=== PATIENT | female | born 1965 | race Caucasian/White ===

== ENCOUNTER 2020-04-06 08:12 | Outpatient (REF) | payer OTHER, SELFPAY ==
[2020-04-06 08:41] LABS: COVID-19 Test Negative (Negative)
== END 2020-04-06 08:13 | disposition home or self-care (01) ==
LOC: HO.LAB 08:12
PROVIDERS: Visit Provider Internal Medicine
DX: Z20.828 Contact with and (suspected) exposure to other viral communicable diseases (principal)
CPT/HCPCS: 87635; C9803

== ENCOUNTER 2020-08-23 19:27 | Outpatient (REF) | payer OTHER, SELFPAY ==
--- NOTE | ~2020-08-23 | MR_ITS ---
EXAMINATION: MR CERVICAL SPINE WITHOUT CONTRAST CLINICAL INFORMATION: Cervical radiculopathy on left side. COMPARISON: None TECHNIQUE: MRI of the cervical spine was obtained using routine sequences without contrast. FINDINGS: VERTEBRAL BODIES AND PARASPINAL SOFT TISSUES: The marrow signal is homogeneous. There are no compression fractures. Mild disc space narrowing and mild retrosubluxation noted at the C5-C6 level. The paraspinal soft tissues are normal. The vertebral artery flow voids are maintained. The lung apices are clear. On the nondiagnostic localizer acquisition, there is a 2.8 x 1.6 cm cyst which appears to be in the strap musculature to the right of midline. There is an additional 1.8 cm cystic-appearing lesion in the midline floor of mouth and an another 1.7 cm cystic-appearing lesion in the midline tongue base posteriorly. There is question of a small sinus tract which may communicate between the cysts at the base of the tongue and floor of the mouth. The base of tongue cystic lesion also superiorly abuts the larger aforementioned cyst suspected to be within the strap musculature. CERVICOMEDULLARY JUNCTION AND VISUALIZED POSTERIOR FOSSA: The craniovertebral junction and imaged portions of the brain parenchyma appear normal. No cord signal abnormality or syrinx is seen. SPINAL LEVELS: C2-C3: No disc pathology, central canal stenosis, or foraminal narrowing. C3-C4: Very small central disc protrusion. No central canal stenosis or foraminal narrowing. C4-C5: No significant disc pathology. Patent central canal and foramina. C5-C6: Mild loss of disc height and broad-based posterior disc bulge with endplate spurring lateralized more so to the right side with flattening of the ventral thecal sac and impression upon the ventral cord. Significant right foraminal narrowing and mild left foraminal encroachment. C6-C7: No disc pathology. Patent central canal and foramina. C7-T1: No disc abnormality evident. No central canal stenosis or foraminal narrowing. MR/MR cervical spine wo con IMPRESSION: Disc-osteophyte complex and mild loss of disc height at the C5-C6 level lateralized more so to the right side with significant right foraminal encroachment. Mild generalized cervical spondylosis elsewhere with a small central disc protrusion at the C3-C4 level. Approximate 1.8 cm cystic lesion in the midline floor of mouth anteriorly with what appears to represent a sinus tract communicating with an another 1.7 cm cystic lesion in the midline tongue base. Additional inferiorly abutting larger 2.8 cm cyst which is suspected to be within the strap musculature to the right of midline. Although indeterminate, findings may be due to congenital foregut duplication cysts or an atypical presentation of multiple thyroglossal duct cysts. A dedicated MRI or CT scan of the neck with contrast is recommended for further evaluation.
== END 2020-08-23 19:28 | disposition home or self-care (01) ==
LOC: HO.MRI 19:27
PROVIDERS: PCP Internal Medicine; Visit Provider Internal Medicine
DX: M54.12 Radiculopathy, cervical region (principal)
CPT/HCPCS: 72141

== ENCOUNTER 2020-09-01 07:22 | Outpatient (REF) | payer OTHER, SELFPAY ==
[2020-09-01 11:07] LABS: MANUAL DIFF FLAG NO
[2020-09-01 11:12] LABS: Basophils Absolute Auto 0.1 X10*3/uL (0.0-0.2); Basophils Percent Auto 0.4 % (0-2); Eosinophils Absolute Auto 0.2 X10*3/uL (0.0-0.4); Eosinophils Percent Auto 1.3 % (0-4); Hematocrit 45.5 % (37-47); Hemoglobin 15.2 g/dl (12.0-16.0); Imm Gran Abs Auto 0.04 X10*3/uL (0.00-0.03); Imm Gran Pct Auto 0.3 % (0.0-0.4); Mean Corpuscular HGB Conc 33.4 g/dl (31.0-35.0); Mean Corpuscular Hemoglobin 30.9 pg (27.0-33.0); Mean Corpuscular Volume 92.5 fL (80-98); Mean Platelet Volume 10.9 fL (9.4-12.3); Monocytes Absolute Auto 0.7 X10*3/uL (0.1-1.2); Monocytes Percent Auto 5.7 % (2-11); Neutrophils Absolute Auto 9.6 X10*3/uL (2.0-8.3); Neutrophils Percent Auto 76.3 % (45-73); Platelet Count 260 X10*3/uL (160-400); Red Blood Count 4.92 X10*6/uL (4.20-5.50); Red Cell Distribution Width 13.2 % (11.0-16.0); White Blood Count 12.6 X10*3/uL (4.8-10.8)
[2020-09-01 18:03] LABS: Alanine Aminotransferase 17 U/L (0-31); Albumin Level 4.2 g/dL (3.5-5.0); Alkaline Phosphatase 74 U/L (39-117); Anion Gap 14 (12-20); Aspartate Amino Transferase 17 U/L (5-31); Bilirubin Total 0.3 mg/dL (0.0-1.0); Blood Urea Nitrogen 21 mg/dL (9-16); Calcium 8.9 mg/dL (8.4-10.2); Carbon Dioxide 27 mmol/L (22-29); Chloride 106 mmol/L (96-108); Cholesterol 293 mg/dL; Estimated Glomerular Filt Rate > 60; Glucose Fasting 90 mg/dL (60-99); HDL Cholesterol 56 mg/dL; LDL Cholesterol Calculated 216 mg/dl; Potassium 4.6 mmol/L (3.3-5.1); Sodium 142 mmol/L (135-145); Triglycerides 106 mg/dL
== END 2020-09-01 07:23 | disposition home or self-care (01) ==
LOC: HO.WFDLDS 07:22
PROVIDERS: Visit Provider Internal Medicine
DX: Z00.00 Encounter for general adult medical examination without abnormal findings (principal); Z13.220 Encounter for screening for lipoid disorders
CPT/HCPCS: 36415; 80053; 80061; 85025

== ENCOUNTER 2020-09-02 13:26 | Outpatient (REF) | payer OTHER, SELFPAY ==
--- NOTE | ~2020-09-02 | MR_ITS ---
EXAMINATION: MRI NECK WITHOUT AND WITH CONTRAST CLINICAL INFORMATION: Follow up evaluation of cystic structures on prior cervical MRI. COMPARISON: MRI cervical spine from 08/23/2020. TECHNIQUE: MRI of the neck was obtained using routine sequences without and with contrast. Intravenous contrast: Gadavist 6 mL. Limited study with motion artifacts. FINDINGS: As seen on the prior study, there are cystic lesions in the midline floor of the mouth distorting the geniohyoid musculature. The most anterior cyst measures approximately 1.2 x 1.6 x 1.4 symmetric in size. Minimal peripheral enhancement evident without diffusion signal abnormality. There is either a cyst or a linear tract at the posterior margin of the cyst which measures 1.2 x 0.6 cm in size. Posterior to this structure in the region of foramen cecum, there is another cystic-appearing lesion with mild peripheral enhancement at the midline tongue base measuring 1 x 1.6 x 0.9 cm. There is a larger lobulated cystic structure with peripheral enhancement inferiorly subtending the hyoid bone in the strap musculature, which measures 3 x 1.8 x 2.4 cm in size. The cystic lesion partially protrudes into the preepiglottic fat on the right side and distorts the floor of the vallecula on the right side. The fixed portion of the epiglottis is also distorted with some posterior deflection by the cystic lesion, as is the anterior aspect of the right aryepiglottic fold. There is a small heterogeneously enhancing 1 cm lesion in the left thyroid lobe. The thyroid gland is otherwise relatively normal. No cervical adenopathy is seen. The parotid and submandibular glands appear normal. The lung apices are clear. The nasopharynx is normal. The glottic portion of the larynx appears normal. The marrow signal is homogeneous. The imaged orbits are normal and the paranasal sinuses are fairly well aerated. MR/MR orbits face neck wo/w con IMPRESSION: Limited study with motion artifacts. Cystic lesions along the midline floor of the mouth with mild peripheral enhancement and no obvious diffusion signal abnormality. Most posterior cyst is at the level of the midline tongue base in the region of foramen cecum. Larger inferior lobulated cyst partially embedded within the strap musculature and protruding into the preepiglottic fat space, to underlie the hyoid bone. Although indeterminate, location and appearance of lesions favor multiple thyroglossal duct cysts. Recommend follow up ENT evaluation. The heterogeneously enhancing multilobulated 1 cm left thyroid lesion could be further assessed with follow up sonography.
== END 2020-09-02 13:27 | disposition home or self-care (01) ==
LOC: HO.MRI 13:26
PROVIDERS: Visit Provider Internal Medicine
DX: R93.89 Abnormal findings on diagnostic imaging of other specified body structures (principal)
CPT/HCPCS: 70543; A9585

== ENCOUNTER 2020-09-17 | Outpatient (REF) | payer OTHER, SELFPAY ==
[2020-09-21 15:17] LABS: H Pylori Breath Test NOT DETECTED (NOT DETECTED)
== END 2020-09-17 00:01 | disposition home or self-care (01) ==
LOC: HO.LNP
PROVIDERS: Visit Provider Nurse Practitioner
DX: R10.9 Unspecified abdominal pain (principal)
CPT/HCPCS: 83013

== ENCOUNTER → 2020-09-17 09:08 | Outpatient (BNVA) | payer OTHER, SELFPAY | PROVIDERS: PCP Internal Medicine; Visit Provider Nurse Practitioner ==

== ENCOUNTER 2020-09-21 14:15 | Outpatient (REF) | payer OTHER, SELFPAY ==
--- NOTE | ~2020-09-21 | XR_ITS ---
EXAMINATION: BILATERAL ELBOW X-RAY CLINICAL INFORMATION: Pain COMPARISON: None TECHNIQUE: 3 views of each elbow FINDINGS: Bone alignment is normal. No fracture or dislocation is seen. There are small osteophytes seen projecting off the coronoid processes bilaterally. The joint spaces are otherwise normal. There is no joint effusion. Soft tissues are normal. XR/XR elbow LT min 3V IMPRESSION: Small osteophytes projecting off the coronoid processes bases bilaterally. Otherwise unremarkable exam.
--- NOTE | ~2020-09-21 | XR_ITS ---
EXAMINATION: BILATERAL ELBOW X-RAY CLINICAL INFORMATION: Pain COMPARISON: None TECHNIQUE: 3 views of each elbow FINDINGS: Bone alignment is normal. No fracture or dislocation is seen. There are small osteophytes seen projecting off the coronoid processes bilaterally. The joint spaces are otherwise normal. There is no joint effusion. Soft tissues are normal. XR/XR elbow RT min 3V IMPRESSION: Small osteophytes projecting off the coronoid processes bases bilaterally. Otherwise unremarkable exam.
--- NOTE | ~2020-09-21 | XR_ITS ---
EXAMINATION: XR THORACIC SPINE CLINICAL INFORMATION: Pain COMPARISON: None TECHNIQUE: 3 views of the thoracic spine were obtained. FINDINGS: Bone alignment is normal. No fracture or dislocation is seen. Disc spaces are normal. Paraspinal soft tissues are normal. XR/XR thoracic spine 3V IMPRESSION: Unremarkable examination.
[2020-09-21 15:17] LABS: MANUAL DIFF FLAG NO
[2020-09-21 15:23] LABS: Basophils Percent Auto 0.4 % (0-2); Eosinophils Absolute Auto 0.2 X10*3/uL (0.0-0.4); Eosinophils Percent Auto 1.8 % (0-4); Hematocrit 39.7 % (37-47); Hemoglobin 13.7 g/dl (12.0-16.0); Imm Gran Abs Auto 0.04 X10*3/uL (0.00-0.03); Imm Gran Pct Auto 0.4 % (0.0-0.4); Lymphocytes Percent Auto 18.6 % (20-40); Mean Corpuscular HGB Conc 34.5 g/dl (31.0-35.0); Mean Corpuscular Volume 89.8 fL (80-98); Mean Platelet Volume 10.5 fL (9.4-12.3); Monocytes Absolute Auto 0.6 X10*3/uL (0.1-1.2); Monocytes Percent Auto 6.1 % (2-11); Neutrophils Absolute Auto 7.7 X10*3/uL (2.0-8.3); Neutrophils Percent Auto 72.7 % (45-73); Platelet Count 244 X10*3/uL (160-400); Red Blood Count 4.42 X10*6/uL (4.20-5.50); Red Cell Distribution Width 12.8 % (11.0-16.0); White Blood Count 10.5 X10*3/uL (4.8-10.8)
== END 2020-09-21 14:16 | disposition home or self-care (01) ==
LOC: HO.LAB 14:15
PROVIDERS: PCP Internal Medicine; Visit Provider Internal Medicine
DX: D72.829 Elevated white blood cell count, unspecified (principal); M25.522 Pain in left elbow; M25.521 Pain in right elbow; M54.6 Pain in thoracic spine
CPT/HCPCS: 36415; 72072; 73080; 85025

== ENCOUNTER 2020-10-21 17:57 | Outpatient (REF) | payer OTHER, SELFPAY ==
--- NOTE | ~2020-10-21 | MR_ITS ---
EXAMINATION: Unenhanced and IV contrast enhanced MRI of the neck, orbit and face. CLINICAL INFORMATION: Follow-up abnormality on prior MRI. Cystic structures on floor of mouth. Cystic lesion in neck. Abnormality noted on 09/02/2020 MRI of the neck and 08/23/2020 MRI of the cervical spine. COMPARISON: MRI cervical spine 08/23/2020, MRI neck, orbits and facial region 09/02/2020 TECHNIQUE: MRI of the neck, orbits and face was obtained using routine sequences without and with contrast. Intravenous contrast: Gadavist 6 mL. FINDINGS: No cervical adenopathy is identified. The parotid glands are homogeneous in signal. The previously noted cystic lesions within the sublingual space and right parasagittal anterior neck are unchanged compared with 09/02/2020. Multiple well-circumscribed uniform high T2-weighted cystic foci are present along the midline of the sublingual region with mass effect upon the geniohyoid musculature. The largest discrete cystic focus measures 1.6 cm in diameter and is present anteriorly. As previously noted, this larger sublingual cystic focus demonstrates minimal peripheral thin contiguous enhancement (series 8 image 21). Closely approximated or possibly contiguous multifocal cystic areas which are midline and just right of midline are noted more posteriorly to the larger lesion within the sublingual space without associated nodular enhancement. A lobulated cystic region measuring 3 cm X 1.8 cm X 2.4 cm subtends the hyoid bone within the strap musculature along the right parasagittal anterior aspect of the neck and is unchanged in size, configuration and associated mass effect. This focus demonstrates mild thin peripheral enhancement without evidence of associated nodular enhancement or MRI-identifiable calcifications. A component of this lesion protrudes into the right parasagittal preepiglottic fat and partially effaces the right lateral aspect of the vallecula. A heterogeneously enhancing nodule within the left lobe of the thyroid measures 1.6 cm X 1.2 cm in transverse axial dimensions (series 6 image 35, series 8 image 35). Making allowances for interval differences in slice selection, this lesion is unchanged compared with 01/02/2021 based on contemporaneous review of the 09/02/2020 examination. No cervical lymphadenopathy is visualized. Susceptibility artifact consistent with the presence of an anterior plate and screw fixation is newly visualized at C5-C6. The parotid, submandibular and visualized components of the sublingual glands are normal in appearance. MR/MR orbits face neck wo/w con IMPRESSION: 1. Unchanged floor of mouth and right anterior cervical cystic lesions. Lesions are present within the midline sublingual region and right parasagittal anterior cervical region. The lesions demonstrate minimal thin peripheral enhancement. This finding may represent a thyroglossal duct cyst with extension into the floor the mouth. These lesions demonstrate no nodular or masslike components nor definitive MRI-identifiable associated calcifications. Rarely thyroglossal duct cysts may be associated with the development of papillary thyroid carcinoma which may manifest as calcifications or masses associated with the thyroglossal duct cyst. 2. Unchanged 1.6 cm indeterminate nodule within the left lobe of the thyroid. Given that this nodule measures greater than 1.5 cm in diameter, as clinically indicated, recommend further evaluation with dedicated thyroid ultrasonography and possible fine-needle aspiration biopsy as warranted based on sonographic evaluation. 3. Status post C5-C6 anterior cervical discectomy and fusion, new compared with 09/02/2020.
== END 2020-10-21 17:58 | disposition home or self-care (01) ==
LOC: HO.MRI 17:57
PROVIDERS: Visit Provider Internal Medicine
DX: R93.89 Abnormal findings on diagnostic imaging of other specified body structures (principal)
CPT/HCPCS: 70543; A9585

== ENCOUNTER 2020-10-28 16:05 | Outpatient (REF) | payer OTHER, SELFPAY ==
--- NOTE | ~2020-10-28 | US_ITS ---
EXAMINATION: US THYROID CLINICAL INFORMATION: Lesion of thyroid. COMPARISON: None TECHNIQUE: Linear transducer grayscale and color Doppler examination with attention to the region of the thyroid. FINDINGS: SIZE: Measurements of the thyroid lobes and nodules are given in sagittal, anteroposterior and transverse dimensions respectively. Right Thyroid Lobe: 5.3 x 2.3 x 1.8 cm, volume 11.5 mL. Parenchyma: The gland echotexture is homogeneous. Thyroid vascularity is normal. Left Thyroid Lobe: 5.1 x 2.2 x 2.1 cm, volume 12.3 mL. Parenchyma: The gland echotexture is homogeneous. Thyroid vascularity is normal. Isthmus: 0.3 cm in maximum AP dimension. Estimated total number of nodules greater than or equal to 1 cm: 2. Comprehensive Advisor nodules are described as follows: 1. Location: Left mid. Size: 1.6 x 1.0 x 1.2 cm, volume 1.0 mL. Nodule characteristics: Composition: Solid/almost completely solid (2). Echogenicity: Hyperechoic (1). Shape: Not taller than wide (0). Margins: Smooth (0). Echogenic Foci: Punctate echogenic foci (3). ACR TI-RADS total points: 6 ACR TI-RADS category: 4 2. Location: Left mid. Size: 1.0 x 0.8 x 0.9 cm, volume 0.4 mL. Nodule characteristics: Composition: Solid/almost completely solid (2). Echogenicity: Isoechoic (1). Shape: Not taller than wide (0). Margins: Ill-defined (0). Echogenic Foci: None (0). ACR TI-RADS total points: 3 ACR TI-RADS category: 3 3. Location: Right inferior. Size: 0.4 x 0.3 x 0.3 cm, volume 0.02 mL. Nodule characteristics: Composition: Solid/almost completely solid (2). Echogenicity: Hypoechoic (2). Shape: Not taller than wide (0). Margins: Ill-defined (0). Echogenic Foci: None (0). ACR TI-RADS total points: 4 ACR TI-RADS category: 4 NODES: No lymphadenopathy is seen in the tissue surrounding the thyroid gland. US/US thyroid IMPRESSION: A dominant nodule in the upper mid left thyroid lobe is demonstrated. TI-RADS category 4, 1.6 cm, this would meet the ACR TI-RADS criteria recommendation for FNA. Nodule #1. (Referring physician staff is being called, to be alerted of the above findings and recommendations.) CM ACR TI-RADS RECOMMENDATION REFERENCE: Ultrasound-guided fine-needle aspiration, followup ultrasound, no further follow up. * TR1 (0 point) and TR 2 (2 points): No FNA or follow up * TR3 (3 points): FNA if more than or equal to 2.5 cm in maximum dimension, followup ultrasound in 1, 3 and 5 years if 1.5 to 2.4 cm in maximum dimension. * TR4 (4-6 points): FNA if more than or equal to 1.5 cm in maximum dimension, followup ultrasound in 1, 2, 3 and 5 years if 1 to 1.4 cm in maximum dimension. * TR5 (more than or equal to 7 points): FNA if more than or equal to 1 cm in maximum dimension, followup ultrasound every year for 5 years if 0.5 to 0.9 cm in maximum dimension. * TR3, TR4 or TR5 nodules that are below the size threshold for follow up receive no follow up.
== END 2020-10-28 16:06 | disposition home or self-care (01) ==
LOC: HO.US 16:05
PROVIDERS: PCP Internal Medicine; Visit Provider Internal Medicine
DX: E07.89 Other specified disorders of thyroid (principal)
CPT/HCPCS: 76536

== ENCOUNTER 2020-11-11 09:59 | Outpatient (REF) | payer OTHER, SELFPAY ==
[2020-11-11 13:33] LABS: Free T4 (Free Thyroxine) 1.04 ng/dL (0.71-1.85); Thyroid Stimulating Hormone 0.78 uIU/mL (0.32-4.0)
== END 2020-11-11 10:00 | disposition home or self-care (01) ==
LOC: HO.LAB 09:59
PROVIDERS: PCP Internal Medicine; Visit Provider Internal Medicine
DX: E04.2 Nontoxic multinodular goiter (principal); Z79.899 Other long term (current) drug therapy; Z87.891 Personal history of nicotine dependence
CPT/HCPCS: 36415; 84439; 84443

== ENCOUNTER 2020-11-15 10:55 | Outpatient (REF) | payer OTHER, SELFPAY ==
--- NOTE | ~2020-11-15 | XR_ITS ---
EXAMINATION: XR CERVICAL SPINE CLINICAL INFORMATION: Status post C5-C6 ACDF COMPARISON: None TECHNIQUE: 6 views of the cervical spine, inclusive of flexion and extension views, were obtained. FINDINGS: There is mild straightening of cervical lordosis. There is ventral plate and screws at C5 and C6 vertebra with intervening bone graft for anterior fusion. Rest of the disc levels, vertebral heights and alignment is normal. On flexion and extension views there is no subluxation seen visualized fused levels and rest of the cervical spine. The craniovertebral junction is normal. No acute fracture seen. The prevertebral soft tissues are normal. XR/XR cervical spine min 6V IMPRESSION: Bone graft and anterior plate and screws for C5-C6 disc fusion. Rest of the visualized cervical spine is unremarkable. There is no subluxation seen on flexion-extension views at the fused level or in the rest of the cervical spine.
== END 2020-11-15 10:56 | disposition home or self-care (01) ==
LOC: HO.XRAY 10:55
PROVIDERS: PCP Internal Medicine; Referring Provider Internal Medicine; Visit Provider Neurological Surgery
DX: M43.22 Fusion of spine, cervical region (principal)
CPT/HCPCS: 72052

== ENCOUNTER 2020-11-18 07:28 | Outpatient (REF) | payer OTHER, SELFPAY ==
--- NOTE | 2020-11-18 08:08 | PM.OP ---
Brief Operative Note Date of Service: 11/18/20 Surgeon: Karla Barbour, DO This is doctor Karla Barbour. This is an ultrasound-guided fine-needle aspiration report. Date of Examination: 11/18/2020 Indication: Multinodular Thyroid Porcedure: Procedure was explained to the patient. Alternatives, the risk and benefits were discussed. Written consent was obtained. A time-out was also obtained. After sterile preparation, fine-needle aspiration of a left mid pole 1.6 cm thyroid nodule was performed using direct ultrasound guidance to confirm accurate needle placement. Four aspirations were made using 27 gauge needles. Samples were submitted for cytology. One pass was dedicated for [employer] Gene sequencing waste and batting waste chopper testing. The patient tolerated the procedure well. Aftercare instructions were provided. Impression: Uncomplicated fine needle aspiration biopsy of a left mid pole 1.6 cm thyroid nodule under ultrasound guidance. Was an Calciner Operator used for this Procedure?: No Estimated blood loss (mL): 0
[2020-11-18] MEDS: Lidocaine HCl 1 % MPF 5 ML VIAL SUBCUT (08:48)
== END 2020-11-18 07:29 | disposition home or self-care (01) ==
LOC: HO.US 07:28
PROVIDERS: PCP Internal Medicine; Referring Provider Internal Medicine; Visit Provider Internal Medicine
DX: E04.2 Nontoxic multinodular goiter (principal)
CPT/HCPCS: 10005; 88172; 88173

== ENCOUNTER 2020-11-26 07:13 | Day surgery (SDC) | payer OTHER, SELFPAY ==
[2020-11-22 15:14] VITALS: BMI 24.4
--- NOTE | 2020-11-25 08:28 | HO.ANESPROP2 ---
Documented by User: Danyell Duran 11/25/20 08:29 HPI - Anesthesia Eval Consult details Narrative: 55yo F for Upper Endoscopy and Colonoscopy PMFSH Active Problems Active Problems: All Active Problems (Updated 11/22/20 @ 15:17 by Mary Garza) Nausea and vomiting (Acute) Abdominal bloating (Acute) Colon cancer screening (Acute) Multinodular thyroid (Acute) Past Medical History Medical History (Updated 11/26/20 @ 08:27 by Carin Lockwood) Cervical radiculopathy Elevated cholesterol Glaucoma Hx of gastritis Hx of migraine headaches Multinodular thyroid Osteoarthritis TMJ syndrome Family History Family History Mother Diabetes Uterine cancer Hypertension Father Diabetes Hypertension Stroke Surgical History Surgical History History of esophagogastroduodenoscopy (EGD) History of spinal fusion Hx of cholecystectomy Hx of dilation and curettage Hx of tonsillectomy Hx of tubal ligation Social History Social History Household Members: Spouse Alcohol intake: never Patient Tobacco Use Status: Never used Tobacco Use of substances other than those prescribed or required for medical reasons: No Advance Directives Information Provided: No Current occupational status: unemployed Meds Allergies Allergy/AdvReac Type Severity Reaction Status Date / Time blue dye Allergy Mild Unknown Verified 11/26/20 07:26 iodine Allergy Mild Unknown Verified 11/26/20 07:26 red dye Allergy Mild Unknown Verified 11/26/20 07:26 tree and shrub pollen Allergy Mild Unknown Verified 11/26/20 07:26 erythromycin base Allergy Unknown Verified 11/26/20 07:26 Home Medications Medication Instructions Recorded Confirmed Last Taken Type acyclovir 800 mg tablet 800 mg PO BID 09/17/20 11/22/20 Unknown History methocarbamol 750 mg tablet 750 mg PO TID PRN 09/17/20 11/22/20 Unknown History rosuvastatin 10 mg tablet 10 mg PO BEDTIME 09/17/20 11/22/20 Unknown History zolmitriptan 5 mg tablet 5 mg PO Q2-4H PRN 09/17/20 11/22/20 11/26/20 01:45 History npfktpxqoh-voydqnpwftmry-qxarlexn 1 cap PO DAILY PRN cap 11/11/20 11/22/20 11/26/20 07:00 History 50 mg-300 mg-40 mg capsule cyclosporine 0.05 % eye drops in a drp OPHTHALMIC (EYE) BID ea 11/11/20 11/11/20 Unknown History dropperette erenumab-aooe 70 mg/mL mg SUBCUT 11/11/20 11/11/20 Unknown History subcutaneous auto-injector ondansetron HCl 4 mg tablet 4 mg PO BEDTIME PRN 11/11/20 11/22/20 11/26/20 01:45 History valacyclovir 1 gram tablet 1,000 mg PO DAILY 11/11/20 11/11/20 Unknown History Exam Exam Date and Time: November 25, 2020 0828 Height,Weight and Vital Signs: Height 5 ft 3 in Weight 62.596 kg Pertinent Lab Results Pertinent Lab Results: Laboratory Tests 09/01/20 09/21/20 07:25 14:53 WBC 10.5 Hgb 13.7 Hct 39.7 Plt Count 244 Sodium 142 Potassium 4.6 Chloride 106 Carbon Dioxide 27 BUN 21 H Creatinine 0.81 Assessment and Plan Assessment Anesthesia Assessment: Chart Reviewed Documented by User: Carin Lockwood 11/26/20 08:27 [facility] Past Medical History Medical History (Updated 11/26/20 @ 08:27 by Carin Lockwood) Cervical radiculopathy Elevated cholesterol Glaucoma Hx of gastritis Hx of migraine headaches Multinodular thyroid Osteoarthritis TMJ syndrome Family History Family History Mother Diabetes Uterine cancer Hypertension Father Diabetes Hypertension Stroke Family history of problems with anesthesia: No Surgical History Surgical History History of esophagogastroduodenoscopy (EGD) History of spinal fusion Hx of cholecystectomy Hx of dilation and curettage Hx of tonsillectomy Hx of tubal ligation History of Problems with Anesthesia: No Social History Social History Household Members: Spouse Alcohol intake: never Patient Tobacco Use Status: Never used Tobacco Use of substances other than those prescribed or required for medical reasons: No Advance Directives Information Provided: No Current occupational status: unemployed Meds Allergies Allergy/AdvReac Type Severity Reaction Status Date / Time blue dye Allergy Mild Unknown Verified 11/26/20 07:26 iodine Allergy Mild Unknown Verified 11/26/20 07:26 red dye Allergy Mild Unknown Verified 11/26/20 07:26 tree and shrub pollen Allergy Mild Unknown Verified 11/26/20 07:26 erythromycin base Allergy Unknown Verified 11/26/20 07:26 Home Medications Medication Instructions Recorded Confirmed Last Taken Type acyclovir 800 mg tablet 800 mg PO BID 09/17/20 11/22/20 Unknown History methocarbamol 750 mg tablet 750 mg PO TID PRN 09/17/20 11/22/20 Unknown History rosuvastatin 10 mg tablet 10 mg PO BEDTIME 09/17/20 11/22/20 Unknown History zolmitriptan 5 mg tablet 5 mg PO Q2-4H PRN 09/17/20 11/22/20 11/26/20 01:45 History lvcxrvhqpp-hnpnivtsjbgnz-ozfyqcxb 1 cap PO DAILY PRN cap 11/11/20 11/22/20 11/26/20 07:00 History 50 mg-300 mg-40 mg capsule cyclosporine 0.05 % eye drops in a drp OPHTHALMIC (EYE) BID ea 11/11/20 11/11/20 Unknown History dropperette erenumab-aooe 70 mg/mL mg SUBCUT 11/11/20 11/11/20 Unknown History subcutaneous auto-injector ondansetron HCl 4 mg tablet 4 mg PO BEDTIME PRN 11/11/20 11/22/20 11/26/20 01:45 History valacyclovir 1 gram tablet 1,000 mg PO DAILY 11/11/20 11/11/20 Unknown History Exam Height,Weight and Vital Signs: Vital Signs Temp Pulse Resp BP Pulse Ox 11/26/20 07:27 97.3 F 49 L 16 119/57 L 99 Narrative Narrative: Dry retching seems to have resolved after IV antiemetics Airway Mallampati Class: III (Limited mouth opening- TMJ syndrome) TM Dist: >3cm Neck ROM: Full (S/p C4,5 cervical fusion but good extension) Heart: RRR Lungs: CTAB Assessment and Plan Assessment Anesthesia Assessment: Anesthesia Plan Discussed and Chart Reviewed Final Anesthetic Review NPO: Yes ASA Class: II Final Preanesthetic Review: No Changes in Pt Med Stat, Meds/Allgs Chart Reviewed, Consent Obtained/Reviewed and Anes Risks/Benef Reviewed Patient Risk: Intermediate Procedure Risk: Low Assessment/Block/Sedation in SS: Assess/Block/Sedation-SS Anesthetic Plan Anesthetic Plan: MAC: Disposition: Standard PACU
[2020-11-26] VITALS (14 sets, daily range): BP systolic 116–177; BP diastolic 57–90; PULSE 49–81; RESP 16–20; TEMP 36.2–36.6; O2SAT 96–100
[2020-11-26] MEDS: Lactated Ringers 1,000 ML 100 ML IVCONT ×2 (07:44→18:59)
[2020-11-26] MEDS: ondansetron HCL 4 MG/2 ML VIAL IVPUSH ×2 (08:00→13:20)
--- NOTE | 2020-11-26 08:05 | PC.NURSE ---
pt requesting to take own zomig 5mg for migraine. ok'd by anesthesia and taken at 0805am.
[2020-11-26] MEDS: Metoclopramide HCl 10 MG/2 ML VIAL IVPUSH (08:19)
--- NOTE | 2020-11-26 08:19 | W.PM.OPN ---
Operative Note Operative Note Date of Service: 11/26/20 Narrative: Pre-op diagnosis: colon cancer screening, abdominal pain, nausea and vomiting Post-op diagnosis: other ( gastritis, colon polyps, diverticulosis) Procedure: FLEXIBLE TRANSORAL UPPER GASTROINTESTINAL ENDOSCOPY WITH BIOPSIES AND COLONOSCOPY TILL CECUM WITH BIOPSIES AND SNARE POLYPECTOMY UPPER ENDOSCOPY Consent: Indications for the procedure and potential complications of bleeding, perforation, reaction to medications and missed diagnosis were discussed with the patient and informed consent was obtained. Instrument: Olympus GIF H 190 mid size upper endoscope Monitoring: Vital signs and clinical assessment, continuous EKG monitoring, Pulse oximetry, Carbon Dioxide monitoring and blood pressure monitoring were done throughout the procedure. Procedure: The patient was placed in the left lateral decubitis position and pre-procedure medications were administered and a bite block was placed. The endoscope was inserted into the mouth and advanced under direct vision to the third part of duodenum. A careful inspection was made as the upper endoscope was withdrawn including a retroflexed examination of the proximal stomach; Findings and interventions are described below. Findings: Larynx: Normal Esophagus: GE junction at 38 cms.. No esophagitis or Deleon's. Stomach: Moderate diffuse gastric erythema with scattered superficial antral erosions with small amount of heme. Biopsies were obtained from the gastric body and antrum. Grade 2 flap valve on retroflexed examination of the cardia. Duodenum: Normal bulb and descending duodenum. Biopsies were obtained from 2nd and 3rd part of the duodenum to check for celiac sprue. Intervention: Biopsies as noted above COLONOSCOPY PROCEDURE NOTE Consent: Indications for the procedure and potential complications of bleeding, perforation, reaction to medications and missed diagnosis were discussed with the patient and informed consent was obtained. Instrument: Olympus PCF H 190 L variable stiffness pediatric colonoscope Monitoring: Vital signs and clinical assessment, intermittent blood pressure monitoring, continuous EKG monitoring, Pulse oximetry and Carbon Dioxide monitoring were done throughout the procedure. Colon withdrawl time was 22 minutes. Procedure: The patient was placed in the left lateral decubitis position and pre-procedure medications were administered. After a digital rectal examination of the ano-rectum, the video colonoscope was inserted into the rectum and advanced through the colon to the cecum. The colonoscope was slowly withdrawn in a retrograde panoramic fashion and the colon mucosa was carefully examined including a retroflexed view of the rectum. Findings and interventions are described below. Procedure Difficulty: : Without difficulty Findings: Terminal Ileum: Not evaluated Cecum: Normal Ascending Colon: A 7-8 mm diminutive appearing polyp removed with a cold snare Transverse Colon: Three 5 to 10 mm diminutive appearing polyps removed with a cold bx Descending Colon: Moderate diverticulosis Sigmoid Colon: Moderate diverticulosis Rectum: Normal Ano-rectum: Normal Colon preparation: Good after some irrigation Impression and Post Procedure Diagnosis: Endoscopy Findings: STOMACH: Moderate diffuse gastric erythema with scattered superficial antral erosions with small amount of heme. Biopsies were obtained from the gastric body and antrum. DUODENUM: Normal - bxed to check for celiac sprue Colonoscopy Findings: Four diminutive appearing polyps removed Random biopsies were obtained from the right and left colon Moderate diverticulosis seen in the left colon Plan: Await pathology results Patient has an appointment on 12/17/20 in the GI Clinic with Rachana Lacey NP. Repeat Colonoscopy interval based on path results - in 3-5 years if polyps are adenomatous and 10 years if polyps are hyperplastic. Above findings were reviewed with the patient and Gastritis, colon polyps and diverticulosis handouts were given in the discharge area ADDENDUM: Pt had persistent nausea and bilious vomiting post procedure and remained in recovery area for several hours. She was managed by anesthesia and given IVF, Ondansetron x 2, Phenergan and droperidol with continued symptoms. At the end of the day, due to continuing symptoms, she was admitted to the hospital for overnight observation Surgeon: Mahnaz Urias MD Anesthesia: MAC (Litzy Ramos CRNA) Was an High School Art Teacher used for this Procedure?: Yes High School Art Teacher: Gurinder Modi Estimated blood loss (mL): 0 Pathology: other (A- SMALL BOWEL BXS R/O CELIAC / SPRU B- GASTRIC ANTRUM BXS R/O H. PYLORI C- GASTRIC BODY BXS D- RIGHT SIDED COLON BXS R/O MICROSCOPIC COLITIS E- ASCENDING COLON POLYPS F- ) Condition: stable Disposition: PACU
--- NOTE | 2020-11-26 08:19 | MHC.SHP ---
Pre-Procedural Eval Section A Date of Service: 11/26/20 The patient is an INPATIENT: No The History & Physical has been completed within 30 days and I have reviewed it.: No Section B Chief Complaint: Abdominal Pain Details of Present Illness: colon cancer screening, abdominal pain and bloating, nausea Relevant Family History (Specify if Yes): Yes Relevant Social History: None Present Medications: see Short Stay Collaborative assessment (Migraine HAs, headaches, multinodular goiter) Medical History: Significant History (TMJ syndrome, MNG, nausea and vomiting) History of Previous Operations: Relevant previous surgery/procedure and date(s) ( history of cholecystectomy, history of tubal ligation, EGD) Allergies: Allergies Allergy/AdvReac Type Severity Reaction Status Date / Time blue dye Allergy Mild Unknown Verified 11/26/20 07:26 iodine Allergy Mild Unknown Verified 11/26/20 07:26 red dye Allergy Mild Unknown Verified 11/26/20 07:26 tree and shrub pollen Allergy Mild Unknown Verified 11/26/20 07:26 erythromycin base Allergy Unknown Verified 11/26/20 07:26 Review of Systems Sugical H&P ROS: Negative: Constitution, Cardiovascular and Respiratory and Yes, Specify: Neurological (Migraine MENDOZA) and Gastrointestinal (abd pain, nausea and vomiting) Exam Surgical H&P Exam: Normal: Heart, Normal: Lungs, Normal: Extremities and Normal: Abdomen Plan Diagnosis/Plan: Unchanged I have reviewed the history and physical and performed a pertinent physical examination on my patient. No changes have occurred unless specified.
[2020-11-26] MEDS: Famotidine/PF 20 MG/2 ML VIAL IVPUSH (21:27)
[2020-11-26] MEDS: Dextrose 5 % and 0.9 % NaCl 1,000 ML 100 ML IVCONT (21:28)
--- NOTE | 2020-11-27 03:46 | PC.NURSE ---
PER REPORT FROM 3-11RN, IVF ORDER OF LR IS A PREVIOUS ORDER NOT DISCONTINUED BY MD AND THAT D5NS INFUSING IS THE CORRECT FLUID TO BE RUNNING.
[2020-11-27] MEDS: Dextrose 5 % and 0.9 % NaCl 1,000 ML 100 ML IVCONT (05:47)
[2020-11-27] MEDS: Butalb/Acetamin/Caff 50/325/40 TABLET 1 TAB PO (06:21)
[2020-11-27 07:11] VITALS: BP 113/65; PULSE 56; RESP 17; TEMP 36.2; O2SAT 98
[2020-11-27 08:14] VITALS: O2SAT 97
[2020-11-27] MEDS: Famotidine/PF 20 MG/2 ML VIAL IVPUSH (09:48)
--- NOTE | 2020-11-27 10:09 | MHC.CM.PN ---
[facility] 11/27/20 FEMALE 55 S/P UPPER+LOWER SCOPE. ADMITTED FOR OBSERVATION DUE TO INTRACTABLE n/v UNRELIEVED AFTER RX. [facility] HOME NO SERVICES. PT WILL [facility]RANGE FOR TRANSPORTATION.
--- NOTE | 2020-11-27 10:39 | PM.DS ---
DS: Providers Provider Date of Service: 11/27/20 Primary care physician: Regina Paz MD Consults: 11/26/20 16:54 Consult to Hospitalist Routine Consulting Provider: Hospitalist Reason For Exam: Nausea & V , admit for observation DS: Medications Discharge Medications Home Medications: Home Medications Medication Instructions Recorded Confirmed rosuvastatin 10 mg tablet 10 mg PO BEDTIME 09/17/20 11/26/20 bjxwoekjor-prufvbeujoqpz-qaeprmgn 1 cap PO DAILY PRN cap 11/11/20 11/26/20 50 mg-300 mg-40 mg capsule cyclosporine 0.05 % eye drops in a 1 drp OPHTHALMIC (EYE) BID ea 11/11/20 11/26/20 dropperette valacyclovir 1 gram tablet 1,000 mg PO DAILY 11/11/20 11/26/20 erenumab-aooe [Aimovig 1 syringe SUBCUT QMONTH 11/26/20 11/26/20 Autoinjector] Previous Rx's Medication Instructions Recorded omeprazole 40 mg PO DAILY 42 Days #42 cap 11/27/20 DS: Summary Hospital Course Hospital Course: The patient underwent EGD on outpatient basis for gastritis and was been discharged home the same day, however following the procedre was having intractable nausea and vomitting and therefore was observed in the hospital overnight, hydrated and given antiemetics and by the next day the nausea and vomitting had resolved and was tolerating regular diet. Symptoms likely from anesthesia. Noted to have gastritis on EGD and thought to be related to Valacyclovir which is being change to Acyclovir at this time. Time Spent with Patient Time attestation: Total time spent providing and/or coordinating discharge services: Discharge coordination time: Greater than 30 minutes Quality: Stroke Does the patient have a stroke diagnosis?: No Physical Exam Vital Signs: Vital Signs: Last Vital Signs Temp 97.2 F 11/27/20 07:11 Pulse 56 11/27/20 07:11 Resp 17 11/27/20 07:11 BP 113/65 11/27/20 07:11 Pulse Ox 97 11/27/20 08:14 Body Mass Index 24.4 Const: Other: Constitutional Awake and Alert, No apparent distress Neck Supple, No lymphadenopathy Cardiovascular RRR, No M/R/G, S1 S2, No S3 S4, No pedal edema Respiratory Lungs clear, No respiratory distress Gastrointestinal Non tender, Non-distended Skin No rash Neurological Alert & oriented x3 Psychological Appropriate affect DS: Data Data Completed and Pending Pending studies at discharge: Pending at discharge 11/26/20 08:58 Surgical [PTH] Routine Discharge Plan Discharge Patient Disposition: Home, Self-Care Referrals: Regina Paz MD [Primary Care Provider] - 1 Week Mahnaz Urias MD [Physician] - Discharge Medications: New omeprazole 40 mg capsule,delayed release(DR/EC) 40 mg PO DAILY 42 Days Qty: 42 RF: 0 Continued rosuvastatin 10 mg tablet 10 mg PO BEDTIME RF: 0 rcsvzjgmjp-kbkrdvtqruane-voyf 50-300-40 mg capsule 1 cap PO DAILY PRN (Reason: Migraine Headache) RF: 0 cyclosporine 0.05 % dropperette 1 drp ophthalmic (eye) BID RF: 0 valacyclovir 1 gram tablet 1,000 mg PO DAILY RF: 0 Discontinued bisacodyl [Dulcolax (bisacodyl)] 5 mg tablet,delayed release (DR/EC) 10 mg PO BEDTIME 2 Days Qty: 4 RF: 0 peg 3350-electrolytes [Golytely] 236-22.74-6.74 -5.86 gram recon soln 240 ml PO Q10M 1 Days Qty: 4000 RF: 0 No Action Aimovig Autoinjector 70 mg/mL auto-injector 1 syringe subcut QMONTH RF: 0 Discharge Orders: Discharge Order (Routine); Ordered 11/26/20 Ordered By: Mahnaz Urias Patient Instructions: Gastritis (DC), Diverticulosis (DC), Colorectal Polyps (DC), Diverticulosis Diet (GEN) Activity Restrictions/Additional Instructions: Thank you for coming in for a appointment today. Endoscopy showed irritation some a and item biopsies from the stomach and upper small intestine. Colonoscopy showed diverticulosis. For polyps were removed. Please keep follow-up appointment with Rachana Lacey NP on 12/17/20 to discuss biopsy results
--- NOTE | 2020-11-27 12:14 | PC.NURSE ---
Pt discharged home no services, iv access d/c'd,no c/o pain tolerating diet
== END 2020-11-27 12:15 | disposition home or self-care (01) ==
LOC: HO.SSS 18:37 → HO.S3 18:39
PROVIDERS: Internal Medicine Gastroenterology; PCP Internal Medicine; Visit Provider Internal Medicine
PROC: (CPT 45385; principal; 2020-11-26 08:30)
DX: Z12.11 Encounter for screening for malignant neoplasm of colon (principal); K63.5 Polyp of colon; K63.89 Other specified diseases of intestine; K57.30 Diverticulosis of large intestine without perforation or abscess without bleeding; R10.9 Unspecified abdominal pain; K29.50 Unspecified chronic gastritis without bleeding; Z90.49 Acquired absence of other specified parts of digestive tract; Z79.899 Other long term (current) drug therapy
CPT/HCPCS: 45385; 45380; 43239; 88305; 88342; J0131; J1200; J1790; J2405; J2550; J2765

== ENCOUNTER → 2020-12-17 12:46 | Outpatient (BNVA) | payer OTHER, SELFPAY | PROVIDERS: PCP Internal Medicine; Visit Provider Nurse Practitioner ==

== ENCOUNTER 2021-01-17 12:12 | Outpatient (REF) | payer OTHER, SELFPAY ==
[2021-01-17 13:52] LABS: Blood Urea Nitrogen 15 mg/dL (9-16); Estimated Glomerular Filt Rate > 60
== END 2021-01-17 12:13 | disposition home or self-care (01) ==
LOC: HO.WFDLDS 12:12
PROVIDERS: Visit Provider Otolaryngology
DX: Z01.812 Encounter for preprocedural laboratory examination (principal); Q89.2 Congenital malformations of other endocrine glands
CPT/HCPCS: 36415; 82565; 84520

== ENCOUNTER 2021-01-18 07:19 | Outpatient (REF) | payer OTHER, SELFPAY ==
--- NOTE | ~2021-01-18 | MR_ITS ---
EXAMINATION: MRI NECK WITHOUT AND WITH CONTRAST CLINICAL INFORMATION: Thyroglossal duct cyst status post resection. COMPARISON: Neck MRI from 10/21/2020. Thyroid ultrasound from 10/28/2020. TECHNIQUE: MRI of the neck was obtained using routine sequences without and with contrast. Intravenous contrast: Gadavist 6 mL. FINDINGS: Postsurgical changes of the midline anterior neck. The previously demonstrated dominant cystic lesion positioned to the right of midline deep to the strap muscles has largely been resected/collapsed. Well-circumscribed cystic lesions within the midline floor of mouth remain present, measuring up to 1.2 cm anteriorly (previously 1.7 cm) and 0.8 cm posteriorly (previously 0.7 cm). Similar appearance of a sinus tract connecting these cysts within the midline. Other than mild subcutaneous enhancement at the surgical site, there is no abnormal enhancement. No new solid or cystic lesions within the soft tissues of the neck. No discrete fluid collection within the deep tissues of the neck. The premaxillary, retromaxillary, pterygopalatine fossa, parapharyngeal, and prelaryngeal adipose tissue is maintained. Normal appearance of the parotid and submandibular glands. Scattered subcentimeter lymph nodes bilaterally, none of which are pathologically enlarged or abnormally enhancing. Normal mucosal contours of the pharynx and larynx without abnormal enhancement. Multinodular thyroid gland. Redemonstrated 1.5 cm T2 hyperintense lesion within the left thyroid lobe. Multiple additional subcentimeter nodules within the bilateral thyroid lobes. The atlantooccipital and atlantoaxial articulations remain well aligned. Instrumented anterior fusion of C5-C6. There is anatomic alignment of the vertebral bodies and posterior elements. No suspicious marrow edema. The vertebral body heights are maintained. No evidence of epidural collection. There is no prevertebral soft tissue swelling. The major flow voids of the neck are maintained. CT Upper Chest: The visualized lung apices and upper mediastinum are within normal limits. MR/MR orbits face neck wo/w con IMPRESSION: 1. Postsurgical changes of the midline anterior neck. The previously demonstrated dominant cystic lesion positioned within the right midline deep to the strap muscles has largely been resected/collapsed. Residual cystic lesions within the midline floor of mouth remain present and are similar to slightly decreased in size overall. 2. No demonstrated abnormal solid lesions or new fluid collections within the neck. No suspicious enhancement. 3. Redemonstrated thyroid nodules, better characterized on recent thyroid ultrasound.
== END 2021-01-18 07:20 | disposition home or self-care (01) ==
LOC: HO.MRI 07:19
PROVIDERS: Visit Provider Otolaryngology
DX: Q89.2 Congenital malformations of other endocrine glands (principal)
CPT/HCPCS: 70543; A9585

== ENCOUNTER 2021-01-27 07:48 | Outpatient (REF) | payer OTHER, SELFPAY ==
[2021-01-27 12:10] LABS: TSH reflex Free T4 1.03 uIU/mL (0.32-4.0)
== END 2021-01-27 07:49 | disposition home or self-care (01) ==
LOC: HO.WFDLDS 07:48
PROVIDERS: Visit Provider Internal Medicine
DX: E04.1 Nontoxic single thyroid nodule (principal)
CPT/HCPCS: 36415; 84443

== ENCOUNTER 2021-03-04 15:54 | Outpatient (REF) | payer OTHER, SELFPAY ==
--- NOTE | ~2021-03-04 | US_ITS ---
EXAMINATION: US SOFT TISSUE NECK CLINICAL INFORMATION: Question new versus old thyroglossal duct cyst. History of previous of 2 3 thyroglossal duct cysts removed. COMPARISON: None TECHNIQUE: Ultrasound of the neck soft tissues is performed with high- frequency knight-scale imaging and color Doppler. FINDINGS: There is a small heterogeneous lesion in the midline measuring 1.2 x 0.8 x 0.6 suggestive of a remaining thyroglossal cyst. No additional lesions seen. No abnormal lymph nodes seen. US/US soft tiss head and/or neck IMPRESSION: Solitary heterogeneous thyroglossal duct cyst seen in the midline. No additional thyroglossal duct cyst seen No abnormal lymph nodes seen in the submental region.
== END 2021-03-04 15:55 | disposition home or self-care (01) ==
LOC: HO.US 15:54
PROVIDERS: PCP Internal Medicine; Visit Provider Otolaryngology
DX: Z01.818 Encounter for other preprocedural examination (principal); Q89.2 Congenital malformations of other endocrine glands
CPT/HCPCS: 76536

== ENCOUNTER 2021-05-09 17:55 | Outpatient (REF) | payer OTHER, SELFPAY ==
--- NOTE | ~2021-05-09 | MR_ITS ---
EXAMINATION: MR NECK WITHOUT AND WITH CONTRAST CLINICAL INFORMATION: History of thyroglossal duct cyst, status post resection. COMPARISON: Multiple MRI studies, most recent dated 01/18/2021. TECHNIQUE: MRI of the neck was obtained using routine sequences without and with contrast. Intravenous contrast: Gadavist 6 mL. FINDINGS: The study is limited for interpretation due to loss of signal to noise on the axial fat saturated acquisitions. A previous 1.2 cm cystic lesion in the anterior floor of mouth embedded within the geniohyoid musculature has significantly decreased in size, now measuring 0.4 cm. A smaller tract-like linear cystic component in the genioglossus musculature to the right of midline is relatively similar in appearance. A bilobed cystic lesion in the midline base of the tongue is relatively similar in morphology and size compared to the prior examination measuring approximately 1.5 x 0.9 cm on the coronal T2-weighted acquisitions. The previous excised/drained dominant cystic lesion in the strap musculature has not recurred, and chronic postoperative changes are again evident with enhancing scar and granulation tissue. A mild degree of enhancement surrounds the aforementioned small cystic lesions in the floor of the mouth, as on prior imaging. No new cystic lesions are seen within the oral cavity. The pharyngeal mucosal space and larynx appear grossly normal. The orbits are normal. Rightward nasal septal deviation again evident. The paranasal sinuses are fairly well aerated and the mastoid air cells are clear. A nodular lesion within the left thyroid lobe is faintly seen with partial crescentic T1 hyperintensity. The remaining soft tissues of the neck appear relatively normal on the axial T1 and coronal acquisitions somewhat limited due to motion artifacts. The lung apices are clear with suspected pulsation artifacts emanating from the aorta in the right upper lobe. Leftward curvature of the cervical spine evident. Status post previous anterior cervical discectomy and fusion with hardware artifacts at the C5-C6 level. The craniovertebral junction is normal. The imaged portions of the brain demonstrate no acute abnormality. MR/MR orbits face neck wo/w con IMPRESSION: Limited study due to loss of signal to noise on the fat saturated acquisitions and due to motion artifacts on axial T1 weighted imaging. Previous 1.2 cm cystic lesion in the anterior floor of mouth has significantly decreased in size, now measuring 0.4 cm. Remaining cystic tract and bilobed cystic lesion in the floor of mouth and tongue base remain fairly similar in appearance. No recurrent cystic lesion in the strap musculature or preepiglottic fat space as well as can be discerned on this examination. Postoperative changes with enhancing scar tissue at the surgical site.
== END 2021-05-09 17:56 | disposition home or self-care (01) ==
LOC: HO.MRI 17:55
PROVIDERS: Visit Provider Otolaryngology
DX: Q89.2 Congenital malformations of other endocrine glands (principal)
CPT/HCPCS: 70543; A9585

== ENCOUNTER 2021-09-08 13:17 | Outpatient (REF) | payer OTHER, SELFPAY ==
--- NOTE | ~2021-09-08 | MM_ITS ---
EXAMINATION: MM DIAGNOSTIC DIGITAL BREAST TOMOSYNTHESIS, BILATERAL US DIAGNOSTIC ULTRASOUND BREAST, LEFT CLINICAL INFORMATION: Pain posterior inferior left breast. Prior outside mammography currently unavailable. No known family history breast cancer. The lifetime risk of breast cancer based on the Tyrer-Cuzick Model is 7%. COMPARISON: None. TECHNIQUE: Digital breast tomosynthesis is performed in both the craniocaudal and mediolateral oblique views along with computer-aided detection (CAD). Synthesized 2D images are generated from the tomosynthesis. Additional left MLO view is obtained. Ultrasound left breast is targeted to the area of clinical concern inferior breast. Grayscale imaging and color Doppler are performed without and with harmonics. FINDINGS: There are scattered areas of fibroglandular density (ACR BI-RADS breast composition Category b). There are no significant masses, abnormal calcifications, or other abnormalities. The axilla and skin contours are unremarkable. There is no skin thickening or coarsening of the Milton's ligaments. Ultrasound left breast demonstrates no cystic or solid mass or architectural abnormality. No focal duct ectasia. Results are discussed with the patient at time of visit. Patient should be managed based on the clinical impression. Radiology department will attempt to retrieve prior outside mammography to allow for comparison in an addendum report. MM/MM tomosynthesis diagnostic BI IMPRESSION: There are no significant changes from prior study. ASSESSMENT: BI-RADS 1: Negative RECOMMENDATION: 1. Patient's left breast pain should be managed based on the clinical impression. 2. Otherwise, routine annual screening mammography. 3. Radiology department staff will attempt to retrieve prior outside mammography to allow for comparison in an addendum report. This patient's information was entered into a reminder system with a target due date for their next mammogram.
== END 2021-09-08 13:18 | disposition home or self-care (01) ==
LOC: HO.MAMMO 13:17
PROVIDERS: PCP Internal Medicine; Visit Provider Internal Medicine
DX: N64.4 Mastodynia (principal)
CPT/HCPCS: 76642; 77062; 77066

== ENCOUNTER 2021-09-26 13:04 | Outpatient (REF) | payer OTHER, SELFPAY ==
--- NOTE | ~2021-09-26 | XR_ITS ---
EXAMINATION: XR CERVICAL SPINE CLINICAL INFORMATION: Follow-up cervical fusion. COMPARISON: None TECHNIQUE: 6 views of the cervical spine were obtained. FINDINGS: There is normal cervical lordosis. There is C5 and C6 disc fusion stabilized with ventral plate and screws. On flexion-extension views there is no subluxation seen at the fused level or any of the other disc levels. The craniovertebral junction and the C1-C2 alignment is normal. The prevertebral soft tissues are normal. No visible acute fracture or dislocation seen. XR/XR cervical spine 4V IMPRESSION: C5 and C6 fusion with ventral hardware, stable. No subluxation seen on flexion-extension views. No visible acute fracture or dislocation.
== END 2021-09-26 13:05 | disposition home or self-care (01) ==
LOC: HO.XRAY 13:04
PROVIDERS: PCP Internal Medicine; Visit Provider Neurological Surgery
DX: M47.812 Spondylosis without myelopathy or radiculopathy, cervical region (principal)
CPT/HCPCS: 72050

== ENCOUNTER 2021-10-20 10:33 | Outpatient (REF) | payer OTHER, SELFPAY ==
[2021-10-20 11:53] LABS: Alanine Aminotransferase 16 U/L (0-31); Albumin Level 4.3 g/dL (3.5-5.0); Alkaline Phosphatase 61 U/L (39-117); Anion Gap 12 (12-20); Aspartate Amino Transferase 18 U/L (5-31); Bilirubin Total 0.4 mg/dL (0.0-1.0); Blood Urea Nitrogen 13 mg/dL (9-16); Calcium 9.3 mg/dL (8.4-10.2); Carbon Dioxide 26 mmol/L (22-29); Chloride 108 mmol/L (96-108); Cholesterol 277 mg/dL; Estimated Glomerular Filt Rate > 60; Glucose Fasting 80 mg/dL (60-99); HDL Cholesterol 60 mg/dL; LDL Cholesterol Calculated 201 mg/dl; Potassium 4.6 mmol/L (3.3-5.1); Sodium 141 mmol/L (135-145); Total Protein 6.8 g/dL (6.5-8.0); Triglycerides 84 mg/dL
[2021-10-20 12:17] LABS: TSH reflex Free T4 0.58 uIU/mL (0.32-4.0)
== END 2021-10-20 10:34 | disposition home or self-care (01) ==
LOC: HO.WFDLDS 10:33
PROVIDERS: Visit Provider Internal Medicine
DX: E78.5 Hyperlipidemia, unspecified (principal)
CPT/HCPCS: 36415; 80053; 80061; 84443

== ENCOUNTER 2021-12-15 08:45 | Outpatient (REF) | payer OTHER, SELFPAY ==
[2021-12-15 11:54] LABS: Thyroid Stimulating Hormone 0.72 uIU/mL (0.32-4.0)
== END 2021-12-15 08:46 | disposition home or self-care (01) ==
LOC: HO.WFDLDS 08:45
PROVIDERS: Visit Provider Internal Medicine
DX: E04.2 Nontoxic multinodular goiter (principal)
CPT/HCPCS: 36415; 84439; 84443

== ENCOUNTER 2021-12-16 08:05 | Outpatient (REF) | payer OTHER, SELFPAY ==
--- NOTE | ~2021-12-16 | MR_ITS ---
EXAMINATION: MRI NECK WITHOUT AND WITH CONTRAST CLINICAL INFORMATION: Abnormal MRI. Follow-up cyst. COMPARISON: MRI neck 05/09/2021, 01/18/2021, 10/21/2020, 09/02/2020. TECHNIQUE: Multiplanar MR imaging of the neck was performed without and with contrast. A total of FINDINGS: Partial recurrence of the midline cystic lesion within the geniohyoid muscle best depicted on sagittal T2 image 8 of 15 series 2 and coronal image 23 of 32 series 8. This lesion measures 1.6 cm in maximal craniocaudal length. There is however no associated enhancing soft tissue component. The tongue base and epiglottis are normal. Preepiglottic fat is preserved. Glottic and subglottic airways are widely patent. The thyroid gland is normal and the remainder of the visualized visceral soft tissues are normal. Pharyngeal mucosal spaces are symmetric. Parapharyngeal and retromaxillary fat is preserved. Network Contract Manager spaces are symmetric. Parotid and submandibular glands are normal. There are no pathologically enlarged cervical lymph nodes. No mediastinal or axillary adenopathy is visualized within the [id number] of this examination. Lung apices are clear. Vascular flow voids are grossly maintained. There are chronic postoperative changes of an anterior cervical discectomy and fusion at C5-C6. No evidence of spinal canal compromise and no abnormal intramedullary signal changes within the cervical spinal cord. Limited visualization of intracranial anatomy reveals no abnormal finding. 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
== END 2021-12-16 08:06 | disposition home or self-care (01) ==
LOC: HO.MRI 08:05
PROVIDERS: Visit Provider Internal Medicine
DX: R93.89 Abnormal findings on diagnostic imaging of other specified body structures (principal)
CPT/HCPCS: 70543; A9585

== ENCOUNTER 2021-12-16 14:24 | Outpatient (REF) | payer OTHER, SELFPAY ==
--- NOTE | ~2021-12-16 | US_ITS ---
EXAMINATION: US THYROID CLINICAL INFORMATION: Nontoxic multinodular goiter. COMPARISON: Ultrasound soft tissue neck 03/04/2021. Ultrasound soft tissue head/neck thyroid dated 10/28/2020. TECHNIQUE: Linear transducer grayscale and color Doppler examination with attention to the region of the thyroid. FINDINGS: SIZE: Measurements of the thyroid lobes and nodules are given in sagittal, anteroposterior and transverse dimensions respectively. Right Thyroid Lobe: 5.5 x 1.9 x 2.0 cm, volume 11.2 mL. Previously 5.3 x 2.3 x 1.8 cm, volume 11.5 mL. Parenchyma: The gland echotexture is homogeneous. Thyroid vascularity is normal. Left Thyroid Lobe: 4.7 x 2.1 x 2.3 cm, volume 11.4 mL. Previously 5.1 x 2.2 x 2.1 cm, volume 12.3 mL. Parenchyma: The gland echotexture is homogeneous. Thyroid vascularity is normal. Isthmus: 0.4 cm in maximum AP dimension. Previously 0.3 cm. Estimated total number of nodules greater than or equal to 1 cm: 2. Preservationist nodules are described as follows: 1. Location: Right mid. Size: 0.45 x 0.25 x 0.42 cm, volume 0.03 mL. Previously: 0.40 x 0.30 x 0.30 cm, volume 0.02 mL. Nodule characteristics: Composition: Spongiform (0). Echogenicity: Anechoic (0). Shape: Not taller than wide (0). Margins: Smooth (0). Echogenic Foci: None (0). ACR TI-RADS total points: 0 Previous: 4 ACR TI-RADS category: 1 Previous: 4 Significant change in size (>/= 20% in 2 dimensions and minimal increase of 2 mm or 50% or greater increase in volume): Yes Change in features: Yes Change in ACR TI-RADS risk category: Yes 2. Location: Right superior. Size: 0.40 x 0.21 x 0.34 cm, volume 0.02 mL. Previously: Not seen on the previous study. Nodule characteristics: Composition: Cystic(0). ACR TI-RADS total points: 0 ACR TI-RADS category: 1 3. Location: Left mid. Size: 1.6 x 1.3 x 1.3 cm, volume 1.5 mL. Previously: 1.6 x 1.0 x 1.2 cm, volume 1.0 mL. Nodule characteristics: Composition: Mixed cystic and solid (1). Echogenicity: Hypoechoic (2). Shape: Not taller than wide (0). Margins: Smooth (0). Echogenic Foci: Punctate echogenic foci (3). ACR TI-RADS total points: 6 Previous: 6 ACR TI-RADS category: 4 Previous: 4 Significant change in size (>/= 20% in 2 dimensions and minimal increase of 2 mm or 50% or greater increase in volume): No Change in features: No Change in ACR TI-RADS risk category: No 4. Location: Left mid. Size: 1.0 x 0.56 x 0.73 cm, volume 0.21 mL. Previously: 1.0 x 0.80 x 0.90 cm, volume 0.40 mL. Nodule characteristics: Composition: Mixed cystic and solid (1). Echogenicity: Hypoechoic (2). Shape: Not taller than wide (0). Margins: Smooth (0). Echogenic Foci: None (0). ACR TI-RADS total points: 3 Previous: 3 ACR TI-RADS category: 3 Previous: 3 Significant change in size (>/= 20% in 2 dimensions and minimal increase of 2 mm or 50% or greater increase in volume): No Change in features: No Change in ACR TI-RADS risk category: No NODES: No lymphadenopathy is seen in the tissue surrounding the thyroid gland. US/US thyroid IMPRESSION: 1. Bilateral thyroid nodules are redemonstrated, as detailed. 2. There is a diffuse goiter. ACR TI-RADS RECOMMENDATION REFERENCE: Ultrasound-guided fine-needle aspiration, followup ultrasound, no further follow up. * TR1 (0 point) and TR 2 (2 points): No FNA or follow up * TR3 (3 points): FNA if more than or equal to 2.5 cm in maximum dimension, followup ultrasound in 1, 3 and 5 years if 1.5 to 2.4 cm in maximum dimension. * TR4 (4-6 points): FNA if more than or equal to 1.5 cm in maximum dimension, followup ultrasound in 1, 2, 3 and 5 years if 1 to 1.4 cm in maximum dimension. * TR5 (more than or equal to 7 points): FNA if more than or equal to 1 cm in maximum dimension, followup ultrasound every year for 5 years if 0.5 to 0.9 cm in maximum dimension. * TR3, TR4 or TR5 nodules that are below the size threshold for follow up receive no follow up.
== END 2021-12-16 14:25 | disposition home or self-care (01) ==
LOC: HO.HMGCX 14:24
PROVIDERS: Visit Provider Internal Medicine
DX: E04.2 Nontoxic multinodular goiter (principal)
CPT/HCPCS: 76536

== ENCOUNTER → 2022-01-31 07:13 | Outpatient (REF) | payer OTHER, SELFPAY ==
--- NOTE | 2022-01-31 07:18 | CA_ITS ---
Transthoracic Echocardiogram Patient (Last, First, Middle): Cookie Nielsen, Gender: Female Date of : 1965 Age: 56 Procedure Date: 01/31/2022 Procedure Type: Transthoracic Echocardiogram Location: OP Height: 160.02 cm Weight: 63.5 kg BSA: 1.66 m2 Heart Rate: 78 bpm BP: 125 / 90 mmHg Cable Television Program Director: HUGH Referring MD: Regina Paz MD Symptoms: R09.89 NARROWED PULSE PRESSURE Study Quality: Good ECG Rhythm: Sinus Conclusions: - The left ventricular systolic function is normal. The calculated ejection fraction is 62% by biplane method. - No obvious valvular pathology seen on this study. Findings Left Ventricle Normal left ventricular cavity size. There is normal left ventricular wall thickness. The left ventricular systolic function is normal. The calculated ejection fraction is 62% by biplane method. There is no evidence of regional wall motion abnormalities. Diastolic function is normal for age. Right Ventricle Normal right ventricular cavity size and systolic function. Atria Both atria are normal in size. Aortic Valve The aortic valve structure and function is likely normal. There is mild calcification of the aortic valve. There is no aortic valve stenosis. There is no aortic valve regurgitation. Mitral Valve The mitral valve appears normal. There is trace mitral valve regurgitation. There is no mitral valve stenosis. Pulmonic Valve The pulmonic valve is likely normal. Tricuspid Valve There is trace tricuspid valve regurgitation. Tricuspid regurgitation envelope is inadequate for calculation of right ventricular systolic pressure. Great Vessels The aortic annulus, sinuses of valsalva, and asc aorta are normal in size. Venous The inferior vena cava is normal in size and collapses greater than 50% with inspiration. Pericardium/Pleural There is no evidence of pericardial effusion. Prior Study Comparison No prior study available for comparison. Recommendations, Care & Conclusions No obvious valvular pathology seen on this study. Measurements 2D Linear Measurements IVSd: 0.83 0.6-0.9/0.6-1.0 cm LVIDd: 3.93 3.9-5.3/4.2-5.9 cm LVIDd Index: 2.37 2.4-3.2/2.2-3.1 cm/m2 LVIDs: 2.43 2.0-3.6 cm LVPWd: 0.77 0.7-1.1 cm LA Diam: 2.80 2.7-3.8/3.0-4.0 cm LAIDs Index: 1.69 1.5-2.3 cm/m2 LV Mass: 113.23 67-162/88-224 g LV Mass Index: 68.21 43-95/49-115 g/m2 LVOT Diam: 1.80 3.0+(-)1.3 cm 2D Systolic Function EF 4C: 65.60 >55% EF 2C: 62.50 >55% EF BiP: 61.80 >55% Mitral Valve MV Pk E: 0.64 MV PK A: 0.78 MV Decel Time: 231.00 E/A: 0.80 E'Lateral: 9.68 E'Medial: 8.70 E/E' Med: 7.40 E/E' Lat: 6.60 PHT: 68.00 MVA PHT: 3.24 Decel Dare: 2.78 Aortic Valve AoV Pk Alonso: 1.19 AoV Mn Alonso: 0.87 AoV VTI: 0.23 AoV Pk Grad: 6.00 Aov Mn Grad: 3.00 SANDRA Cont.VTI: 2.27 LVOT LVOT Pk Alonso: 1.03 LVOT Mn Alonso: 0.67 LVOT VTI: 0.21 LVOT Pk Grad: 4.00 LVOT Mn Grad: 2.00 LVOT Diam: 1.80 LVOT Area: 2.54 Diastolic Function MV Pk E: 0.64 MV Pk A: 0.78 E/A: 0.80 E'Medial: 8.70 E/E' Med: 7.40 E' Laterial: 9.68 E/E' Lat: 6.60 Right Ventricle TAPSE (mm): 22.00 TVS' Alonso: 13.70 Tricuspid Valve RA Press: 3.00 Great Vessels Aorta Sinus of Valsalva: 2.90 2.0-3.5 cm Ao Asc: 3.10 2.1-3.4 cm Pulmonary Valve PV Pk Alonso: 0.81 Peak PV Grad: 3.00 Updated in Other Vendor System with Status of Final Blayne Loya MD electronically signed on 01/31/2022 10:30:48 AM with status of Final
== END ==
LOC: HO.CARD 07:13
PROVIDERS: Visit Provider Internal Medicine
DX: R09.89 Other specified symptoms and signs involving the circulatory and respiratory systems (principal)
CPT/HCPCS: 93306

== ENCOUNTER 2022-04-24 09:17 | Outpatient (REF) | payer OTHER, SELFPAY ==
--- NOTE | ~2022-04-24 | XR_ITS ---
EXAMINATION: LEFT SHOULDER AND LEFT CLAVICLE CLINICAL INFORMATION: Pain. COMPARISON: None. TECHNIQUE: Two views left clavicle and 4 views left shoulder. FINDINGS: LEFT CLAVICLE: There is no visible fracture or bony abnormality. The AC joint and the sternoclavicular joint alignment is maintained normal. LEFT SHOULDER: The glenohumeral and AC joint space is maintained normal. No loose bodies, fracture or dislocation. In the posterior glenoid articular surface there is soft tissue calcification, question old sleeve avulsion fracture or calcification of posterior cartilage. XR/XR clavicle LT IMPRESSION: Unremarkable left clavicle. No acute fracture or dislocation. There is soft tissue calcification or osteophytosis posterior to glenoid rim, hypertrophic changes to old sleeve avulsion fracture or calcified cartilage. Recommend MRI for further evaluation if patient has persistent pain.
--- NOTE | ~2022-04-24 | XR_ITS ---
EXAMINATION: LEFT SHOULDER AND LEFT CLAVICLE CLINICAL INFORMATION: Pain. COMPARISON: None. TECHNIQUE: Two views left clavicle and 4 views left shoulder. FINDINGS: LEFT CLAVICLE: There is no visible fracture or bony abnormality. The AC joint and the sternoclavicular joint alignment is maintained normal. LEFT SHOULDER: The glenohumeral and AC joint space is maintained normal. No loose bodies, fracture or dislocation. In the posterior glenoid articular surface there is soft tissue calcification, question old sleeve avulsion fracture or calcification of posterior cartilage. XR/XR shoulder LT min 2V IMPRESSION: Unremarkable left clavicle. No acute fracture or dislocation. There is soft tissue calcification or osteophytosis posterior to glenoid rim, hypertrophic changes to old sleeve avulsion fracture or calcified cartilage. Recommend MRI for further evaluation if patient has persistent pain.
== END 2022-04-24 09:18 | disposition home or self-care (01) ==
LOC: HO.XRAY 09:17
PROVIDERS: PCP Internal Medicine; Visit Provider Internal Medicine Rheumatology
DX: M25.512 Pain in left shoulder (principal)
CPT/HCPCS: 73000; 73030

== ENCOUNTER → 2022-04-28 07:46 | Outpatient (REF) | payer OTHER, SELFPAY ==
--- NOTE | ~2022-04-28 | NM_ITS ---
Exercise Myocardial perfusion study Indication: Intermittent chest pain to evaluate for myocardial ischemia Technique: The patient was brought in for an exercise perfusion study on 04/28/2022. Patient performed exercise as per Jered protocol and was injected 25 mCi of sestamibi was given intravenously one target HR was achieved. Images were obtained using the SPECT gamma camera interlaced with the gating device. Images were obtained in supine position. Resting perfusion study was performed on 05/05/2022. Patient was administered 25 mCi of sestamibi intravenously at rest. Images were then obtained in supine position. Images obtained with and without CT attenuation. Total DLP 89 mGy-cm. Images were processed with the software and compared side to side in short axis, horizontal long axis and vertical long axis views. Findings: The stress perfusion study showed both attenuated as well as non attenuated corrected images show normal uptake of radiotracer in all segments of LV myocardium. The gated study shows normal LV systolic function with calculated LVEF of greater than 70%. LV cavity is normal in size. The gated study shows normal systolic wall thickening and contraction of all segments. There is no transient ischemic dilation. Resting study shows intense subdiaphragmatic uptake interfering with inferior wall uptake. 2 mildly reduced uptake in the apex on attenuated corrected images. Gating at rest reveals normal systolic wall motion with ejection fraction at 73%. The findings are consistent with normal myocardial perfusion. NM/NM clara perf SPECT rest & str Impression: 1. Normal myocardial perfusion 2. Gated LVEF is greater than 70% 3. Transient ischemic dilatation not present Stress EKG is negative for ischemia
--- NOTE | 2022-04-28 07:50 | CA_ITS ---
Acquisition Time: 2022-04-28 07:56:55 Total Exercise Time: 00:07:11 Test Indications: CP, HTN Medications: SEE CHART Protocol: DONNY Max HR: 153 BPM 94% of Pred: 162 BPM Max BP: 164/092 mmHG Max Work Load: 8.8 METS Exercise stress test with exercise 7 min 11 sec of Donny protocol, achieving 93% MPHR, 8.8 METs, without anginal symptoms, with isolated PVCs, with normotensive response to exercise, without EKG changes meeting crtieria for ischemia. Nuclear images pending. Test reviewed with Dr Cox. Referred By: Regina Paz Overread By: BERKLEY DAVISON
== END ==
LOC: HO.CARD 07:46
PROVIDERS: Absent Provider Internal Medicine Cardiovascular Disease; PCP Internal Medicine; Visit Provider Internal Medicine
DX: R07.9 Chest pain, unspecified (principal)
CPT/HCPCS: 78452; 93017; A9500

== ENCOUNTER 2022-05-07 09:06 | Emergency (ER) | payer OTHER, SELFPAY ==
--- NOTE | 2022-05-07 09:10 | ECG_ITS ---
Test Reason : CHEST PAIN Blood Pressure : / mmHG Vent. Rate : 093 BPM Atrial Rate : 093 BPM P-R Int : 138 ms QRS Dur : 086 ms QT Int : 344 ms P-R-T Axes : 035 037 048 degrees QTc Int : 427 ms Normal sinus rhythm Normal ECG No previous ECGs available Referred By: Generic ED Physician Electronically Signed By:AUDREY ROBERSON
[2022-05-07 09:20] VITALS: BP 138/72; PULSE 96; RESP 22; TEMP 36.8; O2SAT 95; BMI 24.7
[2022-05-07 09:49] LABS: MANUAL DIFF FLAG NO
[2022-05-07 09:57] LABS: Basophils Absolute Auto 0.1 X10*3/uL (0.0-0.2); Basophils Percent Auto 0.3 % (0-2); Eosinophils Absolute Auto 0.1 X10*3/uL (0.0-0.4); Eosinophils Percent Auto 0.7 % (0-4); Hematocrit 43.4 % (37.0-47.0); Imm Gran Abs Auto 0.04 X10*3/uL (0.00-0.03); Imm Gran Pct Auto 0.3 % (0.0-0.4); Lymphocytes Absolute Auto 1.1 X10*3/uL (1.2-4.9); Lymphocytes Percent Auto 7.6 % (20-40); Mean Corpuscular HGB Conc 34.6 g/dl (31.0-35.0); Mean Corpuscular Hemoglobin 30.6 pg (27.0-33.0); Mean Corpuscular Volume 88.6 fL (80.0-98.0); Mean Platelet Volume 9.7 fL (9.4-12.3); Monocytes Absolute Auto 0.8 X10*3/uL (0.1-1.2); Monocytes Percent Auto 5.2 % (2-11); Neutrophils Absolute Auto 12.8 x10*3/uL (2.0-8.3); Neutrophils Percent Auto 85.9 % (45-73); Platelet Count 275 X10*3/uL (160-400); Red Cell Distribution Width 13.4 % (11.0-16.0); White Blood Count 14.9 X10*3/uL (4.8-10.8)
--- NOTE | 2022-05-07 10:00 | PC.NURSE ---
patient a/ox4 . denisea . heart rate regular at 96 beats per minute . breathing even and unlabored , lungs clear throughout . skin warm pink and dry . abdomen soft and positive bowel sounds throughout . IV placed in right A.C labs obtained and sent . EKG done and read . 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 Patient c/o of chest pain for last two days that radiates down left arm also requesting and MRI from provider for a previous injury to shoulder arm she believes she fractured . provider is aware . patient aware of plan of care .
[2022-05-07 10:12] LABS: Alanine Aminotransferase 19 U/L (0-31); Albumin Level 4.5 g/dL (3.5-5.0); Alkaline Phosphatase 78 U/L (39-117); Anion Gap 13 (12-20); Aspartate Amino Transferase 19 U/L (5-31); Blood Urea Nitrogen 12 mg/dL (9-16); Calcium 9.2 mg/dL (8.4-10.2); Carbon Dioxide 25 mmol/L (22-29); Chloride 108 mmol/L (96-108); Creatinine Clr Calc Pharmacy 70.5; Estimated Glomerular Filt Rate > 60; Glucose Random 102 mg/dL (60-115); Potassium 4.1 mmol/L (3.3-5.1); Sodium 142 mmol/L (135-145); Total Protein 7.3 g/dL (6.5-8.0)
[2022-05-07 10:16] LABS: Troponin-I High Sensitivity < 3.5 ng/L (<3.5-17.0)
[2022-05-07 10:22] LABS: Bilirubin Total 0.5 mg/dL (0.0-1.0)
[2022-05-07] MEDS: Ketorolac Tromethamine 15 MG/ML VIAL IVPUSH (10:32)
[2022-05-07] MEDS: ondansetron HCL 4 MG/2 ML VIAL IVPUSH (10:33)
--- NOTE | 2022-05-07 10:46 | PC.NURSE ---
Patient medicated with 15mg of toradal IVP for 8 out of 10 pain in chest left shoulder pain and 4 mg of zofran IVP for [place] . patient aware of plan of care
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
[2022-05-07 11:44] VITALS: BP 115/63; PULSE 91; RESP 18; TEMP 36.6; O2SAT 98
--- NOTE | 2022-05-07 11:48 | PC.NURSE ---
Patient a/ox4 . VSS . went over discharge instructions as ordered by provider . patient to return to Ed if symptoms worsen. No questions at this time .
== END 2022-05-07 11:50 | disposition home or self-care (01) ==
PROVIDERS: Nurse Practitioner Family; Emergency Provider Emergency Medicine Emergency Medical Services; PCP Internal Medicine
DX: R07.89 Other chest pain (principal); M25.512 Pain in left shoulder; Z79.899 Other long term (current) drug therapy
CPT/HCPCS: 36415; 80053; 84484; 85025; 93005; 96374; 96375; 99284; 99285; J1885; J2405

== ENCOUNTER 2022-05-09 18:50 | Outpatient (REF) | payer OTHER, SELFPAY ==
--- NOTE | ~2022-05-09 | MR_ITS ---
EXAMINATION: MRI LEFT SHOULDER WITHOUT CONTRAST CLINICAL INFORMATION: M25.512 - Pain in left shoulder COMPARISON: Radiograph dated 04/16/2022 TECHNIQUE: MR images of the shoulder were obtained on a 1.5 Ade high-field strength scanner without intravenous contrast material. FINDINGS: ROTATOR CUFF: Intact. No muscle atrophy or fatty infiltration. BICEPS: Normal CORACOACROMIAL ARCH: The undersurface of the acromion is flat with small anterolateral subacromial spurs. Mild acromioclavicular osteoarthritis. Trace subacromial subdeltoid bursal fluid. Subacromial space measures 6 mm. Coracohumeral distance measures 8 mm. LABRUM/CAPSULE: A linear undersurface tear of the superior labrum propagates from the anterosuperior 2 o'clock position through the superior labrum to the posterosuperior 10 o'clock position no associated para labral cysts. Labrum is otherwise intact. Joint capsule is normal. GLENOHUMERAL JOINT/MARROW: Articular cartilage is well preserved. Bone marrow signal is normal. No joint effusion. MR/MR shoulder LT wo con IMPRESSION: 1. Type II SLAP tear. 2. Mild acromioclavicular osteoarthritis. 3. Small anterolateral subacromial spurs. 4. Trace subacromial subdeltoid bursitis.
== END 2022-05-09 18:51 | disposition home or self-care (01) ==
LOC: HO.MRI 18:50
PROVIDERS: Visit Provider Internal Medicine Rheumatology
DX: M25.512 Pain in left shoulder (principal)
CPT/HCPCS: 73221

== ENCOUNTER → 2022-05-19 09:17 | Outpatient (BNVA) | payer OTHER, SELFPAY | PROVIDERS: PCP Internal Medicine; Visit Provider Internal Medicine Cardiovascular Disease | DX: R07.89 Other chest pain (principal) ==

== ENCOUNTER → 2022-05-26 09:53 | Outpatient (BNVA) | payer OTHER, SELFPAY | PROVIDERS: Visit Provider Orthopaedic Surgery | DX: S43.432A Superior glenoid labrum lesion of left shoulder, initial encounter (principal) ==

== ENCOUNTER 2022-06-07 05:57 | Day surgery (SDC) | payer OTHER, SELFPAY ==
[2022-06-02 15:52] VITALS: BMI 26.2
--- NOTE | 2022-06-06 08:30 | P.CONAN_ITS ---
Documented by User: Danyell Duran NP 06/06/22 08:36 HPI - Anesthesia Eval Consult details Narrative: 56yo F for Left Shoulder Arthroscopy with biceps tenotomy Hx hypotension postop PMFSH Active Problems Active Problems: All Active Problems (Updated 06/02/22 @ 15:46 by Malia Novak, RN) Abdominal bloating (Acute) Colon cancer screening (Acute) Hyperlipidemia (Acute) Trochanteric bursitis (Acute) Polyarthralgia (Acute) Superior labrum uyknjjez-ir-qsyyuuaxp (SLAP) tear of left shoulder (Acute) Hx of migraine headaches (Acute) TMJ syndrome (Acute) Multinodular thyroid (Acute) Past Medical History Medical History Cervical radiculopathy Elevated cholesterol Fusion of spine, cervical region History of anesthesia complications Hx of chest pain Hx of gastritis Hx of migraine headaches Multinodular thyroid Osteoarthritis TMJ syndrome Family History Family History Mother Diabetes Uterine cancer Hypertension Father Diabetes Hypertension Stroke Family history of problems with anesthesia: No Surgical History Surgical History H/O colonoscopy History of esophagogastroduodenoscopy (EGD) History of spinal fusion Hx of cholecystectomy Hx of dilation and curettage Hx of tonsillectomy Hx of tubal ligation S/P thyroid biopsy History of Problems with Anesthesia: No Social History Social History Household Members: Spouse Are you a primary director of career resources to a significant other at home: No Do you presently have visiting nurse or other home services: No Alcohol intake: former Patient Tobacco Use Status: Former Tobacco user Quit Date: 1990 Tobacco use type: Cigarette Use of substances other than those prescribed or required for medical reasons: No Are you DNR?: No Advance Directives: No Advance Directives Information Provided: Yes Advance Directives on File: No service: No Current occupational status: employed and unemployed Meds Allergies Allergy/AdvReac Type Severity Reaction Status Date / Time atorvastatin Allergy Mild muscle pain Verified 06/02/22 15:40 blue dye Allergy Mild Unknown Verified 06/02/22 15:40 iodine Allergy Mild Itching Verified 06/02/22 15:40 red dye Allergy Mild Unknown Verified 06/02/22 15:40 tree and shrub pollen Allergy Mild Nasal Verified 06/02/22 15:40 congestion erythromycin base Allergy Nausea and Verified 06/02/22 15:40 Vomiting stevioside [From Stevia] AdvReac Abdominal Verified 06/07/22 06:07 Pain Home Medications Medication Instructions Recorded Confirmed Last Taken Type rosuvastatin 10 mg tablet 10 mg PO BEDTIME 09/17/20 06/02/22 Unknown History lfppmahtcx-uqaatlzgvlvaa-qbilwvji 1 cap PO DAILY PRN Migraine 11/11/20 06/02/22 11/26/20 07:00 History 50 mg-300 mg-40 mg capsule Headache cyclosporine 0.05 % eye drops in a 1 drp ophthalmic (eye) BID 11/11/20 06/02/22 Unknown History dropperette erenumab-aooe 70 mg/mL 1 syringe subcut QMONTH 11/26/20 06/02/22 Unknown History subcutaneous auto-injector (Aimovig Autoinjector) acyclovir 400 mg tablet 400 mg PO BID 12/17/20 06/02/22 Unknown History cyclobenzaprine 10 mg tablet 10 mg PO 05/19/22 05/19/22 Unknown History ondansetron HCl 4 mg tablet 4 mg PO DAILY 05/19/22 06/02/22 06/07/22 04:00 History zolmitriptan 5 mg tablet 5 mg PO 05/19/22 05/19/22 Unknown History Exam Exam Date and Time: June 06, 2022 0830 Height,Weight and Vital Signs: Height 5 ft 3 in Weight 67.132 kg Pertinent Lab Results Pertinent Lab Results: Laboratory Tests 05/07/22 05/07/22 09:45 09:45 WBC 14.9 H Hgb 15.0 Hct 43.4 Plt Count 275 Sodium 142 Potassium 4.1 Chloride 108 Carbon Dioxide 25 BUN 12 Creatinine 0.78 Narrative Narrative: EKG 04/2022 Vent. Rate : 093 BPM ? ? Atrial Rate : 093 BPM ?? P-R Int : 138 ms? QRS Dur : 086 ms ? ? QT Int : 344 ms ? ? ? P-R-T Axes : 035 037 048 degrees ?? QTc Int : 427 ms ? Normal sinus rhythm Normal ECG No previous ECGs available NM clara perf SPECT rest & str 04/2022 Impression: ? 1.? Normal myocardial perfusion 2.? Gated LVEF is greater than 70% 3. Transient ischemic dilatation not present ? Stress EKG is negative for ischemia ECHO 01/2022 Conclusions: - The left ventricular systolic function is normal.? The ? calculated ejection fraction is 62% by biplane method. ? - No obvious valvular pathology seen on this study.? Assessment and Plan Assessment Anesthesia Assessment: Chart Reviewed Final Anesthetic Review Family History of Problems with Anesthesia: No History of Problems with Anesthesia: No Documented by User: Kylah Balderas MD 06/07/22 08:20 PMFSH Past Medical History Medical History Cervical radiculopathy Elevated cholesterol Fusion of spine, cervical region History of anesthesia complications Hx of chest pain Hx of gastritis Hx of migraine headaches Multinodular thyroid Osteoarthritis TMJ syndrome Family History Family History Mother Diabetes Uterine cancer Hypertension Father Diabetes Hypertension Stroke Surgical History Surgical History H/O colonoscopy History of esophagogastroduodenoscopy (EGD) History of spinal fusion Hx of cholecystectomy Hx of dilation and curettage Hx of tonsillectomy Hx of tubal ligation S/P thyroid biopsy Social History Social History Household Members: Spouse Are you a primary director of career resources to a significant other at home: No Do you presently have visiting nurse or other home services: No Alcohol intake: former Patient Tobacco Use Status: Former Tobacco user Quit Date: 1990 Tobacco use type: Cigarette Use of substances other than those prescribed or required for medical reasons: No Are you DNR?: No Advance Directives: No Advance Directives Information Provided: Yes Advance Directives on File: No service: No Current occupational status: employed and unemployed Meds Allergies Allergy/AdvReac Type Severity Reaction Status Date / Time atorvastatin Allergy Mild muscle pain Verified 06/02/22 15:40 blue dye Allergy Mild Unknown Verified 06/02/22 15:40 iodine Allergy Mild Itching Verified 06/02/22 15:40 red dye Allergy Mild Unknown Verified 06/02/22 15:40 tree and shrub pollen Allergy Mild Nasal Verified 06/02/22 15:40 congestion erythromycin base Allergy Nausea and Verified 06/02/22 15:40 Vomiting stevioside [From Stevia] AdvReac Abdominal Verified 06/07/22 06:07 Pain Home Medications Medication Instructions Recorded Confirmed Last Taken Type rosuvastatin 10 mg tablet 10 mg PO BEDTIME 09/17/20 06/02/22 Unknown History lkmsizuxvh-ylskvpfkzkypm-qbihrtva 1 cap PO DAILY PRN Migraine 11/11/20 06/02/22 11/26/20 07:00 History 50 mg-300 mg-40 mg capsule Headache cyclosporine 0.05 % eye drops in a 1 drp ophthalmic (eye) BID 11/11/20 06/02/22 Unknown History dropperette erenumab-aooe 70 mg/mL 1 syringe subcut QMONTH 11/26/20 06/02/22 Unknown History subcutaneous auto-injector (Aimovig Autoinjector) acyclovir 400 mg tablet 400 mg PO BID 12/17/20 06/02/22 Unknown History cyclobenzaprine 10 mg tablet 10 mg PO 05/19/22 05/19/22 Unknown History ondansetron HCl 4 mg tablet 4 mg PO DAILY 05/19/22 06/02/22 06/07/22 04:00 History zolmitriptan 5 mg tablet 5 mg PO 05/19/22 05/19/22 Unknown History Exam Airway Mallampati Class: II TM Dist: >3cm Loose/Missing/Broken Teeth: No Heart: rrr Lungs: cta Assessment and Plan Assessment Anesthesia Assessment: Anesthesia Plan Discussed Final Anesthetic Review NPO: Yes ASA Class: II Final Preanesthetic Review: No Changes in Pt Med Stat, Meds/Allgs Chart Reviewed, Consent Obtained/Reviewed and Anes Risks/Benef Reviewed Patient Risk: Low Procedure Risk: Low Anesthetic Plan Anesthetic Plan: GA and Regional Block (Left interscalene) Disposition: Standard PACU
[2022-06-07] VITALS (13 sets, daily range): BP systolic 122–170; BP diastolic 79–113; PULSE 62–99; RESP 15–19; TEMP 36.6–36.7; O2SAT 93–98
[2022-06-07] MEDS: Lactated Ringers 1,000 ML 100 ML IVCONT (06:32)
--- NOTE | 2022-06-07 07:52 | MHC.SHP ---
Pre-Procedural Eval Section A Date of Service: 06/07/22 The patient is an INPATIENT: No Changes since office visit: No Cold of Flu in the past 2 weeks, No New Medical Problems, No Changes in Medication and No Patient answered all questions The History & Physical has been completed within 30 days and I have reviewed it.: Yes Section B Chief Complaint: Superior glenoid labrum lesion of left shoulder, i Allergies: Allergies Allergy/AdvReac Type Severity Reaction Status Date / Time atorvastatin Allergy Mild muscle pain Verified 06/02/22 15:40 blue dye Allergy Mild Unknown Verified 06/02/22 15:40 iodine Allergy Mild Itching Verified 06/02/22 15:40 red dye Allergy Mild Unknown Verified 06/02/22 15:40 tree and shrub pollen Allergy Mild Nasal Verified 06/02/22 15:40 congestion erythromycin base Allergy Nausea and Verified 06/02/22 15:40 Vomiting stevioside [From Stevia] AdvReac Abdominal Verified 06/07/22 06:07 Pain Plan I have reviewed the history and physical and performed a pertinent physical examination on my patient. No changes have occurred unless specified. Time Spent With Patient Time: Total time managing care of this patient today ____ minutes.
--- NOTE | 2022-06-07 08:46 | P.BOP_ITS ---
Brief Operative Note Date of Service: 06/07/22 Pre-op diagnosis: left shoulder SLAP tear Post-op diagnosis: same Procedure: Left shoulder biceps tenotomy and SAD Implants: none Surgeon: Kal Zepeda MD Anesthesia: GETA Was an Church History Professor used for this Procedure?: Yes [employer] History Professor: Nickie Dowling Estimated blood loss (mL): 10 IV fluids (mL): 800 Pathology: none sent Condition: stable Disposition: PACU
--- NOTE | 2022-06-07 08:50 | P.OP_ITS ---
Operative Note Operative Note Date of Service: 06/07/22 Narrative: Date of Service: 06/07/22 Pre-op diagnosis: left shoulder SLAP tear Post-op diagnosis: same Procedure: Left shoulder biceps tenotomy and SAD Implants: none Surgeon: Kal Zepeda MD Anesthesia: GETA Was an Floor Tiling Professional used for this Procedure?: Yes Floor Tiling Professional: Nickie Dowling Estimated blood loss (mL): 10 IV fluids (mL): 800 Pathology: none sent Condition: stable Disposition: PACU Procedure in detail: Patient was brought to the operating room and placed the the beach chair position. All bony prominences were well padded and the limb was prepped and draped in standard sterile fashion. A time out was called to identify proper site, proper procedure and proper surgeon. IV antibiotics per weight were administered. I began by making a posterolateral stab incision with a 15 blade. A blunt trochar was placed into the glenohumeral joint and I insufflated the joint with saline and a 30 degree arthroscope was placed. I established an outside- in anterior portal just distal to the biceps tendon. I then began my inspection of the glenohumeral joint. There was a superior labral tear at the biceps junction. The cartilage surfaces were intact. Ttere was no undersurface RTC tear. The subcapularis was intact with mild superior insertional fraying. I debrided the frayed labrum and performed a biceps tenotomy. I then removed the trochar and entered the subacromial space. A direct lateral portal was then established and I performed a bursectomy. The cuff was then examined. There was no tearing. THere was a small subacromial spur which was removed with a dominik. A 5 mm subacromial decompression of the anterolateral acromion was performed. Once I was satisfied with decompression, final images were captured and I removed all instrumentation. Portals were closed with nylon. Patient was placed in an abduction sling, extubated and brought to the recovery room in stable condition. There were no known complications.
[2022-06-07] MEDS: ondansetron HCL 4 MG/2 ML VIAL IVPUSH (09:05)
== END 2022-06-07 12:25 | disposition home or self-care (01) ==
PROVIDERS: PCP Internal Medicine; Visit Provider Orthopaedic Surgery
PROC: (CPT 29805; principal; 2022-06-07 07:30)
DX: S43.432A Superior glenoid labrum lesion of left shoulder, initial encounter (principal); X50.1XXA Overexertion from prolonged static or awkward postures, initial encounter; X50.9XXA Other and unspecified overexertion or strenuous movements or postures, initial encounter; Y93.89 Activity, other specified; Y92.89 Other specified places as the place of occurrence of the external cause; Y99.8 Other external cause status; E78.00 Pure hypercholesterolemia, unspecified; Z79.899 Other long term (current) drug therapy; Z88.8 Allergy status to other drugs, medicaments and biological substances; Z91.041 Radiographic dye allergy status
CPT/HCPCS: 29822; J0171; J0690; J1100; J1885; J2250; J2405; J2550; J2795; J3010

== ENCOUNTER → 2022-06-12 09:39 | Outpatient (BNVA) | payer OTHER, SELFPAY | PROVIDERS: PCP Internal Medicine; Visit Provider Physician Assistant | DX: S43.432A Superior glenoid labrum lesion of left shoulder, initial encounter (principal) ==

== ENCOUNTER → 2022-06-27 10:41 | Outpatient (BNVA) | payer OTHER, SELFPAY | PROVIDERS: PCP Internal Medicine; Visit Provider Internal Medicine Cardiovascular Disease | DX: Z13.89 Encounter for screening for other disorder (principal) ==

== ENCOUNTER → 2022-06-30 14:05 | Outpatient (BNVA) | payer OTHER, SELFPAY | PROVIDERS: PCP Internal Medicine; Visit Provider Nurse Practitioner | DX: Z13.89 Encounter for screening for other disorder (principal) ==

== ENCOUNTER → 2022-07-03 11:46 | Outpatient (BNVA) | payer OTHER, SELFPAY | PROVIDERS: PCP Internal Medicine; Visit Provider Internal Medicine Rheumatology | DX: Z13.89 Encounter for screening for other disorder (principal) ==

== ENCOUNTER → 2022-07-07 11:28 | Outpatient (BNVA) | payer OTHER, SELFPAY | PROVIDERS: PCP Internal Medicine; Visit Provider Physician Assistant | DX: Z13.89 Encounter for screening for other disorder (principal) ==

== ENCOUNTER 2022-08-22 07:58 | Outpatient (REF) | payer OTHER, SELFPAY ==
[2022-08-22 12:28] LABS: Cholesterol 207 mg/dL; HDL Cholesterol 42 mg/dL; LDL Cholesterol Calculated 136 mg/dl; Triglycerides 145 mg/dL
[2022-08-22 12:52] LABS: Ferritin 43 ng/mL (10-250); Vitamin D 25-OH Total 20.9 ng/mL (>30)
[2022-08-24 14:59] LABS: CRP High Sensitivity 5.7 mg/L
== END 2022-08-22 07:59 | disposition home or self-care (01) ==
LOC: HO.WFDLDS 07:58
PROVIDERS: PCP Physician Assistant Medical; Visit Provider Internal Medicine Cardiovascular Disease
DX: I25.10 Atherosclerotic heart disease of native coronary artery without angina pectoris (principal); E78.5 Hyperlipidemia, unspecified; L65.9 Nonscarring hair loss, unspecified
CPT/HCPCS: 36415; 80061; 82306; 82728; 86141

== ENCOUNTER → 2022-08-24 11:11 | Outpatient (BNVA) | payer OTHER, SELFPAY | PROVIDERS: PCP Physician Assistant Medical; Visit Provider Internal Medicine Rheumatology | DX: Z13.89 Encounter for screening for other disorder (principal) ==

== ENCOUNTER 2022-09-24 05:18 | Inpatient (IN) | payer OTHER, SELFPAY ==
[2022-09-24] VITALS (7 sets, daily range): BP systolic 98–124; BP diastolic 56–85; PULSE 77–112; RESP 14–20; TEMP 36.7–37.3; O2SAT 91–96; BMI 21.9; BMI 25.4
--- NOTE | 2022-09-24 | ECG_ITS ---
Test Reason : CHEST PAIN Blood Pressure : / mmHG Vent. Rate : 116 BPM Atrial Rate : 116 BPM P-R Int : 122 ms QRS Dur : 068 ms QT Int : 292 ms P-R-T Axes : 032 064 046 degrees QTc Int : 405 ms Sinus tachycardia Otherwise normal ECG When compared with ECG of 07-MAY-2022 09:16, Nonspecific T wave abnormality now evident in Inferior leads Nonspecific T wave abnormality now evident in Anterior leads Referred By: Generic ED Physician Electronically Signed By:Wesley Cox
--- NOTE | ~2022-09-24 | XR_ITS ---
EXAMINATION: XR CHEST CLINICAL INFORMATION: Chest pain after fall COMPARISON: None available. TECHNIQUE: 2 views of the chest were obtained. FINDINGS: Cardiac silhouette is normal in size. The lungs are well aerated. Subtle linear opacity left lung base is most suggestive of atelectasis. There is no lobar consolidation. No pleural effusion or pneumothorax. No gross osseous abnormality. XR/XR chest 2V IMPRESSION: Suspected left basilar atelectasis.
--- NOTE | ~2022-09-24 | CT_ITS ---
EXAMINATION: CT ABDOMEN AND PELVIS WITHOUT CONTRAST, WITH ORAL CONTRAST. ENTEROGRAPHY CLINICAL INFORMATION: Abnormal small bowel appearance on CT from 09/24/2022. COMPARISON: CT abdomen/pelvis 09/24/2022. TECHNIQUE: Multidetector volumetric imaging was performed from the superior aspect of the liver through the pubic symphysis. Sagittal and coronal reformatted images were obtained on the technologist's workstation. No IV contrast was administered. The patient ingested 1500 mL Breeza oral contrast. This CT examination was performed using dose optimization techniques as appropriate, variously including the following: *Automated exposure control *Adjustment of mA and/or kV according to patient size (this includes techniques or standardized protocols for targeted exams where dose is matched to indication/reason for exam; i.e. extremities or head) *Use of iterative reconstruction technique DLP: 379 mGy-cm FINDINGS: STOMACH: No significant wall thickening. SMALL BOWEL: The duodenum and jejunum are underdistended, limiting assessment of wall thickening. There is adequate luminal distention of the ileum without evidence of significant wall thickening or associated inflammatory changes. COLON: Evaluation of wall thickening is limited as there are scattered regions of luminal underdistention. No significant pericolonic inflammatory changes. Normal appendix. LUNG BASES: Stable small bilateral pleural effusions. No focal consolidation. LIVER, GALLBLADDER, AND BILIARY TREE: Multiple liver cysts redemonstrated as well as a few additional too small to characterize hypodensities, for instance in the right hepatic lobe (7:18 and 7:27). Focal fatty infiltration adjacent to the fissure of the falciform ligament (7:29). The liver is normal in size, shape and attenuation. Cholecystectomy. No biliary ductal dilatation. PANCREAS: Limited non-contrast examination, unremarkable. SPLEEN: Limited non-contrast examination, unremarkable. ADRENAL GLANDS: No adrenal mass. KIDNEYS AND URETERS: No nephrolithiasis or hydronephrosis. BLADDER: Unremarkable. ABDOMINAL WALL: No significant hernia is appreciated. LYMPH NODES: No lymphadenopathy. VASCULAR: Limited non-contrast examination. Abdominal aorta is normal in caliber. PELVIC VISCERA: Scattered calcifications in the uterine myometrium could be vascular or related with degenerative fibroids. Redemonstration of an elliptical shaped fluid filled attenuating structure in the posterior right hemipelvis (7:72) measuring 2.7 x 2 cm, extending along the expected nerve roots exiting from a sacral neural foramen. OSSEOUS STRUCTURES: No acute or aggressive appearing osseous abnormalities. CT/CT abdomen pelvis wo IV con IMPRESSION: Evaluation of active inflammatory bowel disease and related complications is limited in the absence of IV contrast and secondary to luminal underdistention of the majority of the jejunum. If clinically deemed appropriate, a repeat examination with an MR enterography utilizing IV contrast is recommended. No significant wall thickening or associated inflammatory changes within the stomach and distal small bowel. No significant pericolonic inflammatory changes. Hepatic cyst with several additional too small to characterize hypodensities, that are statistically in favor to represent simple cyst. However, definite characterization could be obtained with an MRI. 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
--- NOTE | ~2022-09-24 | CT_ITS ---
EXAMINATION: CT CHEST, ABDOMEN AND PELVIS without contrast CLINICAL INFORMATION: Reason for Exam abdominal pain COMPARISON: None TECHNIQUE: Multidetector volumetric CT imaging of the chest abdomen and pelvis obtained Axial MIP volume rendering provided. Sagittal and coronal reformatted images were obtained. This CT examination was performed using dose optimization techniques as appropriate, variously including the following: *Automated exposure control *Adjustment of mA and/or kV according to patient size (this includes techniques or standardized protocols for targeted exams where dose is matched to indication/reason for exam; i.e. extremities or head) *Use of iterative reconstruction technique CONTRAST: , Noncontrast study. Reformatted coronal and sagittal imaging was performed. 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 LUNGS: Bilateral small pleural effusion, subsegmental atelectasis left lingula base, mild compression atelectasis at both right and left lower lobe posteriorly. 4 mm nodule right lower lobe image 240 series 5. AIRWAYS: Trachea and bronchi are normal. PLEURA: No pleural effusion or pneumothorax. MEDIASTINUM AND ARELIS: The visualized thyroid gland is unremarkable. No mediastinal, hilar or axillary lymphadenopathy. There is no mediastinal mass. THORACIC AORTA: Thoracic aorta is normal in size. CHEST WALL, LOWER NECK, SURROUNDING SOFT TISSUES: Normal HEART AND PERICARDIUM: There is moderate size pericardial effusion roughly up to 1.5 cm in thickness. No significant coronary calcifications. HEPATOBILIARY: There is a cyst in the right lobe of the liver 1.4 x 0.9 cm. There is a cyst in the left lobe of the liver 1.4 x 1.7 cm segment 4, 2 other cysts in the segment 6 of the liver 1.7 cm and 1.4 cm. Evaluation of the cyst in the liver are limited due to lack of contrast. GALLBLADDER: Gallbladder has been removed. SPLEEN: Spleen is normal in size. PANCREAS: Small atrophic pancreas, no pancreatic mass. GI TRACT: Mildly dilated segments of small bowel with intermittent segment of mild wall thickening, without causing high grade obstruction, could be infection or inflammatory ileitis. No CT evidence of appendicitis. ADRENALS: No adrenal nodules. KIDNEYS/URETERS: There is a 2 mm nonobstructing stone in the right kidney. Kidneys otherwise normal in size and texture. No hydronephrosis. Perinephric fat are clear.. Evaluation is limited due to lack of oral and IV contrast and crowding of bowel loops. PELVIC ORGANS/BLADDER: There is an elliptical shape fluid-filled structure posterior right wall of the pelvis 2.8 x 1.8 cm, it extends along the expected nerve roots exiting from sacrum neural foramen raising the possibility of nerve sheath cyst. This could be evaluated further with follow-up MRI lumbar spine. PERITONEUM: No free air or fluid. LYMPH NODES: no retroperitoneal or mesenteric lymphadenopathy. VASCULAR:Abdominal aorta normal in size, no aneurysm found. BONES, ABDOMINAL WALL AND SOFT TISSUES: Age-appropriate changes of the spine and skeletal system, no destructive osteolytic or osteosclerotic bone lesion found CT/CT chest wo IV con IMPRESSION: * Circumferential moderate size pericardial effusion. * Mildly dilated segments of small bowel with intermittent segments of mild wall thickening, without high-grade obstruction, pattern might be due to infection or inflammatory ileitis and/or mild ileus. Evaluation is limited due to lack of oral and IV contrast and crowding of bowel loops. If patient remain symptomatic, consider correlation with follow-up upper GI small bowel follow-through.. * Bilateral small pleural effusions, subsegmental atelectasis at both right and left lower lobe posteriorly. * Liver cysts. * Atrophic pancreas. * 2 mm nonobstructing stone in the right kidney. * Fluid-filled structure posterior right wall of the pelvis 2.8 x 1.8 cm, it extends along the expected nerve roots from the sacrum raising the possibility of nerve sheath cyst. This could be evaluated further with follow-up MRI lumbar spine. * 4 mm nodule right lower lobe. Various management parameters for solitary pulmonary nodules are in the literature. According to the UPDATED 2017 Fleischner Society recommendations, the advised follow-up imaging for solid nodules < 6 mm is: LOW RISK PATIENT: No routine follow-up. HIGH RISK PATIENT: Optional CT at 12 months. Reference: Guidelines for Management of Incidental Pulmonary Nodules Detected on CT Images: From the Fleischner Society 2017.
[2022-09-24 06:26] LABS: Hematocrit 43.2 % (37.0-47.0); Hemoglobin 15.1 g/dl (12.0-16.0); Mean Corpuscular Hemoglobin 30.8 pg (27.0-33.0); Mean Platelet Volume 10.6 fL (9.4-12.3); Platelet Count 323 X10*3/uL (160-400); Red Blood Count 4.91 X10*6/uL (4.20-5.50); Red Cell Distribution Width 12.7 % (11.0-16.0)
--- NOTE | 2022-09-24 06:42 | ED_ITS ---
HPI - General Adult General Chief complaint: General Medical Stated complaint: dehydration Time Seen by Provider: 09/24/22 06:35 Source: patient Mode of arrival: ambulatory Limitations: no limitations History of Present Illness HPI narrative: Patient is a 57 year old assigned female at with a history of polyart hralgia presenting to the emergency department today with abdominal pain and intermittent chest pain. Patient states that over the last 3 days she has had abdominal pain and intermittent chest pain. Patient states that currently, her chest pain is gone. Patient states that she has had nausea and vomiting. Patient denies any dizziness, lightheadedness, fever, chills, blurry vision, double vision, loss of vision, difficulty breathing, shortness of breath, back pain, night sweats, pain with urination, increased urinary frequency, increased urinary urgency, blood in her urine or stool, syncope or a near syncopal episode, recent trauma or falls, bowel incontinence, bladder incontinence, bowel retention, bladder retention, or any other complaints at this time. Onset (ago): day(s) (3) Location: abdomen Pain Consistency: constant Relieving factors: none Exacerbating factors: none Associated symptoms: nausea/vomiting Treatments prior to arrival: none Related Data Home Medications Medication Instructions Recorded Confirmed cyclosporine 0.05 % eye drops in a 1 drp ophthalmic (eye) BID 11/11/20 09/24/22 dropperette erenumab-aooe 70 mg/mL 1 syringe subcut QMONTH 11/26/20 09/24/22 subcutaneous auto-injector (Aimovig Autoinjector) acyclovir 400 mg tablet 400 mg PO BID PRN Cold Sores 06/27/22 09/24/22 cyclobenzaprine 10 mg tablet 10 mg PO DAILY PRN Spasms 06/27/22 09/24/22 ondansetron HCl 4 mg tablet 4 mg PO DAILY PRN Nausea 06/27/22 09/24/22 zolmitriptan 5 mg tablet 5 mg PO DAILY PRN Migraine Headache 06/27/22 09/24/22 xkzqmonhfi-[id number]-rvocylfi 1 cap PO Q8H PRN MIGRAINES 08/24/22 09/24/22 50 mg-325 mg-40 mg capsule dicyclomine 20 mg tablet 20 mg PO TID PRN SPASMS 09/24/22 09/24/22 metoclopramide HCl 10 mg tablet 10 mg PO TIDAC PRN Spasms 09/24/22 09/24/22 (Reglan) zolmitriptan 5 mg nasal spray 1 spray intranasal DAILY PRN 09/24/22 09/24/22 (Zomig) Migraine Headache Previous Rx's Medication Instructions Recorded rosuvastatin 10 mg tablet 10 mg PO DAILY #90 tabs 08/28/22 Allergies Allergy/AdvReac Type Severity Reaction Status Date / Time atorvastatin Allergy Mild muscle pain Verified 08/24/22 11:20 blue dye Allergy Mild Unknown Verified 08/24/22 11:20 iodine Allergy Mild Itching Verified 08/24/22 11:20 red dye Allergy Mild Unknown Verified 08/24/22 11:20 tree and shrub pollen Allergy Mild Nasal Verified 08/24/22 11:20 congestion erythromycin base Allergy Nausea and Verified 08/24/22 11:20 Vomiting stevioside [From Stevia] AdvReac Abdominal Verified 08/24/22 11:20 Pain Review of Systems Constitutional: Constitutional: Reports no additional constitutional complaints, Denies chills, Denies fever(s) and Denies night sweats Eyes: Eyes: Reports no additional eye complaints, Denies blurry vision, Denies change in vision, Denies diplopia, Denies eye discharge, Denies loss of vision and Denies eye pain ENT: Denies dizziness Cardiovascular: Cardiovascular: Reports no additional cardiovascular complaints, Reports chest pain (intermittently), Denies lightheadedness, Denies Loss of Consciousness and Denies dyspnea Respiratory: Respiratory: Reports no additional respiratory complaints and Denies dyspnea Gastrointestinal: Gastrointestinal: Reports no additional gastrointestinal complaints, Reports abdominal pain, Denies melena, Denies hematochezia, Denies change in bowel habits, Denies change in stool character, Reports nausea and Reports vomiting Genitourinary: Genitourinary: Denies hematuria, Denies urinary frequency, Denies dysuria, Denies urinary incontinence, Denies urinary hesitancy and Denies urinary urgency Musculoskeletal: Musculoskeletal: Reports no additional musculoskeletal complaints, Denies numbness and Denies tingling Neurologic: Denies dizziness, Denies loss of vision, Denies numbness and Denies tingling Psychiatric: Psychiatric: Reports no additional psychiatric complaints Endocrine: Endocrine: Reports no additional endocrine complaints Hematologic/Lymphatic: Hematologic/Lymphatic: Reports no additional hemato logic/lymphatic complaints Allergic/Immunologic: Allergic/Immunologic: Reports no additional allergic/immunologic complaints PMFSH Past Medical History Attestation statement: The following information was validated with the patient. Source: old records reviewed and nursing notes reviewed Medical History Cervical radiculopathy Elevated cholesterol Fusion of spine, cervical region History of anesthesia complications Hx of chest pain Hx of gastritis Hx of migraine headaches Multinodular thyroid Osteoarthritis TMJ syndrome Surgical History H/O colonoscopy History of esophagogastroduodenoscopy (EGD) History of spinal fusion Hx of cholecystectomy Hx of dilation and curettage Hx of shoulder surgery Hx of tonsillectomy Hx of tubal ligation S/P thyroid biopsy Family History Family History Mother Diabetes Uterine cancer Hypertension Father Diabetes Hypertension Stroke Social History Social History Household Members: Spouse Are you a primary managed care manager to a significant other at home: No Do you presently have visiting nurse or other home services: No Alcohol intake: never Patient Tobacco Use Status: Former Tobacco user Quit Date: 1990 Tobacco use type: Cigarette Smoked in Last 30 Days: No Use of substances other than those prescribed or required for medical reasons: No Advance Directives: No service: No Current occupational status: employed and unemployed Current occupation: right hand dominant Physical Exam ED Vital Signs: Vital Signs - 24 hr 09/24/22 06:10 09/24/22 07:16 09/24/22 08:00 Temperature 98.1 F 98.2 F 98.2 F Pulse Rate 111 H 112 H 100 Respiratory Rate 20 18 14 Blood Pressure 118/80 124/85 110/60 Pulse Oximetry 95 94 95 Oxygen Delivery Method Room Air Room Air Room Air 09/24/22 12:38 Temperature 98.6 F Pulse Rate 96 Respiratory Rate 16 Blood Pressure 115/60 Pulse Oximetry 96 Oxygen Delivery Method Room Air BMI result Body Mass Index 21.9 Const General: cooperative, no acute distress, alert and awake Nutritional Appearance: well nourished Orientation/consciousness: patient oriented x3 Limitations: no limitations HENMT Head: Yes normal to inspection and Yes atraumatic Ears: hearing grossly normal bilaterally and external ears normal General nose exam: Normal external nose present, no nasal discharge noted and no epistaxis Face and sinus: Yes normal facial exam, No abrasion and No laceration Mouth: Normal oral and palatal mucosa present, no drooling and no muffled voice Eyes General: appearance normal, both eyes and all related structures Periorbital: periorbital findings normal Eyelids: Yes eyelids normal Conjunctivae: conjunctivae normal Pupils: Equal, round and reactive pupils present EOM: EOMs intact bilaterally Neck Neck: Yes normal visual inspection, Yes full ROM and Yes no lymphadenopathy Chest Chest palpation & inspection: normal inspection of the chest Resp Effort & Inspection: normal respiratory effort and able to speak in complete sentences Auscultation: clear to auscultation bilaterally Cardio Rate: tachycardic Rhythm: regular rhythm GI Inspection: Yes normal to inspection Palpation (GI): Soft to palpation, not firm, Tenderness to palpation present (GI) (diffuse), no guarding and not rigid Neuro General: patient oriented x3 and moves all extremities Cranial nerves: Yes Equal, round and reactive pupils present Cognition (Neuro): normal cognition Motor exam (neuro): 5/5 motor strength present throughout Sensory Exam: Normal double simultaneous stimulation for sensation Coordination: [id number]-za-[id number] test normal Extrem General: Yes normal to inspection, Yes full ROM and Yes capillary refill normal Psych Appearance: grossly normal Mental Status: mental status grossly normal Affect: normal affect Attitude: cooperative Thought process: Normal thought process present Thought content: Normal thought content present Insight: Good insight present (Psych) Medications Administered Generic Name Dose Route Start Last Admin Trade Name Freq PRN Reason Stop Dose Admin Enoxaparin Sodium 40 mg 09/24/22 14:15 09/24/22 14:51 Enoxaparin Sodium 40 Mg/0.4 Ml Syringe SUBCUT 40 mg Q24H CHAMP Administration Metronidazole 500 mg in 100 mls @ 100 mls/hr 09/24/22 14:30 09/24/22 14:50 Flagyl IV 100 mls/hr Q8H CHAMP Administration Discontinued Medications Generic Name Dose Route Start Last Admin Trade Name Freq PRN Reason Stop Dose Admin Ceftriaxone Sodium 2 gm/ 50 mls @ 100 mls/hr 09/24/22 07:10 09/24/22 09:00 Sodium Chloride IV 09/24/22 07:39 Infused ONCE ONE Infusion Sodium Chloride 1,632.93 mls @ 1,632.93 mls/hr 09/24/22 07:10 09/24/22 07:36 Ns 30 ml/kg infuse over 1 hr (1632.93 ml) 09/24/22 08:09 1,632.93 mls/hr IV Administration .Q1H STA Ketorolac Tromethamine 30 mg 09/24/22 07:10 09/24/22 07:36 Ketorolac Tromethamine 30 Mg/Ml Vial IVPUSH 09/24/22 07:11 30 mg ONCE ONE Administration Ketorolac Tromethamine 15 mg 09/24/22 11:52 09/24/22 12:14 Ketorolac Tromethamine 15 Mg/Ml Vial IVPUSH 09/24/22 11:53 15 mg ONCE ONE Administration Medical Decision Making Medical Decision Making [facility] Narrative: Patient is a 57 year old assigned female at with a history of polyarthralgia presenting to the emergency department today with abdominal pain. Patient's physical exam showed diffuse abdominal tenderness and tachycardia but was otherwise unremarkable. Patient's blood work showed en elevated WBC count of 26, elevated ESR of 67, and an elevated CRP of 27.64. Patient's urine showed blood but no evidence infection. Patient's EKG was unremarkable. Patient's abdomen/pelvis CT had to be performed without IV contrast due to the patient's allergy. It showed multiple findings as detailed within this chart, of note, mildly dilated segments of small bowel with intermittent segments of mild wall thickening. The radiologist noted this could represent infection or inflammatory ileitis or a mild ileus. Patient's chest CT showed a new 1.5cm pericardial effusion. Patient's clinical presentation is most consistent with an infla mmatory / infectious ileitis. Patient's clinical presentation is not consistent with sepsis (@1245). I spoke to cardiology who recommended medical admission with an echo to be done tomorrow morning. I spoke to GI who recommended medical admission and stated they'd follow the case. Patient was given IV rocephin. Spoke to the hospitalist team who agreed to admission. I explained my physical exam findings as well as all test results to the patient and the patient's partner. I answered all questions asked by the patient and the patient's partner. Patient and the patient's partner verbalized agreement and understanding with this treatment plan and admission. Differential Diagnosis Differential Diagnoses: The differential diagnosis associated with the presentation includes pericardial effusion, ileitus, abdominal pain, nausea Consult Healthcare Provider Management of the patient was discussed with: Hospitalist (agreed to admission) and Leaf Tier (spoke to cardiology and GI as noted in the MDM portion of this chart) Lab Data [facility] Lab Attestation statement: I reviewed the patient's lab results. 09/24/22 06:18 09/24/22 06:18 Labs: Lab Results 09/24/22 09/24/22 09/24/22 Range/Units 06:18 06:18 06:18 WBC 26.0 H (4.8-10.8) X10*3/uL RBC 4.91 (4.20-5.50) X10*6/uL Hgb 15.1 (12.0-16.0) g/dl Hct 43.2 (37.0-47.0) % MCV 88.0 (80.0-98.0) fL MCH 30.8 (27.0-33.0) pg MCHC 35.0 (31.0-35.0) g/dl RDW 12.7 (11.0-16.0) % Plt Count 323 (160-400) X10*3/uL MPV 10.6 (9.4-12.3) fL Immature Gran % (Auto) 0.7 H (0.0-0.4) % Neut % (Auto) 88.9 H (45-73) % Lymph % (Auto) 3.4 L (20-40) % [place] % (Auto) 6.7 (2-11) % Eos % (Auto) 0.0 (0-4) % Baso % (Auto) 0.3 (0-2) % Lymph # (Auto) 0.9 L (1.2-4.9) X10*3/uL [place] # (Auto) 1.7 H (0.1-1.2) X10*3/uL Eos # (Auto) 0.0 (0.0-0.4) X10*3/uL Baso # (Auto) 0.1 (0.0-0.2) X10*3/uL Abs Immat Gran (auto) 0.18 H (0.00-0.03) X10*3/uL Absolute Neuts (auto) 23.1 H (2.0-8.3) x10*3/uL Absolute Nucleated RBC 0.000 (0.0-0.012) X10*3/uL Nucleated RBC % (auto) 0.0 (0.0-0.2) /100WBC Neutrophils % (Manual) Cancelled Band Neutrophils % Cancelled Lymphocytes % (Manual) Cancelled Atypical Lymphs % (Man) Cancelled Monocytes % (Manual) Cancelled Eosinophils % (Manual) Cancelled Basophils % (Manual) Cancelled Metamyelocytes % Cancelled Myelocytes % Cancelled Promyelocytes % Cancelled Blast Cells % (Manual) Cancelled Plasma Cell % (Manual) Cancelled Abs Neuts (Manual) Cancelled Lymphocytes # (Manual) Cancelled Atyp Lymphs # (Manual) Cancelled Monocytes # (Manual) Cancelled Eosinophils # (Manual) Cancelled Basophils # (Manual) Cancelled Metamyelocytes # Cancelled Myelocytes # Cancelled Promyelocytes # Cancelled Blast Cells # Cancelled Plasma Cell # (Manual) Cancelled Nucleated RBCs Cancelled Differential Comment Cancelled Hypersegmented Neuts Cancelled Smudge Cells Cancelled Toxic Granulation Cancelled Toxic Vacuolation Cancelled Dohle Bodies Cancelled Lynette Rods Cancelled WBC Morphology Comment Cancelled Platelet Estimate Cancelled Large Platelets Cancelled Giant Platelets Cancelled Plt Morphology Comment Cancelled RBC Morphology Cancelled Polychromasia Cancelled Hypochromasia Cancelled Basophilic Stippling Cancelled Microcytosis Cancelled Macrocytosis Cancelled Spherocytes Cancelled Pappenheimer Bodies Cancelled Sickle Cells Cancelled Target Cells Cancelled Tear Drop Cells Cancelled Ovalocytes Cancelled Stomatocytes Cancelled [place] Bodies Cancelled Mariano Cells Cancelled Acanthocytes (Spur) Cancelled Rouleaux Cancelled Schistocytes Cancelled ESR (0-20) MM/HR Sodium 140 (135-145) mmol/L Potassium 3.8 (3.3-5.1) mmol/L Chloride 106 (96-108) mmol/L Carbon Dioxide 18 L (22-29) mmol/L Anion Gap 20 (12-20) BUN 14 (9-16) mg/dL Creatinine 0.78 (0.5-1.4) mg/dL Estim Creat Clear Calc 61.4 Estimated GFR > 60 POC Glucose (60-115) mg/dL Random Glucose 147 H (60-115) mg/dL Lactic Acid (0.5-2.0) mmol/L Calcium 9.3 (8.4-10.2) mg/dL Total Bilirubin 0.7 (0.0-1.0) mg/dL Direct Bilirubin 0.2 (0.0-0.5) mg/dL AST 42 H (5-31) U/L ALT 45 H (0-31) U/L Alkaline Phosphatase 96 (39-117) U/L Troponin I High Sens 5.8 (<3.5-17.0) ng/L C-Reactive Protein 27.64 H (< or = 0.50) mg/dL B-Natriuretic Peptide (<100) pg/mL Total Protein 7.6 (6.5-8.0) g/dL Albumin 4.1 (3.5-5.0) g/dL Amylase 44 (28-100) U/L Lipase 8 (8-78) U/L Urine Color Urine Appearance Urine pH (5.0-9.0) Ur Specific [place] (1.005-1.025) Urine Protein (Neg-Trace) mg/dL Urine Glucose (UA) (Negative) mg/dL Urine Ketones (Negative) mg/dL Urine Blood (Negative) Urine Nitrite (Negative) Ur Leukocyte Esterase (Negative) Urine RBC (0-2) /HPF Urine WBC (0-5) /HPF Ur Squamous Epith Cells (0-2) /HPF Urine Bacteria (None Seen) Hyaline Casts (0-2) /LPF 09/24/22 09/24/22 09/24/22 Range/Units 06:18 06:18 07:34 WBC (4.8-10.8) X10*3/uL RBC (4.20-5.50) X10*6/uL Hgb (12.0-16.0) g/dl Hct (37.0-47.0) % MCV (80.0-98.0) fL MCH (27.0-33.0) pg MCHC (31.0-35.0) g/dl RDW (11.0-16.0) % Plt Count (160-400) X10*3/uL MPV (9.4-12.3) fL Immature Gran % (Auto) (0.0-0.4) % Neut % (Auto) (45-73) % Lymph % (Auto) (20-40) % [place] % (Auto) (2-11) % Eos % (Auto) (0-4) % Baso % (Auto) (0-2) % Lymph # (Auto) (1.2-4.9) X10*3/uL [place] # (Auto) (0.1-1.2) X10*3/uL Eos # (Auto) (0.0-0.4) X10*3/uL Baso # (Auto) (0.0-0.2) X10*3/uL Abs Immat Gran (auto) (0.00-0.03) X10*3/uL Absolute Neuts (auto) (2.0-8.3) x10*3/uL Absolute Nucleated RBC (0.0-0.012) X10*3/uL Nucleated RBC % (auto) (0.0-0.2) /100WBC Neutrophils % (Manual) Band Neutrophils % Lymphocytes % (Manual) Atypical Lymphs % (Man) Monocytes % (Manual) Eosinophils % (Manual) Basophils % (Manual) Metamyelocytes % Myelocytes % Promyelocytes % Blast Cells % (Manual) Plasma Cell % (Manual) Abs Neuts (Manual) Lymphocytes # (Manual) Atyp Lymphs # (Manual) Monocytes # (Manual) Eosinophils # (Manual) Basophils # (Manual) Metamyelocytes # Myelocytes # Promyelocytes # Blast Cells # Plasma Cell # (Manual) Nucleated RBCs Differential Comment Hypersegmented Neuts Smudge Cells Toxic Granulation Toxic Vacuolation Dohle Bodies Lynette Rods WBC Morphology Comment Platelet Estimate Large Platelets Giant Platelets Plt Morphology Comment RBC Morphology Polychromasia Hypochromasia Basophilic Stippling Microcytosis Macrocytosis Spherocytes Pappenheimer Bodies Sickle Cells Target Cells Tear Drop Cells Ovalocytes Stomatocytes [place] Bodies Mariano Cells Acanthocytes (Spur) Rouleaux Schistocytes ESR 67 H (0-20) MM/HR Sodium (135-145) mmol/L Potassium (3.3-5.1) mmol/L Chloride (96-108) mmol/L Carbon Dioxide (22-29) mmol/L Anion Gap (12-20) BUN (9-16) mg/dL Creatinine (0.5-1.4) mg/dL Estim Creat Clear Calc Estimated GFR POC Glucose (60-115) mg/dL Random Glucose (60-115) mg/dL Lactic Acid 1.7 (0.5-2.0) mmol/L Calcium (8.4-10.2) mg/dL Total Bilirubin (0.0-1.0) mg/dL Direct Bilirubin (0.0-0.5) mg/dL AST (5-31) U/L ALT (0-31) U/L Alkaline Phosphatase (39-117) U/L Troponin I High Sens (<3.5-17.0) ng/L C-Reactive Protein (< or = 0.50) mg/dL B-Natriuretic Peptide 64 (<100) pg/mL Total Protein (6.5-8.0) g/dL Albumin (3.5-5.0) g/dL Amylase (28-100) U/L Lipase (8-78) U/L Urine Color Urine Appearance Urine pH (5.0-9.0) Ur Specific [place] (1.005-1.025) Urine Protein (Neg-Trace) mg/dL Urine Glucose (UA) (Negative) mg/dL Urine Ketones (Negative) mg/dL Urine Blood (Negative) Urine Nitrite (Negative) Ur Leukocyte Esterase (Negative) Urine RBC (0-2) /HPF Urine WBC (0-5) /HPF Ur Squamous Epith Cells (0-2) /HPF Urine Bacteria (None Seen) Hyaline Casts (0-2) /LPF 09/24/22 09/24/22 09/24/22 Range/Units 09:17 11:18 12:10 WBC (4.8-10.8) X10*3/uL RBC (4.20-5.50) X10*6/uL Hgb (12.0-16.0) g/dl Hct (37.0-47.0) % MCV (80.0-98.0) fL MCH (27.0-33.0) pg MCHC (31.0-35.0) g/dl RDW (11.0-16.0) % Plt Count (160-400) X10*3/uL MPV (9.4-12.3) fL Immature Gran % (Auto) (0.0-0.4) % Neut % (Auto) (45-73) % Lymph % (Auto) (20-40) % [place] % (Auto) (2-11) % Eos % (Auto) (0-4) % Baso % (Auto) (0-2) % Lymph # (Auto) (1.2-4.9) X10*3/uL [place] # (Auto) (0.1-1.2) X10*3/uL Eos # (Auto) (0.0-0.4) X10*3/uL Baso # (Auto) (0.0-0.2) X10*3/uL Abs Immat Gran (auto) (0.00-0.03) X10*3/uL Absolute Neuts (auto) (2.0-8.3) x10*3/uL Absolute Nucleated RBC (0.0-0.012) X10*3/uL Nucleated RBC % (auto) (0.0-0.2) /100WBC Neutrophils % (Manual) Band Neutrophils % Lymphocytes % (Manual) Atypical Lymphs % (Man) Monocytes % (Manual) Eosinophils % (Manual) Basophils % (Manual) Metamyelocytes % Myelocytes % Promyelocytes % Blast Cells % (Manual) Plasma Cell % (Manual) Abs Neuts (Manual) Lymphocytes # (Manual) Atyp Lymphs # (Manual) Monocytes # (Manual) Eosinophils # (Manual) Basophils # (Manual) Metamyelocytes # Myelocytes # Promyelocytes # Blast Cells # Plasma Cell # (Manual) Nucleated RBCs Differential Comment Hypersegmented Neuts Smudge Cells Toxic Granulation Toxic Vacuolation Dohle Bodies Lynette Rods WBC Morphology Comment Platelet Estimate Large Platelets Giant Platelets Plt Morphology Comment RBC Morphology Polychromasia Hypochromasia Basophilic Stippling Microcytosis Macrocytosis Spherocytes Pappenheimer Bodies Sickle Cells Target Cells Tear Drop Cells Ovalocytes Stomatocytes [place] Bodies [place] Cells Acanthocytes (Spur) Rouleaux Schistocytes ESR (0-20) MM/HR Sodium (135-145) mmol/L Potassium (3.3-5.1) mmol/L Chloride (96-108) mmol/L Carbon Dioxide (22-29) mmol/L Anion Gap (12-20) BUN (9-16) mg/dL Creatinine (0.5-1.4) mg/dL Estim Creat Clear Calc Estimated GFR POC Glucose 91 (60-115) mg/dL Random Glucose (60-115) mg/dL Lactic Acid (0.5-2.0) mmol/L Calcium (8.4-10.2) mg/dL Total Bilirubin (0.0-1.0) mg/dL Direct Bilirubin (0.0-0.5) mg/dL AST (5-31) U/L ALT (0-31) U/L Alkaline Phosphatase (39-117) U/L Troponin I High Sens 9.0 D (<3.5-17.0) ng/L C-Reactive Protein (< or = 0.50) mg/dL B-Natriuretic Peptide (<100) pg/mL Total Protein (6.5-8.0) g/dL Albumin (3.5-5.0) g/dL Amylase (28-100) U/L Lipase (8-78) U/L Urine Color Yellow Urine Appearance Clear Urine pH 5.5 (5.0-9.0) Ur Specific [place] 1.020 (1.005-1.025) Urine Protein 100 (2+) H (Neg-Trace) mg/dL Urine Glucose (UA) Negative (Negative) mg/dL Urine Ketones 40 (Negative) mg/dL Urine Blood Large (3+) H (Negative) Urine Nitrite Negative (Negative) Ur Leukocyte Esterase Negative (Negative) Urine RBC 11-20 H (0-2) /HPF Urine WBC 0-5 (0-5) /HPF Ur Squamous Epith Cells 0-2 (0-2) /HPF Urine Bacteria None Seen (None Seen) Hyaline Casts 0-2 (0-2) /LPF Independent Interpretation I performed an independent interpretation of an: EKG Interpretation: Vent. Rate: 116 BPM ? ? Atrial Rate: 116 BPM P-R Int: 122 ms? QRS Dur: 068 ms QT Int: 292 ms ? ? ? P-R-T Axes: 032 064 046 degrees QTc Int: 405 ms ? Sinus tachycardia Otherwise normal ECG When compared with ECG of 07-MAY-2022 09:16, Nonspecific T wave abnormality now evident in Inferior leads Nonspecific T wave abnormality now evident in Anterior leads DD/ 0609 Radiology Impression Radiologist Impression: My interpretation is in agreement with the radiologist's impression of these imaging studies. EXAMINATION: CT CHEST, ABDOMEN AND PELVIS without contrast CLINICAL INFORMATION: Reason for Exam abdominal pain COMPARISON: None TECHNIQUE:? Multidetector volumetric CT imaging of the chest abdomen and pelvis obtained Axial MIP volume rendering provided. Sagittal and coronal reformatted images were obtained. This CT examination was performed using dose optimization techniques as appropriate, variously including the following: *Automated exposure control *Adjustment of mA and/or kV according to patient size (this includes techniques or standardized protocols for targeted exams where dose is matched to indication/reason for exam; i.e. extremities or head) *Use of iterative reconstruction technique CONTRAST: , Noncontrast study. Reformatted coronal and sagittal imaging was performed. DLP: 458+227 mGy-cm FINDINGS: C.O.D. AUDIT CLERK, LINES TUBES: Portrait Photographer reviewed, no lines. LUNGS: Bilateral small pleural effusion, subsegmental atelectasis left lingula base, mild compression atelectasis at both right and left lower lobe posteriorly. 4 mm nodule right lower lobe image 240 series 5. AIRWAYS: Trachea and bronchi are normal. PLEURA: No pleural effusion or pneumothorax. MEDIASTINUM AND ARELIS: The visualized thyroid gland is unremarkable. No mediastinal, hilar or axillary lymphadenopathy. ? There is no mediastinal mass. THORACIC AORTA: Thoracic aorta is normal in size. CHEST WALL, LOWER NECK, SURROUNDING SOFT TISSUES: Normal HEART AND PERICARDIUM: There is moderate size pericardial effusion roughly up to 1.5 cm in thickness. No significant coronary calcifications. HEPATOBILIARY: There is a cyst in the right lobe of the liver 1.4 x 0.9 cm. There is a cyst in the left lobe of the liver 1.4 x 1.7 cm segment 4, 2 other cysts in the segment 6 of the liver 1.7 cm and 1.4 cm. Evaluation of the cyst in the liver are limited due to lack of contrast. GALLBLADDER: Gallbladder has been removed. SPLEEN: Spleen is normal in size. PANCREAS: Small atrophic pancreas, no pancreatic mass. GI TRACT: Mildly dilated segments of small bowel with intermittent segment of mild wall thickening, without causing high grade obstruction, could be infection or inflammatory ileitis. No CT evidence of appendicitis. ADRENALS: No adrenal nodules. KIDNEYS/URETERS: There is a 2 mm nonobstructing stone in the right kidney. Kidneys otherwise normal in size and texture. No hydronephrosis. Perinephric fat are clear.. Evaluation is limited due to lack of oral and IV contrast and crowding of bowel loops. PELVIC ORGANS/BLADDER: There is an elliptical shape fluid-filled structure posterior right wall of the pelvis 2.8 x 1.8 cm, it extends along the expected nerve roots exiting from sacrum neural foramen raising the possibility of nerve sheath cyst. This could be evaluated further with follow-up MRI lumbar spine. PERITONEUM: No free air or fluid. LYMPH NODES:? no retroperitoneal or mesenteric lymphadenopathy. VASCULAR:Abdominal aorta normal in size, no aneurysm found. BONES, ABDOMINAL WALL AND SOFT TISSUES: Age-appropriate changes of the spine and skeletal system, no destructive osteolytic or osteosclerotic bone lesion found CT/CT chest wo IV con IMPRESSION: ? *? Circumferential moderate size pericardial effusion. ? *? Mildly dilated segments of small bowel with intermittent segments of mild wall thickening, without high-grade obstruction, pattern might be due to infection or inflammatory ileitis and/or mild ileus. Evaluation is limited due to lack of oral and IV contrast and crowding of bowel loops. If patient remain symptomatic, consider correlation with follow-up upper GI small bowel follow-through.. ? *? Bilateral small pleural effusions, subsegmental atelectasis at both right and left lower lobe posteriorly. ? *? Liver cysts. ? *? Atrophic pancreas. ? *? 2 mm nonobstructing stone in the right kidney. ? *? Fluid-filled structure posterior right wall of the pelvis 2.8 x 1.8 cm, it extends along the expected nerve roots from the sacrum raising the possibility of nerve sheath cyst. This could be evaluated further with follow-up MRI lumbar spine. ? *? 4 mm nodule right lower lobe. Various management parameters for solitary pulmonary nodules are in the literature. According to the UPDATED 2017 Fleischner Society recommendations, the advised follow-up imaging for solid nodules < 6 mm is: ?? LOW RISK PATIENT: No routine follow-up. ?? HIGH RISK PATIENT: Optional CT at 12 months. ? Reference: Guidelines for Management of Incidental Pulmonary Nodules Detected on CT Images: From the Fleischner Society 2017. Dictated By: Walter Corona MD Signed By: Electronically signed by Walter Corona MD 09/24/22 0954 Independent Historian Clinical information obtained from an independent historian. History obtained from or confirmed by: Spouse Critical Care Time Critical Care Time Critical Care Time: Yes Total Critical Care Time: 60 Attestation: I spent 60 minutes of Critical Care Time with this patient. This does not include time spent on separately reported billable procedures. Discharge Plan Discharge Clinical Impression: Acute pericardial effusion, Ileitis, Nausea & vomiting Patient Disposition: Admitted As Inpatient
[2022-09-24 06:49] LABS: Anion Gap 20 (12-20); Blood Urea Nitrogen 14 mg/dL (9-16); Calcium 9.3 mg/dL (8.4-10.2); Carbon Dioxide 18 mmol/L (22-29); Chloride 106 mmol/L (96-108); Creatinine Clr Calc Pharmacy 61.4; Estimated Glomerular Filt Rate > 60; Glucose Random 147 mg/dL (60-115); Potassium 3.8 mmol/L (3.3-5.1); Sodium 140 mmol/L (135-145)
--- NOTE | 2022-09-24 07:17 | PC.NURSE ---
various complaints. many months of cm shoulder pain. more recently n/v/abd pain (mid abd) x 3 days. has been able to take small sips and keep them down but decreased urination. last urination was last night and a few drops this am. no active vomiting. st on monitor. also intermittent substernal CP since arrival to ED but pt wonders if it's from dryheaving.
[2022-09-24] MEDS: cefTRIAXone sodium 2 GM in 0.9 % Sodium Chloride 50 ML IV (07:35)
[2022-09-24] MEDS: Ketorolac Tromethamine 30 MG/ML VIAL IVPUSH (07:36)
[2022-09-24] MEDS: 0.9 % Sodium Chloride 1,632.93 ML 1632.93 ML IV (07:36)
--- NOTE | 2022-09-24 07:47 | PC.NURSE ---
able to ambuate to the BR then CT natural void of 100ml/
[2022-09-24 07:51] LABS: C Reactive Protein 27.64 mg/dL (< or = 0.50)
[2022-09-24 08:02] LABS: Lactic Acid 1.7 mmol/L (0.5-2.0)
[2022-09-24 09:05] LABS: Erythrocyte Sedimentation Rate 67 MM/HR (0-20)
[2022-09-24 09:29] LABS: Appearance Urine Clear; Color Urine Yellow; Glucose Urine UA Negative (Negative); Leukocyte Esterase Urine Negative (Negative); Nitrite Urine Negative (Negative); PH 5.5 (5.0-9.0); UMIC TRIGGER UACC YES; Urine Blood Large (3+) (Negative); Urine Ketones 40 mg/dL (Negative); Urine Protein 100 (2+) mg/dL (Neg-Trace)
[2022-09-24 09:34] LABS: Bacteria Urine None Seen (None Seen); Hyaline Casts Urine 0-2 /LPF (0-2); Squamous Epithelial Cell Urine 0-2 /HPF (0-2); WBC Urine 0-5 /HPF (0-5)
[2022-09-24 09:38] LABS: B Type Natriuretic Peptide 64 pg/mL (<100)
[2022-09-24 10:12] LABS: Troponin-I High Sensitivity 5.8 ng/L (<3.5-17.0)
[2022-09-24 10:35] LABS: Basophils Percent Auto 0.3 % (0-2); Imm Gran Pct Auto 0.7 % (0.0-0.4); Lymphocytes Percent Auto 3.4 % (20-40); MANUAL DIFF FLAG NO; Monocytes Percent Auto 6.7 % (2-11); Neutrophils Percent Auto 88.9 % (45-73)
--- NOTE | 2022-09-24 10:35 | PC.NURSE ---
Patient resting on stretcher receiving IV fluids. Patient speaking with pharmacy regarding home medications. Patient is calm and cooperative answering all questions appropriately. No s/s of distress at this time.
[2022-09-24 10:36] LABS: Imm Gran Abs Auto 0.18 X10*3/uL (0.00-0.03); Neutrophils Absolute Auto 23.1 x10*3/uL (2.0-8.3)
[2022-09-24 10:37] LABS: Basophils Absolute Auto 0.1 X10*3/uL (0.0-0.2); Lymphocytes Absolute Auto 0.9 X10*3/uL (1.2-4.9); Monocytes Absolute Auto 1.7 X10*3/uL (0.1-1.2)
--- NOTE | 2022-09-24 10:48 | PHA.MEDREC ---
Pharmacy Consult ? Medication Reconciliation Pharmacy has completed the medication reconciliation. Per patient, most meds are prn Antoni
[2022-09-24 11:22] LABS: Glucose, Whole Blood 91 mg/dL (60-115)
[2022-09-24 11:36] LABS: Alanine Aminotransferase 45 U/L (0-31); Albumin Level 4.1 g/dL (3.5-5.0); Alkaline Phosphatase 96 U/L (39-117); Amylase 44 U/L (28-100); Aspartate Amino Transferase 42 U/L (5-31); Bilirubin Direct 0.2 mg/dL (0.0-0.5); Bilirubin Total 0.7 mg/dL (0.0-1.0); Lipase 8 U/L (8-78); Total Protein 7.6 g/dL (6.5-8.0)
[2022-09-24] MEDS: Ketorolac Tromethamine 15 MG/ML VIAL IVPUSH ×2 (12:14→20:41)
--- NOTE | 2022-09-24 13:04 | P.HPHOSP_ITS ---
History of Present Illness Date of Service: 09/24/22 Attending physician on admission: Arben Benjamin [facility] Chief Complaint: Abdominal pain Pt is a 57-year-old female with a PMH significant for?gastroparesis, abdominal migraines, osteoarthritis, and recent left surgery for a SLAP tear (06/08/2022) who presents to the ED with?severe abdominal pain and intermittent chest pain. Pt has a history of abdominal migraines and IBS-type symptoms, and has been experiencing alternating diarrhea and constipation for the past 2-3 weeks. Pt then developed diffuse abdominal pain and nausea with occasional vomiting 3 days ago. Has felt bloated/swollen, and had decreased appetite. Denies fever, but endorses chills. No hematemesis, hematochezia. For the past 4 days patient was also been experiencing intermittent chest pain/pressure that radiates to her shoulders, it is relieved with rest. Patient also notes that lately she has been unable to take a full, deep breath. Denies lightheadedness, dizziness. 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 Sorto. She has had known autoimmune issues without a formal diagnosis. In the ED labs were significant for leukocytosis of 26.0, AST 42, ALT 45, C- reactive protein of 27.64, ESR 67, BNP negative, lipase and amylase WNL. UA negative for UTI. CXR showed suspected left basilar atelectasis. CT?mildly dilated segments of small bowel with some mild thickening without high-grade obstruction, infectious or inflammatory ileitis versus mild ileus. Other findings include bilateral small pleural effusions, liver cysts, atrophic pancreas, 2 mm nonobstructing right kidney calculus, fluid-filled structure posterior right wall of pelvis possible nerve sheath cyst, and circumferential moderate-sized pericardial effusion. EKG demonstrated sinus tachycardia with no evidence of ST elevations or depressions. Pt was treated with ceftriaxone, ketorolac, IVF. Pt will be admitted to the hospital for treatment and further evaluation of possible infectious ileitis and pericardial effusion. Review of Systems Review of Systems: Diffuse abdominal pain Alternating constipation and diarrhea Nausea, vomiting Chest pain/pressure Chills, no fever Yes all other systems are reviewed and are negative [facility] Medical History Cervical radiculopathy Elevated cholesterol Fusion of spine, cervical region History of anesthesia complications Hx of chest pain Hx of gastritis Hx of migraine headaches Multinodular thyroid Osteoarthritis TMJ syndrome Family History Mother Diabetes Uterine cancer Hypertension Father Diabetes Hypertension Stroke Surgical History H/O colonoscopy History of esophagogastroduodenoscopy (EGD) History of spinal fusion Hx of cholecystectomy Hx of dilation and curettage Hx of shoulder surgery Hx of tonsillectomy Hx of tubal ligation S/P thyroid biopsy Social History Household Members: Spouse Are you a primary childcare aide to a significant other at home: No Do you presently have visiting nurse or other home services: No Alcohol intake: never Patient Tobacco Use Status: Former Tobacco user Quit Date: 1990 Tobacco use type: Cigarette Smoked in Last 30 Days: No Use of substances other than those prescribed or required for medical reasons: No Currently Displaying Signs/Symptoms of Drug Intoxication Withdrawal: No Have you been hit, kicked, punched, or otherwise hurt by someone within the past year? If so, by whom?: No Do you feel safe in your current relationship?: Yes Is there a partner from a previous relationship who is making you feel unsafe now?: No Are you made to feel afraid or neglected: No Advance Directives: No Advance Directives Information Provided: No (declined) Do you have thoughts of harming others: None Do you have a plan to hurt others: No Plan Recently lost weight without trying: No Eating poorly because of decreased appetite: No Nutrition Risks: Acute nausea or vomiting x1 week Patient : No service: No Current occupational status: employed and unemployed Current occupation: right hand dominant Meds Allergies Allergy/AdvReac Type Severity Reaction Status Date / Time atorvastatin Allergy Mild muscle pain Verified 08/24/22 11:20 blue dye Allergy Mild Unknown Verified 08/24/22 11:20 iodine Allergy Mild Itching Verified 08/24/22 11:20 red dye Allergy Mild Unknown Verified 08/24/22 11:20 tree and shrub pollen Allergy Mild Nasal Verified 08/24/22 11:20 congestion erythromycin base Allergy Nausea and Verified 08/24/22 11:20 Vomiting stevioside [From Stevia] AdvReac Abdominal Verified 08/24/22 11:20 Pain Active Medications: Current Medications Pharmacy Consult (Consult Rx Perform Med Rec) 1 each MISCELLANE ONCE PRN PRN Reason: Consult order Home Medications Medication Instructions Recorded Confirmed Last Taken Type cyclosporine 0.05 % eye drops in a 1 drp ophthalmic (eye) BID 11/11/20 09/24/22 Unknown History dropperette erenumab-aooe 70 mg/mL 1 syringe subcut QMONTH 11/26/20 09/24/22 09/08/22 History subcutaneous auto-injector (Aimovig Autoinjector) acyclovir 400 mg tablet 400 mg PO BID PRN Cold Sores 06/27/22 09/24/22 Unknown History cyclobenzaprine 10 mg tablet 10 mg PO DAILY PRN Spasms 06/27/22 09/24/22 Unknown History ondansetron HCl 4 mg tablet 4 mg PO DAILY PRN Nausea 06/27/22 09/24/22 Unknown History zolmitriptan 5 mg tablet 5 mg PO DAILY PRN Migraine Headache 06/27/22 09/24/22 Unknown History zendctdqsj-ebgceutdquvxm-lsxfacli 1 cap PO Q8H PRN MIGRAINES 08/24/22 09/24/22 Unknown History 50 mg-325 mg-40 mg capsule dicyclomine 20 mg tablet 20 mg PO TID PRN SPASMS 09/24/22 09/24/22 Unknown History metoclopramide HCl 10 mg tablet 10 mg PO TIDAC PRN Spasms 09/24/22 09/24/22 Unknown History (Reglan) zolmitriptan 5 mg nasal spray 1 spray intranasal DAILY PRN 09/24/22 09/24/22 Unknown History (Zomig) Migraine Headache Physical Exam Vital Signs and Narrative: Vital Signs: Last Vital Signs Temp 98.6 F 09/24/22 12:38 Pulse 96 09/24/22 12:38 Resp 16 09/24/22 12:38 BP 115/60 09/24/22 12:38 Pulse Ox 96 09/24/22 12:38 O2 Del Method Room Air 09/24/22 12:38 BMI result Body Mass Index 21.9 Constitutional: Alert, in no acute distress. Mental Status: Oriented to person, place and time. Eyes: Pupils are equal, round, and reactive to light. Ear, Nose, and Throat: Oropharynx clear, mucous membranes moist. Ears and nose without deformities. Trachea midline. Respiratory: Clear to auscultation bilaterally. No wheezing, rales, or rhonchi. Cardiovascular: S1, S2, tachycardic. No murmurs, rubs, or gallops. Gastrointestinal: Abdomen soft, non-distended, diffusely tender. Normal bowel sounds. Neurologic: Cranial nerves II-XII are grossly intact bilaterally. No focal neurological deficits. Moves all extremities spontaneously. Skin: No rashes or lesions noted. Extremities: No edema. Psychiatric: Normal mood and affect. Results Labs 09/24/22 06:18 09/24/22 06:18 Labs: Laboratory Results - last 24 hr 09/24/22 09/24/22 09/24/22 06:18 06:18 06:18 MCV 88.0 MCH 30.8 MCHC 35.0 RDW 12.7 Plt Count 323 MPV 10.6 Immature Gran % (Auto) 0.7 H Neut % (Auto) 88.9 H Lymph % (Auto) 3.4 L [place] % (Auto) 6.7 Eos % (Auto) 0.0 Baso % (Auto) 0.3 Lymph # (Auto) 0.9 L [place] # (Auto) 1.7 H Eos # (Auto) 0.0 Baso # (Auto) 0.1 Abs Immat Gran (auto) 0.18 H Absolute Neuts (auto) 23.1 H Absolute Nucleated RBC 0.000 Nucleated RBC % (auto) 0.0 Neutrophils % (Manual) Cancelled Band Neutrophils % Cancelled Lymphocytes % (Manual) Cancelled Atypical Lymphs % (Man) Cancelled Monocytes % (Manual) Cancelled Eosinophils % (Manual) Cancelled Basophils % (Manual) Cancelled Metamyelocytes % Cancelled Myelocytes % Cancelled Promyelocytes % Cancelled Blast Cells % (Manual) Cancelled Plasma Cell % (Manual) Cancelled Abs Neuts (Manual) Cancelled Lymphocytes # (Manual) Cancelled Atyp Lymphs # (Manual) Cancelled Monocytes # (Manual) Cancelled Eosinophils # (Manual) Cancelled Basophils # (Manual) Cancelled Metamyelocytes # Cancelled Myelocytes # Cancelled Promyelocytes # Cancelled Blast Cells # Cancelled Plasma Cell # (Manual) Cancelled Nucleated RBCs Cancelled Differential Comment Cancelled Hypersegmented Neuts Cancelled Smudge Cells Cancelled Toxic Granulation Cancelled Toxic Vacuolation Cancelled Dohle Bodies Cancelled Lynette Rods Cancelled WBC Morphology Comment Cancelled Platelet Estimate Cancelled Large Platelets Cancelled Giant Platelets Cancelled Plt Morphology Comment Cancelled RBC Morphology Cancelled Polychromasia Cancelled Hypochromasia Cancelled Basophilic Stippling Cancelled Microcytosis Cancelled Macrocytosis Cancelled Spherocytes Cancelled Pappenheimer Bodies Cancelled Sickle Cells Cancelled Target Cells Cancelled Tear Drop Cells Cancelled Ovalocytes Cancelled Stomatocytes Cancelled [place] Bodies Cancelled [place] Cells Cancelled Acanthocytes (Spur) Cancelled Rouleaux Cancelled Schistocytes Cancelled ESR Anion Gap 20 Estim Creat Clear Calc 61.4 Estimated GFR > 60 POC Glucose Random Glucose 147 H Lactic Acid Calcium 9.3 Total Bilirubin 0.7 Direct Bilirubin 0.2 AST 42 H ALT 45 H Alkaline Phosphatase 96 Troponin I High Sens 5.8 C-Reactive Protein 27.64 H B-Natriuretic Peptide Total Protein 7.6 Albumin 4.1 Amylase 44 Lipase 8 Urine Color Urine Appearance Urine pH Ur Specific [place] Urine Protein Urine Glucose (UA) Urine Ketones Urine Blood Urine Nitrite Ur Leukocyte Esterase Urine RBC Urine WBC Ur Squamous Epith Cells Urine Bacteria Hyaline Casts 09/24/22 09/24/22 09/24/22 06:18 06:18 07:34 MCV MCH MCHC RDW Plt Count MPV Immature Gran % (Auto) Neut % (Auto) Lymph % (Auto) [place] % (Auto) Eos % (Auto) Baso % (Auto) Lymph # (Auto) [place] # (Auto) Eos # (Auto) Baso # (Auto) Abs Immat Gran (auto) Absolute Neuts (auto) Absolute Nucleated RBC Nucleated RBC % (auto) Neutrophils % (Manual) Band Neutrophils % Lymphocytes % (Manual) Atypical Lymphs % (Man) Monocytes % (Manual) Eosinophils % (Manual) Basophils % (Manual) Metamyelocytes % Myelocytes % Promyelocytes % Blast Cells % (Manual) Plasma Cell % (Manual) Abs Neuts (Manual) Lymphocytes # (Manual) Atyp Lymphs # (Manual) Monocytes # (Manual) Eosinophils # (Manual) Basophils # (Manual) Metamyelocytes # Myelocytes # Promyelocytes # Blast Cells # Plasma Cell # (Manual) Nucleated RBCs Differential Comment Hypersegmented Neuts Smudge Cells Toxic Granulation Toxic Vacuolation Dohle Bodies Lynette Rods WBC Morphology Comment Platelet Estimate Large Platelets Giant Platelets Plt Morphology Comment RBC Morphology Polychromasia Hypochromasia Basophilic Stippling Microcytosis Macrocytosis Spherocytes Pappenheimer Bodies Sickle Cells Target Cells Tear Drop Cells Ovalocytes Stomatocytes [place] Bodies Mariano Cells Acanthocytes (Spur) Rouleaux Schistocytes ESR 67 H Anion Gap Estim Creat Clear Calc Estimated GFR POC Glucose Random Glucose Lactic Acid 1.7 Calcium Total Bilirubin Direct Bilirubin AST ALT Alkaline Phosphatase Troponin I High Sens C-Reactive Protein B-Natriuretic Peptide 64 Total Protein Albumin Amylase Lipase Urine Color Urine Appearance Urine pH Ur Specific [place] Urine Protein Urine Glucose (UA) Urine Ketones Urine Blood Urine Nitrite Ur Leukocyte Esterase Urine RBC Urine WBC Ur Squamous Epith Cells Urine Bacteria Hyaline Casts 09/24/22 09/24/22 09/24/22 09:17 11:18 12:10 MCV MCH MCHC RDW Plt Count MPV Immature Gran % (Auto) Neut % (Auto) Lymph % (Auto) [place] % (Auto) Eos % (Auto) Baso % (Auto) Lymph # (Auto) [place] # (Auto) Eos # (Auto) Baso # (Auto) Abs Immat Gran (auto) Absolute Neuts (auto) Absolute Nucleated RBC Nucleated RBC % (auto) Neutrophils % (Manual) Band Neutrophils % Lymphocytes % (Manual) Atypical Lymphs % (Man) Monocytes % (Manual) Eosinophils % (Manual) Basophils % (Manual) Metamyelocytes % Myelocytes % Promyelocytes % Blast Cells % (Manual) Plasma Cell % (Manual) Abs Neuts (Manual) Lymphocytes # (Manual) Atyp Lymphs # (Manual) Monocytes # (Manual) Eosinophils # (Manual) Basophils # (Manual) Metamyelocytes # Myelocytes # Promyelocytes # Blast Cells # Plasma Cell # (Manual) Nucleated RBCs Differential Comment Hypersegmented Neuts Smudge Cells Toxic Granulation Toxic Vacuolation Dohle Bodies Lynette Rods WBC Morphology Comment Platelet Estimate Large Platelets Giant Platelets Plt Morphology Comment RBC Morphology Polychromasia Hypochromasia Basophilic Stippling Microcytosis Macrocytosis Spherocytes Pappenheimer Bodies Sickle Cells Target Cells Tear Drop Cells Ovalocytes Stomatocytes [place] Bodies [place] Cells Acanthocytes (Spur) Rouleaux Schistocytes ESR Anion Gap Estim Creat Clear Calc Estimated GFR POC Glucose 91 Random Glucose Lactic Acid Calcium Total Bilirubin Direct Bilirubin AST ALT Alkaline Phosphatase Troponin I High Sens 9.0 D C-Reactive Protein B-Natriuretic Peptide Total Protein Albumin Amylase Lipase Urine Color Yellow Urine Appearance Clear Urine pH 5.5 Ur Specific [place] 1.020 Urine Protein 100 (2+) H Urine Glucose (UA) Negative Urine Ketones 40 Urine Blood Large (3+) H Urine Nitrite Negative Ur Leukocyte Esterase Negative Urine RBC 11-20 H Urine WBC 0-5 Ur Squamous Epith Cells 0-2 Urine Bacteria None Seen Hyaline Casts 0-2 Imaging Radiologist's Impressions: Impressions Chest X-Ray 09/24/22 07:47 IMPRESSION: Suspected left basilar atelectasis. Abdomen/Pelvis CT 09/24/22 09:00 IMPRESSION: * Circumferential moderate size pericardial effusion. * Mildly dilated segments of small bowel with intermittent segments of mild wall thickening, without high-grade obstruction, pattern might be due to infection or inflammatory ileitis and/or mild ileus. Evaluation is limited due to lack of oral and IV contrast and crowding of bowel loops. If patient remain symptomatic, consider correlation with follow-up upper GI small bowel follow-through.. * Bilateral small pleural effusions, subsegmental atelectasis at both right and left lower lobe posteriorly. * Liver cysts. * Atrophic pancreas. * 2 mm nonobstructing stone in the right kidney. * Fluid-filled structure posterior right wall of the pelvis 2.8 x 1.8 cm, it extends along the expected nerve roots from the sacrum raising the possibility of nerve sheath cyst. This could be evaluated further with follow-up MRI lumbar spine. * 4 mm nodule right lower lobe. Various management parameters for solitary pulmonary nodules are in the literature. According to the UPDATED 2017 Fleischner Society recommendations, the advised follow-up imaging for solid nodules < 6 mm is: LOW RISK PATIENT: No routine follow-up. HIGH RISK PATIENT: Optional CT at 12 months. Reference: Guidelines for Management of Incidental Pulmonary Nodules Detected on CT Images: From the Fleischner Society 2017. Chest CT 09/24/22 09:00 IMPRESSION: * Circumferential moderate size pericardial effusion. * Mildly dilated segments of small bowel with intermittent segments of mild wall thickening, without high-grade obstruction, pattern might be due to infection or inflammatory ileitis and/or mild ileus. Evaluation is limited due to lack of oral and IV contrast and crowding of bowel loops. If patient remain symptomatic, consider correlation with follow-up upper GI small bowel follow-through.. * Bilateral small pleural effusions, subsegmental atelectasis at both right and left lower lobe posteriorly. * Liver cysts. * Atrophic pancreas. * 2 mm nonobstructing stone in the right kidney. * Fluid-filled structure posterior right wall of the pelvis 2.8 x 1.8 cm, it extends along the expected nerve roots from the sacrum raising the possibility of nerve sheath cyst. This could be evaluated further with follow-up MRI lumbar spine. * 4 mm nodule right lower lobe. Various management parameters for solitary pulmonary nodules are in the literature. According to the UPDATED 2017 Fleischner Society recommendations, the advised follow-up imaging for solid nodules < 6 mm is: LOW RISK PATIENT: No routine follow-up. HIGH RISK PATIENT: Optional CT at 12 months. Reference: Guidelines for Management of Incidental Pulmonary Nodules Detected on CT Images: From the Fleischner Society 2017. Assessment and Plan (1) Acute pericardial effusion: Status: Acute (2) Abdominal pain: Status: Acute Plan Pt is a 57-year-old female with a PMH significant for?gastroparesis, abdominal migraines, osteoarthritis, and recent left surgery for a SLAP tear (06/08/2022) who presents to the ED with?severe abdominal pain and intermittent chest pain. Pt will be admitted to the hospital for treatment and further evaluation of possible infectious ileitis and pericardial effusion. Question of infectious ileitis CT showing mildly dilated segments of small bowel with intermittent segments of mild wall thickening, infection or inflammatory ileitis versus mild ileus Patient with elevated WBC, ESR, C-reactive protein ED provider contacted GI who suggested treating as if infectious in nature IV antibiotics: Ceftriaxone, metronidazole, started 09/24/2022 Solu-Medrol 60mg q12 Clear liquid diet for now, advance as tolerated GI consult Ketorolac for pain management Patient has extensive autoimmune workup in the past by Rheumatology, will hold off for now on further testing while waiting GI input Pericardial effusion CT of chest showed moderate-sized pericardial effusion, EKG showing tachycardia, but no electrical alternans or low QRS voltage Pt with intermittent chest pain/pressure radiating to shoulders x4 days Echocardiogram Cardiology consult Monitor on telemetry Atelectasis CT of chest showed subsegmental atelectasis of both right and left lower lobe Incentive spirometry at bedside Mixed HLD Hold statin since rosuvastatin not on formulary and patient with myalgias from atorvastatin Abdominal migraines Continues zolmitriptan, [id number]-sezrhinx [place] Patient states she has not slept for nearly 3 days, does not routinely take any medication insomnia Ativan 0.5 mg p.r.n. Question of nerve root sheath cyst CT showing a fluid-filled structure posterior right of the pelvis Consider further evaluation with follow-up outpatient MRI of lumbar spine Full Code Attending:?Dr. Valencia DVT Prophylaxis: Lovenox Pt will require a hospitalization of at least two nights for treatment and further evaluation of possible infectious ileitis and pericardial effusion. Time Spent With Patient Time: Total time managing care of this patient today ____ minutes. Quality Stroke Does the patient have a stroke diagnosis?: No VTE Prior VTE?: No VTE Risk Level:: Medical - moderate - high VTE Device Contraindication: Treatment Not Indicated VTE Drug Contraindication: N/A - Med Ordered
[2022-09-24] MEDS: metroNIDAZOLE/NS 500 MG/100 ML PIGGYBACK 100 MG IV ×2 (14:50→21:47)
[2022-09-24] MEDS: Enoxaparin Sodium 40 MG/0.4 ML SYRINGE SUBCUT (14:51)
--- NOTE | 2022-09-24 15:21 | P.EN_ITS ---
Event Note Date of Service: 09/24/22 Event Note: GI Consult-Full note dictated. History from patient, , and EMR. Imp: I suspect she has some type of possible autoimmune systemic inflammatory process given her history, abnormal labs, and pericardial effusion. Her GI sx and CT scan aren't very definitive. She is followed by [facility] and seems to have some chronic IBS symptoms with a recent increase in constipation and then a laxative-induced diarrhea.The CT is without oral contrast, and therefore the abnormalities may not be real. She did have an unremarkable EGD, including duodenal biopsies, and Colonoscopy [place] [address] Urias. Possibilities could include Crohn's disease or a systemic vasculitis involving the GI tract. Rec: Agree with antibiotics given the elevated WBC, abdominal pain, and CT findings. NPO for now. Check stool specimens if diarrhea becomes an issue. Check autoimmune studies such as an BRAYDON, DS-DNA, and RF. I would recommend a CT- Angiogram of the abdomen to R/O any vascular disease. However, she does describe an allergy to Iodine and contrast so I will order an Abdominal MRI-Angiogram instead. She will eventually need a CT with oral contrast/enterography or Abdominal MRI with enterography to further evaluate the admitting CT findings, but she should have the MRA of the abdomen first. She may eventually need a small bowel video capsule study to further assess for small bowel disease depending on her clinical course. [facility] will assume her care in AM. D/W patient and in detail. They are comfortable with this plan. Thanks Time Spent With Patient Time: Total time managing care of this patient today ____ minutes.
[2022-09-24] MEDS: ondansetron HCL 4 MG/2 ML VIAL IVPUSH (16:48)
[2022-09-24] MEDS: methylPREDNISolone Sod Succ 125 MG/2 ML VIAL 60 MG IVPUSH (16:49)
[2022-09-24] MEDS: 0.9 % Sodium Chloride Flush 3 ML SYRINGE IVFLUSH ×2 (16:49→21:44)
[2022-09-24 18:12] LABS: COVID-19 Test Negative (Negative); IDNOW Serial# 08D9AD1C
--- NOTE | 2022-09-24 20:04 | PC.NURSE ---
Patient up from ED to [facility] at this time
--- NOTE | 2022-09-24 20:15 | PC.NURSE ---
Report given to Timoteo in [facility]. Patient resting on stretcher and looking forward to getting up to the inpatient unit.
--- NOTE | 2022-09-24 20:36 | PM.CNCAR ---
History of Present Illness History of Present Illness Date of Service: 09/24/22 Requesting physician: Irving Helton Chief complaint: Colitis, Pericardial Effusion Narrative: [age] year female with chronic irritable bowel syndrome like features to is now presenting with abdominal pain and alternation of all habits with constipation and diarrhea. She also had fevers and was generally not feeling well. With these seizures she presented emergency department. She underwent CT scan which incidentally showed a moderate pericardial effusion. She also complained of some pressure-like chest discomfort. She is saying she has been experiencing this for the last few days. This gets worse when she breathes in and also when she is laying flat versus sitting up. Features are more consistent with pericarditis. Sinus tachycardia seen on the ECG. [facility] Past Medical History Medical History Cervical radiculopathy Elevated cholesterol Fusion of spine, cervical region History of anesthesia complications Hx of chest pain Hx of gastritis Hx of migraine headaches Multinodular thyroid Osteoarthritis TMJ syndrome Family History Family History Mother Diabetes Uterine cancer Hypertension Father Diabetes Hypertension Stroke Surgical History Surgical History H/O colonoscopy History of esophagogastroduodenoscopy (EGD) History of spinal fusion Hx of cholecystectomy Hx of dilation and curettage Hx of shoulder surgery Hx of tonsillectomy Hx of tubal ligation S/P thyroid biopsy Social History Social History Household Members: Spouse Are you a primary health care coach to a significant other at home: No Do you presently have visiting nurse or other home services: No Alcohol intake: never Patient Tobacco Use Status: Former Tobacco user Quit Date: 1990 Tobacco use type: Cigarette Smoked in Last 30 Days: No Use of substances other than those prescribed or required for medical reasons: No Have you been hit, kicked, punched, or otherwise hurt by someone within the past year? If so, by whom?: No Do you feel safe in your current relationship?: Yes Is there a partner from a previous relationship who is making you feel unsafe now?: No Are you made to feel afraid or neglected: No Advance Directives: No Advance Directives Information Provided: No (declined) Do you have thoughts of harming others: None Do you have a plan to hurt others: No Plan Recently lost weight without trying: No Eating poorly because of decreased appetite: No Nutrition Risks: Acute nausea or vomiting x1 week Patient : No service: No Current occupational status: employed and unemployed Current occupation: right hand dominant Meds Allergies Allergy/AdvReac Type Severity Reaction Status Date / Time atorvastatin Allergy Mild muscle pain Verified 08/24/22 11:20 blue dye Allergy Mild Unknown Verified 08/24/22 11:20 iodine Allergy Mild Itching Verified 08/24/22 11:20 red dye Allergy Mild Unknown Verified 08/24/22 11:20 tree and shrub pollen Allergy Mild Nasal Verified 08/24/22 11:20 congestion erythromycin base Allergy Nausea and Verified 08/24/22 11:20 Vomiting stevioside [From Stevia] AdvReac Abdominal Verified 08/24/22 11:20 Pain Active Medications: Current Medications Acetaminophen/Butalbital/Caffeine (Butalb/Acetamin/Caff 50/325/40 Tablet) 1 tab PO Q8H PRN PRN Reason: MIGRAINES Cyclobenzaprine HCl (Cyclobenzaprine Hcl 10 Mg Tablet) 10 mg PO DAILY PRN PRN Reason: Spasms Dicyclomine HCl (Dicyclomine Hcl 10 Mg Capsule) 20 mg PO TID PRN PRN Reason: SPASMS Enoxaparin Sodium (Enoxaparin Sodium 40 Mg/0.4 Ml Syringe) 40 mg SUBCUT Q24H [facility] Last Admin: 09/24/22 14:51 Dose: 40 mg Metronidazole (Flagyl) 500 mg in 100 mls @ 100 mls/hr IV Q8H [facility] Last Infusion: 09/24/22 16:41 Dose: Infused Ketorolac Tromethamine (Ketorolac Tromethamine 15 Mg/Ml Vial) 15 mg IVPUSH Q6H PRN PRN Reason: Pain, Moderate (Pain Scale 4-6 Lorazepam (Lorazepam 0.5 Mg Tablet) 0.5 mg PO Q6H PRN PRN Reason: Restlessness Methylprednisolone Sodium Succinate (Methylprednisolone Sod Succ 125 Mg/2 Ml Vial) 60 mg IVPUSH Q12H [facility] Metoclopramide HCl (Metoclopramide Hcl 10 Mg Tablet) 10 mg PO TIDAC PRN PRN Reason: Spasms Non-Formulary Medication (Cyclosporine) 1 drop EYE-BOTH BID [facility] Non-Formulary Medication (Zolmitriptan) 5 mg PO DAILY PRN PRN Reason: Migraine Headache Ondansetron HCl (Ondansetron Hcl 4 Mg/2 Ml Vial) 4 mg IVPUSH Q8H PRN PRN Reason: Nausea and Vomiting Last Admin: 09/24/22 16:48 Dose: 4 mg Pharmacy Consult (Consult Rx Perform Med Rec) 1 each MISCELLANE ONCE PRN PRN Reason: Consult order Sodium Chloride (0.9 % Sodium Chloride Flush 3 Ml Syringe) 3 ml IVFLUSH QSHIFT [facility] Last Admin: 09/24/22 16:49 Dose: 3 ml Home Medications Medication Instructions Recorded Confirmed Last Taken Type cyclosporine 0.05 % eye drops in a 1 drp ophthalmic (eye) BID 11/11/20 09/24/22 Unknown History dropperette erenumab-aooe 70 mg/mL 1 syringe subcut QMONTH 11/26/20 09/24/22 09/08/22 History subcutaneous auto-injector (Aimovig Autoinjector) acyclovir 400 mg tablet 400 mg PO BID PRN Cold Sores 06/27/22 09/24/22 Unknown History cyclobenzaprine 10 mg tablet 10 mg PO DAILY PRN Spasms 06/27/22 09/24/22 Unknown History ondansetron HCl 4 mg tablet 4 mg PO DAILY PRN Nausea 06/27/22 09/24/22 Unknown History zolmitriptan 5 mg tablet 5 mg PO DAILY PRN Migraine Headache 06/27/22 09/24/22 Unknown History [id number] 1 cap PO Q8H PRN MIGRAINES 08/24/22 09/24/22 Unknown History 50 mg-325 mg-40 mg capsule dicyclomine 20 mg tablet 20 mg PO TID PRN SPASMS 09/24/22 09/24/22 Unknown History metoclopramide HCl 10 mg tablet 10 mg PO TIDAC PRN Spasms 09/24/22 09/24/22 Unknown History (Reglan) zolmitriptan 5 mg nasal spray 1 spray intranasal DAILY PRN 09/24/22 09/24/22 Unknown History (Zomig) Migraine Headache Physical Exam Vital Signs: Vital Signs: Last Vital Signs Temp 98.6 F 09/24/22 19:24 Pulse 87 09/24/22 19:24 Resp 15 09/24/22 19:24 BP 104/59 L 09/24/22 19:24 Pulse Ox 91 L 09/24/22 19:24 O2 Del Method Room Air 09/24/22 19:24 BMI result Body Mass Index 25.4 GENERAL APPEARANCE: in no acute distress, pleasant. NECK: no carotid bruit, no jugular venous distention. SKIN: no suspicious lesions, warm and dry. HEART: no murmurs, regular rate and rhythm. LUNGS: clear to auscultation bilaterally. ABDOMEN: soft, nontender. EXTREMITIES: no edema. PERIPHERAL PULSES: equal. NEUROLOGIC: No gross deficits, AAO X 3 Objective Labs and Meds 09/24/22 06:18 09/24/22 06:18 Lab results: Laboratory Results - last 24 hr 09/24/22 09/24/22 09/24/22 06:18 06:18 06:18 WBC 26.0 H RBC 4.91 Hgb 15.1 Hct 43.2 MCV 88.0 MCH 30.8 MCHC 35.0 RDW 12.7 Plt Count 323 MPV 10.6 Immature Gran % (Auto) 0.7 H Neut % (Auto) 88.9 H Lymph % (Auto) 3.4 L [place] % (Auto) 6.7 Eos % (Auto) 0.0 Baso % (Auto) 0.3 Lymph # (Auto) 0.9 L [place] # (Auto) 1.7 H Eos # (Auto) 0.0 Baso # (Auto) 0.1 Abs Immat Gran (auto) 0.18 H Absolute Neuts (auto) 23.1 H Absolute Nucleated RBC 0.000 Nucleated RBC % (auto) 0.0 Neutrophils % (Manual) Cancelled Band Neutrophils % Cancelled Lymphocytes % (Manual) Cancelled Atypical Lymphs % (Man) Cancelled Monocytes % (Manual) Cancelled Eosinophils % (Manual) Cancelled Basophils % (Manual) Cancelled Metamyelocytes % Cancelled Myelocytes % Cancelled Promyelocytes % Cancelled Blast Cells % (Manual) Cancelled Plasma Cell % (Manual) Cancelled Abs Neuts (Manual) Cancelled Lymphocytes # (Manual) Cancelled Atyp Lymphs # (Manual) Cancelled Monocytes # (Manual) Cancelled Eosinophils # (Manual) Cancelled Basophils # (Manual) Cancelled Metamyelocytes # Cancelled Myelocytes # Cancelled Promyelocytes # Cancelled Blast Cells # Cancelled Plasma Cell # (Manual) Cancelled Nucleated RBCs Cancelled Differential Comment Cancelled Hypersegmented Neuts Cancelled Smudge Cells Cancelled Toxic Granulation Cancelled Toxic Vacuolation Cancelled Dohle Bodies Cancelled Lynette Rods Cancelled WBC Morphology Comment Cancelled Platelet Estimate Cancelled Large Platelets Cancelled Giant Platelets Cancelled Plt Morphology Comment Cancelled RBC Morphology Cancelled Polychromasia Cancelled Hypochromasia Cancelled Basophilic Stippling Cancelled Microcytosis Cancelled Macrocytosis Cancelled Spherocytes Cancelled Pappenheimer Bodies Cancelled Sickle Cells Cancelled Target Cells Cancelled Tear Drop Cells Cancelled Ovalocytes Cancelled Stomatocytes Cancelled [place] Bodies Cancelled Mariano Cells Cancelled Acanthocytes (Spur) Cancelled Rouleaux Cancelled Schistocytes Cancelled ESR Sodium 140 Potassium 3.8 Chloride 106 Carbon Dioxide 18 L Anion Gap 20 BUN 14 Creatinine 0.78 Estim Creat Clear Calc 61.4 Estimated GFR > 60 POC Glucose Random Glucose 147 H Lactic Acid Calcium 9.3 Total Bilirubin 0.7 Direct Bilirubin 0.2 AST 42 H ALT 45 H Alkaline Phosphatase 96 Troponin I High Sens 5.8 C-Reactive Protein 27.64 H B-Natriuretic Peptide Total Protein 7.6 Albumin 4.1 Amylase 44 Lipase 8 Urine Color Urine Appearance Urine pH Ur Specific [place] Urine Protein Urine Glucose (UA) Urine Ketones Urine Blood Urine Nitrite Ur Leukocyte Esterase Urine RBC Urine WBC Ur Squamous Epith Cells Urine Bacteria Hyaline Casts COVID-19 (ROSS) COVID-19 Clin Com 09/24/22 09/24/22 09/24/22 06:18 06:18 07:34 WBC RBC Hgb Hct MCV MCH MCHC RDW Plt Count MPV Immature Gran % (Auto) Neut % (Auto) Lymph % (Auto) [place] % (Auto) Eos % (Auto) Baso % (Auto) Lymph # (Auto) [place] # (Auto) Eos # (Auto) Baso # (Auto) Abs Immat Gran (auto) Absolute Neuts (auto) Absolute Nucleated RBC Nucleated RBC % (auto) Neutrophils % (Manual) Band Neutrophils % Lymphocytes % (Manual) Atypical Lymphs % (Man) Monocytes % (Manual) Eosinophils % (Manual) Basophils % (Manual) Metamyelocytes % Myelocytes % Promyelocytes % Blast Cells % (Manual) Plasma Cell % (Manual) Abs Neuts (Manual) Lymphocytes # (Manual) Atyp Lymphs # (Manual) Monocytes # (Manual) Eosinophils # (Manual) Basophils # (Manual) Metamyelocytes # Myelocytes # Promyelocytes # Blast Cells # Plasma Cell # (Manual) Nucleated RBCs Differential Comment Hypersegmented Neuts Smudge Cells Toxic Granulation Toxic Vacuolation Dohle Bodies Lynette Rods WBC Morphology Comment Platelet Estimate Large Platelets Giant Platelets Plt Morphology Comment RBC Morphology Polychromasia Hypochromasia Basophilic Stippling Microcytosis Macrocytosis Spherocytes Pappenheimer Bodies Sickle Cells Target Cells Tear Drop Cells Ovalocytes Stomatocytes [place] Bodies Mariano Cells Acanthocytes (Spur) Rouleaux Schistocytes ESR 67 H Sodium Potassium Chloride Carbon Dioxide Anion Gap BUN Creatinine Estim Creat Clear Calc Estimated GFR POC Glucose Random Glucose Lactic Acid 1.7 Calcium Total Bilirubin Direct Bilirubin AST ALT Alkaline Phosphatase Troponin I High Sens C-Reactive Protein B-Natriuretic Peptide 64 Total Protein Albumin Amylase Lipase Urine Color Urine Appearance Urine pH Ur Specific [place] Urine Protein Urine Glucose (UA) Urine Ketones Urine Blood Urine Nitrite Ur Leukocyte Esterase Urine RBC Urine WBC Ur Squamous Epith Cells Urine Bacteria Hyaline Casts COVID-19 (ROSS) COVID-19 Clin Com 09/24/22 09/24/22 09/24/22 09:17 11:18 12:10 WBC RBC Hgb Hct MCV MCH MCHC RDW Plt Count MPV Immature Gran % (Auto) Neut % (Auto) Lymph % (Auto) [place] % (Auto) Eos % (Auto) Baso % (Auto) Lymph # (Auto) [place] # (Auto) Eos # (Auto) Baso # (Auto) Abs Immat Gran (auto) Absolute Neuts (auto) Absolute Nucleated RBC Nucleated RBC % (auto) Neutrophils % (Manual) Band Neutrophils % Lymphocytes % (Manual) Atypical Lymphs % (Man) Monocytes % (Manual) Eosinophils % (Manual) Basophils % (Manual) Metamyelocytes % Myelocytes % Promyelocytes % Blast Cells % (Manual) Plasma Cell % (Manual) Abs Neuts (Manual) Lymphocytes # (Manual) Atyp Lymphs # (Manual) Monocytes # (Manual) Eosinophils # (Manual) Basophils # (Manual) Metamyelocytes # Myelocytes # Promyelocytes # Blast Cells # Plasma Cell # (Manual) Nucleated RBCs Differential Comment Hypersegmented Neuts Smudge Cells Toxic Granulation Toxic Vacuolation Dohle Bodies Lynette Rods WBC Morphology Comment Platelet Estimate Large Platelets Giant Platelets Plt Morphology Comment RBC Morphology Polychromasia Hypochromasia Basophilic Stippling Microcytosis Macrocytosis Spherocytes Pappenheimer Bodies Sickle Cells Target Cells Tear Drop Cells Ovalocytes Stomatocytes [place] Bodies Mariano Cells Acanthocytes (Spur) Rouleaux Schistocytes ESR Sodium Potassium Chloride Carbon Dioxide Anion Gap BUN Creatinine Estim Creat Clear Calc Estimated GFR POC Glucose 91 Random Glucose Lactic Acid Calcium Total Bilirubin Direct Bilirubin AST ALT Alkaline Phosphatase Troponin I High Sens 9.0 D C-Reactive Protein B-Natriuretic Peptide Total Protein Albumin Amylase Lipase Urine Color Yellow Urine Appearance Clear Urine pH 5.5 Ur Specific [place] 1.020 Urine Protein 100 (2+) H Urine Glucose (UA) Negative Urine Ketones 40 Urine Blood Large (3+) H Urine Nitrite Negative Ur Leukocyte Esterase Negative Urine RBC 11-20 H Urine WBC 0-5 Ur Squamous Epith Cells 0-2 Urine Bacteria None Seen Hyaline Casts 0-2 COVID-19 (ROSS) COVID-19 Clin Com 09/24/22 17:51 WBC RBC Hgb Hct MCV MCH MCHC RDW Plt Count MPV Immature Gran % (Auto) Neut % (Auto) Lymph % (Auto) [place] % (Auto) Eos % (Auto) Baso % (Auto) Lymph # (Auto) [place] # (Auto) Eos # (Auto) Baso # (Auto) Abs Immat Gran (auto) Absolute Neuts (auto) Absolute Nucleated RBC Nucleated RBC % (auto) Neutrophils % (Manual) Band Neutrophils % Lymphocytes % (Manual) Atypical Lymphs % (Man) Monocytes % (Manual) Eosinophils % (Manual) Basophils % (Manual) Metamyelocytes % Myelocytes % Promyelocytes % Blast Cells % (Manual) Plasma Cell % (Manual) Abs Neuts (Manual) Lymphocytes # (Manual) Atyp Lymphs # (Manual) Monocytes # (Manual) Eosinophils # (Manual) Basophils # (Manual) Metamyelocytes # Myelocytes # Promyelocytes # Blast Cells # Plasma Cell # (Manual) Nucleated RBCs Differential Comment Hypersegmented Neuts Smudge Cells Toxic Granulation Toxic Vacuolation Dohle Bodies Lynette Rods WBC Morphology Comment Platelet Estimate Large Platelets Giant Platelets Plt Morphology Comment RBC Morphology Polychromasia Hypochromasia Basophilic Stippling Microcytosis Macrocytosis Spherocytes Pappenheimer Bodies Sickle Cells Target Cells Tear Drop Cells Ovalocytes Stomatocytes [place] Bodies Mariano Cells Acanthocytes (Spur) Rouleaux Schistocytes ESR Sodium Potassium Chloride Carbon Dioxide Anion Gap BUN Creatinine Estim Creat Clear Calc Estimated GFR POC Glucose Random Glucose Lactic Acid Calcium Total Bilirubin Direct Bilirubin AST ALT Alkaline Phosphatase Troponin I High Sens C-Reactive Protein B-Natriuretic Peptide Total Protein Albumin Amylase Lipase Urine Color Urine Appearance Urine pH Ur Specific [place] Urine Protein Urine Glucose (UA) Urine Ketones Urine Blood Urine Nitrite Ur Leukocyte Esterase Urine RBC Urine WBC Ur Squamous Epith Cells Urine Bacteria Hyaline Casts COVID-19 (ROSS) Negative COVID-19 Clin Com See Note Imaging Radiologist's impression: Impressions Chest X-Ray 09/24/22 07:47 IMPRESSION: Suspected left basilar atelectasis. Abdomen/Pelvis CT 09/24/22 09:00 IMPRESSION: * Circumferential moderate size pericardial effusion. * Mildly dilated segments of small bowel with intermittent segments of mild wall thickening, without high-grade obstruction, pattern might be due to infection or inflammatory ileitis and/or mild ileus. Evaluation is limited due to lack of oral and IV contrast and crowding of bowel loops. If patient remain symptomatic, consider correlation with follow-up upper GI small bowel follow-through.. * Bilateral small pleural effusions, subsegmental atelectasis at both right and left lower lobe posteriorly. * Liver cysts. * Atrophic pancreas. * 2 mm nonobstructing stone in the right kidney. * Fluid-filled structure posterior right wall of the pelvis 2.8 x 1.8 cm, it extends along the expected nerve roots from the sacrum raising the possibility of nerve sheath cyst. This could be evaluated further with follow-up MRI lumbar spine. * 4 mm nodule right lower lobe. Various management parameters for solitary pulmonary nodules are in the literature. According to the UPDATED 2017 Fleischner Society recommendations, the advised follow-up imaging for solid nodules < 6 mm is: LOW RISK PATIENT: No routine follow-up. HIGH RISK PATIENT: Optional CT at 12 months. Reference: Guidelines for Management of Incidental Pulmonary Nodules Detected on CT Images: From the Fleischner Society 2017. Chest CT 09/24/22 09:00 IMPRESSION: * Circumferential moderate size pericardial effusion. * Mildly dilated segments of small bowel with intermittent segments of mild wall thickening, without high-grade obstruction, pattern might be due to infection or inflammatory ileitis and/or mild ileus. Evaluation is limited due to lack of oral and IV contrast and crowding of bowel loops. If patient remain symptomatic, consider correlation with follow-up upper GI small bowel follow-through.. * Bilateral small pleural effusions, subsegmental atelectasis at both right and left lower lobe posteriorly. * Liver cysts. * Atrophic pancreas. * 2 mm nonobstructing stone in the right kidney. * Fluid-filled structure posterior right wall of the pelvis 2.8 x 1.8 cm, it extends along the expected nerve roots from the sacrum raising the possibility of nerve sheath cyst. This could be evaluated further with follow-up MRI lumbar spine. * 4 mm nodule right lower lobe. Various management parameters for solitary pulmonary nodules are in the literature. According to the UPDATED 2017 Fleischner Society recommendations, the advised follow-up imaging for solid nodules < 6 mm is: LOW RISK PATIENT: No routine follow-up. HIGH RISK PATIENT: Optional CT at 12 months. Reference: Guidelines for Management of Incidental Pulmonary Nodules Detected on CT Images: From the Fleischner Society 2017. Assessment and Plan (1) Acute pericardial effusion: Status: Acute Plan Pleasant 57-year-old female who is presenting with abdominal pain diarrhea and constipation. She has been experiencing some irritable bowel syndrome like symptoms for some time. She has been seen by GI and is being treated for colitis. The same time she has been noticed to have some pericardial effusion also. By CT chest moderate in size. We need echocardiography to document the size and to see if there is any tamponade like physiology. Clinically she has tachycardia but also has significant abdominal pain and inflammatory process in the abdomen. It is possible that she had viral illness which has affected GI tract as well as the pericardium. In any case currently the care is supportive. I was thinking about starting her on colchicine but due to her GI issues ongoing I have not when he started. She has significant pressure in the chest then we can consider giving her some Toradol. Thank you for allowing me to participate in the care of your patient. Please feel free to contact me if you have any questions. Time Spent With Patient Time: Total time managing care of this patient today ____ minutes. Procedures Date of Service Date of Service: 09/24/22
[2022-09-24] MEDS: LORazepam 0.5 MG TABLET PO (21:42)
--- NOTE | 2022-09-25 01:10 | CONS_ITS ---
DATE OF SERVICE: 09/24/2022 REASON FOR CONSULTATION: Abdominal pain and abnormal CT scan of small bowel. HISTORY OF PRESENT ILLNESS: This has been obtained from the patient, her , and the medical record. The patient is a 57-year-old generally healthy female who describes a long-standing history of some irritable bowel syndrome with intermittent constipation and some laxative-induced diarrhea. However, generally these problems have not been particularly significant up until the past couple of weeks. She did undergo an upper endoscopy and colonoscopy in November 2020, with Dr. Urias, which was not particularly revealing. There was no evidence of any inflammatory bowel disease, microscopic colitis, celiac disease, nor H pylori. There were no significant polyps nor any ulcerative disease. The patient describes a history of migraines for which she takes an injectable medication once a month. She describes that this will usually cause some constipation. She took the medication about 2 weeks ago and seems to have had worse constipation after that for which she eventually took some laxatives with subsequent diarrhea. However in general, her GI symptoms have remained problematic since then with increasing abdominal pain and what she felt was dehydration. This prompted her to come to the ER. In the ER, her work[place] [address], a sed rate of 67, and a C reactive protein of 27.6. Other workup has revealed a pericardial effusion, which is new compared to an echocardiogram from last year. Her CT without any oral contrast revealed some mild and nonspecific changes of some areas of small bowel, describing some mild dilatation and/or thickening without any definitive evidence of inflammation nor any bowel obstruction. There was no description of inflammation in the mesentery. Since in the ER, she has been afebrile. She reports that her abdominal discomfort has improved, though it was still was present to some degree. There has been no vomiting nor diarrhea since arrival in the ER. She denies any significant heartburn or dysphagia. She denies any signs of jaundice nor significant weight loss. She denies any hematochezia nor melena. She denies any known family history of Crohn's disease, celiac disease, nor ulcerative colitis. She denies any known family history of colorectal cancer. MEDICATIONS: Home medications; butalbital with acetaminophen and caffeine p.r.n. migraines, cyclobenzaprine p.r.n., cyclosporine eye drops, dicyclomine p.r.n., Reglan p.r.n., Zofran p.r.n., rosuvastatin, zolmitriptan p.r.n. Medications here in the hospital include IV ceftriaxone, butalbital with acetaminophen and caffeine, cyclobenzaprine p.r.n., cyclosporine eye drops, dicyclomine p.r.n., Lovenox, Ketorolac p.r.n., lorazepam p.r.n., methylprednisolone 60 mg IV q. 12 hours, Reglan p.r.n., IV Flagyl, Zofran p.r.n., and zolmitriptan p.r.n. PAST MEDICAL HISTORY: Migraines, nonrevealing upper endoscopy and colonoscopy in November 2020 as above, irritable bowel syndrome, cervical spine surgery. She describes neck surgery for thyroglossal cysts, cholecystectomy, tubal ligation. She denies history of [place], diabetes, stroke, lung disease, or known kidney disease. She has also had shoulder surgery. SOCIAL HISTORY: She is nonsmoker, nor uses any significant amounts of alcohol. 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 She is . FAMILY HISTORY: Noncontributory as above. REVIEW OF SYSTEMS: CONSTITUTIONAL: For the past couple of weeks, she has had some increasing GI symptoms as above with some aches and pains in particularly the shoulder and chest area. SKIN: Without rash or pruritus. CARDIAC: She does have some chest discomfort. PULMONARY: No coughing, no hemoptysis. GI: As above. GENITOURINARY: No dysuria, no hematuria. NEUROLOGIC: No headaches other than occasional migraines. No seizures. PSYCHIATRIC: Negative. PHYSICAL EXAMINATION: GENERAL: The patient is a pleasant, alert, comfortable appearing female. SKIN: Warm and dry. Nonjaundiced. HEENT: Anicteric sclerae. NECK: Supple without lymphadenopathy. CHEST: Clear. CARDIAC: Normal S1, S2. ABDOMEN: Soft. Normal bowel sounds. Nondistended. She does have some mild diffuse tenderness without mass, rebound, or guarding. EXTREMITIES: Without edema. NEUROLOGIC: She is alert and oriented. LABORATORY DATA: White blood cell count of 2600, hemoglobin 15.1, platelets 323,000. Sed rate is 67. Normal electrolytes. BUN 14, creatinine 0.8, lactic acid level 1.7. AST 42, ALT 45, total bilirubin 0.7, alk phos 96. C reactive protein 27.6. Albumin 4.1. Amylase 44, lactate is 8. In 2020, she had a negative double-stranded DNA antibody and normal C3 and C4 complement levels. In 2020, she had negative hepatitis A, B, and C studies and negative Lyme disease studies. Urinalysis shows 2+ protein, 3+ blood, 11-20 rbc's, with no bacteria. Her CT scans of chest and abdomen is notable for a moderate sized pericardial effusion, liver cysts, the mildly dilated segments of small bowel with some mild wall thickening, but without obstruction or definitive inflammation, and no intraabdominal fluid, no free air, bilateral small pleural effusions. IMPRESSION: Given the patient's clinical history, I suspect this represents a more systemic process rather than primary GI process. The findings on the CT scan seems to be nonspecific particularly since there was no oral contrast administered and there was no definitive significant inflammation. This would tend to go against any small bowel inflammatory process such as Crohn disease. I doubt this represents any type of infectious process given no significant diarrhea other than when she took her laxatives. She may have some autoimmune systemic inflammatory process given the clinical history, the abnormal laboratories in regard to the sed rate and C reactive protein, and pericardial effusion. Again, I doubt, this represents inflammatory bowel disease, particularly with the negative upper endoscopy and colonoscopy in 2020. Given the high inflammatory markers, some type vasculitis could be contributing to this in regard to GI tract. Although, I doubt a bacterial process, I would agree with the antibiotics for the time being, given the elevated white count and abdominal pain. I would keep her n.p.o. for the time being. If diarrhea becomes an issue, stool specimens can be sent to rule out any type of enteric infection. I will check autoimmune studies such as BRAYDON and double-stranded DNA again. I have ordered an MRI of the abdomen with angiography since she describes an iodine allergy and I do not think she would be a good candidate for a CT scan with angiography. I would recommend Cardiology evaluation in regard to the pericardial effusion. She may eventually need a small bowel video capsule study for further evaluation of the small bowel depending upon her workup and clinical course. I do not think any type of endoscopic evaluation is presently required. This is all discussed with the patient and her in detail and they are comfortable with the plan. Thank you for the consultation. MD MARIA VICTORIA Blas/JOSH / [id number] MTDD
[2022-09-25] MEDS: Acetaminophen 325 MG TABLET 650 MG PO ×2 (02:32→23:35)
[2022-09-25] MEDS: Dicyclomine HCl 10 MG CAPSULE 20 MG PO ×2 (02:32→14:59)
[2022-09-25 04:00] VITALS: BP 103/66; PULSE 103; RESP 18; TEMP 36.6; O2SAT 93
[2022-09-25 04:55] LABS: Hematocrit 33.5 % (37.0-47.0); Hemoglobin 11.5 g/dl (12.0-16.0); Mean Corpuscular HGB Conc 34.3 g/dl (31.0-35.0); Mean Corpuscular Hemoglobin 30.6 pg (27.0-33.0); Mean Corpuscular Volume 89.1 fL (80.0-98.0); Mean Platelet Volume 10.8 fL (9.4-12.3); Platelet Count 263 X10*3/uL (160-400); Red Blood Count 3.76 X10*6/uL (4.20-5.50); Red Cell Distribution Width 12.7 % (11.0-16.0); White Blood Count 14.2 X10*3/uL (4.8-10.8)
[2022-09-25 05:11] LABS: Anion Gap 12 (12-20); Blood Urea Nitrogen 14 mg/dL (9-16); Calcium 8.9 mg/dL (8.4-10.2); Carbon Dioxide 25 mmol/L (22-29); Chloride 111 mmol/L (96-108); Creatinine Clr Calc Pharmacy 75.5; Estimated Glomerular Filt Rate > 60; Glucose Fasting 123 mg/dL (60-99); Potassium 4.2 mmol/L (3.3-5.1); Rheumatoid Factor < 13.0 IU/mL (<15.0); Sodium 144 mmol/L (135-145)
[2022-09-25] MEDS: metroNIDAZOLE/NS 500 MG/100 ML PIGGYBACK 100 MG IV ×3 (05:49→23:36)
--- NOTE | 2022-09-25 07:00 | CA_ITS ---
Transthoracic Echocardiogram Patient (Last, First, Middle): Cookie Nielsen, Gender: Female Date of : 1965 Age: 57 Procedure Date: 09/25/2022 Procedure Type: Transthoracic Echocardiogram Location: [facility] [place] Height: 157.48 cm Weight: 62.6 kg BSA: 1.63 m2 Heart Rate: bpm BP: 103 / 66 mmHg Storage Engineer: CE Referring MD: Irving HAMLIN Fabrication Mig Welder: Moshe Rhodes MD Symptoms: Pericardial effusion Study Quality: Adequate ECG Rhythm: Sinus Conclusions: - Small circumferential pericardial effusion Findings Left Ventricle The left ventricular systolic function is normal. Venous The inferior vena cava is normal in size and collapses greater than 50% with inspiration. Pericardium/Pleural There is a small circumferential pericardial effusion. There are no definitive echocardiographic findings of tamponade physiology. There are no definitive echocardiographic findings of constrictive physiology. No discernable variation of the mitral valve Doppler velocities with respiration. Prior Study Comparison Changes noted compared to prior study dated: 01/31/2022. small pericardial effusion is present Measurements 2D Linear Measurements LVOT Diam: 2.10 3.0+(-)1.3 cm Mitral Valve MV Pk E: 0.92 MV PK A: 0.49 MV Decel Time: 211.00 E/A: 1.90 E'Lateral: 10.60 E'Medial: 8.81 E/E' Med: 10.40 E/E' Lat: 8.70 PHT: 62.00 MVA PHT: 3.55 Decel [place]: 4.34 LVOT LVOT Pk Alonso: 1.02 LVOT Mn Alonso: 0.74 LVOT VTI: 0.25 LVOT Pk Grad: 4.00 LVOT Mn Grad: 2.00 LVOT Diam: 2.10 LVOT Area: 3.46 Diastolic Function MV Pk E: 0.92 MV Pk A: 0.49 E/A: 1.90 E'Medial: 8.81 E/E' Med: 10.40 E' Laterial: 10.60 E/E' Lat: 8.70 Tricuspid Valve RA Press: 3.00 Updated in Other Vendor System with Status of Final Moshe Rhodes MD electronically signed on 09/25/2022 10:58:38 AM with status of Final
--- NOTE | 2022-09-25 07:33 | HO.PM.IMPN ---
Subjective Subjective Date of Service: 09/25/22 Interval History: f/u on enteritis, pericardial effusion interim history: she feels much better today, no pain in the shoulder, no more diarrhea, more enger Physical Exam Vital Signs: Vital Signs: Last Vital Signs Temp 97.9 F 09/25/22 04:00 Pulse 103 H 09/25/22 04:00 Resp 18 09/25/22 04:00 BP 103/66 09/25/22 04:00 Pulse Ox 93 09/25/22 04:00 O2 Del Method Room Air 09/25/22 04:00 BMI result Body Mass Index 25.4 Const: Other: General: AO X 3, no acute distress Resp: CTA bilateral CVS: S1,S2,RRR GI: +BS, NT, no distention Skin: No rash Neuro: motor grossly intact Psych: appropriate affect Objective Data Active Medications Acetaminophen (Acetaminophen 325 Mg Tablet) 650 mg PO Q6H PRN PRN Reason: Pain, Mild (Pain Scale 1-3) Last Admin: 09/25/22 02:32 Dose: 650 mg Documented By: VENUS Acetaminophen/Butalbital/Caffeine (Butalb/Acetamin/Caff 50/325/40 Tablet) 1 tab PO Q8H PRN PRN Reason: MIGRAINES Cyclobenzaprine HCl (Cyclobenzaprine Hcl 10 Mg Tablet) 10 mg PO DAILY PRN PRN Reason: Spasms Dicyclomine HCl (Dicyclomine Hcl 10 Mg Capsule) 20 mg PO TID PRN PRN Reason: SPASMS Last Admin: 09/25/22 02:32 Dose: 20 mg Documented By: VENUS Enoxaparin Sodium (Enoxaparin Sodium 40 Mg/0.4 Ml Syringe) 40 mg SUBCUT Q24H [facility] Last Admin: 09/24/22 14:51 Dose: 40 mg Documented By: MARIA INES Metronidazole (Flagyl) 500 mg in 100 mls @ 100 mls/hr IV Q8H [facility] Last Admin: 09/25/22 05:49 Dose: 100 mls/hr Documented By: VENUS Ketorolac Tromethamine (Ketorolac Tromethamine 15 Mg/Ml Vial) 15 mg IVPUSH Q6H PRN PRN Reason: Pain, Moderate (Pain Scale 4-6 Last Admin: 09/24/22 20:41 Dose: 15 mg Documented By: CHIRAG Lorazepam (Lorazepam 0.5 Mg Tablet) 0.5 mg PO Q6H PRN PRN Reason: Restlessness Last Admin: 09/24/22 21:42 Dose: 0.5 mg Documented By: VENUS Methylprednisolone Sodium Succinate (Methylprednisolone Sod Succ 125 Mg/2 Ml Vial) 60 mg IVPUSH Q12H [facility] Metoclopramide HCl (Metoclopramide Hcl 10 Mg Tablet) 10 mg PO TIDAC PRN PRN Reason: Spasms Non-Formulary Medication (Cyclosporine) 1 drop EYE-BOTH BID [facility] Non-Formulary Medication (Zolmitriptan) 5 mg PO DAILY PRN PRN Reason: Migraine Headache Ondansetron HCl (Ondansetron Hcl 4 Mg/2 Ml Vial) 4 mg IVPUSH Q8H PRN PRN Reason: Nausea and Vomiting Last Admin: 09/24/22 16:48 Dose: 4 mg Documented By: MARIA INES Pharmacy Consult (Consult Rx Perform Med Rec) 1 each MISCELLANE ONCE PRN PRN Reason: Consult order Sodium Chloride (0.9 % Sodium Chloride Flush 3 Ml Syringe) 3 ml IVFLUSH QSHIFT [facility] Last Admin: 09/24/22 21:44 Dose: 3 ml Documented By: VENUS Labs 09/25/22 03:51 09/25/22 03:51 Labs: Laboratory Results - last 24 hr 09/24/22 09/24/22 09/24/22 06:18 06:18 06:18 MCV 88.0 MCH 30.8 MCHC 35.0 RDW 12.7 Plt Count 323 MPV 10.6 Immature Gran % (Auto) 0.7 H Neut % (Auto) 88.9 H Lymph % (Auto) 3.4 L [place] % (Auto) 6.7 Eos % (Auto) 0.0 Baso % (Auto) 0.3 Lymph # (Auto) 0.9 L [place] # (Auto) 1.7 H Eos # (Auto) 0.0 Baso # (Auto) 0.1 Abs Immat Gran (auto) 0.18 H Absolute Neuts (auto) 23.1 H Absolute Nucleated RBC 0.000 Nucleated RBC % (auto) 0.0 Neutrophils % (Manual) Cancelled Band Neutrophils % Cancelled Lymphocytes % (Manual) Cancelled Atypical Lymphs % (Man) Cancelled Monocytes % (Manual) Cancelled Eosinophils % (Manual) Cancelled Basophils % (Manual) Cancelled Metamyelocytes % Cancelled Myelocytes % Cancelled Promyelocytes % Cancelled Blast Cells % (Manual) Cancelled Plasma Cell % (Manual) Cancelled Abs Neuts (Manual) Cancelled Lymphocytes # (Manual) Cancelled Atyp Lymphs # (Manual) Cancelled Monocytes # (Manual) Cancelled Eosinophils # (Manual) Cancelled Basophils # (Manual) Cancelled Metamyelocytes # Cancelled Myelocytes # Cancelled Promyelocytes # Cancelled Blast Cells # Cancelled Plasma Cell # (Manual) Cancelled Nucleated RBCs Cancelled Differential Comment Cancelled Hypersegmented Neuts Cancelled Smudge Cells Cancelled Toxic Granulation Cancelled Toxic Vacuolation Cancelled Dohle Bodies Cancelled Lynette Rods Cancelled WBC Morphology Comment Cancelled Platelet Estimate Cancelled Large Platelets Cancelled Giant Platelets Cancelled Plt Morphology Comment Cancelled RBC Morphology Cancelled Polychromasia Cancelled Hypochromasia Cancelled Basophilic Stippling Cancelled Microcytosis Cancelled Macrocytosis Cancelled Spherocytes Cancelled Pappenheimer Bodies Cancelled Sickle Cells Cancelled Target Cells Cancelled Tear Drop Cells Cancelled Ovalocytes Cancelled Stomatocytes Cancelled [place] Bodies Cancelled Mariano Cells Cancelled Acanthocytes (Spur) Cancelled Rouleaux Cancelled Schistocytes Cancelled ESR Anion Gap Estim Creat Clear Calc Estimated GFR POC Glucose Fasting Glucose Lactic Acid Calcium Total Bilirubin 0.7 Direct Bilirubin 0.2 AST 42 H ALT 45 H Alkaline Phosphatase 96 Troponin I High Sens 5.8 C-Reactive Protein 27.64 H B-Natriuretic Peptide Total Protein 7.6 Albumin 4.1 Amylase 44 Lipase 8 Urine Color Urine Appearance Urine pH Ur Specific Johnson Urine Protein Urine Glucose (UA) Urine Ketones Urine Blood Urine Nitrite Ur Leukocyte Esterase Urine RBC Urine WBC Ur Squamous Epith Cells Urine Bacteria Hyaline Casts Rheumatoid Factor COVID-19 (ROSS) COVID-19 Clin Com 09/24/22 09/24/22 09/24/22 06:18 06:18 07:34 MCV MCH MCHC RDW Plt Count MPV Immature Gran % (Auto) Neut % (Auto) Lymph % (Auto) [place]agoner % (Auto) Eos % (Auto) Baso % (Auto) Lymph # (Auto) [place]er # (Auto) Eos # (Auto) Baso # (Auto) Abs Immat Gran (auto) Absolute Neuts (auto) Absolute Nucleated RBC Nucleated RBC % (auto) Neutrophils % (Manual) Band Neutrophils % Lymphocytes % (Manual) Atypical Lymphs % (Man) Monocytes % (Manual) Eosinophils % (Manual) Basophils % (Manual) Metamyelocytes % Myelocytes % Promyelocytes % Blast Cells % (Manual) Plasma Cell % (Manual) Abs Neuts (Manual) Lymphocytes # (Manual) Atyp Lymphs # (Manual) Monocytes # (Manual) Eosinophils # (Manual) Basophils # (Manual) Metamyelocytes # Myelocytes # Promyelocytes # Blast Cells # Plasma Cell # (Manual) Nucleated RBCs Differential Comment Hypersegmented Neuts Smudge Cells Toxic Granulation Toxic Vacuolation Dohle Bodies Lynette Rods WBC Morphology Comment Platelet Estimate Large Platelets Giant Platelets Plt Morphology Comment RBC Morphology Polychromasia Hypochromasia Basophilic Stippling Microcytosis Macrocytosis Spherocytes Pappenheimer Bodies Sickle Cells Target Cells Tear Drop Cells Ovalocytes Stomatocytes [place] Bodies Mariano Cells Acanthocytes (Spur) Rouleaux Schistocytes ESR 67 H Anion Gap Estim Creat Clear Calc Estimated GFR POC Glucose Fasting Glucose Lactic Acid 1.7 Calcium Total Bilirubin Direct Bilirubin AST ALT Alkaline Phosphatase Troponin I High Sens C-Reactive Protein B-Natriuretic Peptide 64 Total Protein Albumin Amylase Lipase Urine Color Urine Appearance Urine pH Ur Specific Johnson Urine Protein Urine Glucose (UA) Urine Ketones Urine Blood Urine Nitrite Ur Leukocyte Esterase Urine RBC Urine WBC Ur Squamous Epith Cells Urine Bacteria Hyaline Casts Rheumatoid Factor COVID-19 (ROSS) COVID-19 Clin Com 09/24/22 09/24/22 09/24/22 09:17 11:18 12:10 MCV MCH MCHC RDW Plt Count MPV Immature Gran % (Auto) Neut % (Auto) Lymph % (Auto) [place]agoner % (Auto) Eos % (Auto) Baso % (Auto) Lymph # (Auto) [place]er # (Auto) Eos # (Auto) Baso # (Auto) Abs Immat Gran (auto) Absolute Neuts (auto) Absolute Nucleated RBC Nucleated RBC % (auto) Neutrophils % (Manual) Band Neutrophils % Lymphocytes % (Manual) Atypical Lymphs % (Man) Monocytes % (Manual) Eosinophils % (Manual) Basophils % (Manual) Metamyelocytes % Myelocytes % Promyelocytes % Blast Cells % (Manual) Plasma Cell % (Manual) Abs Neuts (Manual) Lymphocytes # (Manual) Atyp Lymphs # (Manual) Monocytes # (Manual) Eosinophils # (Manual) Basophils # (Manual) Metamyelocytes # Myelocytes # Promyelocytes # Blast Cells # Plasma Cell # (Manual) Nucleated RBCs Differential Comment Hypersegmented Neuts Smudge Cells Toxic Granulation Toxic Vacuolation Dohle Bodies Lynette Rods WBC Morphology Comment Platelet Estimate Large Platelets Giant Platelets Plt Morphology Comment RBC Morphology Polychromasia Hypochromasia Basophilic Stippling Microcytosis Macrocytosis Spherocytes Pappenheimer Bodies Sickle Cells Target Cells Tear Drop Cells Ovalocytes Stomatocytes [place] Bodies Mariano Cells Acanthocytes (Spur) Rouleaux Schistocytes ESR Anion Gap Estim Creat Clear Calc Estimated GFR POC Glucose 91 Fasting Glucose Lactic Acid Calcium Total Bilirubin Direct Bilirubin AST ALT Alkaline Phosphatase Troponin I High Sens 9.0 D C-Reactive Protein B-Natriuretic Peptide Total Protein Albumin Amylase Lipase Urine Color Yellow Urine Appearance Clear Urine pH 5.5 Ur Specific Johnson 1.020 Urine Protein 100 (2+) H Urine Glucose (UA) Negative Urine Ketones 40 Urine Blood Large (3+) H Urine Nitrite Negative Ur Leukocyte Esterase Negative Urine RBC 11-20 H Urine WBC 0-5 Ur Squamous Epith Cells 0-2 Urine Bacteria None Seen Hyaline Casts 0-2 Rheumatoid Factor COVID-19 (ROSS) COVID-19 Clin Com 09/24/22 09/25/22 09/25/22 17:51 03:51 03:51 MCV 89.1 MCH 30.6 MCHC 34.3 RDW 12.7 Plt Count 263 MPV 10.8 Immature Gran % (Auto) Neut % (Auto) Lymph % (Auto) W[place]er % (Auto) Eos % (Auto) Baso % (Auto) Lymph # (Auto) Wagoner # (Auto) Eos # (Auto) Baso # (Auto) Abs Immat Gran (auto) Absolute Neuts (auto) Absolute Nucleated RBC 0.000 Nucleated RBC % (auto) 0.0 Neutrophils % (Manual) Band Neutrophils % Lymphocytes % (Manual) Atypical Lymphs % (Man) Monocytes % (Manual) Eosinophils % (Manual) Basophils % (Manual) Metamyelocytes % Myelocytes % Promyelocytes % Blast Cells % (Manual) Plasma Cell % (Manual) Abs Neuts (Manual) Lymphocytes # (Manual) Atyp Lymphs # (Manual) Monocytes # (Manual) Eosinophils # (Manual) Basophils # (Manual) Metamyelocytes # Myelocytes # Promyelocytes # Blast Cells # Plasma Cell # (Manual) Nucleated RBCs Differential Comment Hypersegmented Neuts Smudge Cells Toxic Granulation Toxic Vacuolation Dohle Bodies Lynette Rods WBC Morphology Comment Platelet Estimate Large Platelets Giant Platelets Plt Morphology Comment RBC Morphology Polychromasia Hypochromasia Basophilic Stippling Microcytosis Macrocytosis Spherocytes Pappenheimer Bodies Sickle Cells Target Cells Tear Drop Cells Ovalocytes Stomatocytes [place] Bodies [place] Cells Acanthocytes (Spur) Rouleaux Schistocytes ESR Anion Gap 12 Estim Creat Clear Calc 75.5 Estimated GFR > 60 POC Glucose Fasting Glucose 123 H Lactic Acid Calcium 8.9 Total Bilirubin Direct Bilirubin AST ALT Alkaline Phosphatase Troponin I High Sens C-Reactive Protein B-Natriuretic Peptide Total Protein Albumin Amylase Lipase Urine Color Urine Appearance Urine pH Ur Specific Johnson Urine Protein Urine Glucose (UA) Urine Ketones Urine Blood Urine Nitrite Ur Leukocyte Esterase Urine RBC Urine WBC Ur Squamous Epith Cells Urine Bacteria Hyaline Casts Rheumatoid Factor < 13.0 COVID-19 (ROSS) Negative COVID-19 Clin Com See Note Assessment and Plan (1) Abdominal pain: Status: Acute (2) Acute pericardial effusion: Status: Acute (3) Ileitis: Status: Acute Plan 57-year-old female with a PMH significant for?gastroparesis, abdominal migraines, osteoarthritis, and recent left surgery for a SLAP tear (06/08/2022) who presents to the ED with?severe abdominal pain and intermittent chest pain. Pt will be admitted to the hospital for treatment and further evaluation of possible infectious ileitis and pericardial effusion. Question of infectious ileitis vs autoimmune process CT showing mildly dilated segments of small bowel with intermittent segments of mild wall thickening, infection or inflammatory ileitis versus mild ileus Patient with elevated WBC, ESR, C-reactive protein--WBC is significantly down today, I think because of steroid and not ncessary the antibiotics -for now continue IV steroid, Antibiotics for now. Was seen by GI and was going to do MRI but that is on hold for now. Rheumotology work up with BRAYDON, RF, Ds-DNA, advance diet to liquid today, Pericardial effusion seen on CT--again maybe related to some autoimmune process, continue steroid. Cardiology following, will have an echo to guide further management. NO sings of teamponade Atelectasis--IC Mixed HLD Hold statin since rosuvastatin not on formulary and patient with myalgias from atorvastatin Abdominal migraines Continues zolmitriptan, [id number] Insominia Patient states she has not slept for nearly 3 days, does not routinely take any medication insomnia Ativan 0.5 mg p.r.n. Question of nerve root sheath cyst CT showing a fluid-filled structure posterior right of the pelvis Consider further evaluation with follow-up outpatient MRI of lumbar spine Full Code Attending:?Dr. Valencia DVT Prophylaxis: Lovenox Need for inaptient: on going work up for above Time Spent With Patient Time: Total time managing care of this patient today ____ minutes. Quality Stroke Does the patient have a stroke diagnosis?: No VTE Prior VTE?: No VTE Risk Level:: Medical - moderate - high VTE Device Contraindication: Treatment Not Indicated VTE Drug Contraindication: N/A - Med Ordered
[2022-09-25 07:46] VITALS: BP 105/58; PULSE 85; RESP 16; TEMP 37; O2SAT 97
[2022-09-25] MEDS: Butalb/Acetamin/Caff 50/325/40 TABLET 1 TAB PO (07:50)
[2022-09-25] MEDS: methylPREDNISolone Sod Succ 125 MG/2 ML VIAL 60 MG IVPUSH ×2 (08:51→20:34)
[2022-09-25] MEDS: Lactated Ringers 1,000 ML 125 ML IVCONT (08:55)
--- NOTE | 2022-09-25 10:44 | MHC.CM.PN ---
EMR REVIEWED, CM MET W/PT WHO IS A&OX4, PT REPORTS SHE LIVES W/, IS A [facility] PRIMARY CARE PROVIDER, PT DENIES USE OF DME OR HOME SERVICES, PT DENIES NEED FOR HOME SERVICES AND WILL BE RETURNING TO WORK. PT VERIFIES PHARMACY IS [facility] IN [place], PCP IS [facility], FULLY VACCINATED AGAINST COVID19 W/ALL PFIZER VACCINES AND REPORTS NILSA MOLINA [phone] IS PT'S HCP, PT REPORTS SHE WILL HAVE HCP UPLOADED TO [facility] AFTER D/C. ANTIC D/C LATER TODAY VS TOMORROW 5/2 W/FAMILY FOR TRANSPORT.
--- NOTE | 2022-09-25 10:58 | PM.PNCARD ---
Subjective Subjective Date of Service: 09/25/22 Principal diagnosis: Pericardial effusion Interval history: Patient was noted to have pericardial effusion on CT scan. No cardiac symptoms. Mostly abdominal symptoms and findings suggestive of inflammatory colitis as per her. This knowing benign again stability arrhythmias noted. Echocardiogram with bedside shows small pericardial effusion without any hemodynamic compromise Review of Systems Review of Systems Yes all other systems are reviewed and are negative Physical Exam Vital Signs: Last Vital Signs Temp 98.6 F 09/25/22 07:46 Pulse 85 09/25/22 07:46 Resp 16 09/25/22 07:46 BP 105/58 L 09/25/22 07:46 Pulse Ox 97 09/25/22 07:46 O2 Del Method Room Air 09/25/22 07:46 BMI result Body Mass Index 25.4 GENERAL APPEARANCE: in no acute distress, pleasant. NECK: no carotid bruit, no jugular venous distention. SKIN: no suspicious lesions, warm and dry. HEART: no murmurs, regular rate and rhythm. LUNGS: clear to auscultation bilaterally. ABDOMEN: soft, nontender. EXTREMITIES: no edema. PERIPHERAL PULSES: equal. NEUROLOGIC: No gross deficits, AAO X 3 Objective Labs and Meds 09/25/22 03:51 09/25/22 03:51 Lab results: Laboratory Results - last 24 hr 09/24/22 09/24/22 09/24/22 06:18 11:18 12:10 WBC RBC Hgb Hct MCV MCH MCHC RDW Plt Count MPV Absolute Nucleated RBC Nucleated RBC % (auto) Sodium Potassium Chloride Carbon Dioxide Anion Gap BUN Creatinine Estim Creat Clear Calc Estimated GFR POC Glucose 91 Fasting Glucose Calcium Total Bilirubin 0.7 Direct Bilirubin 0.2 AST 42 H ALT 45 H Alkaline Phosphatase 96 Troponin I High Sens 9.0 D Total Protein 7.6 Albumin 4.1 Amylase 44 Lipase 8 Rheumatoid Factor COVID-19 (ROSS) COVID-19 Clin Com 09/24/22 09/25/22 09/25/22 17:51 03:51 03:51 WBC 14.2 H RBC 3.76 L D Hgb 11.5 L D Hct 33.5 L D MCV 89.1 MCH 30.6 MCHC 34.3 RDW 12.7 Plt Count 263 MPV 10.8 Absolute Nucleated RBC 0.000 Nucleated RBC % (auto) 0.0 Sodium 144 Potassium 4.2 Chloride 111 H Carbon Dioxide 25 Anion Gap 12 BUN 14 Creatinine 0.70 Estim Creat Clear Calc 75.5 Estimated GFR > 60 POC Glucose Fasting Glucose 123 H Calcium 8.9 Total Bilirubin Direct Bilirubin AST ALT Alkaline Phosphatase Troponin I High Sens Total Protein Albumin Amylase Lipase Rheumatoid Factor < 13.0 COVID-19 (ROSS) Negative COVID-19 Clin Com See Note Progress Note: A&P Assessment and plan (1) Pericardial effusion: Status: Acute Assessment and Plan: Pericardial effusion appears to be secondary to systemic inflammatory reaction syndrome. This is small without any evidence of angina compromise. No interventions required at this point time. She is currently on steroid therapy to treat her inflammatory bowel disease. Continue the same. Will follow-up with limited echocardiogram in 6 weeks time to see if there is resolution. Consider working up for connective tissue disease. Will sign of the case at this point time. Thank you for allowing me Time Spent With Patient Time: Total time managing care of this patient today ____ minutes. Progress Note: Quality Stroke Does the patient have a stroke diagnosis?: No Procedures Date of Service Date of Service: 09/25/22
[2022-09-25 11:39] VITALS: BP 114/72; PULSE 69; RESP 16; TEMP 36.3; O2SAT 97
[2022-09-25] MEDS: LORazepam 0.5 MG TABLET PO ×2 (11:45→20:59)
[2022-09-25] MEDS: Enoxaparin Sodium 40 MG/0.4 ML SYRINGE SUBCUT (15:00)
[2022-09-25 15:21] VITALS: BP 112/62; PULSE 75; RESP 20; TEMP 36.2; O2SAT 96
[2022-09-25] MEDS: cefTRIAXone sodium 1 GM in 0.9 % Sodium Chloride 50 ML IV (18:40)
[2022-09-25 19:49] VITALS: BP 117/59; PULSE 79; RESP 20; TEMP 36.4; O2SAT 98
[2022-09-25 23:52] VITALS: BP 106/60; PULSE 69; RESP 18; TEMP 36.7; O2SAT 100
[2022-09-26 03:18] VITALS: BP 98/49; PULSE 82; RESP 18; TEMP 36.6; O2SAT 93
[2022-09-26] MEDS: LORazepam 0.5 MG TABLET PO ×3 (03:42→17:31)
[2022-09-26] MEDS: Dicyclomine HCl 10 MG CAPSULE 20 MG PO (04:21)
[2022-09-26] MEDS: metroNIDAZOLE/NS 500 MG/100 ML PIGGYBACK 100 MG IV ×2 (06:11→14:32)
[2022-09-26 06:16] LABS: C Reactive Protein 16.55 mg/dL (< or = 0.50)
[2022-09-26 07:30] VITALS: BP 116/60; PULSE 61; RESP 18; TEMP 36.8; O2SAT 98
[2022-09-26 08:11] LABS: CDiff Gene PCR NEGATIVE (Negative)
[2022-09-26] MEDS: methylPREDNISolone Sod Succ 125 MG/2 ML VIAL 60 MG IVPUSH ×2 (09:05→20:35)
[2022-09-26 09:25] LABS: Campylobacter Not Detected (Not Detect.); Cryptosporidium Not Detected (Not Detect.); Cyclospora cayetanensis Not Detected (Not Detect.); E. coli EAEC Not Detected (Not Detect.); E. coli EPEC Not Detected (Not Detect.); E. coli ETEC Not Detected (Not Detect.); E. coli STEC Not Detected (Not Detect.); Entamoeba histolytica Not Detected (Not Detect.); Plesiomonas shigelloides Not Detected (Not Detect.); Salmonella Not Detected (Not Detect.); Shigella sp./EIEC Not Detected (Not Detect.); Vibrio Not Detected (Not Detect.); Vibrio Cholerae Not Detected (Not Detect.); Yersinia enterocolitica Not Detected (Not Detect.)
[2022-09-26 09:26] LABS: Adenovirus F 40/41 Not Detected (Not Detect.); Astrovirus Not Detected (Not Detect.); Giardia lamblia Not Detected (Not Detect.); Norovirus GI/GII Not Detected (Not Detect.); Rotavirus A Not Detected (Not Detect.); Sapovirus Not Detected (Not Detect.)
[2022-09-26 11:41] VITALS: BP 110/72; PULSE 64; RESP 16; TEMP 36.9; O2SAT 98
[2022-09-26 15:17] VITALS: BP 179/94; PULSE 73; RESP 17; TEMP 36.6; O2SAT 94
[2022-09-26] MEDS: Sorbitol/Mannit/Xanth Imaging 500 ML LIQUID 1500 ML PO (16:45)
[2022-09-26] MEDS: 0.9 % Sodium Chloride Flush 3 ML SYRINGE IVFLUSH ×2 (17:39→20:35)
[2022-09-26] MEDS: cefTRIAXone sodium 1 GM in 0.9 % Sodium Chloride 50 ML IV (17:41)
--- NOTE | 2022-09-26 18:36 | PC.NURSE ---
1722- Pt returned form CT scan. Requesting regular food and to be discharged home. Dr Barrera notified and stated he will speak with pt.
--- NOTE | 2022-09-26 19:57 | HO.PM.IMPN ---
Subjective Subjective Date of Service: 09/27/22 Interval History: f/u on enteritis, pericardial effusion Review of Systems she feels much better today, no pain in the shoulder, no more diarrhea, more enger Physical Exam Vital Signs: Vital Signs: Last Vital Signs Temp 97.8 F 09/26/22 15:17 Pulse 73 09/26/22 15:17 Resp 17 09/26/22 15:17 BP 179/94 H 09/26/22 15:17 Pulse Ox 94 09/26/22 15:17 O2 Del Method Room Air 09/26/22 15:17 BMI result Body Mass Index 25.4 General: AO X 3, no acute distress Resp:? CTA bilateral CVS: S1,S2,RRR GI: +BS, NT, no distention Skin: No rash Neuro:? motor grossly intact Psych: appropriate affect Objective Data Active Medications Acetaminophen (Acetaminophen 325 Mg Tablet) 650 mg PO Q6H PRN PRN Reason: Pain, Mild (Pain Scale 1-3) Last Admin: 09/25/22 23:35 Dose: 650 mg Documented By: VENUS Acetaminophen/Butalbital/Caffeine (Butalb/Acetamin/Caff 50/325/40 Tablet) 1 tab PO Q8H PRN PRN Reason: MIGRAINES Last Admin: 09/25/22 07:50 Dose: 1 tab Documented By: YINKA Acyclovir (Acyclovir 200 Mg Capsule) 400 mg PO BID PRN PRN Reason: Cold Sores Cyclobenzaprine HCl (Cyclobenzaprine Hcl 10 Mg Tablet) 10 mg PO DAILY PRN PRN Reason: Spasms Dicyclomine HCl (Dicyclomine Hcl 10 Mg Capsule) 20 mg PO TID PRN PRN Reason: SPASMS Last Admin: 09/26/22 04:21 Dose: 20 mg Documented By: VENUS Enoxaparin Sodium (Enoxaparin Sodium 40 Mg/0.4 Ml Syringe) 40 mg SUBCUT Q24H [facility] Last Admin: 09/26/22 14:32 Dose: Not Given Documented By: YINKA Non-Admin Reason: Patient Refused Metronidazole (Flagyl) 500 mg in 100 mls @ 100 mls/hr IV Q8H [facility] Last Infusion: 09/26/22 17:05 Dose: 0 mls/hr Documented By: ADELINA Lactated Ringer's (Lr) 1,000 mls @ 125 mls/hr IVCONT .Q8H [facility] Last Admin: 09/26/22 18:29 Dose: Not Given Documented By: ADELINA Non-Admin Reason: Patient Refused Ceftriaxone Sodium 1 gm/ (Sodium Chloride) 50 mls @ 100 mls/hr IV Q24H [facility] Last Infusion: 09/26/22 18:11 Dose: 0 mls/hr Documented By: ADELINA Ketorolac Tromethamine (Ketorolac Tromethamine 15 Mg/Ml Vial) 15 mg IVPUSH Q6H PRN PRN Reason: Pain, Moderate (Pain Scale 4-6 Last Admin: 09/24/22 20:41 Dose: 15 mg Documented By: CHIRAG Lorazepam (Lorazepam 0.5 Mg Tablet) 0.5 mg PO Q6H PRN PRN Reason: Restlessness Last Admin: 09/26/22 17:31 Dose: 0.5 mg Documented By: ADELINA Methylprednisolone Sodium Succinate (Methylprednisolone Sod Succ 125 Mg/2 Ml Vial) 60 mg IVPUSH Q12H [facility] Last Admin: 09/26/22 09:05 Dose: 60 mg Documented By: YINKA Metoclopramide HCl (Metoclopramide Hcl 10 Mg Tablet) 10 mg PO TIDAC PRN PRN Reason: Spasms Pt Own (Cyclosporine (0.05 % Dropperette)) 1 drop EYE-BOTH BID [facility] Last Admin: 09/26/22 10:32 Dose: 1 drop Documented By: YINKA Non-Formulary Medication (Zolmitriptan) 5 mg PO DAILY PRN PRN Reason: Migraine Headache Non-Formulary Medication (Rosuvastatin) 10 mg PO DAILY [facility] Pt Own Med ( Zolmitriptan [Zomig] 5 Mg [place],Non- Aerosol) 1 spray NOSTRIL-B DAILY PRN PRN Reason: Migraine Headache Last Admin: 09/26/22 17:31 Dose: 1 spray Documented By: ADELINA Pt Own ( Triamcinolone Acetonide [Nasacort Allergy] 55 Mcg Aerosol,[place]ork) 1 spray NOSTRIL-B DAILY [facility] Last Admin: 09/26/22 09:05 Dose: 1 spray Documented By: YINKA Ondansetron HCl (Ondansetron Hcl 4 Mg/2 Ml Vial) 4 mg IVPUSH Q8H PRN PRN Reason: Nausea and Vomiting Last Admin: 09/24/22 16:48 Dose: 4 mg Documented By: MARIA INES Ondansetron HCl (Ondansetron Odt 4 Mg Tab.Rapdis) 4 mg TRANSLINGU DAILY PRN PRN Reason: Nausea Pharmacy Consult (Consult Rx Perform Med Rec) 1 each MISCELLANE ONCE PRN PRN Reason: Consult order Sodium Chloride (0.9 % Sodium Chloride Flush 3 Ml Syringe) 3 ml IVFLUSH [facility] Last Admin: 09/26/22 17:39 Dose: 3 ml Documented By: ADELINA Labs 09/25/22 03:51 09/25/22 03:51 Labs: Laboratory Results - last 24 hr 09/26/22 09/26/22 09/26/22 04:00 04:00 04:04 C-Reactive Protein 16.55 H Stl C. cayetanensis PCR Not Detected Stool Rotavirus A PCR Not Detected Stl Adenov F 40/41 PCR Not Detected Stool Astrovirus (PCR) Not Detected Stool Campylobacter PCR Not Detected Stool Cryptosporidium PCR Not Detected Stl Sh Tox Pr E STEC PCR Not Detected Stool E coli O157 PCR Not applicable Stl Enterotoxigenic E PCR Not Detected Stool EPEC (PCR) Not Detected Stool EAEC (PCR) Not Detected Stl E. histolytica PCR Not Detected Stool Giardia Lamblia PCR Not Detected Stl P. shigelloides PCR Not Detected Stool Salmonella PCR Not Detected Stool Sapovirus (PCR) Not Detected Stl Shigella/EIEC PCR Not Detected St Y.enterocolitica PCR Not Detected Stool Vibrio (PCR) Not Detected Stl Vibrio cholerae PCR Not Detected Stl Norovirus GI/GII PCR Not Detected C. difficile Tox B Gene NEGATIVE Microbiology Microbiology Results: Microbiology 09/24/22 07:35 Blood Culture - Preliminary Blood - Venous No growth after 48 hours. 09/24/22 07:35 Blood Culture - Preliminary Blood - Venous No growth after 48 hours. Assessment and Plan (1) Abdominal pain: Status: Acute (2) Acute pericardial effusion: Status: Acute (3) Ileitis: Status: Acute Plan 57-year-old female with a PMH significant for?gastroparesis, abdominal migraines, osteoarthritis, and recent left surgery for a SLAP tear (06/08/2022) who presents to the ED with?severe abdominal pain and intermittent chest pain. Pt will be admitted to the hospital for treatment and further evaluation of possible infectious ileitis and pericardial effusion. Question of infectious ileitis vs autoimmune process CT showing mildly dilated segments of small bowel with intermittent segments of mild wall thickening, infection or inflammatory ileitis versus mild ileus Patient with elevated WBC, ESR, C-reactive protein--WBC is significantly down today, I think because of steroid and not ncessary the antibiotics -for now continue IV steroid, Antibiotics for now. Was seen by GI and was going to do MRI but that is on hold for now. Rheumotology work up with BRAYDON, RF, Ds-DNA, advance diet to liquid today, Pericardial effusion seen on CT--again maybe related to some autoimmune process, continue steroid. Cardiology following, will have an echo to guide further management. NO sings of teamponade Atelectasis--IC ct abd with po contrast done - seems noncontributory Mixed HLD Hold statin since rosuvastatin not on formulary and patient with myalgias from atorvastatin Abdominal migraines Continues zolmitriptan, lqgdzpvban-obluimuhiumqk-dkbwiwck Insominia Patient states she has not slept for nearly 3 days, does not routinely take any medication insomnia Ativan 0.5 mg p.r.n. Question of nerve root sheath cyst CT showing a fluid-filled structure posterior right of the pelvis Consider further evaluation with follow-up outpatient MRI of lumbar spine Full Code DVT Prophylaxis: Lovenox Need for inaptient: on going work up for above Time Spent With Patient Time: Total time managing care of this patient today ____ minutes. Quality Stroke Does the patient have a stroke diagnosis?: No VTE Prior VTE?: No VTE Risk Level:: Medical - moderate - high VTE Device Contraindication: Treatment Not Indicated VTE Drug Contraindication: N/A - Med Ordered
[2022-09-26] MEDS: metroNIDAZOLE 500 MG TABLET PO (20:35)
--- NOTE | 2022-09-27 15:25 | PM.DS ---
DS: Providers Provider Date of Service: 09/26/22 Date of admission: 09/24/22 14:13 Date of discharge: 09/26/22 Primary care physician: Regina Paz MD Consults: 09/24/22 10:55 Consult to Cardiology Stat Consulting Provider: [facility] [place] [facility] Reason for consultation: pericardial effusion evaluation 09/24/22 14:18 Consult to Gastroenterology Routine Consulting Provider: Florentino Saleh Reason for consultation: Infectious vs. inflammatory ileitis Has provider been notified: Yes DS: Diagnosis Discharge Diagnosis (1) Abdominal pain: Status: Acute (2) Acute pericardial effusion: Status: Acute (3) Ileitis: Status: Acute DS: Summary Hospital Course Hospital Course: 57-year-old female with a PMH significant for?gastroparesis, abdominal migraines, osteoarthritis, and recent left surgery for a SLAP tear (06/08/2022) who presents to the ED with?severe abdominal pain and intermittent chest pain. Pt has a history of abdominal migraines and IBS-type symptoms, and has been experiencing alternating diarrhea and constipation for the past 2-3 weeks. Pt then developed diffuse abdominal pain and nausea with occasional vomiting 3 days ago. Has felt bloated/swollen, and had decreased appetite. Denies fever, but endorses chills.? No hematemesis, hematochezia.? For the past 4 days patient was also been experiencing intermittent chest pain/pressure that radiates to her shoulders, it is relieved with rest.? Patient also notes that lately she has been unable to take a full, deep breath.? Denies lightheadedness, dizziness.? 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 Sorto.? She has had known autoimmune issues without a formal diagnosis. In the ED labs were significant for leukocytosis of 26.0, AST 42, ALT 45, C-reactive protein of 27.64, ESR 67, BNP negative, lipase and amylase WNL. UA negative for UTI. CXR showed suspected left basilar atelectasis. CT?mildly dilated segments of small bowel with some mild thickening without high-grade obstruction, infectious or inflammatory ileitis versus mild ileus.? Other findings include bilateral small pleural effusions, liver cysts, atrophic pancreas, 2 mm nonobstructing right kidney calculus, fluid-filled structure posterior right wall of pelvis possible nerve sheath cyst, and circumferential moderate-sized pericardial effusion. EKG demonstrated sinus tachycardia with no evidence of ST elevations or depressions. Pt was treated with ceftriaxone, ketorolac, IVF. Pt will be admitted to the hospital for treatment and further evaluation of possible infectious ileitis and pericardial effusion. Hospital course:57-year-old female with a PMH significant for?gastroparesis, abdominal migraines, osteoarthritis, and recent left surgery for a SLAP tear (06/08/2022) who presents to the ED with?severe abdominal pain and intermittent chest pain. Pt will be admitted to the hospital for treatment and further evaluation of possible infectious ileitis and pericardial effusion. Patient was admitted to the hospital because of possible infectious ileitis versus mild ileus: CT abdomen was done-showed dilated segment of small bowel intermittent segment with mild wall thickening as well as found to have elevated WBC, ESR, CRP, in addition?Rheumotology work up with BRAYDON, RF, Ds-DNA: Patient was started on IV antibiotics and steroids seems to be improving, able to tolerate liquid diet-with above management patient is p.o. tolerance is improving, WBC also improving, above rheumatological workup pending Pericardial effusion:? inflamatory etiology needs to follow up outpatient with Cardiology.Consider working up for connective tissue disease outpatient, outpatient echo outpatient.? Patient is to follow up with GI. In addition patient also needs to follow-up with liver cyst and lung nodule out patiently. she is improving, tolerating po, passing bm's , no abd pain Above was discussed with the patient in detail length-recomended repeat ct nondisgnostic , Recomend outpatient mri enterography. d/w Gi -recomended to go home with po antibiotics and steriods taper. ct abd also showed : Question of nerve root sheath cyst CT showing a fluid-filled structure posterior right of the pelvis Consider further evaluation with follow-up outpatient MRI of lumbar spine. Hepatic cyst with several additional too small to characterize hypodensities, that are statistically in favor to represent simple cyst. However, definite characterization could be obtained with an MR. 4 mm nodule right lower lobe. Various management parameters for solitary pulmonary nodules are in the literature. According to the UPDATED 2017 Fleischner Society recommendations, the advised follow-up imaging for solid nodules < 6 mm is: LOW RISK PATIENT: No routine follow-up. HIGH RISK PATIENT: Optional CT at 12 months. plan:complete po antibiotics and steriods taper.follow up with Gi for above. in addition follow up outpatient for other abovementioned ct abd findings outpatiently. Above management discussed the patient detail and she understand and in agreement with the above plan, time spent 50 minute. Time Spent with Patient Time attestation: Total time managing care of this patient today ____ minutes. Discharge coordination time: Greater than 30 minutes Quality: Safe Use of Opioids Does Pt have an Active Cancer Diagnosis on the Problem List?: No Quality: Stroke Does the patient have a stroke diagnosis?: No Physical Exam Vital Signs: Vital Signs: Last Vital Signs Temp 97.8 F 09/26/22 15:17 Pulse 73 09/26/22 15:17 Resp 17 09/26/22 15:17 BP 179/94 H 09/26/22 15:17 Pulse Ox 94 09/26/22 15:17 O2 Del Method Room Air 09/26/22 15:17 BMI result Body Mass Index 25.4 General: AO X 3, no acute distress Resp:? CTA bilateral CVS: S1,S2,RRR GI: +BS, NT, no distention Skin: No rash Neuro:? motor grossly intact Psych: appropriate affect DS: Data Data Completed and Pending Labs on day of discharge: Preliminary micro results at discharge 09/24/22 07:35 Blood Culture - Preliminary Blood - Venous No growth after 48 hours. 09/24/22 07:35 Blood Culture - Preliminary Blood - Venous No growth after 48 hours. Imaging Chest x-ray: Radiologist's impression: ITS Impressions Chest X-Ray 09/24/22 07:47 IMPRESSION: Suspected left basilar atelectasis. Abdomen/Pelvis CT 09/24/22 09:00 IMPRESSION: * Circumferential moderate size pericardial effusion. * Mildly dilated segments of small bowel with intermittent segments of mild wall thickening, without high-grade obstruction, pattern might be due to infection or inflammatory ileitis and/or mild ileus. Evaluation is limited due to lack of oral and IV contrast and crowding of bowel loops. If patient remain symptomatic, consider correlation with follow-up upper GI small bowel follow-through.. * Bilateral small pleural effusions, subsegmental atelectasis at both right and left lower lobe posteriorly. * Liver cysts. * Atrophic pancreas. * 2 mm nonobstructing stone in the right kidney. * Fluid-filled structure posterior right wall of the pelvis 2.8 x 1.8 cm, it extends along the expected nerve roots from the sacrum raising the possibility of nerve sheath cyst. This could be evaluated further with follow-up MRI lumbar spine. * 4 mm nodule right lower lobe. Various management parameters for solitary pulmonary nodules are in the literature. According to the UPDATED 2017 Fleischner Society recommendations, the advised follow-up imaging for solid nodules < 6 mm is: LOW RISK PATIENT: No routine follow-up. HIGH RISK PATIENT: Optional CT at 12 months. Reference: Guidelines for Management of Incidental Pulmonary Nodules Detected on CT Images: From the Fleischner Society 2017. Chest CT 09/24/22 09:00 IMPRESSION: * Circumferential moderate size pericardial effusion. * Mildly dilated segments of small bowel with intermittent segments of mild wall thickening, without high-grade obstruction, pattern might be due to infection or inflammatory ileitis and/or mild ileus. Evaluation is limited due to lack of oral and IV contrast and crowding of bowel loops. If patient remain symptomatic, consider correlation with follow-up upper GI small bowel follow-through.. * Bilateral small pleural effusions, subsegmental atelectasis at both right and left lower lobe posteriorly. * Liver cysts. * Atrophic pancreas. * 2 mm nonobstructing stone in the right kidney. * Fluid-filled structure posterior right wall of the pelvis 2.8 x 1.8 cm, it extends along the expected nerve roots from the sacrum raising the possibility of nerve sheath cyst. This could be evaluated further with follow-up MRI lumbar spine. * 4 mm nodule right lower lobe. Various management parameters for solitary pulmonary nodules are in the literature. According to the UPDATED 2017 Fleischner Society recommendations, the advised follow-up imaging for solid nodules < 6 mm is: LOW RISK PATIENT: No routine follow-up. HIGH RISK PATIENT: Optional CT at 12 months. Reference: Guidelines for Management of Incidental Pulmonary Nodules Detected on CT Images: From the Fleischner Society 2017. Abdomen/Pelvis CT 09/26/22 16:46 IMPRESSION: Evaluation of active inflammatory bowel disease and related complications is limited in the absence of IV contrast and secondary to luminal underdistention of the majority of the jejunum. If clinically deemed appropriate, a repeat examination with an MR enterography utilizing IV contrast is recommended. No significant wall thickening or associated inflammatory changes within the stomach and distal small bowel. No significant pericolonic inflammatory changes. Hepatic cyst with several additional too small to characterize hypodensities, that are statistically in favor to represent simple cyst. However, definite characterization could be obtained with an MRI. 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 Discharge Plan Discharge Anticipated Discharge Date/Time: 09/26/22 19:23 Patient Disposition: Home, Self-Care Discharge Diagnosis: Abdominal pain possible colitis? Unclear etiology. Pericardial effusion Referrals: Regina Paz MD [Primary Care Provider] - 1 Week Discharge Medications: New cefuroxime axetil 500 mg tablet 500 mg PO BID Qty: 12 0RF metronidazole 500 mg tablet 500 mg PO BID 6 Days Qty: 12 0RF prednisone 10 mg tablet See Taper PO DIRECTED Qty: 30 0RF Taper: Prednisone 40 mg daily for 3 Days and 0 Hour 30 mg daily for 3 Days and 0 Hour 20 mg daily for 3 Days and 0 Hour 10 mg daily for 3 Days and 0 Hour Rx Instructions: see taper instructions cefuroxime axetil 500 mg tablet 500 mg PO ONCE Qty: 1 0RF metronidazole 500 mg tablet 500 mg PO ONCE Qty: 1 0RF Continued rosuvastatin 10 mg tablet 10 mg PO DAILY Qty: 90 1RF Aimovig Autoinjector 70 mg/mL auto-injector 1 syringe subcut QMONTH Rx Instructions: DUE 10/08 zolmitriptan [Zomig] 5 mg spray,non-aerosol 1 spray intranasal DAILY PRN (Reason: Migraine Headache) dicyclomine 20 mg tablet 20 mg PO TID PRN (Reason: SPASMS) metoclopramide HCl [Reglan] 10 mg tablet 10 mg PO TIDAC PRN (Reason: Spasms) triamcinolone acetonide [Nasacort Allergy] 55 mcg Aerosol,[place] 1 spray INTRANASAL DAILY Rx Instructions: administer into each nostril cyclosporine [Restasis] 0.05 % Dropperette 1 drp OPHTHALMIC (EYE) Q12H acyclovir 400 mg tablet 400 mg PO BID PRN (Reason: Cold Sores) cyclosporine 0.05 % dropperette 1 drp ophthalmic (eye) BID zolmitriptan 5 mg tablet 5 mg PO DAILY PRN (Reason: Migraine Headache) cyclobenzaprine 10 mg tablet 10 mg PO DAILY PRN (Reason: Spasms) zcwxbniifl-xerromkcwrlzp-zozz 50-325-40 mg capsule 1 cap PO Q8H MDD 3 PRN (Reason: MIGRAINES) ondansetron HCl 4 mg tablet 4 mg PO DAILY PRN (Reason: Nausea) Discharge Orders: Discharge Order (Routine); Ordered 09/26/22 Ordered By: Dayanara Nicole Diet: Advance to usual diet Activity on Discharge: As tolerated Stand Alone Forms: Patient Portal Discharge page Care Plan Goals: Patient was admitted to the hospital because of possible infectious ileitisversus mild ileus: CT abdomen was done-showed dilated segment of small bowel intermittent segment with mild wall thickening as well as found to have elevated WBC, ESR, CRP, in addition?Rheumotology work up with BRAYDON, RF, Ds-DNA: Patient was started on IV antibiotics and steroids seems to be improving, able to tolerate liquid diet-with above management patient is p.o. tolerance is improving, WBC also improving, above rheumatological workup pending Pericardial effusion:? inflamatory etiology needs to follow up outpatient with Cardiology.Consider working up for connective tissue disease outpatient, outpatient echo outpatient.? Patient is to follow up with GI. In addition patient also needs to follow-up with liver cyst and lung nodule out patiently. she is improving, tolerating po, passing bm's , no abd pain Above was discussed with the patient in detail length-recomended repeat ct nondisgnostic , Recomend outpatient mri enterogram. d/w Gi -recomended to go home with po antibiotics and steriods taper. Health Concerns: As above. Plan of Treatment: As above. Assessment: As above. Discharge Date/Time: 09/26/22 21:05
[2022-09-28 23:18] LABS: Prot Elec - Alpha1 0.6 g/dL (0.2-0.3); Prot Elec - Alpha2 1.3 g/dL (0.5-0.9); Prot Elec - Beta 1 0.4 g/dL (0.4-0.6); Prot Elec - Beta 2 0.5 g/dL (0.2-0.5); Prot Elec - Gamma 0.8 g/dL (0.8-1.7); Prot Elec - Total Protein 6.6 g/dL (6.1-8.1)
[2022-09-30 11:43] LABS: DNAds, Crithidia Antibody Negative (Negative)
[2022-10-03 15:53] LABS: Anti Nuclear Antibody Screen POSITIVE (NEGATIVE)
== END 2022-09-26 21:05 | disposition home or self-care (01) | DRG 249 ==
LOC: HO.ED 06:43 → HO.EDOVER 14:44 → HO.IMC 19:12
PROVIDERS: Internal Medicine; Internal Medicine Gastroenterology; Physician Assistant Medical; Admitting Provider Student in an Organized Health Care Education/Training Program; Emergency Provider Emergency Medicine; PCP Internal Medicine; Visit Provider Internal Medicine
DX: A09 Infectious gastroenteritis and colitis, unspecified (principal); I30.9 Acute pericarditis, unspecified; D89.89 Other specified disorders involving the immune mechanism, not elsewhere classified; R65.10 Systemic inflammatory response syndrome (SIRS) of non-infectious origin without acute organ dysfunction; E86.0 Dehydration; J98.11 Atelectasis; G43.D0 Abdominal migraine, not intractable; G96.191 Perineural cyst; K58.2 Mixed irritable bowel syndrome; E78.2 Mixed hyperlipidemia; G47.00 Insomnia, unspecified; Z20.822 Contact with and (suspected) exposure to COVID-19; Z87.891 Personal history of nicotine dependence; Z98.1 Arthrodesis status; Z79.899 Other long term (current) drug therapy
CPT/HCPCS: 36415; 71046; 71250; 74176; 80048; 80076; 81001; 81479; 82150; 82397; 82947; 83520; 83605; 83690; 83880; 84165; 84484; 85007; 85025; 85027; 85652; 86038; 86039; 86140; 86255; 86431; 87040; 87493; 87507; 87635; 88346; 88350; 93005; 93306; 99285; J0696; J1650; J1885; J2405; J2930

== ENCOUNTER 2022-10-04 11:44 | Outpatient (REF) | payer OTHER, SELFPAY ==
[2022-10-04 14:27] LABS: Basophils Absolute Auto 0.1 X10*3/uL (0.0-0.2); Basophils Percent Auto 0.2 % (0-2); Eosinophils Percent Auto 0.1 % (0-4); Hematocrit 40.4 % (37.0-47.0); Hemoglobin 13.6 g/dl (12.0-16.0); Imm Gran Abs Auto 0.21 X10*3/uL (0.00-0.03); Imm Gran Pct Auto 0.9 % (0.0-0.4); Lymphocytes Absolute Auto 0.9 X10*3/uL (1.2-4.9); Lymphocytes Percent Auto 3.9 % (20-40); MANUAL DIFF FLAG SCAN; Mean Corpuscular HGB Conc 33.7 g/dl (31.0-35.0); Mean Corpuscular Hemoglobin 30.1 pg (27.0-33.0); Mean Corpuscular Volume 89.4 fL (80.0-98.0); Mean Platelet Volume 10.3 fL (9.4-12.3); Monocytes Absolute Auto 0.4 X10*3/uL (0.1-1.2); Monocytes Percent Auto 1.7 % (2-11); Neutrophils Absolute Auto 22.4 x10*3/uL (2.0-8.3); Neutrophils Percent Auto 93.2 % (45-73); Platelet Count 339 X10*3/uL (160-400); Red Blood Count 4.52 X10*6/uL (4.20-5.50); Red Cell Distribution Width 14.4 % (11.0-16.0); SCAN SMEAR FLAG 1
[2022-10-04 14:49] LABS: SLIDE REVIEW VERIFIED
[2022-10-04 15:12] LABS: Erythrocyte Sedimentation Rate 16 MM/HR (0-20)
[2022-10-04 15:18] LABS: Creatinine Urine 24.09 mg/dL; Total Protein Urine Random < 7 mg/dL (<12)
[2022-10-04 19:32] LABS: Alanine Aminotransferase 19 U/L (0-31); Albumin Level 3.8 g/dL (3.5-5.0); Alkaline Phosphatase 76 U/L (39-117); Anion Gap 18 (12-20); Aspartate Amino Transferase 12 U/L (5-31); Bilirubin Total 0.5 mg/dL (0.0-1.0); Blood Urea Nitrogen 13 mg/dL (9-16); C Reactive Protein 1.05 mg/dL (< or = 0.50); Calcium 8.9 mg/dL (8.4-10.2); Carbon Dioxide 24 mmol/L (22-29); Chloride 108 mmol/L (96-108); Estimated Glomerular Filt Rate > 60; Glucose Random 111 mg/dL (60-115); Potassium 4.4 mmol/L (3.3-5.1); Sodium 146 mmol/L (135-145); Total Protein 6.4 g/dL (6.5-8.0)
[2022-10-06 13:28] LABS: Complement C3 125 mg/dL (83-193)
[2022-10-18 18:29] LABS: Anti DNA DS Antibody <1 IU/mL; Myeloperoxidase Antibody <1.0 AI; Proteinase 3 PR3 Antibodies <1.0 AI; SM/Ribonucleoprotein Ab <1.0 NEG AI (<1.0 NEG); Smith Protein <1.0 NEG AI (<1.0 NEG)
== END 2022-10-04 11:45 | disposition home or self-care (01) ==
LOC: HO.WFDLDS 11:44
PROVIDERS: Visit Provider Internal Medicine Rheumatology
DX: R76.8 Other specified abnormal immunological findings in serum (principal)
CPT/HCPCS: 36415; 80053; 84156; 85025; 85652; 86021; 86140; 86160; 86225; 86235

== ENCOUNTER → 2022-10-12 14:46 | Outpatient (BNVA) | payer OTHER, SELFPAY | PROVIDERS: PCP Internal Medicine; Visit Provider Nurse Practitioner ==

== ENCOUNTER 2022-10-18 16:00 | Outpatient (REF) | payer OTHER, SELFPAY | END 2022-10-18 16:01 | disposition home or self-care (01) | LOC: HO.MRI 16:00 | PROVIDERS: PCP Internal Medicine; Visit Provider Internal Medicine | DX: Z13.89 Encounter for screening for other disorder (principal) ==

== ENCOUNTER 2022-10-20 14:50 | Outpatient (REF) | payer OTHER, SELFPAY ==
[2022-10-20 15:02] LABS: MANUAL DIFF FLAG NO
[2022-10-20 15:57] LABS: Basophils Percent Auto 0.2 % (0-2); Eosinophils Percent Auto 0.1 % (0-4); Hematocrit 39.1 % (37.0-47.0); Hemoglobin 13.1 g/dl (12.0-16.0); Imm Gran Abs Auto 0.09 X10*3/uL (0.00-0.03); Imm Gran Pct Auto 0.6 % (0.0-0.4); Lymphocytes Absolute Auto 1.4 X10*3/uL (1.2-4.9); Lymphocytes Percent Auto 10.1 % (20-40); Mean Corpuscular HGB Conc 33.5 g/dl (31.0-35.0); Mean Corpuscular Hemoglobin 30.3 pg (27.0-33.0); Mean Corpuscular Volume 90.3 fL (80.0-98.0); Mean Platelet Volume 9.9 fL (9.4-12.3); Monocytes Absolute Auto 0.4 X10*3/uL (0.1-1.2); Neutrophils Absolute Auto 12.1 x10*3/uL (2.0-8.3); Platelet Count 362 X10*3/uL (160-400); Red Blood Count 4.33 X10*6/uL (4.20-5.50); Red Cell Distribution Width 15.2 % (11.0-16.0)
[2022-10-20 16:35] LABS: Alanine Aminotransferase 19 U/L (0-31); Albumin Level 3.9 g/dL (3.5-5.0); Alkaline Phosphatase 65 U/L (39-117); Anion Gap 14 (12-20); Aspartate Amino Transferase 13 U/L (5-31); Bilirubin Total 0.2 mg/dL (0.0-1.0); Blood Urea Nitrogen 18 mg/dL (9-16); C Reactive Protein 0.57 mg/dL (< or = 0.50); Calcium 9.7 mg/dL (8.4-10.2); Carbon Dioxide 29 mmol/L (22-29); Chloride 104 mmol/L (96-108); Estimated Glomerular Filt Rate > 60; Glucose Random 85 mg/dL (60-115); Potassium 4.9 mmol/L (3.3-5.1); Sodium 142 mmol/L (135-145); Total Protein 6.5 g/dL (6.5-8.0)
== END 2022-10-20 14:51 | disposition home or self-care (01) ==
LOC: HO.LAB 14:50
PROVIDERS: PCP Pediatrics Adolescent Medicine; Visit Provider Nurse Practitioner
DX: R10.9 Unspecified abdominal pain (principal); K52.9 Noninfective gastroenteritis and colitis, unspecified; I31.39 Other pericardial effusion (noninflammatory)
CPT/HCPCS: 36415; 80053; 85025; 86140

== ENCOUNTER → 2022-10-24 10:26 | Outpatient (BNVA) | payer OTHER, SELFPAY | PROVIDERS: PCP Pediatrics Adolescent Medicine; Visit Provider Internal Medicine Rheumatology ==

== ENCOUNTER 2022-10-27 10:26 | Outpatient (REF) | payer OTHER, SELFPAY ==
--- NOTE | ~2022-10-27 | MR_ITS ---
EXAMINATION: MR LUMBAR SPINE WITHOUT AND WITH CONTRAST CLINICAL INFORMATION: Low back pain 6-8 months. COMPARISON: CT abdomen and pelvis 09/26/2022. TECHNIQUE: Multiplanar MR imaging of the lumbar spine was performed without and with contrast. A total of 6.5 mL Gadavist was utilized for this examination. FINDINGS: Alignment is normal. Vertebral heights are preserved. No acute bone marrow signal changes. There is disc desiccation at multiple levels without substantial loss of intervertebral disc height. The tip of the conus medullaris is located at L1. No mass effect on the conus. Visualized distal cord signal intensity is normal. At L1-L2 the annular contour is normal. No canal or neuroforaminal compromise. At L2-L3 there is an asymmetrically bulging disc to the right. No canal stenosis. No mass effect on the traversing or foraminal nerve roots. At L3-L4 there is a bulging disc. Bilateral facet degenerative change. No canal stenosis. No mass effect on the traversing or foraminal nerve roots. At L4-L5 there is a bulging disc. Bilateral facet degenerative change. No canal stenosis. Subtle abutment of the left traversing L5 nerve roots. No foraminal nerve root compression. At L5-S1 there is a bulging disc. Bilateral facet degenerative change. No canal stenosis. Partial effacement of perineural fat. No foraminal nerve root compression. There are multiple Tarlov cysts visualized within the sacrum, the largest of which measures up to 2 cm in diameter best visualized on axial image 32 of 35 series 6. Limited visualization the retroperitoneal anatomy reveals no abnormal finding. Psoas and paraspinal muscle groups are symmetric. MR/MR lumbar spine wo/w con IMPRESSION: There is disc degeneration at multiple levels within the lumbar spine. No canal stenosis. No substantial mass effect on the traversing or foraminal nerve roots. Of note there are multiple Tarlov cysts visualized within the sacrum, the largest of which measures up to 2 cm in diameter.
== END 2022-10-27 10:27 | disposition home or self-care (01) ==
LOC: HO.MRI 10:26
PROVIDERS: Visit Provider Internal Medicine
DX: G96.89 Other specified disorders of central nervous system (principal)
CPT/HCPCS: 72158; A9585

== ENCOUNTER 2022-10-30 16:19 | Outpatient (REF) | payer OTHER, SELFPAY ==
[2022-10-30 16:45] LABS: Hematocrit 43.6 % (37.0-47.0); Hemoglobin 14.9 g/dl (12.0-16.0); Mean Corpuscular HGB Conc 34.2 g/dl (31.0-35.0); Mean Corpuscular Hemoglobin 30.8 pg (27.0-33.0); Mean Corpuscular Volume 90.3 fL (80.0-98.0); Mean Platelet Volume 10.4 fL (9.4-12.3); Platelet Count 372 X10*3/uL (160-400); Red Blood Count 4.83 X10*6/uL (4.20-5.50); Red Cell Distribution Width 15.9 % (11.0-16.0)
[2022-10-30 16:55] LABS: WBC ABN SCTR FOR CBC 1
[2022-10-30 17:02] LABS: Band Neutrophils Percent 3 % (3-5); Lymphocytes Percent Manual 7 % (20-40); Monocytes Percent Manual 9 % (2-11); Neutrophils Percent Manual 81 % (45-73)
[2022-10-30 17:08] LABS: Platelet Estimate NORMAL (NORMAL); Platelet Morphology Comment NORMAL; RBC Morphology NORMAL
[2022-10-30 17:09] LABS: Lymphocytes Absolute Manual 1.4 X10*3/uL (1.2-4.9); Monocytes Absolute Manual 1.8 X10*3/uL (0.1-1.2); Neutrophils Absolute Manual 16.7 X10*3/uL (2.0-8.3); White Blood Count 19.9 X10*3/uL (4.8-10.8)
[2022-10-30 17:21] LABS: Erythrocyte Sedimentation Rate 42 MM/HR (0-20)
[2022-10-30 17:23] LABS: C Reactive Protein 20.79 mg/dL (< or = 0.50)
== END 2022-10-30 16:20 | disposition home or self-care (01) ==
LOC: HO.LAB 16:19
PROVIDERS: Visit Provider Internal Medicine Rheumatology
DX: K52.9 Noninfective gastroenteritis and colitis, unspecified (principal)
CPT/HCPCS: 36415; 85007; 85027; 85652; 86140

== ENCOUNTER → 2022-10-31 14:06 | Outpatient (BNVA) | payer OTHER, SELFPAY | PROVIDERS: PCP Pediatrics Adolescent Medicine; Visit Provider Nurse Practitioner ==

== ENCOUNTER 2022-11-02 15:18 | Outpatient (REF) | payer OTHER, SELFPAY ==
[2022-11-02 15:33] LABS: MANUAL DIFF FLAG NO
[2022-11-02 15:44] LABS: Basophils Percent Auto 0.1 % (0-2); Hematocrit 36.7 % (37.0-47.0); Hemoglobin 12.1 g/dl (12.0-16.0); Imm Gran Abs Auto 0.06 X10*3/uL (0.00-0.03); Imm Gran Pct Auto 0.4 % (0.0-0.4); Lymphocytes Percent Auto 6.8 % (20-40); Mean Corpuscular Hemoglobin 29.8 pg (27.0-33.0); Mean Corpuscular Volume 90.4 fL (80.0-98.0); Mean Platelet Volume 10.1 fL (9.4-12.3); Monocytes Absolute Auto 0.4 X10*3/uL (0.1-1.2); Monocytes Percent Auto 2.7 % (2-11); Platelet Count 368 X10*3/uL (160-400); Red Blood Count 4.06 X10*6/uL (4.20-5.50); Red Cell Distribution Width 15.4 % (11.0-16.0); White Blood Count 14.5 X10*3/uL (4.8-10.8)
[2022-11-10 20:38] LABS: Calprotectin, Fecal 53 mcg/g
== END 2022-11-02 15:19 | disposition home or self-care (01) ==
LOC: HO.LAB 15:18
PROVIDERS: Nurse Practitioner; Visit Provider Internal Medicine Rheumatology
DX: K52.9 Noninfective gastroenteritis and colitis, unspecified (principal)
CPT/HCPCS: 36415; 83993; 85025

== ENCOUNTER → 2022-11-10 08:08 | Outpatient (REF) | payer OTHER, SELFPAY ==
--- NOTE | 2022-11-10 08:10 | CA_ITS ---
Transthoracic Echocardiogram Patient (Last, First, Middle): Cookie Nielsen, Gender: Female Date of : 1965 Age: 57 Procedure Date: 11/10/2022 Procedure Type: Transthoracic Echocardiogram Location: OP Height: 160.02 cm Weight: 63.5 kg BSA: 1.66 m2 Heart Rate: 50 bpm BP: 110 / 80 mmHg Handle Maker: HUGH Referring MD: Moshe Rhdoes MD Systems Test Engineer: Moshe Rhodes MD Symptoms: I31.39 - Other pericardial effusion (noninflammatory) Study Quality: Adequate/Limited Echo ECG Rhythm: Bradycardia Conclusions: - Trivial pericardial effusion Findings Pericardium/Pleural There is a trivial pericardial effusion. Prior Study Comparison Changes noted compared to prior study dated: 09/25/2022. pericardial effusion is trivial Measurements Tricuspid Valve RA Press: 3.00 Updated in Other Vendor System with Status of Final Moshe Rhodes MD electronically signed on 11/11/2022 2:22:31 PM with status of Final
== END ==
LOC: HO.CARD 08:08
PROVIDERS: PCP Pediatrics Adolescent Medicine; Visit Provider Internal Medicine Cardiovascular Disease
DX: I31.39 Other pericardial effusion (noninflammatory) (principal)
CPT/HCPCS: 93308

== ENCOUNTER 2022-11-16 12:00 | Outpatient (REF) | payer OTHER, SELFPAY ==
[2022-11-16 14:28] LABS: Erythrocyte Sedimentation Rate 5 MM/HR (0-20)
[2022-11-16 15:00] LABS: Amylase 126 U/L (28-100); C Reactive Protein 0.14 mg/dL (< or = 0.50)
[2022-11-16 15:05] LABS: Total Protein Urine Random < 7 mg/dL (<12)
[2022-11-16 15:18] LABS: Ferritin 36 ng/mL (10-250)
[2022-11-20 13:44] LABS: Anti DNA DS Antibody <1 IU/mL
[2022-11-20 18:15] LABS: Complement C3 118 mg/dL (83-193)
[2022-11-21 19:08] LABS: Immunoglobulin G Subclass 1 437 mg/dL (382-929); Immunoglobulin G Subclass 2 161 mg/dL (241-700); Immunoglobulin G Subclass 3 42 mg/dL (22-178); Immunoglobulin G Subclass 4 56.3 mg/dL (4-86); Immunoglobulin G Total 723 mg/dL (600-1640)
[2022-11-24 15:43] LABS: TPMT Activity 12
== END 2022-11-16 12:01 | disposition home or self-care (01) ==
LOC: HO.WFDLDS 12:00
PROVIDERS: Visit Provider Internal Medicine Rheumatology
DX: K52.9 Noninfective gastroenteritis and colitis, unspecified (principal); R76.8 Other specified abnormal immunological findings in serum; I30.9 Acute pericarditis, unspecified; D72.829 Elevated white blood cell count, unspecified; I31.9 Disease of pericardium, unspecified
CPT/HCPCS: 36415; 82150; 82657; 82728; 82784; 84156; 85652; 86140; 86160; 86225

== ENCOUNTER 2022-11-17 09:35 | Outpatient (REF) | payer OTHER, SELFPAY | END 2022-11-17 09:36 | disposition home or self-care (01) | LOC: HO.MRI 09:35 | PROVIDERS: PCP Pediatrics Adolescent Medicine; Visit Provider Nurse Practitioner | DX: K52.9 Noninfective gastroenteritis and colitis, unspecified (principal) | CPT/HCPCS: 72197; 74183; A9585 ==

== ENCOUNTER → 2022-12-01 08:03 | Outpatient (BNVA) | payer OTHER, SELFPAY | PROVIDERS: PCP Pediatrics Adolescent Medicine; Visit Provider Nurse Practitioner ==

== ENCOUNTER 2022-12-04 10:59 | Outpatient (AMB) | payer OTHER, SELFPAY ==
[2022-12-04 11:08] VITALS: BP 116/78; PULSE 58; TEMP 36.2; O2SAT 100; BMI 23.6
--- NOTE | 2022-12-04 11:08 | A.OFFVIS_ITS ---
Intake Vital Signs 12/04/22 11:08 Height 5 ft 6 in Weight 146 lb 2.664 oz BMI 23.6 BP 116/78 Blood Pressure Location Rt brachial Position Sitting Pulse 58 Pulse Source Pulse Oximeter Temp 97.2 F Temp Source Skin Pulse Oximetry (%) 100 Intake Visit Reasons: joint pain Intake Note: Pt seen today for joint pain follow up. 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: No Accompanied by: Self / Same As Patient Allergies pollen extracts Allergy (Intermediate, Verified 12/04/22 11:11) Runny Nose atorvastatin Allergy (Mild, Verified 12/04/22 11:11) muscle pain blue dye Allergy (Mild, Verified 12/04/22 11:11) Unknown iodine Allergy (Mild, Verified 12/04/22 11:11) Itching red dye Allergy (Mild, Verified 12/04/22 11:11) Unknown tree and shrub pollen Allergy (Mild, Verified 12/04/22 11:11) Nasal congestion erythromycin base Allergy (Verified 12/04/22 11:11) Nausea and Vomiting stevioside [From Stevia] Adverse Reaction (Verified 12/04/22 11:11) Abdominal Pain green dye Allergy (Severe, Uncoded 12/04/22 11:11) Headache molds and smuts Allergy (Severe, Uncoded 12/04/22 11:11) hadache HPI HPI Comments History of Present Illness Details The patient returns for evaluation of her polyarthralgias, history of pericarditis, positive BRAYDON, and abdominal symptoms. She remains on 30 mg daily prednisone. For the most part this seems to control her joint pains but not some much her abdominal symptoms. She has not had any recent joint swelling, fevers, or skin rashes. She did have 1 episode of chest pain when she was sitting up. She took an extra 10 mg prep of prednisone and felt better in a couple of hours. She is overall quite tired. She has low exercise tolerance. She is not sleeping well. Her abdominal symptoms right now she says mostly consist of constipation. Her medications are being juggled in GI. She had finally the MRE with contrast of the abdomen. There were no signs of inflammatory bowel disease, organomegaly, masses, or adenopathy. She still feels she has some autoimmune disease that needs further treatment. [facility] Medical History (Updated 12/04/22 @ 07:57 by Manjinder Sorto MD) Cervical radiculopathy Elevated cholesterol Fusion of spine, cervical region History of anesthesia complications Hx of chest pain Hx of gastritis Hx of migraine headaches Ileitis Inflammation of small intestine Multinodular thyroid Osteoarthritis TMJ syndrome Surgical History H/O colonoscopy History of esophagogastroduodenoscopy (EGD) History of spinal fusion Hx of cholecystectomy Hx of dilation and curettage Hx of shoulder surgery Hx of tonsillectomy Hx of tubal ligation S/P thyroid biopsy Family History Mother Diabetes Uterine cancer Hypertension Father Diabetes Hypertension Stroke Social History Household Members: Spouse Are you a primary pediatric critical care nurse to a significant other at home: No Do you presently have visiting nurse or other home services: No Alcohol intake: never Patient Tobacco Use Status: Former Tobacco user Quit Date: 1990 Tobacco use type: Cigarette service: No Current occupational status: employed Current occupation: right hand dominant Review of Systems Const Details: Fatigue, low energy. Negative for appetite change, weight change, fever, chills, malaise Eyes Details: Negative for vision change, dry eyes,headaches and dizziness ENT Details: She was recently treated for thrush. Presently negative for pains in the mouth, hearing change, tinnitus, oral ulcer, nose bleeds and oral dryness. Card Details: One 2 hour episode of nonpleuritic, nonexertional chest pain. This was substernal. Negative palpitations, edema and syncope Resp Details: Negative for SOB, cough and wheezing GI Details: Constipation and bloating. Negative indigestion/heartburn, nausea, the bowel changes, diarrhea, and bloody stool. She says she scheduled for upper and lower endoscopy to further evaluate her pains. Skin/Breast Details: Negative for itching, rash, hives, Raynaud's symptoms, sun sensitivity, and skin cancer Neuro Details: Negative for epilepsy, palsy, stroke, changes in speech, tingling and weakness Psych Details: Anxious about the cause of her illness. Denies depression. Remains out of work and wants FMLA done through the end of December. Endo Details: Negative for polyuria and polydypsia Boom/Lymph Details: Negative for excessive bruising or bleeding. Physical Exam Vital Signs: Last Vital Signs Temp 97.2 F 12/04/22 11:08 Pulse 58 12/04/22 11:08 BP 116/78 12/04/22 11:08 Pulse Ox 100 12/04/22 11:08 BMI result Body Mass Index 23.6 APPEARANCE: Patient in no acute distress EYES no redness, pupils equal and reactive to light, eyelids normal EARS: External ear normal, canal clear and tympanic membrane normal. NOSE/SINUS: Airflow through both nares, no nasal discharge, no bleeding THROAT: Oral mucosa moist, no ulcerations NECK: No thyromegaly or masses, no adenopathy, trachea midline. HEART: Regulrar rhythm, S1-S2 heard, no murmurs, rubs or gallops. LUNG: Clear to percussion and auscultation ABD: Normal bowel sounds, no organomegaly, masses or tenderness. EXTREMITIES: No edema, no calf tenderness, normal peripheral pulses. NEURO: Oriented and alert x3. No focal weakness. Reflexes symmetric. Gait normal. SKIN: No inflammatory or neoplastic lesions. Normal color and turgor JOINT EXAM: ?? Cervical Spine:.? ? Slight discomfort with extremes of normal range of motion; no tenderness. Thoracic Spine:.? No scoliosis.? No tenderness on palpation. Lumbar Spine:.? Alignment normal.? Full range of motion without pain, no tenderness. Chest Wall:.? No tenderness, swelling, increased warmth or erythema. Hands:.? Normal pain-free range of motion with slight tenderness at the base of the thumbs.? No flexor tendon triggering or tenderness.? She has some slight bony thickening at the 2nd and 3rd PIP bilaterally with no the tenderness.? There is however no soft tissue swelling, increased warmth or erythema.? no sensory loss or thenar atrophy. Wrists:.? Normal pain-free range of motion with slight dorsal tenderness but no swelling, increased warmth or erythema. Elbows:. ? Right:? Mild medial epicondylar tenderness.? No tenderness or swelling over the joint space.? Left:Normal pain-free range of motion without tenderness, swelling, increased warmth or erythema. Shoulders:.??Right:? Full range of motion without pain. ? Slight anterior tenderness? without adenopathy, abductor weakness, swelling, increased warmth or erythema.? Left:?? normal pain-free range of motion.? No tenderness. Hips:.? Full range of motion without pain. Hip bursa:.? bilateral mild trochanteric tenderness. Knees:.??Right:? Mild patellofemoral crepitus.? Slight pain at the extremes of flexion extension with some minimal medial compartment tenderness without effusion, redness or warmth.? Left:? Normal pain-free range of motion without tenderness, swelling, increased warmth or erythema.? There is no effusion or crepitation Ankles:? Normal pain-free range of motion with some slight tenderness but no swelling. ?? Feet:.? Normal pain-free range of motion without tenderness, swelling, increased warmth or erythema. Tender points: mild tenderness to digital palpation at the trapezius, right second rib, lateral epicondyles, knees, greater trochanterl area bilaterally. ? Results Reviewed Results Reviewed: Laboratory Tests 11/16/22 11/16/22 11/16/22 12:05 12:05 12:05 ESR 5 Ferritin 36 C-Reactive Protein 0.14 TPMT Activity, Quant 12 L Assessment & Plan Assessment & Plan (1) Osteoarthritis of both hands: Code(s): M19.041 - Primary osteoarthritis, right hand; M19.042 - Primary osteoarthritis, left hand (2) Abdominal bloating: Code(s): R14.0 - Abdominal distension (gaseous) (3) BRAYDON positive: Code(s): R76.8 - Other specified abnormal immunological findings in serum Plan Most of her arthralgias and myalgias have improved. She has had recently only one episode of chest pain. That raises the question whether she could still have some pericarditis although her last cardiac echo showed only a trivial pericardial effusion. The recent sed rate and CRP were normal. The white count remains elevated although she is on a hefty dose of prednisone which could raise the white count. She has had 3 studies of the abdomen looking for signs of inflammatory bowel disease. Only in the initial 1 showed possible or bowel wall thickening. It is possible of course that the patient does have Crohn's disease that we not able to lease picker at this point. Maybe the prednisone has taken care of the swelling that was seen initially. The BRAYDON has been positive but confirmatory serologies and complement levels have not suggested systemic lupus. That still remains a possibility but she seems well controlled for now. The recent episode of chest pain before she got treated for thrush raises the question whether she could have had some esophagitis present. Currently I think we should be focused on trying to get her off the prednisone or at least a safer level of prednisone dosing. She is accepting of a trial with hydroxychloroquine. This of course could take months to work but in the meantime I think we should be trying to taper the prednisone. We agree to a taper of 5 mg every week until she got down to 10 mg daily. I will repeat CBC and acute phase reactants before her next visit in about fiber 6 weeks. The FMLA was completed to keep her out of work through the end of December. We discussed possible part-time return after that depending on her condition. Light aerobic activity was encouraged. Orders: Orders Erythrocyte Sedimentation Rate Today R76.8 - Other specified abnormal immunological findings in serum C Reactive Protein Today R76.8 - Other specified abnormal immunological findings in serum Complete Blood Count Auto Diff Today R76.8 - Other specified abnormal immunological findings in serum, Z79.899 - Other termite control service representative (current) drug therapy Medications: New hydroxychloroquine 300 mg (1.5 x 200 mg) PO DAILY 45 tabs 4RF R76.8 - Other specified abnormal immunological findings in serum Changed From prednisone 20 mg (4 x 5 mg) PO DAILY 120 tabs 1RF M25.50 - Pain in unspecified joint To prednisone 25 mg (5 x 5 mg) PO DAILY 150 tabs 1RF M25.50 - Pain in unspecified joint Discontinued metoclopramide HCl 10 mg PO .tidac 90 days 90 tabs 1RF K59.9 - Functional intestinal disorder, unspecified dicyclomine 20 mg PO TID 90 tabs 1RF K22.4 - Dyskinesia of esophagus Coding Level of Care Code Est Pt Level 4 (45996) Diagnoses Osteoarthritis of both hands M19.041; M19.042 Abdominal bloating R14.0 BRAYDON positive R76.8
== END 2022-12-04 12:15 | disposition home or self-care (01) ==
LOC: HO.RHE 10:59
PROVIDERS: PCP Pediatrics Adolescent Medicine; Visit Provider Internal Medicine Rheumatology
DX: M19.041 Primary osteoarthritis, right hand (principal); M19.042 Primary osteoarthritis, left hand; R14.0 Abdominal distension (gaseous); R76.8 Other specified abnormal immunological findings in serum
CPT/HCPCS: 99214

== ENCOUNTER → 2022-12-04 10:59 | Outpatient (BNVA) | payer OTHER, SELFPAY | PROVIDERS: PCP Pediatrics Adolescent Medicine; Visit Provider Internal Medicine Rheumatology ==

== ENCOUNTER 2022-12-14 08:16 | Outpatient (REF) | payer OTHER, SELFPAY ==
[2022-12-14 11:26] LABS: MANUAL DIFF FLAG NO
[2022-12-14 11:50] LABS: Basophils Absolute Auto 0.1 X10*3/uL (0.0-0.2); Basophils Percent Auto 0.4 % (0-2); Eosinophils Absolute Auto 0.1 X10*3/uL (0.0-0.4); Hematocrit 42.9 % (37.0-47.0); Hemoglobin 14.4 g/dl (12.0-16.0); Imm Gran Pct Auto 0.7 % (0.0-0.4); Mean Corpuscular HGB Conc 33.6 g/dl (31.0-35.0); Mean Corpuscular Hemoglobin 31.2 pg (27.0-33.0); Mean Corpuscular Volume 92.9 fL (80.0-98.0); Mean Platelet Volume 10.6 fL (9.4-12.3); Monocytes Absolute Auto 0.8 X10*3/uL (0.1-1.2); Monocytes Percent Auto 5.8 % (2-11); Neutrophils Absolute Auto 10.1 x10*3/uL (2.0-8.3); Neutrophils Percent Auto 71.1 % (45-73); Platelet Count 261 X10*3/uL (160-400); Red Blood Count 4.62 X10*6/uL (4.20-5.50); Red Cell Distribution Width 17.1 % (11.0-16.0); White Blood Count 14.2 X10*3/uL (4.8-10.8)
[2022-12-14 14:24] LABS: Alanine Aminotransferase 16 U/L (0-31); Albumin Level 3.8 g/dL (3.5-5.0); Alkaline Phosphatase 47 U/L (39-117); Anion Gap 15 (12-20); Aspartate Amino Transferase 15 U/L (5-31); Bilirubin Total 0.2 mg/dL (0.0-1.0); Blood Urea Nitrogen 19 mg/dL (9-16); Calcium 9.7 mg/dL (8.4-10.2); Carbon Dioxide 21 mmol/L (22-29); Chloride 108 mmol/L (96-108); Estimated Glomerular Filt Rate > 60; Glucose Random 80 mg/dL (60-115); Potassium 3.8 mmol/L (3.3-5.1); Sodium 140 mmol/L (135-145); Total Protein 6.6 g/dL (6.5-8.0); Vitamin D 25-OH Total 29.2 ng/mL (>30)
[2022-12-14 15:48] LABS: Vitamin B12 453 pg/mL (200-900)
[2022-12-21 15:32] LABS: Vitamin B6 17.4 ng/mL (2.1-21.7)
== END 2022-12-14 08:17 | disposition home or self-care (01) ==
LOC: HO.WFDLDS 08:16
PROVIDERS: Visit Provider Internal Medicine
DX: K52.9 Noninfective gastroenteritis and colitis, unspecified (principal); K92.2 Gastrointestinal hemorrhage, unspecified; R52 Pain, unspecified; R19.7 Diarrhea, unspecified; K90.9 Intestinal malabsorption, unspecified
CPT/HCPCS: 36415; 80053; 82306; 82607; 83735; 84207; 85025

== ENCOUNTER 2022-12-19 12:57 | Outpatient (REF) | payer OTHER, SELFPAY ==
[2022-12-19 14:50] LABS: MANUAL DIFF FLAG NO
[2022-12-19 15:43] LABS: Basophils Absolute Auto 0.1 X10*3/uL (0.0-0.2); Basophils Percent Auto 0.5 % (0-2); Eosinophils Absolute Auto 0.1 X10*3/uL (0.0-0.4); Eosinophils Percent Auto 0.5 % (0-4); Hematocrit 43.8 % (37.0-47.0); Hemoglobin 14.5 g/dl (12.0-16.0); Imm Gran Abs Auto 0.11 X10*3/uL (0.00-0.03); Imm Gran Pct Auto 0.8 % (0.0-0.4); Lymphocytes Absolute Auto 1.3 X10*3/uL (1.2-4.9); Lymphocytes Percent Auto 9.5 % (20-40); Mean Corpuscular HGB Conc 33.1 g/dl (31.0-35.0); Mean Corpuscular Volume 93.6 fL (80.0-98.0); Mean Platelet Volume 10.4 fL (9.4-12.3); Monocytes Absolute Auto 0.5 X10*3/uL (0.1-1.2); Monocytes Percent Auto 3.7 % (2-11); Neutrophils Absolute Auto 11.6 x10*3/uL (2.0-8.3); Platelet Count 247 X10*3/uL (160-400); Red Blood Count 4.68 X10*6/uL (4.20-5.50); Red Cell Distribution Width 16.4 % (11.0-16.0); White Blood Count 13.7 X10*3/uL (4.8-10.8)
[2022-12-19 16:58] LABS: Erythrocyte Sedimentation Rate 4 MM/HR (0-20)
== END 2022-12-19 12:58 | disposition home or self-care (01) ==
LOC: HO.LAB 12:57
PROVIDERS: Internal Medicine Rheumatology; PCP Pediatrics Adolescent Medicine; Visit Provider Neurological Surgery
DX: B37.81 Candidal esophagitis (principal); R76.8 Other specified abnormal immunological findings in serum; M53.3 Sacrococcygeal disorders, not elsewhere classified; Z79.899 Other long term (current) drug therapy
CPT/HCPCS: 36415; 85025; 85652; 86140

== ENCOUNTER 2022-12-19 12:57 | Outpatient (AMB) | payer OTHER, SELFPAY ==
--- NOTE | 2022-12-19 13:31 | A.SPINEOV_ITS ---
Intake Intake Visit Reasons: spinal cord cyst Intake Note: Mrs. Nielsen is here today c/o low back pain. MRI done @ [facility] [place]. Financial Associate Required: No Allergies pollen extracts Allergy (Intermediate, Verified 12/04/22 11:11) Runny Nose atorvastatin Allergy (Mild, Verified 12/04/22 11:11) muscle pain blue dye Allergy (Mild, Verified 12/04/22 11:11) Unknown iodine Allergy (Mild, Verified 12/04/22 11:11) Itching red dye Allergy (Mild, Verified 12/04/22 11:11) Unknown tree and shrub pollen Allergy (Mild, Verified 12/04/22 11:11) Nasal congestion erythromycin base Allergy (Verified 12/04/22 11:11) Nausea and Vomiting stevioside [From Stevia] Adverse Reaction (Verified 12/04/22 11:11) Abdominal Pain green dye Allergy (Severe, Uncoded 12/04/22 11:11) Headache molds and smuts Allergy (Severe, Uncoded 12/04/22 11:11) hadache Assessment & Plan Assessment & Plan (1) Chronic right SI joint pain: Code(s): M53.3 - Sacrococcygeal disorders, not elsewhere classified; G89.29 - Other chronic pain Plan Dear HAN Lacey, Thank you for referring Cookie to our office today. She is a pleasant 60 y/o female with a CC of R sided low back pain for the last 35 years. She reports that her pain began post natural childbirth, where she was shifted between many different birthing positions. She reports that her pain has become worse in the last 3-5 years, and she now rates it as a 5/10 constant pain. She reports no relief of symptoms with walking / standing / sitting / resting. 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 She has tried utlizing a chiropractor, acupuncture, and exercise / stretching in the past, with only minimal relief. She now feels her pain is affecting her daily life, and wanted to discuss durther management options. PMH: Lupus colitis, arthritis, trochanteric bursitis Social hx: Non-smoker, no disclosed substance use. Lives at home in safe housing. Medications: Prednisone 20mg daily Allergies: Pollen, Atorvastatin, Blue dye, iodine, tree and shrub pollen, erythromycin base, stevioside. Physical exam: Strength full and symmetric throughout. Sensation grossly intact. Reflexes intact. Increased pain with R sided facet loading (extension). No pain with L sided facet loading (extension). No pain with spine flexion or lateral rotation. (-) Straight leg raise bilaterally. (+) Zane's, weakly (+) Gaenslen's. 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 Impression: This is a 60 y/o female with a CC of R sided low back pain for the last 35 years, which started shortly after a natural childbirth. She states her pain has become increasingly problematic over the course of the last 3-5 years. She has imaging which shows multiple different spine disorders, none of which closely resemble her symptoms. Her symptomology most closely resembles a R sided SI joint problem. She states she has had injections in her bilateral trochanteric bursa in the past, but has never had spinal injections before. At present she is dealing with an autoimmune disorder, and is scheduled to see a specialist who will be helping to taper off her steroid regimen. After discussing Cookie's case with Dr. Chase, and reviewing her imaging with him, the plan is to have Cookie follow up with our clinic after her autoimmune disorder is more stable. She was advised to call and speak with this narrative writer, who can set her up with a referral for R sided SI joint injections. Ideally this will provide her with relief of symptoms. Thank you for allowing us to care for your patient. The total time spent with this visit with this patient was 45 minutes reviewing history, physical exam, MRI imaging review, and implementation of treatment plan or further diagnostic testing Julio Cesar Chase MD,PhD [facility] Medications: Discontinued metoclopramide HCl 10 mg PO .tidac 90 days 90 tabs 1RF K59.9 - Functional intestinal disorder, unspecified dicyclomine 20 mg PO TID 90 tabs 1RF K22.4 - Dyskinesia of esophagus Coding Level of Care Code New Pt Level 5 (10509) Diagnoses Chronic right SI joint pain M53.3; G89.29 Time Spent (min) 45
== END 2022-12-19 14:19 | disposition home or self-care (01) ==
PROVIDERS: PCP Pediatrics Adolescent Medicine; Visit Provider Neurological Surgery
DX: M53.3 Sacrococcygeal disorders, not elsewhere classified (principal); G89.29 Other chronic pain
CPT/HCPCS: 99205

== ENCOUNTER 2022-12-20 15:59 | Outpatient (REF) | payer OTHER, SELFPAY ==
--- NOTE | ~2022-12-20 | MR_ITS ---
EXAMINATION: MRI NECK WITHOUT AND WITH CONTRAST CLINICAL INFORMATION: Thyroglossal duct cyst. COMPARISON: MRI neck 12/16/2021. TECHNIQUE: Multiplanar MR imaging of the neck was performed without and with contrast. A total of 6.5 mL Gadavist was utilized for this examination. FINDINGS: There is a fusiform midline cystic lesion involving the base of the tongue that extends to the superior surface of the hyoid bone. This finding is best visualized on axial T2 image 11 of 26 series 5 and on coronal T2 image 13 of 26 series 7. It measures approximately 0.8 x 0.8 x 1.6 cm (AP x TV x SI). There is no associated solid nodular enhancement. The visualized thyroid tissue is unremarkable. No pathologically enlarged cervical lymph nodes. No mediastinal or axillary adenopathy is visualized within the [id number]-[id number] of this examination. Pharyngeal mucosal spaces are symmetric. Parapharyngeal and retromaxillary fat is preserved. Grants Analyst spaces are symmetric. The parotid and submandibular glands are normal. Epiglottis is normal. Preepiglottic fat is preserved. Glottic and visualized subglottic airways are unremarkable. There is a heterogeneously enhancing nodule within the left lobe of the thyroid gland that measures up to 1.4 cm in maximal transaxial dimension. Vascular flow voids within the neck are grossly maintained. There are chronic postoperative changes of an anterior cervical discectomy and fusion at C5-C6. Grossly no spinal canal compromise. No cord compression. Limited visualization of intracranial anatomy reveals no abnormal finding. MR/MR orbits face neck wo/w con IMPRESSION: There is a fusiform cystic lesion involving the base of the tongue that extends to the superior surface of the hyoid bone. No associated solid nodular enhancement. 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 There is a heterogeneously enhancing nodule within the left lobe of the thyroid gland that measures up to 1.4 cm in maximal transaxial dimension. This is a known lesion therefore follow-up should be undertaken based upon previous established recommendations. No pathologically enlarged cervical lymph nodes.
== END 2022-12-20 16:00 | disposition home or self-care (01) ==
LOC: HO.MRI 15:59
PROVIDERS: PCP Pediatrics Adolescent Medicine; Visit Provider Internal Medicine
DX: Q80.2 Lamellar ichthyosis (principal); K62.9 Disease of anus and rectum, unspecified; G96.89 Other specified disorders of central nervous system
CPT/HCPCS: 70543; A9585

== ENCOUNTER 2022-12-25 11:17 | Outpatient (REF) | payer OTHER, SELFPAY ==
--- NOTE | ~2022-12-25 | MM_ITS ---
EXAMINATION: MM SCREENING DIGITAL BREAST TOMOSYNTHESIS, BILATERAL CLINICAL INFORMATION: Screening. Asymptomatic. The lifetime risk of breast cancer based on the Tyrer-Cuzick Model is 6.4%. COMPARISON: Mammography: This study is compared with prior exams dating back to 2019. TECHNIQUE: Digital breast tomosynthesis is performed in both the craniocaudal and mediolateral oblique views along with computer-aided detection (CAD). Synthesized 2D images are generated from the tomosynthesis. FINDINGS: There are scattered areas of fibroglandular density (ACR BI-RADS breast composition Category b). There are no significant masses, abnormal calcifications, or other abnormalities. MM/MM tomosynthesis screening BI IMPRESSION: No mammographic evidence of malignancy. ASSESSMENT: BI-RADS BI-RADS 1 - Negative RECOMMENDATION: Routine annual mammography screening. 1 year F/U This examination should not preclude the clinical evaluation of a suspicious palpable abnormality. This patient's information was entered into a reminder system with a target due date for their next mammogram.
== END 2022-12-25 11:18 | disposition home or self-care (01) ==
LOC: HO.MAMMO 11:17
PROVIDERS: PCP Pediatrics Adolescent Medicine; Visit Provider Advanced Practice Midwife
DX: Z12.31 Encounter for screening mammogram for malignant neoplasm of breast (principal)
CPT/HCPCS: 77063; 77067

== ENCOUNTER → 2022-12-25 11:25 | Outpatient (BNV) | payer OTHER, SELFPAY | PROVIDERS: PCP Pediatrics Adolescent Medicine; Visit Provider Radiology Diagnostic Radiology | DX: Z12.31 Encounter for screening mammogram for malignant neoplasm of breast (principal) | CPT/HCPCS: 77063; 77067 ==

== ENCOUNTER 2022-12-26 11:05 | Outpatient (REF) | payer OTHER, SELFPAY ==
[2022-12-26 11:48] LABS: MANUAL DIFF FLAG NO
[2022-12-26 11:54] LABS: Basophils Absolute Auto 0.1 X10*3/uL (0.0-0.2); Basophils Percent Auto 0.6 % (0-2); Eosinophils Absolute Auto 0.2 X10*3/uL (0.0-0.4); Eosinophils Percent Auto 1.1 % (0-4); Hematocrit 42.9 % (37.0-47.0); Hemoglobin 14.8 g/dl (12.0-16.0); Imm Gran Abs Auto 0.13 X10*3/uL (0.00-0.03); Imm Gran Pct Auto 0.9 % (0.0-0.4); Lymphocytes Absolute Auto 2.6 X10*3/uL (1.2-4.9); Lymphocytes Percent Auto 18.3 % (20-40); Mean Corpuscular HGB Conc 34.5 g/dl (31.0-35.0); Mean Corpuscular Hemoglobin 31.5 pg (27.0-33.0); Mean Corpuscular Volume 91.3 fL (80.0-98.0); Mean Platelet Volume 9.9 fL (9.4-12.3); Monocytes Absolute Auto 0.9 X10*3/uL (0.1-1.2); Monocytes Percent Auto 6.2 % (2-11); Neutrophils Absolute Auto 10.5 x10*3/uL (2.0-8.3); Neutrophils Percent Auto 72.9 % (45-73); Platelet Count 230 X10*3/uL (160-400); Red Cell Distribution Width 15.6 % (11.0-16.0); White Blood Count 14.5 X10*3/uL (4.8-10.8)
[2022-12-26 12:36] LABS: Erythrocyte Sedimentation Rate 2 MM/HR (0-20)
[2022-12-26 13:07] LABS: Appearance Urine Clear; Color Urine Yellow; Glucose Urine UA Negative (Negative); Leukocyte Esterase Urine Negative (Negative); Nitrite Urine Negative (Negative); PH 5.5 (5.0-9.0); Specific Gravity - Urine 1.015 (1.005-1.025); UMIC TRIGGER UA YES; Urine Blood Small (1+) (Negative); Urine Ketones Negative (Negative); Urine Protein Negative (Neg-Trace)
[2022-12-26 13:17] LABS: Bacteria Urine None Seen (None Seen); Hyaline Casts Urine 0-2 /LPF (0-2); RBC Urine 0-2 /HPF (0-2); Squamous Epithelial Cell Urine 0-2 /HPF (0-2); WBC Urine 0-5 /HPF (0-5)
[2022-12-26 13:59] LABS: Alanine Aminotransferase 18 U/L (0-31); Albumin Level 4.2 g/dL (3.5-5.0); Alkaline Phosphatase 54 U/L (39-117); Anion Gap 15 (12-20); Aspartate Amino Transferase 17 U/L (5-31); Bilirubin Total 0.4 mg/dL (0.0-1.0); Blood Urea Nitrogen 17 mg/dL (9-16); C Reactive Protein 0.26 mg/dL (< or = 0.50); Calcium 9.8 mg/dL (8.4-10.2); Carbon Dioxide 24 mmol/L (22-29); Chloride 108 mmol/L (96-108); Estimated Glomerular Filt Rate > 60; Glucose Random 78 mg/dL (60-115); Potassium 3.7 mmol/L (3.3-5.1); Sodium 143 mmol/L (135-145); Total Protein 7.1 g/dL (6.5-8.0)
[2022-12-26 14:03] LABS: Total Protein Urine Random < 7 mg/dL (<12)
[2022-12-27 06:07] LABS: Triiodothyronine T3 Total 94 ng/dL (76-181)
[2022-12-27 09:54] LABS: Thyroid Peroxidase Antibodies <1 IU/mL (<9)
[2022-12-27 13:17] LABS: Anti DNA DS Antibody <1 IU/mL; Antibody to SS-A Antigen <1.0 NEG AI (<1.0 NEG); Antibody to SS-B Antigen <1.0 NEG AI (<1.0 NEG); SM/Ribonucleoprotein Ab <1.0 NEG AI (<1.0 NEG); Scleroderma 70 Antibody <1.0 NEG AI (<1.0 NEG); Smith Protein <1.0 NEG AI (<1.0 NEG)
[2022-12-27 17:28] LABS: Complement C3 120 mg/dL (83-193)
[2022-12-27 17:33] LABS: Immunoglobulin A 183 mg/dL (47-310); Immunoglobulin G 722 mg/dL (600-1640); Immunoglobulin M 68 mg/dL (50-300)
[2022-12-28 18:08] LABS: Anti-Centromere B Antibodies <1.0 NEG AI (<1.0 NEG)
[2023-01-01 14:54] LABS: DNAds, Crithidia Antibody Negative (Negative)
[2023-01-04 12:23] LABS: Anti Nuclear Antibody Screen POSITIVE (NEGATIVE)
== END 2022-12-26 11:06 | disposition home or self-care (01) ==
LOC: HO.LAB 11:05
PROVIDERS: PCP Internal Medicine; Visit Provider Internal Medicine Rheumatology
DX: R76.8 Other specified abnormal immunological findings in serum (principal); I31.9 Disease of pericardium, unspecified
CPT/HCPCS: 80053; 81001; 81003; 82784; 83520; 84156; 84443; 84480; 85025; 85652; 86038; 86039; 86140; 86160; 86225; 86235; 86255; 86335; 86376

== ENCOUNTER 2022-12-27 06:55 | Day surgery (SDC) | payer OTHER, SELFPAY ==
[2022-12-25 11:03] VITALS: BMI 22.6
[2022-12-27 07:19] VITALS: BP 125/76; PULSE 76; RESP 16; TEMP 35.6; O2SAT 99; BMI 25.7
--- NOTE | 2022-12-27 07:35 | HO.ANESPROP2 ---
[facility] Active Problems Active Problems: All Active Problems (Updated 12/19/22 @ 14:50 by BOUBACAR Mcleod) Chronic right SI joint pain (Acute) Esophageal candidiasis (Acute) BRAYDON positive (Acute) Pericardial effusion (Acute) Abdominal pain (Acute) Osteoarthritis of both hands (Acute) Osteoarthritis of right knee (Acute) Esophageal spasm (Acute) Small bowel motility disorder (Acute) Abdominal bloating (Acute) Colon cancer screening (Acute) Hyperlipidemia (Acute) Trochanteric bursitis (Acute) Polyarthralgia (Acute) Hx of migraine headaches (Acute) TMJ syndrome (Acute) Multinodular thyroid (Acute) Past Medical History Medical History Cervical radiculopathy Elevated cholesterol Fusion of spine, cervical region History of anesthesia complications Hx of chest pain Hx of gastritis Hx of migraine headaches Ileitis Inflammation of small intestine Multinodular thyroid Osteoarthritis TMJ syndrome Family History Family History Mother Diabetes Uterine cancer Hypertension Father Diabetes Hypertension Stroke Family history of problems with anesthesia: No Surgical History Surgical History H/O colonoscopy History of esophagogastroduodenoscopy (EGD) History of spinal fusion Hx of cholecystectomy Hx of dilation and curettage Hx of shoulder surgery Hx of tonsillectomy Hx of tubal ligation S/P thyroid biopsy History of Problems with Anesthesia: No Social History Social History Household Members: Spouse Are you a primary adult care provider to a significant other at home: No Do you presently have visiting nurse or other home services: No Alcohol intake: never Patient Tobacco Use Status: Former Tobacco user Quit Date: 1990 Tobacco use type: Cigarette Use of substances other than those prescribed or required for medical reasons: No Are you DNR?: No Advance Directives: No Advance Directives Information Provided: Yes Patient : No service: No Current occupational status: employed Current occupation: right hand dominant Meds Allergies Allergy/AdvReac Type Severity Reaction Status Date / Time pollen extracts Allergy Intermediate Runny Nose Verified 12/04/22 11:11 atorvastatin Allergy Mild muscle pain Verified 12/04/22 11:11 blue dye Allergy Mild Unknown Verified 12/04/22 11:11 iodine Allergy Mild Itching Verified 12/04/22 11:11 red dye Allergy Mild Unknown Verified 12/04/22 11:11 tree and shrub pollen Allergy Mild Nasal Verified 12/04/22 11:11 congestion erythromycin base Allergy Nausea and Verified 12/04/22 11:11 Vomiting stevioside [From Stevia] AdvReac Abdominal Verified 12/04/22 11:11 Pain green dye Allergy Severe Headache Uncoded 12/04/22 11:11 molds and smuts Allergy Severe hadache Uncoded 12/04/22 11:11 Active Medications: Current Medications Lactated Ringer's (Lr) 1,000 mls @ 100 mls/hr IVCONT .Q10H CHAMP Ondansetron HCl (Ondansetron Hcl 4 Mg/2 Ml Vial) 4 mg IVPUSH ONCE PRN PRN Reason: Nausea and Vomiting Home Medications Medication Instructions Recorded Confirmed Last Taken Type erenumab-aooe 70 mg/mL 1 syringe subcut QMONTH 11/26/20 12/25/22 09/08/22 History subcutaneous auto-injector (Aimovig Autoinjector) acyclovir 400 mg tablet 400 mg PO BID PRN Cold Sores 06/27/22 12/25/22 Unknown History cyclobenzaprine 10 mg tablet 10 mg PO DAILY PRN Spasms 06/27/22 12/25/22 Unknown History ondansetron HCl 4 mg tablet 4 mg PO DAILY PRN Nausea 06/27/22 12/25/22 Unknown History nxhpgeinpz-yquxthbkscehl-svgizwoc 1 cap PO Q8H PRN MIGRAINES 08/24/22 12/25/22 Unknown History 50 mg-325 mg-40 mg capsule dicyclomine 20 mg tablet 20 mg PO TID PRN SPASMS 09/24/22 12/25/22 Unknown History zolmitriptan 5 mg nasal spray 1 spray intranasal DAILY PRN 09/24/22 12/25/22 Unknown History (Zomig) Migraine Headache cyclosporine 0.05 % eye drops in a 1 drp ophthalmic (eye) Q12H 09/25/22 12/25/22 Unknown History dropperette (Restasis) triamcinolone acetonide 55 mcg 1 spray intranasal DAILY 09/25/22 12/25/22 Unknown History nasal spray aerosol (Nasacort Allergy) buspirone 5 mg tablet 5 mg PO BID 10/31/22 12/25/22 Unknown History methocarbamol 750 mg tablet 750 mg PO TID PRN 10/31/22 Unknown History naproxen sodium 220 mg capsule 220 mg PO Q8H PRN 10/31/22 Unknown History (Aleve) omeprazole 40 mg capsule,delayed 40 mg PO DAILY 10/31/22 12/25/22 Unknown History release Exam Exam Date and Time: December 27, 2022 0735 Height,Weight and Vital Signs: Height 5 ft 3 in Weight 65.771 kg Last Vital Signs Temp 96.1 F L 12/27/22 07:19 Pulse 76 12/27/22 07:19 Resp 16 12/27/22 07:19 BP 125/76 12/27/22 07:19 Pulse Ox 99 12/27/22 07:19 O2 Del Method Room Air 12/27/22 07:19 Airway Mallampati Class: II TM Dist: >3cm Loose/Missing/Broken Teeth: No Heart: rrr Lungs: clear Assessment and Plan Final Anesthetic Review Family History of Problems with Anesthesia: No History of Problems with Anesthesia: No ASA Class: II Final Preanesthetic Review: No Changes in Pt Med Stat, Meds/Allgs Chart Reviewed, Consent Obtained/Reviewed and Anes Risks/Benef Reviewed Patient Risk: Intermediate Procedure Risk: Low Anesthetic Plan Anesthetic Plan: MAC: Disposition: Standard PACU
--- NOTE | 2022-12-27 08:31 | MHC.SHP ---
Pre-Procedural Eval Section A Date of Service: 12/27/22 Section B Chief Complaint: Abnormal CT scan Details of Present Illness: 57 y.o F with an array of inflammatory illnesses being worked up for lupus as well, who was noted to have segmental small bowel wall thickness in August 2022 and subsequently placed on steroids. Had an MRE in October - on steroids - which was normal. She is here for repeat endoscopic evaluation. Relevant Family History (Specify if Yes): Yes Relevant Social History: None Present Medications: see Short Stay Collaborative assessment History of Previous Operations: No relevant previous surgery Allergies: Allergies Allergy/AdvReac Type Severity Reaction Status Date / Time pollen extracts Allergy Intermediate Runny Nose Verified 12/04/22 11:11 atorvastatin Allergy Mild muscle pain Verified 12/04/22 11:11 blue dye Allergy Mild Unknown Verified 12/04/22 11:11 iodine Allergy Mild Itching Verified 12/04/22 11:11 red dye Allergy Mild Unknown Verified 12/04/22 11:11 tree and shrub pollen Allergy Mild Nasal Verified 12/04/22 11:11 congestion erythromycin base Allergy Nausea and Verified 12/04/22 11:11 Vomiting stevioside [From Stevia] AdvReac Abdominal Verified 12/04/22 11:11 Pain green dye Allergy Severe Headache Uncoded 12/04/22 11:11 molds and smuts Allergy Severe hadache Uncoded 12/04/22 11:11 Review of Systems Review of Systems Comment: 10 point ROS negative Exam Exam Comment: Gen appear: No acute distress HEENT: no icterus Chest: No overt resp distress Abd: soft, nontender, nondistended Psych: Stable affect, answering questions appropriately Neuro: A/Ox3 noted to move all extremities spontaneously Ext: no peripheral edema Plan Diagnosis/Plan: Unchanged I have reviewed the history and physical and performed a pertinent physical examination on my patient. No changes have occurred unless specified. Time Spent With Patient Time: Total time managing care of this patient today ____ minutes.
[2022-12-27 09:26] VITALS: BP 141/86; PULSE 74; RESP 16; TEMP 36.2; O2SAT 99
--- NOTE | 2022-12-27 09:31 | P.OP_ITS ---
Operative Note Operative Note Date of Service: 12/27/22 Narrative: Procedure:?Esophagogastroduodenoscopy and colonoscopy Endoscopist:?Karin Quigley MD Indication:?Abnormal CT scan ?colitis, Anesthesia Provider:?Colin Chapman MD Anesthesia Type:?MAC Instrument:?Olympus GIF-H190, PCF-H190L EGD Procedure:?? The procedure, indications, preparation and potential complications were reviewed with the patient, who indicated understanding and gave written informed consent to proceed. A physical exam was performed. The endoscope was introduced through the mouth, and advanced to the third portion of the duodenum. The mucosa was carefully examined on slow withdrawal of the endoscope.? There were no immediate complications.? Patient tolerated the procedure well. EGD Findings:? * Esophagus:? Normal mucosa noted in the entire esophagus.? The Z-line is at 35 cm. Middle and lower esophagus biopsies were taken to rule out eosinophilic esophagitis or chronic inflammation suggestive of upper GI Crohn's. * Stomach:? Normal gastric mucosa was noted in the stomach. Retroflexion in the cardia was performed. Gastric mapping biopsies as per [facility] protocol were taken for histology. * Duodenum:? Normal jejunal mucosa was noted to the extent examined. Cold forceps biopsies were taken for histology. Colonoscopy Procedure:? The patient was then turned for the colonoscopy. A digital rectal exam was performed which was normal.? A distal attachment cap was affixed to the tip of the scope and the colonoscope was then inserted through the anus and advanced through the colon to the cecum at 75 cm and terminal ileum. Appendiceal orifice and ileocecal valve were identified. Mucosa was carefully examined under high definition white light as the instrument was slowly withdrawn in a retrograde panoramic fashion. Retroflexion was performed in rectum. The procedure was not difficult. There were no immediate obvious complications. The quality of the prep was BBPS: 3+2+3 = adequate Withdrawal time: 16 minutes Limitations: No limitation. Findings: Mucosa: Hyperpigmented mucosa consistent with melanosis coli was noted, most pronounced in the left side of the colon. Erythema, erosion whitish exudates were noticed in the ascending colon. Terminal ileum was intubated to 20 cm and appeared normal. Cold forceps biopsies were taken from terminal ileum, cecum, ic valve, ascending, transverse, descending, sigmoid colon and rectum. Protruding lesions: * Medium internal hemorrhoids without stigmata of recent bleeding. Impression: 1. Normal esophageal mucosa (biopsy) 2. Normal stomach (mapping biopsy) 3. Normal duodenum (biopsy) 4. Abnormal mucosa in ascending colon (biopsy) 5. Normal terminal ileum (biopsy) 6. Melanosis coli 7. Internal hemorrhoids Recommendations:?? * Follow path results * Avoid NSAIDs * If biopsies confirm Crohn's colitis, will likely need anti-TNF therapy. Will need TSPOT testing prior to initiation. * Repeat colonoscopy for asymptomatic screening in 10 years, or sooner as needed.
[2022-12-27 09:41] VITALS: BP 131/76; PULSE 63; RESP 18; TEMP 36.1; O2SAT 100
== END 2022-12-27 09:57 | disposition home or self-care (01) ==
PROVIDERS: PCP Internal Medicine; Visit Provider Internal Medicine
PROC: (CPT 45380; principal; 2022-12-27 08:30)
DX: K52.9 Noninfective gastroenteritis and colitis, unspecified (principal); K63.89 Other specified diseases of intestine; K64.8 Other hemorrhoids; K59.9 Functional intestinal disorder, unspecified; R14.0 Abdominal distension (gaseous); K22.4 Dyskinesia of esophagus; B37.81 Candidal esophagitis; M25.50 Pain in unspecified joint; E78.00 Pure hypercholesterolemia, unspecified; E04.2 Nontoxic multinodular goiter; M19.90 Unspecified osteoarthritis, unspecified site; I31.39 Other pericardial effusion (noninflammatory); R07.9 Chest pain, unspecified; Z79.52 Long term (current) use of systemic steroids; Z79.899 Other long term (current) drug therapy; Z88.8 Allergy status to other drugs, medicaments and biological substances; Z88.1 Allergy status to other antibiotic agents; Z91.041 Radiographic dye allergy status; Z98.890 Other specified postprocedural states; Z87.891 Personal history of nicotine dependence
CPT/HCPCS: 45380; 43239; 88305; 88342

== ENCOUNTER → 2022-12-27 06:55 | Outpatient (BNV) | payer OTHER, SELFPAY | PROVIDERS: PCP Internal Medicine; Visit Provider Internal Medicine | DX: R93.3 Abnormal findings on diagnostic imaging of other parts of digestive tract (principal); K63.89 Other specified diseases of intestine; K64.8 Other hemorrhoids; K52.9 Noninfective gastroenteritis and colitis, unspecified | CPT/HCPCS: 43239; 45380 ==

== ENCOUNTER 2023-01-05 09:55 | Outpatient (AMB) | payer OTHER, SELFPAY ==
[2023-01-05 10:04] VITALS: BP 115/65; PULSE 77; BMI 26.6
--- NOTE | 2023-01-05 10:04 | MHC.OFFVIS ---
Intake Vital Signs 01/05/23 10:04 Height 5 ft 3 in Weight 149 lb 14.629 oz BMI 26.6 BP 115/65 Blood Pressure Location Lt brachial Position Sitting Pulse 77 Intake Visit Reasons: S/p egd/colon-Dann Intake Note: Patient presents to in office visit today in follow up of EGD/Colonosocpy w/ Dr. EARL Patient cc: She reports BMs are better but she still don't have much endurance. Denies any new GI insurance. Equipment Engineering Technician Required: No Accompanied by: Self / Same As Patient Allergies pollen extracts Allergy (Intermediate, Verified 01/11/23 09:16) Runny Nose atorvastatin Allergy (Mild, Verified 01/11/23 09:16) muscle pain blue dye Allergy (Mild, Verified 01/11/23 09:16) Unknown iodine Allergy (Mild, Verified 01/11/23 09:16) Itching red dye Allergy (Mild, Verified 01/11/23 09:16) Unknown tree and shrub pollen Allergy (Mild, Verified 01/11/23 09:16) Nasal congestion erythromycin base Allergy (Verified 01/11/23 09:16) Nausea and Vomiting stevioside [From Stevia] Adverse Reaction (Verified 01/11/23 09:16) Abdominal Pain green dye Allergy (Severe, Uncoded 01/11/23 09:16) Headache molds and smuts Allergy (Severe, Uncoded 01/11/23 09:16) hadache HPI S/p egd/colon-Dann HPI Details Assessment & Plan (1) Abdominal pain: ?Code(s): R10.9 - Unspecified abdominal pain ?Plan: MRE and fecal calprotectin NOT convincing for Crohns. We will get EGD/colonoscopy for definitive biopsies and additional diagnositc information.? Each step seems to bring us further and further away from possible Crohn's disease.? DDX being explored via rheum includes other autoimmune or Lupus....Lupus runs in her family. We also discuss that she SHOULD seek help form a tertiary system in [place].? 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 It appears that her rheumatology provider did a p.o. purine metabolizer test on her and she was normal.? That would lead me to believe they are considering utilizing Imuran to treat her possibly to spare steroids. She certainly not having any sort of diarrhea in fact she is having constipation.? She has been trying to only take the Reglan twice a day and I tell her that if she took it 4 times a day to mimic normal eating pattern she would probably do better in promoting better small-bowel activity and management of her constipation.? This also likely would help her spare the laxatives. She continues to have quite a bit trouble being far away from a back and quite a bit of fatigue.? It seems that she will become very constipated and when she does take laxatives they will suddenly work and cause her to have to run to the bathroom.? It is not because she seems to have any in borne diarrheal process. She found that the Diflucan also was helpful in resolving her bloating and her soreness of the tongue.? This was likely Porsha the related to her prednisone therapy. At this point I will see her after the EGD and colonoscopy.? She tells me that she only needs bisacodyl tablets as her prep as this has served her well in the past. (2) Esophageal candidiasis: ?Code(s): B37.81 - Candidal esophagitis (3) Inflammation of small intestine: ?Comment: This was not borne out on subsequent MRE ?Code(s): K52.9 - Noninfective gastroenteritis and colitis, unspecified (4) Small bowel motility disorder: ?Code(s): K59.9 - Functional intestinal disorder, unspecified (5) Abdominal bloating: ?Code(s): R14.0 - Abdominal distension (gaseous) (6) Pericardial effusion: ?Code(s): I31.39 - Other pericardial effusion (noninflammatory) ? ? ? Medications: New bisacodyl (Dulcola x (bisacodyl)) 10 mg (2 x 5 mg) P O BEDTIME 2 days 4 tabs 0RF R93.3 - Abnormal f indings on diagnos tic imaging of oth er parts of digest abdias tract ? Discontinued metoclopramide HCl 10 mg? PO .tidac 9 0 days 90 tabs 1RF K59.9 - Functional intestinal disord er, unspecified ? dicyclomine 20 mg? PO TID 90 t abs 1RF K22.4 - Dyskinesia of esophagus ? EGD/COLONOSCOPY 12/27/22 EGD Findings:? Esophagus:? Normal mucosa noted in the entire esophagus.? The Z-line is at 35 cm. ? Middle and lower esophagus biopsies were taken to rule out eosinophilic esophagitis or chronic inflammation suggestive of upper GI Crohn's. Stomach:? ? Normal gastric mucosa was noted in the stomach.? Retroflexion in the cardia was performed.? Gastric mapping biopsies as per Ashley protocol were taken for histology. ?Duodenum:? Normal jejunal mucosa was noted to the extent examined. Cold forceps biopsies were taken for histology Findings: Mucosa: ? Hyperpigmented mucosa consistent with melanosis coli was noted, most pronounced in the left side of the colon. Erythema, erosion whitish exudates were noticed in the ascending colon.? Terminal ileum was intubated to 20 cm and appeared normal. ? Cold forceps biopsies were taken from terminal ileum, cecum, ic valve, ascending, transverse, descending, sigmoid colon and rectum. Protruding lesions: Medium internal hemorrhoids without stigmata of recent bleeding. Impression: 1. Normal esophageal mucosa (biopsy) 2. Normal stomach (mapping biopsy) 3. Normal duodenum (biopsy) 4. Abnormal mucosa in ascending colon (biopsy) 5. Normal terminal ileum (biopsy) 6. Melanosis coli 7. Internal hemorrhoids Recommendations:?? Follow path results Avoid NSAIDs If biopsies confirm Crohn's colitis, will likely need anti-TNF therapy. Will need TSPOT testing prior to initiation. Repeat colonoscopy for asymptomatic screening in 10 years, or sooner as needed. Received: 12/27/22 Diagnosis A.? Duodenum, biopsy:? Duodenal mucosa with preserved villi and no specific change. B.? Gastric antrum, greater curvature, biopsy:? Gastric antral mucosa with no specific change; negative for H pylori, intestinal metaplasia and dysplasia. C.? Gastric antrum, lesser curvatures, biopsy:? Gastric antral/body mucosa with congestion and focal minimal chronic inactive inflammation; negative for H pylori, intestinal metaplasia and dysplasia. D.? Gastric incisura, biopsy:? Gastric antral mucosa with focal minimal chronic inactive inflammation; negative for H pylori, intestinal metaplasia and dysplasia. E.? Gastric body, greater curvature, biopsy:? Gastric body mucosa with focal minimal chronic inactive inflammation; negative for H pylori, intestinal metaplasioa and dysplasia. F.? Gastric body, lesser curvature, biopsy:? Gastric body mucosa with focal minimal chronic inactive inflammation; negative for H pylori, intestinal metaplasia and dysplasia. G.? Esophagus, lower, biopsy:? Squamous mucosa with congestion, otherwise no specific change; no columnar mucosa present. H.? Esophagus, middle, biopsy:? Squamous mucosa with congestion, otherwise no specific change; no columnar mucosa present. I.? Terminal ileum, biopsy:? Ileal mucosa with no specific change. J.? Colon, ascending, biopsy:? Colonic mucosa with focal superficial mild active colitis, and pigmented lamina propria macrophages (see comment). K.? Colon, cecum, biopsy:? Minute fragments of colonic mucosa with no specific change. L.? Ileocecal valve, biopsy:? Colonic mucosa with focal superficial mild active colitis, and pigmented lamina propria macrophages (see comment). M.? Colon, transverse, biopsy:? Colonic mucosa with pigmented lamina propria macrophages, otherwise no specific change. N.? Colon, descending, biopsy:? Colonic mucosa with focal lamina propria hemorrhage and congestion, and pigmented lamina propria macrophages, otherwise no specific change. O.? Colon, sigmoid, biopsy:? Colonic mucosa with focal lamina propria hemorrhage and congestion, and pigmented lamina propria macrophages, otherwise no specific change. P.? Colon, rectum, biopsy:? Colonic mucosa with focal lamina propria hemorrhage and congestion, and pigmented lamina propria macrophages, otherwise no specific change. Comment: (J and L):? There are no chronic regenerative changes and no granulomas.? The superficial active inflammation may be related to bowel prep, NSAIDs/drugs, or infections and clinical correlation is necessary. (J, L, M, N, O and P):? Scattered pigmented lamina propria macrophages seen, compatible with the clinical impression of melanosis coli.? On 10/04/22 @ 09:28 Manjinder Sorto Wrote To Manjinder Sorto Patient was called: Admission and hospital notes reviewed.? She had some abdominal pain and diarrhea accompanied with some shoulder and hip pains the past week or so before she was admitted.? In the hospital she had elevated white count, CRP, ESR, and a positive BRAYDON.? She has known to have a positive BRAYDON for 20 years with negative anti DNA and [place] in the past.? The abdominal CT shows some possible ileitis.? Apparently a MRA is planned.? I am not sure if it has been scheduled yet.? She is presently at 10 mg prednisone and doing okay.? There are plans to tapered off over the next week and that seems reasonable.? She does have a GI appointment on the .? I will put in orders for urine protein, anti DNA, anti DNA, Anca, repeat Chem panel and repeat CBC.? Inflammatory bowel disease, viral syndrome, vasculitis, and lupus are all in the differential. Dr. Sorto On 10/04/22 @ 08:07 Luna Barros Wrote To Manjinder Sorto pt called need advice or come in the office for sooner apt she went to ER got admitted to [facility] las weekend her Inflammatory markers are elevated on prednisone 10 mg she has 5 days more to take prednisone please call wants to talk to you what to do . HOSPITAL CONSULT-MANNY cc: Dary Saleh ~ Event Note Date of Service: 09/24/22 Event Note: GI Consult-Full note dictated. History from patient, , and EMR. Imp: I suspect she has some type of possible autoimmune systemic inflammatory process given her history, abnormal labs, and pericardial effusion. Her GI sx and CT scan aren't very definitive. She is followed by [facility] and seems to have some chronic IBS symptoms with a recent increase in constipation and then a laxative-induced diarrhea.The CT is without oral contrast, and therefore the abnormalities may not be real. She did have an unremarkable EGD, including duodenal biopsies, and Colonoscopy in [address] Urias. Possibilities could include Crohn's disease or a systemic vasculitis involving the GI tract. Rec: Agree with antibiotics given the elevated WBC, abdominal pain, and CT findings. NPO for now. Check stool specimens if diarrhea becomes an issue. Check autoimmune studies such as an BRAYDON, DS-DNA, and RF. I would recommend? a CT-Angiogram of the abdomen to R/O any vascular disease. However, she does describe an allergy to Iodine and contrast so I will order an Abdominal MRI-Angiogram instead. She will eventually need a CT with oral contrast/enterography or Abdominal MRI with enterography to further evaluate the admitting CT findings, but she should have the MRA of the abdomen first. She may eventually need a small bowel video capsule study to further assess for small bowel disease depending on her clinical course. [facility] will assume her care in AM. D/W patient and in detail. They are comfortable with this plan. Thanks Time Spent With Patient Time: Total time managing care of this patient today ____ minutes. Dictated By: Dary Saleh Signed By: <Electronically signed by Dary? Manny> 09/24/22 CORRESPONDENCE On 11/22/22 @ 10:32 Rachana Lacey Wrote To AbhijitRachana (2) Rx sent, thanks for the reminder On 11/22/22 @ 07:35 Vielka Freed Wrote To AbhijitRachana patient called to report possible s/s of thrush. patient currently on Prednisone. patient reports white patches on her tongue on and off, and sometimes she feels as if its raw. please send tx as discussed yesterday if you have not done so already. thanks! TODAYS VISIT She is seeing a medicare contact specialist in [place] and they are doing extensive testing to r/o lupus. Dr. Leonardo started her on plaquenil and with this she is tapering the prednisone and feeling much better. She is having normal BM's and is taking the reglan tid w/o an adverse effects. she no longer has to take laxatives. she will be going back to work. I will continue to try to coordinate with her rheumatology provider since she will try to provide me with their opinions and test results going forward.. I advise her that if rheum did not find any other disease I was planning to start Humira, we discuss the elusiveness of Crohns and the exacerbating/remitting nature of this disease. The colonoscopy shows a great deal of inflammation, but the biopsy and physical appearance is not entirely c/w IBD. However, again this disease can be elusive. We really should repeat this study in 2-3 years, depending on her symptoms and ongoing diagnosis. ROV 6 weeks. [facility] Medical History (Updated 01/25/23 @ 13:11 by HALEY Lara) Cervical radiculopathy Elevated cholesterol Fusion of spine, cervical region History of anesthesia complications Hx of chest pain Hx of gastritis Hx of migraine headaches Ileitis Inflammation of small intestine Multinodular thyroid Osteoarthritis TMJ syndrome Surgical History H/O colonoscopy History of esophagogastroduodenoscopy (EGD) History of spinal fusion Hx of cholecystectomy Hx of dilation and curettage Hx of shoulder surgery Hx of tonsillectomy Hx of tubal ligation S/P thyroid biopsy Family History Mother Diabetes Uterine cancer Hypertension Father Diabetes Hypertension Stroke Social History Household Members: Spouse Are you a primary home health care case manager to a significant other at home: No Do you presently have visiting nurse or other home services: No Alcohol intake: never Patient Tobacco Use Status: Former Tobacco user Quit Date: 1990 Tobacco use type: Cigarette service: No Current occupational status: employed Current occupation: right hand dominant Review of Systems Const Reports fatigue, Denies fever(s), Denies night sweats, Denies poor appetite and Denies weight loss ENT Reports Normal hearing present, Denies dental pain, Denies dysphagia, Denies hearing loss, Denies mouth pain, Denies odynophagia, Denies throat swelling, Denies tongue swelling and Reports other (Dentition adequate) Card Reports no additional complaints and Reports dyspnea on exertion Resp Reports dyspnea on exertion GI Denies abdominal pain, Denies melena, Denies bloating, Denies hematochezia, Reports constipation, Denies GI cramping, Denies dysphagia, Denies excessive flatus, Reports early satiety, Denies heartburn, Reports diarrhea, Denies nausea, Denies odynophagia, Denies vomiting and Denies hematemesis Musc Reports back pain, Reports myalgias and Reports arthralgias Skin/Breast Denies pruritus, Denies lesions, Denies rash and Denies jaundice Neuro Reports Normal hearing present and Denies Abnormal speech present Endo Reports fatigue Aller/Immun Denies throat swelling and Denies tongue swelling Physical Exam Vital Signs: Last Vital Signs Pulse 77 01/05/23 10:04 BP 115/65 01/05/23 10:04 BMI result Body Mass Index 26.6 Const General: cooperative, no acute distress, well developed and well groomed Nutritional Appearance: average body habitus and well nourished Orientation/consciousness: oriented to person, oriented to place and oriented to time Limitations: No language barrier HEENT Head: Yes normocephalic and Yes atraumatic Eyes General: appearance normal, both eyes and all related structures Pupils: Equal, round and reactive pupils present Neck Neck: Yes normal visual inspection and Yes no lymphadenopathy Thyroid: Thyroid normal Resp Effort & Inspection: normal respiratory effort and able to speak in complete sentences Auscultation: clear to auscultation bilaterally Cardio Rate: regular rate Rhythm: regular rhythm Heart sounds: Normal, physiologic split S2 sound present Peripheral pulses: radial pulses present and posterior tibial pulses present GI Inspection: No distended and No Abdominal panniculus present Palpation (GI): Soft to palpation, nontender, no guarding, not rigid and No hepatosplenomegaly present Percussion: Yes normal to percussion Auscultation: normal bowel sounds Rectal Exam - Female: deferred Skin General skin exam: no rashes or lesions noted, turgor normal, skin not dry, no jaundice, No spider nevi and no striae Rashes: no rashes Nails: normal Neuro General: oriented to person, oriented to place and oriented to time Cranial nerves: Yes Equal, round and reactive pupils present and Yes Normal hearing present Speech: No Abnormal speech present Extrem General: Yes normal to inspection, No clubbing, No cyanosis and No edema Psych Appearance: grossly normal and well kempt Mental Status: mental status grossly normal Speech and movement: Normal speech and movement present Affect: normal affect Attitude: cooperative Thought process: Normal thought process present and not confabulating Thought content: Normal thought content present Insight: Good insight present (Psych) Judgement: Good judgement present (Psych) Results Reviewed Results Reviewed: EGD/COLONOSCOPY 12/27/22 EGD Findings:? Esophagus:? Normal mucosa noted in the entire esophagus.? The Z-line is at 35 cm. ? Middle and lower esophagus biopsies were taken to rule out eosinophilic esophagitis or chronic inflammation suggestive of upper GI Crohn's. Stomach:? ? Normal gastric mucosa was noted in the stomach.? Retroflexion in the cardia was performed.? Gastric mapping biopsies as per Ashley protocol were taken for histology. ?Duodenum:? Normal jejunal mucosa was noted to the extent examined. Cold forceps biopsies were taken for histology Findings: Mucosa: ? Hyperpigmented mucosa consistent with melanosis coli was noted, most pronounced in the left side of the colon. Erythema, erosion whitish exudates were noticed in the ascending colon.? Terminal ileum was intubated to 20 cm and appeared normal. ? Cold forceps biopsies were taken from terminal ileum, cecum, ic valve, ascending, transverse, descending, sigmoid colon and rectum. Protruding lesions: Medium internal hemorrhoids without stigmata of recent bleeding. Impression: 1. Normal esophageal mucosa (biopsy) 2. Normal stomach (mapping biopsy) 3. Normal duodenum (biopsy) 4. Abnormal mucosa in ascending colon (biopsy) 5. Normal terminal ileum (biopsy) 6. Melanosis coli 7. Internal hemorrhoids Recommendations:?? Follow path results Avoid NSAIDs If biopsies confirm Crohn's colitis, will likely need anti-TNF therapy. Will need TSPOT testing prior to initiation. Repeat colonoscopy for asymptomatic screening in 10 years, or sooner as needed. Received: 12/27/22 Diagnosis A.? Duodenum, biopsy:? Duodenal mucosa with preserved villi and no specific change. B.? Gastric antrum, greater curvature, biopsy:? Gastric antral mucosa with no specific change; negative for H pylori, intestinal metaplasia and dysplasia. C.? Gastric antrum, lesser curvatures, biopsy:? Gastric antral/body mucosa with congestion and focal minimal chronic inactive inflammation; negative for H pylori, intestinal metaplasia and dysplasia. D.? Gastric incisura, biopsy:? Gastric antral mucosa with focal minimal chronic inactive inflammation; negative for H pylori, intestinal metaplasia and dysplasia. E.? Gastric body, greater curvature, biopsy:? Gastric body mucosa with focal minimal chronic inactive inflammation; negative for H pylori, intestinal metaplasioa and dysplasia. F.? Gastric body, lesser curvature, biopsy:? Gastric body mucosa with focal minimal chronic inactive inflammation; negative for H pylori, intestinal metaplasia and dysplasia. G.? Esophagus, lower, biopsy:? Squamous mucosa with congestion, otherwise no specific change; no columnar mucosa present. H.? Esophagus, middle, biopsy:? Squamous mucosa with congestion, otherwise no specific change; no columnar mucosa present. I.? Terminal ileum, biopsy:? Ileal mucosa with no specific change. J.? Colon, ascending, biopsy:? Colonic mucosa with focal superficial mild active colitis, and pigmented lamina propria macrophages (see comment). K.? Colon, cecum, biopsy:? Minute fragments of colonic mucosa with no specific change. L.? Ileocecal valve, biopsy:? Colonic mucosa with focal superficial mild active colitis, and pigmented lamina propria macrophages (see comment). M.? Colon, transverse, biopsy:? Colonic mucosa with pigmented lamina propria macrophages, otherwise no specific change. N.? Colon, descending, biopsy:? Colonic mucosa with focal lamina propria hemorrhage and congestion, and pigmented lamina propria macrophages, otherwise no specific change. O.? Colon, sigmoid, biopsy:? Colonic mucosa with focal lamina propria hemorrhage and congestion, and pigmented lamina propria macrophages, otherwise no specific change. P.? Colon, rectum, biopsy:? Colonic mucosa with focal lamina propria hemorrhage and congestion, and pigmented lamina propria macrophages, otherwise no specific change. Comment: (J and L):? There are no chronic regenerative changes and no granulomas.? The superficial active inflammation may be related to bowel prep, NSAIDs/drugs, or infections and clinical correlation is necessary. (J, L, M, N, O and P):? Scattered pigmented lamina propria macrophages seen, compatible with the clinical impression of melanosis coli.? On 10/04/22 @ 09:28 Manjinder Sorto Wrote To Manjinder Sorto Patient was called: Admission and hospital notes reviewed.? She had some abdominal pain and diarrhea accompanied with some shoulder and hip pains the past week or so before she was admitted.? In the hospital she had elevated white count, CRP, ESR, and a positive BRAYDON.? She has known to have a positive BRAYDON for 20 years with negative anti DNA and [place] in the past.? The abdominal CT shows some possible ileitis.? Apparently a MRA is planned.? I am not sure if it has been scheduled yet.? She is presently at 10 mg prednisone and doing okay.? There are plans to tapered off over the next week and that seems reasonable.? She does have a GI appointment on the .? I will put in orders for urine protein, anti DNA, anti DNA, Anca, repeat Chem panel and repeat CBC.? Inflammatory bowel disease, viral syndrome, vasculitis, and lupus are all in the differential. Dr. Sorto On 10/04/22 @ 08:07 Luna Barros Wrote To Manjinder Sorto pt called need advice or come in the office for sooner apt she went to ER got admitted to [facility] las weekend her Inflammatory markers are elevated on prednisone 10 mg she has 5 days more to take prednisone please call wants to talk to you what to do . HOSPITAL CONSULT-MANNY cc: Dary Saleh ~ Event Note Date of Service: 09/24/22 Event Note: GI Consult-Full note dictated. History from patient, , and EMR. Imp: I suspect she has some type of possible autoimmune systemic inflammatory process given her history, abnormal labs, and pericardial effusion. Her GI sx and CT scan aren't very definitive. She is followed by [facility] and seems to have some chronic IBS symptoms with a recent increase in constipation and then a laxative-induced diarrhea.The CT is without oral contrast, and therefore the abnormalities may not be real. She did have an unremarkable EGD, including duodenal biopsies, and Colonoscopy in [address] Urias. Possibilities could include Crohn's disease or a systemic vasculitis involving the GI tract. Rec: Agree with antibiotics given the elevated WBC, abdominal pain, and CT findings. NPO for now. Check stool specimens if diarrhea becomes an issue. Check autoimmune studies such as an BRAYDON, DS-DNA, and RF. I would recommend? a CT-Angiogram of the abdomen to R/O any vascular disease. However, she does describe an allergy to Iodine and contrast so I will order an Abdominal MRI-Angiogram instead. She will eventually need a CT with oral contrast/enterography or Abdominal MRI with enterography to further evaluate the admitting CT findings, but she should have the MRA of the abdomen first. She may eventually need a small bowel video capsule study to further assess for small bowel disease depending on her clinical course. [facility] will assume her care in AM. D/W patient and in detail. They are comfortable with this plan. Thanks Time Spent With Patient Time: Total time managing care of this patient today ____ minutes. Dictated By: Dary Saleh Signed By: <Electronically signed by Dary? Manny> 09/24/22 CORRESPONDENCE On 11/22/22 @ 10:32 Rachana Lacey Wrote To AbhijitAugust (2) Rx sent, thanks for the reminder On 11/22/22 @ 07:35 Vielka Freed Wrote To AbhijitAugust patient called to report possible s/s of thrush. patient currently on Prednisone. patient reports white patches on her tongue on and off, and sometimes she feels as if its raw. please send tx as discussed yesterday if you have not done so already. thanks! Assessment & Plan Assessment & Plan (1) Abdominal pain: Code(s): R10.9 - Unspecified abdominal pain Plan: She is seeing a medicare contact specialist in [place] and they are doing extensive testing to r/o lupus. Dr. Leonardo started her on plaquenil and with this she is tapering the prednisone and feeling much better. She is having normal BM's and is taking the reglan tid w/o an adverse effects. she no longer has to take laxatives. she will be going back to work. I will continue to try to coordinate with her rheumatology provider since she will try to provide me with their opinions and test results going forward.. I advise her that if rheum did not find any other disease I was planning to start Domi, we discuss the elusiveness of Crohns and the exacerbating/remitting nature of this disease. The colonoscopy shows a great deal of inflammation, but the biopsy and physical appearance is not entirely c/w IBD. However, again this disease can be elusive. We really should repeat this study in 2-3 years, depending on her symptoms and ongoing diagnosis. ROV 6 weeks. (2) Ileitis: Comment: MRE and fecal calprotectin NOT convincing for Crohns. Colonoscopy biopsy inconclusive. Code(s): K52.9 - Noninfective gastroenteritis and colitis, unspecified (3) Small bowel motility disorder: Code(s): K59.9 - Functional intestinal disorder, unspecified (4) Abdominal bloating: Code(s): R14.0 - Abdominal distension (gaseous) (5) Inflammatory arthritis: Code(s): M19.90 - Unspecified osteoarthritis, unspecified site Medications: Discontinued metoclopramide HCl 10 mg PO .tidac 90 days 90 tabs 1RF K59.9 - Functional intestinal disorder, unspecified dicyclomine 20 mg PO TID 90 tabs 1RF K22.4 - Dyskinesia of esophagus Coding Level of Care Code Est Pt Level 3 (01443) Diagnoses Abdominal pain R10.9 Ileitis K52.9 Small bowel motility disorder K59.9 Abdominal bloating R14.0 Inflammatory arthritis M19.90
== END 2023-01-05 10:50 | disposition home or self-care (01) ==
PROVIDERS: PCP Pediatrics Adolescent Medicine; Visit Provider Nurse Practitioner
DX: R10.9 Unspecified abdominal pain (principal); K52.9 Noninfective gastroenteritis and colitis, unspecified; K59.9 Functional intestinal disorder, unspecified; R14.0 Abdominal distension (gaseous); M19.90 Unspecified osteoarthritis, unspecified site
CPT/HCPCS: 99213

== ENCOUNTER → 2023-01-05 09:55 | Outpatient (BNVA) | payer OTHER, SELFPAY | PROVIDERS: PCP Pediatrics Adolescent Medicine; Visit Provider Nurse Practitioner ==

== ENCOUNTER 2023-01-08 10:36 | Outpatient (REF) | payer OTHER, SELFPAY ==
[2023-01-08 11:40] LABS: MANUAL DIFF FLAG NO
[2023-01-08 12:19] LABS: Basophils Absolute Auto 0.1 X10*3/uL (0.0-0.2); Basophils Percent Auto 0.4 % (0-2); Eosinophils Absolute Auto 0.1 X10*3/uL (0.0-0.4); Eosinophils Percent Auto 0.6 % (0-4); Hematocrit 43.8 % (37.0-47.0); Imm Gran Abs Auto 0.19 X10*3/uL (0.00-0.03); Imm Gran Pct Auto 0.9 % (0.0-0.4); Lymphocytes Percent Auto 8.9 % (20-40); Mean Corpuscular HGB Conc 34.2 g/dl (31.0-35.0); Mean Corpuscular Hemoglobin 31.8 pg (27.0-33.0); Mean Platelet Volume 10.1 fL (9.4-12.3); Monocytes Absolute Auto 0.9 X10*3/uL (0.1-1.2); Monocytes Percent Auto 4.2 % (2-11); Neutrophils Absolute Auto 18.8 x10*3/uL (2.0-8.3); Platelet Count 282 X10*3/uL (160-400); Red Blood Count 4.71 X10*6/uL (4.20-5.50); Red Cell Distribution Width 14.9 % (11.0-16.0); White Blood Count 22.2 X10*3/uL (4.8-10.8)
[2023-01-08 13:01] LABS: Erythrocyte Sedimentation Rate 3 MM/HR (0-20)
[2023-01-08 13:11] LABS: C Reactive Protein 0.13 mg/dL (< or = 0.50)
== END 2023-01-08 10:37 | disposition home or self-care (01) ==
LOC: HO.WFDLDS 10:36
PROVIDERS: Nurse Practitioner Family; Visit Provider Internal Medicine Rheumatology
DX: B37.81 Candidal esophagitis (principal); R76.8 Other specified abnormal immunological findings in serum
CPT/HCPCS: 36415; 85025; 85652; 86140

== ENCOUNTER 2023-01-10 10:13 | Outpatient (REF) | payer OTHER, SELFPAY ==
[2023-01-10 11:21] LABS: MANUAL DIFF FLAG NO
[2023-01-10 11:28] LABS: Basophils Absolute Auto 0.1 X10*3/uL (0.0-0.2); Basophils Percent Auto 0.5 % (0-2); Eosinophils Absolute Auto 0.1 X10*3/uL (0.0-0.4); Eosinophils Percent Auto 1.1 % (0-4); Hematocrit 43.5 % (37.0-47.0); Hemoglobin 14.8 g/dl (12.0-16.0); Imm Gran Abs Auto 0.12 X10*3/uL (0.00-0.03); Imm Gran Pct Auto 0.9 % (0.0-0.4); Lymphocytes Absolute Auto 2.8 X10*3/uL (1.2-4.9); Lymphocytes Percent Auto 21.1 % (20-40); Mean Corpuscular Hemoglobin 31.4 pg (27.0-33.0); Mean Corpuscular Volume 92.2 fL (80.0-98.0); Mean Platelet Volume 10.5 fL (9.4-12.3); Monocytes Absolute Auto 0.8 X10*3/uL (0.1-1.2); Monocytes Percent Auto 6.3 % (2-11); Neutrophils Absolute Auto 9.2 x10*3/uL (2.0-8.3); Neutrophils Percent Auto 70.1 % (45-73); Platelet Count 289 X10*3/uL (160-400); Red Blood Count 4.72 X10*6/uL (4.20-5.50); Red Cell Distribution Width 14.7 % (11.0-16.0); White Blood Count 13.1 X10*3/uL (4.8-10.8)
== END 2023-01-10 10:14 | disposition home or self-care (01) ==
LOC: HO.WFDLDS 10:13
PROVIDERS: Visit Provider Internal Medicine Rheumatology
DX: R76.8 Other specified abnormal immunological findings in serum (principal)
CPT/HCPCS: 36415; 85025

== ENCOUNTER 2023-01-11 09:14 | Outpatient (AMB) | payer OTHER, SELFPAY ==
--- NOTE | 2023-01-11 09:15 | A.OFFVIS_ITS ---
Intake Vital Signs 01/11/23 09:17 Height 5 ft 3 in Weight 149 lb BMI 26.4 BP 108/62 Blood Pressure Location Lt brachial Position Sitting Pulse 89 Pulse Source Pulse Oximeter Temp 96.6 F L Temp Source Skin Pulse Oximetry (%) 98 Oxygen Delivery Method Room Air Intake Visit Reasons: pa Intake Note: Here for PA. Personal Carer Required: No Accompanied by: Spouse Allergies pollen extracts Allergy (Intermediate, Verified 01/11/23 09:16) Runny Nose atorvastatin Allergy (Mild, Verified 01/11/23 09:16) muscle pain blue dye Allergy (Mild, Verified 01/11/23 09:16) Unknown iodine Allergy (Mild, Verified 01/11/23 09:16) Itching red dye Allergy (Mild, Verified 01/11/23 09:16) Unknown tree and shrub pollen Allergy (Mild, Verified 01/11/23 09:16) Nasal congestion erythromycin base Allergy (Verified 01/11/23 09:16) Nausea and Vomiting stevioside [From Stevia] Adverse Reaction (Verified 01/11/23 09:16) Abdominal Pain green dye Allergy (Severe, Uncoded 01/11/23 09:16) Headache molds and smuts Allergy (Severe, Uncoded 01/11/23 09:16) hadache Medication List - Last Reconciled 01/11/23 by Manjinder Sorto MD acyclovir 400 mg PO BID PRN bisacodyl (Dulcolax (bisacodyl)) 10 mg (2 x 5 mg) PO BEDTIME 2 days lstgvzaoaz-zjpobnzwkdfrq-osnh 50-325-40 mg 1 cap PO Q8H PRN MDD 3 cyclobenzaprine 10 mg PO DAILY PRN cyclosporine 0.05% (Restasis) 1 drp ophthalmic (eye) Q12H dicyclomine 20 mg PO TID PRN hydroxychloroquine 400 mg on even days, 200 mg on odd days orally daily; lorazepam 0.5 mg PO metoclopramide HCl 10 mg PO TID naproxen sodium (Aleve) 220 mg PO Q8H PRN omeprazole 40 mg PO DAILY ondansetron HCl 4 mg PO DAILY PRN prednisone 12.5 mg PO DAILY triamcinolone acetonide (Nasacort Allergy) 1 spray intranasal DAILY zolmitriptan (Zomig) 1 spray intranasal DAILY PRN zolmitriptan 5 mg PO HPI HPI Comments History of Present Illness Details The patient returns for evaluation of her positive BRAYDON, history of pericarditis, fatigue, GI symptoms and myalgias. Her accompanies her today. She did undergo upper and lower endoscopy. The colonic biopsies showed very slight areas of colitis but nothing specific for Crohn's disease. The upper endoscopy was basically normal. I have her on some hydroxychloroquine for possible SLE. She is down to 15 mg daily prednisone. She seems to be very uncomfortable with the 5 mg tapering every couple of weeks. She seems to have days when she is exhausted and cannot get out of bed. There seems to be some achiness in the neck, shoulders and lower back. She does have degenerative process in the lumbar spine has been offered epidural steroids but does not know whether to proceed with that. She does not have any headache, jaw claudication or visual disturbance. There are a few red spots on the face and legs. None of these have any persistent rash. The lesions ae flat. She has been in communication with a child day care center worker in [place] and further blood work was done. Basically it showed the similar findings we had with a positive BRAYDON but otherwise negative serologies. She still is not able to work mostly because of the fatigue. Seemingly the GI symptoms are somewhat better with current regimen that includes metoclopramide, omeprazole, and dicyclomine. It is unclear whether she takes these all that regularly. There has been no hematochezia or melena. Weight remains stable. [facility] Medical History (Updated 01/11/23 @ 20:30 by Manjinder Sorto MD) Cervical radiculopathy Elevated cholesterol Fusion of spine, cervical region History of anesthesia complications Hx of chest pain Hx of gastritis Hx of migraine headaches Ileitis Inflammation of small intestine Multinodular thyroid Osteoarthritis TMJ syndrome Surgical History H/O colonoscopy History of esophagogastroduodenoscopy (EGD) History of spinal fusion Hx of cholecystectomy Hx of dilation and curettage Hx of shoulder surgery Hx of tonsillectomy Hx of tubal ligation S/P thyroid biopsy Family History Mother Diabetes Uterine cancer Hypertension Father Diabetes Hypertension Stroke Social History Household Members: Spouse Are you a primary healthcare economics consultant to a significant other at home: No Do you presently have visiting nurse or other home services: No Alcohol intake: never Patient Tobacco Use Status: Former Tobacco user Quit Date: 1990 Tobacco use type: Cigarette service: No Current occupational status: employed Current occupation: right hand dominant Review of Systems Const Details: She has episodic days of extreme fatigue where she can not get out of bed of without significant discomfort. Of the day she is more active in goes up and down stairs and does laundry. Negative for appetite change, weight change, fever, chills, malaise Eyes Details: Negative for vision change, dry eyes,headaches and dizziness ENT Details: Negative for hearing change, tinnitus, oral ulcer, nose bleeds and oral dryness. Card Details: Negative chest pain, edema and syncope Resp Details: Negative for SOB, cough and wheezing GI Details: Some constipation, intermittent heartburn, less loose stool. Negative nausea, abdominal pain, bowel changes, and bloody stool. Skin/Breast Details: Occasional red spots on the legs and arms. These tend to come to a head and then disappear. Negative for itching,, hives, Raynaud's symptoms, sun sensitivity, and skin cancer Psych Details: Somewhat frustrated by her fatigue problems. Boom/Lymph Details: Negative for excessive bruising or bleeding. Physical Exam Vital Signs: Last Vital Signs Temp 96.6 F L 01/11/23 09:17 Pulse 89 01/11/23 09:17 BP 108/62 01/11/23 09:17 Pulse Ox 98 01/11/23 09:17 Oxygen Delivery Method Room Air 01/11/23 09:17 BMI result Body Mass Index 26.4 APPEARANCE: Patient in no acute distress EYES no redness, pupils equal and reactive to light, eyelids normal EARS: External ear normal, canal clear and tympanic membrane normal. NOSE/SINUS: Airflow through both nares, no nasal discharge, no bleeding THROAT: Oral mucosa moist, no ulcerations NECK: No thyromegaly or masses, no adenopathy, trachea midline. HEART: Regulrar rhythm, S1-S2 heard, no murmurs, rubs or gallops. LUNG: Clear to percussion and auscultation ABD: Normal bowel sounds, no organomegaly, masses or tenderness. EXTREMITIES: No edema, no calf tenderness, normal peripheral pulses. NEURO: Oriented and alert x3. No focal weakness. Reflexes symmetric. Gait normal. SKIN: Ther are scattered slightly red, 1-2 mm macules on the face. No 0ther lesions. JOINT EXAM:.?? Cervical Spine:.? Full range of motion without pain; no tenderness. Thoracic Spine:.? No scoliosis.? No tenderness on palpation. Lumbar Spine:.? Alignment normal.? Full range of motion without pain, no tenderness. Chest Wall:.? No tenderness, swelling, increased warmth or erythema. Hands:.? Normal pain-free range of motion without tenderness, swelling, increased warmth or erythema. Able to make a full fist and has a good loom fixer helper strength. Wrists:.? Normal pain-free range of motion without tenderness, swelling, increased warmth or erythema. Elbows:. Normal pain-free range of motion without tenderness, swelling, increased warmth or erythema. Shoulders:.?? Full range of motion without pain. No tenderness, weakness, swelling, increased warmth or erythema. Hips:.? Full range of motion without pain. Hip bursa:.? No tenderness. Knees:.?? Normal pain-free range of motion without tenderness, swelling, increased warmth or erythema.? There is no effusion or crepitation Ankles:.? Normal pain-free range of motion without tenderness, swelling, increased warmth or erythema. Feet:.? Normal pain-free range of motion without tenderness, swelling, increased warmth or erythema. Tender points:.? No tenderness to digital palpation at the occiput, trapezius, second rib, lateral epicondyle, knees, greater trochanter and gluteal area bilaterally. ? Results Reviewed Results Reviewed: Laboratory Tests 01/08/23 01/08/23 01/08/23 10:37 10:37 10:37 WBC 22.2 H Hgb 15.0 ESR 3 C-Reactive Protein 0.13 01/10/23 10:14 WBC 13.1 H Hgb 14.8 ESR C-Reactive Protein Assessment & Plan Assessment & Plan (1) BRAYDON positive: Code(s): R76.8 - Other specified abnormal immunological findings in serum (2) Pain of multiple sites: Code(s): R52 - Pain, unspecified Plan Presently the major complaint is fatigue. I do not get the impression that she has a lot of pain, just the feeling that she can not do things because of fatigue. Her GI workup did not show definitive findings other than some minimal inflammatory changes in the colonic mucosa. These were not felt to be significant by GI. It is possible that the prednisone treatment has suppressed significant inflammatory bowel disease however. Again I do not see signs of an active inflammatory arthritis. It is possible that most of the GI symptoms at this point are from irritable bowel syndrome and that her musculoskeletal symptoms are more consistent with fibromyalgiamor PMR. I think we should continue to taper the prednisone. We elected to good in 2.5 mg steps every 5 days so her next dose would be 12.5 mg and then 5 days after that we was back down to 10 mg daily. At that point we will move to the 1 mg tablets and drop by 1 mg every 5 days. We will recheck a visit in about a month. Orders: Orders C Reactive Protein Today R52 - Pain, unspecified, R76.8 - Other specified abnormal immunological findings in serum Complete Blood Count Auto Diff Today R52 - Pain, unspecified, R76.8 - Other specified abnormal immunological findings in serum, Z79.899 - Other skilled nursing (current) drug therapy Erythrocyte Sedimentation Rate Today R52 - Pain, unspecified, R76.8 - Other specified abnormal immunological findings in serum Medications: Changed From hydroxychloroquine 300 mg (1.5 x 200 mg) PO DAILY 45 tabs 4RF R76.8 - Other specified abnormal immunological findings in serum To hydroxychloroquine 400 mg on even days, 200 mg on odd days orally daily; R76.8 - Other specified abnormal immunological findings in serum Discontinued metoclopramide HCl 10 mg PO .tidac 90 days 90 tabs 1RF K59.9 - Functional intestinal disorder, unspecified dicyclomine 20 mg PO TID 90 tabs 1RF K22.4 - Dyskinesia of esophagus Coding Level of Care Code Est Pt Level 3 (07130) Diagnoses BRAYDON positive R76.8 Pain of multiple sites R52
[2023-01-11 09:17] VITALS: BP 108/62; PULSE 89; TEMP 35.9; O2SAT 98; BMI 26.4
== END 2023-01-11 09:56 | disposition home or self-care (01) ==
PROVIDERS: PCP Pediatrics Adolescent Medicine; Visit Provider Internal Medicine Rheumatology
DX: R76.8 Other specified abnormal immunological findings in serum (principal); R52 Pain, unspecified
CPT/HCPCS: 99213

== ENCOUNTER → 2023-01-11 09:14 | Outpatient (BNVA) | payer OTHER, SELFPAY | PROVIDERS: PCP Pediatrics Adolescent Medicine; Visit Provider Internal Medicine Rheumatology ==

== ENCOUNTER 2023-01-23 11:40 | Outpatient (REF) | payer OTHER, SELFPAY ==
--- NOTE | ~2023-01-23 | XR_ITS ---
STUDY: Cervical spine and left shoulder INDICATION: Neck pain and cervical radiculopathy COMPARISON: None TECHNIQUE: 3 view cervical spine 5 view left shoulder FINDINGS: Cervical spine: Cervical lordotic straightening. C5-C6 anterior cervical fusion hardware appears appropriate in position without evidence of loosening or failure. Vertebral body heights are maintained. Posterior elements are aligned, odontoid is partially obscured. No prevertebral soft tissue swelling. Nuchal calcification. Clear lung apices. Left shoulder: No fracture or dislocation. Alignment and articulations are maintained. Acromioclavicular and glenohumeral joints are maintained. Visualized lung and ribs are unremarkable. XR/XR cervical spine 2V IMPRESSION: Postoperative changes cervical spine, cervical lordotic straightening. No acute bony abnormality cervical spine and left shoulder.
--- NOTE | ~2023-01-23 | XR_ITS ---
STUDY: Cervical spine and left shoulder INDICATION: Neck pain and cervical radiculopathy COMPARISON: None TECHNIQUE: 3 view cervical spine 5 view left shoulder FINDINGS: Cervical spine: Cervical lordotic straightening. C5-C6 anterior cervical fusion hardware appears appropriate in position without evidence of loosening or failure. Vertebral body heights are maintained. Posterior elements are aligned, odontoid is partially obscured. No prevertebral soft tissue swelling. Nuchal calcification. Clear lung apices. Left shoulder: No fracture or dislocation. Alignment and articulations are maintained. Acromioclavicular and glenohumeral joints are maintained. Visualized lung and ribs are unremarkable. XR/XR shoulder LT min 2V IMPRESSION: Postoperative changes cervical spine, cervical lordotic straightening. No acute bony abnormality cervical spine and left shoulder.
[2023-01-23 12:53] LABS: C Reactive Protein 8.57 mg/dL (< or = 0.50)
[2023-01-23 13:42] LABS: Basophils Absolute Auto 0.1 X10*3/uL (0.0-0.2); Basophils Percent Auto 0.3 % (0-2); Eosinophils Percent Auto 0.1 % (0-4); Hematocrit 46.1 % (37.0-47.0); Hemoglobin 15.9 g/dl (12.0-16.0); Imm Gran Abs Auto 0.15 X10*3/uL (0.00-0.03); Imm Gran Pct Auto 0.6 % (0.0-0.4); Lymphocytes Absolute Auto 0.8 X10*3/uL (1.2-4.9); Lymphocytes Percent Auto 3.4 % (20-40); MANUAL DIFF FLAG SCAN; Mean Corpuscular HGB Conc 34.5 g/dl (31.0-35.0); Mean Corpuscular Hemoglobin 31.7 pg (27.0-33.0); Mean Platelet Volume 10.7 fL (9.4-12.3); Monocytes Absolute Auto 1.1 X10*3/uL (0.1-1.2); Monocytes Percent Auto 4.7 % (2-11); Neutrophils Percent Auto 90.9 % (45-73); Platelet Count 279 X10*3/uL (160-400); Red Blood Count 5.01 X10*6/uL (4.20-5.50); Red Cell Distribution Width 14.2 % (11.0-16.0); SCAN SMEAR FLAG 1; White Blood Count 23.2 X10*3/uL (4.8-10.8)
[2023-01-23 14:02] LABS: SLIDE REVIEW VERIFIED
[2023-01-23 14:29] LABS: Erythrocyte Sedimentation Rate 34 MM/HR (0-20)
[2023-01-25 17:03] LABS: CRP High Sensitivity >10.0 mg/L
== END 2023-01-23 11:41 | disposition home or self-care (01) ==
LOC: HO.LAB 11:40
PROVIDERS: Absent Provider Family Medicine; PCP Family Medicine; Visit Provider Internal Medicine Rheumatology
DX: M54.12 Radiculopathy, cervical region (principal); M25.512 Pain in left shoulder; R76.8 Other specified abnormal immunological findings in serum; Z79.899 Other long term (current) drug therapy
CPT/HCPCS: 36415; 72040; 73030; 85025; 85652; 86140; 86141

== ENCOUNTER 2023-01-28 07:50 | Emergency (ER) | payer OTHER, SELFPAY ==
--- NOTE | ~2023-01-28 | XR_ITS ---
EXAMINATION: XR CHEST CLINICAL INFORMATION: Chest pain COMPARISON: Previous chest x-ray and chest CT August 2022 TECHNIQUE: Frontal view of the chest was obtained. FINDINGS: The cardiac and mediastinal contours are stable. The lungs are clear. There is blunting of the left lateral costophrenic angle questionable for a small left pleural effusion. There is no right pleural effusion. There is no pneumothorax. Bony structures are unremarkable. XR/XR chest 1V IMPRESSION: Question small left pleural effusion.
[2023-01-28 07:55] VITALS: BP 147/95; PULSE 100; RESP 20; TEMP 36.3; O2SAT 98; BMI 27.3
--- NOTE | 2023-01-28 08:00 | ED_ITS ---
HPI - SOB/Dyspnea General Chief Complaint: Chest Pain Stated Complaint: chest pain Time Seen by Provider: 01/28/23 07:54 Source: patient Mode of arrival: ambulatory Limitations: no limitations History of Present Illness HPI Narrative: Patient with weakness and shortness of breath for 4 days, she is on a prednisone taper but now with diffuse myalgias. Patient is on 5mg twice a day of prednisone but feels worse on the taper. Patient feels worse since she the time that she was on prednisone 15mg qd. Patient was mostly concerned about her chest pain which is worse with deep inspiration. No pulmonary embolus but sed rate and crp were going up. MD elicited complaint: chest pain Related Data Home Medications Medication Instructions Recorded Confirmed acyclovir 400 mg tablet 400 mg PO BID PRN Cold Sores 06/27/22 01/11/23 cyclobenzaprine 10 mg tablet 10 mg PO DAILY PRN Spasms 06/27/22 01/11/23 ondansetron HCl 4 mg tablet 4 mg PO DAILY PRN Nausea 06/27/22 01/11/23 wxnudgnvac-xbdylvozzemio-qfbmmhxn 1 cap PO Q8H PRN MIGRAINES 08/24/22 01/11/23 50 mg-325 mg-40 mg capsule dicyclomine 20 mg tablet 20 mg PO TID PRN SPASMS 09/24/22 01/11/23 zolmitriptan 5 mg nasal spray 1 spray intranasal DAILY PRN 09/24/22 01/11/23 (Zomig) Migraine Headache cyclosporine 0.05 % eye drops in a 1 drp ophthalmic (eye) Q12H 09/25/22 01/11/23 dropperette (Restasis) triamcinolone acetonide 55 mcg 1 spray intranasal DAILY 09/25/22 01/11/23 nasal spray aerosol (Nasacort Allergy) naproxen sodium 220 mg capsule 220 mg PO Q8H PRN 10/31/22 01/11/23 (Aleve) omeprazole 40 mg capsule,delayed 40 mg PO DAILY 10/31/22 01/11/23 release hydroxychloroquine 200 mg tablet See Rx Instructions PO DAILY 01/11/23 01/11/23 lorazepam 0.5 mg tablet 0.5 mg PO anxiety 01/11/23 01/11/23 zolmitriptan 5 mg tablet 5 mg PO migraine 01/11/23 01/11/23 Previous Rx's Medication Instructions Recorded bisacodyl 5 mg tablet,delayed 10 mg PO BEDTIME 2 days #4 tabs 12/01/22 release (Dulcolax (bisacodyl)) metoclopramide HCl 10 mg tablet 10 mg PO TID #90 tabs 12/26/22 azathioprine 50 mg tablet 50 mg PO DAILY #30 tabs 01/24/23 prednisone 5 mg tablet 5 mg PO BID #120 tabs 01/24/23 prednisone 10 mg tablet 10 mg PO BID #60 tabs 01/28/23 Allergies Allergy/AdvReac Type Severity Reaction Status Date / Time pollen extracts Allergy Intermediate Runny Nose Verified 01/11/23 09:16 atorvastatin Allergy Mild muscle pain Verified 01/11/23 09:16 blue dye Allergy Mild Unknown Verified 01/11/23 09:16 iodine Allergy Mild Itching Verified 01/11/23 09:16 red dye Allergy Mild Unknown Verified 01/11/23 09:16 tree and shrub pollen Allergy Mild Nasal Verified 01/11/23 09:16 congestion erythromycin base Allergy Nausea and Verified 01/11/23 09:16 Vomiting stevioside [From Stevia] AdvReac Abdominal Verified 01/11/23 09:16 Pain green dye Allergy Severe Headache Uncoded 01/11/23 09:16 molds and smuts Allergy Severe hadache Uncoded 01/11/23 09:16 Review of Systems Review of Systems: Yes all other systems are reviewed and are negative Neurologic: Denies Sensory deficit (Neuro) PMFSH Past Medical History Medical History Cervical radiculopathy Elevated cholesterol Fusion of spine, cervical region History of anesthesia complications Hx of chest pain Hx of gastritis Hx of migraine headaches Ileitis Inflammation of small intestine Multinodular thyroid Osteoarthritis TMJ syndrome Surgical History H/O colonoscopy History of esophagogastroduodenoscopy (EGD) History of spinal fusion Hx of cholecystectomy Hx of dilation and curettage Hx of shoulder surgery Hx of tonsillectomy Hx of tubal ligation S/P thyroid biopsy Family History Family History Mother Diabetes Uterine cancer Hypertension Father Diabetes Hypertension Stroke Social History Social History Household Members: Spouse Are you a primary transitional care manager to a significant other at home: No Do you presently have visiting nurse or other home services: No Alcohol intake: never Patient Tobacco Use Status: Former Tobacco user Quit Date: 1990 Tobacco use type: Cigarette Smoked in Last 30 Days: No Use of substances other than those prescribed or required for medical reasons: No Advance Directives: Yes Advance Directives Information Provided: Yes Advance Directives on File: No Patient : No service: No Current occupational status: employed Current occupation: right hand dominant Physical Exam Vital Signs: Vital Signs: Last Vital Signs Temp 97.3 F 01/28/23 07:55 Pulse 100 01/28/23 07:55 Resp 20 01/28/23 07:55 BP 147/95 H 01/28/23 07:55 Pulse Ox 98 01/28/23 07:55 O2 Del Method Room Air 01/28/23 07:55 BMI result Body Mass Index 27.3 Const: General: healthy appearing Nutritional Appearance: average body habitus Orientation/consciousness: oriented to person and patient oriented x3 Limitations: no limitations HEENT: Head: Yes normal to inspection Ears: external ears normal General nose exam: Normal external nose present Mouth: Normal oral and palatal mucosa present and oropharynx normal Throat: Yes posterior oropharynx normal Eyes: General: appearance normal, both eyes and all related structures Neck: Other: supple Neck: Yes normal visual inspection Chest: Chest palpation & inspection: normal inspection of the chest Resp: Auscultation: clear to auscultation bilaterally Cardio: Jugular venous distension: no JVD Rate: regular rate Rhythm: regular rhythm Heart sounds: S1 normal heart sound present and S2 normal heart sound present GI: Inspection: Yes normal to inspection Palpation (GI): Soft to palpation, nontender and No hepatosplenomegaly present Auscultation: normal bowel sounds : General: Yes no CVA tenderness Back/Spine/Pelvis: Back: no CVA tenderness Skin: General skin exam: no rashes or lesions noted Neuro: General: oriented to person and patient oriented x3 Cranial nerves: Yes CN's II-XII intact bilaterally Motor exam (neuro): 5/5 motor strength present throughout Sensory Exam: No Sensory deficit (Neuro) Extrem: General: Yes normal to inspection Psych: Appearance: grossly normal Course Reevaluation(s) Reevaluation #1: will increase prednisone to 20mg as that was the last time she felt well and have her follow up with her rhuematology Time: 10:00 Medications Administered Discontinued Medications Generic Name Dose Route Start Last Admin Trade Name Rosaline PRN Reason Stop Dose Admin Ondansetron HCl 4 mg 01/28/23 09:27 01/28/23 09:31 Ondansetron Odt 4 Mg Tab.Rapdis TRANSLINGU 01/28/23 09:28 4 mg ONCE ONE Administration Prednisone 20 mg 01/28/23 08:06 01/28/23 08:28 Prednisone 20 Mg Tablet PO 01/28/23 08:07 20 mg ONCE ONE Administration Medical Decision Making Differential Diagnosis Differential Diagnoses: The differential diagnosis associated with the presentation includes (Cardiac ischemia, myocarditis, pericarditis, pneumonia were all considered) Admission/Observation Consideration of admission/observation: Escalation of care including admission/observation considered (upon arrival patient was considered for admission) Lab Data MDM Lab Attestation statement: I reviewed the patient's lab results. (WBC down from prior, renal function normal, troponin negative) 01/28/23 08:53 01/28/23 08:53 Labs: Lab Results 01/28/23 01/28/23 01/28/23 Range/Units 08:53 08:53 08:53 WBC 13.2 H (4.8-10.8) X10*3/uL RBC 4.81 (4.20-5.50) X10*6/uL Hgb 15.1 (12.0-16.0) g/dl Hct 43.9 (37.0-47.0) % MCV 91.3 (80.0-98.0) fL MCH 31.4 (27.0-33.0) pg MCHC 34.4 (31.0-35.0) g/dl RDW 13.2 (11.0-16.0) % Plt Count 361 D (160-400) X10*3/uL MPV 9.6 (9.4-12.3) fL Immature Gran % (Auto) 0.8 H (0.0-0.4) % Neut % (Auto) 82.5 H (45-73) % Lymph % (Auto) 9.3 L (20-40) % Har[place]on % (Auto) 6.8 (2-11) % Eos % (Auto) 0.3 (0-4) % Baso % (Auto) 0.3 (0-2) % Lymph # (Auto) 1.2 (1.2-4.9) X10*3/uL [place] # (Auto) 0.9 (0.1-1.2) X10*3/uL Eos # (Auto) 0.0 (0.0-0.4) X10*3/uL Baso # (Auto) 0.0 (0.0-0.2) X10*3/uL Abs Immat Gran (auto) 0.11 H (0.00-0.03) X10*3/uL Absolute Neuts (auto) 10.9 H (2.0-8.3) x10*3/uL Absolute Nucleated RBC 0.000 (0.0-0.012) X10*3/uL Nucleated RBC % (auto) 0.0 (0.0-0.2) /100WBC Sodium 142 (135-145) mmol/L Potassium 3.8 (3.3-5.1) mmol/L Chloride 104 (96-108) mmol/L Carbon Dioxide 27 (22-29) mmol/L Anion Gap 15 (12-20) BUN 16 (9-16) mg/dL Creatinine 0.86 (0.5-1.4) mg/dL Estim Creat Clear Calc 66.0 Estimated GFR > 60 Random Glucose 119 H (60-115) mg/dL Calcium 9.8 (8.4-10.2) mg/dL Troponin I High Sens < 2.7 D (<3.5-17.0) ng/L Independent Interpretation I performed an independent interpretation of an: EKG (sinus 96, no st or twave changes) and Plain X-Ray (CXR no infiltrate) External Record Review External record reviewed: Outpatient record Tests considered The following testing was considered but not selected: Sed rate, CRP and ddimer were considered but given her recent inflammation elevation it would all be high. CTA of chest was considered but this episode did not sound like pulmonary embolus Prescription Management I considered prescription management with: Antibiotic (considered but no pneumonia on xray) Chronic Conditions Patient?s care impacted by: Other (collagen vascular disease) Discharge Plan Discharge Clinical Impression: Chest pain Patient Disposition: Home, Self-Care Instructions: Chest Pain (ED) Prescriptions: New prednisone 10 mg tablet 10 mg PO BID Qty: 60 0RF No Action metoclopramide HCl 10 mg tablet 10 mg PO TID Qty: 90 0RF azathioprine 50 mg tablet 50 mg PO DAILY Qty: 30 1RF prednisone 5 mg tablet 5 mg PO BID Qty: 120 1RF zolmitriptan [Zomig] 5 mg spray,non-aerosol 1 spray intranasal DAILY PRN (Reason: Migraine Headache) dicyclomine 20 mg tablet 20 mg PO TID PRN (Reason: SPASMS) triamcinolone acetonide [Nasacort Allergy] 55 mcg Aerosol,Whitefish 1 spray INTRANASAL DAILY Rx Instructions: administer into each nostril cyclosporine [Restasis] 0.05 % Dropperette 1 drp OPHTHALMIC (EYE) Q12H acyclovir 400 mg tablet 400 mg PO BID PRN (Reason: Cold Sores) cyclobenzaprine 10 mg tablet 10 mg PO DAILY PRN (Reason: Spasms) fyrssvigqg-ebuuyvlzegshy-mrrv 50-325-40 mg capsule 1 cap PO Q8H MDD 3 PRN (Reason: MIGRAINES) ondansetron HCl 4 mg tablet 4 mg PO DAILY PRN (Reason: Nausea) naproxen sodium [Aleve] 220 mg capsule 220 mg PO Q8H PRN omeprazole 40 mg capsule,delayed release(DR/EC) 40 mg PO DAILY bisacodyl [Dulcolax (bisacodyl)] 5 mg tablet,delayed release (DR/EC) 10 mg PO BEDTIME 2 Days Qty: 4 0RF zolmitriptan 5 mg tablet 5 mg PO lorazepam 0.5 mg tablet 0.5 mg PO hydroxychloroquine 200 mg tablet See Rx Instructions PO DAILY Rx Instructions: 400 mg on even days, 200 mg on odd days orally daily; Referrals: Regina Paz MD [Primary Care Provider] - 5 days
--- NOTE | 2023-01-28 08:06 | ECG_ITS ---
Test Reason : chest pain and pericarditis Blood Pressure : / mmHG Vent. Rate : 099 BPM Atrial Rate : 099 BPM P-R Int : 134 ms QRS Dur : 086 ms QT Int : 338 ms P-R-T Axes : 032 027 045 degrees QTc Int : 433 ms Normal sinus rhythm Normal ECG When compared with ECG of 24-SEP-2022 06:09, Non-specific change in ST segment in Anterior leads Referred By: Richy Mcdaniel Electronically Signed By:GISELA BENOIT
[2023-01-28] MEDS: predniSONE 20 MG TABLET PO (08:28)
[2023-01-28 08:58] LABS: Basophils Percent Auto 0.3 % (0-2); Eosinophils Percent Auto 0.3 % (0-4); Hematocrit 43.9 % (37.0-47.0); Hemoglobin 15.1 g/dl (12.0-16.0); Imm Gran Abs Auto 0.11 X10*3/uL (0.00-0.03); Imm Gran Pct Auto 0.8 % (0.0-0.4); Lymphocytes Absolute Auto 1.2 X10*3/uL (1.2-4.9); Lymphocytes Percent Auto 9.3 % (20-40); Mean Corpuscular HGB Conc 34.4 g/dl (31.0-35.0); Mean Corpuscular Hemoglobin 31.4 pg (27.0-33.0); Mean Corpuscular Volume 91.3 fL (80.0-98.0); Mean Platelet Volume 9.6 fL (9.4-12.3); Monocytes Absolute Auto 0.9 X10*3/uL (0.1-1.2); Monocytes Percent Auto 6.8 % (2-11); Neutrophils Absolute Auto 10.9 x10*3/uL (2.0-8.3); Neutrophils Percent Auto 82.5 % (45-73); Platelet Count 361 X10*3/uL (160-400); Red Blood Count 4.81 X10*6/uL (4.20-5.50); Red Cell Distribution Width 13.2 % (11.0-16.0); White Blood Count 13.2 X10*3/uL (4.8-10.8)
[2023-01-28 08:59] LABS: MANUAL DIFF FLAG NO
[2023-01-28 09:12] LABS: Anion Gap 15 (12-20); Blood Urea Nitrogen 16 mg/dL (9-16); Calcium 9.8 mg/dL (8.4-10.2); Carbon Dioxide 27 mmol/L (22-29); Chloride 104 mmol/L (96-108); Estimated Glomerular Filt Rate > 60; Glucose Random 119 mg/dL (60-115); Potassium 3.8 mmol/L (3.3-5.1); Sodium 142 mmol/L (135-145)
[2023-01-28 09:27] LABS: Troponin-I High Sensitivity < 2.7 ng/L (<3.5-17.0)
[2023-01-28] MEDS: Ondansetron ODT 4 MG TAB.RAPDIS TRANSLINGU (09:31)
== END 2023-01-28 10:31 | disposition home or self-care (01) ==
PROVIDERS: Emergency Provider Emergency Medicine; PCP Internal Medicine
DX: R07.89 Other chest pain (principal); R06.02 Shortness of breath; I31.9 Disease of pericardium, unspecified; Z79.899 Other long term (current) drug therapy; Z87.891 Personal history of nicotine dependence
CPT/HCPCS: 36415; 71045; 80048; 84484; 85025; 93005; 99284

== ENCOUNTER 2023-02-09 10:07 | Outpatient (REF) | payer OTHER, SELFPAY ==
[2023-02-09 10:21] LABS: MANUAL DIFF FLAG NO
[2023-02-09 11:05] LABS: Basophils Absolute Auto 0.1 X10*3/uL (0.0-0.2); Basophils Percent Auto 0.7 % (0-2); Eosinophils Absolute Auto 0.2 X10*3/uL (0.0-0.4); Eosinophils Percent Auto 1.2 % (0-4); Hemoglobin 14.1 g/dl (12.0-16.0); Imm Gran Abs Auto 0.14 X10*3/uL (0.00-0.03); Lymphocytes Absolute Auto 2.7 X10*3/uL (1.2-4.9); Lymphocytes Percent Auto 19.1 % (20-40); Mean Corpuscular HGB Conc 33.6 g/dl (31.0-35.0); Mean Corpuscular Hemoglobin 31.5 pg (27.0-33.0); Mean Platelet Volume 9.5 fL (9.4-12.3); Monocytes Absolute Auto 0.9 X10*3/uL (0.1-1.2); Monocytes Percent Auto 6.7 % (2-11); Neutrophils Percent Auto 71.3 % (45-73); Platelet Count 362 X10*3/uL (160-400); Red Blood Count 4.47 X10*6/uL (4.20-5.50); Red Cell Distribution Width 13.9 % (11.0-16.0); White Blood Count 14.1 X10*3/uL (4.8-10.8)
[2023-02-09 12:50] LABS: Vitamin B12 636 pg/mL (200-900)
[2023-02-09 14:17] LABS: Thyroid Stimulating Hormone 1.61 uIU/mL (0.32-4.0)
[2023-02-09 14:32] LABS: Alanine Aminotransferase 19 U/L (0-31); Albumin Level 3.9 g/dL (3.5-5.0); Alkaline Phosphatase 59 U/L (39-117); Anion Gap 11 (12-20); Aspartate Amino Transferase 16 U/L (5-31); Bilirubin Total 0.2 mg/dL (0.0-1.0); Blood Urea Nitrogen 19 mg/dL (9-16); Calcium 9.1 mg/dL (8.4-10.2); Carbon Dioxide 29 mmol/L (22-29); Chloride 108 mmol/L (96-108); Estimated Glomerular Filt Rate > 60; Glucose Random 54 mg/dL (60-115); Potassium 3.8 mmol/L (3.3-5.1); Sodium 144 mmol/L (135-145); Total Protein 6.5 g/dL (6.5-8.0)
== END 2023-02-09 10:08 | disposition home or self-care (01) ==
LOC: HO.LAB 10:07
PROVIDERS: PCP Internal Medicine; Visit Provider Internal Medicine Rheumatology
DX: Z00.00 Encounter for general adult medical examination without abnormal findings (principal); E04.1 Nontoxic single thyroid nodule; K59.9 Functional intestinal disorder, unspecified; K52.9 Noninfective gastroenteritis and colitis, unspecified; M19.90 Unspecified osteoarthritis, unspecified site
CPT/HCPCS: 36415; 80053; 82607; 84443; 85025

== ENCOUNTER 2023-02-09 10:22 | Outpatient (AMB) | payer OTHER, SELFPAY ==
--- NOTE | 2023-02-09 10:37 | A.OFFVIS_ITS ---
Intake Vital Signs 02/09/23 10:47 Height 5 ft 3 in Weight 154 lb BMI 27.3 BP 128/71 Blood Pressure Location Rt brachial Position Sitting Pulse 84 Intake Visit Reasons: Follow up 5 weeks Intake Note: Patient presents to in office visit today in 5 weeks follow up. CC: Patient states she is doing a little bit better but continues to feel very exhausted. Manager Wound Required: No Accompanied by: Self / Same As Patient Allergies pollen extracts Allergy (Intermediate, Verified 02/22/23 08:44) Runny Nose atorvastatin Allergy (Mild, Verified 02/22/23 08:44) muscle pain blue dye Allergy (Mild, Verified 02/22/23 08:44) Unknown iodine Allergy (Mild, Verified 02/22/23 08:44) Itching red dye Allergy (Mild, Verified 02/22/23 08:44) Unknown tree and shrub pollen Allergy (Mild, Verified 02/22/23 08:44) Nasal congestion erythromycin base Allergy (Verified 02/22/23 08:44) Nausea and Vomiting stevioside [From Stevia] Adverse Reaction (Verified 02/22/23 08:44) Abdominal Pain green dye Allergy (Severe, Uncoded 02/13/23 08:13) Headache molds and smuts Allergy (Severe, Uncoded 02/13/23 08:13) hadache HPI Follow up 5 weeks HPI Details Assessment & Plan (1) Abdominal pain: Code(s): R10.9 - Unspecified abdominal pain Plan: She is seeing a medical sales specialist in [place] and they are doing extensive testing to r/o lupus. Dr. Leonardo started her on plaquenil and with this she is tapering the prednisone and feeling much better. She is having normal BM's and is taking the reglan tid w/o an adverse effects. she no longer has to take laxatives. she will be going back to work. I will continue to try to coordinate with her rheumatology provider since she will try to provide me with their opinions and test results going forward.. I advise her that if rheum did not find any other disease I was planning to start Humira, we discuss the elusiveness of Crohns and the exacerbating/remitting nature of this disease. The colonoscopy shows a great deal of inflammation, but the biopsy and physical appearance is not entirely c/w IBD. However, again this disease can be elusive. We really should repeat this study in 2-3 years, depending on her symptoms and ongoing diagnosis. ROV 6 weeks. (2) Ileitis: Comment: MRE and fecal calprotectin NOT convincing for Crohns. Colonoscopy biopsy inconclusive. 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 TODAY'S VISIT She is now on Imuran along with prednisone and plaquenil....so she does not feel she can return to work paul with COVID increasing again. If she goes below 15mg/day of prednisone she will have upset stomach and pain in the RUQ and LLQ and nausea along with severe fatigue and sleeping, and shoulder pain. AT times she will have CP relieved with prednisone. She still struggles with CIC alt with diarrhea, but may be r/t her fluctuating prednisone doses. She continues to find the reglan very helpful. She will be seeing Dr. Sorto again soon, and they will decide if any changes are needed. Again, if we need to consider something like Humira. ROV May [facility] Medical History Inflammation of small intestine Ileitis History of anesthesia complications Hx of chest pain Fusion of spine, cervical region TMJ syndrome Hx of gastritis Cervical radiculopathy Elevated cholesterol Osteoarthritis Hx of migraine headaches Multinodular thyroid Surgical History Hx of shoulder surgery S/P thyroid biopsy H/O colonoscopy History of esophagogastroduodenoscopy (EGD) History of spinal fusion Hx of dilation and curettage Hx of cholecystectomy Hx of tonsillectomy Hx of tubal ligation Family History Mother Diabetes Uterine cancer Hypertension Father Diabetes Hypertension Stroke Social History Household Members: Spouse Are you a primary physician primary care sports medicine to a significant other at home: No Do you presently have visiting nurse or other home services: No Alcohol intake: never Patient Tobacco Use Status: Former Tobacco user Quit Date: 1990 Tobacco use type: Cigarette service: No Current occupational status: employed Current occupation: right hand dominant Review of Systems Const Reports fatigue, Denies fever(s), Denies night sweats, Denies poor appetite and Denies weight loss ENT Reports Normal hearing present, Denies dental pain, Denies dysphagia, Denies hearing loss, Denies mouth pain, Denies odynophagia, Denies throat swelling, Denies tongue swelling and Reports other (Dentition adequate) Card Reports no additional complaints Resp Reports no additional complaints GI Denies abdominal pain, Denies melena, Reports bloating, Denies hematochezia, Reports constipation, Denies GI cramping, Denies dysphagia, Denies excessive flatus, Denies early satiety, Denies heartburn, Reports diarrhea, Denies nausea, Denies odynophagia, Denies vomiting and Denies hematemesis Musc Reports myalgias Skin/Breast Denies pruritus, Denies lesions, Denies rash and Denies jaundice Neuro Reports Normal hearing present and Denies Abnormal speech present Endo Reports fatigue Aller/Immun Denies throat swelling and Denies tongue swelling Physical Exam Vital Signs: Last Vital Signs Pulse 84 02/09/23 10:47 BP 128/71 02/09/23 10:47 BMI result Body Mass Index 27.3 Const General: cooperative, no acute distress, well developed and well groomed Nutritional Appearance: average body habitus and well nourished Orientation/consciousness: oriented to person, oriented to place and oriented to time Limitations: No language barrier HEENT Head: Yes normocephalic and Yes atraumatic Eyes General: appearance normal, both eyes and all related structures Neck Neck: Yes normal visual inspection Thyroid: Thyroid normal Skin General skin exam: no rashes or lesions noted, turgor normal, skin not dry, no jaundice, No spider nevi and no striae Rashes: no rashes Nails: normal Neuro General: oriented to person, oriented to place and oriented to time Cranial nerves: Yes Normal hearing present Speech: No Abnormal speech present Extrem General: Yes normal to inspection, No clubbing, No cyanosis and No edema Psych Appearance: grossly normal and well kempt Mental Status: mental status grossly normal Speech and movement: Normal speech and movement present Affect: normal affect Attitude: cooperative Thought process: Normal thought process present and not confabulating Thought content: Normal thought content present Insight: Good insight present (Psych) Judgement: Good judgement present (Psych) Assessment & Plan Assessment & Plan (1) Small bowel motility disorder: Code(s): K59.9 - Functional intestinal disorder, unspecified Plan: She is now on Imuran along with prednisone and plaquenil....so she does not feel she can return to work paul with COVID increasing again. If she goes below 15mg/day of prednisone she will have upset stomach and pain in the RUQ and LLQ and nausea along with severe fatigue and sleeping, and shoulder pain. AT times she will have CP relieved with prednisone. She still struggles with CIC alt with diarrhea, but may be r/t her fluctuating prednisone doses. She continues to find the reglan very helpful. She will be seeing Dr. Sorto again soon, and they will decide if any changes are needed. Again, if we need to consider something like Humira. ROV May (2) Ileitis: Comment: MRE and fecal calprotectin NOT convincing for Crohns. Colonoscopy biopsy inconclusive. Code(s): K52.9 - Noninfective gastroenteritis and colitis, unspecified (3) Inflammatory arthritis: Code(s): M19.90 - Unspecified osteoarthritis, unspecified site Medications: New dicyclomine 20 mg PO TID PRN 90 tabs 3RF SPASMS Refilled metoclopramide HCl 10 mg PO TID 270 tabs 1RF K59.9 - Functional intestinal disorder, unspecified Coding Level of Care Code Est Pt Level 3 (11733) Diagnoses Small bowel motility disorder K59.9 Ileitis K52.9 Inflammatory arthritis M19.90
[2023-02-09 10:47] VITALS: BP 128/71; PULSE 84; BMI 27.3
== END 2023-02-09 11:25 | disposition home or self-care (01) ==
PROVIDERS: PCP Pediatrics Adolescent Medicine; Visit Provider Nurse Practitioner
DX: K59.9 Functional intestinal disorder, unspecified (principal); K52.9 Noninfective gastroenteritis and colitis, unspecified; M19.90 Unspecified osteoarthritis, unspecified site
CPT/HCPCS: 99213

== ENCOUNTER 2023-02-13 07:57 | Outpatient (AMB) | payer OTHER, SELFPAY ==
--- NOTE | 2023-02-13 08:02 | MHC.OFFVIS ---
Intake Vital Signs 02/13/23 08:03 Height 5 ft 3 in BMI Reason not done Patient refused/unable BP 112/60 Blood Pressure Location Lt brachial Position Sitting Pulse 90 Pulse Source Pulse Oximeter Temp 97.7 F Temp Source Skin Pulse Oximetry (%) 98 Comment 151 lb today per pt Intake Visit Reasons: pa Intake Note: Patient here for +BRAYDON follow up. Transportation Services Representative Required: No Accompanied by: Self / Same As Patient Allergies pollen extracts Allergy (Intermediate, Verified 02/13/23 08:13) Runny Nose atorvastatin Allergy (Mild, Verified 02/13/23 08:13) muscle pain blue dye Allergy (Mild, Verified 02/13/23 08:13) Unknown iodine Allergy (Mild, Verified 02/13/23 08:13) Itching red dye Allergy (Mild, Verified 02/13/23 08:13) Unknown tree and shrub pollen Allergy (Mild, Verified 02/13/23 08:13) Nasal congestion erythromycin base Allergy (Verified 02/13/23 08:13) Nausea and Vomiting stevioside [From Stevia] Adverse Reaction (Verified 02/13/23 08:13) Abdominal Pain green dye Allergy (Severe, Uncoded 02/13/23 08:13) Headache molds and smuts Allergy (Severe, Uncoded 02/13/23 08:13) hadache HPI HPI Comments History of Present Illness Details The patient returns for evaluation of her inflammatory arthritis. She was taking 5 mg b.i.d. prednisone. The afternoon dose was not really helpful for her and she eventually developed some mid day arthralgias in the neck and shoulders. This was accompanied by some nausea and increased fatigue. She increased the prednisone back to 15 mg once a day and felt much better. She remains on hydroxychloroquine 200 mg alternating with 400 mg daily. I had started her on azathioprine 50 mg daily about 2 weeks ago. She has had no adverse effects with these medications. She admits that with the current prednisone she feels fine and even at 5 mg b.i.d. she had more good days than bad days. There has been no skin rash, fevers, chest pain, or abdominal pain, she also denies any problems recently with constipation or diarrhea. [facility] Medical History (Reviewed 02/09/23 @ 10:46 by Lisandro Duffy [facility]) Inflammation of small intestine Ileitis History of anesthesia complications Hx of chest pain Fusion of spine, cervical region TMJ syndrome Hx of gastritis Cervical radiculopathy Elevated cholesterol Osteoarthritis Hx of migraine headaches Multinodular thyroid Surgical History Hx of shoulder surgery S/P thyroid biopsy H/O colonoscopy History of esophagogastroduodenoscopy (EGD) History of spinal fusion Hx of dilation and curettage Hx of cholecystectomy Hx of tonsillectomy Hx of tubal ligation Family History Mother Diabetes Uterine cancer Hypertension Father Diabetes Hypertension Stroke Social History Household Members: Spouse Are you a primary care trainer to a significant other at home: No Do you presently have visiting nurse or other home services: No Alcohol intake: never Patient Tobacco Use Status: Former Tobacco user Quit Date: 1990 Tobacco use type: Cigarette service: No Current occupational status: employed Current occupation: right hand dominant Review of Systems Const Details: Fatigue tends to come and go and is not predictable. Negative for appetite change, weight change, fever, chills, malaise Eyes Details: She has been having more frequent migraine headaches recently. Negative for vision change, dry eyes the the and dizziness ENT Details: Negative for hearing change, tinnitus, oral ulcer, nose bleeds and oral dryness. Card Details: Negative chest pain, edema and syncope Resp Details: Negative for SOB, cough and wheezing GI Details: Negative indigestion/heartburn, nausea, abdominal pain, bowel changes, diarrhea, constipation and bloody stool. Skin/Breast Details: Negative for itching, rash, hives, Raynaud's symptoms, sun sensitivity, and skin cancer Boom/Lymph Details: Negative for excessive bruising or bleeding. Physical Exam Vital Signs: Last Vital Signs Temp 97.7 F 02/13/23 08:03 Pulse 90 02/13/23 08:03 BP 112/60 02/13/23 08:03 Pulse Ox 98 02/13/23 08:03 APPEARANCE: Patient in no acute distress EYES no redness, pupils equal and reactive to light, eyelids normal. No temporal artery tenderness redness or swelling. EXTREMITIES: No edema, no calf tenderness, normal peripheral pulses. NEURO: Oriented and alert x3. No focal weakness. Reflexes symmetric. Gait normal. SKIN: No inflammatory lesions noted today.. JOINT EXAM:.?? Cervical Spine:.? Full range of motion without pain; no tenderness. Thoracic Spine:.? No scoliosis.? No tenderness on palpation. Lumbar Spine:.? Alignment normal.? Full range of motion without pain, no tenderness. Chest Wall:.? No tenderness, swelling, increased warmth or erythema. Hands:.? Normal pain-free range of motion without tenderness, swelling, increased warmth or erythema. Able to make a full fist and has a good revenue director strength. Wrists:.? Normal pain-free range of motion without tenderness, swelling, increased warmth or erythema. Elbows:. Normal pain-free range of motion without tenderness, swelling, increased warmth or erythema. Shoulders:.?? Full range of motion without pain. No tenderness, weakness, swelling, increased warmth or erythema. Hips:.? Full range of motion without pain. Hip bursa:.? No tenderness. Knees: Normal pain-free range of motion without tenderness, swelling, increased warmth or erythema.? There is no effusion or crepitation Ankles:? Normal pain-free range of motion without tenderness, swelling, increased warmth or erythema. Feet:? Normal pain-free range of motion without tenderness, swelling, increased warmth or erythema. Tender points: The? No tenderness to digital palpation at the occiput, trapezius, second rib, lateral epicondyle, knees, greater trochanter and gluteal area bilaterally. ? 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 At this point she does not seem to be having any GI symptoms. I think it is reasonable to continue treatment as if this were lupus although she does not quite meet all criteria for SLE she did have a positive BRAYDON, pericarditis, and joint complaints. We will have her stay with the 15 mg daily prednisone and since her white count is okay increase the Imuran up to 75 mg on average. She will alternate 50 mg with 100 mg daily. We will check lab work again in about 2 weeks. I encouraged her to continue with light aerobic activity. We will add a sed rate CRP at that point as well. Follow-up in 1 month. Orders: Orders C Reactive Protein Today Z79.60 - nursing home (current) use of unspecified immunomodulators and immunosuppressants Erythrocyte Sedimentation Rate Today Z79.60 - exterminator termite (current) use of unspecified immunomodulators and immunosuppressants Complete Blood Count Auto Diff Today Z79.60 - exterminator termite (current) use of unspecified immunomodulators and immunosuppressants, Z79.899 - Other buttermilk drier operator (current) drug therapy Medications: Changed From azathioprine 50 mg PO DAILY 30 tabs 1RF M19.90 - Unspecified osteoarthritis, unspecified site To azathioprine 75 mg (1.5 x 50 mg) PO DAILY 45 tabs 1RF M19.90 - Unspecified osteoarthritis, unspecified site Coding Level of Care Code Est Pt Level 3 (05283) Diagnoses Long-term use of immunosuppressant medication Z79.60 Inflammatory arthritis M19.90
[2023-02-13 08:03] VITALS: BP 112/60; PULSE 90; TEMP 36.5; O2SAT 98
== END 2023-02-13 08:39 | disposition home or self-care (01) ==
PROVIDERS: PCP Pediatrics Adolescent Medicine; Visit Provider Internal Medicine Rheumatology
DX: Z79.60 Long term (current) use of unspecified immunomodulators and immunosuppressants (principal); M19.90 Unspecified osteoarthritis, unspecified site
CPT/HCPCS: 99213

== ENCOUNTER → 2023-02-13 07:57 | Outpatient (BNVA) | payer OTHER, SELFPAY | PROVIDERS: PCP Pediatrics Adolescent Medicine; Visit Provider Internal Medicine Rheumatology ==

== ENCOUNTER 2023-02-21 10:31 | Outpatient (REF) | payer OTHER, SELFPAY ==
[2023-02-21 15:39] LABS: Free T4 (Free Thyroxine) 0.98 ng/dL (0.71-1.85); Thyroid Stimulating Hormone 0.57 uIU/mL (0.32-4.0)
== END 2023-02-21 10:32 | disposition home or self-care (01) ==
LOC: HO.WFDLDS 10:31
PROVIDERS: Visit Provider Internal Medicine Endocrinology, Diabetes & Metabolism
DX: E04.2 Nontoxic multinodular goiter (principal)
CPT/HCPCS: 36415; 84439; 84443

== ENCOUNTER 2023-02-22 08:34 | Outpatient (AMB) | payer OTHER, SELFPAY ==
--- NOTE | 2023-02-22 08:39 | A.OFFVIS_ITS ---
Intake Vital Signs 02/22/23 08:40 Height 5 ft 3 in Weight 154 lb BMI 27.3 BP 120/86 Blood Pressure Location Lt brachial Position Sitting Pulse 80 Pulse Source Pulse Oximeter Intake Visit Reasons: f/u MNG, pt confirmed Intake Note: Patient present for NTMNG follow up visit. Abstract Manager Required: No Accompanied by: Self / Same As Patient Allergies pollen extracts Allergy (Intermediate, Verified 02/22/23 08:44) Runny Nose atorvastatin Allergy (Mild, Verified 02/22/23 08:44) muscle pain blue dye Allergy (Mild, Verified 02/22/23 08:44) Unknown iodine Allergy (Mild, Verified 02/22/23 08:44) Itching red dye Allergy (Mild, Verified 02/22/23 08:44) Unknown tree and shrub pollen Allergy (Mild, Verified 02/22/23 08:44) Nasal congestion erythromycin base Allergy (Verified 02/22/23 08:44) Nausea and Vomiting stevioside [From Stevia] Adverse Reaction (Verified 02/22/23 08:44) Abdominal Pain green dye Allergy (Severe, Uncoded 02/13/23 08:13) Headache molds and smuts Allergy (Severe, Uncoded 02/13/23 08:13) hadache HPI HPI Comments History of Present Illness Details 57 YO F with PMHx multinodular thyroid who is seen in F/U for a NTMNG. Was initially diagnosed with multinodular thyroid in 2020 with thyroid US revealing bilateral thyroid nodules. She underwent FNA biopsy of a LMP 1.6 cm thyroid nodule 11/18/2020 with benign (bethesda category II) cytology. Thyroid US: 12/16/2021 SIZE: Measurements of the thyroid lobes and nodules are given in sagittal, anteroposterior and transverse dimensions respectively. Right Thyroid Lobe: 5.5 x 1.9 x 2.0 cm, volume 11.2 mL. Previously 5.3 x 2.3 x 1.8 cm, volume 11.5 mL. Parenchyma: The gland echotexture is homogeneous. Thyroid vascularity is normal. Left Thyroid Lobe: 4.7 x 2.1 x 2.3 cm, volume 11.4 mL. Previously 5.1 x 2.2 x 2.1 cm, volume 12.3 mL. Parenchyma: The gland echotexture is homogeneous. Thyroid vascularity is normal. Isthmus: 0.4 cm in maximum AP dimension. Previously 0.3 cm. Estimated total number of nodules greater than or equal to 1 cm: 2. Diabetes Nurse nodules are described as follows: 1.? Location: Right mid. ?? ? Size: 0.45 x 0.25 x 0.42 cm, volume 0.03 mL. ?? ? Previously: 0.40 x 0.30 x 0.30 cm, volume 0.02 mL. ?? ? Nodule characteristics: ?? ? Composition: Spongiform (0). ?? ? Echogenicity: Anechoic (0). ?? ? Shape: Not taller than wide (0). ?? ? Margins: Smooth (0). ?? ? Echogenic Foci: None (0).? ACR TI-RADS total points: 0 Previous: 4 ?? ? ACR TI-RADS category: 1 Previous: 4 ? Significant change in size (>/= 20% in 2 dimensions and minimal increase of 2 mm or 50% or greater increase in volume): Yes ?? ? Change in features: Yes ?? ? Change in ACR TI-RADS risk category: Yes 2.? Location: Right superior. ?? ? Size: 0.40 x 0.21 x 0.34 cm, volume 0.02 mL. ?? ? Previously: Not seen on the previous study. ?? ? Nodule characteristics: ?? ? Composition: Cystic(0). ?? ? ACR TI-RADS total points: 0 ?? ? ACR TI-RADS category: 1 3.? Location: Left mid. ?? ? Size: 1.6 x 1.3 x 1.3 cm, volume 1.5 mL. ?? ? Previously: 1.6 x 1.0 x 1.2 cm, volume 1.0 mL. ?? ? Nodule characteristics: ?? ? Composition: Mixed cystic and solid (1). ?? ? Echogenicity: Hypoechoic (2). ?? ? Shape: Not taller than wide (0). ?? ? Margins: Smooth (0). ?? ? Echogenic Foci: Punctate echogenic foci (3). ? ACR TI-RADS total points: 6 Previous: 6 ?? ? ACR TI-RADS category: 4 Previous: 4 ? Significant change in size (>/= 20% in 2 dimensions and minimal increase of 2 mm or 50% or greater increase in volume): No ?? ? Change in features: No ?? ? Change in ACR TI-RADS risk category: No 4.? Location: Left mid. ?? ? Size: 1.0 x 0.56 x 0.73 cm, volume 0.21 mL. ?? ? Previously: 1.0 x 0.80 x 0.90 cm, volume 0.40 mL. ?? ? Nodule characteristics: ?? ? Composition: Mixed cystic and solid (1). ?? ? Echogenicity: Hypoechoic (2). ?? ? Shape: Not taller than wide (0). ?? ? Margins: Smooth (0). ?? ? Echogenic Foci: None (0).? ACR TI-RADS total points: 3 Previous: 3 ?? ? ACR TI-RADS category: 3 Previous: 3 ? Significant change in size (>/= 20% in 2 dimensions and minimal increase of 2 mm or 50% or greater increase in volume): No ?? ? Change in features: No ?? ? Change in ACR TI-RADS risk category: No NODES: No lymphadenopathy is seen in the tissue surrounding the thyroid gland. Labs: Laboratory Tests 12/15/21 08:50 TSH 0.72 Free T4 1.10 PFSH Medical History Inflammation of small intestine Ileitis History of anesthesia complications Hx of chest pain Fusion of spine, cervical region TMJ syndrome Hx of gastritis Cervical radiculopathy Elevated cholesterol Osteoarthritis Hx of migraine headaches Multinodular thyroid Surgical History Hx of shoulder surgery S/P thyroid biopsy H/O colonoscopy History of esophagogastroduodenoscopy (EGD) History of spinal fusion Hx of dilation and curettage Hx of cholecystectomy Hx of tonsillectomy Hx of tubal ligation Family History Mother Diabetes Uterine cancer Hypertension Father Diabetes Hypertension Stroke Social History Household Members: Spouse Are you a primary nurse care manager to a significant other at home: No Do you presently have visiting nurse or other home services: No Alcohol intake: never Patient Tobacco Use Status: Former Tobacco user Quit Date: 1990 Tobacco use type: Cigarette service: No Current occupational status: employed Current occupation: right hand dominant Physical Exam Vital Signs: Last Vital Signs Pulse 80 02/22/23 08:40 BP 120/86 02/22/23 08:40 BMI result Body Mass Index 27.3 Const Other: Thyroid gland is of normal size weighs about 15 g . There are no thyroid nodules palpated. There is no cervical adenopathy palpated Assessment & Plan Assessment & Plan (1) Multinodular thyroid: Code(s): E04.2 - Nontoxic multinodular goiter Plan: This 56-year-old white female with a history of multinodular goiter status post FNA of left midpole nodule with benign cytology. She appears to be clinically and biochemically euthyroid Plan is for continued observation. Will repeat thyroid ultrasound next year prior to visit Orders: Orders US thyroid 11 Months E04.2 - Nontoxic multinodular goiter Coding Level of Care Code Est Pt Level 3 (74896) Diagnoses Multinodular thyroid E04.2
[2023-02-22 08:40] VITALS: BP 120/86; PULSE 80; BMI 27.3
== END 2023-02-22 09:20 | disposition home or self-care (01) ==
PROVIDERS: PCP Internal Medicine; Visit Provider Internal Medicine Endocrinology, Diabetes & Metabolism
DX: E04.2 Nontoxic multinodular goiter (principal)
CPT/HCPCS: 99213

== ENCOUNTER → 2023-02-22 08:34 | Outpatient (BNVA) | payer OTHER, SELFPAY | PROVIDERS: Visit Provider Internal Medicine Endocrinology, Diabetes & Metabolism ==

== ENCOUNTER 2023-02-27 09:48 | Outpatient (REF) | payer OTHER, SELFPAY ==
[2023-02-27 10:13] LABS: MANUAL DIFF FLAG NO
[2023-02-27 11:07] LABS: Basophils Absolute Auto 0.1 X10*3/uL (0.0-0.2); Basophils Percent Auto 0.4 % (0-2); Eosinophils Absolute Auto 0.1 X10*3/uL (0.0-0.4); Eosinophils Percent Auto 0.6 % (0-4); Hematocrit 44.1 % (37.0-47.0); Lymphocytes Percent Auto 5.2 % (20-40); Mean Corpuscular Hemoglobin 31.5 pg (27.0-33.0); Mean Corpuscular Volume 92.6 fL (80.0-98.0); Mean Platelet Volume 10.1 fL (9.4-12.3); Monocytes Absolute Auto 0.6 X10*3/uL (0.1-1.2); Monocytes Percent Auto 3.3 % (2-11); Neutrophils Absolute Auto 17.3 x10*3/uL (2.0-8.3); Neutrophils Percent Auto 89.5 % (45-73); Platelet Count 266 X10*3/uL (160-400); Red Blood Count 4.76 X10*6/uL (4.20-5.50); White Blood Count 19.3 X10*3/uL (4.8-10.8)
[2023-02-27 11:40] LABS: Alanine Aminotransferase 26 U/L (0-31); Alkaline Phosphatase 62 U/L (39-117); Anion Gap 14 (12-20); Aspartate Amino Transferase 22 U/L (5-31); Bilirubin Total 0.3 mg/dL (0.0-1.0); Blood Urea Nitrogen 19 mg/dL (9-16); C Reactive Protein 1.29 mg/dL (< or = 0.50); Calcium 8.7 mg/dL (8.4-10.2); Carbon Dioxide 21 mmol/L (22-29); Chloride 108 mmol/L (96-108); Estimated Glomerular Filt Rate > 60; Glucose Random 134 mg/dL (60-115); Potassium 3.9 mmol/L (3.3-5.1); Sodium 139 mmol/L (135-145); Total Protein 6.8 g/dL (6.5-8.0)
[2023-02-27 12:00] LABS: Erythrocyte Sedimentation Rate 9 MM/HR (0-20)
== END 2023-02-27 09:49 | disposition home or self-care (01) ==
LOC: HO.LAB 09:48
PROVIDERS: Visit Provider Internal Medicine Rheumatology
DX: Z79.899 Other long term (current) drug therapy (principal); Z79.60 Long term (current) use of unspecified immunomodulators and immunosuppressants
CPT/HCPCS: 36415; 80053; 85025; 85652; 86140

== ENCOUNTER 2023-03-06 11:03 | Outpatient (REF) | payer OTHER, SELFPAY ==
[2023-03-06 13:27] LABS: Alanine Aminotransferase 28 U/L (0-31); Albumin Level 4.1 g/dL (3.5-5.0); Alkaline Phosphatase 68 U/L (39-117); Anion Gap 17 (12-20); Aspartate Amino Transferase 29 U/L (5-31); Bilirubin Total 0.3 mg/dL (0.0-1.0); Blood Urea Nitrogen 15 mg/dL (9-16); C Reactive Protein 0.91 mg/dL (< or = 0.50); Calcium 9.6 mg/dL (8.4-10.2); Carbon Dioxide 23 mmol/L (22-29); Chloride 106 mmol/L (96-108); Estimated Glomerular Filt Rate > 60; Glucose Random 76 mg/dL (60-115); Potassium 3.9 mmol/L (3.3-5.1); Sodium 142 mmol/L (135-145); Total Protein 7.1 g/dL (6.5-8.0)
[2023-03-06 13:35] LABS: Erythrocyte Sedimentation Rate 12 MM/HR (0-20)
[2023-03-12 16:49] LABS: Porphobilinogen, Random Urine 0.185 mg/g creat (<0.22)
== END 2023-03-06 11:04 | disposition home or self-care (01) ==
LOC: HO.LAB 11:03
PROVIDERS: PCP Internal Medicine; Visit Provider Internal Medicine Rheumatology
DX: M19.90 Unspecified osteoarthritis, unspecified site (principal); K52.9 Noninfective gastroenteritis and colitis, unspecified; R10.9 Unspecified abdominal pain; Z79.60 Long term (current) use of unspecified immunomodulators and immunosuppressants; Z79.899 Other long term (current) drug therapy
CPT/HCPCS: 36415; 80053; 82570; 84106; 85025; 85652; 86140

== ENCOUNTER 2023-03-21 07:52 | Outpatient (REF) | payer OTHER, SELFPAY ==
[2023-03-21 08:11] LABS: MANUAL DIFF FLAG NO
[2023-03-21 09:32] LABS: Basophils Absolute Auto 0.1 X10*3/uL (0.0-0.2); Basophils Percent Auto 0.6 % (0-2); Eosinophils Absolute Auto 0.2 X10*3/uL (0.0-0.4); Hemoglobin 15.6 g/dl (12.0-16.0); Imm Gran Abs Auto 0.18 X10*3/uL (0.00-0.03); Imm Gran Pct Auto 1.1 % (0.0-0.4); Lymphocytes Percent Auto 18.4 % (20-40); Mean Corpuscular HGB Conc 33.2 g/dl (31.0-35.0); Mean Corpuscular Hemoglobin 31.2 pg (27.0-33.0); Mean Platelet Volume 10.3 fL (9.4-12.3); Monocytes Absolute Auto 1.2 X10*3/uL (0.1-1.2); Monocytes Percent Auto 7.3 % (2-11); Neutrophils Absolute Auto 11.6 x10*3/uL (2.0-8.3); Neutrophils Percent Auto 71.6 % (45-73); Platelet Count 367 X10*3/uL (160-400); White Blood Count 16.2 X10*3/uL (4.8-10.8)
[2023-03-21 09:59] LABS: C Reactive Protein 0.44 mg/dL (< or = 0.50)
== END 2023-03-21 07:53 | disposition home or self-care (01) ==
LOC: HO.LAB 07:52
PROVIDERS: PCP Internal Medicine; Visit Provider Internal Medicine Rheumatology
DX: K52.9 Noninfective gastroenteritis and colitis, unspecified (principal); R76.8 Other specified abnormal immunological findings in serum; R14.0 Abdominal distension (gaseous); M19.90 Unspecified osteoarthritis, unspecified site
CPT/HCPCS: 36415; 85025; 86140

== ENCOUNTER 2023-03-21 08:16 | Outpatient (AMB) | payer OTHER, SELFPAY ==
[2023-03-21 08:18] VITALS: BP 102/80; PULSE 93; TEMP 36.2; O2SAT 100
--- NOTE | 2023-03-21 08:18 | MHC.OFFVIS ---
Intake Vital Signs 03/21/23 08:18 Height 5 ft 3 in BMI Reason not done Patient refused/unable BP 102/80 Blood Pressure Location Rt brachial Position Sitting Pulse 93 Pulse Source Pulse Oximeter Temp 97.1 F Temp Source Skin Pulse Oximetry (%) 100 Oxygen Delivery Method Room Air Comment 147 per pt Intake Visit Reasons: sle Intake Note: Patient presents today to follow up on SLE. Allergies pollen extracts Allergy (Intermediate, Verified 03/21/23 08:22) Runny Nose atorvastatin Allergy (Mild, Verified 03/21/23 08:22) muscle pain blue dye Allergy (Mild, Verified 03/21/23 08:22) Unknown iodine Allergy (Mild, Verified 03/21/23 08:22) Itching red dye Allergy (Mild, Verified 03/21/23 08:22) Unknown tree and shrub pollen Allergy (Mild, Verified 03/21/23 08:22) Nasal congestion erythromycin base Allergy (Verified 03/21/23 08:22) Nausea and Vomiting azathioprine Adverse Reaction (Severe, Verified 03/21/23 08:22) vomiting and diarrhea stevioside [From Stevia] Adverse Reaction (Verified 03/21/23 08:22) Abdominal Pain green dye Allergy (Severe, Uncoded 03/21/23 08:22) Headache molds and smuts Allergy (Severe, Uncoded 03/21/23 08:22) hadache Medication List - Last Reconciled 03/21/23 by Manjinder Sorto MD acyclovir 400 mg PO BID PRN bisacodyl (Dulcolax (bisacodyl)) 10 mg (2 x 5 mg) PO BEDTIME 2 days cyclobenzaprine 10 mg PO DAILY PRN cyclosporine 0.05% (Restasis) 1 drp ophthalmic (eye) Q12H dicyclomine 20 mg PO TID PRN hydroxychloroquine 300 mg PO DAILY lorazepam 0.5 mg PO metoclopramide HCl 10 mg PO TID omeprazole 40 mg PO DAILY ondansetron HCl 4 mg PO DAILY PRN prednisone 10 mg PO QAM triamcinolone acetonide (Nasacort Allergy) 1 spray intranasal DAILY zolmitriptan (Zomig) 1 spray intranasal DAILY PRN zolmitriptan 5 mg PO HPI HPI Comments History of Present Illness Details Patient returns for evaluation of her joint pains, positive BRAYDON and nausea. In the past 3 weeks the pain in the joints has been less. She remains on 10 mg prednisone daily and 300 mg daily hydroxychloroquine. About a month ago she was started on azathioprine but then seemed to developed nausea and vomiting. This was more prominent than previously. She cut the dose way down to just a half a tablet (25mg) and now we see that there was a regular pattern of her developing the nausea shortly after taking even 25 mg of azathioprine. She does not recall any recent fevers, headaches, oral ulcers, chest pain or abdominal pain. Sometimes the nausea and vomiting accompanied by diarrhea. There is no blood in the stool. She continues to take metoclopramide, dicyclomine, and odansetron on on a p.r.n. basis for her GI symptoms. She has been staying away from naproxen and cyclobenzaprine. [facility] Medical History (Updated 03/20/23 @ 16:26 by Manjinder Sorto MD) Abdominal pain Inflammation of small intestine Ileitis History of anesthesia complications Hx of chest pain Fusion of spine, cervical region TMJ syndrome Hx of gastritis Cervical radiculopathy Elevated cholesterol Osteoarthritis Hx of migraine headaches Multinodular thyroid Surgical History Hx of shoulder surgery S/P thyroid biopsy H/O colonoscopy History of esophagogastroduodenoscopy (EGD) History of spinal fusion Hx of dilation and curettage Hx of cholecystectomy Hx of tonsillectomy Hx of tubal ligation Family History Mother Diabetes Uterine cancer Hypertension Father Diabetes Hypertension Stroke Social History Household Members: Spouse Are you a primary adult day care worker to a significant other at home: No Do you presently have visiting nurse or other home services: No Alcohol intake: never Patient Tobacco Use Status: Former Tobacco user Quit Date: 1990 Tobacco use type: Cigarette service: No Current occupational status: employed Current occupation: right hand dominant Review of Systems Const Details: She thinks she lost some weight when she is vomiting a lot. She still remains fatigue with low energy. Negative for appetite change, fever, chills, malaise Eyes Details: Negative for vision change, dry eyes,headaches and dizziness ENT Details: Negative for hearing change, tinnitus, oral ulcer, nose bleeds and oral dryness. Card Details: Negative chest pain, edema and syncope Resp Details: Negative for SOB, cough and wheezing GI Details: Nausea, vomiting, and loose stools when she takes the azathioprine. She last took it about 2 days ago. She had and I have decided to stop it. She still feels somewhat bloated and wants to take spironolactone. Negative indigestion/heartburn, bowel changes, the constipation and bloody stool. Details: Negative for dysuria, hematuria, nocturia, decreased force/flow and genital discharge Skin/Breast Details: Negative for itching, rash, hives, Raynaud's symptoms, sun sensitivity, and skin cancer Neuro Details: Negative for epilepsy, palsy, stroke, changes in speech, tingling and weakness Boom/Lymph Details: Negative for excessive bruising or bleeding. Physical Exam Vital Signs: Last Vital Signs Temp 97.1 F 03/21/23 08:18 Pulse 93 03/21/23 08:18 BP 102/80 03/21/23 08:18 Pulse Ox 100 03/21/23 08:18 Oxygen Delivery Method Room Air 03/21/23 08:18 APPEARANCE: Patient in no acute distress EYES no redness, pupils equal and reactive to light, eyelids normal. No temporal artery tenderness, redness or swelling. EARS: External ear normal, canal clear and tympanic membrane normal. NOSE/SINUS: Airflow through both nares, no nasal discharge, no bleeding THROAT: Oral mucosa moist, no ulcerations NECK: No thyromegaly or masses, no adenopathy, trachea midline. HEART: Regulrar rhythm, S1-S2 heard, no murmurs, rubs or gallops. LUNG: Clear to percussion and auscultation ABD: Normal bowel sounds, no organomegaly, masses or tenderness. EXTREMITIES: No edema, no calf tenderness, normal peripheral pulses. NEURO: Oriented and alert x3. No focal weakness. Reflexes symmetric. Gait normal. SKIN: No inflammatory or neoplastic lesions. Normal color and turgor JOINT EXAM:.?? Cervical Spine:.? Full range of motion without pain; no tenderness. Thoracic Spine:.? No scoliosis.? No tenderness on palpation. Lumbar Spine:.? Alignment normal.? Full range of motion without pain, no tenderness. Chest Wall:.? No tenderness, swelling, increased warmth or erythema. Hands:.? Normal pain-free range of motion without tenderness, swelling, increased warmth or erythema. Able to make a full fist and has a good lead technician strength. Wrists:.? Normal pain-free range of motion without tenderness, swelling, increased warmth or erythema. Elbows:. Normal pain-free range of motion without tenderness, swelling, increased warmth or erythema. Shoulders:.?? Full range of motion without pain. No tenderness, weakness, swelling, increased warmth or erythema. Hips:.? Full range of motion without pain. Hip bursa:.? No tenderness. Knees: Normal pain-free range of motion without tenderness, swelling, increased warmth or erythema.? There is no effusion or crepitation Ankles:? Normal pain-free range of motion without tenderness, swelling, increased warmth or erythema. Feet:? Normal pain-free range of motion without tenderness, swelling, increased warmth or erythema. Tender points: The? No tenderness to digital palpation at the occiput, trapezius, second rib, lateral epicondyle, knees, greater trochanter and gluteal area bilaterally. ? Results Reviewed Results Reviewed: Laboratory Tests 03/06/23 03/06/23 11:19 Unknown Hgb 15.4 ESR 12 C-Reactive Protein 0.91 H Ur Tiline Porphobilinogen 0.185 Assessment & Plan Assessment & Plan (1) BRAYDON positive: Code(s): R76.8 - Other specified abnormal immunological findings in serum (2) Abdominal bloating: Code(s): R14.0 - Abdominal distension (gaseous) (3) Inflammatory arthritis: Code(s): M19.90 - Unspecified osteoarthritis, unspecified site Plan It appears her GI symptoms were clearly worsened by the azathioprine so we will stop that medicine as we had discussed few days ago on the phone. She will stay with the current dose of prednisone as it seems to be controlling her joint pain symptoms. We await today's values of the acute phase reactants which had been back to normal earlier this month. Additionally the CBC has not shown any significant anemia that she had had initially with this illness. We will continue with the hydroxychloroquine since the general improvement in her symptoms has occurred while she was on that medication. Light aerobic activity is encouraged as tolerated. A recheck in 1 month is recommended. Medications: New prednisone 10 mg PO QAM 30 tabs 2RF M19.90 - Unspecified osteoarthritis, unspecified site Coding Level of Care Code Est Pt Level 3 (45488) Diagnoses BRAYDON positive R76.8 Abdominal bloating R14.0 Inflammatory arthritis M19.90
== END 2023-03-21 08:43 | disposition home or self-care (01) ==
PROVIDERS: PCP Internal Medicine; Visit Provider Internal Medicine Rheumatology
DX: R76.8 Other specified abnormal immunological findings in serum (principal); R14.0 Abdominal distension (gaseous); M19.90 Unspecified osteoarthritis, unspecified site
CPT/HCPCS: 99213

== ENCOUNTER 2023-04-07 06:47 | Emergency (ER) | payer OTHER, SELFPAY ==
--- NOTE | 2023-04-07 | ECG_ITS ---
Test Reason : CHEST PAIN Blood Pressure : / mmHG Vent. Rate : 088 BPM Atrial Rate : 088 BPM P-R Int : 134 ms QRS Dur : 082 ms QT Int : 354 ms P-R-T Axes : 039 -02 037 degrees QTc Int : 428 ms Normal sinus rhythm Normal ECG When compared with ECG of 28-JAN-2023 08:20, No significant change was found Referred By: Swapnil Maloney Electronically Signed By:ADELINE DESAI MD
--- NOTE | ~2023-04-07 | CT_ITS ---
EXAMINATION: CT ANGIOGRAM OF THE CHEST WITH AND WITHOUT CONTRAST (CT PULMONARY ANGIOGRAM FOR PE) CLINICAL INFORMATION: Reason for Exam Pleuritic CP, R/O PE, pericardial/pleural effusion COMPARISON: CT chest from 09/24/2022. TECHNIQUE: Prior to contrast administration, noncontrast localization images were obtained. Subsequently, multidetector volumetric imaging was performed from the thoracic inlet to below the diaphragms following the administration of 80 mL Omnipaque 350 intravenous contrast. No contrast reaction reported Sagittal, coronal, and MIP oblique sagittal reformatted images were obtained on the CT workstation, uploaded to PACS, and reviewed. This CT examination was performed using dose optimization techniques as appropriate, variously including the following: *Automated exposure control *Adjustment of mA and/or kV according to patient size (this includes techniques or standardized protocols for targeted exams where dose is matched to indication/reason for exam; i.e. extremities or head) *Use of iterative reconstruction technique Total exam dose-length product 219 mGy-cm FINDINGS: QUALITY OF STUDY/CONTRAST BOLUS: Satisfactory. PULMONARY ARTERIES: No pulmonary emboli. THORACIC AORTA: No aneurysm. No mediastinal lymphadenopathy seen. There is LUNG: No focal consolidation, nodules or masses. There is discoid atelectasis in the right lower lobe. PLEURA: There is no pleural effusion but pleural thickening on the right MEDIASTINUM: As seen previously circumferential pericardial effusion has been replaced by small posterior pericardial effusion. No evidence of septal bowing or right heart strain. There is nodularity of the left thyroid gland CORONARY ARTERY CALCIFICATION: None visualized on this study. CHEST WALL/AXILLA: No axillary or internal mammary lymphadenopathy. OSSEOUS STRUCTURES: No acute or suspicious osseous abnormality. UPPER ABDOMEN: Unremarkable. No reflux of contrast into the hepatic veins to suggest elevated right heart pressures. CT/CT angio chest PE protocol IMPRESSION: 1. No evidence of pulmonary embolism. 2. Small pericardial effusion. 3. Discoid atelectasis in the right lower lobe. VTE: negative.
[2023-04-07 06:51] VITALS: BP 153/96; PULSE 94; RESP 16; TEMP 36.2; O2SAT 98; BMI 26.4
--- NOTE | 2023-04-07 07:09 | ED.CHESTPAIN ---
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 Patient points to her mid chest when asked to localize the pain she states the pain is a sharp pain which is worse with breathing is worse with lying down flat. She states she does not feel short of breath at rest but gets very short of breath with exertion. Patient states that she has had pleural effusions in the past as well as pericarditis in September of 2022 which was treated with prednisone. The patient states that she does take 10 mg of prednisone daily increased her dose to 20 mg with no improvement of her symptoms. She states she is also having bilateral shoulder pain which the symptoms that she has had in the past with flare-up of her lupus She denied fever, chills, rhinorrhea, sore throat. She states she has a dry nonproductive cough. She denied nausea, vomiting or diarrhea. She denied frequency urgency or dysuria. She denied diffuse myalgias arthralgias. Related Data Home Medications Medication Instructions Recorded Confirmed acyclovir 400 mg tablet 400 mg PO BID PRN Cold Sores 06/27/22 03/21/23 cyclobenzaprine 10 mg tablet 10 mg PO DAILY PRN Spasms 06/27/22 03/21/23 ondansetron HCl 4 mg tablet 4 mg PO DAILY PRN Nausea 06/27/22 03/21/23 zolmitriptan 5 mg nasal spray 1 spray intranasal DAILY PRN 09/24/22 03/21/23 (Zomig) Migraine Headache cyclosporine 0.05 % eye drops in a 1 drp ophthalmic (eye) Q12H 09/25/22 03/21/23 dropperette (Restasis) triamcinolone acetonide 55 mcg 1 spray intranasal DAILY 09/25/22 03/21/23 nasal spray aerosol (Nasacort Allergy) omeprazole 40 mg capsule,delayed 40 mg PO DAILY 10/31/22 03/21/23 release lorazepam 0.5 mg tablet 0.5 mg PO anxiety 01/11/23 03/21/23 zolmitriptan 5 mg tablet 5 mg PO migraine 01/11/23 03/21/23 hydroxychloroquine 200 mg tablet 300 mg PO DAILY 03/21/23 04/07/23 Previous Rx's Medication Instructions Recorded bisacodyl 5 mg tablet,delayed 10 mg (2 x 5 mg) PO BEDTIME 2 days 12/01/22 release (Dulcolax (bisacodyl)) #4 tabs dicyclomine 20 mg tablet 20 mg PO TID PRN SPASMS #90 tabs 02/09/23 metoclopramide HCl 10 mg tablet 10 mg PO TID #270 tabs 02/09/23 prednisone 10 mg tablet 10 mg PO QAM #30 tabs 03/21/23 prednisone 20 mg tablet See Rx Instructions .Route 04/07/23 .COMPLEX 10 days #25 tabs Allergies Allergy/AdvReac Type Severity Reaction Status Date / Time pollen extracts Allergy Intermediate Runny Nose Verified 03/21/23 08:22 atorvastatin Allergy Mild muscle pain Verified 03/21/23 08:22 blue dye Allergy Mild Unknown Verified 03/21/23 08:22 iodine Allergy Mild Itching Verified 03/21/23 08:22 red dye Allergy Mild Unknown Verified 03/21/23 08:22 tree and shrub pollen Allergy Mild Nasal Verified 03/21/23 08:22 congestion erythromycin base Allergy Nausea and Verified 03/21/23 08:22 Vomiting azathioprine AdvReac Severe vomiting Verified 03/21/23 08:22 and diarrhea stevioside [From Stevia] AdvReac Abdominal Verified 03/21/23 08:22 Pain green dye Allergy Severe Headache Uncoded 03/21/23 08:22 molds and smuts Allergy Severe hadache Uncoded 03/21/23 08:22 Review of Systems Review of Systems: Yes all other systems are reviewed and are negative [facility] Past Medical History [facility] Narrative: Social history: She denies tobacco use. She denies alcohol use. She does smoke marijuana to help with her rheumatologic pain, she has not smoked marijuana in 2 days. Medical History Abdominal pain Inflammation of small intestine Ileitis History of anesthesia complications Hx of chest pain Fusion of spine, cervical region TMJ syndrome Hx of gastritis Cervical radiculopathy Elevated cholesterol Osteoarthritis Hx of migraine headaches Multinodular thyroid Surgical History Hx of shoulder surgery S/P thyroid biopsy H/O colonoscopy History of esophagogastroduodenoscopy (EGD) History of spinal fusion Hx of dilation and curettage Hx of cholecystectomy Hx of tonsillectomy Hx of tubal ligation Family History Family History Mother Diabetes Uterine cancer Hypertension Father Diabetes Hypertension Stroke Social History Social History Household Members: Spouse Are you a primary daycare teacher to a significant other at home: No Do you presently have visiting nurse or other home services: No Alcohol intake: never Patient Tobacco Use Status: Former Tobacco user Quit Date: 1990 Tobacco use type: Cigarette Smoked in Last 30 Days: No Use of substances other than those prescribed or required for medical reasons: Yes Substance Use Type: Marijuana Advance Directives: No Advance Directives Information Provided: No Patient : No service: No Current occupational status: employed Current occupation: right hand dominant Physical Exam Vital Signs: Vital Signs: Last Vital Signs Temp 97.1 F 04/07/23 06:51 Pulse 95 04/07/23 11:26 Resp 16 04/07/23 11:26 BP 144/76 H 04/07/23 11:26 Pulse Ox 99 04/07/23 11:26 O2 Del Method Room Air 04/07/23 11:26 BMI result Body Mass Index 26.4 Vital signs were normal except for an elevated blood pressure of 153/96 Exam General: Awake, alert in no distress Head: Normocephalic, atraumatic EENT: PERRL, Lids normal, sclera normal, conjunctiva normal, nose normal , ears normal, throat without erythema or exudates Neck: Supple, no adenopathy, no trachea midline or C-spine tenderness Lung: breath sounds symmetric, no wheezing, rales or rhonchi Chest: symmetric movement, nontender Heart: regular rate and rhythm, normal S1, S2 no murmurs or rubs Abdomen: soft, non-tender, nondistended, normal bowel sounds Back: no vertebral tenderness, no CVAT Extremities: no deformities, moves all extremities symmetrically Skin: no rashes, no lesion, normal color and warmth Neuro: Awake, alert, oriented, normal speech, cranial nerves intact, moves all extremities symmetrically Psych: Pleasant, cooperative Medications Administered Discontinued Medications Generic Name Dose Route Start Last Admin Trade Name Rosaline PRN Reason Stop Dose Admin Sodium Chloride 1,000 mls @ 999 mls/hr 04/07/23 07:25 04/07/23 09:37 Ns IV 04/07/23 08:25 Infused .Q1H1M STA Infusion Iohexol 60 ml 04/07/23 08:58 04/07/23 08:59 Iohexol 350 Mg/Ml 100 Ml Infus..Btl IV 04/07/23 08:59 60 ml ONCE ONE Administration Ketorolac Tromethamine 15 mg 04/07/23 08:24 04/07/23 08:52 Ketorolac Tromethamine 15 Mg/Ml Vial IVPUSH 04/07/23 08:25 15 mg ONCE STA Administration Medical Decision Making Medical Decision Making [facility] Narrative: 57-year-old female PMHx inflammatory arthritis, 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 Patient states that she has had similar symptoms in the past when she has had pleural effusions, pericarditis or flare-up of her lupus. Patient's vital signs were unremarkable except for an elevated blood pressure. Patient's exam was unremarkable pain. Following evaluation was ordered: BMP, CRP, ESR, CBC, CMP, CK, D-dimer, PT/INR, PTT, troponin, urinalysis, COVID-19, flu, RSV, EKG. I also ordered CT pulmonary angiogram PE protocol. The patient does not want pain medications at this time, I did order normal saline IV x1 L. 11:52 Patient's laboratory evaluation revealed an elevated white blood cell count, elevated CRP and ESR pain. Patient also had an elevated D-dimer CT scan pulmonary angiogram PE protocol did not reveal any pulmonary embolism or evidence for pneumonia Patient does have a small pericardial effusion and I suspect that she may have pericarditis as the cause for symptoms. Patient was given Solu-Medrol 125 mg IV. Patient was started on prednisone 60 mg once a day for 5 days, she has then go down to 40 mg once a day for 5 days and then follow-up with Dr. Sorto to determine further prednisone dosing. Differential Diagnosis Differential Diagnoses: The differential diagnosis associated with the presentation includes Differential diagnosis includes but is not limited to pneumonia, pleural effusion, pericardial effusion, pericarditis, pleurisy, flare-up of lupus like syndrome, myocardial infarction, myocardial ischemia Admission/Observation Consideration of admission/observation: Escalation of care including admission/observation considered Lab Data MDM Lab Attestation statement: I reviewed the patient's lab results. My interpretation patient's laboratory evaluation as follows: Elevated WBC 27681. Elevated CRP 8.38. Elevated ESR 28. Influenza, RSV and COVID were negative. D-dimer elevated 263. 04/07/23 07:58 04/07/23 07:59 Labs: Lab Results 04/07/23 04/07/23 04/07/23 Range/Units 07:58 07:59 08:04 WBC 16.3 H (4.8-10.8) X10*3/uL RBC 4.60 (4.20-5.50) X10*6/uL Hgb 14.5 (12.0-16.0) g/dl Hct 41.7 (37.0-47.0) % MCV 90.7 (80.0-98.0) fL MCH 31.5 (27.0-33.0) pg MCHC 34.8 (31.0-35.0) g/dl RDW 14.2 (11.0-16.0) % Plt Count 271 D (160-400) X10*3/uL MPV 9.8 (9.4-12.3) fL Immature Gran % (Auto) 0.6 H (0.0-0.4) % Neut % (Auto) 80.1 H (45-73) % Lymph % (Auto) 9.6 L (20-40) % Delta % (Auto) 9.0 (2-11) % Eos % (Auto) 0.4 (0-4) % Baso % (Auto) 0.3 (0-2) % Lymph # (Auto) 1.6 (1.2-4.9) X10*3/uL Delta # (Auto) 1.5 H (0.1-1.2) X10*3/uL Eos # (Auto) 0.1 (0.0-0.4) X10*3/uL Baso # (Auto) 0.1 (0.0-0.2) X10*3/uL Abs Immat Gran (auto) 0.10 H (0.00-0.03) X10*3/uL Absolute Neuts (auto) 13.1 H (2.0-8.3) x10*3/uL Absolute Nucleated RBC 0.000 (0.0-0.012) X10*3/uL Nucleated RBC % (auto) 0.0 (0.0-0.2) /100WBC ESR 28 H (0-20) MM/HR PT 12.5 (11.1-13.3) SEC INR 1.0 (0.9-1.1) APTT 30.5 (26.0-36.4) SEC D-Dimer High Sensitivty 263 NG/ML Sodium 141 (135-145) mmol/L Potassium 3.6 (3.3-5.1) mmol/L Chloride 107 (96-108) mmol/L Carbon Dioxide 25 (22-29) mmol/L Anion Gap 13 (12-20) BUN 12 (9-16) mg/dL Creatinine 0.83 (0.5-1.4) mg/dL Estim Creat Clear Calc 67.3 Estimated GFR > 60 Random Glucose 99 (60-115) mg/dL Calcium 9.2 (8.4-10.2) mg/dL Total Bilirubin 0.5 (0.0-1.0) mg/dL AST 17 (5-31) U/L ALT 13 (0-31) U/L Alkaline Phosphatase 66 (39-117) U/L Total Creatine Kinase 41 (26-140) U/L Troponin I High Sens < 2.7 (<3.5-17.0) ng/L C-Reactive Protein 8.38 H (< or = 0.50) mg/dL B-Natriuretic Peptide 42 (<100) pg/mL Total Protein 7.1 (6.5-8.0) g/dL Albumin 4.1 (3.5-5.0) g/dL Lipase 15 (8-78) U/L Urine Color Urine Appearance Urine pH (5.0-9.0) Ur Specific [place] (1.005-1.025) Urine Protein (Neg-Trace) mg/dL Urine Glucose (UA) (Negative) mg/dL Urine Ketones (Negative) mg/dL Urine Blood (Negative) Urine Nitrite (Negative) Ur Leukocyte Esterase (Negative) Urine RBC (0-2) /HPF Urine WBC (0-5) /HPF Ur Squamous Epith Cells (0-2) /HPF Urine Bacteria (None Seen) Hyaline Casts (0-2) /LPF Influenza Type A (PCR) NEGATIVE (Negative) Influenza Type B (PCR) NEGATIVE (Negative) RSV RNA Qual (PCR) NEGATIVE (Negative) SARS-CoV-2 RNA (RT-PCR) NEGATIVE (Negative) 04/07/23 Range/Units 10:41 WBC (4.8-10.8) X10*3/uL RBC (4.20-5.50) X10*6/uL Hgb (12.0-16.0) g/dl Hct (37.0-47.0) % MCV (80.0-98.0) fL MCH (27.0-33.0) pg MCHC (31.0-35.0) g/dl RDW (11.0-16.0) % Plt Count (160-400) X10*3/uL MPV (9.4-12.3) fL Immature Gran % (Auto) (0.0-0.4) % Neut % (Auto) (45-73) % Lymph % (Auto) (20-40) % Delta % (Auto) (2-11) % Eos % (Auto) (0-4) % Baso % (Auto) (0-2) % Lymph # (Auto) (1.2-4.9) X10*3/uL Delta # (Auto) (0.1-1.2) X10*3/uL Eos # (Auto) (0.0-0.4) X10*3/uL Baso # (Auto) (0.0-0.2) X10*3/uL Abs Immat Gran (auto) (0.00-0.03) X10*3/uL Absolute Neuts (auto) (2.0-8.3) x10*3/uL Absolute Nucleated RBC (0.0-0.012) X10*3/uL Nucleated RBC % (auto) (0.0-0.2) /100WBC ESR (0-20) MM/HR PT (11.1-13.3) SEC INR (0.9-1.1) APTT (26.0-36.4) SEC D-Dimer High Sensitivty NG/ML Sodium (135-145) mmol/L Potassium (3.3-5.1) mmol/L Chloride (96-108) mmol/L Carbon Dioxide (22-29) mmol/L Anion Gap (12-20) BUN (9-16) mg/dL Creatinine (0.5-1.4) mg/dL Estim Creat Clear Calc Estimated GFR Random Glucose (60-115) mg/dL Calcium (8.4-10.2) mg/dL Total Bilirubin (0.0-1.0) mg/dL AST (5-31) U/L ALT (0-31) U/L Alkaline Phosphatase (39-117) U/L Total Creatine Kinase (26-140) U/L Troponin I High Sens (<3.5-17.0) ng/L C-Reactive Protein (< or = 0.50) mg/dL B-Natriuretic Peptide (<100) pg/mL Total Protein (6.5-8.0) g/dL Albumin (3.5-5.0) g/dL Lipase (8-78) U/L Urine Color Yellow Urine Appearance Clear Urine pH 6.5 (5.0-9.0) Ur Specific [place] >= 1.030 H (1.005-1.025) Urine Protein Negative (Neg-Trace) mg/dL Urine Glucose (UA) Negative (Negative) mg/dL Urine Ketones Negative (Negative) mg/dL Urine Blood Moderate (2+) H (Negative) Urine Nitrite Negative (Negative) Ur Leukocyte Esterase Negative (Negative) Urine RBC 6-10 H (0-2) /HPF Urine WBC 0-5 (0-5) /HPF Ur Squamous Epith Cells 0-2 (0-2) /HPF Urine Bacteria None Seen (None Seen) Hyaline Casts 0-2 (0-2) /LPF Influenza Type A (PCR) (Negative) Influenza Type B (PCR) (Negative) RSV RNA Qual (PCR) (Negative) SARS-CoV-2 RNA (RT-PCR) (Negative) Independent Interpretation I performed an independent interpretation of an: EKG Interpretation: Independent interpretation the patient's 12 EKG is as follows: Normal sinus rhythm with a rate of 88, normal GA interval, QRS duration QTC interval, Q-wave in lead 3, no ST segment elevation, no ST segment depression, no GA interval depression, inverted T-wave in lead 3 otherwise unremarkable T-waves. There is no significant change compared to EKG dated 01/28/2023. Radiology Impression Discussion of test interpretation with radiology: I have reviewed the radiologist's reading. Radiologist Impression: CT angio chest PE protocol IMPRESSION: 1. No evidence of pulmonary embolism. 2. Small pericardial effusion. 3. Discoid atelectasis in the right lower lobe. VTE: negative. Dictated By: Jono Villavicencio MD Prescription Management I considered prescription management with: Other (Prednisone) Chronic Conditions Patient?s care impacted by: Other (Lupus-like rheumatologic condition) Discharge Plan Discharge Clinical Impression: Lupus pericarditis Patient Disposition: Home, Self-Care Instructions: Acute Pericarditis (ED) Additional Instructions: Your symptoms are consistent with pericarditis Your inflammatory markers (WBC, ESR and CRP) were elevated. The CT pulmonary angiogram PE protocol revealed no blood clot in your lungs and no evidence of pneumonia. You do have a small amount of fluid around your heart and this is consistent with pericarditis. Your EKG was unremarkable. Your troponin (marker of heart damage) was below detectable limits which is reassuring The treatment for lupus like pericarditis is to increase your steroids. You received Solu-Medrol 125 mg IV here in the emergency department Tomorrow take prednisone 60 mg once a day for 5 days and then prednisone 40 mg once a day for 5 days. You will need to follow-up with Dr. Sorto to determine further dose of your prednisone. Take Tylenol (acetaminophen) 500 mg pills, 2 pills every 6 hours as needed for pain or fever. Follow-up with your doctor in 2 days. Please return to the emergency department if your symptoms get worse or if you develop any symptoms that are concerning to you. Prescriptions: New prednisone 20 mg tablet See Rx Instructions .ROUTE .COMPLEX 10 Days Qty: 25 0RF Rx Instructions: Day 1-5, 60 mg(3pills), Day 6-10, 40 mg(2pills) No Action zolmitriptan [Zomig] 5 mg spray,non-aerosol 1 spray intranasal DAILY PRN (Reason: Migraine Headache) triamcinolone acetonide [Nasacort Allergy] 55 mcg Aerosol,[place] 1 spray INTRANASAL DAILY Rx Instructions: administer into each nostril cyclosporine [Restasis] 0.05 % Dropperette 1 drp OPHTHALMIC (EYE) Q12H acyclovir 400 mg tablet 400 mg PO BID PRN (Reason: Cold Sores) cyclobenzaprine 10 mg tablet 10 mg PO DAILY PRN (Reason: Spasms) ondansetron HCl 4 mg tablet 4 mg PO DAILY PRN (Reason: Nausea) omeprazole 40 mg capsule,delayed release(DR/EC) 40 mg PO DAILY bisacodyl [Dulcolax (bisacodyl)] 5 mg tablet,delayed release (DR/EC) 10 mg PO BEDTIME 2 Days Qty: 4 0RF zolmitriptan 5 mg tablet 5 mg PO lorazepam 0.5 mg tablet 0.5 mg PO hydroxychloroquine 200 mg tablet 300 mg PO DAILY prednisone 10 mg tablet 10 mg PO QAM Qty: 30 2RF metoclopramide HCl 10 mg tablet 10 mg PO TID Qty: 270 1RF dicyclomine 20 mg tablet 20 mg PO TID PRN (Reason: SPASMS) Qty: 90 3RF
[2023-04-07] MEDS: 0.9 % Sodium Chloride 1,000 ML 999 ML IV (08:03)
[2023-04-07 08:08] LABS: MANUAL DIFF FLAG NO
[2023-04-07 08:10] LABS: Basophils Absolute Auto 0.1 X10*3/uL (0.0-0.2); Basophils Percent Auto 0.3 % (0-2); Eosinophils Absolute Auto 0.1 X10*3/uL (0.0-0.4); Eosinophils Percent Auto 0.4 % (0-4); Hematocrit 41.7 % (37.0-47.0); Hemoglobin 14.5 g/dl (12.0-16.0); Imm Gran Pct Auto 0.6 % (0.0-0.4); Lymphocytes Absolute Auto 1.6 X10*3/uL (1.2-4.9); Lymphocytes Percent Auto 9.6 % (20-40); Mean Corpuscular HGB Conc 34.8 g/dl (31.0-35.0); Mean Corpuscular Hemoglobin 31.5 pg (27.0-33.0); Mean Corpuscular Volume 90.7 fL (80.0-98.0); Mean Platelet Volume 9.8 fL (9.4-12.3); Monocytes Absolute Auto 1.5 X10*3/uL (0.1-1.2); Neutrophils Absolute Auto 13.1 x10*3/uL (2.0-8.3); Neutrophils Percent Auto 80.1 % (45-73); Platelet Count 271 X10*3/uL (160-400); Red Cell Distribution Width 14.2 % (11.0-16.0); White Blood Count 16.3 X10*3/uL (4.8-10.8)
[2023-04-07 08:17] LABS: Prothrombin Time 12.5 SEC (11.1-13.3)
[2023-04-07 08:19] LABS: D Dimer High Sensitivity 263 NG/ML
[2023-04-07 08:19] LABS: Partial Thromboplastin Time 30.5 SEC (26.0-36.4)
[2023-04-07 08:27] LABS: Alanine Aminotransferase 13 U/L (0-31); Albumin Level 4.1 g/dL (3.5-5.0); Alkaline Phosphatase 66 U/L (39-117); Anion Gap 13 (12-20); Aspartate Amino Transferase 17 U/L (5-31); Bilirubin Total 0.5 mg/dL (0.0-1.0); Blood Urea Nitrogen 12 mg/dL (9-16); C Reactive Protein 8.38 mg/dL (< or = 0.50); Calcium 9.2 mg/dL (8.4-10.2); Carbon Dioxide 25 mmol/L (22-29); Chloride 107 mmol/L (96-108); Creatinine Clr Calc Pharmacy 67.3; Estimated Glomerular Filt Rate > 60; Glucose Random 99 mg/dL (60-115); Lipase 15 U/L (8-78); Potassium 3.6 mmol/L (3.3-5.1); Sodium 141 mmol/L (135-145); Total Protein 7.1 g/dL (6.5-8.0)
[2023-04-07 08:34] LABS: B Type Natriuretic Peptide 42 pg/mL (<100)
[2023-04-07 08:37] LABS: Troponin-I High Sensitivity < 2.7 ng/L (<3.5-17.0)
[2023-04-07] MEDS: Ketorolac Tromethamine 15 MG/ML VIAL IVPUSH (08:52)
[2023-04-07] MEDS: iohexoL 350 MG/ML 100 ML INFUS..BTL 60 ML IV (08:59)
[2023-04-07 09:01] LABS: Erythrocyte Sedimentation Rate 28 MM/HR (0-20)
[2023-04-07 09:16] LABS: Influenza A PCR NEGATIVE (Negative); Influenza B PCR NEGATIVE (Negative); Resp Syncy Virus RNA Qual PCR NEGATIVE (Negative); SARS COV2 PCR INHOUSE NEGATIVE (Negative)
[2023-04-07 11:00] LABS: Appearance Urine Clear; Color Urine Yellow; Glucose Urine UA Negative (Negative); Leukocyte Esterase Urine Negative (Negative); Nitrite Urine Negative (Negative); PH 6.5 (5.0-9.0); Specific Gravity - Urine >= 1.030 (1.005-1.025); UMIC TRIGGER UACC YES; Urine Blood Moderate (2+) (Negative); Urine Ketones Negative (Negative); Urine Protein Negative (Neg-Trace)
[2023-04-07 11:02] LABS: Bacteria Urine None Seen (None Seen); Hyaline Casts Urine 0-2 /LPF (0-2); Squamous Epithelial Cell Urine 0-2 /HPF (0-2); WBC Urine 0-5 /HPF (0-5)
[2023-04-07 11:26] VITALS: BP 144/76; PULSE 95; RESP 16; O2SAT 99
[2023-04-07] MEDS: methylPREDNISolone Sod Succ 125 MG/2 ML VIAL IVPUSH (12:11)
== END 2023-04-07 12:18 | disposition home or self-care (01) ==
PROVIDERS: Emergency Provider Emergency Medicine Emergency Medical Services; PCP Internal Medicine
DX: M32.12 Pericarditis in systemic lupus erythematosus (principal); R06.02 Shortness of breath; Z20.822 Contact with and (suspected) exposure to COVID-19; Z20.828 Contact with and (suspected) exposure to other viral communicable diseases; R05.9 Cough, unspecified; E78.5 Hyperlipidemia, unspecified; F12.90 Cannabis use, unspecified, uncomplicated; Z87.891 Personal history of nicotine dependence; Z79.60 Long term (current) use of unspecified immunomodulators and immunosuppressants; Z79.52 Long term (current) use of systemic steroids; Z79.899 Other long term (current) drug therapy
CPT/HCPCS: 0241U; 36415; 71275; 80053; 81001; 81003; 82550; 83690; 83880; 84484; 85025; 85379; 85610; 85652; 85730; 86140; 93005; 96361; 96374; 96375; 99284; 99285; J1885; J2930; Q9967

== ENCOUNTER 2023-04-10 09:02 | Outpatient (REF) | payer OTHER, SELFPAY ==
--- NOTE | ~2023-04-10 | MM_ITS ---
EXAMINATION: BONE DENSITOMETRY CLINICAL INDICATION: Long-term prednisone use. COMPARISON: This is the patient's baseline examination. TECHNIQUE: Using a [employer] DXA System (software version: 13.1) manufactured by [employer], dual-energy x-ray absorptiometry was performed of the lumbar spine and left hip. The images are of good technical quality. Summary results are attached. FINDINGS: LEFT FEMUR, NECK: BMD 0.889 g/cm2, Z-score 0.1, T-score -1.1, osteopenia. LEFT FEMUR, TOTAL: BMD 0.906 g/cm2, Z-score 0.0, T-score -0.8, normal. AP SPINE L1-L4: BMD 1.243 g/cm2, Z-score 1.6, T-score 0.5, normal. IDENTIFIED RISK FACTORS: Menopause, glucocorticoids (chronic), secondary osteoporosis (intestinal or bowel disease). HISTORY OF FRACTURE: None listed. MEDICATIONS: None listed. MM/XR DEXA axial skeleton IMPRESSION: 1. DIAGNOSIS: Osteopenia based on the lowest T-score value of -1.1 in the femoral neck applying World Health Organization criteria. 2. 10-YEAR FRACTURE RISK PREDICTION, FRAX: Major osteoporotic fracture (clinical spine, forearm, hip or shoulder) 6.3%. Hip fracture 0.4%. 3. Treatment Recommendations: NOF guidelines recommend consideration for treatment in postmenopausal women and men age 50 and older presenting with the following: -A hip or vertebral (clinical or morphometric) fracture. -T-score less than or equal to -2.5 at the femoral neck or spine after appropriate evaluation to exclude secondary causes. -Low bone mass at the hip or spine and a 10-year fracture probability by FRAX of greater than or equal to 3% for hip fracture or greater than or equal to 20% for major osteoporotic fracture based on the [place] adapted WHO algorithm. 4. Other Recommendations: All treatment decisions require clinical judgment and consideration of individual patient factors, including patient preferences, comorbidities, previous drug use, risk factors not captured in the FRAX model (e.g. frailty, falls, vitamin D deficiency, increased bone turnover, interval significant decline in bone density) and possible under or overestimation of fracture risk by FRAX. Additional medical evaluation for secondary cause of low bone mineral density may be appropriate. FUTURE SCAN RECOMMENDATION: People with diagnosed cases of osteoporosis or at high risk for fracture should have regular bone mineral density tests. For patients eligible for Medicare, routine testing is allowed once every 2 years. The testing frequency can be increased to one year for patients who have rapidly progressing disease, those who are receiving or discontinuing medical therapy to restore bone mass, or have additional risk factors.
== END 2023-04-10 09:03 | disposition home or self-care (01) ==
LOC: HO.MAMMO 09:02
PROVIDERS: PCP Internal Medicine; Visit Provider Internal Medicine
DX: Z13.820 Encounter for screening for osteoporosis (principal); Z79.899 Other long term (current) drug therapy; Z78.0 Asymptomatic menopausal state
CPT/HCPCS: 77080

== ENCOUNTER 2023-04-10 09:30 | Outpatient (AMB) | payer SELFPAY ==
--- NOTE | 2023-04-10 10:01 | A.OFFVIS_ITS ---
Intake Vital Signs 04/10/23 10:02 Height 5 ft 3 in Weight 151 lb 14.376 oz BMI 26.9 BP 102/60 Blood Pressure Location Lt brachial Position Sitting Pulse 77 Pulse Source Pulse Oximeter Temp 98 F Temp Source Skin Pulse Oximetry (%) 97 Oxygen Delivery Method Room Air Intake Visit Reasons: SLE Intake Note: Patient presents to office for ER follow up. Seen at [facility] on 04/07/23 for pericarditis. Would like to discuss prednisone dose. 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 Accompanied by: Self / Same As Patient Allergies pollen extracts Allergy (Intermediate, Verified 04/10/23 10:01) Runny Nose atorvastatin Allergy (Mild, Verified 04/10/23 10:01) muscle pain blue dye Allergy (Mild, Verified 04/10/23 10:01) Unknown iodine Allergy (Mild, Verified 04/10/23 10:01) Itching red dye Allergy (Mild, Verified 04/10/23 10:01) Unknown tree and shrub pollen Allergy (Mild, Verified 04/10/23 10:01) Nasal congestion erythromycin base Allergy (Verified 04/10/23 10:01) Nausea and Vomiting azathioprine Adverse Reaction (Severe, Verified 04/10/23 10:01) vomiting and diarrhea stevioside [From Stevia] Adverse Reaction (Verified 04/10/23 10:01) Abdominal Pain green dye Allergy (Severe, Uncoded 04/10/23 10:01) Headache molds and smuts Allergy (Severe, Uncoded 04/10/23 10:01) hadache HPI HPI Comments History of Present Illness Details The patient returns for evaluation of her positive BRAYDON, inflammatory arthritis and pericarditis. She was doing fairly well with 300 mg daily hydr oxychloroquine and 10 mg daily prednisone for the past couple of weeks. She read some good days amidstthe bad days . Mostly the bad days are characterized by much fatigue and some shoulder discomfort. However on last she started to develop some pleuritic anterior chest pain, more prominent on the right. This was worse when she would lie down. She did take an extra 10 mg of prednisone on Sunday but still felt quite uncomfortable on Sunday so presented to the emergency room. She also had bilateral shoulder pain that was more painful than it had been for weeks. The shoulder symptoms she says she has had noted before. She never had a fever. There were no small joint arthralgias or swelling the She gets occasional skin lesions that look very tiny and her itchy. She did not have any oral ulcers, thrush, or dry mouth. There were no chills. In the ER they did further workup including blood work, CT of the chest, and ECG. The ER notes were reviewed. She had a small pericardial effusion, right lower lobe atelectasis. There was no pleural effusion, pneumonia or interstitial lung disease. The lab work showed elevated ESR, white count and CRP. This was the pattern of inflammatory response that was noted before. In the ER she received a dose of Solu-Medrol and was put on 60 mg of prednisone daily. She has taken it now for 3 days. The chest pain is gone. She had some constipation crampy pain but no diarrhea or vomiting. [facility] Medical History (Updated 04/10/23 @ 13:46 by Manjinder Sorto MD) Abdominal pain Inflammation of small intestine Ileitis History of anesthesia complications Hx of chest pain Fusion of spine, cervical region TMJ syndrome Hx of gastritis Cervical radiculopathy Elevated cholesterol Osteoarthritis Hx of migraine headaches Multinodular thyroid Surgical History Hx of shoulder surgery S/P thyroid biopsy H/O colonoscopy History of esophagogastroduodenoscopy (EGD) History of spinal fusion Hx of dilation and curettage Hx of cholecystectomy Hx of tonsillectomy Hx of tubal ligation Family History Mother Diabetes Uterine cancer Hypertension Father Diabetes Hypertension Stroke Social History Household Members: Spouse Are you a primary care center manager to a significant other at home: No Do you presently have visiting nurse or other home services: No Alcohol intake: never Patient Tobacco Use Status: Former Tobacco user Quit Date: 1990 Tobacco use type: Cigarette Substance Use Type: Marijuana service: No Current occupational status: employed Current occupation: right hand dominant Review of Systems Const Details: Increased fatigue. Negative for appetite change, weight change, fever, chills, malaise Eyes Details: Negative for vision change, dry eyes,headaches and dizziness ENT Details: Negative for hearing change, tinnitus, oral ulcer, nose bleeds and oral dryness. Card Details: Chest pain as noted above is resolved. Presently negative for chest pain, edema and syncope Resp Details: Negative for SOB, cough and wheezing GI Details: Negative indigestion/heartburn, nausea, abdominal pain, bowel changes, diarrhea, constipation and bloody stool. Details: Negative for dysuria, hematuria, nocturia, decreased force/flow and genital discharge Skin/Breast Details: Again the few tiny papules that is somewhat itchy. She has 1 on her hand today. Negative for hives, Raynaud's symptoms, sun sensitivity, and skin cancer Neuro Details: Negative for epilepsy, palsy, stroke, changes in speech, tingling and weakness Psych Details: Negative for anxiety, depression and stress Endo Details: Negative for polyuria and polydypsia Boom/Lymph Details: Negative for excessive bruising or bleeding. Physical Exam Vital Signs: Last Vital Signs Temp 98 F 04/10/23 10:02 Pulse 77 04/10/23 10:02 BP 102/60 04/10/23 10:02 Pulse Ox 97 04/10/23 10:02 Oxygen Delivery Method Room Air 04/10/23 10:02 BMI result Body Mass Index 26.9 APPEARANCE: Patient in no acute distress EYES no redness, pupils equal and reactive to light, eyelids normal EARS: External ear normal, canal clear and tympanic membrane normal. NOSE/SINUS: Airflow through both nares, no nasal discharge, no bleeding THROAT: Oral mucosa moist, no ulcerations NECK: No thyromegaly or masses, no adenopathy, trachea midline. HEART: Regulrar rhythm, S1-S2 heard, no murmurs, rubs or gallops. LUNG: Clear to percussion and auscultation ABD: Normal bowel sounds, no organomegaly, masses or tenderness. EXTREMITIES: No edema, no calf tenderness, normal peripheral pulses. NEURO: Oriented and alert x3. No focal weakness. Reflexes symmetric. Gait normal. SKIN: Over the left set 3rd MCP there is a small, slightly pink papule, perhaps 2 mm in diameter. It looks like it has been excoriated a bit. No other inflammatory or neoplastic lesions. Tips of the fingers and toes have normal color and turgor JOINT EXAM:?? Cervical Spine:.? Full range of motion without pain; no tenderness. Thoracic Spine:.? No scoliosis.? No tenderness on palpation. Lumbar Spine:.? Alignment normal.? Full range of motion without pain, no tenderness. Chest Wall:.? No tenderness, swelling, increased warmth or erythema. Hands:.? Normal pain-free range of motion without tenderness, swelling, increased warmth or erythema. Able to make a full fist and has a good cook 3 pastry strength. Wrists:.? Normal pain-free range of motion without tenderness, swelling, increased warmth or erythema. Elbows:. Normal pain-free range of motion without tenderness, swelling, increased warmth or erythema. Shoulders:.?? Full range of motion without pain. No tenderness, weakness, swelling, increased warmth or erythema. Hips:.? Full range of motion without pain. Hip bursa:.? No tenderness. Knees:.?? Normal pain-free range of motion without tenderness, swelling, increased warmth or erythema.? There is no effusion or crepitation Ankles:.? Normal pain-free range of motion without tenderness, swelling, increased warmth or erythema. Feet:.? Normal pain-free range of motion without tenderness, swelling, increased warmth or erythema. Tender points:.? No tenderness to digital palpation at the occiput, trapezius, second rib, lateral epicondyle, knees, greater trochanter and gluteal area bilaterally. ? Results Reviewed Results Reviewed: Laboratory Tests 04/07/23 04/07/23 04/07/23 07:58 07:59 07:59 WBC 16.3 H Hgb 14.5 ESR 28 H Creatinine 0.83 Troponin I High Sens < 2.7 C-Reactive Protein 8.[address] [place] [address] [address] Scan Report Signed Patient: Cookie Nielsen MR#: [id number] : 1965 Acct:[id number] Age/Sex: 57 / F ADM Date: 04/07/23 Ordering Physician: Swapnil Maloney MD Date of Service: 04/07/23 Procedure(s): CT angio chest PE protocol Accession Number(s): [id number] cc: Regina Paz MD; Swapnil Maloney MD~ EXAMINATION: CT ANGIOGRAM OF THE CHEST WITH AND WITHOUT CONTRAST (CT PULMONARY ANGIOGRAM FOR PE) CLINICAL INFORMATION: Reason for Exam Pleuritic CP, R/O PE, pericardial/pleural effusion COMPARISON: CT chest from 09/24/2022. TECHNIQUE: Prior to contrast administration, noncontrast localization images were obtained. Subsequently, multidetector volumetric imaging was performed from the thoracic inlet to below the diaphragms following the administration of 80 mL Omnipaque 350 intravenous contrast. No contrast reaction reported Sagittal, coronal, and MIP oblique sagittal reformatted images were obtained on the CT workstation, uploaded to PACS, and reviewed. This CT examination was performed using dose optimization techniques as appropriate, variously including the following: *Automated exposure control *Adjustment of mA and/or kV according to patient size (this includes techniques or standardized protocols for targeted exams where dose is matched to indication/reason for exam; i.e. extremities or head) *Use of iterative reconstruction technique Total exam dose-length product 219 mGy-cm FINDINGS: QUALITY OF STUDY/CONTRAST BOLUS: Satisfactory. PULMONARY ARTERIES: No pulmonary emboli. THORACIC AORTA: No aneurysm. No mediastinal lymphadenopathy seen. There is LUNG: No focal consolidation, nodules or masses. There is discoid atelectasis in the right lower lobe. PLEURA: There is no pleural effusion but pleural thickening on the right MEDIASTINUM: As seen previously circumferential pericardial effusion has been replaced by small posterior pericardial effusion. No evidence of septal bowing or right heart strain. There is nodularity of the left thyroid gland CORONARY ARTERY CALCIFICATION: None visualized on this study. CHEST WALL/AXILLA: No axillary or internal mammary lymphadenopathy. OSSEOUS STRUCTURES: No acute or suspicious osseous abnormality. UPPER ABDOMEN: Unremarkable. No reflux of contrast into the hepatic veins to suggest elevated right heart pressures. CT/CT angio chest PE protocol IMPRESSION: 1. No evidence of pulmonary embolism. 2. Small pericardial effusion. 3. Discoid atelectasis in the right lower lobe. VTE: negative. Dictated By: Jono Villavicencio MD Signed By: <Electronically signed by Jono Villavicencio MD in [place]> 04/07/23 1002 ECG in the ER on April 07 showed normal sinus rhythm without ST changes that would suggest pericarditis. Assessment & Plan Assessment & Plan (1) Inflammatory arthritis: Code(s): M19.90 - Unspecified osteoarthritis, unspecified site (2) BRAYDON positive: Code(s): R76.8 - Other specified abnormal immunological findings in serum (3) Pericarditis associated with systemic lupus erythematosus: Comment: Chest pain and pericardial fluid, August 2022. Recurrence March 2023 Code(s): I31.9 - Disease of pericardium, unspecified; M32.12 - Pericarditis in systemic lupus erythematosus (4) Systemic lupus erythematosus: Code(s): M32.9 - Systemic lupus erythematosus, unspecified Plan She has now had 2 episodes of chest pain with associated pericardial fluid. There is also increased arthralgias with these episodes. This point I think we could call her as having SLE. She has done a bit better since being on the hydroxychloroquine in that she requires less prednisone but clearly had a flare up at the dose of 10 mg daily. I think we should consider the use of Benlysta. She had nausea and vomiting and could not tolerate the azathioprine. I gave her some written information on Benlysta to review. She said she would think about it further. She says she has an appointment in late April at a lupus Clinic in [place] so she may want to seek an opinion from them. At the present time she was instructed to reduce her prednisone: 16- 40 mg daily, 18- 30 mg daily,20 -20 mg daily, 25 - 15 mg daily. She will stay at the 15 mg daily for a while and we will recheck inflammatory markers. She will stay on the hydroxychloroquine. We will aim for follow-up in a month but if she wants to start up on the Benlysta she will let us know. She also has a disability form for private disability policy which I will complete. Orders: Orders Protein Creatinine Ratio, Ur Today M32.9 - Systemic lupus erythematosus, unspecified UA w Microscopic Today M32.9 - Systemic lupus erythematosus, unspecified Coding Level of Care Code Est Pt Level 4 (30015) Diagnoses Inflammatory arthritis M19.90 BRAYDON positive R76.8 Pericarditis associated with systemic lupus erythematosus I31.9; M32.12 Systemic lupus erythematosus M32.9
[2023-04-10 10:02] VITALS: BP 102/60; PULSE 77; TEMP 36.6; O2SAT 97; BMI 26.9
== END 2023-04-10 11:02 | disposition home or self-care (01) ==
PROVIDERS: PCP Internal Medicine; Visit Provider Internal Medicine Rheumatology
DX: M19.90 Unspecified osteoarthritis, unspecified site (principal); R76.8 Other specified abnormal immunological findings in serum; I31.9 Disease of pericardium, unspecified; M32.12 Pericarditis in systemic lupus erythematosus; M32.9 Systemic lupus erythematosus, unspecified
CPT/HCPCS: 99214

== ENCOUNTER 2023-04-23 08:31 | Outpatient (REF) | payer OTHER, SELFPAY ==
[2023-04-23 11:21] LABS: MANUAL DIFF FLAG NO
[2023-04-23 11:33] LABS: Basophils Absolute Auto 0.1 X10*3/uL (0.0-0.2); Basophils Percent Auto 0.6 % (0-2); Eosinophils Absolute Auto 0.1 X10*3/uL (0.0-0.4); Eosinophils Percent Auto 0.7 % (0-4); Hematocrit 42.4 % (37.0-47.0); Hemoglobin 14.3 g/dl (12.0-16.0); Imm Gran Abs Auto 0.13 X10*3/uL (0.00-0.03); Imm Gran Pct Auto 0.8 % (0.0-0.4); Lymphocytes Absolute Auto 2.6 X10*3/uL (1.2-4.9); Lymphocytes Percent Auto 15.3 % (20-40); Mean Corpuscular HGB Conc 33.7 g/dl (31.0-35.0); Mean Platelet Volume 10.4 fL (9.4-12.3); Monocytes Absolute Auto 1.1 X10*3/uL (0.1-1.2); Monocytes Percent Auto 6.2 % (2-11); Neutrophils Absolute Auto 13.1 x10*3/uL (2.0-8.3); Neutrophils Percent Auto 76.4 % (45-73); Platelet Count 304 X10*3/uL (160-400); Red Blood Count 4.61 X10*6/uL (4.20-5.50); Red Cell Distribution Width 14.3 % (11.0-16.0); White Blood Count 17.2 X10*3/uL (4.8-10.8)
[2023-04-23 11:48] LABS: Appearance Urine Clear; Color Urine Yellow; Glucose Urine UA Negative (Negative); Leukocyte Esterase Urine Negative (Negative); Nitrite Urine Negative (Negative); PH 5.5 (5.0-9.0); UMIC TRIGGER UA YES; Urine Blood Small (1+) (Negative); Urine Ketones Negative (Negative); Urine Protein Negative (Neg-Trace)
[2023-04-23 11:55] LABS: Cholesterol 271 mg/dL (<200); HDL Cholesterol 61 mg/dL (>40); LDL Cholesterol Calculated 180 mg/dL (<100); Triglycerides 151 mg/dL (<150)
[2023-04-23 12:20] LABS: Creatinine Urine 56.57 mg/dL; Total Protein Urine Random < 7 mg/dL (<12)
[2023-04-23 12:41] LABS: Erythrocyte Sedimentation Rate 5 MM/HR (0-20)
[2023-04-23 12:54] LABS: Bacteria Urine None Seen (None Seen); Hyaline Casts Urine 0-2 /LPF (0-2); RBC Urine 0-2 /HPF (0-2); Squamous Epithelial Cell Urine 0-2 /HPF (0-2); WBC Urine 0-5 /HPF (0-5)
== END 2023-04-23 08:32 | disposition home or self-care (01) ==
LOC: HO.WFDLDS 08:31
PROVIDERS: Internal Medicine; Visit Provider Internal Medicine Rheumatology
DX: M19.90 Unspecified osteoarthritis, unspecified site (principal); R76.8 Other specified abnormal immunological findings in serum; M32.9 Systemic lupus erythematosus, unspecified; E78.00 Pure hypercholesterolemia, unspecified; Z79.899 Other long term (current) drug therapy
CPT/HCPCS: 36415; 80061; 81001; 82570; 84156; 85025; 85652; 86140

== ENCOUNTER 2023-05-11 08:27 | Outpatient (AMB) | payer OTHER, SELFPAY ==
--- NOTE | 2023-05-11 08:30 | MHC.OFFVIS ---
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: No Accompanied by: Spouse Allergies pollen extracts Allergy (Intermediate, Verified 05/11/23 08:34) Runny Nose atorvastatin Allergy (Mild, Verified 05/11/23 08:34) muscle pain blue dye Allergy (Mild, Verified 05/11/23 08:34) Unknown iodine Allergy (Mild, Verified 05/11/23 08:34) Itching red dye Allergy (Mild, Verified 05/11/23 08:34) Unknown tree and shrub pollen Allergy (Mild, Verified 05/11/23 08:34) Nasal congestion erythromycin base Allergy (Verified 05/11/23 08:34) Nausea and Vomiting azathioprine Adverse Reaction (Severe, Verified 05/11/23 08:34) vomiting and diarrhea stevioside [From Stevia] Adverse Reaction (Verified 05/11/23 08:34) Abdominal Pain green dye Allergy (Severe, Uncoded 04/10/23 10:01) Headache molds and smuts Allergy (Severe, Uncoded 04/10/23 10:01) hadache HPI HPI Comments History of Present Illness Details Divina comes for follow-up. She had recent appointment Rheumatology and with recent multiple episodes of inflammatory conditions including recurrent chest pain with pericarditis, she has been diagnosed with SLE. She says she continues to have symptoms of fatigue and she has 6-8 days out of months she feels really poorly. She is currently on 50 mg of prednisone which controls of chest pain. When the dose of prednisone goes down to 10 mg she has recurrent bouts of chest pain similar to a pericarditis. She is currently taking hydroxychloroquine. She is scheduled to see [facility] specialist in [place] tomorrow to discuss other options for disease modifying agents that will reduce the use of prednisone. She does not like using prednisone she has gained some weight and eating some memory issues. Recently LDL was 180 and she has restarted taking 5 mg of Crestor. She has no other exertional symptoms. Her EKG done in March was normal with normal sinus rhythm. [facility] Medical History Abdominal pain Inflammation of small intestine Ileitis History of anesthesia complications Hx of chest pain Fusion of spine, cervical region TMJ syndrome Hx of gastritis Cervical radiculopathy Elevated cholesterol Osteoarthritis Hx of migraine headaches Multinodular thyroid Surgical History Hx of shoulder surgery S/P thyroid biopsy H/O colonoscopy History of esophagogastroduodenoscopy (EGD) History of spinal fusion Hx of dilation and curettage Hx of cholecystectomy Hx of tonsillectomy Hx of tubal ligation Family History Mother Diabetes Uterine cancer Hypertension Father Diabetes Hypertension Stroke Social History Household Members: Spouse Are you a primary resident care associate to a significant other at home: No Do you presently have visiting nurse or other home services: No Alcohol intake: never Patient Tobacco Use Status: Former Tobacco user Quit Date: 1990 Tobacco use type: Cigarette Substance Use Type: Marijuana service: No Current occupational status: employed Current occupation: right hand dominant Review of Systems Const Reports chills, Reports fatigue, Reports fever(s), Reports frequent falls, Reports weakness, Reports weight gain and Reports weight loss ENT Reports dizziness Card Reports chest pain, Reports leg edema, Reports lightheadedness, Reports palpitations, Reports dyspnea and Reports dyspnea on exertion Resp Reports cough, Reports dyspnea and Reports dyspnea on exertion GI Reports hematochezia Musc Reports abnormal gait, Reports muscle weakness, Reports numbness, Reports radiating pain into limb and Reports tingling Neuro Denies Abnormal speech present, Reports abnormal gait, Reports dizziness, Reports frequent falls, Reports numbness, Reports tingling and Reports weakness Endo Reports fatigue and Reports palpitations Physical Exam Vital Signs: Last Vital Signs Pulse 74 05/11/23 08:31 BP 120/70 05/11/23 08:31 BMI result Body Mass Index 27.8 Const General: cooperative, comfortable, no acute distress, alert, awake, Physically active and well groomed Nutritional Appearance: average body habitus Orientation/consciousness: patient oriented x3 Limitations: no limitations HEENT Head: Yes normocephalic and Yes atraumatic Neck Neck: Yes trachea midline, Yes supple and Yes no JVD Chest Chest palpation & inspection: normal inspection of the chest Resp Effort & Inspection: normal respiratory effort Auscultation: clear to auscultation bilaterally Cardio Jugular venous distension: no JVD Palpation: normal PMI Rate: regular rate Rhythm: regular rhythm Heart sounds: S1 normal heart sound present, S2 normal heart sound present, no click, no gallops, no murmurs and no rubs Bruits: no carotid bruits GI Auscultation: normal bowel sounds Skin General skin exam: no rashes or lesions noted Neuro General: patient oriented x3 and no focal motor deficits Speech: No Abnormal speech present Extrem General: Yes no clubbing, cyanosis or edema Psych Appearance: grossly normal Assessment & Plan Assessment & Plan (1) Hyperlipidemia: Code(s): E78.5 - Hyperlipidemia, unspecified Plan: Hyperlipidemia with family hyperlipidemia with calcium score of 0 which is good for her but I think she should be treated for hyperlipidemia. She has restarted taking Crestor 5 mg after seeing the most recent lipid panel. I have advised her to continue take Crestor 5 mg and follow-up lipid panel in 2 months to see the response. Would try to get LDL cholesterol closer to 100 mg/dL if possible. This was discussed with her. She understands. (2) Pericarditis associated with systemic lupus erythematosus: Comment: Chest pain and pericardial fluid, August 2022. Recurrence March 2023 Code(s): I31.9 - Disease of pericardium, unspecified; M32.12 - Pericarditis in systemic lupus erythematosus Plan: She has recurrent chest pain with small pericardial effusion which has improved with anti-inflammatory therapy with elevated inflammatory markers. This is consistent with pericarditis but this is secondary to systemic autoimmune disease with SLE. The primary target and focus of treatment should be treating underlying autoimmune disorder to improve and reduce risk of recurrent pericarditis. She is currently on higher dose of prednisone on top of hydroxychloroquine. She needs a 2nd agent and she is going to see [facility] specialist in [place] to further discuss this. If pericarditis becomes an issue colchicine can be also use an anti-inflammatory therapy but does not modify her disease. Will follow up in the clinic in 1 year's time, sooner p.r.n.. Thank you for allowing me to partake in her care Coding Level of Care Code Est Pt Level 3 (70833) Diagnoses Hyperlipidemia E78.5 Pericarditis associated with systemic lupus erythematosus I31.9; M32.12
[2023-05-11 08:31] VITALS: BP 120/70; PULSE 74; BMI 27.8
== END 2023-05-11 08:59 | disposition home or self-care (01) ==
PROVIDERS: Visit Provider Internal Medicine Cardiovascular Disease
DX: E78.5 Hyperlipidemia, unspecified (principal); I31.9 Disease of pericardium, unspecified; M32.12 Pericarditis in systemic lupus erythematosus
CPT/HCPCS: 99213

== ENCOUNTER → 2023-05-11 08:27 | Outpatient (BNVA) | payer OTHER, SELFPAY | PROVIDERS: Visit Provider Internal Medicine Cardiovascular Disease ==

== ENCOUNTER 2023-05-14 10:34 | Outpatient (REF) | payer OTHER, SELFPAY ==
[2023-05-14 14:43] LABS: MANUAL DIFF FLAG NO
[2023-05-14 14:46] LABS: Basophils Absolute Auto 0.1 X10*3/uL (0.0-0.2); Basophils Percent Auto 0.4 % (0-2); Eosinophils Absolute Auto 0.1 X10*3/uL (0.0-0.4); Eosinophils Percent Auto 0.4 % (0-4); Hematocrit 41.6 % (37.0-47.0); Hemoglobin 14.4 g/dl (12.0-16.0); Imm Gran Abs Auto 0.14 X10*3/uL (0.00-0.03); Imm Gran Pct Auto 0.6 % (0.0-0.4); Lymphocytes Absolute Auto 1.2 X10*3/uL (1.2-4.9); Lymphocytes Percent Auto 5.4 % (20-40); Mean Corpuscular HGB Conc 34.6 g/dl (31.0-35.0); Mean Corpuscular Hemoglobin 31.9 pg (27.0-33.0); Monocytes Percent Auto 4.5 % (2-11); Neutrophils Absolute Auto 19.8 x10*3/uL (2.0-8.3); Neutrophils Percent Auto 88.7 % (45-73); Platelet Count 279 X10*3/uL (160-400); Red Blood Count 4.52 X10*6/uL (4.20-5.50); Red Cell Distribution Width 14.1 % (11.0-16.0); White Blood Count 22.3 X10*3/uL (4.8-10.8)
[2023-05-14 15:25] LABS: Erythrocyte Sedimentation Rate 10 MM/HR (0-20)
[2023-05-16 02:34] LABS: CRP High Sensitivity >10.0 mg/L
== END 2023-05-14 10:35 | disposition home or self-care (01) ==
LOC: HO.WFDLDS 10:34
PROVIDERS: Visit Provider Nurse Practitioner Family
DX: M32.9 Systemic lupus erythematosus, unspecified (principal)
CPT/HCPCS: 36415; 85025; 85652; 86141

== ENCOUNTER 2023-05-22 11:10 | Outpatient (AMB) | payer OTHER, SELFPAY ==
--- NOTE | 2023-05-22 11:11 | MHC.OFFVIS ---
Intake Vital Signs 05/22/23 11:15 Height 5 ft 3 in Weight 159 lb 2.78 oz BMI 28.2 BP 122/82 Blood Pressure Location Lt brachial Position Sitting Pulse 72 Pulse Source Pulse Oximeter Temp 97 F Temp Source Skin Pulse Oximetry (%) 98 Oxygen Delivery Method Room Air Intake Visit Reasons: sle Intake Note: Patient last seen 04/10/23, presents today for follow up and test results. Medical Assistant Cardiology Required: No Accompanied by: Spouse Allergies pollen extracts Allergy (Intermediate, Verified 05/22/23 11:12) Runny Nose atorvastatin Allergy (Mild, Verified 05/22/23 11:12) muscle pain blue dye Allergy (Mild, Verified 05/22/23 11:12) Unknown iodine Allergy (Mild, Verified 05/22/23 11:12) Itching red dye Allergy (Mild, Verified 05/22/23 11:12) Unknown tree and shrub pollen Allergy (Mild, Verified 05/22/23 11:12) Nasal congestion erythromycin base Allergy (Verified 05/22/23 11:12) Nausea and Vomiting azathioprine Adverse Reaction (Severe, Verified 05/22/23 11:12) vomiting and diarrhea stevioside [From Stevia] Adverse Reaction (Verified 05/22/23 11:12) Abdominal Pain green dye Allergy (Severe, Uncoded 05/22/23 11:12) Headache molds and smuts Allergy (Severe, Uncoded 05/22/23 11:12) hadache HPI HPI Comments History of Present Illness Details The patient returns for evaluation of her SLE. She remains on hydroxychloroquine 300 mg daily. She is presently at 15 mg daily prednisone. She has not had had any chest pain for the past 2 weeks. She was recently seen at [facility]. They convinced her to take 0.6 mg daily colchicine. That has been tolerated so far well and she feels much better in the last 3 days with improvement in her fatigue. She has not had any recent joint or chest pain. There have not been any fevers or skin rashes and the colchicine so far has not causee any diarrhea or abdominal cramping. She tells me the plan is to keep her on the colchicine and after a few weeks try to start to taper the prednisone again. They said they would follow her up at [facility]. There are some other blood tests that are pending. She did have a number of tests repeated. Rheumatoid factor and CCP antibody remain negative. Anca is pending. [facility] Medical History Abdominal pain Inflammation of small intestine Ileitis History of anesthesia complications Hx of chest pain Fusion of spine, cervical region TMJ syndrome Hx of gastritis Cervical radiculopathy Elevated cholesterol Osteoarthritis Hx of migraine headaches Multinodular thyroid Surgical History Hx of shoulder surgery S/P thyroid biopsy H/O colonoscopy History of esophagogastroduodenoscopy (EGD) History of spinal fusion Hx of dilation and curettage Hx of cholecystectomy Hx of tonsillectomy Hx of tubal ligation Family History Mother Diabetes Uterine cancer Hypertension Father Diabetes Hypertension Stroke Social History Household Members: Spouse Are you a primary healthcare educator to a significant other at home: No Do you presently have visiting nurse or other home services: No Alcohol intake: never Patient Tobacco Use Status: Former Tobacco user Quit Date: 1990 Tobacco use type: Cigarette Substance Use Type: Marijuana service: No Current occupational status: employed Current occupation: right hand dominant Review of Systems Const Details: She has done well with less fatigue in the last few days but this pattern has occurred before. Negative for appetite change, weight change, fever, chills, malaise Eyes Details: Negative for vision change, dry eyes,headaches and dizziness ENT Details: Negative for hearing change, tinnitus, oral ulcer, nose bleeds and oral dryness. Card Details: Negative chest pain, edema and syncope Resp Details: Negative for SOB, cough and wheezing GI Details: Negative indigestion/heartburn, nausea, abdominal pain, bowel changes, diarrhea, constipation and bloody stool. Details: Negative for dysuria, hematuria, nocturia, decreased force/flow and genital discharge Skin/Breast Details: Negative for itching, rash, hives, Raynaud's symptoms, sun sensitivity, and skin cancer Neuro Details: Negative for epilepsy, palsy, stroke, changes in speech, tingling and weakness Psych Details: Negative for anxiety, depression and stress Endo Details: Negative for polyuria and polydypsia Boom/Lymph Details: Negative for excessive bruising or bleeding. Physical Exam Vital Signs: Last Vital Signs Temp 97 F 05/22/23 11:15 Pulse 72 05/22/23 11:15 BP 122/82 05/22/23 11:15 Pulse Ox 98 05/22/23 11:15 Oxygen Delivery Method Room Air 05/22/23 11:15 BMI result Body Mass Index 28.2 APPEARANCE: Patient in no acute distress EYES no redness, pupils equal and reactive to light, eyelids normal EARS: External ear normal, canal clear and tympanic membrane normal. NOSE/SINUS: Airflow through both nares, no nasal discharge, no bleeding THROAT: Oral mucosa moist, no ulcerations NECK: No thyromegaly or masses, no adenopathy, trachea midline. HEART: Regulrar rhythm, S1-S2 heard, no murmurs, rubs or gallops. LUNG: Clear to percussion and auscultation ABD: Normal bowel sounds, no organomegaly, masses or tenderness. EXTREMITIES: No edema, no calf tenderness, normal peripheral pulses. SKIN: No inflammatory or neoplastic lesions. Tips of the fingers and toes have normal color and turgor JOINT EXAM:?? Cervical Spine:.? Full range of motion without pain; no tenderness. Thoracic Spine:.? No scoliosis.? No tenderness on palpation. Lumbar Spine:.? Alignment normal.? Full range of motion without pain, no tenderness. Chest Wall:.? No tenderness, swelling, increased warmth or erythema. Hands:.? Normal pain-free range of motion without tenderness, swelling, increased warmth or erythema. Able to make a full fist and has a good oiler bander strength. Wrists:.? Normal pain-free range of motion without tenderness, swelling, increased warmth or erythema. Elbows:. Normal pain-free range of motion without tenderness, swelling, increased warmth or erythema. Shoulders:.?? Full range of motion without pain. No tenderness, weakness, swelling, increased warmth or erythema. Hips:.? Full range of motion without pain. Hip bursa:.? No tenderness. Knees:.?? Normal pain-free range of motion without tenderness, swelling, increased warmth or erythema.? There is no effusion or crepitation Ankles:.? Normal pain-free range of motion without tenderness, swelling, increased warmth or erythema. Feet:.? Normal pain-free range of motion without tenderness, swelling, increased warmth or erythema. Tender points:.? No tenderness to digital palpation at the occiput, trapezius, second rib, lateral epicondyle, knees, greater trochanter and gluteal area bilaterally. Results Reviewed Results Reviewed: Laboratory Tests 04/07/23 04/23/23 05/14/23 07:59 08:34 10:37 WBC 22.3 H Hgb 14.4 ESR 10 C-Reactive Protein 8.38 H 0.10 C-React Prot High Sens >10.0 H Assessment & Plan Assessment & Plan (1) Pericarditis associated with systemic lupus erythematosus: Comment: Chest pain and pericardial fluid, August 2022. Recurrence March 2023 Code(s): I31.9 - Disease of pericardium, unspecified; M32.12 - Pericarditis in systemic lupus erythematosus Plan Her latest flare-up of pericarditis was back on April 07. Now with prednisone she seems well controlled. Hopefully the addition of the colchicine will allow further taper of the prednisone in the future. She should remain on the hydroxychloroquine. She said the doctors and at [facility] were not quite sure she had SLE but thought that the treatment with colchicine would be helpful. This is a reasonable course of action. She says they are planning to follow her up in [place] so we will not make another appointment in our department for now. Coding Level of Care Code Est Pt Level 3 (14925) Diagnoses Pericarditis associated with systemic lupus erythematosus I31.9; M32.12
[2023-05-22 11:15] VITALS: BP 122/82; PULSE 72; TEMP 36.1; O2SAT 98; BMI 28.2
== END 2023-05-22 11:52 | disposition home or self-care (01) ==
PROVIDERS: PCP Internal Medicine; Visit Provider Internal Medicine Rheumatology
DX: I31.9 Disease of pericardium, unspecified (principal); M32.12 Pericarditis in systemic lupus erythematosus
CPT/HCPCS: 99213

== ENCOUNTER → 2023-05-22 11:10 | Outpatient (BNVA) | payer OTHER, SELFPAY | PROVIDERS: PCP Internal Medicine; Visit Provider Internal Medicine Rheumatology ==

== ENCOUNTER 2023-06-12 08:04 | Outpatient (AMB) | payer OTHER, SELFPAY ==
--- NOTE | 2023-06-12 08:06 | MHC.OFFVIS ---
Intake Vital Signs 06/12/23 08:08 Height 5 ft 3 in Weight 154 lb BMI 27.3 BP 112/68 Blood Pressure Location Lt brachial Position Sitting Pulse 93 Intake Visit Reasons: 4 month follow up Intake Note: Cookie presents in the office as a 4 month follow up. CC: She would like to talk about the updated information that you guys have gathered. Allergies pollen extracts Allergy (Intermediate, Verified 06/12/23 08:08) Runny Nose atorvastatin Allergy (Mild, Verified 06/12/23 08:08) muscle pain blue dye Allergy (Mild, Verified 06/12/23 08:08) Unknown iodine Allergy (Mild, Verified 06/12/23 08:08) Itching red dye Allergy (Mild, Verified 06/12/23 08:08) Unknown tree and shrub pollen Allergy (Mild, Verified 06/12/23 08:08) Nasal congestion erythromycin base Allergy (Verified 06/12/23 08:08) Nausea and Vomiting azathioprine Adverse Reaction (Severe, Verified 06/12/23 08:08) vomiting and diarrhea stevioside [From Stevia] Adverse Reaction (Verified 06/12/23 08:08) Abdominal Pain green dye Allergy (Severe, Uncoded 06/12/23 08:08) Headache molds and smuts Allergy (Severe, Uncoded 06/12/23 08:08) hadache HPI 4 month follow up HPI Details Assessment & Plan (1) Small bowel motility disorder: Code(s): K59.9 - Functional intestinal disorder, unspecified Plan: She is now on Imuran along with prednisone and plaquenil....so she does not feel she can return to work paul with COVID increasing again. If she goes below 15mg/day of prednisone she will have upset stomach and pain in the RUQ and LLQ and nausea along with severe fatigue and sleeping, and shoulder pain. AT times she will have CP relieved with prednisone. She still struggles with CIC alt with diarrhea, but may be r/t her fluctuating prednisone doses. She continues to find the reglan very helpful. She will be seeing Dr. Sorto again soon, and they will decide if any changes are needed. Again, if we need to consider something like Humira. ROV May (2) Ileitis: Comment: MRE and fecal calprotectin NOT convincing for Crohns. Colonoscopy biopsy inconclusive. Code(s): K52.9 - Noninfective gastroenteritis and colitis, unspecified (3) Inflammatory arthritis: Code(s): M19.90 - Unspecified osteoarthritis, unspecified site Medications: New dicyclomine 20 mg PO TID PRN 9 0 tabs 3RF SPASMS Refilled metoclopramide HCl 10 mg PO TID 270 t abs 1RF K59.9 - Functional intestinal disord er, unspecified TODAY'S VISIT She is still struggling with fatigue, she is unable to return to work, probably needs to retire. She is here today with her who is supportive. She is struggling with CIC but still will have random episodes of diarrhea. Her Rheum will be managed at [facility] now as Dr. Leonardo retired. She will be having a salivary gland biopsy soon, and they think she has an endocrine problem as she has frequent severe hot flashes. She continues on reglan, omeprazole and bentyl. She is going to go to 40mg qod to wean the omeprazole as she has not had upper GI sx. This is fine and I can provide 20mg if needed. She is on colchicine now along with prednsone and hydroxychloroqinoline. She stil wants to wean sonia prednisone but I caution her that she needs to do this VERY SLOWLY as she had had a lot of rebound inflammation when she has tried to wean in the past. ROV 6 mos. PFSH Medical History (Updated 06/12/23 @ 13:10 by HALEY Lara) Esophageal candidiasis Ileitis Abdominal pain Inflammation of small intestine History of anesthesia complications Hx of chest pain Fusion of spine, cervical region TMJ syndrome Hx of gastritis Cervical radiculopathy Elevated cholesterol Osteoarthritis Hx of migraine headaches Multinodular thyroid Surgical History Hx of shoulder surgery S/P thyroid biopsy H/O colonoscopy History of esophagogastroduodenoscopy (EGD) History of spinal fusion Hx of dilation and curettage Hx of cholecystectomy Hx of tonsillectomy Hx of tubal ligation Family History Mother Diabetes Uterine cancer Hypertension Father Diabetes Hypertension Stroke Family/Other Colon cancer Social History Household Members: Spouse Are you a primary pharmacy care coordinator to a significant other at home: No Do you presently have visiting nurse or other home services: No Alcohol intake: never Patient Tobacco Use Status: Former Tobacco user Quit Date: 1990 Tobacco use type: Cigarette Substance Use Type: Marijuana service: No Current occupational status: employed Current occupation: right hand dominant Review of Systems Const Reports body aches, Reports fatigue, Denies fever(s), Reports lethargy, Denies night sweats, Denies poor appetite and Denies weight loss ENT Reports Normal hearing present, Denies dental pain, Denies dysphagia, Denies hearing loss, Denies mouth pain, Denies odynophagia, Denies throat swelling, Denies tongue swelling and Reports other (Dentition adequate) Card Reports no additional complaints Resp Reports no additional complaints GI Denies abdominal pain, Denies melena, Denies bloating, Denies hematochezia, Reports constipation, Denies GI cramping, Denies dysphagia, Denies excessive flatus, Denies early satiety, Reports heartburn, Denies diarrhea, Reports loose stools, Denies nausea, Denies odynophagia, Denies vomiting and Denies hematemesis Musc Reports myalgias Skin/Breast Denies pruritus, Denies lesions, Denies rash and Denies jaundice Neuro Reports Normal hearing present and Denies Abnormal speech present Endo Reports fatigue Aller/Immun Denies throat swelling and Denies tongue swelling Physical Exam Vital Signs: Last Vital Signs Pulse 93 06/12/23 08:08 BP 112/68 06/12/23 08:08 BMI result Body Mass Index 27.3 Const General: cooperative, no acute distress, well developed and well groomed Nutritional Appearance: average body habitus and well nourished Orientation/consciousness: oriented to person, oriented to place and oriented to time Limitations: No language barrier HEENT Head: Yes normocephalic and Yes atraumatic Eyes General: appearance normal, both eyes and all related structures Pupils: Equal, round and reactive pupils present Neck Neck: Yes normal visual inspection and Yes no lymphadenopathy Thyroid: Thyroid normal Resp Effort & Inspection: normal respiratory effort and able to speak in complete sentences Auscultation: clear to auscultation bilaterally Cardio Rate: regular rate Rhythm: regular rhythm Heart sounds: Normal, physiologic split S2 sound present Peripheral pulses: radial pulses present and posterior tibial pulses present GI Inspection: No distended and No Abdominal panniculus present Palpation (GI): Soft to palpation, nontender, no guarding, not rigid and No hepatosplenomegaly present Percussion: Yes normal to percussion Auscultation: normal bowel sounds Rectal Exam - Female: deferred Skin General skin exam: no rashes or lesions noted, turgor normal, skin not dry, no jaundice, No spider nevi and no striae Rashes: no rashes Nails: normal Neuro General: oriented to person, oriented to place and oriented to time Cranial nerves: Yes Equal, round and reactive pupils present and Yes Normal hearing present Speech: No Abnormal speech present Extrem General: Yes normal to inspection, No clubbing, No cyanosis and No edema Psych Appearance: grossly normal and well kempt Mental Status: mental status grossly normal Speech and movement: Normal speech and movement present Affect: normal affect Attitude: cooperative Thought process: Normal thought process present and not confabulating Thought content: Normal thought content present Insight: Good insight present (Psych) Judgement: Good judgement present (Psych) Assessment & Plan Assessment & Plan (1) Irritable bowel syndrome with both constipation and diarrhea: Code(s): K58.2 - Mixed irritable bowel syndrome (2) Small bowel motility disorder: Code(s): K59.9 - Functional intestinal disorder, unspecified (3) Hx of gastritis: Code(s): Z87.19 - Personal history of other diseases of the digestive system (4) Systemic lupus erythematosus: Code(s): M32.9 - Systemic lupus erythematosus, unspecified (5) Inflammatory arthritis: Code(s): M19.90 - Unspecified osteoarthritis, unspecified site Plan She is still struggling with fatigue, she is unable to return to work, probably needs to retire. She is here today with her who is supportive. She is struggling with CIC but still will have random episodes of diarrhea. Her Rheum will be managed at [facility] now as Dr. Leonardo retired. She will be having a salivary gland biopsy soon, and they think she has an endocrine problem as she has frequent severe hot flashes. She continues on reglan, omeprazole and bentyl. She is going to go to 40mg qod to wean the omeprazole as she has not had upper GI sx. This is fine and I can provide 20mg if needed. She is on colchicine now along with prednsone and hydroxychloroqinoline. She stil wants to wean sonia prednisone but I caution her that she needs to do this VERY SLOWLY as she had had a lot of rebound inflammation when she has tried to wean in the past. ROV 6 mos. Medications: New omeprazole 40 mg PO DAILY 30 caps 6RF Z87.19 - Personal history of other diseases of the digestive system Refilled metoclopramide HCl 10 mg PO TID 270 tabs 1RF K59.9 - Functional intestinal disorder, unspecified dicyclomine 20 mg PO TID PRN 90 tabs 3RF SPASMS Coding Level of Care Code Est Pt Level 3 (31060) Diagnoses Irritable bowel syndrome with both constipation and diarrhea K58.2 Small bowel motility disorder K59.9 Hx of gastritis Z87.19 Systemic lupus erythematosus M32.9 Inflammatory arthritis M19.90
[2023-06-12 08:08] VITALS: BP 112/68; PULSE 93; BMI 27.3
== END 2023-06-12 08:33 | disposition home or self-care (01) ==
PROVIDERS: PCP Internal Medicine; Visit Provider Nurse Practitioner
DX: K58.2 Mixed irritable bowel syndrome (principal); K59.9 Functional intestinal disorder, unspecified; Z87.19 Personal history of other diseases of the digestive system; M32.9 Systemic lupus erythematosus, unspecified; M19.90 Unspecified osteoarthritis, unspecified site
CPT/HCPCS: 99213

== ENCOUNTER → 2023-06-12 08:04 | Outpatient (BNVA) | payer OTHER, SELFPAY | PROVIDERS: PCP Internal Medicine; Visit Provider Nurse Practitioner ==

== ENCOUNTER 2023-06-26 12:15 | Outpatient (REF) | payer OTHER, SELFPAY ==
[2023-06-26 14:29] LABS: Free T4 (Free Thyroxine) 0.97 ng/dL (0.71-1.85); Thyroid Stimulating Hormone 0.67 uIU/mL (0.32-4.0)
== END 2023-06-26 12:16 | disposition home or self-care (01) ==
LOC: HO.LAB 12:15
PROVIDERS: PCP Internal Medicine; Visit Provider Internal Medicine Endocrinology, Diabetes & Metabolism
DX: E04.2 Nontoxic multinodular goiter (principal)
CPT/HCPCS: 36415; 84439; 84443

== ENCOUNTER 2023-08-11 14:34 | Inpatient (IN) | payer OTHER, SELFPAY ==
--- NOTE | ~2023-08-11 | CT_ITS ---
EXAMINATION: CT CHEST, ABDOMEN AND PELVIS WITHOUT CONTRAST. CLINICAL INFORMATION: Chest pain, shortness of breath, history of pericardial effusion, abdominal pain, history of colitis. COMPARISON: CTA chest 04/07/2023. CT abdomen/pelvis 09/26/2022. TECHNIQUE: Multidetector volumetric imaging was performed from the thoracic inlet through the pubic symphysis without IV contrast. Sagittal and coronal reformatted images were obtained on the technologist's workstation. This CT examination was performed using dose optimization techniques as appropriate, variously including the following: *Automated exposure control *Adjustment of mA and/or kV according to patient size (this includes techniques or standardized protocols for targeted exams where dose is matched to indication/reason for exam; i.e. extremities or head) *Use of iterative reconstruction technique DLP: 314 and 584 mGy-cm FINDINGS: Limited noncontrast examination. CHEST: Lung: Stable platelike opacity in the superior aspect of the right lower lobe. Increased consolidative airspace opacities in the right lung base. Very mild emphysematous changes. Central airways are patent. A few micronodules are not significantly changed, for instance in the right upper lobe (5:84) and left upper lobe (5:113). Mediastinum: Normal heart size. Increased pericardial effusion measuring up to 1.5 cm in thickness. Slightly increased size of a few mediastinal lymph nodes, for instance consumer sales representative measuring 0.9 cm in short axis in the precarinal region (3:19). Unchanged heterogeneity of the left lobe of the thyroid. Coronary artery calcifications are seen. Pleura: Trace right-sided pleural fluid. No pneumothorax. Chest Wall/Axilla: No lymphadenopathy by size criteria. ABDOMEN/PELVIS: Peritoneal Space: No free air or free fluid. Liver, Gallbladder, Biliary Tree: Simple liver cysts and a few additional too small to characterize liver hypodensities are not significantly changed. Cholecystectomy. No biliary ductal dilatation. Pancreas: Unremarkable. Spleen: Unremarkable. Adrenal Glands: Unremarkable. Kidneys and Ureters: Punctate nonobstructive calculus in the mid to lower right kidney. Very subtle too small to characterize cortical hypodensity in the left kidney, statistically favoring to represent a simple cyst and for which no imaging follow up is recommended. No hydronephrosis. No perinephric fat stranding. Bladder: Unremarkable. Gastrointestinal Tract: The stomach and the small bowel are nondilated. Minimal colonic diverticulosis without significant pericolonic inflammatory changes. No evidence of bowel obstruction. Moderate colonic stool burden. The appendix is mildly dilated measuring up to 0.9 cm in diameter without significant wall thickening nor significant periappendiceal inflammatory changes. Abdominal Wall: No significant hernia is appreciated. Lymphovascular Structures: No lymphadenopathy by size criteria. Normal caliber abdominal aorta. Pelvic Viscera: Again noted myometrial calcifications. Stable elliptical shaped fluid-filled attenuating structure in the posterior right hemipelvis (9:68) measuring 2.8 x 1.7 cm, extending along the suspected nerve roots exiting from a sacral neural foraminal. Osseous Structures: No acute or aggressive osseous findings. CT/CT abdomen pelvis wo IV con IMPRESSION: 1. Increased pericardial effusion measuring up to 1.5 cm in thickness. 2. Increased consolidative airspace opacities in the right lung base with a trace right-sided pleural effusion. Findings could be related with atelectasis or aspiration. 3. A few pulmonary micronodules are not significantly changed compared to 04/07/2023. Recommend follow-up according to Fleischner's criteria (see below). 4. Slightly increased size of mediastinal lymph nodes without pathologic enlargement by CT short axis size criteria. Attention on follow-up recommended. 5. The appendix is mildly dilated measuring up to 0.9 cm however without significant wall thickening or periappendiceal inflammatory changes. Correlate clinically for acute appendicitis. 6. Minimal colonic diverticulosis but no evidence of acute diverticulitis. Moderate colonic stool burden. 7. 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 This could be further evaluated with a nonemergent MR of the pelvis if clinically deemed appropriate. 8. Stable mild asymmetric heterogeneity and enlargement of the left lobe of the thyroid. Based on the recommendations of the ACR Incidental Thyroid Findings Committee (JACR 2015 Jun; 12(2):143-50), further evaluation by thyroid ultrasound is recommended for a heterogeneously enlarged thyroid gland in patients that do not have limited life expectancy or significant co-morbidities, unless clinically warranted. According to the UPDATED 2017 Fleischner Society recommendations, the advised follow-up imaging for multiple solid nodules measuring up to 6-8 mm is follow-up CT at 3 to 6 months. In high-risk patients, subsequent CT follow-up at 18 to 24 months is recommended. In low-risk patients, subsequent CT follow-up at 18 to 24 months is optional.
[2023-08-11 14:41] VITALS: BP 145/93; BP 150/80; PULSE 107; PULSE 130; RESP 19; TEMP 36.6; O2SAT 100; O2SAT 96; BMI 30.2
--- NOTE | 2023-08-11 14:43 | ECG_ITS ---
Test Reason : CHEST PAIN Blood Pressure : / mmHG Vent. Rate : 101 BPM Atrial Rate : 101 BPM P-R Int : 118 ms QRS Dur : 076 ms QT Int : 346 ms P-R-T Axes : 027 -08 037 degrees QTc Int : 448 ms Sinus tachycardia Possible Inferior infarct , age undetermined Abnormal ECG When compared with ECG of 07-APR-2023 06:58, No significant changes seen Referred By: Generic ED Physician Electronically Signed By:JAMI NORIEGA MD
[2023-08-11 15:13] LABS: MANUAL DIFF FLAG NO
[2023-08-11 15:16] LABS: Basophils Absolute Auto 0.1 X10*3/uL (0.0-0.2); Basophils Percent Auto 0.3 % (0-2); Hematocrit 42.5 % (37.0-47.0); Imm Gran Abs Auto 0.14 X10*3/uL (0.00-0.03); Imm Gran Pct Auto 0.7 % (0.0-0.4); Lymphocytes Absolute Auto 1.2 X10*3/uL (1.2-4.9); Lymphocytes Percent Auto 6.2 % (20-40); Mean Corpuscular HGB Conc 35.3 g/dl (31.0-35.0); Mean Corpuscular Hemoglobin 31.1 pg (27.0-33.0); Mean Corpuscular Volume 88.2 fL (80.0-98.0); Mean Platelet Volume 9.7 fL (9.4-12.3); Monocytes Absolute Auto 1.4 X10*3/uL (0.1-1.2); Monocytes Percent Auto 7.3 % (2-11); Neutrophils Absolute Auto 16.7 x10*3/uL (2.0-8.3); Neutrophils Percent Auto 85.5 % (45-73); Platelet Count 305 X10*3/uL (160-400); Red Blood Count 4.82 X10*6/uL (4.20-5.50); Red Cell Distribution Width 14.2 % (11.0-16.0); White Blood Count 19.5 X10*3/uL (4.8-10.8)
[2023-08-11 15:28] LABS: Alanine Aminotransferase 43 U/L (0-31); Albumin Level 3.9 g/dL (3.5-5.0); Alkaline Phosphatase 99 U/L (39-117); Anion Gap 16 (12-20); Aspartate Amino Transferase 26 U/L (5-31); Bilirubin Total 0.5 mg/dL (0.0-1.0); Blood Urea Nitrogen 11 mg/dL (9-16); Calcium 9.3 mg/dL (8.4-10.2); Carbon Dioxide 21 mmol/L (22-29); Chloride 107 mmol/L (96-108); Creatinine Clr Calc Pharmacy 69.3; Estimated Glomerular Filt Rate > 60; Glucose Random 158 mg/dL (60-115); Potassium 4.2 mmol/L (3.3-5.1); Sodium 140 mmol/L (135-145); Total Protein 7.4 g/dL (6.5-8.0)
[2023-08-11 15:36] LABS: Troponin-I High Sensitivity < 2.7 ng/L (<3.5-17.0)
[2023-08-11 16:23] VITALS: BP 135/91; PULSE 104; RESP 20; O2SAT 98
--- NOTE | 2023-08-11 17:31 | ED.CHESTPAIN ---
HPI - Chest Pain General Chief Complaint: Chest Pain Stated Complaint: CHEST PRESSURE Time Seen by Provider: 08/11/23 16:43 Source: patient and family Mode of arrival: ambulatory Limitations: no limitations History of Present Illness HPI narrative: 57-year-old female with a history of lupus who is currently on 6 mg of prednisone daily, cervical radiculopathy, high cholesterol here with multiple complaints. Patient reports for the last 4 days she has been having chest pain described as chest pressure (constant) which is worsened with lying flat, deep breathing and movement. This is associated with shortness of breath, fatigue. Patient does have a dry cough. No fevers, chills, body aches, leg swelling or leg pain. Yesterday she developed diffuse abdominal pain with nausea. No vomiting, diarrhea, urinary symptoms. Patient reports that she has a adapted physical education specialist at [facility] (Dr Luong). She had been on hydroxychloroquine for this was discontinued in May as her adapted physical education specialist was unsure if she had lupus at that time. She has been on prednisone for quite some time and has been on 6 mg since May with plans to decrease her dose tomorrow. No recent travel. No sick contact. Related Data Home Medications Medication Instructions Recorded Confirmed acyclovir 400 mg tablet 400 mg PO BID PRN Cold Sores 06/27/22 03/21/23 cyclobenzaprine 10 mg tablet 10 mg PO DAILY PRN Spasms 06/27/22 03/21/23 ondansetron HCl 4 mg tablet 4 mg PO DAILY PRN Nausea 06/27/22 03/21/23 zolmitriptan 5 mg nasal spray 1 spray intranasal DAILY PRN 09/24/22 03/21/23 (Zomig) Migraine Headache cyclosporine 0.05 % eye drops in a 1 drp ophthalmic (eye) Q12H 09/25/22 03/21/23 dropperette (Restasis) triamcinolone acetonide 55 mcg 1 spray intranasal DAILY 09/25/22 03/21/23 nasal spray aerosol (Nasacort Allergy) lorazepam 0.5 mg tablet 0.5 mg PO anxiety 01/11/23 03/21/23 zolmitriptan 5 mg tablet 5 mg PO migraine 01/11/23 03/21/23 rosuvastatin 5 mg tablet 5 mg PO DAILY 05/11/23 colchicine 0.6 mg tablet mg PO BID 05/22/23 Previous Rx's Medication Instructions Recorded prednisone 5 mg tablet 15 mg (3 x 5 mg) PO DAILY #90 tabs 04/25/23 hydroxychloroquine 200 mg tablet 300 mg (1.5 x 200 mg) PO DAILY 05/16/23 #135 tabs dicyclomine 20 mg tablet 20 mg PO TID PRN SPASMS #90 tabs 06/12/23 metoclopramide HCl 10 mg tablet 10 mg PO TID #270 tabs 06/12/23 omeprazole 40 mg capsule,delayed 40 mg PO DAILY #30 caps 06/12/23 release Allergies Allergy/AdvReac Type Severity Reaction Status Date / Time pollen extracts Allergy Intermediate Runny Nose Verified 06/12/23 08:08 atorvastatin Allergy Mild muscle pain Verified 06/12/23 08:08 blue dye Allergy Mild Unknown Verified 06/12/23 08:08 iodine Allergy Mild Itching Verified 06/12/23 08:08 red dye Allergy Mild Unknown Verified 06/12/23 08:08 tree and shrub pollen Allergy Mild Nasal Verified 06/12/23 08:08 congestion erythromycin base Allergy Nausea and Verified 06/12/23 08:08 Vomiting azathioprine AdvReac Severe vomiting Verified 06/12/23 08:08 and diarrhea stevioside [From Stevia] AdvReac Abdominal Verified 06/12/23 08:08 Pain green dye Allergy Severe Headache Uncoded 06/12/23 08:08 molds and smuts Allergy Severe hadache Uncoded 06/12/23 08:08 Review of Systems Review of Systems: Yes all other systems are reviewed and are negative Constitutional: Constitutional: Reports no additional constitutional complaints, Denies body ache(s), Denies chills, Reports fatigue, Denies fever(s), Denies headache(s) and Denies weakness Eyes: Eyes: Reports no additional eye complaints and Denies change in vision ENT: Reports system reviewed and no additional complaints, except as documented, Denies dizziness, Denies headache(s), Denies nasal congestion, Denies nasal discharge and Denies neck pain Cardiovascular: Cardiovascular: Reports no additional cardiovascular complaints, Reports chest pain, Denies leg edema and Reports dyspnea Respiratory: Respiratory: Reports no additional respiratory complaints, Reports cough and Reports dyspnea Gastrointestinal: Gastrointestinal: Reports no additional gastrointestinal complaints, Reports abdominal pain, Denies diarrhea, Reports nausea and Reports vomiting Genitourinary: Genitourinary: Reports no additional female genitourinary complaints and Denies urinary incontinence Musculoskeletal: Musculoskeletal: Reports no additional musculoskeletal complaints, Denies back pain, Denies arthralgias, Denies joint swelling, Denies neck pain, Denies numbness and Denies tingling Integumentary/Breasts: Skin/Breast: Reports system reviewed and no additional complaints, except as docu and Denies rash Neurologic: Reports system reviewed and no additional complaints, except as documented, Denies Abnormal speech present, Denies dizziness, Denies headache(s), Denies numbness, Denies tingling and Denies weakness Endocrine: Endocrine: Reports fatigue PMFSH Past Medical History Attestation statement: The following information was validated with the patient. Source: old records reviewed and nursing notes reviewed Medical History (Updated 08/11/23 @ 21:[address]a NP) Pericardial effusion Esophageal candidiasis Ileitis Abdominal pain Inflammation of small intestine History of anesthesia complications Hx of chest pain Fusion of spine, cervical region TMJ syndrome Hx of gastritis Cervical radiculopathy Elevated cholesterol Osteoarthritis Hx of migraine headaches Multinodular thyroid Surgical History Hx of shoulder surgery S/P thyroid biopsy H/O colonoscopy History of esophagogastroduodenoscopy (EGD) History of spinal fusion Hx of dilation and curettage Hx of cholecystectomy Hx of tonsillectomy Hx of tubal ligation Family History Family History Mother Diabetes Uterine cancer Hypertension Father Diabetes Hypertension Stroke Family/Other Colon cancer Social History Social History Household Members: Spouse Are you a primary point of care specialist to a significant other at home: No Do you presently have visiting nurse or other home services: No Alcohol intake: never Patient Tobacco Use Status: Former Tobacco user Quit Date: 1990 Tobacco use type: Cigarette Smoked in Last 30 Days: No Use of substances other than those prescribed or required for medical reasons: No Substance Use Type: Marijuana Advance Directives: No Advance Directives Information Provided: No service: No Current occupational status: employed Current occupation: right hand dominant Physical Exam Vital Signs: Vital Signs: Last Vital Signs Temp 98.0 F 08/11/23 18:58 Pulse 97 08/11/23 18:58 Resp 19 08/11/23 18:58 BP 125/83 08/11/23 18:58 Pulse Ox 95 08/11/23 18:58 O2 Del Method Room Air 08/11/23 18:58 BMI result Body Mass Index 30.2 Const: General: cooperative, healthy appearing, comfortable and no acute distress Orientation/consciousness: patient oriented x3 Limitations: no limitations HEENT: Head: Yes normal to inspection Ears: hearing grossly normal bilaterally General nose exam: Normal external nose present Face and sinus: Yes normal facial exam Mouth: Normal oral and palatal mucosa present Throat: Yes posterior oropharynx normal Eyes: General: appearance normal, both eyes and all related structures Pupils: Equal, round and reactive pupils present Neck: Neck: Yes normal visual inspection and Yes full ROM Chest: Chest palpation & inspection: normal inspection of the chest Resp: Effort & Inspection: normal respiratory effort Auscultation: clear to auscultation bilaterally Cardio: Rate: regular rate Rhythm: regular rhythm Peripheral pulses: Peripheral pulses 2+ throughout GI: Inspection: Yes normal to inspection Palpation (GI): Soft to palpation and nontender Auscultation: normal bowel sounds Back/Spine/Pelvis: Thoracic/Lumbar Spine: thoracic and lumbar spine normal to inspection Skin: General skin exam: no rashes or lesions noted Neuro: General: patient oriented x3, no focal motor deficits and normal sensation to monofilament Cranial nerves: Yes Equal, round and reactive pupils present Cognition (Neuro): normal cognition Speech: No Abnormal speech present Gait exam (Neuro): Normal gait present Motor exam (neuro): 5/5 motor strength present throughout Extrem: General: Yes normal to inspection, Yes no pedal edema and Yes no calf tenderness Course Course Course Narrative: Ct chest ?increased consolidation airspace opacities with trace pleural effusion. Likely atelectasis secondary to splinting from chest pain. Doubt infectious process in the absence of fever or cough. No need for antibiotic Medications Administered Generic Name Dose Route Start Last Admin Trade Name Freq PRN Reason Stop Dose Admin Enoxaparin Sodium 40 mg 08/11/23 21:00 08/11/23 21:50 Enoxaparin Sodium 40 Mg/0.4 Ml Syringe SUBCUT Not Given Q24H CHAMP Discontinued Medications Generic Name Dose Route Start Last Admin Trade Name Freq PRN Reason Stop Dose Admin Acyclovir 400 mg 08/11/23 19:41 08/11/23 20:04 Acyclovir 200 Mg Capsule PO 08/11/23 19:42 400 mg ONCE ONE Administration Colchicine 0.6 mg 08/11/23 19:41 08/11/23 20:19 Colchicine 0.6 Mg Tablet PO 08/11/23 19:42 0.6 mg ONCE ONE Administration Cyclobenzaprine HCl 10 mg 08/11/23 19:41 08/11/23 20:04 Cyclobenzaprine Hcl 10 Mg Tablet PO 08/11/23 19:42 10 mg ONCE ONE Administration Sodium Chloride 1,000 mls @ 999 mls/hr 08/11/23 17:29 08/11/23 19:50 Ns IV 08/11/23 18:29 Infused .Q1H1M STA Infusion Ketorolac Tromethamine 15 mg 08/11/23 19:56 08/11/23 20:05 Ketorolac Tromethamine 15 Mg/Ml Vial IVPUSH 08/11/23 19:57 15 mg ONCE ONE Administration Lorazepam 1 mg 08/11/23 19:41 08/11/23 20:05 Lorazepam 1 Mg Tablet PO 08/11/23 19:42 1 mg ONCE ONE Administration Methylprednisolone Sodium Succinate 125 mg 08/11/23 20:46 08/11/23 21:54 Methylprednisolone Sod Succ 125 Mg/2 Ml Vial IVPUSH 08/11/23 20:47 125 mg ONCE ONE Administration Ondansetron HCl 8 mg 08/11/23 17:29 08/11/23 17:51 Ondansetron Hcl 4 Mg/2 Ml Vial IVPUSH 08/11/23 17:30 8 mg ONCE ONE Administration Medical Decision Making Medical Decision Making [facility] Narrative: 57-year-old female with a history of lupus who is currently on 6 mg of prednisone daily, cervical radiculopathy, high cholesterol here with multiple complaints. Patient reports for the last 4 days she has been having chest pain described as chest pressure (constant) which is worsened with lying flat, deep breathing and movement. This is associated with shortness of breath. Patient does have a dry cough. No fevers, chills, body aches, leg swelling or leg pain. Yesterday she developed diffuse abdominal pain with nausea. No vomiting, diarrhea, urinary symptoms. Patient reports that she has a adapted physical education specialist at [facility] (Dr Luong). She had been on hydroxychloroquine for this was discontinued in May as her adapted physical education specialist was unsure if she had lupus at that time. She has been on prednisone for quite some time and has been on 6 mg since May with plans to decrease her dose tomorrow. No recent travel. No sick contact. Exam is benign. Vitals are stable. Will need labs including inflammatory markers, EKG, viral testing, CT chest and abdomen Differential Diagnosis Differential Diagnoses: The differential diagnosis associated with the presentation includes Pericarditis, myocarditis, ACS, PE, pneumonia, colitis Admission/Observation Consideration of admission/observation: Escalation of care including admission/observation considered Pericardial effusion in the setting of lupus with concern for pericarditis requiring cards consultation and admission with treatment with IV steroids. Consult Healthcare Provider Management of the patient was discussed with: Hospitalist and Safety Specialist CT abdomen and pelvis shows dilated appendix up to 0.9 cm with no wall thickening or periappendiceal inflammatory changes. Patient with no focal right lower quadrant pain. Reviewed images with Dr. Machuca from general surgery who agrees that low likelihood of acute appendicitis CT of chest shows increased pericardial effusion measuring up to 1.5 cm in thickness. Stable vital signs. Low concern for tamponade. Reviewed case with Dr. Rhodes who recommended admission with echocardiogram and d/w with patient outpatient adapted physical education specialist Spoke to adapted physical education specialist ([facility]) Dr [id number] obtaining c3, c4, dna ds to r/o lupus flare, treatment with IV steroids (dosing up to cards) and outpatient f/u All of the above recommendations were communicated to the hospitalist team (dr roy and bryce lobo) and the patient was admitted Lab Data MDM Lab Attestation statement: I reviewed the patient's lab results. 08/11/23 15:06 08/11/23 15:06 Labs: Lab Results 08/11/23 08/11/23 08/11/23 Range/Units 15:06 19:01 20:11 WBC 19.5 H (4.8-10.8) X10*3/uL RBC 4.82 (4.20-5.50) X10*6/uL Hgb 15.0 (12.0-16.0) g/dl Hct 42.5 (37.0-47.0) % MCV 88.2 (80.0-98.0) fL MCH 31.1 (27.0-33.0) pg MCHC 35.3 H (31.0-35.0) g/dl RDW 14.2 (11.0-16.0) % Plt Count 305 (160-400) X10*3/uL MPV 9.7 (9.4-12.3) fL Immature Gran % (Auto) 0.7 H (0.0-0.4) % Neut % (Auto) 85.5 H (45-73) % Lymph % (Auto) 6.2 L (20-40) % [place] % (Auto) 7.3 (2-11) % Eos % (Auto) 0.0 (0-4) % Baso % (Auto) 0.3 (0-2) % Lymph # (Auto) 1.2 (1.2-4.9) X10*3/uL [place] # (Auto) 1.4 H (0.1-1.2) X10*3/uL Eos # (Auto) 0.0 (0.0-0.4) X10*3/uL Baso # (Auto) 0.1 (0.0-0.2) X10*3/uL Abs Immat Gran (auto) 0.14 H (0.00-0.03) X10*3/uL Absolute Neuts (auto) 16.7 H (2.0-8.3) x10*3/uL Absolute Nucleated RBC 0.000 (0.0-0.012) X10*3/uL Nucleated RBC % (auto) 0.0 (0.0-0.2) /100WBC ESR 67 H (0-20) MM/HR Sodium 140 (135-145) mmol/L Potassium 4.2 (3.3-5.1) mmol/L Chloride 107 (96-108) mmol/L Carbon Dioxide 21 L (22-29) mmol/L Anion Gap 16 (12-20) BUN 11 (9-16) mg/dL Creatinine 0.86 (0.5-1.4) mg/dL Estim Creat Clear Calc 69.3 Estimated GFR > 60 Random Glucose 158 H (60-115) mg/dL Calcium 9.3 (8.4-10.2) mg/dL Total Bilirubin 0.5 (0.0-1.0) mg/dL AST 26 (5-31) U/L ALT 43 H (0-31) U/L Alkaline Phosphatase 99 (39-117) U/L Troponin I High Sens < 2.7 (<3.5-17.0) ng/L C-Reactive Protein 22.09 H (< or = 0.50) mg/dL Total Protein 7.4 (6.5-8.0) g/dL Albumin 3.9 (3.5-5.0) g/dL Urine Color Yellow Urine Appearance Clear Urine pH 6.5 (5.0-9.0) Ur Specific [place] 1.010 (1.005-1.025) Urine Protein 30 (1+) H (Neg-Trace) mg/dL Urine Glucose (UA) Negative (Negative) mg/dL Urine Ketones Trace (Negative) mg/dL Urine Blood Large (3+) H (Negative) Urine Nitrite Negative (Negative) Ur Leukocyte Esterase Negative (Negative) Urine RBC >20 H (0-2) /HPF Urine WBC 0-5 (0-5) /HPF Ur Squamous Epith Cells 0-2 (0-2) /HPF Urine Bacteria None Seen (None Seen) Hyaline Casts 0-2 (0-2) /LPF Influenza Type A (PCR) NEGATIVE (Negative) Influenza Type B (PCR) NEGATIVE (Negative) RSV RNA Qual (PCR) NEGATIVE (Negative) SARS-CoV-2 RNA (RT-PCR) NEGATIVE (Negative) Independent Interpretation I performed an independent interpretation of an: EKG and CT Scan Interpretation: I independently reviewed the EKG which shows sinus tachycardia with a rate of 101, normal MA, normal QRS, normal QT I independently reviewed the CT scan agree with the radiology report Radiology Impression Discussion of test interpretation with radiology: I have reviewed the radiologist's reading. Radiologist Impression: [address] [address] [address] Scan Report Signed Patient: Cookie Nielsen MR#: [id number] : 1965 Acct:[id number] Age/Sex: 57 / F ADM Date: 08/11/23 Loc: HO.ED Attending Dr: Ordering Physician: Ave Bojorquez NP Date of Service: 08/11/23 Procedure(s): CT chest wo IV con Accession Number(s): [id number] cc: Regina Paz MD; Ave Bojorquez NP~ EXAMINATION: CT CHEST, ABDOMEN AND PELVIS WITHOUT CONTRAST. CLINICAL INFORMATION: Chest pain, shortness of breath, history of pericardial effusion, abdominal pain, history of colitis. COMPARISON: CTA chest 04/07/2023. CT abdomen/pelvis 09/26/2022. TECHNIQUE: Multidetector volumetric imaging was performed from the thoracic inlet through the pubic symphysis without IV contrast. Sagittal and coronal reformatted images were obtained on the technologist's workstation. This CT examination was performed using dose optimization techniques as appropriate, variously including the following: *Automated exposure control *Adjustment of mA and/or kV according to patient size (this includes techniques or standardized protocols for targeted exams where dose is matched to indication/reason for exam; i.e. extremities or head) *Use of iterative reconstruction technique DLP: 314 and 584 mGy-cm FINDINGS: Limited noncontrast examination. CHEST: Lung: Stable platelike opacity in the superior aspect of the right lower lobe. Increased consolidative airspace opacities in the right lung base. Very mild emphysematous changes. Central airways are patent. A few micronodules are not significantly changed, for instance in the right upper lobe (5:84) and left upper lobe (5:113). Mediastinum: Normal heart size. Increased pericardial effusion measuring up to 1.5 cm in thickness. Slightly increased size of a few mediastinal lymph nodes, for instance veterans contact representative measuring 0.9 cm in short axis in the precarinal region (3:19). Unchanged heterogeneity of the left lobe of the thyroid. Coronary artery calcifications are seen. Pleura: Trace right-sided pleural fluid. No pneumothorax. Chest Wall/Axilla: No lymphadenopathy by size criteria. ABDOMEN/PELVIS: Peritoneal Space: No free air or free fluid. Liver, Gallbladder, Biliary Tree: Simple liver cysts and a few additional too small to characterize liver hypodensities are not significantly changed. Cholecystectomy. No biliary ductal dilatation. Pancreas: Unremarkable. Spleen: Unremarkable. Adrenal Glands: Unremarkable. Kidneys and Ureters: Punctate nonobstructive calculus in the mid to lower right kidney. Very subtle too small to characterize cortical hypodensity in the left kidney, statistically favoring to represent a simple cyst and for which no imaging follow up is recommended. No hydronephrosis. No perinephric fat stranding. Bladder: Unremarkable. Gastrointestinal Tract: The stomach and the small bowel are nondilated. Minimal colonic diverticulosis without significant pericolonic inflammatory changes. No evidence of bowel obstruction. Moderate colonic stool burden. The appendix is mildly dilated measuring up to 0.9 cm in diameter without significant wall thickening nor significant periappendiceal inflammatory changes. Abdominal Wall: No significant hernia is appreciated. Lymphovascular Structures: No lymphadenopathy by size criteria. Normal caliber abdominal aorta. Pelvic Viscera: Again noted myometrial calcifications. Stable elliptical shaped fluid-filled attenuating structure in the posterior right hemipelvis (9:68) measuring 2.8 x 1.7 cm, extending along the suspected nerve roots exiting from a sacral neural foraminal. Osseous Structures: No acute or aggressive osseous findings. CT/CT chest wo IV con IMPRESSION: 1. Increased pericardial effusion measuring up to 1.5 cm in thickness. 2. Increased consolidative airspace opacities in the right lung base with a trace right-sided pleural effusion. Findings could be related with atelectasis or aspiration. 3. A few pulmonary micronodules are not significantly changed compared to 04/07/2023. Recommend follow-up according to Fleischner's criteria (see below). 4. Slightly increased size of mediastinal lymph nodes without pathologic enlargement by CT short axis size criteria. Attention on follow-up recommended. 5. The appendix is mildly dilated measuring up to 0.9 cm however without significant wall thickening or periappendiceal inflammatory changes. Correlate clinically for acute appendicitis. 6. Minimal colonic diverticulosis but no evidence of acute diverticulitis. Moderate colonic stool burden. 7. 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 This could be further evaluated with a nonemergent MR of the pelvis if clinically deemed appropriate. 8. Stable mild asymmetric heterogeneity and enlargement of the left lobe of the thyroid. Based on the recommendations of the ACR Incidental Thyroid Findings Committee (JACR 2014; 12(2):143-50), further evaluation by thyroid ultrasound is recommended for a heterogeneously enlarged thyroid gland in patients that do not have limited life expectancy or significant co-morbidities, unless clinically warranted. According to the UPDATED 2017 Fleischner Society recommendations, the advised follow-up imaging for multiple solid nodules measuring up to 6-8 mm is follow-up CT at 3 to 6 months. In high-risk patients, subsequent CT follow-up at 18 to 24 months is recommended. In low-risk patients, subsequent CT follow-up at 18 to 24 months is optional. Independent Historian Clinical information obtained from an independent historian. History obtained from or confirmed by: Spouse Critical Care Time Critical Care Time Critical Care Time: Yes Total Critical Care Time: 120 Attestation: Multiple discussions with family about goals of care- discussion with Rheumatology, Cardiology, General surgery, inpatient medicine Discharge Plan Discharge Clinical Impression: Acute pericardial effusion Patient Disposition: Admitted As Inpatient
[2023-08-11] MEDS: ondansetron HCL 4 MG/2 ML VIAL 8 MG IVPUSH (17:51)
[2023-08-11] MEDS: 0.9 % Sodium Chloride 1,000 ML 999 ML IV (17:52)
[2023-08-11 18:06] LABS: C Reactive Protein 22.09 mg/dL (< or = 0.50)
[2023-08-11 18:40] LABS: Erythrocyte Sedimentation Rate 67 MM/HR (0-20)
[2023-08-11 18:58] VITALS: BP 125/83; PULSE 97; RESP 19; TEMP 36.7; O2SAT 95
[2023-08-11 19:43] LABS: Influenza A PCR NEGATIVE (Negative); Influenza B PCR NEGATIVE (Negative); Resp Syncy Virus RNA Qual PCR NEGATIVE (Negative); SARS COV2 PCR INHOUSE NEGATIVE (Negative)
[2023-08-11] MEDS: Acyclovir 200 MG CAPSULE 400 MG PO (20:04)
[2023-08-11] MEDS: Cyclobenzaprine HCl 10 MG TABLET PO (20:04)
[2023-08-11] MEDS: Ketorolac Tromethamine 15 MG/ML VIAL IVPUSH (20:05)
[2023-08-11] MEDS: LORazepam 1 MG TABLET PO (20:05)
--- NOTE | 2023-08-11 20:15 | PC.NURSE ---
this rn assumed care of pt. pt medciated per mar at htis time, tolerated well with water. urine sample obtained and sent to lab. pt reporting 6/10 abdominal pain at this time. Hospitalist at bedside discussing pt care.
[2023-08-11] MEDS: Colchicine 0.6 MG TABLET PO (20:19)
[2023-08-11 20:21] LABS: Appearance Urine Clear; Color Urine Yellow; Glucose Urine UA Negative (Negative); Leukocyte Esterase Urine Negative (Negative); Nitrite Urine Negative (Negative); PH 6.5 (5.0-9.0); UMIC TRIGGER UACC YES; Urine Blood Large (3+) (Negative); Urine Ketones Trace mg/dL (Negative); Urine Protein 30 (1+) mg/dL (Neg-Trace)
[2023-08-11 20:27] LABS: Bacteria Urine None Seen (None Seen); Hyaline Casts Urine 0-2 /LPF (0-2); RBC Urine >20 /HPF (0-2); Squamous Epithelial Cell Urine 0-2 /HPF (0-2); WBC Urine 0-5 /HPF (0-5)
--- NOTE | 2023-08-11 20:56 | PM.IMHP ---
History of Present Illness Date of Service: 08/11/23 Attending physician on admission: Rudy Almazan Chief Complaint: chest pain 57-year-old female with history of multinodular thyroid, ileitis, hyperlipidemia, SLE, inflammatory arthritis, and possible Sjogren's syndrome presented to the ED accompanied by her , Roni, earlier today for evaluation of chest pain with associated dyspnea ongoing for 4 days. She reports a pressure in her chest that worsens when lying flat and improves when sitting up straight. She states when ambulating even short distances she will developed palpitations with heart rate between 120-130s. She was also been experiencing significant fatigue over the last 2 weeks. She describes the chest pain is constant nonradiating and associated with an air hunger. She has had a cough but this is nonproductive and remains unchanged. There is also RUQ pain just inferior to the diaphragm. No n,v,d,melena, hematochezia. Denies fevers or chills. He has been following with a new field sampling technician at [facility] and was recently taken off of her Plaquenil which she had been on for many years as her field sampling technician was uncertain if she truly had lupus but was continued on a steroid taper. On arrival, vital signs stable, mildly tachycardic to 107. She has a chronic leukocytosis, hematology studies otherwise unremarkable. Renal function and electrolyte levels normal except for CO2 21. CRP 22.09, ESR 67. Urinalysis with 3+ blood, otherwise unremarkable. Negative for COVID-19, influenza, RSV. CT chest shows increased pericardial effusion measuring up to 1.5 cm in thickness as well as increased consolidative airspace opacities in the right lung base with a trace right-sided pleural effusion, most likely atelectasis rather than aspiration. There were also few pulmonary micro nodules unchanged from prior imaging and slightly increased size of mediastinal lymph nodes without pathologic enlargement. CT abdomen/pelvis shows a mildly dilated appendix. 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 EKG shows sinus tachycardia, rate 101, slight twave inversion III, aVR, V1. No significant change from priors. No LACHO/depressions. ED provider discussed cased with cardiology recommending admission but advising patient's field sampling technician be contacted for recommendation. Pt will be admitted for further management of pericardial effusion associated with SLE. Review of Systems Review of Systems: General: No fevers, malaise, unintentional weight loss HEENT: No blurred vision, diplopia. No sore throat, nasal congestion, rhinorrhea, sinus pain, ear pain Cardiovascular: +chest pain, +palpitations. No leg edema Respiratory: +sob, +cough. No wheezing GI: +RUQ pain. No abdominal pain, nausea, vomiting, diarrhea, constipation, melena, hematochezia : No dysuria, hematuria, increased urinary frequency, decreased urinary output MSK: No myalgia, back pain Neuro: No headaches, weakness, paresthesias Skin: No rashes or lesions [facility] Medical History (Updated 08/11/23 @ 21:19 by BOUBACAR Zaidi) Pericardial effusion Esophageal candidiasis Ileitis Abdominal pain Inflammation of small intestine History of anesthesia complications Hx of chest pain Fusion of spine, cervical region TMJ syndrome Hx of gastritis Cervical radiculopathy Elevated cholesterol Osteoarthritis Hx of migraine headaches Multinodular thyroid Family History Mother Diabetes Uterine cancer Hypertension Father Diabetes Hypertension Stroke Family/Other Colon cancer Surgical History Hx of shoulder surgery S/P thyroid biopsy H/O colonoscopy History of esophagogastroduodenoscopy (EGD) History of spinal fusion Hx of dilation and curettage Hx of cholecystectomy Hx of tonsillectomy Hx of tubal ligation Social History Household Members: Spouse Are you a primary career based intervention coordinator to a significant other at home: No Do you presently have visiting nurse or other home services: No Alcohol intake: never Patient Tobacco Use Status: Former Tobacco user Quit Date: 1990 Tobacco use type: Cigarette Smoked in Last 30 Days: No Use of substances other than those prescribed or required for medical reasons: No Substance Use Type: Marijuana Advance Directives: No Advance Directives Information Provided: No service: No Current occupational status: employed Current occupation: right hand dominant Meds Allergies Allergy/AdvReac Type Severity Reaction Status Date / Time pollen extracts Allergy Intermediate Runny Nose Verified 06/12/23 08:08 atorvastatin Allergy Mild muscle pain Verified 06/12/23 08:08 blue dye Allergy Mild Unknown Verified 06/12/23 08:08 iodine Allergy Mild Itching Verified 06/12/23 08:08 red dye Allergy Mild Unknown Verified 06/12/23 08:08 tree and shrub pollen Allergy Mild Nasal Verified 06/12/23 08:08 congestion erythromycin base Allergy Nausea and Verified 06/12/23 08:08 Vomiting azathioprine AdvReac Severe vomiting Verified 06/12/23 08:08 and diarrhea stevioside [From Stevia] AdvReac Abdominal Verified 06/12/23 08:08 Pain green dye Allergy Severe Headache Uncoded 06/12/23 08:08 molds and smuts Allergy Severe hadache Uncoded 06/12/23 08:08 Active Medications: Current Medications Acetaminophen (Acetaminophen 325 Mg Tablet) 650 mg PO Q6H PRN PRN Reason: Pain, Mild (Pain Scale 1-3) Enoxaparin Sodium (Enoxaparin Sodium 40 Mg/0.4 Ml Syringe) 40 mg SUBCUT Q24H CHAMP Lorazepam (Lorazepam 1 Mg Tablet) 1 mg PO BEDTIME PRN PRN Reason: anxiety Ondansetron HCl (Ondansetron Hcl 4 Mg/2 Ml Vial) 4 mg IVPUSH Q8H PRN PRN Reason: Nausea and Vomiting Senna (Sennosides 8.6 Mg Tablet) 17.2 mg PO BEDTIME PRN PRN Reason: Constipation Sodium Chloride (0.9 % Sodium Chloride Flush 3 Ml Syringe) 3 ml IVFLUSH QSHIFT [facility] Home Medications Medication Instructions Recorded Confirmed Last Taken Type acyclovir 400 mg tablet 400 mg PO BID PRN Cold Sores 06/27/22 03/21/23 Unknown History cyclobenzaprine 10 mg tablet 10 mg PO DAILY PRN Spasms 06/27/22 03/21/23 Unknown History ondansetron HCl 4 mg tablet 4 mg PO DAILY PRN Nausea 06/27/22 03/21/23 Unknown History zolmitriptan 5 mg nasal spray 1 spray intranasal DAILY PRN 09/24/22 03/21/23 Unknown History (Zomig) Migraine Headache cyclosporine 0.05 % eye drops in a 1 drp ophthalmic (eye) Q12H 09/25/22 03/21/23 Unknown History dropperette (Restasis) triamcinolone acetonide 55 mcg 1 spray intranasal DAILY 09/25/22 03/21/23 Unknown History nasal spray aerosol (Nasacort Allergy) lorazepam 0.5 mg tablet 0.5 mg PO anxiety 01/11/23 03/21/23 Unknown History zolmitriptan 5 mg tablet 5 mg PO migraine 01/11/23 03/21/23 Unknown History rosuvastatin 5 mg tablet 5 mg PO DAILY 05/11/23 Unknown History colchicine 0.6 mg tablet mg PO BID 05/22/23 Unknown History Physical Exam Vital Signs and Narrative: Vital Signs: Last Vital Signs Temp 98.0 F 08/11/23 18:58 Pulse 97 08/11/23 18:58 Resp 19 08/11/23 18:58 BP 125/83 08/11/23 18:58 Pulse Ox 95 08/11/23 18:58 O2 Del Method Room Air 08/11/23 18:58 BMI result Body Mass Index 30.2 Constitutional - Awake and Alert, No apparent distress Eyes - PERRLA, EOMI Cardiovascular - S1S2, RRR, no murmurs, rubs, gallops. No edema Respiratory - Normal lung expansion, Normal respiratory effort, No respiratory distress, CTA bilaterally Gastrointestinal - NT / ND; +BS; No rebound or guarding Extremities - no calf tenderness bilaterally, no swelling Skin - Warm/Dry Neurological - Alert & oriented x3 Psychological - Appropriate affect Results Labs 08/11/23 15:06 08/11/23 15:06 Labs: Laboratory Results - last 24 hr 08/11/23 08/11/23 08/11/23 15:06 19:01 20:11 MCV 88.2 MCH 31.1 MCHC 35.3 H RDW 14.2 Plt Count 305 MPV 9.7 Immature Gran % (Auto) 0.7 H Neut % (Auto) 85.5 H Lymph % (Auto) 6.2 L [place] % (Auto) 7.3 Eos % (Auto) 0.0 Baso % (Auto) 0.3 Lymph # (Auto) 1.2 [place] # (Auto) 1.4 H Eos # (Auto) 0.0 Baso # (Auto) 0.1 Abs Immat Gran (auto) 0.14 H Absolute Neuts (auto) 16.7 H Absolute Nucleated RBC 0.000 Nucleated RBC % (auto) 0.0 ESR 67 H Anion Gap 16 Estim Creat Clear Calc 69.3 Estimated GFR > 60 Random Glucose 158 H Calcium 9.3 Total Bilirubin 0.5 AST 26 ALT 43 H Alkaline Phosphatase 99 Troponin I High Sens < 2.7 C-Reactive Protein 22.09 H Total Protein 7.4 Albumin 3.9 Urine Color Yellow Urine Appearance Clear Urine pH 6.5 Ur Specific [place] 1.010 Urine Protein 30 (1+) H Urine Glucose (UA) Negative Urine Ketones Trace Urine Blood Large (3+) H Urine Nitrite Negative Ur Leukocyte Esterase Negative Urine RBC >20 H Urine WBC 0-5 Ur Squamous Epith Cells 0-2 Urine Bacteria None Seen Hyaline Casts 0-2 Influenza Type A (PCR) NEGATIVE Influenza Type B (PCR) NEGATIVE RSV RNA Qual (PCR) NEGATIVE SARS-CoV-2 RNA (RT-PCR) NEGATIVE Imaging Radiologist's Impressions: Impressions Abdomen/Pelvis CT 08/11/23 18:06 IMPRESSION: 1. Increased pericardial effusion measuring up to 1.5 cm in thickness. 2. Increased consolidative airspace opacities in the right lung base with a trace right-sided pleural effusion. Findings could be related with atelectasis or aspiration. 3. A few pulmonary micronodules are not significantly changed compared to 04/07/2023. Recommend follow-up according to Fleischner's criteria (see below). 4. Slightly increased size of mediastinal lymph nodes without pathologic enlargement by CT short axis size criteria. Attention on follow-up recommended. 5. The appendix is mildly dilated measuring up to 0.9 cm however without significant wall thickening or periappendiceal inflammatory changes. Correlate clinically for acute appendicitis. 6. Minimal colonic diverticulosis but no evidence of acute diverticulitis. Moderate colonic stool burden. 7. 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 This could be further evaluated with a nonemergent MR of the pelvis if clinically deemed appropriate. 8. Stable mild asymmetric heterogeneity and enlargement of the left lobe of the thyroid. Based on the recommendations of the ACR Incidental Thyroid Findings Committee (JACR 2014; 12(2):143-50), further evaluation by thyroid ultrasound is recommended for a heterogeneously enlarged thyroid gland in patients that do not have limited life expectancy or significant co-morbidities, unless clinically warranted. According to the UPDATED 2017 Fleischner Society recommendations, the advised follow-up imaging for multiple solid nodules measuring up to 6-8 mm is follow-up CT at 3 to 6 months. In high-risk patients, subsequent CT follow-up at 18 to 24 months is recommended. In low-risk patients, subsequent CT follow-up at 18 to [address] is optional[address] CT 08/11/23 18:06 IMPRESSION: 1. Increased pericardial effusion measuring up to 1.5 cm in thickness. 2. Increased consolidative airspace opacities in the right lung base with a trace right-sided pleural effusion. Findings could be related with atelectasis or aspiration. 3. A few pulmonary micronodules are not significantly changed compared to 04/07/2023. Recommend follow-up according to Fleischner's criteria (see below). 4. Slightly increased size of mediastinal lymph nodes without pathologic enlargement by CT short axis size criteria. Attention on follow-up recommended. 5. The appendix is mildly dilated measuring up to 0.9 cm however without significant wall thickening or periappendiceal inflammatory changes. Correlate clinically for acute appendicitis. 6. Minimal colonic diverticulosis but no evidence of acute diverticulitis. Moderate colonic stool burden. 7. 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 This could be further evaluated with a nonemergent MR of the pelvis if clinically deemed appropriate. 8. Stable mild asymmetric heterogeneity and enlargement of the left lobe of the thyroid. Based on the recommendations of the ACR Incidental Thyroid Findings Committee (JACR 2014; 12(2):143-50), further evaluation by thyroid ultrasound is recommended for a heterogeneously enlarged thyroid gland in patients that do not have limited life expectancy or significant co-morbidities, unless clinically warranted. According to the UPDATED 2017 Fleischner Society recommendations, the advised follow-up imaging for multiple solid nodules measuring up to 6-8 mm is follow-up CT at 3 to 6 months. In high-risk patients, subsequent CT follow-up at 18 to 24 months is recommended. In low-risk patients, subsequent CT follow-up at 18 to 24 months is optional. Assessment and Plan (1) Pericardial effusion: Status: Acute (2) Systemic lupus erythematosus: Status: Acute Plan 57-year-old female with history of multinodular thyroid, ileitis, hyperlipidemia, SLE, inflammatory arthritis, and possible Sjogren's syndrome admitted for further management of pericardial effusion associated with SLE. #pericardial effusion associated with SLE -CT chest shows pericardial effusion about 1.5cm in size -Cardiology consult (recommended rheum consult) -ED reached out to [facility] recommending IV steroids (dose per cardiology), C3, C4, anti DNA ds (ordered) to eval for lupus flare -Will initiate 60mg solumedrol daily -echocardiogram -esr 67, CRP 22 -monitor on telemetry -outpt follow up with rheum #Atelectasis -likely 2/2 poor inspiratory effort secondary to chest pain from above -encourage breathing exercises, IS as tolerated #SLE -continue acyclovir due to immunocompromised status -continue colchicine, cyclobenzaprine, hydroxychloroquine -hold home prednisone # abdominal migraines -patient's to bring in Zomig nasal spray # hyperlipidemia -statin #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 Abel DVT prophylaxis-Lovenox Full code Patient requires inpatient stay at least 2 midnights for management of pericardial effusion associated with systemic lupus erythematous requiring IV steroids, echocardiogram, expert consultation Quality Stroke Does the patient have a stroke diagnosis?: No VTE Prior VTE?: No VTE Risk Level:: Medical - moderate - high VTE Device Contraindication: Treatment Not Indicated VTE Drug Contraindication: N/A - Med Ordered
[2023-08-11] MEDS: methylPREDNISolone Sod Succ 125 MG/2 ML VIAL IVPUSH (21:54)
[2023-08-11 22:23] VITALS: BP 147/74; PULSE 95; RESP 20; TEMP 36.7; O2SAT 97
[2023-08-12] VITALS (7 sets, daily range): BP systolic 111–147; BP diastolic 57–82; PULSE 63–102; RESP 18–20; TEMP 36.1–37.1; O2SAT 93–99; BMI 29.2
[2023-08-12] MEDS: NaPROXEN 500 MG TABLET PO (03:02)
[2023-08-12] MEDS: 0.9 % Sodium Chloride Flush 3 ML SYRINGE IVFLUSH ×3 (03:05→20:20)
[2023-08-12 07:05] LABS: Basophils Percent Auto 0.1 % (0-2); Hematocrit 41.9 % (37.0-47.0); Hemoglobin 14.3 g/dl (12.0-16.0); Imm Gran Abs Auto 0.09 X10*3/uL (0.00-0.03); Imm Gran Pct Auto 0.6 % (0.0-0.4); Lymphocytes Absolute Auto 0.7 X10*3/uL (1.2-4.9); Lymphocytes Percent Auto 4.9 % (20-40); MANUAL DIFF FLAG SCAN; Mean Corpuscular HGB Conc 34.1 g/dl (31.0-35.0); Mean Corpuscular Hemoglobin 30.6 pg (27.0-33.0); Mean Corpuscular Volume 89.7 fL (80.0-98.0); Monocytes Absolute Auto 0.1 X10*3/uL (0.1-1.2); Monocytes Percent Auto 0.9 % (2-11); Neutrophils Absolute Auto 13.1 x10*3/uL (2.0-8.3); Neutrophils Percent Auto 93.5 % (45-73); Platelet Count 310 X10*3/uL (160-400); Red Blood Count 4.67 X10*6/uL (4.20-5.50); Red Cell Distribution Width 14.2 % (11.0-16.0); SCAN SMEAR FLAG 1
[2023-08-12 07:09] LABS: Anion Gap 15 (12-20); Blood Urea Nitrogen 15 mg/dL (9-16); Calcium 9.5 mg/dL (8.4-10.2); Carbon Dioxide 24 mmol/L (22-29); Chloride 108 mmol/L (96-108); Creatinine Clr Calc Pharmacy 63.8; Estimated Glomerular Filt Rate > 60; Glucose Random 144 mg/dL (60-115); Potassium 4.5 mmol/L (3.3-5.1); Sodium 142 mmol/L (135-145)
[2023-08-12 07:33] LABS: SLIDE REVIEW VERIFIED
[2023-08-12] MEDS: methylPREDNISolone Sod Succ 125 MG/2 ML VIAL 60 MG IVPUSH (08:12)
[2023-08-12] MEDS: Acetaminophen 325 MG TABLET 650 MG PO (08:15)
--- NOTE | 2023-08-12 08:36 | PHA.MEDREC ---
Addendum entered by Raman Benton [facility] 08/12/23 17:37: Patient first said she's taking rosuvastatin 5 mg (said atorvastatin gives her muscle aches) but then brought in latest filled bottle which is 10 mg and she said she takes it at night. She also first said that she takes omeprazole every 3 days but later changed the narrative and said that she is trying to wean off but still actually takes 1 a day. All information was communicated to Dr. Pollard and he okay'ed the changes. Original Note: Pharmacy Consult ? Medication Reconciliation Pharmacy has completed the medication reconciliation. Spoke to patient and confirmed medication list. Patient said the latest home dose of prednisone is 6 mg and she's trying to ween off of omeprazole (only taking it every 3 days), the next time she needs a dose is saturday 08/12.
[2023-08-12] MEDS: Ondansetron ODT 4 MG TAB.RAPDIS TRANSLINGU (09:00)
[2023-08-12] MEDS: Cyclobenzaprine HCl 10 MG TABLET PO ×2 (10:03→20:14)
[2023-08-12] MEDS: Colchicine 0.6 MG TABLET PO ×2 (10:04→20:20)
[2023-08-12] MEDS: Hydroxychloroquine Sulfate 200 MG TABLET 300 MG PO (10:04)
--- NOTE | 2023-08-12 10:15 | HO.PM.IMPN ---
Subjective Subjective Date of Service: 08/12/23 Interval History: a bit better today Physical Exam Vital Signs: Vital Signs: Last Vital Signs Temp 97.0 F 08/12/23 07:50 Pulse 93 08/12/23 07:50 Resp 20 08/12/23 07:50 BP 127/77 08/12/23 07:50 Pulse Ox 99 08/12/23 07:50 O2 Del Method Room Air 08/12/23 07:50 BMI result Body Mass Index 29.2 General: AO X 3, no acute distress Resp: CTA bilateral, no accessory muscles used CVS: S1,S2,RRR GI: soft, non tender, non distended Neuro: motor grossly intact, alert Psych: appropriate affect, appropriate insight Objective Data Active Medications Acetaminophen (Acetaminophen 325 Mg Tablet) 650 mg PO Q6H PRN PRN Reason: Pain, Mild (Pain Scale 1-3) Last Admin: 08/12/23 08:15 Dose: 650 mg Documented By: JERILYN Acetaminophen/Butalbital/Caffeine (Butalb/Acetamin/Caff 50/325/40 Tablet) 1 tab PO Q4H PRN PRN Reason: Headache Acyclovir (Acyclovir 200 Mg Capsule) 400 mg PO BID [facility] Colchicine (Colchicine 0.6 Mg Tablet) 0.6 mg PO BID [facility] Last Admin: 08/12/23 10:04 Dose: 0.6 mg Documented By: JERILYN Cyclobenzaprine HCl (Cyclobenzaprine Hcl 10 Mg Tablet) 10 mg PO BID [facility] Last Admin: 08/12/23 10:03 Dose: 10 mg Documented By: JERILYN Dicyclomine HCl (Dicyclomine Hcl 10 Mg Capsule) 20 mg PO BID PRN PRN Reason: SPASMS Enoxaparin Sodium (Enoxaparin Sodium 40 Mg/0.4 Ml Syringe) 40 mg SUBCUT Q24H [facility] Last Admin: 08/11/23 21:50 Dose: Not Given Documented By: GYPSY Non-Admin Reason: Patient Refused Hydroxychloroquine Sulfate (Hydroxychloroquine Sulfate 200 Mg Tablet) 300 mg PO DAILY [facility] Last Admin: 08/12/23 10:04 Dose: 300 mg Documented By: JERILYN Lorazepam (Lorazepam 1 Mg Tablet) 1 mg PO BEDTIME PRN PRN Reason: anxiety Lorazepam (Lorazepam 1 Mg Tablet) 1 mg PO DAILY PRN PRN Reason: anxiety Methylprednisolone Sodium Succinate (Methylprednisolone Sod Succ 125 Mg/2 Ml Vial) 60 mg IVPUSH DAILY [facility] Last Admin: 08/12/23 08:12 Dose: 60 mg Documented By: JERILYN Metoclopramide HCl (Metoclopramide Hcl 10 Mg Tablet) 10 mg PO TID [facility] Non-Formulary Medication (Cyclosporine [Restasis]) 1 drop EYE-BOTH Q12H [facility] Non-Formulary Medication (Rosuvastatin) 5 mg PO DAILY [facility] Non-Formulary Medication (Triamcinolone Acetonide [Nasacort Allergy]) 1 spray NOSTRIL-B DAILY [facility] Non-Formulary Medication (Zolmitriptan [Zomig]) 1 spray NOSTRIL-B DAILY PRN PRN Reason: Migraine Headache Omeprazole (Omeprazole 40 Mg Capsule.Dr) 40 mg PO Q72H [facility] Ondansetron HCl (Ondansetron Odt 4 Mg Tab.Rapdis) 4 mg TRANSLINGU Q8H PRN PRN Reason: Nausea Last Admin: 08/12/23 09:00 Dose: 4 mg Documented By: JERILYN Senna (Sennosides 8.6 Mg Tablet) 17.2 mg PO BEDTIME PRN PRN Reason: Constipation Sodium Chloride (0.9 % Sodium Chloride Flush 3 Ml Syringe) 3 ml IVFLUSH QSHIFT [facility] Last Admin: 08/12/23 08:13 Dose: 3 ml Documented By: JERILYN Labs 08/12/23 06:30 08/12/23 06:30 Labs: Laboratory Results - last 24 hr 08/11/23 08/11/23 08/11/23 15:06 19:01 20:11 MCV 88.2 MCH 31.1 MCHC 35.3 H RDW 14.2 Plt Count 305 MPV 9.7 Immature Gran % (Auto) 0.7 H Neut % (Auto) 85.5 H Lymph % (Auto) 6.2 L [place] % (Auto) 7.3 Eos % (Auto) 0.0 Baso % (Auto) 0.3 Lymph # (Auto) 1.2 [place] # (Auto) 1.4 H Eos # (Auto) 0.0 Baso # (Auto) 0.1 Abs Immat Gran (auto) 0.14 H Absolute Neuts (auto) 16.7 H Absolute Nucleated RBC 0.000 Nucleated RBC % (auto) 0.0 Smear Tech's Comments ESR 67 H Anion Gap 16 Estim Creat Clear Calc 69.3 Estimated GFR > 60 Random Glucose 158 H Calcium 9.3 Total Bilirubin 0.5 AST 26 ALT 43 H Alkaline Phosphatase 99 Troponin I High Sens < 2.7 C-Reactive Protein 22.09 H Total Protein 7.4 Albumin 3.9 Urine Color Yellow Urine Appearance Clear Urine pH 6.5 Ur Specific [place] 1.010 Urine Protein 30 (1+) H Urine Glucose (UA) Negative Urine Ketones Trace Urine Blood Large (3+) H Urine Nitrite Negative Ur Leukocyte Esterase Negative Urine RBC >20 H Urine WBC 0-5 Ur Squamous Epith Cells 0-2 Urine Bacteria None Seen Hyaline Casts 0-2 Influenza Type A (PCR) NEGATIVE Influenza Type B (PCR) NEGATIVE RSV RNA Qual (PCR) NEGATIVE SARS-CoV-2 RNA (RT-PCR) NEGATIVE 08/12/23 06:30 MCV 89.7 MCH 30.6 MCHC 34.1 RDW 14.2 Plt Count 310 MPV 10.0 Immature Gran % (Auto) 0.6 H Neut % (Auto) 93.5 H Lymph % (Auto) 4.9 L [place] % (Auto) 0.9 L Eos % (Auto) 0.0 Baso % (Auto) 0.1 Lymph # (Auto) 0.7 L [place] # (Auto) 0.1 Eos # (Auto) 0.0 Baso # (Auto) 0.0 Abs Immat Gran (auto) 0.09 H Absolute Neuts (auto) 13.1 H Absolute Nucleated RBC 0.000 Nucleated RBC % (auto) 0.0 Smear Tech's Comments VERIFIED ESR Anion Gap 15 Estim Creat Clear Calc 63.8 Estimated GFR > 60 Random Glucose 144 H Calcium 9.5 Total Bilirubin AST ALT Alkaline Phosphatase Troponin I High Sens C-Reactive Protein Total Protein Albumin Urine Color Urine Appearance Urine pH Ur Specific [place] Urine Protein Urine Glucose (UA) Urine Ketones Urine Blood Urine Nitrite Ur Leukocyte Esterase Urine RBC Urine WBC Ur Squamous Epith Cells Urine Bacteria Hyaline Casts Influenza Type A (PCR) Influenza Type B (PCR) RSV RNA Qual (PCR) SARS-CoV-2 RNA (RT-PCR) Assessment and Plan (1) Acute pericardial effusion: Status: Acute Plan 57F PMH unspecified connective tissue disorder, hld, ileitis, mulitnodular thryoid presented with chest pain, found to have recurrent pericarditis now with pericardial effusion. acute pericarditis and pericardial effusion due to flare of unspecified connective tissue disorder steroids, echo, follow up c3,c4, dsdna (sheryl positive, previously other serologies negative) cardio eval colchicine, plaquenil hld statin neural sheath tumor see by dr rdz dvt prophylaxis - lovenox full code reason for continued hospitalization:working up pericardial effusion Quality Stroke Does the patient have a stroke diagnosis?: No VTE Prior VTE?: No VTE Risk Level:: Medical - moderate - high VTE Device Contraindication: Treatment Not Indicated VTE Drug Contraindication: N/A - Med Ordered
[2023-08-12] MEDS: Metoclopramide HCl 10 MG TABLET PO ×3 (10:44→20:22)
[2023-08-12] MEDS: Acyclovir 200 MG CAPSULE 400 MG PO ×2 (10:44→20:19)
[2023-08-12] MEDS: Butalb/Acetamin/Caff 50/325/40 TABLET 1 TAB PO (10:44)
--- NOTE | 2023-08-12 12:18 | PM.CNCAR ---
History of Present Illness History of Present Illness Date of Service: 08/12/23 Requesting physician: Elieser Pollard Chief complaint: pericardial effusion Narrative: I was consulted to see Cookie in cardiology consultation today for recurrent pericarditis and pericardial effusion. 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 She was coming down on steroid dosing and about 4 5 days ago started developing chest pain which is positional and worse with deep breathing. She initially sought this is because of coming off her steroid dose and remain at home. Then she continued to have symptoms and came to the emergency room. She was noted to have significantly elevated inflammatory markers with recurrent chest pain and CT scan suggestive of slightly increased pericardial effusion. She was therefore admitted. She is got 1 dose of Solu-Medrol as per her. She continues to have some discomfort but says better than yesterday. Denies any shortness of breath. No lightheadedness, syncope. Blood pressures remained stable. Review of Systems Constitutional: Constitutional: Denies no additional constitutional complaints, Denies chills and Denies fever(s) Eyes: Eyes: Reports no additional eye complaints Cardiovascular: Cardiovascular: Denies chest pain with activity, Denies lightheadedness, Denies Loss of Consciousness, Denies palpitations, Denies dyspnea and Denies dyspnea on exertion Respiratory: Respiratory: Reports pain on inspiration, Reports pain with cough, Denies dyspnea and Denies dyspnea on exertion Gastrointestinal: Gastrointestinal: Reports no additional gastrointestinal complaints Genitourinary: Genitourinary: Reports no additional female genitourinary complaints Musculoskeletal: Musculoskeletal: Reports no additional musculoskeletal complaints Integumentary/Breasts: Skin/Breast: Reports system reviewed and no additional complaints, except as docu Psychiatric: Psychiatric: Reports no additional psychiatric complaints Endocrine: Endocrine: Denies palpitations PMFSH Past Medical History Medical History Pericardial effusion Esophageal candidiasis Ileitis Abdominal pain Inflammation of small intestine History of anesthesia complications Hx of chest pain Fusion of spine, cervical region TMJ syndrome Hx of gastritis Cervical radiculopathy Elevated cholesterol Osteoarthritis Hx of migraine headaches Multinodular thyroid Family History Family History Mother Diabetes Uterine cancer Hypertension Father Diabetes Hypertension Stroke Family/Other Colon cancer Surgical History Surgical History Hx of shoulder surgery S/P thyroid biopsy H/O colonoscopy History of esophagogastroduodenoscopy (EGD) History of spinal fusion Hx of dilation and curettage Hx of cholecystectomy Hx of tonsillectomy Hx of tubal ligation Social History Social History Household Members: Spouse Housing: House Are you a primary acute care assistant to a significant other at home: No Do you presently have visiting nurse or other home services: No Alcohol intake: never Patient Tobacco Use Status: Former Tobacco user Quit Date: 1990 Tobacco use type: Cigarette Cigarettes Per Day: 10 Years Smoked: 5 Substance Use Type: Marijuana service: No Current occupational status: employed Current occupation: right hand dominant Meds Allergies Allergy/AdvReac Type Severity Reaction Status Date / Time pollen extracts Allergy Intermediate Runny Nose Verified 06/12/23 08:08 atorvastatin Allergy Mild muscle pain Verified 06/12/23 08:08 blue dye Allergy Mild Unknown Verified 06/12/23 08:08 iodine Allergy Mild Itching Verified 06/12/23 08:08 red dye Allergy Mild Unknown Verified 06/12/23 08:08 tree and shrub pollen Allergy Mild Nasal Verified 06/12/23 08:08 congestion erythromycin base Allergy Nausea and Verified 06/12/23 08:08 Vomiting azathioprine AdvReac Severe vomiting Verified 06/12/23 08:08 and diarrhea stevioside [From Stevia] AdvReac Abdominal Verified 06/12/23 08:08 Pain green dye Allergy Severe Headache Uncoded 06/12/23 08:08 molds and smuts Allergy Severe hadache Uncoded 06/12/23 08:08 Active Medications: Current Medications Acetaminophen (Acetaminophen 325 Mg Tablet) 650 mg PO Q6H PRN PRN Reason: Pain, Mild (Pain Scale 1-3) Last Admin: 08/12/23 08:15 Dose: 650 mg Acetaminophen/Butalbital/Caffeine (Butalb/Acetamin/Caff 50/325/40 Tablet) 1 tab PO Q4H PRN PRN Reason: Headache Last Admin: 08/12/23 10:44 Dose: 1 tab Acyclovir (Acyclovir 200 Mg Capsule) 400 mg PO BID [facility] Last Admin: 08/12/23 10:44 Dose: 400 mg Colchicine (Colchicine 0.6 Mg Tablet) 0.6 mg PO BID [facility] Last Admin: 08/12/23 10:04 Dose: 0.6 mg Cyclobenzaprine HCl (Cyclobenzaprine Hcl 10 Mg Tablet) 10 mg PO BID [facility] Last Admin: 08/12/23 10:03 Dose: 10 mg Dicyclomine HCl (Dicyclomine Hcl 10 Mg Capsule) 20 mg PO BID PRN PRN Reason: SPASMS Enoxaparin Sodium (Enoxaparin Sodium 40 Mg/0.4 Ml Syringe) 40 mg SUBCUT Q24H [facility] Last Admin: 08/11/23 21:50 Dose: Not Given Hydroxychloroquine Sulfate (Hydroxychloroquine Sulfate 200 Mg Tablet) 300 mg PO DAILY [facility] Last Admin: 08/12/23 10:04 Dose: 300 mg Lorazepam (Lorazepam 1 Mg Tablet) 1 mg PO BEDTIME PRN PRN Reason: anxiety Lorazepam (Lorazepam 1 Mg Tablet) 1 mg PO DAILY PRN PRN Reason: anxiety Methylprednisolone Sodium Succinate (Methylprednisolone Sod Succ 125 Mg/2 Ml Vial) 60 mg IVPUSH DAILY [facility] Last Admin: 08/12/23 08:12 Dose: 60 mg Metoclopramide HCl (Metoclopramide Hcl 10 Mg Tablet) 10 mg PO TID [facility] Last Admin: 08/12/23 10:44 Dose: 10 mg Non-Formulary Medication (Cyclosporine [Restasis]) 1 drop EYE-BOTH Q12H [facility] Non-Formulary Medication (Rosuvastatin) 5 mg PO DAILY [facility] Non-Formulary Medication (Triamcinolone Acetonide [Nasacort Allergy]) 1 spray NOSTRIL-B DAILY [facility] Non-Formulary Medication (Zolmitriptan [Zomig]) 1 spray NOSTRIL-B DAILY PRN PRN Reason: Migraine Headache Omeprazole (Omeprazole 40 Mg Capsule.Dr) 40 mg PO Q72H [facility] Ondansetron HCl (Ondansetron Odt 4 Mg Tab.Rapdis) 4 mg TRANSLINGU Q8H PRN PRN Reason: Nausea Last Admin: 08/12/23 09:00 Dose: 4 mg Senna (Sennosides 8.6 Mg Tablet) 17.2 mg PO BEDTIME PRN PRN Reason: Constipation Sodium Chloride (0.9 % Sodium Chloride Flush 3 Ml Syringe) 3 ml IVFLUSH QSHIFT [facility] Last Admin: 08/12/23 08:13 Dose: 3 ml Home Medications Medication Instructions Recorded Confirmed Last Taken Type acyclovir 400 mg tablet 400 mg PO BID 06/27/22 08/12/23 08/11/23 History cyclobenzaprine 10 mg tablet 10 mg PO BID 06/27/22 08/12/23 08/11/23 History ondansetron HCl 4 mg tablet 4 mg PO DAILY PRN Nausea 06/27/22 08/12/23 Unknown History zolmitriptan 5 mg nasal spray 1 spray intranasal DAILY PRN 09/24/22 08/12/23 Unknown History (Zomig) Migraine Headache cyclosporine 0.05 % eye drops in a 1 drp ophthalmic (eye) Q12H 09/25/22 08/12/23 Unknown History dropperette (Restasis) triamcinolone acetonide 55 mcg 1 spray intranasal DAILY 09/25/22 08/12/23 Unknown History nasal spray aerosol (Nasacort Allergy) lorazepam 0.5 mg tablet 0.5 mg PO DAILY PRN anxiety 01/11/23 08/12/23 Unknown History rosuvastatin 5 mg tablet 5 mg PO DAILY 05/11/23 08/12/23 08/11/23 History colchicine 0.6 mg tablet 0.6 mg PO BID 05/22/23 08/12/23 08/11/23 History dicyclomine 20 mg tablet 20 mg PO BID PRN SPASMS 08/12/23 08/12/23 Unknown History omeprazole 40 mg capsule,delayed 40 mg PO Q72H 08/12/23 08/12/23 08/10/23 History release prednisone 1 mg tablet 6 mg PO DAILY 08/12/23 08/12/23 08/11/23 History Physical Exam Vital Signs: Vital Signs: Last Vital Signs Temp 97.0 F 08/12/23 11:15 Pulse 95 08/12/23 11:15 Resp 18 08/12/23 11:15 BP 140/82 H 08/12/23 11:15 Pulse Ox 96 08/12/23 11:15 O2 Del Method Room Air 08/12/23 11:15 BMI result Body Mass Index 29.2 Const: General: cooperative, comfortable, no acute distress, alert and awake Nutritional Appearance: overweight Orientation/consciousness: patient oriented x3 HEENT: Head: Yes normocephalic and Yes atraumatic Neck: Neck: Yes trachea midline, Yes supple and Yes no JVD Resp: Effort & Inspection: normal respiratory effort Auscultation: clear to auscultation bilaterally Cardio: Jugular venous distension: no JVD Palpation: normal PMI Rate: regular rate Rhythm: regular rhythm Heart sounds: S1 normal heart sound present, S2 normal heart sound present, no click, no gallops, no murmurs and no rubs GI: Auscultation: normal bowel sounds Skin: General skin exam: no rashes or lesions noted Neuro: General: patient oriented x3 and no focal motor deficits Extrem: General: Yes no clubbing, cyanosis or edema Objective Labs and Meds 08/12/23 06:30 08/12/23 06:30 Lab results: Laboratory Results - last 24 hr 08/11/23 08/11/23 08/11/23 15:06 19:01 20:11 WBC 19.5 H RBC 4.82 Hgb 15.0 Hct 42.5 MCV 88.2 MCH 31.1 MCHC 35.3 H RDW 14.2 Plt Count 305 MPV 9.7 Immature Gran % (Auto) 0.7 H Neut % (Auto) 85.5 H Lymph % (Auto) 6.2 L [place] % (Auto) 7.3 Eos % (Auto) 0.0 Baso % (Auto) 0.3 Lymph # (Auto) 1.2 [place] # (Auto) 1.4 H Eos # (Auto) 0.0 Baso # (Auto) 0.1 Abs Immat Gran (auto) 0.14 H Absolute Neuts (auto) 16.7 H Absolute Nucleated RBC 0.000 Nucleated RBC % (auto) 0.0 Smear Tech's Comments ESR 67 H Sodium 140 Potassium 4.2 Chloride 107 Carbon Dioxide 21 L Anion Gap 16 BUN 11 Creatinine 0.86 Estim Creat Clear Calc 69.3 Estimated GFR > 60 Random Glucose 158 H Calcium 9.3 Total Bilirubin 0.5 AST 26 ALT 43 H Alkaline Phosphatase 99 Troponin I High Sens < 2.7 C-Reactive Protein 22.09 H Total Protein 7.4 Albumin 3.9 Urine Color Yellow Urine Appearance Clear Urine pH 6.5 Ur Specific [place] 1.010 Urine Protein 30 (1+) H Urine Glucose (UA) Negative Urine Ketones Trace Urine Blood Large (3+) H Urine Nitrite Negative Ur Leukocyte Esterase Negative Urine RBC >20 H Urine WBC 0-5 Ur Squamous Epith Cells 0-2 Urine Bacteria None Seen Hyaline Casts 0-2 Influenza Type A (PCR) NEGATIVE Influenza Type B (PCR) NEGATIVE RSV RNA Qual (PCR) NEGATIVE SARS-CoV-2 RNA (RT-PCR) NEGATIVE 08/12/23 06:30 WBC 14.0 H RBC 4.67 Hgb 14.3 Hct 41.9 MCV 89.7 MCH 30.6 MCHC 34.1 RDW 14.2 Plt Count 310 MPV 10.0 Immature Gran % (Auto) 0.6 H Neut % (Auto) 93.5 H Lymph % (Auto) 4.9 L [place] % (Auto) 0.9 L Eos % (Auto) 0.0 Baso % (Auto) 0.1 Lymph # (Auto) 0.7 L [place] # (Auto) 0.1 Eos # (Auto) 0.0 Baso # (Auto) 0.0 Abs Immat Gran (auto) 0.09 H Absolute Neuts (auto) 13.1 H Absolute Nucleated RBC 0.000 Nucleated RBC % (auto) 0.0 Smear Tech's Comments VERIFIED ESR Sodium 142 Potassium 4.5 Chloride 108 Carbon Dioxide 24 Anion Gap 15 BUN 15 Creatinine 0.92 Estim Creat Clear Calc 63.8 Estimated GFR > 60 Random Glucose 144 H Calcium 9.5 Total Bilirubin AST ALT Alkaline Phosphatase Troponin I High Sens C-Reactive Protein Total Protein Albumin Urine Color Urine Appearance Urine pH Ur Specific [place] Urine Protein Urine Glucose (UA) Urine Ketones Urine Blood Urine Nitrite Ur Leukocyte Esterase Urine RBC Urine WBC Ur Squamous Epith Cells Urine Bacteria Hyaline Casts Influenza Type A (PCR) Influenza Type B (PCR) RSV RNA Qual (PCR) SARS-CoV-2 RNA (RT-PCR) Imaging Radiologist's impression: Impressions Abdomen/Pelvis CT 08/11/23 18:06 IMPRESSION: 1. Increased pericardial effusion measuring up to 1.5 cm in thickness. 2. Increased consolidative airspace opacities in the right lung base with a trace right-sided pleural effusion. Findings could be related with atelectasis or aspiration. 3. A few pulmonary micronodules are not significantly changed compared to 04/07/2023. Recommend follow-up according to Fleischner's criteria (see below). 4. Slightly increased size of mediastinal lymph nodes without pathologic enlargement by CT short axis size criteria. Attention on follow-up recommended. 5. The appendix is mildly dilated measuring up to 0.9 cm however without significant wall thickening or periappendiceal inflammatory changes. Correlate clinically for acute appendicitis. 6. Minimal colonic diverticulosis but no evidence of acute diverticulitis. Moderate colonic stool burden. 7. 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 This could be further evaluated with a nonemergent MR of the pelvis if clinically deemed appropriate. 8. Stable mild asymmetric heterogeneity and enlargement of the left lobe of the thyroid. Based on the recommendations of the ACR Incidental Thyroid Findings Committee (JACR 2014; 12(2):143-50), further evaluation by thyroid ultrasound is recommended for a heterogeneously enlarged thyroid gland in patients that do not have limited life expectancy or significant co-morbidities, unless clinically warranted. According to the UPDATED 2017 Fleischner Society recommendations, the advised follow-up imaging for multiple solid nodules measuring up to 6-8 mm is follow-up CT at 3 to 6 months. In high-risk patients, subsequent CT follow-up at 18 to 24 months is recommended. In low-risk patients, subsequent CT follow-up at 18 to [address] is [address] CT 08/11/23 18:06 IMPRESSION: 1. Increased pericardial effusion measuring up to 1.5 cm in thickness. 2. Increased consolidative airspace opacities in the right lung base with a trace right-sided pleural effusion. Findings could be related with atelectasis or aspiration. 3. A few pulmonary micronodules are not significantly changed compared to 04/07/2023. Recommend follow-up according to Fleischner's criteria (see below). 4. Slightly increased size of mediastinal lymph nodes without pathologic enlargement by CT short axis size criteria. Attention on follow-up recommended. 5. The appendix is mildly dilated measuring up to 0.9 cm however without significant wall thickening or periappendiceal inflammatory changes. Correlate clinically for acute appendicitis. 6. Minimal colonic diverticulosis but no evidence of acute diverticulitis. Moderate colonic stool burden. 7. 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 This could be further evaluated with a nonemergent MR of the pelvis if clinically deemed appropriate. 8. Stable mild asymmetric heterogeneity and enlargement of the left lobe of the thyroid. Based on the recommendations of the ACR Incidental Thyroid Findings Committee (JACR 2014; 12(2):143-50), further evaluation by thyroid ultrasound is recommended for a heterogeneously enlarged thyroid gland in patients that do not have limited life expectancy or significant co-morbidities, unless clinically warranted. According to the UPDATED 2017 Fleischner Society recommendations, the advised follow-up imaging for multiple solid nodules measuring up to 6-8 mm is follow-up CT at 3 to 6 months. In high-risk patients, subsequent CT follow-up at 18 to 24 months is recommended. In low-risk patients, subsequent CT follow-up at 18 to 24 months is optional. Assessment and Plan (1) Pericardial effusion: Status: Acute Pericardial effusion which seems by CT scan which is not ideal test for evaluation pericardial effusion. Obtain echocardiogram tomorrow to evaluate for severity as well as hemodynamic compromise. Meanwhile she require anti-inflammatory therapy to reduce accumulation of pericardial fluid and control of her pericarditis. Agree with increase Solu-Medrol dose. Continue with colchicine and Plaquenil. Consider nonsteroidals in addition with GI protection. Rheumatology consultation. Do not think she has clinically any signs of cardiac tamponade at this point time. Will review the echocardiogram tomorrow. Procedures Date of Service Date of Service: 08/12/23
--- NOTE | 2023-08-12 12:23 | MHC.CM.PN ---
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 PT PCP ON FILE IS CORRECT NII WALTON MD, FULLY COVID VAXED W/[employer] AND PT REPORTS SHE WILL GET A COPY OF HER HCP AND HAVE IT PLACED IN EXPANSE.
[2023-08-12] MEDS: LORazepam 1 MG TABLET PO ×2 (12:46→22:25)
[2023-08-12] MEDS: ROSUVASTATIN 10 MG 10 EACH PO (20:17)
[2023-08-12] MEDS: ZOLMITRIPTAN 5 MG 5 EACH PO (22:25)
[2023-08-13 03:19] VITALS: BP 115/56; PULSE 80; RESP 17; TEMP 36.3; O2SAT 97
[2023-08-13] MEDS: Omeprazole 40 MG CAPSULE.DR PO (06:35)
--- NOTE | 2023-08-13 07:00 | CA_ITS ---
Transthoracic Echocardiogram Patient (Last, First, Middle): Cookie Nielsen, Gender: Female Date of : 1965 Age: 57 Procedure Date: 08/13/2023 Procedure Type: Transthoracic Echocardiogram [place] [facility] [place]: 160.02 cm Weight: 74.84 kg BSA: 1.78 m2 Heart Rate: 81 bpm BP: 120 / 67 mmHg Goal Umpire: Referring MD: Nazia HAMLIN Symptoms: pericardial effusion Study Quality: Fair ECG Rhythm: Sinus Conclusions: - The left ventricular systolic function is normal. The calculated ejection fraction is 68% by biplane method. - No obvious valvular pathology seen on this study. - Over the right ventricle, cannot differentiate pericardial fat vs small effusion. Otherwise trace to small pericardial effusion. Findings Left Ventricle Normal left ventricular cavity size. There is mildly increased left ventricular wall thickness. The left ventricular systolic function is normal. The calculated ejection fraction is 68% by biplane method. There is no evidence of regional wall motion abnormalities. Diastolic function is normal for age. Right Ventricle Normal right ventricular cavity size and systolic function. Atria Both atria are normal in size. Aortic Valve There is a normal trileaflet aortic valve. There is no aortic valve stenosis. There is no aortic valve regurgitation. Mitral Valve The mitral valve appears normal. There is no mitral valve regurgitation. There is no mitral valve stenosis. Pulmonic Valve The pulmonic valve is likely normal. Tricuspid Valve There is trace tricuspid valve regurgitation. There is no evidence of pulmonary hypertension. Great Vessels The asc aorta is normal in size. Venous The inferior vena cava is normal in size and collapses greater than 50% with inspiration. Pericardium/Pleural Over the right ventricle, cannot differentiate pericardial fat vs small effusion. Otherwise trace to small pericardial effusion. Prior Study Comparison No significant change compared to prior study dated: 11/10/2022. Recommendations, Care & Conclusions No obvious valvular pathology seen on this study. Measurements 2D Linear Measurements IVSd: 1.15 0.6-0.9/0.6-1.0 cm LVIDd: 3.73 3.9-5.3/4.2-5.9 cm LVIDd Index: 2.10 2.4-3.2/2.2-3.1 cm/m2 LVIDs: 2.08 2.0-3.6 cm LVPWd: 1.07 0.7-1.1 cm LA Diam: 3.40 2.7-3.8/3.0-4.0 cm LAIDs Index: 1.91 1.5-2.3 cm/m2 LV Mass: 165.10 67-162/88-224 g LV Mass Index: 92.75 43-95/49-115 g/m2 LVOT Diam: 2.00 3.0+(-)1.3 cm 2D Systolic Function EF 4C: 67.00 >55% EF 2C: 70.00 >55% EF BiP: 68.10 >55% Mitral Valve MV Pk E: 0.69 MV PK A: 0.68 MV Decel Time: 215.00 E/A: 1.00 E'Lateral: 7.62 E'Medial: 7.40 E/E' Med: 9.40 E/E' Lat: 9.10 PHT: 63.00 MVA PHT: 3.49 Decel Clinch: 3.22 Aortic Valve AoV Pk Alonso: 1.14 AoV Mn Alonso: 0.65 AoV VTI: 0.23 AoV Pk Grad: 5.00 Aov Mn Grad: 2.00 SANDRA Cont.VTI: 3.03 LVOT LVOT Pk Alonso: 1.02 LVOT Mn Alonso: 0.69 LVOT VTI: 0.22 LVOT Pk Grad: 4.00 LVOT Mn Grad: 2.00 LVOT Diam: 2.00 LVOT Area: 3.14 Diastolic Function MV Pk E: 0.69 MV Pk A: 0.68 E/A: 1.00 E'Medial: 7.40 E/E' Med: 9.40 E' Laterial: 7.62 E/E' Lat: 9.10 Right Ventricle TAPSE (mm): 18.40 TVS' Alonso: 8.59 Tricuspid Valve TR Pk Alonso: 2.25 TR Pk Grad: 20.00 Great Vessels Aorta Sinus of Valsalva: 3.10 2.0-3.5 cm Ao Asc: 2.90 2.1-3.4 cm Pulmonary Valve PV Pk Alonso: 0.88 Peak PV Grad: 3.00 Updated in Other Vendor System with Status of Final Blayne Loya MD electronically signed on 08/13/2023 11:20:10 AM with status of Final
[2023-08-13 07:12] VITALS: BP 120/67; PULSE 74; RESP 20; TEMP 36.3; O2SAT 99
[2023-08-13] MEDS: Colchicine 0.6 MG TABLET PO ×2 (07:54→23:10)
[2023-08-13] MEDS: Acyclovir 200 MG CAPSULE 400 MG PO ×2 (07:54→23:11)
[2023-08-13] MEDS: Metoclopramide HCl 10 MG TABLET PO ×3 (07:54→23:10)
[2023-08-13] MEDS: Cyclobenzaprine HCl 10 MG TABLET PO ×2 (07:54→23:12)
[2023-08-13] MEDS: Hydroxychloroquine Sulfate 200 MG TABLET 300 MG PO (07:55)
[2023-08-13] MEDS: methylPREDNISolone Sod Succ 125 MG/2 ML VIAL 60 MG IVPUSH (07:58)
[2023-08-13] MEDS: 0.9 % Sodium Chloride Flush 3 ML SYRINGE IVFLUSH ×2 (07:58→16:19)
--- NOTE | 2023-08-13 08:26 | P.PNIM_ITS ---
Subjective Subjective Date of Service: 08/13/23 Interval History: improving Physical Exam 2 Vital Signs: Vital Signs: Last Vital Signs Temp 97.3 F 08/13/23 07:12 Pulse 74 08/13/23 07:12 Resp 20 08/13/23 07:12 BP 120/67 08/13/23 07:12 Pulse Ox 99 08/13/23 07:12 O2 Del Method Room Air 08/13/23 07:12 BMI result Body Mass Index 29.2 Const: General: cooperative, comfortable, no acute distress, alert and awake Nutritional Appearance: overweight Orientation/consciousness: patient oriented x3 HEENT: Head: Yes normocephalic and Yes atraumatic Neck: Neck: Yes trachea midline, Yes supple and Yes no JVD Resp: Effort & Inspection: normal respiratory effort Auscultation: clear to auscultation bilaterally Cardio: Jugular venous distension: no JVD Palpation: normal PMI Rate: r egular rate Rhythm: regular rhythm Heart sounds: S1 normal heart sound present, S2 normal heart sound present, no click, no gallops, no murmurs and no rubs GI: Auscultation: normal bowel sounds Skin: General skin exam: no rashes or lesions noted Neuro: General: patient oriented x3 and no focal motor deficits Extrem: General: Yes no clubbing, cyanosis or edema Objective Data Active Medications Acetaminophen (Acetaminophen 325 Mg Tablet) 650 mg PO Q6H PRN PRN Reason: Pain, Mild (Pain Scale 1-3) Last Admin: 08/12/23 08:15 Dose: 650 mg Documented By: JERILYN Acetaminophen/Butalbital/Caffeine (Butalb/Acetamin/Caff 50/325/40 Tablet) 1 tab PO Q4H PRN PRN Reason: Headache Last Admin: 08/12/23 10:44 Dose: 1 tab Documented By: JERILYN Acyclovir (Acyclovir 200 Mg Capsule) 400 mg PO BID [facility] Last Admin: 08/13/23 07:54 Dose: 400 mg Documented By: JERILYN Colchicine (Colchicine 0.6 Mg Tablet) 0.6 mg PO BID [facility] Last Admin: 08/13/23 07:54 Dose: 0.6 mg Documented By: JERILYN Cyclobenzaprine HCl (Cyclobenzaprine Hcl 10 Mg Tablet) 10 mg PO BID [facility] Last Admin: 08/13/23 07:54 Dose: 10 mg Documented By: JERILYN Dicyclomine HCl (Dicyclomine Hcl 10 Mg Capsule) 20 mg PO BID PRN PRN Reason: SPASMS Enoxaparin Sodium (Enoxaparin Sodium 40 Mg/0.4 Ml Syringe) 40 mg SUBCUT Q24H [facility] Last Admin: 08/12/23 22:03 Dose: Not Given Documented By: VENUS Non-Admin Reason: Patient Refused Hydroxychloroquine Sulfate (Hydroxychloroquine Sulfate 200 Mg Tablet) 300 mg PO DAILY [facility] Last Admin: 08/13/23 07:55 Dose: 300 mg Documented By: JERILYN Lorazepam (Lorazepam 1 Mg Tablet) 1 mg PO BEDTIME PRN PRN Reason: anxiety Last Admin: 08/12/23 22:25 Dose: 1 mg Documented By: VENUS Lorazepam (Lorazepam 1 Mg Tablet) 1 mg PO DAILY PRN PRN Reason: anxiety Last Admin: 08/12/23 12:46 Dose: 1 mg Documented By: JERILYN Methylprednisolone Sodium Succinate (Methylprednisolone Sod Succ 125 Mg/2 Ml Vial) 60 mg IVPUSH DAILY [facility] Last Admin: 08/13/23 07:58 Dose: 60 mg Documented By: JERILYN Metoclopramide HCl (Metoclopramide Hcl 10 Mg Tablet) 10 mg PO TID [facility] Last Admin: 08/13/23 07:54 Dose: 10 mg Documented By: JERILYN Pt Own (Restasis 0. (05 % Dropperette)) 1 drop EYE-BOTH Q12H [facility] Last Admin: 08/13/23 07:58 Dose: 1 drop Documented By: JERILYN Pt Own ( Triamcinolone Acetonide [Nasacort Allergy] 55 Mcg Aerosol,[place]) 1 spray NOSTRIL-B DAILY [facility] Last Admin: 08/13/23 07:58 Dose: 1 spray Documented By: JERILYN Pt Own (Zolmitriptan [Zomig] 5 Mg [place], Non-Aerosol) 1 spray NOSTRIL-L DAILY PRN PRN Reason: Migraine Headache Last Admin: 08/12/23 20:18 Dose: 1 spray Documented By: VENUS Pt Own (Zolmitriptan (5 Mg Tablet)) 5 mg PO DAILY PRN PRN Reason: migraine Last Admin: 08/12/23 22:25 Dose: 5 mg Documented By: VENUS Pt Own (Rosuvastatin (10 Mg Tablet)) 10 mg PO BEDTIME [facility] Last Admin: 08/12/23 20:17 Dose: 10 mg Documented By: VENUS Omeprazole (Omeprazole 40 Mg Capsule.) 40 mg PO DAILY@0630 [facility] Last Admin: 08/13/23 06:35 Dose: 40 mg Documented By: VENUS Ondansetron HCl (Ondansetron Odt 4 Mg Tab.Rapdis) 4 mg TRANSLINGU Q8H PRN PRN Reason: Nausea Last Admin: 08/12/23 09:00 Dose: 4 mg Documented By: JERILYN Senna (Sennosides 8.6 Mg Tablet) 17.2 mg PO BEDTIME PRN PRN Reason: Constipation Sodium Chloride (0.9 % Sodium Chloride Flush 3 Ml Syringe) 3 ml IVFLUSH QSHIFT [facility] Last Admin: 08/13/23 07:58 Dose: 3 ml Documented By: JERILYN Labs 08/12/23 06:30 08/12/23 06:30 Assessment and Plan (1) Acute pericardial effusion: Status: Acute Plan 57F PMH unspecified connective tissue disorder, hld, ileitis, mulitnodular thryoid presented with chest pain, found to have recurrent pericarditis now with pericardial effusion. acute pericarditis and pericardial effusion due to flare of unspecified connective tissue disorder continue solumedrol 60mg daily follow up echo follow up c3,c4, dsdna (sheryl positive, previously other serologies negative) cardio following continue colchicine, plaquenil follows with Dr. 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
[2023-08-13 11:14] VITALS: BP 142/86; PULSE 94; RESP 20; TEMP 36.3; O2SAT 97
[2023-08-13 15:51] VITALS: BP 163/66; PULSE 66; RESP 20; TEMP 36.9; O2SAT 98
[2023-08-13 19:06] VITALS: BP 141/73; PULSE 79; RESP 18; TEMP 36.5; O2SAT 98
[2023-08-13] MEDS: LORazepam 1 MG TABLET PO (23:12)
[2023-08-13] MEDS: ROSUVASTATIN 10 MG 10 EACH PO (23:16)
[2023-08-13] MEDS: Acetaminophen 325 MG TABLET 650 MG PO (23:18)
[2023-08-13 23:49] VITALS: BP 135/79; PULSE 76; RESP 18; TEMP 36.7; O2SAT 98
[2023-08-14 04:00] VITALS: BP 116/75; PULSE 87; RESP 18; TEMP 36.3; O2SAT 96
[2023-08-14] MEDS: Omeprazole 40 MG CAPSULE.DR PO (06:50)
[2023-08-14 07:55] VITALS: BP 116/75; PULSE 89; RESP 18; TEMP 36; O2SAT 99
[2023-08-14] MEDS: methylPREDNISolone Sod Succ 125 MG/2 ML VIAL 60 MG IVPUSH (08:06)
[2023-08-14] MEDS: Acyclovir 200 MG CAPSULE 400 MG PO (08:07)
[2023-08-14] MEDS: Cyclobenzaprine HCl 10 MG TABLET PO (08:07)
[2023-08-14] MEDS: Hydroxychloroquine Sulfate 200 MG TABLET 300 MG PO (08:09)
[2023-08-14] MEDS: Colchicine 0.6 MG TABLET PO (08:09)
[2023-08-14] MEDS: Metoclopramide HCl 10 MG TABLET PO (08:09)
[2023-08-14] MEDS: 0.9 % Sodium Chloride Flush 3 ML SYRINGE IVFLUSH (08:11)
--- NOTE | 2023-08-14 08:30 | PC.NURSE ---
pt IV causing pt pain, requested to have it removed. Prior shift unable to obtain second access. pt is no longer receiving IV medications and is medically stable. MD contacted and stated it was okay if pt does not have IV access
--- NOTE | 2023-08-14 09:29 | P.DS_ITS ---
DS: Providers Provider Date of Service: 08/14/23 Date of admission: 08/11/23 20:41 Primary care physician: Regina Paz MD Consults: 08/11/23 20:49 Consult to Cardiology Routine Consulting Provider: [facility] [place] Cardiovascular Services Reason for consultation: pericardial effusion DS: Diagnosis Discharge Diagnosis (1) Acute pericardial effusion: Status: Acute DS: Summary Hospital Course Hospital Course: from initial hpi: 57-year-old female with history of multinodular thyroid, ileitis, hyperlipidemia, SLE, inflammatory arthritis, and possible Sjogren's syndrome presented to the ED accompanied by her , Roni, earlier today for evaluation of chest pain with associated dyspnea ongoing for 4 days. She reports a pressure in her chest that worsens when lying flat and improves when sitting up straight. She states when ambulating even short distances she will developed palpitations with heart rate between 120-130s. She was also been experiencing significant fatigue over the last 2 weeks. She describes the chest pain is constant nonradiating and associated with an air hunger. She has had a cough but this is nonproductive and remains unchanged. There is also RUQ pain just inferior to the diaphragm. No n,v,d,melena, hematochezia. Denies fevers or chills. He has been following with a new epic cupid specialists at [facility] and was recently taken off of her Plaquenil which she had been on for many years as her epic cup[facility] specialists was uncertain if she truly had lupus but was continued on a steroid taper. On arrival, vital signs stable, mildly tachycardic to 107. She has a chronic leukocytosis, hematology studies otherwise unremarkable. Renal function and electrolyte levels normal except for CO2 21. CRP 22.09, ESR 67. Urinalysis with 3+ blood, otherwise unremarkable. Negative for COVID-19, influenza, RSV. CT chest shows increased pericardial effusion measuring up to 1.5 cm in thickness as well as increased consolidative airspace opacities in the right lung base with a trace right-sided pleural effusion, most likely atelectasis rather than aspiration. There were also few pulmonary micro nodules unchanged from prior imaging and slightly increased size of mediastinal lymph nodes without pathologic enlargement. CT abdomen/pelvis shows a mildly dilated appendix. 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 EKG shows sinus tachycardia, rate 101, slight twave inversion III, aVR, V1. No significant change from priors. No LACHO/depressions. ED provider discussed cased with cardi ology recommending admission but advising patient's epic cupid specialists be contacted for recommendation. Pt will be admitted for further management of pericardial effusion associated with SLE. hospital course: patient was admitted for acute recurrent pericarditis and pericardial effusion due to flare of unspecified connective tissue disorder. she was treated with iv solumedrol 60mg daily. symptoms improved. echo showed normal EF, could not differentiate pericardial fat vs small effusion, otherwise trace to small effusion (smaller than estimated on CT). C3, C4, double-stranded DNA were drawn and are pending. Was continued on colchicine and Plaquenil. Patient will be discharged on prednisone 40 mg daily and will follow up with Rheumatology at [facility]. For hyperlipidemia she was continued on statin. Patient is feeling better will be discharged home. Time Attestation Discharge Coordination Time (in mins): 35 Quality: Safe Use of Opioids Does Pt have an Active Cancer Diagnosis on the Problem List?: No Quality: Stroke Does the patient have a stroke diagnosis?: No Physical Exam Vital Signs: Vital Signs: Last Vital Signs Temp 96.8 F 08/14/23 07:55 Pulse 89 08/14/23 07:55 Resp 18 08/14/23 07:55 BP 116/75 08/14/23 07:55 Pulse Ox 99 08/14/23 07:55 O2 Del Method Room Air 08/14/23 07:55 BMI result Body Mass Index 29.2 Const: General: cooperative, comfortable, no acute distress, alert and awake Nutritional Appearance: overweight Orientation/consciousness: patient oriented x3 HEENT: Head: Yes normocephalic and Yes atraumatic Neck: Neck: Yes trachea midline, Yes supple and Yes no JVD Resp: Effort & Inspection: normal respiratory effort Auscultation: clear to auscultation bilaterally Cardio: Jugular venous distension: no JVD Palpation: normal PMI Rate: regular rate Rhythm: regular rhythm Heart sounds: S1 normal heart sound present, S2 normal heart sound present, no click, no gallops, no murmurs and no rubs GI: Auscultation: normal bowel sounds Skin: General skin exam: no rashes or lesions noted Neuro: General: patient oriented x3 and no focal motor deficits Extrem: General: Yes no clubbing, cyanosis or edema Discharge Plan Discharge Anticipated Discharge Date/Time: 08/14/23 09:24 Patient Disposition: Home, Self-Care Discharge Diagnosis: acute recurrent autoimmune pericarditis Referrals: Regina Paz MD [Primary Care Provider] - 1 Week Discharge Medications: New prednisone 20 mg tablet 40 mg PO DAILY Qty: 20 0RF Continued hydroxychloroquine 200 mg tablet 300 mg PO DAILY Qty: 135 3RF omeprazole 40 mg capsule,delayed release(DR/EC) 40 mg PO Q72H dicyclomine 20 mg tablet 20 mg PO BID PRN (Reason: SPASMS) zolmitriptan 5 mg tablet 5 mg PO DAILY PRN (Reason: migraine) rosuvastatin 10 mg tablet 10 mg PO BEDTIME zolmitriptan [Zomig] 5 mg spray,non-aerosol 1 spray intranasal DAILY PRN (Reason: Migraine Headache) triamcinolone acetonide [Nasacort Allergy] 55 mcg Aerosol,[place] 1 spray INTRANASAL DAILY Rx Instructions: administer into each nostril cyclosporine [Restasis] 0.05 % Dropperette 1 drp OPHTHALMIC (EYE) Q12H acyclovir 400 mg tablet 400 mg PO BID cyclobenzaprine 10 mg tablet 10 mg PO BID ondansetron HCl 4 mg tablet 4 mg PO DAILY PRN (Reason: Nausea) rosuvastatin 5 mg tablet 5 mg PO DAILY lorazepam 0.5 mg tablet 0.5 mg PO DAILY PRN (Reason: anxiety) colchicine 0.6 mg tablet 0.6 mg PO BID metoclopramide HCl 10 mg tablet 10 mg PO TID Qty: 270 1RF Discontinued prednisone 1 mg Tablet 6 mg PO DAILY Discharge Orders: Discharge Order (Routine); Ordered 08/14/23 Ordered By: Elieser Pollard Diet: Advance to usual diet Activity on Discharge: As tolerated Stand Alone Forms: Patient Portal Discharge page Care Plan Goals: manage pericarditis Health Concerns: pericarditis, unspecified connective tissue disorder Plan of Treatment: prednisone 40mg daily for now, follow up with rheumatology - Dr. Brito at [facility] on 08/21/23 Assessment: see above
[2023-08-14] MEDS: Acetaminophen 325 MG TABLET 650 MG PO (09:50)
[2023-08-14] MEDS: Butalb/Acetamin/Caff 50/325/40 TABLET 1 TAB PO (09:50)
--- NOTE | 2023-08-14 10:15 | MHC.CM.PN ---
Pt is medically cleared for D/C home self-care, and has arranged her own transportation.
[2023-08-14 10:49] LABS: Complement C3 181 mg/dL (83-193)
[2023-08-14 20:54] LABS: Anti DNA DS Antibody <1 IU/mL
== END 2023-08-14 10:50 | disposition home or self-care (01) | DRG 346 ==
LOC: HO.ED 17:31 → HO.EDOVER 21:22 → HO.IMC 23:34
PROVIDERS: Nurse Practitioner Family; Admitting Provider Physician Assistant; Emergency Provider Internal Medicine; PCP Internal Medicine; Visit Provider Internal Medicine
DX: M32.12 Pericarditis in systemic lupus erythematosus (principal); D36.10 Benign neoplasm of peripheral nerves and autonomic nervous system, unspecified; J98.11 Atelectasis; G43.D0 Abdominal migraine, not intractable; E78.5 Hyperlipidemia, unspecified; E78.00 Pure hypercholesterolemia, unspecified; Z20.822 Contact with and (suspected) exposure to COVID-19; Z79.899 Other long term (current) drug therapy
CPT/HCPCS: 0241U; 36415; 71250; 74176; 80048; 80053; 81001; 84484; 85025; 85652; 86140; 86160; 86225; 93005; 93306; 99285; J1885; J2405; J2930

== ENCOUNTER 2023-08-11 20:41 | Outpatient (BNV) | payer OTHER, SELFPAY | END 2023-08-13 07:00 | PROVIDERS: Admitting Provider Physician Assistant; Emergency Provider Internal Medicine; PCP Internal Medicine; Visit Provider Internal Medicine | DX: I36.1 Nonrheumatic tricuspid (valve) insufficiency (principal); I31.39 Other pericardial effusion (noninflammatory) | CPT/HCPCS: 93306 ==

== ENCOUNTER → 2023-08-11 20:41 | Outpatient (BNV) | payer OTHER, SELFPAY | PROVIDERS: Admitting Provider Physician Assistant; Emergency Provider Internal Medicine; PCP Internal Medicine; Visit Provider Physician Assistant | DX: M32.12 Pericarditis in systemic lupus erythematosus (principal) | CPT/HCPCS: 99223; 99232; 99233; 99239 ==

== ENCOUNTER → 2023-08-11 20:41 | Outpatient (BNV) | payer OTHER, SELFPAY | PROVIDERS: Admitting Provider Physician Assistant; Emergency Provider Internal Medicine; PCP Internal Medicine; Visit Provider Internal Medicine Cardiovascular Disease | DX: I31.39 Other pericardial effusion (noninflammatory) (principal); R94.31 Abnormal electrocardiogram [ECG] [EKG] | CPT/HCPCS: 93010; 99222 ==

== ENCOUNTER 2023-10-12 06:24 | Emergency (ER) | payer OTHER, SELFPAY ==
--- NOTE | 2023-10-12 | ECG_ITS ---
Test Reason : CHEST PAIN Blood Pressure : / mmHG Vent. Rate : 112 BPM Atrial Rate : 112 BPM P-R Int : 122 ms QRS Dur : 088 ms QT Int : 326 ms P-R-T Axes : 021 -17 045 degrees QTc Int : 444 ms Sinus tachycardia Inferior infarct (cited on or before 11-AUG-2023) Abnormal ECG When compared with ECG of 11-AUG-2023 14:55, No significant change was found Referred By: Generic ED Physician Electronically Signed By:JAMI NORIEGA MD
--- NOTE | ~2023-10-12 | CT_ITS ---
EXAMINATION: CT ANGIOGRAM OF THE CHEST WITH CONTRAST (CT PULMONARY ANGIOGRAM FOR PE) CT ABDOMEN AND PELVIS WITHOUT IV CONTRAST CLINICAL INFORMATION: Chest pain, SOB, tachycardia, hx pericard effusion. Diarrhea and abdominal pain. COMPARISON: 08/11/2023. TECHNIQUE: Chest - Prior to contrast administration, noncontrast localization images were obtained. Subsequently, multidetector volumetric imaging was performed from the thoracic inlet to below the diaphragms following the administration of 65 mL Omnipaque 350 intravenous contrast. No contrast reaction reported. Abdomen and Pelvis - Multidetector CT imaging examination of the abdomen pelvis performed without use of oral or intravenous contrast. The axial images and multiplanar reformatted images are reviewed. Sagittal, coronal, and MIP oblique sagittal reformatted images were obtained on the CT workstation, uploaded to PACS, and reviewed. This CT examination was performed using dose optimization techniques as appropriate, variously including the following: *Automated exposure control *Adjustment of mA and/or kV according to patient size (this includes techniques or standardized protocols for targeted exams where dose is matched to indication/reason for exam; i.e. extremities or head) *Use of iterative reconstruction technique DLP: Total exam dose-length product 910 mGy-cm FINDINGS: CHEST - LUNGS AND PLEURA: Mild centrilobular and paraseptal emphysema. 0.3 cm calcified granuloma of posterior left lower lobe. No interval development of any suspicious lung nodule, mass or consolidation. No pleural effusion or pneumothorax. Mild atelectasis in dependent aspect of each lower lobe. QUALITY OF STUDY/CONTRAST BOLUS: Satisfactory. PULMONARY ARTERIES: The pulmonary arteries are normal in size. No embolic filling defects within the main, lobar or segmental vessels. OTHER CARDIOVASCULAR: Cardiac chambers are normal in size. Thoracic aorta has normal caliber and contour; no aneurysm or dissection. Persistent small pericardial effusion is slightly decreased compared to 08/11/2023. MEDIASTINUM/LOWER NECK: The esophagus is unremarkable. There appears to be a hypodense nodule of at least 1.5 cm size in the left thyroid lobe. The left thyroid enlargement was noted on the exam of 08/11/2023. Thyroid ultrasound follow-up is recommended. LYMPHATICS: No pathologic sized axillary, hilar or mediastinal lymph nodes. OSSEOUS STRUCTURES: No acute or suspicious osseous abnormality. ABDOMEN/PELVIS - HEPATOBILIARY: Again noted are several simple cysts within the liver. No acute hepatic abnormality. Status post cholecystectomy. No intrahepatic or extrahepatic ductal dilatation. PANCREAS: Normal. No edema, pancreatic ductal dilatation or mass. SPLEEN: Normal. ADRENAL GLANDS: Normal. KIDNEYS AND URETERS: Kidneys are normal in size. 0.3 cm calyceal stone of the posterior interpolar region of the right kidney. No ureteral stones, hydroureter or hydronephrosis. BLADDER: Normal. No calculi or wall thickening. BOWEL AND PERITONEUM: Stomach is unremarkable. No dilated loops of bowel. The appendix is normal. The colon is underdistended and the thickness of the colonic wall appears to be commensurate with the degree of lack of distention. No focal bowel wall thickening or mesenteric fat stranding. No free fluid or pneumoperitoneum. ABDOMINAL WALL: Unremarkable. VASCULATURE: Unremarkable. LYMPH NODES: No pathologic sized lymph nodes in the abdomen or pelvis. No inguinal lymphadenopathy. PELVIC VISCERA: Several small calcifications of the uterus are likely due to presence of leiomyomas. 1.5 cm cyst of the right ovary has a simple appearance and is unchanged compared to MRI from 11/17/2022. No pelvic imaging follow-up recommended. No pelvic free fluid. MUSCULOSKELETAL: No acute or suspicious osseous abnormality in the pelvis or lumbar spine. Tarlov cysts of the sacrum. CT/CT abdomen pelvis wo IV con IMPRESSION: * No evidence of pulmonary embolism, pneumonia or pleural effusion. * Persistent small pericardial effusion. * No acute imaging abnormalities in the abdomen or pelvis. * Small, 0.3 cm stone of the right kidney. No ureteral calculi or hydroureteronephrosis. * There appears to be a hypodense nodule of at least 1.5 cm size in the left thyroid lobe. Thyroid ultrasound follow-up is recommended.
[2023-10-12 06:33] VITALS: BP 158/92; PULSE 98; RESP 20; TEMP 36.2; O2SAT 95; BMI 32.1
[2023-10-12 06:52] LABS: Basophils Absolute Auto 0.1 X10*3/uL (0.0-0.2); Basophils Percent Auto 0.3 % (0-2); Eosinophils Absolute Auto 0.1 X10*3/uL (0.0-0.4); Eosinophils Percent Auto 0.5 % (0-4); Hematocrit 46.8 % (37.0-47.0); Hemoglobin 16.4 g/dl (12.0-16.0); Imm Gran Abs Auto 0.09 X10*3/uL (0.00-0.03); Imm Gran Pct Auto 0.5 % (0.0-0.4); Lymphocytes Absolute Auto 1.3 X10*3/uL (1.2-4.9); Lymphocytes Percent Auto 7.5 % (20-40); MANUAL DIFF FLAG SCAN; Mean Corpuscular Hemoglobin 31.4 pg (27.0-33.0); Mean Corpuscular Volume 89.7 fL (80.0-98.0); Mean Platelet Volume 10.2 fL (9.4-12.3); Monocytes Absolute Auto 1.7 X10*3/uL (0.1-1.2); Monocytes Percent Auto 9.4 % (2-11); Neutrophils Absolute Auto 14.3 x10*3/uL (2.0-8.3); Neutrophils Percent Auto 81.8 % (45-73); Platelet Count 255 X10*3/uL (160-400); Red Blood Count 5.22 X10*6/uL (4.20-5.50); Red Cell Distribution Width 14.3 % (11.0-16.0); SCAN SMEAR FLAG 1; White Blood Count 17.5 X10*3/uL (4.8-10.8)
[2023-10-12 07:07] LABS: Alanine Aminotransferase 64 U/L (0-31); Albumin Level 4.2 g/dL (3.5-5.0); Alkaline Phosphatase 73 U/L (39-117); Anion Gap 15 (12-20); Aspartate Amino Transferase 36 U/L (5-31); Bilirubin Total 0.4 mg/dL (0.0-1.0); Blood Urea Nitrogen 11 mg/dL (9-16); Calcium 9.4 mg/dL (8.4-10.2); Carbon Dioxide 23 mmol/L (22-29); Chloride 107 mmol/L (96-108); Creatinine Clr Calc Pharmacy 63.8; Estimated Glomerular Filt Rate > 60; Glucose Random 124 mg/dL (60-115); Potassium 4.1 mmol/L (3.3-5.1); Sodium 141 mmol/L (135-145); Total Protein 7.2 g/dL (6.5-8.0)
[2023-10-12 07:14] LABS: Troponin-I High Sensitivity < 2.7 ng/L (<3.5-17.0)
[2023-10-12 07:16] VITALS: BP 139/85; PULSE 115; RESP 25; TEMP 36.9; O2SAT 96
[2023-10-12 07:23] LABS: SLIDE REVIEW VERIFIED
--- NOTE | 2023-10-12 07:36 | ED.CHESTPAIN ---
HPI - Chest Pain General Chief Complaint: Chest Pain Stated Complaint: Chest pain/SOB Time Seen by Provider: 10/12/23 06:37 Source: patient Mode of arrival: ambulatory Limitations: no limitations History of Present Illness HPI narrative: Patient is a 58-year-old female with past medical history of multinodular thyroid, ileitis, hyperlipidemia, SLE, inflammatory arthritis, cervical radiculopathy, migraines, pericardial effusion who presents emergency department for evaluation of multiple complaints including chest pain described as a heaviness/pressure ?like someone has their foot on my chest? that began yesterday night, feeling as though she can not catch a deep breath particularly on exertion, headaches, nausea, diffuse abdominal pain, arthralgias to the bilateral hips and shoulders. She and her reports similar symptoms in the past when she has tried to taper off of steroids and has developed pericardial effusion. She reports in July of 2023 this happened. States she has been on prednisone for approximately 1 year for treatment of her lupus, develop giancarlo syndrome and has tried to taper off. She reports that 5 days ago 10/08/2023 she took her last dose of prednisone 5 mg, she had been on this tapered dose for approximately 1 week. She was recently started on naltrexone 25 mg daily on 10/02/2023 to combat her Giancarlo syndrome symptoms. She follows with rheumatology at [facility] Dr. Melgoza Related Data Home Medications ?Medication ?Instructions ?Recorded ?Confirmed acyclovir 400 mg tablet 400 mg PO BID 06/27/22 08/12/23 cyclobenzaprine 10 mg tablet 10 mg PO BID 06/27/22 08/12/23 ondansetron HCl 4 mg tablet 4 mg PO DAILY PRN Nausea 06/27/22 08/12/23 zolmitriptan 5 mg nasal spray 1 spray intranasal DAILY PRN 09/24/22 08/12/23 (Zomig) Migraine Headache cyclosporine 0.05 % eye drops in a 1 drp ophthalmic (eye) Q12H 09/25/22 08/12/23 dropperette (Restasis) triamcinolone acetonide 55 mcg 1 spray intranasal DAILY 09/25/22 08/12/23 nasal spray aerosol (Nasacort Allergy) lorazepam 0.5 mg tablet 0.5 mg PO DAILY PRN anxiety 01/11/23 08/12/23 rosuvastatin 5 mg tablet 5 mg PO DAILY 05/11/23 08/12/23 colchicine 0.6 mg tablet 0.6 mg PO BID 05/22/23 08/12/23 dicyclomine 20 mg tablet 20 mg PO BID PRN SPASMS 08/12/23 08/12/23 omeprazole 40 mg capsule,delayed 40 mg PO Q72H 08/12/23 08/12/23 release rosuvastatin 10 mg tablet 10 mg PO BEDTIME 08/12/23 08/12/23 zolmitriptan 5 mg tablet 5 mg PO DAILY PRN migraine 08/12/23 08/12/23 Previous Rx's ?Medication ?Instructions ?Recorded hydroxychloroquine 200 mg tablet 300 mg (1.5 x 200 mg) PO DAILY 05/16/23 #135 tabs metoclopramide HCl 10 mg tablet 10 mg PO TID #270 tabs 06/12/23 prednisone 20 mg tablet 40 mg (2 x 20 mg) PO DAILY #20 tabs 08/14/23 Allergies Allergy/AdvReac Type Severity Reaction Status Date / Time pollen extracts Allergy Intermediate Runny Nose Verified 10/12/23 06:36 atorvastatin Allergy Mild muscle pain Verified 10/12/23 06:36 blue dye Allergy Mild Unknown Verified 10/12/23 06:36 iodine Allergy Mild Itching Verified 10/12/23 06:36 red dye Allergy Mild Unknown Verified 10/12/23 06:36 tree and shrub pollen Allergy Mild Nasal Verified 10/12/23 06:36 congestion erythromycin base Allergy Nausea and Verified 10/12/23 06:36 Vomiting azathioprine AdvReac Severe vomiting Verified 10/12/23 06:36 and diarrhea stevioside [From Stevia] AdvReac Abdominal Verified 10/12/23 06:36 Pain green dye Allergy Severe Headache Uncoded 10/12/23 06:36 molds and smuts Allergy Severe hadache Uncoded 06/12/23 08:08 Review of Systems Review of Systems: Yes all other systems are reviewed and are negative PMFSH Past Medical History Attestation statement: The following information was validated with the patient. Source: old records reviewed Medical History Pericardial effusion Esophageal candidiasis Ileitis Abdominal pain Inflammation of small intestine History of anesthesia complications Hx of chest pain Fusion of spine, cervical region TMJ syndrome Hx of gastritis Cervical radiculopathy Elevated cholesterol Osteoarthritis Hx of migraine headaches Multinodular thyroid Surgical History Hx of shoulder surgery S/P thyroid biopsy H/O colonoscopy History of esophagogastroduodenoscopy (EGD) History of spinal fusion Hx of dilation and curettage Hx of cholecystectomy Hx of tonsillectomy Hx of tubal ligation Family History Family History Mother Diabetes Uterine cancer Hypertension Father Diabetes Hypertension Stroke Family/Other Colon cancer Social History Social History Household Members: Spouse Housing: House Are you a primary senior care manager to a significant other at home: No Do you presently have visiting nurse or other home services: No Alcohol intake: never Patient Tobacco Use Status: Former Tobacco user Quit Date: 1990 Tobacco use type: Cigarette Cigarettes Per Day: 10 Years Smoked: 5 Smoked in Last 30 Days: No Use of substances other than those prescribed or required for medical reasons: Yes Substance Use Type: Marijuana Substance Use Frequency: Weekly Advance Directives: No Advance Directives Information Provided: Yes Do you have a plan to hurt others: No Plan service: No Current occupational status: employed Current occupation: right hand dominant Physical Exam Vital Signs: Vital Signs: Last Vital Signs Temp 98.2 F 10/12/23 12:09 Pulse 99 10/12/23 12:09 Resp 18 10/12/23 12:09 BP 149/91 H 10/12/23 12:09 Pulse Ox 95 10/12/23 12:09 O2 Del Method Room Air 10/12/23 12:09 BMI result Body Mass Index 32.1 Appearance: Alert.?Oriented to person, place and time. No acute distress.?Normal affect. Eyes: Pupils equal, round and reactive to light.? ENT: Pharynx normal.?? Neck: Normal inspection.? Neck supple.?? CVS: Heart sounds normal. Normal heart rate and rhythm.? Pulses normal.?? Respiratory: No respiratory distress.? Lung sounds clear to auscultation bilaterally?? Abdomen: Soft and non-tender. Normoactive bowel sounds. ?? Skin: Skin warm and dry.? Normal skin color.? ? Extremities: No lower extremity edema.? No calf ttp? Neuro: Moves all extremities spontaneously. Sensation intact bilaterally. Ambulates with normal steady gait. Course Reevaluation(s) Reevaluation #1: CT of the chest is without evidence of pulmonary embolism, no pleural effusions or pneumonia. There is a persistent small pericardial effusion, which is actually slightly decreased when compared to prior CT in July of 2023, in addition there is a left thyroid nodule 1.5 cm, nodule seen on prior CT imaging as well, no acute intra-abdominal pathology. These findings were discussed with patient. She does not have any signs of cardiac tamponade. 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 She also is requesting a new rheumatology consult in the ED, I did advise her that we do not have rheumatology coverage from the emergency department here. I have asked the physician office secretary to place a call to her green marketing specialist. Time: 10:31 Reevaluation #2: I spoke with Dr. Melgoza, reviewed HPI lab findings from today's visit. She reports that she does not feel as though this is autoimmune in nature, and states that they have not yet diagnosed in autoimmune disease. She recommended restarting Plaquenil if she has not currently taking it, and having follow-up with Cardiology/gastroenterology for her symptoms. She is requesting a dosage increase of colchicine. Patient advised that recommended max dose is 0.6 twice daily which she is currently taking. She is currently taking Plaquenil 200 mg as well. She is requesting cardiology consultation, consulted with Cardiology, Dr. Rhodes to inquire whether there would be any recommendations for repeat echocardiogram at this time or any further intervention, he does not advise for repeat ECHO or further intervention at this time. Time: 11:07 Medications Administered Discontinued Medications Generic Name Dose Route Start Last Admin Trade Name Freq PRN Reason Stop Dose Admin Acetaminophen 975 mg 10/12/23 09:18 10/12/23 09:25 Acetaminophen 325 Mg Tablet PO 10/12/23 09:19 975 mg ONCE ONE Administration Dicyclomine HCl 10 mg 10/12/23 10:50 10/12/23 11:07 Dicyclomine Hcl 10 Mg Capsule PO 10/12/23 10:51 10 mg ONCE ONE Administration Sodium Chloride 1,000 mls @ 999 mls/hr 10/12/23 08:00 10/12/23 10:25 Ns IV 10/12/23 09:00 Infused .Q1H1M CHAMP Infusion Iohexol 100 ml 10/12/23 08:30 10/12/23 08:31 Iohexol 350 Mg/Ml 100 Ml Infus..Btl IV 10/12/23 08:31 65 ml ONCE ONE Administration Ondansetron HCl 4 mg 10/12/23 07:51 10/12/23 08:13 Ondansetron Hcl 4 Mg/2 Ml Vial IVPUSH 10/12/23 07:52 4 mg ONCE ONE Administration Medical Decision Making Medical Decision Making [facility] Narrative: Patient is a 58-year-old female with past medical history of multinodular thyroid, ileitis, hyperlipidemia, SLE, inflammatory arthritis, cervical radiculopathy, migraines, pericardial effusion presenting to the emergency department for evaluation of chest pain/heaviness, shortness of breath, diffuse abdominal pain as per HPI. She reports history of similar symptoms with prednisone tapering in the past and resultant pericardial effusions and pericarditis. She arrived hypertensive, no tachypnea hypoxia or fever. Declines interest in pain medication at this time. CT angio PE protocol, CT abdomen pelvis ordered, 1 L normal saline. Differential Diagnosis Differential Diagnoses: The differential diagnosis associated with the presentation includes (Pleural effusion, pericardial effusion, pericarditis, pleurisy, lupus flare, myocardial infarction/ ischemia, pulmonary embolism, colitis) Admission/Observation Consideration of admission/observation: Escalation of care including admission/observation considered (See narrative above in course narrative for further detail) Lab Data [facility] Lab Attestation statement: I reviewed the patient's lab results. CBC reveals a leukocytosis 50737, no anemia or thrombocytopenia. ESR/CRP 14/7.82. No electrolyte derangement. No BRIANA. Mildly elevated AST/ALT. High sensitive troponin below detectable limits. COVID-19/influenza/RSV negative 10/12/23 06:38 10/12/23 06:38 Labs: Lab Results 10/12/23 10/12/23 Range/Units 06:38 07:27 WBC 17.5 H (4.8-10.8) X10*3/uL RBC 5.22 (4.20-5.50) X10*6/uL Hgb 16.4 H (12.0-16.0) g/dl Hct 46.8 (37.0-47.0) % MCV 89.7 (80.0-98.0) fL MCH 31.4 (27.0-33.0) pg MCHC 35.0 (31.0-35.0) g/dl RDW 14.3 (11.0-16.0) % Plt Count 255 (160-400) X10*3/uL MPV 10.2 (9.4-12.3) fL Immature Gran % (Auto) 0.5 H (0.0-0.4) % Neut % (Auto) 81.8 H (45-73) % Lymph % (Auto) 7.5 L (20-40) % [place] % (Auto) 9.4 (2-11) % Eos % (Auto) 0.5 (0-4) % Baso % (Auto) 0.3 (0-2) % Lymph # (Auto) 1.3 (1.2-4.9) X10*3/uL [place] # (Auto) 1.7 H (0.1-1.2) X10*3/uL Eos # (Auto) 0.1 (0.0-0.4) X10*3/uL Baso # (Auto) 0.1 (0.0-0.2) X10*3/uL Abs Immat Gran (auto) 0.09 H (0.00-0.03) X10*3/uL Absolute Neuts (auto) 14.3 H (2.0-8.3) x10*3/uL Absolute Nucleated RBC 0.000 (0.0-0.012) X10*3/uL Nucleated RBC % (auto) 0.0 (0.0-0.2) /100WBC Smear Tech's Comments VERIFIED ESR 14 (0-20) MM/HR Hold Blue Top SEE NOTE Sodium 141 (135-145) mmol/L Potassium 4.1 (3.3-5.1) mmol/L Chloride 107 (96-108) mmol/L Carbon Dioxide 23 (22-29) mmol/L Anion Gap 15 (12-20) BUN 11 (9-16) mg/dL Creatinine 0.88 (0.5-1.4) mg/dL Estim Creat Clear Calc 63.8 Estimated GFR > 60 Random Glucose 124 H (60-115) mg/dL Calcium 9.4 (8.4-10.2) mg/dL Total Bilirubin 0.4 (0.0-1.0) mg/dL AST 36 H (5-31) U/L ALT 64 H (0-31) U/L Alkaline Phosphatase 73 (39-117) U/L Troponin I High Sens < 2.7 (<3.5-17.0) ng/L C-Reactive Protein 7.82 H (< or = 0.50) mg/dL Total Protein 7.2 (6.5-8.0) g/dL Albumin 4.2 (3.5-5.0) g/dL Influenza Type A (PCR) NEGATIVE (Negative) Influenza Type B (PCR) NEGATIVE (Negative) RSV RNA Qual (PCR) NEGATIVE (Negative) SARS-CoV-2 RNA (RT-PCR) NEGATIVE (Negative) Independent Interpretation I performed an independent interpretation of an: EKG and CT Scan (No evidence of PE or pneumonia) Interpretation: Rate:112 Rhythm:? Sinus tachycardia Normal P waves.? Normal LEIDA.? No [place] depression? Normal QRS complex.?? ST T wave :??No ST elevation, no ST depression qTC:444 prior studies:? July 2023/March 2023 The study has been interpreted contemporaneously by me. Radiology Impression Discussion of test interpretation with radiology: I have reviewed the radiologist's reading. Radiologist Impression: CT/CT angio chest PE protocol IMPRESSION: * No evidence of pulmonary embolism, pneumonia or pleural effusion. * Persistent small pericardial effusion. * No acute imaging abnormalities in the abdomen or pelvis. * Small, 0.3 cm stone of the right kidney. No ureteral calculi or hydroureteronephrosis. * There appears to be a hypodense nodule of at least 1.5 cm size in the left thyroid lobe. Thyroid ultrasound follow-up is recommended. Critical Care Time Critical Care Time Critical Care Time: Yes Total Critical Care Time: 60 Attestation: I personally attest to this critical care time spent taking care of the patient exclusive of all other billable procedures was approximately 60 minutes including initial evaluation of patient, ordering tests,CT interpretation, EKG interpretation, multiple medical consultation, documentation, re-evaluation. Discharge Plan Discharge Clinical Impression: Chest pain, Pericardial effusion Patient Disposition: Home, Self-Care Additional Instructions: Please continue taking your medications as prescribed. Maximum recommended dosage of colchicine 0.6 mg twice daily which you are currently prescribed. Your green marketing specialist Dr. Melgoza consulted at your request, at this time she does not recommend any treatment changes, if you are already taking your Plaquenil 200 mg, she does not feel as though prednisone would be warranted, and as discussed you are not interested in taking prednisone at this time as you have recently been tapering off. Cardiology was consulted, Dr. Rhodes, at this time there is not indication for emergent intervention, the pericardial effusion seen on CT scan today is decreased when compared to your prior visit in July of 2023. At this time there is not indication to have a repeat echocardiogram. I recommend that you contact your primary care doctor as well as your specialists and have close follow-up. Prescriptions: No Action hydroxychloroquine 200 mg tablet 300 mg PO DAILY Qty: 135 3RF omeprazole 40 mg capsule,delayed release(DR/EC) 40 mg PO Q72H dicyclomine 20 mg tablet 20 mg PO BID PRN (Reason: SPASMS) zolmitriptan 5 mg tablet 5 mg PO DAILY PRN (Reason: migraine) rosuvastatin 10 mg tablet 10 mg PO BEDTIME prednisone 20 mg tablet 40 mg PO DAILY Qty: 20 0RF zolmitriptan [Zomig] 5 mg spray,non-aerosol 1 spray intranasal DAILY PRN (Reason: Migraine Headache) triamcinolone acetonide [Nasacort Allergy] 55 mcg Aerosol,[place] 1 spray INTRANASAL DAILY Rx Instructions: administer into each nostril cyclosporine [Restasis] 0.05 % Dropperette 1 drp OPHTHALMIC (EYE) Q12H acyclovir 400 mg tablet 400 mg PO BID cyclobenzaprine 10 mg tablet 10 mg PO BID ondansetron HCl 4 mg tablet 4 mg PO DAILY PRN (Reason: Nausea) rosuvastatin 5 mg tablet 5 mg PO DAILY lorazepam 0.5 mg tablet 0.5 mg PO DAILY PRN (Reason: anxiety) colchicine 0.6 mg tablet 0.6 mg PO BID metoclopramide HCl 10 mg tablet 10 mg PO TID Qty: 270 1RF Referrals: Regina Paz MD [Primary Care Provider] - Interventions: ED Discharge Assessment Last Done: 10/12/23 12:09 Discharge Date/Time: 10/12/23 12:09 Print Language: [place]
[2023-10-12 07:56] LABS: C Reactive Protein 7.82 mg/dL (< or = 0.50)
[2023-10-12] MEDS: 0.9 % Sodium Chloride 1,000 ML 999 ML IV (08:13)
[2023-10-12] MEDS: ondansetron HCL 4 MG/2 ML VIAL IVPUSH (08:13)
[2023-10-12 08:17] LABS: Erythrocyte Sedimentation Rate 14 MM/HR (0-20)
[2023-10-12 08:20] LABS: Influenza A PCR NEGATIVE (Negative); Influenza B PCR NEGATIVE (Negative); Resp Syncy Virus RNA Qual PCR NEGATIVE (Negative); SARS COV2 PCR INHOUSE NEGATIVE (Negative)
[2023-10-12] MEDS: iohexoL 350 MG/ML 100 ML INFUS..BTL IV (08:31)
[2023-10-12] MEDS: Acetaminophen 325 MG TABLET 975 MG PO (09:25)
[2023-10-12 10:23] VITALS: BP 143/86; PULSE 104; RESP 17; TEMP 37.3; O2SAT 96
[2023-10-12] MEDS: Dicyclomine HCl 10 MG CAPSULE PO (11:07)
[2023-10-12 12:09] VITALS: BP 149/91; PULSE 99; RESP 18; TEMP 36.8; O2SAT 95
== END 2023-10-12 12:09 | disposition home or self-care (01) ==
PROVIDERS: Nurse Practitioner Family; Emergency Provider Emergency Medicine; PCP Internal Medicine
DX: R07.9 Chest pain, unspecified (principal); I31.39 Other pericardial effusion (noninflammatory); M32.9 Systemic lupus erythematosus, unspecified; R00.0 Tachycardia, unspecified; R06.00 Dyspnea, unspecified; R51.9 Headache, unspecified; R11.0 Nausea; R10.9 Unspecified abdominal pain; M25.512 Pain in left shoulder; M25.511 Pain in right shoulder; M25.552 Pain in left hip; M25.551 Pain in right hip; E04.1 Nontoxic single thyroid nodule; Z79.899 Other long term (current) drug therapy; Z03.818 Encounter for observation for suspected exposure to other biological agents ruled out
CPT/HCPCS: 0241U; 36415; 71275; 74176; 80053; 84484; 85025; 85652; 86140; 93005; 96361; 96374; 99285; J2405; Q9967

== ENCOUNTER → 2023-10-12 06:26 | Outpatient (BNV) | payer OTHER, SELFPAY | PROVIDERS: Emergency Provider Emergency Medicine; PCP Internal Medicine; Visit Provider Internal Medicine Cardiovascular Disease | DX: R00.0 Tachycardia, unspecified (principal) | CPT/HCPCS: 93010 ==

== ENCOUNTER 2023-11-13 14:40 | Outpatient (REF) | payer OTHER, SELFPAY ==
[2023-11-13 17:23] LABS: Hemoglobin 14.2 g/dl (12.0-16.0); Mean Corpuscular HGB Conc 33.8 g/dl (31.0-35.0); Mean Corpuscular Hemoglobin 29.9 pg (27.0-33.0); Mean Corpuscular Volume 88.4 fL (80.0-98.0); Mean Platelet Volume 11.1 fL (9.4-12.3); Platelet Count 433 X10*3/uL (160-400); Red Blood Count 4.75 X10*6/uL (4.20-5.50)
[2023-11-13 18:29] LABS: Alanine Aminotransferase 36 U/L (0-31); Albumin Level 3.9 g/dL (3.5-5.0); Alkaline Phosphatase 146 U/L (39-117); Anion Gap 18 (12-20); Aspartate Amino Transferase 19 U/L (5-31); Bilirubin Total 0.4 mg/dL (0.0-1.0); Blood Urea Nitrogen 12 mg/dL (9-16); C Reactive Protein 32.37 mg/dL (< or = 0.50); Carbon Dioxide 23 mmol/L (22-29); Chloride 106 mmol/L (96-108); Estimated Glomerular Filt Rate 54; Glucose Random 104 mg/dL (60-115); Potassium 3.5 mmol/L (3.3-5.1); Sodium 143 mmol/L (135-145); Total Protein 8.2 g/dL (6.5-8.0)
[2023-11-13 18:42] LABS: White Blood Count 30.3 X10*3/uL (4.8-10.8)
[2023-11-13 18:43] LABS: Erythrocyte Sedimentation Rate 74 MM/HR (0-20)
[2023-11-13 18:44] LABS: Ferritin 369 ng/mL (10-250)
[2023-11-13 18:46] LABS: Band Neutrophils Percent 5 % (3-5); Eosinophils Absolute Manual 0.3 X10*3/uL (0.0-0.4); Eosinophils Percent Manual 1 % (0-4); Lymphocytes Absolute Manual 1.5 X10*3/uL (1.2-4.9); Lymphocytes Percent Manual 5 % (20-40); Monocytes Absolute Manual 3.3 X10*3/uL (0.1-1.2); Monocytes Percent Manual 11 % (2-11); Neutrophils Absolute Manual 25.1 X10*3/uL (2.0-8.3); Neutrophils Percent Manual 78 % (45-73); Platelet Estimate NORMAL (NORMAL); Platelet Morphology Comment NORMAL; RBC Morphology NORMAL
[2023-11-14 04:15] LABS: HBS Num1 > 1000.00 mIU/mL (0-7.99); HBc Num1 0.38 S/CO (0.00-0.79); HBsAGNum1 0.26 S/CO (0.00-0.99); Hepatitis A Antibody IgM 0.19 Index (0-0.79); Hepatitis B Core Antibody Nonreactive (Nonreactive); Hepatitis B Surface Antigen Negative (Negative); ~HepC Num1 0.13 S/CO (0.00-0.79); ~Hepatitis A Antibody IgM Nonreactive (Nonreactive); ~Hepatitis B Surface Antibody REACTIVE (Nonreactive); ~Hepatitis C Antibody Nonreactive (Nonreactive)
[2023-11-15 07:44] LABS: Cardiolipin IgG Ab <2.0 GPL-U/mL; Cardiolipin IgM Ab <2.0 MPL-U/mL
[2023-11-15 15:27] LABS: Cyclic Citrullinated Peptide <16 UNITS
[2023-11-16 07:43] LABS: TS Negative Control Passed; TS Panel A 1; TS Panel B 1; TS Positive Control Passed; TSpotTB Negative (Negative)
[2023-11-16 13:09] LABS: IgA 323 mg/dL (47-310); IgG 787 mg/dL (600-1640); IgM 88 mg/dL (50-300)
[2023-11-19 17:19] LABS: DRVVT Confirmation Negative (Negative)
[2023-11-19 21:38] LABS: Angiotensin Converting Enzyme 52 U/L (9-67)
[2023-11-19 22:12] LABS: Beta-2 Glycoprotein IgA <2.0 U/mL (<20.0); Beta-2 Glycoprotein IgG <2.0 U/mL (<20.0); Beta-2 Glycoprotein IgM 2.2 U/mL (<20.0)
[2023-11-19 22:23] LABS: Hexagonal Phase Neutralization Positive (Negative)
[2023-11-20 15:23] LABS: Prot Elec - Albumin 3.2 g/dL (3.8-4.8); Prot Elec - Alpha2 1.6 g/dL (0.5-0.9); Prot Elec - Beta 1 0.6 g/dL (0.4-0.6); Prot Elec - Beta 2 0.6 g/dL (0.2-0.5); Prot Elec - Gamma 0.7 g/dL (0.8-1.7); Prot Elec - Total Protein 7.6 g/dL (6.1-8.1)
[2023-11-21 14:27] LABS: PTT (LAC) Screen 59 sec (<=40)
[2023-11-27 16:48] LABS: Centromere Protein A Ab <11 SI (<11); Centromere Protein B Ab <11 SI (<11); Fibrillarin Ab <11 SI (<11); PM SCL 100 Ab <11 SI (<11); PM SCL 75 Ab <11 SI (<11); RNA Polymerase III RP11 Ab <11 SI (<11); RNA Polymerase III RP155 Ab <11 SI (<11); SCL-70 Extractable Nuclear Ab <11 SI (<11); Th-To Ab <11 SI (<11); U1 SNRNP RNP 70KD <11 SI (<11); U1 SNRNP RNP A <11 SI (<11); U1 SNRNP RNP C <11 SI (<11)
[2023-12-02 02:04] LABS: Cytosolic 5'nuc 1A Ab IgG <5 Units; Ej Ab <11 SI (<11); HMGCR Ab IgG <2 CU (<20); Jo-1 Ab <11 SI (<11); MDA5 Ab <11 SI (<11); Mi-2 alpha Ab <11 SI (<11); Mi-2 beta Ab <11 SI (<11); NXP-2 (MJ) Ab <11 SI (<11); Oj Ab <11 SI (<11); Pl-12 Ab <11 SI (<11); Pl-7 Ab <11 SI (<11); SRP Ab <11 SI (<11); TIF1 gamma Ab <11 SI (<11)
== END 2023-11-13 14:41 | disposition home or self-care (01) ==
LOC: HO.LAB 14:40
PROVIDERS: PCP Internal Medicine; Visit Provider Student in an Organized Health Care Education/Training Program
DX: Z11.59 Encounter for screening for other viral diseases (principal); Z11.7 Encounter for testing for latent tuberculosis infection; M32.9 Systemic lupus erythematosus, unspecified; I31.39 Other pericardial effusion (noninflammatory); D68.61 Antiphospholipid syndrome; M34.9 Systemic sclerosis, unspecified; I30.0 Acute nonspecific idiopathic pericarditis; Z72.89 Other problems related to lifestyle
CPT/HCPCS: 36415; 80053; 82164; 82550; 82728; 82784; 83516; 83520; 84165; 84182; 85007; 85025; 85027; 85597; 85598; 85613; 85652; 85670; 85730; 86140; 86146; 86147; 86200; 86235; 86334; 86481; 86704; 86706; 86709; 86803; 87340

== ENCOUNTER 2023-11-13 14:40 | Outpatient (AMB) | payer OTHER, SELFPAY ==
--- NOTE | 2023-11-13 14:50 | MHC.OFFVIS ---
Vital Signs 11/13/23 14:51 Height 5 ft 1 in Weight 164 lb 3.91 oz BMI 31.0 BP 137/82 Blood Pressure Location Lt brachial Position Sitting Pulse 105 H Pulse Source Pulse Oximeter Pulse Oximetry (%) 99 Oxygen Delivery Method Room Air Intake Visit Reasons: SLE Intake Note: Patient present today for SLE follow up visit. 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 Required: No Accompanied by: Spouse Allergies pollen extracts Allergy (Intermediate, Verified 11/13/23 14:59) Runny Nose atorvastatin Allergy (Mild, Verified 11/13/23 14:59) muscle pain blue dye Allergy (Mild, Verified 11/13/23 14:59) Unknown iodine Allergy (Mild, Verified 11/13/23 14:59) Itching red dye Allergy (Mild, Verified 11/13/23 14:59) Unknown tree and shrub pollen Allergy (Mild, Verified 11/13/23 14:59) Nasal congestion erythromycin base Allergy (Verified 11/13/23 14:59) Nausea and Vomiting azathioprine Adverse Reaction (Severe, Verified 11/13/23 14:59) vomiting and diarrhea stevioside [From Stevia] Adverse Reaction (Verified 11/13/23 14:59) Abdominal Pain green dye Allergy (Severe, Uncoded 11/13/23 14:59) Headache molds and smuts Allergy (Severe, Uncoded 11/13/23 14:59) hadache Medication List - Last Reconciled 11/13/23 by Jeison Matta MD acyclovir 400 mg PO BID colchicine 0.6 mg PO BID cyclobenzaprine 10 mg PO BID cyclosporine 0.05% (Restasis) 1 drp ophthalmic (eye) Q12H dicyclomine 20 mg PO BID PRN hydroxychloroquine 300 mg (1.5 x 200 mg) PO DAILY lorazepam 0.5 mg PO DAILY PRN metoclopramide HCl 10 mg PO TID omeprazole 40 mg PO Q72H ondansetron HCl 4 mg PO DAILY PRN rosuvastatin 10 mg PO BEDTIME rosuvastatin 5 mg PO DAILY triamcinolone acetonide (Nasacort Allergy) 1 spray intranasal DAILY zolmitriptan (Zomig) 1 spray intranasal DAILY PRN zolmitriptan 5 mg PO DAILY PRN HPI Comments Details: This is a 58 year old female previously diagnosed with lupus by Dr. Sorto who presents for follow-up. Over the last year patient presented to the hospital multiple times for pericarditis. She has been on multiple doses of prednisone. Last dose of prednisone was October 06. Patient does not want to go back to taking prednisone due to significant weight gain. She has lost some weight since she stopped the prednisone. 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 She stated that hydroxychloroquine has generally helped her. When she was off of it she felt much worse with worsening fatigue and body aches. Her main complaint today is her chest discomfort, shortness of breath, chest pain especially when taking a deep breath and lying on her back. She sleeps sitting down. She has noted mildly erythematous rash on her extremities and torso. She has mildly cool fingers and toes but never developed any digital ulcers. She denies any fevers. She was evaluated by human resource adviser due to recurrent diarrhea and GI symptoms. She was told that she has bowel inflammation and there is some suspicion of IBD. Her pericarditis symptoms and bowel symptoms improve when she is on prednisone. She had a lip biopsy twice and it was negative for Sjogren's. [facility] Medical History Pericardial effusion Esophageal candidiasis Ileitis Abdominal pain Inflammation of small intestine History of anesthesia complications Hx of chest pain Fusion of spine, cervical region TMJ syndrome Hx of gastritis Cervical radiculopathy Elevated cholesterol Osteoarthritis Hx of migraine headaches Multinodular thyroid Surgical History Hx of shoulder surgery S/P thyroid biopsy H/O colonoscopy History of esophagogastroduodenoscopy (EGD) History of spinal fusion Hx of dilation and curettage Hx of cholecystectomy Hx of tonsillectomy Hx of tubal ligation Family History Mother Diabetes Uterine cancer Hypertension Father Diabetes Hypertension Stroke Family/Other Colon cancer Social History Household Members: Spouse Housing: House Are you a primary post acute care nurse practitioner to a significant other at home: No Do you presently have visiting nurse or other home services: No Alcohol intake: never Patient Tobacco Use Status: Former Tobacco user Tobacco use type: Cigarette Cigarettes Per Day: 10 Years Smoked: 5 Substance Use Type: Marijuana service: No Current occupational status: employed Current occupation: right hand dominant Review of Systems Const Reports body aches, Denies fever(s) and Reports lethargy Card Reports chest pain and Reports palpitations Resp Reports pain on inspiration Musc Denies joint swelling and Denies stiffness Skin/Breast Reports rash Endo Reports palpitations Physical Exam Vital Signs: Last Vital Signs Pulse 105 H 11/13/23 14:51 BP 137/82 11/13/23 14:51 Pulse Ox 99 11/13/23 14:51 Oxygen Delivery Method Room Air 11/13/23 14:51 BMI result Body Mass Index 31.0 Const General: cooperative, healthy appearing and comfortable Nutritional Appearance: obese Orientation/consciousness: patient oriented x3 Limitations: no limitations HEENT Other: Dry mucous membranes Head: Yes normocephalic and Yes atraumatic Resp Effort & Inspection: normal respiratory effort and able to speak in complete sentences Auscultation: diminished lung sounds bilateral in the lower lung will Cardio Rate: regular rate and tachycardic Rhythm: regular rhythm Skin Other: Significant livedo reticularis on her back, arms, thighs Neuro General: patient oriented x3 Extrem Other: Mildly cool fingertips Normal nailfold capillaroscopy No active synovitis Assessment & Plan Assessment & Plan (1) Recurrent idiopathic pericarditis: Code(s): I30.0 - Acute nonspecific idiopathic pericarditis Category: Medical Plan: This is a 58-year-old female previously diagnosed with SLE who presents for follow-up. This is her 1st visit with me. She used to follow up with Dr. Sorto. Upon evaluation it seems like patient's main complaint is her recurrent pericarditis. She has had numerous attacks of pericarditis over the last 6 months. Usually treated with prednisone with improvement. She is on hydroxychloroquine 300 mg daily. She is on colchicine 0.6 mg Twice daily she could not tolerate azathioprine due to significant vomiting and diarrhea. Upon evaluation I do not see any compelling evidence of SLE. Patient has a positive BRAY[place] but she has negative [place], normal C3-C4, no cytopenias, no proteinuria. No lupus specific rashes. I believe her diagnosis is current idiopathic pericarditis and she needs to be treated accordingly. At this time patient has failed colchicine, could not tolerate azathioprine she gets some response with corticosteroids but she has gained significant weight. Interleukin 1 inhibitors have been shown to be useful in treating recurrent idiopathic pericarditis. References: PMID:?[id number]:?[id number]?? PMID:?[id number] Discussed risks and benefits of anakinra. Patient agreed to proceed. Will start prior authorization for anakinra Continue with colchicine 0.6 mg Twice daily. Continue with hydroxychloroquine Check labs today and before next visit in 6 weeks Plan I spent 60 minutes reviewing patient's chart, reviewing records from [facility], evaluating patient, ordering diagnostic workup, researching literature, counseling patient and documenting in the chart Orders: Orders Comprehensive Met. Panel Today M32.9 - Systemic lupus erythematosus, unspecified C Reactive Protein Today M32.9 - Systemic lupus erythematosus, unspecified Erythrocyte Sedimentation Rate Today M32.9 - Systemic lupus erythematosus, unspecified Immunofixation Pnl, Serum Today M32.9 - Systemic lupus erythematosus, unspecified T Spot TB Today Z11.7 - Encounter for testing for latent tuberculosis infection Creatine Kinase Total Today M32.9 - Systemic lupus erythematosus, unspecified Angiotensin Converting Enzyme Today I31.39 - Other pericardial effusion (noninflammatory) Cyclic Citrullinated Peptide Today M32.9 - Systemic lupus erythematosus, unspecified Ferritin Today M32.9 - Systemic lupus erythematosus, unspecified Beta-2 Glycoprotein Antibody Today D68.61 - Antiphospholipid syndrome Cardiolipin Antibodies Today D68.61 - Antiphospholipid syndrome Scleroderma 12 Panel Today M34.9 - Systemic sclerosis, unspecified Complete Blood Count Auto Diff Today M32.9 - Systemic lupus erythematosus, unspecified Hepatitis A,B,C Profile Today Z11.59 - Encounter for screening for other viral diseases Protein Electrophoresis, Serum Today M32.9 - Systemic lupus erythematosus, unspecified Lupus Anticoagulant Panel Today D68.61 - Antiphospholipid syndrome MSA Panel Extended Today M60.9 - Myositis, unspecified Medications: Refilled hydroxychloroquine 300 mg (1.5 x 200 mg) PO DAILY 135 tabs 3RF M32.9 - Systemic lupus erythematosus, unspecified Coding Level of Care Code Est Pt Level 5 (99772) Diagnoses Recurrent idiopathic pericarditis I30.0
[2023-11-13 14:51] VITALS: BP 137/82; PULSE 105; O2SAT 99; BMI 31.0
== END 2023-11-13 15:38 | disposition home or self-care (01) ==
PROVIDERS: PCP Internal Medicine; Visit Provider Student in an Organized Health Care Education/Training Program
DX: I30.0 Acute nonspecific idiopathic pericarditis (principal)
CPT/HCPCS: 99215

== ENCOUNTER 2023-11-14 10:06 | Outpatient (AMB) | payer OTHER, SELFPAY ==
[2023-11-14 10:31] VITALS: PULSE 90; O2SAT 98; BMI 29.8
--- NOTE | 2023-11-14 10:31 | A.OFFVIS_ITS ---
Vital Signs 11/14/23 10:31 Height 5 ft 2 in Weight 163 lb 2.273 oz BMI 29.8 Pulse 90 Pulse Source Pulse Oximeter Pulse Oximetry (%) 98 Oxygen Delivery Method Room Air Intake Visit Reasons: Shortness of Breath/Pericardial Effusion Veneer Marker Required: No Allergies pollen extracts Allergy (Intermediate, Verified 11/14/23 10:33) Runny Nose atorvastatin Allergy (Mild, Verified 11/14/23 10:33) muscle pain blue dye Allergy (Mild, Verified 11/14/23 10:33) Unknown iodine Allergy (Mild, Verified 11/14/23 10:33) Itching red dye Allergy (Mild, Verified 11/14/23 10:33) Unknown tree and shrub pollen Allergy (Mild, Verified 11/14/23 10:33) Nasal congestion erythromycin base Allergy (Verified 11/14/23 10:33) Nausea and Vomiting azathioprine Adverse Reaction (Severe, Verified 11/14/23 10:33) vomiting and diarrhea stevioside [From Stevia] Adverse Reaction (Verified 11/14/23 10:33) Abdominal Pain green dye Allergy (Severe, Uncoded 11/14/23 10:33) Headache molds and smuts Allergy (Severe, Uncoded 11/14/23 10:33) hadache HPI Comments Details: The patient is here for pulmonary evaluation. The patient is a 58 year woman now with a diagnosis of systemic lupus erythematous. She was having issues with a recurrent effusion and she was treated effectively for that. She recently saw a new technology integration specialist. She is currently getting associated with them getting additional blood work and also looking to starting additional medications to try to control the inflammatory process. The last blood work [place] [id number] and also had a significant elevation in sedimentation rate above 70 and a significant CRP. There significant amount of inflammation going on the body. She has had plenty of dosages of prednisone. In addition to that she had been on chronic prednisone for some time and she did not like the feeling. Constitute have significant cushingoid appearance and cushingoid symptoms. Therefore she is trying to avoid prednisone at all cost. The patient did have a CTA done sometime in september which I personally reviewed. She has been having significant tachycardia she did follow-up with cardiology for that. The patient CTA was personally by me. She does have evidence of ground-glass opacities suggesting some degree of pneumonitis likely from the connective tissue disease. In addition to that she did have an echocardiogram which we reviewed demonstrating sinus tachycardia with normal function. Pulmonary pressures were stated to be within normal limits. We did go for brief walking oximetry during the office visit. The patient became tachycardic up to 130 beats per minute with minimal activity. Pulse ox stable at 98%. Therefore, explained to her that his shortness of breath she is feeling right now is primarily due to her significant inflammation and tachyarrhythmia. At this point I do not believe inhalers will help her respiratory symptoms. Although, I do believe that based on the fact that is not clear why she has SVT but the current heart rate is affecting her respiratory symptoms and would not be unreasonable to try small dose of metoprolol to try to settle down the heart rate in order to feel less symptomatic. 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 [facility] Medical History (Updated 11/14/23 @ 22:42 by Jurgen Freed MD) SVT (supraventricular tachycardia) Dyspnea Pneumonitis Pericardial effusion Esophageal candidiasis Ileitis Abdominal pain Inflammation of small intestine History of anesthesia complications Hx of chest pain Fusion of spine, cervical region TMJ syndrome Hx of gastritis Cervical radiculopathy Elevated cholesterol Osteoarthritis Hx of migraine headaches Multinodular thyroid Surgical History Hx of shoulder surgery S/P thyroid biopsy H/O colonoscopy History of esophagogastroduodenoscopy (EGD) History of spinal fusion Hx of dilation and curettage Hx of cholecystectomy Hx of tonsillectomy Hx of tubal ligation Family History Mother Diabetes Uterine cancer Hypertension Father Diabetes Hypertension Stroke Family/Other Colon cancer Social History Household Members: Spouse Housing: House Are you a primary home health care worker to a significant other at home: No Do you presently have visiting nurse or other home services: No Alcohol intake: never Patient Tobacco Use Status: Former Tobacco user Tobacco use type: Cigarette Cigarettes Per Day: 10 Years Smoked: 5 Substance Use Type: Marijuana service: No Current occupational status: employed Current occupation: right hand dominant Review of Systems Const Reports body aches, Reports fatigue, Denies fever(s) and Reports lethargy Eyes Reports no additional complaints ENT Denies nasal congestion Card Reports chest pain, Reports palpitations and Reports dyspnea on exertion Resp Reports pain on inspiration, Reports dyspnea on exertion and Denies wheezing GI Reports change in stool character Musc Denies joint swelling and Denies stiffness Skin/Breast Reports rash Neuro Reports no additional complaints Endo Reports fatigue and Reports palpitations Boom/Lymph Denies easy bleeding Aller/Immun Denies wheezing Physical Exam Vital Signs: Last Vital Signs Pulse 90 11/14/23 10:31 Pulse Ox 98 11/14/23 10:31 Oxygen Delivery Method Room Air 11/14/23 10:31 BMI result Body Mass Index 29.8 Const General: cooperative and comfortable Orientation/consciousness: patient oriented x3 Limitations: no limitations HEENT Other: Dry mucous membranes Head: Yes normocephalic and Yes atraumatic Neck Neck: Yes supple Chest Chest palpation & inspection: normal inspection of the chest Resp Effort & Inspection: normal respiratory effort Auscultation: no rales, no rhonchi, no wheezes and diminished lung sounds bilateral in the lower lung will Cardio Rate: regular rate and tachycardic Rhythm: regular rhythm GI Palpation (GI): Soft to palpation Skin Other: Significant livedo reticularis on her back, arms, thighs General skin exam: no rashes or lesions noted Neuro General: patient oriented x3 Extrem Other: Mildly cool fingertips Normal nailfold capillaroscopy No active synovitis General: Yes no clubbing, cyanosis or edema Results Reviewed Results Reviewed: personally reviewed CTA with some areas of GGO Assessment & Plan Assessment & Plan (1) Systemic lupus erythematosus: Code(s): M32.9 - Systemic lupus erythematosus, unspecified Category: Medical Qualifiers: Systemic lupus erythematosus type: unspecified Systemic lupus erythematosus organ involvement: lung involvement Qualified Code(s): M32.13 - Lung involvement in systemic lupus erythematosus (2) Pneumonitis: Code(s): J98.4 - Other disorders of lung Category: Medical (3) Dyspnea: Code(s): R06.00 - Dyspnea, unspecified Category: Medical Qualifiers: Dyspnea type: dyspnea on exertion Qualified Code(s): R06.09 - Other forms of dyspnea (4) SVT (supraventricular tachycardia): Code(s): I47.10 - Supraventricular tachycardia, unspecified Category: Medical Plan The dyspnea appears to be multifactorial. Although, her CTA demonstrates some patchy areas of GGO, he exam is reassuring and her 6MWT also demonstrated a normal pox. In part er SVT maybe driving some of the dyspnea due to her work of breathing. Also she may have a component of fatigue and she will be further evaluated for polymyositis and anti synthase syndrome. REC: Awaiting approval IL-1 inhibitor PFTs consider a trial of a small dose of a beta michelle repeat CT chest in 3 months F/U in 3 months Orders: Orders CT chest wo IV con Today J98.4 - Other disorders of lung PFT pulmonary function test Today J98.4 - Other disorders of lung Coding Level of Care Code New Pt Level 5 (04671) Diagnoses Systemic lupus erythematosus with lung involvement, unspecified SLE type M32.13 Systemic lupus erythematosus type: unspecified Systemic lupus erythematosus organ involvement: lung involvement Pneumonitis J98.4 Dyspnea on exertion R06.09 Dyspnea type: dyspnea on exertion SVT (supraventricular tachycardia) I47.10 Time Spent (min) 60
== END 2023-11-14 11:33 | disposition home or self-care (01) ==
PROVIDERS: PCP Internal Medicine; Referring Provider Internal Medicine; Visit Provider Hospitalist
DX: M32.13 Lung involvement in systemic lupus erythematosus (principal); J98.4 Other disorders of lung; R06.09 Other forms of dyspnea; I47.10 Supraventricular tachycardia, unspecified
CPT/HCPCS: 99205

== ENCOUNTER → 2023-11-14 10:06 | Outpatient (BNVA) | payer OTHER, SELFPAY | PROVIDERS: PCP Internal Medicine; Referring Provider Internal Medicine; Visit Provider Hospitalist ==

== ENCOUNTER 2023-11-17 09:50 | Outpatient (REF) | payer OTHER, SELFPAY ==
--- NOTE | 2023-11-17 10:00 | PFT_ITS ---
Flows: FEV1: 91 % of predicted at 2.19 L FVC: 97 % of predicted at 2.95 L FEV1/FVC: 74 % Bronchodilator response: Absent Volumes: Total lung capacity: 79 % of predicted at 3.92 L Residual volume: 58 % of predicted at 0.97 L Slow vital capacity: 90 % of predicted at 2.95 L Expiratory reserve volume: 104 % of predicted at 0.83 L Diffusion capacity: Severely decreased, improves to moderately decreased after correction for alveolar ventilation. Impression: Patient was not able to perform all the maneuvers up to ATS standard, thus validity of final values is questionable. Overall normal spirometry with lung volumes suggesting mild restrictive ventilatory defect and diffusing capacity moderately decreased. MTDD
[2023-11-17 10:03] VITALS: PULSE 109; RESP 16; O2SAT 98
== END 2023-11-17 09:51 | disposition home or self-care (01) ==
LOC: HO.RESP 09:50
PROVIDERS: PCP Internal Medicine; Visit Provider Hospitalist
DX: J98.4 Other disorders of lung (principal)
CPT/HCPCS: 94010; 94640; 94727; 94729

== ENCOUNTER 2023-12-11 11:06 | Outpatient (REF) | payer OTHER, SELFPAY ==
[2023-12-11 12:12] LABS: MANUAL DIFF FLAG NO
[2023-12-11 12:25] LABS: Basophils Absolute Auto 0.1 X10*3/uL (0.0-0.2); Basophils Percent Auto 0.6 % (0-2); Eosinophils Absolute Auto 0.3 X10*3/uL (0.0-0.4); Eosinophils Percent Auto 3.2 % (0-4); Hematocrit 42.9 % (37.0-47.0); Hemoglobin 14.4 g/dl (12.0-16.0); Imm Gran Abs Auto 0.04 X10*3/uL (0.00-0.03); Imm Gran Pct Auto 0.4 % (0.0-0.4); Lymphocytes Absolute Auto 1.8 X10*3/uL (1.2-4.9); Mean Corpuscular HGB Conc 33.6 g/dl (31.0-35.0); Mean Corpuscular Hemoglobin 29.8 pg (27.0-33.0); Mean Corpuscular Volume 88.6 fL (80.0-98.0); Mean Platelet Volume 10.6 fL (9.4-12.3); Monocytes Absolute Auto 0.6 X10*3/uL (0.1-1.2); Monocytes Percent Auto 6.5 % (2-11); Neutrophils Absolute Auto 7.1 x10*3/uL (2.0-8.3); Neutrophils Percent Auto 71.3 % (45-73); Platelet Count 292 X10*3/uL (160-400); Red Blood Count 4.84 X10*6/uL (4.20-5.50); White Blood Count 9.9 X10*3/uL (4.8-10.8)
[2023-12-11 12:52] LABS: Alanine Aminotransferase 33 U/L (0-31); Albumin Level 4.3 g/dL (3.5-5.0); Alkaline Phosphatase 117 U/L (39-117); Anion Gap 14 (12-20); Aspartate Amino Transferase 24 U/L (5-31); Bilirubin Total 0.3 mg/dL (0.0-1.0); Blood Urea Nitrogen 12 mg/dL (9-16); C Reactive Protein 0.14 mg/dL (< or = 0.50); Calcium 9.8 mg/dL (8.4-10.2); Carbon Dioxide 24 mmol/L (22-29); Chloride 108 mmol/L (96-108); Estimated Glomerular Filt Rate > 60; Glucose Random 101 mg/dL (60-115); Potassium 3.4 mmol/L (3.3-5.1); Sodium 143 mmol/L (135-145); Total Protein 7.3 g/dL (6.5-8.0)
[2023-12-11 13:11] LABS: Erythrocyte Sedimentation Rate 19 MM/HR (0-20)
== END 2023-12-11 11:07 | disposition home or self-care (01) ==
LOC: HO.LAB 11:06
PROVIDERS: PCP Internal Medicine; Visit Provider Nurse Practitioner
DX: M19.90 Unspecified osteoarthritis, unspecified site (principal); M32.13 Lung involvement in systemic lupus erythematosus; K59.9 Functional intestinal disorder, unspecified; R14.0 Abdominal distension (gaseous)
CPT/HCPCS: 36415; 80053; 85025; 85652; 86140

== ENCOUNTER 2023-12-11 11:06 | Outpatient (AMB) | payer OTHER, SELFPAY ==
--- NOTE | 2023-12-11 11:12 | A.OFFVIS_ITS ---
Vital Signs 12/11/23 11:19 Height 5 ft 2 in Weight 156 lb BMI 28.5 BP 152/76 H Blood Pressure Location Lt brachial Position Sitting Pulse 92 Intake Visit Reasons: 6 months follow up IBS Intake Note: Patient 6 month follow up for IBS. Patient cc: Nauseas, diarrhea, headaches, GERD and fatigue. Religious Ritual Slaughterer Required: No Accompanied by: Spouse Allergies pollen extracts Allergy (Intermediate, Verified 12/11/23 11:12) Runny Nose atorvastatin Allergy (Mild, Verified 12/11/23 11:12) muscle pain blue dye Allergy (Mild, Verified 12/11/23 11:12) Unknown iodine Allergy (Mild, Verified 12/11/23 11:12) Itching red dye Allergy (Mild, Verified 12/11/23 11:12) Unknown tree and shrub pollen Allergy (Mild, Verified 12/11/23 11:12) Nasal congestion erythromycin base Allergy (Verified 12/11/23 11:12) Nausea and Vomiting azathioprine Adverse Reaction (Severe, Verified 12/11/23 11:12) vomiting and diarrhea stevioside [From Stevia] Adverse Reaction (Verified 12/11/23 11:12) Abdominal Pain green dye Allergy (Severe, Uncoded 11/14/23 10:33) Headache molds and smuts Allergy (Severe, Uncoded 11/14/23 10:33) hadache HPI HPI 6 months follow up IBS : Details: Assessment & Plan (1) Irritable bowel syndrome with both constipation and diarrhea: Code(s): K58.2 - Mixed irritable bowel syndrome (2) Small bowel motility disorder: Code(s): K59.9 - Functional intestinal disorder, unspecified (3) Hx of gastritis: Code(s): Z87.19 - Personal history of other diseases of the digestive system (4) Systemic lupus erythematosus: Code(s): M32.9 - Systemic lupus erythematosus, unspecified (5) Inflammatory arthritis: Code(s): M19.90 - Unspecified osteoarthritis, unspecified site Plan She is still struggling with fatigue, she is unable to return to work, probably needs to retire. She is here today with her who is supportive. She is struggling with CIC but still will have random episodes of diarrhea. Her Rheum will be managed at [facility] now as Dr. Leonardo retired. She will be having a salivary gland biopsy soon, and they think she has an endocrine problem as she has frequent severe hot flashes. She continues on reglan, omeprazole and bentyl. She is going to go to 40mg qod to wean the omeprazole as she has not had upper GI sx. This is fine and I can provide 20mg if needed. She is on colchicine now along with prednsone and hydroxychloroqinoline. She stil wants to wean sonia prednisone but I caution her that she needs to do this VERY SLOWLY as she had had a lot of rebound inflammation when she has tried to wean in the past. ROV 6 mos. Medications: New omeprazole 40 mg PO DAILY 30 caps 6RF Z87.19 - Personal history of other diseases of the digestive system Refilled metoclopramide HCl 10 mg PO TID 270 tabs 1RF K59.9 - Functional intestinal disorder, unspecified dicyclomine 20 mg PO TID PRN 90 tabs 3RF SPASMS TODAY'S VISIT She is here today with her who is supportive She will be starting a new medicine called Kineret. She is being treated by Dr. 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 However, since getting off of the prednisone her sx have recurred, paul fatigue, jiont aches and elevated pulse. She continues on her omeprazole and she has Reglan and dicyclomine available for the irritable bowel as she goes through all of these changes in medications and management of her underlying rheumatologic situation. Return office visit in 6 months [facility] Medical History (Updated 11/14/23 @ 22:42 by Jurgen Freed MD) SVT (supraventricular tachycardia) Dyspnea Pneumonitis Pericardial effusion Esophageal candidiasis Ileitis Abdominal pain Inflammation of small intestine History of anesthesia complications Hx of chest pain Fusion of spine, cervical region TMJ syndrome Hx of gastritis Cervical radiculopathy Elevated cholesterol Osteoarthritis Hx of migraine headaches Multinodular thyroid Surgical History Hx of shoulder surgery S/P thyroid biopsy H/O colonoscopy History of esophagogastroduodenoscopy (EGD) History of spinal fusion Hx of dilation and curettage Hx of cholecystectomy Hx of tonsillectomy Hx of tubal ligation Family History Mother Diabetes Uterine cancer Hypertension Father Diabetes Hypertension Stroke Family/Other Colon cancer Social History Household Members: Spouse Housing: House Are you a primary daycare teacher to a significant other at home: No Do you presently have visiting nurse or other home services: No Alcohol intake: never Patient Tobacco Use Status: Former Tobacco user Tobacco use type: Cigarette Cigarettes Per Day: 10 Years Smoked: 5 Substance Use Type: Marijuana service: No Current occupational status: employed Current occupation: right hand dominant Review of Systems Const Reports fatigue, Denies fever(s), Reports malaise, Denies night sweats, Denies poor appetite and Denies weight loss ENT Reports Normal hearing present, Denies dental pain, Denies dysphagia, Denies hearing loss, Denies mouth pain, Denies odynophagia, Denies throat swelling, Denies tongue swelling and Reports other (Dentition adequate) Card Reports chest pain and Reports dyspnea on exertion Resp Reports dyspnea on exertion GI Details: Denies abdominal pain, Denies melena, Reports bloating, Denies hematochezia, Reports constipation, Denies GI cramping, Denies dysphagia, Denies excessive flatus, Denies early satiety, Reports heartburn, Reports diarrhea, Denies nausea, Denies odynophagia, Denies vomiting and Denies hematemesis Musc Reports myalgias, Reports arthralgias and Reports muscle weakness Skin/Breast Denies pruritus, Denies lesions, Denies rash and Denies jaundice Neuro Reports Normal hearing present and Denies Abnormal speech present Endo Reports fatigue Aller/Immun Denies throat swelling and Denies tongue swelling Physical Exam Vital Signs: Last Vital Signs Pulse 92 12/11/23 11:19 BP 152/76 H 12/11/23 11:19 BMI result Body Mass Index 28.5 Const General: cooperative, no acute distress, well developed and well groomed Nutritional Appearance: average body habitus and well nourished Orientation/consciousness: oriented to person, oriented to place and oriented to time Limitations: No language barrier HEENT Head: Yes normocephalic and Yes atraumatic Eyes General: appearance normal, both eyes and all related structures Pupils: Equal, round and reactive pupils present Neck Neck: Yes normal visual inspection and Yes no lymphadenopathy Thyroid: Thyroid normal Resp Effort & Inspection: normal respiratory effort and able to speak in complete sentences Auscultation: clear to auscultation bilaterally Cardio Rate: regular rate Rhythm: regular rhythm Heart sounds: Normal, physiologic split S2 sound present Peripheral pulses: radial pulses present and posterior tibial pulses present GI Inspection: No distended and No Abdominal panniculus present Palpation (GI): Soft to palpation, nontender, no guarding, not rigid and No hepatosplenomegaly present Percussion: Yes normal to percussion Auscultation: normal bowel sounds Rectal Exam - Female: deferred Skin General skin exam: no rashes or lesions noted, turgor normal, skin not dry, no jaundice, No spider nevi and no striae Rashes: no rashes Nails: normal Neuro General: oriented to person, oriented to place and oriented to time Cranial nerves: Yes Equal, round and reactive pupils present and Yes Normal hearing present Speech: No Abnormal speech present Extrem General: Yes normal to inspection, No clubbing, No cyanosis and No edema Psych Appearance: grossly normal and well kempt Mental Status: mental status grossly normal Speech and movement: Normal speech and movement present Affect: normal affect Attitude: cooperative Thought process: Normal thought process present and not confabulating Thought content: Normal thought content present Insight: Good insight present (Psych) Judgement: Good judgement present (Psych) Assessment & Plan Assessment & Plan (1) Inflammatory arthritis: Code(s): M19.90 - Unspecified osteoarthritis, unspecified site Category: Medical (2) Systemic lupus erythematosus: Code(s): M32.9 - Systemic lupus erythematosus, unspecified Category: Medical Qualifiers: Systemic lupus erythematosus organ involvement: lung involvement [facility] lupus erythematosus type: unspecified Qualified Code(s): M32.13 - Lung involvement in systemic lupus erythematosus (3) Small bowel motility disorder: Code(s): K59.9 - Functional intestinal disorder, unspecified Category: Medical (4) Abdominal bloating: Code(s): R14.0 - Abdominal distension (gaseous) Category: Medical Plan She is here today with her who is supportive She will be starting a new medicine called Kineret. She is being treated by Dr. 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 However, since getting off of the prednisone her sx have recurred, paul fatigue, jiont aches and elevated pulse. She continues on her omeprazole and she has Reglan and dicyclomine available for the irritable bowel as she goes through all of these changes in medications and management of her underlying rheumatologic situation. Return office visit in 6 months Orders: Orders C Reactive Protein 12/11/23 M19.90 - Unspecified osteoarthritis, unspecified site, M32.13 - Lung involvement in systemic lupus erythematosus Comprehensive Met. Panel 12/11/23 M19.90 - Unspecified osteoarthritis, unspecified site, M32.13 - Lung involvement in systemic lupus erythematosus Complete Blood Count Auto Diff 12/11/23 M19.90 - Unspecified osteoarthritis, unspecified site, M32.13 - Lung involvement in systemic lupus erythematosus Erythrocyte Sedimentation Rate 12/11/23 M1.90 - Unspecified osteoarthritis, unspecified site, M32.13 - Lung involvement in systemic lupus erythematosus Medications: New ondansetron HCl 8 mg PO DAILY 15 tabs 0RF 15 days Changed From omeprazole 40 mg PO Q72H To omeprazole 40 mg PO DAILY 30 caps 6RF Coding Level of Care Code Est Pt Level 3 (19656) Diagnoses Inflammatory arthritis M19.90 Systemic lupus erythematosus with lung involvement, unspecified SLE type M32.13 Systemic lupus erythematosus organ involvement: lung involvement Systemic lupus erythematosus type: unspecified Small bowel motility disorder K59.9 Abdominal bloating R14.0
[2023-12-11 11:19] VITALS: BP 152/76; PULSE 92; BMI 28.5
== END 2023-12-11 12:01 | disposition home or self-care (01) ==
PROVIDERS: PCP Internal Medicine; Visit Provider Nurse Practitioner
DX: M19.90 Unspecified osteoarthritis, unspecified site (principal); M32.13 Lung involvement in systemic lupus erythematosus; K59.9 Functional intestinal disorder, unspecified; R14.0 Abdominal distension (gaseous)
CPT/HCPCS: 99213

== ENCOUNTER 2023-12-26 12:10 | Outpatient (AMB) | payer OTHER, SELFPAY ==
[2023-12-26 12:29] VITALS: BP 100/60; PULSE 79; O2SAT 99; BMI 28.7
--- NOTE | 2023-12-26 12:29 | A.OFFVIS_ITS ---
Vital Signs 12/26/23 12:29 Height 5 ft 2 in Weight 157 lb BMI 28.7 BP 100/60 Blood Pressure Location Rt brachial Position Sitting Pulse 79 Pulse Source Pulse Oximeter Pulse Oximetry (%) 99 Oxygen Delivery Method Room Air Intake Visit Reasons: Pericarditis/CM Intake Note: Patient last seen on 11/13/23 present today for follow up and test results. Allergies pollen extracts Allergy (Intermediate, Verified 12/11/23 11:12) Runny Nose atorvastatin Allergy (Mild, Verified 12/11/23 11:12) muscle pain blue dye Allergy (Mild, Verified 12/11/23 11:12) Unknown iodine Allergy (Mild, Verified 12/11/23 11:12) Itching red dye Allergy (Mild, Verified 12/11/23 11:12) Unknown tree and shrub pollen Allergy (Mild, Verified 12/11/23 11:12) Nasal congestion erythromycin base Allergy (Verified 12/11/23 11:12) Nausea and Vomiting azathioprine Adverse Reaction (Severe, Verified 12/11/23 11:12) vomiting and diarrhea stevioside [From Stevia] Adverse Reaction (Verified 12/11/23 11:12) Abdominal Pain green dye Allergy (Severe, Uncoded 11/14/23 10:33) Headache molds and smuts Allergy (Severe, Uncoded 11/14/23 10:33) hadache Medication List - Last Reconciled 12/26/23 by Jeison Matta MD acyclovir 400 mg PO BID colchicine 0.6 mg PO BID cyclobenzaprine 10 mg PO BID cyclosporine 0.05% (Restasis) 1 drp ophthalmic (eye) Q12H dicyclomine 20 mg PO BID PRN hydroxychloroquine 300 mg (1.5 x 200 mg) PO DAILY Kineret (anakinra) 100 mg (0.67 mL) subcut DAILY NS lorazepam 0.5 mg PO DAILY PRN metoclopramide HCl 10 mg PO TID metoprolol succinate ER 100 mg PO DAILY omeprazole 40 mg PO DAILY ondansetron HCl 8 mg PO DAILY 15 days rosuvastatin 10 mg PO BEDTIME rosuvastatin 5 mg PO DAILY triamcinolone acetonide (Nasacort Allergy) 1 spray intranasal DAILY verapamil ER 120 mg PO DAILY zolmitriptan (Zomig) 1 spray intranasal DAILY PRN zolmitriptan 5 mg PO DAILY PRN HPI Comments Details: This is a 58-year-old female with idiopathic pericarditis who presents for follow-up. She started [place] a little over 2 weeks ago. She states that she feels much better overall. Overall less achy, more energy, resolution of chest pain and diarrhea. She has not been on prednisone in a very long time. Denies any significant injection site reactions except for 1 episode when she developed some itching, she iced it with resolution Initial history: This is a 58 year old female previously diagnosed with lupus by Dr. Sorto who presents for follow-up. Over the last year patient presented to the hospital multiple times for pericarditis. She has been on multiple doses of prednisone. Last dose of prednisone was October 06. Patient does not want to go back to taking prednisone due to significant weight gain. She has lost some weight since she stopped the prednisone. She stated that colchicine was started by her diet clerk at [facility] with some improvement. She stated that hydroxychloroquine has generally helped her. When she was off of it she felt much worse with worsening fatigue and body aches. Her main complaint today is her chest discomfort, shortness of breath, chest pain especially when taking a deep breath and lying on her back. She sleeps sitting down. She has noted mildly erythematous rash on her extremities and torso. She has mildly cool fingers and toes but never developed any digital ulcers. She denies any fevers. She was evaluated by lubrication technician due to recurrent diarrhea and GI symptoms. She was told that she has bowel inflammation and there is some suspicion of IBD. Her pericarditis symptoms and bowel symptoms improve when she is on prednisone. She had a lip biopsy twice and it was negative for Sjogren's. [facility] Medical History SVT (supraventricular tachycardia) Dyspnea Pneumonitis Pericardial effusion Esophageal candidiasis Ileitis Abdominal pain Inflammation of small intestine History of anesthesia complications Hx of chest pain Fusion of spine, cervical region TMJ syndrome Hx of gastritis Cervical radiculopathy Elevated cholesterol Osteoarthritis Hx of migraine headaches Multinodular thyroid Surgical History Hx of shoulder surgery S/P thyroid biopsy H/O colonoscopy History of esophagogastroduodenoscopy (EGD) History of spinal fusion Hx of dilation and curettage Hx of cholecystectomy Hx of tonsillectomy Hx of tubal ligation Family History Mother Diabetes Uterine cancer Hypertension Father Diabetes Hypertension Stroke Family/Other Colon cancer Social History Household Members: Spouse Housing: House Are you a primary care director to a significant other at home: No Do you presently have visiting nurse or other home services: No Alcohol intake: never Patient Tobacco Use Status: Former Tobacco user Tobacco use type: Cigarette Cigarettes Per Day: 10 Years Smoked: 5 Substance Use Type: Marijuana service: No Current occupational status: employed Current occupation: right hand dominant Review of Systems Card Denies chest pain Musc Denies arthralgias, Denies joint swelling and Denies stiffness Physical Exam Vital Signs: Last Vital Signs Pulse 79 12/26/23 12:29 BP 100/60 12/26/23 12:29 Pulse Ox 99 12/26/23 12:29 Oxygen Delivery Method Room Air 12/26/23 12:29 BMI result Body Mass Index 28.7 Const General: cooperative, healthy appearing and comfortable Nutritional Appearance: obese Orientation/consciousness: patient oriented x3 Limitations: no limitations HEENT Head: Yes normocephalic and Yes atraumatic Resp Effort & Inspection: normal respiratory effort and able to speak in complete sentences Cardio Rate: regular rate Rhythm: regular rhythm Skin Other: Significant livedo reticularis on her back, arms, thighs Neuro General: patient oriented x3 Extrem Other: Normal nailfold capillaroscopy No active synovitis Assessment & Plan Assessment & Plan (1) Recurrent idiopathic pericarditis: Comment: Hydroxychloroquine minimal effective Colchicine minimally effective Azathioprine not tolerated [facility] 11/2023 effective Code(s): I30.0 - Acute nonspecific idiopathic pericarditis Category: Medical Plan: This is a 58-year-old female with recurrent idiopathic pericarditis who presents for follow-up. Anakinra was finally approved about 2 weeks ago and patient started it. She feels much better overall. Improved generalized fatigue, body aches, tachycardia, chest pain improved. Has not noted any side effects related to anakinra. Her white count, CRP and ESR normalized Continue anakinra, Continue with colchicine 0.6 mg Twice daily. Continue with hydroxychloroquine Discussed genetic testing for autoinflammatory syndromes. Patient will contact [facility] before next visit in 10 weeks Plan I spent 22 minutes reviewing patient's chart, reviewing records from [facility], evaluating patient, ordering diagnostic workup, counseling patient and documenting in the chart Orders: Orders Complete Blood Count Auto Diff 10 Weeks I30.0 - Acute nonspecific idiopathic pericarditis Comprehensive Met. Panel 10 Weeks I30.0 - Acute nonspecific idiopathic pericarditis C Reactive Protein 10 Weeks I30.0 - Acute nonspecific idiopathic pericarditis Erythrocyte Sedimentation Rate 10 Weeks I30.0 - Acute nonspecific idiopathic pericarditis Coding Level of Care Code Est Pt Level 4 (33402) Diagnoses Recurrent idiopathic pericarditis I30.0
== END 2023-12-26 12:56 | disposition home or self-care (01) ==
PROVIDERS: PCP Internal Medicine; Visit Provider Student in an Organized Health Care Education/Training Program
DX: I30.0 Acute nonspecific idiopathic pericarditis (principal)
CPT/HCPCS: 99214

== ENCOUNTER → 2023-12-26 12:10 | Outpatient (BNVA) | payer OTHER, SELFPAY | PROVIDERS: PCP Internal Medicine; Visit Provider Student in an Organized Health Care Education/Training Program ==

== ENCOUNTER 2023-12-28 13:26 | Outpatient (REF) | payer OTHER, SELFPAY ==
--- NOTE | ~2023-12-28 | MR_ITS ---
EXAMINATION: MRI NECK WITHOUT AND WITH CONTRAST CLINICAL INFORMATION: Follow-up thyroglossal duct cyst. COMPARISON: MRI dated 12/20/2022. TECHNIQUE: MRI of the neck was obtained using routine sequences without and with contrast. Intravenous contrast: Gadavist 7 mL. FINDINGS: A lobulated cystic lesion without associated enhancement or restricted diffusion in the midline tongue base measuring approximately 1.7 x 1 x 0.9 cm in size is overall stable compared to the prior study. No pathologically enlarged cervical lymph nodes are seen. A previously seen heterogeneous nodule in the left thyroid lobe is incompletely imaged though is grossly similar appearance to the previous study. The parotid and submandibular glands are normal. The pharyngeal mucosal space and larynx appear normal. The imaged orbits are normal. The patient is status post a previous anterior cervical discectomy and fusion with hardware instrumentation at the C5-C6 level. The marrow signal is homogeneous. The craniovertebral junction is normal. The imaged paranasal sinuses are clear. The visualized portions of the brain demonstrate no acute abnormality. 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 Grossly similar appearing heterogeneous nodule in the left thyroid lobe, otherwise incompletely imaged on the current exam. Electronically signed by: Seth Beckwith MD 01/23/2024 02:36 PM EDT
[2023-12-28] MEDS: gadobutroL 7.5 ML VIAL IVPUSH (14:56)
== END 2023-12-28 13:27 | disposition home or self-care (01) ==
LOC: HO.MRI 13:26
PROVIDERS: PCP Internal Medicine; Visit Provider Internal Medicine
DX: Q89.2 Congenital malformations of other endocrine glands (principal)
CPT/HCPCS: 70543; A9585

== ENCOUNTER 2024-01-02 07:08 | Outpatient (REF) | payer OTHER, SELFPAY ==
--- NOTE | ~2024-01-02 | CT_ITS ---
EXAMINATION: CT CHEST WITHOUT CONTRAST CLINICAL INFORMATION: Pneumonitis. COMPARISON: 09/24/2022 TECHNIQUE: Multidetector volumetric CT imaging of the chest was done. Axial MIP volume rendering provided. Sagittal and coronal reformatted images were obtained. This CT examination was performed using dose optimization techniques as appropriate, variously including the following: *Automated exposure control *Adjustment of mA and/or kV according to patient size (this includes techniques or standardized protocols for targeted exams where dose is matched to indication/reason for exam; i.e. extremities or head) *Use of iterative reconstruction technique DLP: 109 mGy-cm FINDINGS: LUNGS: 4 mm nodule right lower lobe on image 292. 4 mm nodule right lower lobe on image 284. No focal consolidation. Linear atelectasis versus scarring in the right lower lobe. Central airways are patent. MEDIASTINUM: Imaged thyroid gland is unremarkable. No bulky axillary, mediastinal or hilar lymphadenopathy. Great vessels are of normal caliber. Heart size is normal. No pericardial effusion. CORONARY ARTERY CALCIFICATION: None visualized on this study. PLEURA: No pleural effusion. UPPER ABDOMEN: Scattered hepatic cysts. Status post cholecystectomy OSSEOUS STRUCTURES: No destructive bone lesions. CT/CT chest wo IV con IMPRESSION: 4 mm pulmonary nodules. These nodules have been stable since 09/24/2022. No further routine follow-up is needed.
== END 2024-01-02 07:09 | disposition home or self-care (01) ==
LOC: HO.CT 07:08
PROVIDERS: Visit Provider Hospitalist
DX: J98.4 Other disorders of lung (principal)
CPT/HCPCS: 71250

== ENCOUNTER 2024-01-14 10:31 | Outpatient (REF) | payer OTHER, SELFPAY ==
--- NOTE | ~2024-01-14 | US_ITS ---
EXAMINATION: US THYROID CLINICAL INFORMATION: Goiter, left thyroid benign biopsy October 2020. COMPARISON: Thyroid ultrasound 12/16/2021, 10/28/2020. TECHNIQUE: Linear transducer grayscale and color Doppler examination with attention to the region of the thyroid. FINDINGS: SIZE: Measurements of the thyroid lobes and nodules are given in sagittal, anteroposterior and transverse dimensions respectively. Right Thyroid Lobe: 5.2 x 1.4 x 2.0 cm, volume 7.2 mL. Parenchyma: The gland echotexture is heterogeneous. Thyroid vascularity is normal. Left Thyroid Lobe: 4.5 x 2.0 x 2.3 cm, volume 10.7 mL. Parenchyma: The gland echotexture is heterogeneous. Thyroid vascularity is normal. Isthmus: 0.5 cm in maximum AP dimension. Estimated total number of nodules greater than or equal to 1 cm: 2. Tie Bucker nodules are described as follows: 1. Location: Right mid to lower. Size: 1.0 x 0.7 x 0.7 cm, volume 0.2 mL. Previously 0.5 x 0.3 x 0.4 cm, volume 0.03 mL. Nodule characteristics: Composition: Mixed cystic and solid (1). Echogenicity: Hypoechoic (2). Shape: Not taller than wide (0). Margins: Ill-defined (0). Echogenic Foci: None (0). ACR TI-RADS total points: 3, previously 0 ACR TI-RADS category: 3, previously 1 2. Location: Left mid. Size: 2.0 x 1.7 x 1.5 cm, volume 2.5 mL. Previously 1.6 x 1.3 x 1.3 cm, volume 1.5 mL. Nodule characteristics: Composition: Solid (2). Echogenicity: Hypoechoic (2). Shape: Taller than wide (3). Margins: Ill-defined (0). Echogenic Foci: None (0). ACR TI-RADS total points: 7, previously 6 ACR TI-RADS category: 5, previously 4 3. Location: Left lower. Size: 0.8 x 0.6 x 0.7 cm, volume 0.2 mL. Previously 1.0 x 0.6 x 0.7 cm, volume 0.2 mL. Nodule characteristics: Composition: Solid (2). Echogenicity: Hypoechoic (2). Shape: Not taller than wide (0). Margins: Ill-defined (0). Echogenic Foci: None (0). ACR TI-RADS total points: 4, previously 3 ACR TI-RADS category: 4, previously 3 NODES: No lymphadenopathy is seen in the tissue surrounding the thyroid gland. US/US thyroid IMPRESSION: A 2.0 cm left mid TR 5 thyroid nodule has increased in size and meets criteria for biopsy. Fine-needle aspiration recommended. This study was presented to me on January 30, 2024 for interpretation. PSA staff will provide results to referring provider at this time. ACR TI-RADS RECOMMENDATION REFERENCE: Ultrasound-guided fine-needle aspiration, followup ultrasound, no further follow up. * TR1 (0 point) and TR2 (2 points): No FNA or follow up. * TR3 (3 points): FNA if more than or equal to 2.5 cm in maximum dimension, followup ultrasound in 1, 3 and 5 years if 1.5 to 2.4 cm in maximum dimension. * TR4 (4-6 points): FNA if more than or equal to 1.5 cm in maximum dimension, followup ultrasound in 1, 2, 3 and 5 years if 1 to 1.4 cm in maximum dimension. * TR5 (more than or equal to 7 points): FNA if more than or equal to 1 cm in maximum dimension, followup ultrasound every year for 5 years if 0.5 to 0.9 cm in maximum dimension. * TR3, TR4 or TR5 nodules that are below the size threshold for followup receive no follow up. Electronically signed by: Abida Guillen MD 01/30/2024 07:39 AM EDT
== END 2024-01-14 10:32 | disposition home or self-care (01) ==
LOC: HO.US 10:31
PROVIDERS: PCP Internal Medicine; Visit Provider Internal Medicine Endocrinology, Diabetes & Metabolism
DX: E04.2 Nontoxic multinodular goiter (principal)
CPT/HCPCS: 76536

== ENCOUNTER 2024-01-25 09:51 | Outpatient (AMB) | payer OTHER, SELFPAY ==
[2024-01-25 10:01] VITALS: BP 118/70; PULSE 66; O2SAT 97; BMI 29.3
--- NOTE | 2024-01-25 10:01 | MHC.OFFVIS ---
Vital Signs 01/25/24 10:01 Height 5 ft 2 in Weight 160 lb BMI 29.3 BP 118/70 Blood Pressure Location Lt brachial Position Sitting Pulse 66 Pulse Source Pulse Oximeter Pulse Oximetry (%) 97 Oxygen Delivery Method Room Air Intake Visit Reasons: Shortness of Breath/Pericardial Effusion Salt Miner Required: No Allergies pollen extracts Allergy (Intermediate, Verified 01/25/24 10:03) Runny Nose atorvastatin Allergy (Mild, Verified 01/25/24 10:03) muscle pain blue dye Allergy (Mild, Verified 01/25/24 10:03) Unknown iodine Allergy (Mild, Verified 01/25/24 10:03) Itching red dye Allergy (Mild, Verified 01/25/24 10:03) Unknown tree and shrub pollen Allergy (Mild, Verified 01/25/24 10:03) Nasal congestion erythromycin base Allergy (Verified 01/25/24 10:03) Nausea and Vomiting azathioprine Adverse Reaction (Severe, Verified 01/25/24 10:03) vomiting and diarrhea stevioside [From Stevia] Adverse Reaction (Verified 01/25/24 10:03) Abdominal Pain green dye Allergy (Severe, Uncoded 01/25/24 10:03) Headache molds and smuts Allergy (Severe, Uncoded 01/25/24 10:03) hadache HPI Comments Details: The patient is a 58 year woman now with a diagnosis of systemic lupus erythematous. She was having issues with a recurrent effusion and she was treated effectively for that. She recently saw a new mandarin teacher. She is currently getting associated with them getting additional blood work and also looking to starting additional medications to try to control the inflammatory process. The last blood [place] [address] and also had a significant elevation in sedimentation rate above 70 and a significant CRP. There significant amount of inflammation going on the body. She has had plenty of dosages of prednisone. In addition to that she had been on chronic prednisone for some time and she did not like the feeling. Constitute have significant cushingoid appearance and cushingoid symptoms. Therefore she is trying to avoid prednisone at all cost. The patient did have a CTA done sometime in september which I personally reviewed. She has been having significant tachycardia she did follow-up with cardiology for that. The patient CTA was personally by me. She does have evidence of ground-glass opacities suggesting some degree of pneumonitis likely from the connective tissue disease. In addition to that she did have an echocardiogram which we reviewed demonstrating sinus tachycardia with normal function. Pulmonary pressures were stated to be within normal limits. We did go for brief walking oximetry during the office visit. The patient became tachycardic up to 130 beats per minute with minimal activity. Pulse ox stable at 98%. Therefore, explained to her that his shortness of breath she is feeling right now is primarily due to her significant inflammation and tachyarrhythmia. At this point I do not believe inhalers will help her respiratory symptoms. Although, I do believe that based on the fact that is not clear why she has SVT but the current heart rate is affecting her respiratory symptoms and would not be unreasonable to try small dose of metoprolol to try to settle down the heart rate in order to feel less symptomatic. I will talk to her clinical data management manager about that. 01/25/2024 the patient is here for a pulmonary follow-up visit. The patient is doing significantly better did undergo a repeat CT scan of the chest which I personally reviewed. There appears to be small 4 mm pulmonary nodule. The ground-glass opacities have significantly improved. Otherwise her CT scan is back to her baseline. Heart rate is also better. She is following up with Cardiology. Her medications are being adjusted. Clinically the patient is doing well. She did not have PFTs but at this point clinically she is doing well we can hold off at this time. The patient will return in a year after follow-up CT scan. If she develops any worsening symptoms prior to that she will call for an earlier assessment. [facility] Medical History (Updated 01/28/24 @ 20:36 by Jurgen Freed MD) Pulmonary nodule SVT (supraventricular tachycardia) Dyspnea Pneumonitis Pericardial effusion Esophageal candidiasis Ileitis Abdominal pain Inflammation of small intestine History of anesthesia complications Hx of chest pain Fusion of spine, cervical region TMJ syndrome Hx of gastritis Cervical radiculopathy Elevated cholesterol Osteoarthritis Hx of migraine headaches Multinodular thyroid Surgical History Hx of shoulder surgery S/P thyroid biopsy H/O colonoscopy History of esophagogastroduodenoscopy (EGD) History of spinal fusion Hx of dilation and curettage Hx of cholecystectomy Hx of tonsillectomy Hx of tubal ligation Family History Mother Diabetes Uterine cancer Hypertension Father Diabetes Hypertension Stroke Family/Other Colon cancer Social History Household Members: Spouse Housing: House Are you a primary director long term care to a significant other at home: No Do you presently have visiting nurse or other home services: No Alcohol intake: never Patient Tobacco Use Status: Former Tobacco user Tobacco use type: Cigarette Cigarettes Per Day: 10 Years Smoked: 5 Substance Use Type: Marijuana service: No Current occupational status: employed Current occupation: right hand dominant Review of Systems Const Denies body aches and Denies fever(s) Eyes Reports no additional complaints ENT Denies nasal congestion Card Denies chest pain, Denies palpitations and Reports dyspnea on exertion Resp Denies pain on inspiration, Reports dyspnea on exertion and Denies wheezing GI Reports change in stool character Musc Denies joint swelling and Denies stiffness Skin/Breast Reports rash Neuro Reports no additional complaints Endo Denies palpitations Boom/Lymph Denies easy bleeding Aller/Immun Denies wheezing Physical Exam Vital Signs: Last Vital Signs Pulse 66 01/25/24 10:01 BP 118/70 01/25/24 10:01 Pulse Ox 97 01/25/24 10:01 Oxygen Delivery Method Room Air 01/25/24 10:01 BMI result Body Mass Index 29.3 Const General: cooperative and comfortable Orientation/consciousness: patient oriented x3 Limitations: no limitations HEENT Other: Dry mucous membranes Head: Yes normocephalic and Yes atraumatic Neck Neck: Yes supple Chest Chest palpation & inspection: normal inspection of the chest Resp Effort & Inspection: normal respiratory effort Auscultation: clear to auscultation bilaterally, no rales, no rhonchi and no wheezes Cardio Rate: regular rate Rhythm: regular rhythm Heart sounds: S1 normal heart sound present and S2 normal heart sound present GI Palpation (GI): Soft to palpation Skin Other: Significant livedo reticularis on her back, arms, thighs General skin exam: no rashes or lesions noted Neuro General: patient oriented x3 Extrem Other: Mildly cool fingertips Normal nailfold capillaroscopy No active synovitis General: Yes no clubbing, cyanosis or edema Results Reviewed Results Reviewed: ye, iodine, red dye, tree and shrub pollen, erythromycin base, azathioprine, stevioside, [green dye], [molds and smuts] (More??) Close Thyroid Ultrasound 01/14/[address] (Signed) Declan Abbasi - 01/02/24 Orbits/Face/Neck MRI (Signed) Seth Beckwith - 12/28/23 Chest CTA (Signed) Gurinder Luo - 10/12/23 Abdomen/Pelvis CT (Signed) Gurinder Luo - 10/12/[address] (Signed) Ana Jacobo - 08/11/23 Abdomen/Pelvis CT (Signed) Ana Jacobo - 08/11/23 Bone Densitometry (Signed) Fam Metcalf - 04/10/23 Chest CTA (Signed) Jono Villavicencio - 04/07/23 Chest X-Ray (Signed) Zaira Montiel - 01/28/23 Shoulder X-Ray (Signed) Jesusita Ragland - 01/23/23 Cervical Spine X-Ray (Signed) Jesusita Ragland - 01/23/23 Mammogram Screening (Signed) Meghann Fallon - 12/25/22 Orbits/Face/Neck MRI (Signed) Florentino Marie - 12/20/22 Pelvis MRI (Signed) Zaira Montiel - 11/17/22 Abdomen MRI (Signed) Zaira Montiel - 11/17/22 Lumbar Spine MRI (Signed) Florentino Marie - 10/27/22 Abdomen/Pelvis CT (Signed) Ana Jacobo - 09/26/[address] (Signed) Walter Corona - 09/24/22 Abdomen/Pelvis CT (Signed) Walter Corona - 09/24/22 Chest X-Ray (Signed) Dexter Hua - 09/24/22 Diagnostic Report, External 06/20/22 Shoulder MRI (Signed) Rj Howell - 05/09/22 Myocardial Perfusion Scan Nuc Med (Signed) Moshe Rhodes - 05/05/22 Shoulder X-Ray (Signed) Cassandra,Freddie - 04/24/22 Clavicle X-Ray (Signed) Cassandra,Freddie - 04/24/22 Thyroid Ultrasound (Signed) Brian Alcantara - 12/16/21 Orbits/Face/Neck MRI (Signed) Florentino Marie - 12/16/21 Cervical Spine X-Ray (Signed) Kevin Trujillonal - 09/26/21 Breast Ultrasound (Signed) MarRichy - 09/08/21 Mammogram Diagnostic (Signed) Richy Manuel - 09/08/21 Orbits/Face/Neck MRI (Signed) Seth Beckwith - 05/09/21 Head/Neck Ultrasound (Signed) CassandraFreddie - 03/04/21 Orbits/Face/Neck MRI (Signed) Fareed Moser - 01/18/21 Thyroid Biopsy Ultrasound (Cancelled) 11/18/20 Needle Aspiration Ultrasound 11/18/20 Cervical Spine X-Ray (Signed) CassandraFreddie petersen - 11/15/20 Thyroid Ultrasound (Signed) Walter Corona - 10/28/20 Orbits/Face/Neck MRI (Signed) Jimmy Orosco - 10/21/20 Thoracic Spine X-Ray (Signed) Zaira Montiel - 09/21/20 Elbow X-Ray (Signed) Zaira Montiel - 09/21/20 Elbow X-Ray (Signed) Zaira Montiel - 09/21/20 Orbits/Face/Neck MRI (Signed) Seth Beckwith - 09/02/20 Cervical Spine MRI (Signed) Seth Beckwith - 08/23/20 Launch?Image [place] [id number] CT Scan Report Signed Patient: Cookie Nielsen MR#: [id number] : 1965 Acct:[id number] Age/Sex: 58 / F ADM Date: 01/02/24 Loc: HO.CT Attending Dr: Jurgen Freed MD Ordering Physician: Jurgen Freed MD Date of Service: 01/02/24 Procedure(s): CT chest wo IV con Accession Number(s): [id number] cc: Jurgen Freed MD~ EXAMINATION: CT CHEST WITHOUT CONTRAST CLINICAL INFORMATION: Pneumonitis. COMPARISON: 09/24/2022 TECHNIQUE: Multidetector volumetric CT imaging of the chest was done. Axial MIP volume rendering provided. Sagittal and coronal reformatted images were obtained. This CT examination was performed using dose optimization techniques as appropriate, variously including the following: *Automated exposure control *Adjustment of mA and/or kV according to patient size (this includes techniques or standardized protocols for targeted exams where dose is matched to indication/reason for exam; i.e. extremities or head) *Use of iterative reconstruction technique DLP: 109 mGy-cm FINDINGS: LUNGS: 4 mm nodule right lower lobe on image 292. 4 mm nodule right lower lobe on image 284. No focal consolidation. Linear atelectasis versus scarring in the right lower lobe. Central airways are patent. MEDIASTINUM: Imaged thyroid gland is unremarkable. No bulky axillary, mediastinal or hilar lymphadenopathy. Great vessels are of normal caliber. Heart size is normal. No pericardial effusion. CORONARY ARTERY CALCIFICATION: None visualized on this study. PLEURA: No pleural effusion. UPPER ABDOMEN: Scattered hepatic cysts. Status post cholecystectomy OSSEOUS STRUCTURES: No destructive bone lesions. CT/CT chest wo IV con IMPRESSION: 4 mm pulmonary nodules. These nodules have been stable since 09/24/2022. No further routine follow-up is needed. Assessment & Plan Assessment & Plan (1) Systemic lupus erythematosus: Code(s): M32.9 - Systemic lupus erythematosus, unspecified Category: Medical Qualifiers: Systemic lupus erythematosus organ involvement: lung involvement Systemic lupus erythematosus type: unspecified Qualified Code(s): M32.13 - Lung involvement in systemic lupus erythematosus (2) Pneumonitis: Comment: resolved Code(s): J98.4 - Other disorders of lung Category: Medical (3) Pulmonary nodule: Code(s): R91.1 - Solitary pulmonary nodule Category: Medical Plan repeat CT chest in 1 yr F/U in 12 months Orders: Orders CT chest wo IV con Today R91.1 - Solitary pulmonary nodule Coding Level of Care Code Est Pt Level 4 (65588) Diagnoses Systemic lupus erythematosus with lung involvement, unspecified SLE type M32.13 Systemic lupus erythematosus organ involvement: lung involvement Systemic lupus erythematosus type: unspecified Pneumonitis J98.4 Pulmonary nodule R91.1 Time Spent (min) 16
== END 2024-01-25 10:32 | disposition home or self-care (01) ==
PROVIDERS: PCP Internal Medicine; Visit Provider Hospitalist
DX: M32.13 Lung involvement in systemic lupus erythematosus (principal); J98.4 Other disorders of lung; R91.1 Solitary pulmonary nodule
CPT/HCPCS: 99214

== ENCOUNTER → 2024-01-25 09:51 | Outpatient (BNVA) | payer OTHER, SELFPAY | PROVIDERS: PCP Internal Medicine; Visit Provider Hospitalist ==

== ENCOUNTER 2024-02-11 08:30 | Outpatient (REF) | payer OTHER, SELFPAY ==
[2024-02-11 08:51] LABS: MANUAL DIFF FLAG NO
[2024-02-11 08:59] LABS: Basophils Absolute Auto 0.1 X10*3/uL (0.0-0.2); Eosinophils Absolute Auto 0.3 X10*3/uL (0.0-0.4); Eosinophils Percent Auto 5.3 % (0-4); Hemoglobin 13.5 g/dl (12.0-16.0); Imm Gran Abs Auto 0.03 X10*3/uL (0.00-0.03); Imm Gran Pct Auto 0.5 % (0.0-0.4); Lymphocytes Absolute Auto 1.5 X10*3/uL (1.2-4.9); Lymphocytes Percent Auto 23.5 % (20-40); Mean Corpuscular HGB Conc 34.6 g/dl (31.0-35.0); Mean Corpuscular Volume 89.7 fL (80.0-98.0); Mean Platelet Volume 9.6 fL (9.4-12.3); Monocytes Absolute Auto 0.6 X10*3/uL (0.1-1.2); Neutrophils Absolute Auto 3.8 x10*3/uL (2.0-8.3); Neutrophils Percent Auto 60.7 % (45-73); Platelet Count 190 X10*3/uL (160-400); Red Blood Count 4.35 X10*6/uL (4.20-5.50); Red Cell Distribution Width 16.3 % (11.0-16.0); White Blood Count 6.3 X10*3/uL (4.8-10.8)
[2024-02-11 09:29] LABS: Alanine Aminotransferase 64 U/L (0-31); Albumin Level 3.9 g/dL (3.5-5.0); Alkaline Phosphatase 74 U/L (39-117); Anion Gap 12 (12-20); Aspartate Amino Transferase 31 U/L (5-31); Bilirubin Total 0.4 mg/dL (0.0-1.0); Blood Urea Nitrogen 14 mg/dL (9-16); C Reactive Protein < 0.10 mg/dL (< or = 0.50); Carbon Dioxide 26 mmol/L (22-29); Chloride 110 mmol/L (96-108); Estimated Glomerular Filt Rate 53; Glucose Random 94 mg/dL (60-115); Potassium 4.4 mmol/L (3.3-5.1); Sodium 144 mmol/L (135-145); Total Protein 6.3 g/dL (6.5-8.0)
[2024-02-11 09:38] LABS: Erythrocyte Sedimentation Rate 2 MM/HR (0-20)
== END 2024-02-11 08:31 | disposition home or self-care (01) ==
LOC: HO.LAB 08:30
PROVIDERS: PCP Internal Medicine; Visit Provider Student in an Organized Health Care Education/Training Program
DX: I30.0 Acute nonspecific idiopathic pericarditis (principal)
CPT/HCPCS: 36415; 80053; 85025; 85652; 86140

== ENCOUNTER 2024-02-28 08:19 | Outpatient (AMB) | payer OTHER, SELFPAY ==
--- NOTE | 2024-02-28 08:21 | A.OFFVIS_ITS ---
Vital Signs 02/28/24 08:23 Height 5 ft 2 in Weight 172 lb 6.424 oz BMI 31.5 BP 110/76 Blood Pressure Location Lt brachial Position Sitting Pulse 72 Pulse Source Pulse Oximeter Intake Visit Reasons: f/u MNG-conf Intake Note: Patient present today for MNG follow up visit. Health Careers Instructor Required: No Accompanied by: Spouse Allergies pollen extracts Allergy (Intermediate, Verified 02/28/24 08:26) Runny Nose atorvastatin Allergy (Mild, Verified 02/28/24 08:26) muscle pain blue dye Allergy (Mild, Verified 02/28/24 08:26) Unknown iodine Allergy (Mild, Verified 02/28/24 08:26) Itching red dye Allergy (Mild, Verified 02/28/24 08:26) Unknown tree and shrub pollen Allergy (Mild, Verified 02/28/24 08:26) Nasal congestion erythromycin base Allergy (Verified 02/28/24 08:26) Nausea and Vomiting azathioprine Adverse Reaction (Severe, Verified 02/28/24 08:26) vomiting and diarrhea stevioside [From Stevia] Adverse Reaction (Verified 02/28/24 08:26) Abdominal Pain green dye Allergy (Severe, Uncoded 02/28/24 08:26) Headache molds and smuts Allergy (Severe, Uncoded 02/28/24 08:26) hadache HPI Comments Details: 58 YO F with PMHx multinodular thyroid who is seen in F/U for a NTMNG. Was initially diagnosed with multinodular thyroid in 2020 with thyroid US revea ling bilateral thyroid nodules. She underwent FNA biopsy of a LMP 1.6 cm thyroid nodule 11/18/2020 with benign (bethesda category II) cytology. Thyroid US: 12/16/2021 SIZE: Measurements of the thyroid lobes and nodules are given in sagittal, anteroposterior and transverse dimensions respectively. Right Thyroid Lobe: 5.5 x 1.9 x 2.0 cm, volume 11.2 mL. Previously 5.3 x 2.3 x 1.8 cm, volume 11.5 mL. Parenchyma: The gland echotexture is homogeneous. Thyroid vascularity is normal. Left Thyroid Lobe: 4.7 x 2.1 x 2.3 cm, volume 11.4 mL. Previously 5.1 x 2.2 x 2.1 cm, volume 12.3 mL. Parenchyma: The gland echotexture is homogeneous. Thyroid vascularity is normal. Isthmus: 0.4 cm in maximum AP dimension. Previously 0.3 cm. Estimated total number of nodules greater than or equal to 1 cm: 2. Software Security Consultant nodules are described as follows: 1.? Location: Right mid. ?? ? Size: 0.45 x 0.25 x 0.42 cm, volume 0.03 mL. ?? ? Previously: 0.40 x 0.30 x 0.30 cm, volume 0.02 mL. ?? ? Nodule characteristics: ?? ? Composition: Spongiform (0). ?? ? Echogenicity: Anechoic (0). ?? ? Shape: Not taller than wide (0). ?? ? Margins: Smooth (0). ?? ? Echogenic Foci: None (0).? ACR TI-RADS total points: 0 Previous: 4 ?? ? ACR TI-RADS category: 1 Previous: 4 ? Significant change in size (>/= 20% in 2 dimensions and minimal increase of 2 mm or 50% or greater increase in volume): Yes ?? ? Change in features: Yes ?? ? Change in ACR TI-RADS risk category: Yes 2.? Location: Right superior. ?? ? Size: 0.40 x 0.21 x 0.34 cm, volume 0.02 mL. ?? ? Previously: Not seen on the previous study. ?? ? Nodule characteristics: ?? ? Composition: Cystic(0). ?? ? ACR TI-RADS total points: 0 ?? ? ACR TI-RADS category: 1 3.? Location: Left mid. ?? ? Size: 1.6 x 1.3 x 1.3 cm, volume 1.5 mL. ?? ? Previously: 1.6 x 1.0 x 1.2 cm, volume 1.0 mL. ?? ? Nodule characteristics: ?? ? Composition: Mixed cystic and solid (1). ?? ? Echogenicity: Hypoechoic (2). ?? ? Shape: Not taller than wide (0). ?? ? Margins: Smooth (0). ?? ? Echogenic Foci: Punctate echogenic foci (3). ? ACR TI-RADS total points: 6 Previous: 6 ?? ? ACR TI-RADS category: 4 Previous: 4 ? Significant change in size (>/= 20% in 2 dimensions and minimal increase of 2 mm or 50% or greater increase in volume): No ?? ? Change in features: No ?? ? Change in ACR TI-RADS risk category: No 4.? Location: Left mid. ?? ? Size: 1.0 x 0.56 x 0.73 cm, volume 0.21 mL. ?? ? Previously: 1.0 x 0.80 x 0.90 cm, volume 0.40 mL. ?? ? Nodule characteristics: ?? ? Composition: Mixed cystic and solid (1). ?? ? Echogenicity: Hypoechoic (2). ?? ? Shape: Not taller than wide (0). ?? ? Margins: Smooth (0). ?? ? Echogenic Foci: None (0).? ACR TI-RADS total points: 3 Previous: 3 ?? ? ACR TI-RADS category: 3 Previous: 3 ? Significant change in size (>/= 20% in 2 dimensions and minimal increase of 2 mm or 50% or greater increase in volume): No ?? ? Change in features: No ?? ? Change in ACR TI-RADS risk category: No NODES: No lymphadenopathy is seen in the tissue surrounding the thyroid gland. Labs: Laboratory Tests 12/15/21 08:50 TSH 0.72 Free T4 1.10 A recent thyroid ultrasound showed the left midpole nodule increasing in size PFSH Medical History (Updated 01/28/24 @ 20:36 by Jurgen Freed MD) Pulmonary nodule SVT (supraventricular tachycardia) Dyspnea Pneumonitis Pericardial effusion Esophageal candidiasis Ileitis Abdominal pain Inflammation of small intestine History of anesthesia complications Hx of chest pain Fusion of spine, cervical region TMJ syndrome Hx of gastritis Cervical radiculopathy Elevated cholesterol Osteoarthritis Hx of migraine headaches Multinodular thyroid Surgical History Hx of shoulder surgery S/P thyroid biopsy H/O colonoscopy History of esophagogastroduodenoscopy (EGD) History of spinal fusion Hx of dilation and curettage Hx of cholecystectomy Hx of tonsillectomy Hx of tubal ligation Family History Mother Diabetes Uterine cancer Hypertension Father Diabetes Hypertension Stroke Family/Other Colon cancer Social History Household Members: Spouse Housing: House Are you a primary specialist wound care to a significant other at home: No Do you presently have visiting nurse or other home services: No Alcohol intake: never Patient Tobacco Use Status: Former Tobacco user Tobacco use type: Cigarette Cigarettes Per Day: 10 Years Smoked: 5 Substance Use Type: Marijuana service: No Current occupational status: employed Current occupation: right hand dominant Physical Exam Vital Signs: Last Vital Signs Pulse 72 02/28/24 08:23 BP 110/76 02/28/24 08:23 BMI result Body Mass Index 31.5 Const Other: Thyroid gland is of normal size weighs about 15 g . There are no thyroid nodules palpated. There is no cervical adenopathy palpated Assessment & Plan Assessment & Plan (1) Multinodular thyroid: Code(s): E04.2 - Nontoxic multinodular goiter Category: Medical Plan: This 58-year-old white female with a history of multinodular goiter status post FNA of left midpole nodule with benign cytology. She appears to be clinically and biochemically euthyroid. Recent thyroid ultrasound showed questionable inc rease left midpole nodule size Plan is have patient follow up with Dr. Edwards an rock cutter in practice was expertise and thyroid ultrasound and biopsy to determine whether the left midpole nodule needs to be biopsied Orders: Orders Free T4 (Free Thyroxine) Today E04.2 - Nontoxic multinodular goiter Thyroid Stimulating Hormone Today E04.2 - Nontoxic multinodular goiter Coding Level of Care Code Est Pt Level 3 (07603) Diagnoses Multinodular thyroid E04.2
[2024-02-28 08:23] VITALS: BP 110/76; PULSE 72; BMI 31.5
== END 2024-02-28 08:44 | disposition home or self-care (01) ==
PROVIDERS: PCP Internal Medicine; Visit Provider Internal Medicine Endocrinology, Diabetes & Metabolism
DX: E04.2 Nontoxic multinodular goiter (principal)
CPT/HCPCS: 99213

== ENCOUNTER 2024-02-28 08:19 | Outpatient (REF) | payer OTHER, SELFPAY ==
[2024-02-28 10:36] LABS: Free T4 (Free Thyroxine) 0.79 ng/dL (0.71-1.85); Thyroid Stimulating Hormone 0.57 uIU/mL (0.32-4.0)
== END 2024-02-28 08:20 | disposition home or self-care (01) ==
LOC: HO.LAB 08:19
PROVIDERS: PCP Internal Medicine; Visit Provider Internal Medicine Endocrinology, Diabetes & Metabolism
DX: E04.2 Nontoxic multinodular goiter (principal)
CPT/HCPCS: 36415; 84439; 84443

== ENCOUNTER → 2024-02-29 10:00 | Outpatient (BNV) | payer OTHER, SELFPAY | PROVIDERS: PCP Internal Medicine; Visit Provider Internal Medicine | DX: Z12.31 Encounter for screening mammogram for malignant neoplasm of breast (principal) | CPT/HCPCS: 77063; 77067 ==

== ENCOUNTER 2024-02-29 10:02 | Outpatient (REF) | payer OTHER, SELFPAY ==
--- NOTE | ~2024-02-29 | MM_ITS ---
EXAMINATION: MM SCREENING DIGITAL BREAST TOMOSYNTHESIS, BILATERAL CLINICAL INFORMATION: Screening. Asymptomatic. COMPARISON: Mammography: Comparison is made with available priors TECHNIQUE: Digital breast mammography with tomosynthesis is performed in both the craniocaudal and mediolateral oblique views along with computer-aided detection (CAD). FINDINGS: There are scattered areas of fibroglandular density (ACR BI-RADS breast composition Category b). There are no significant masses, abnormal calcifications, or other abnormalities. MM/MM tomosynthesis screening BI IMPRESSION: No mammographic evidence of malignancy. ASSESSMENT: BI-RADS BI-RADS 1 - Negative RECOMMENDATION: Routine annual mammography screening. 1 year F/U This examination should not preclude the clinical evaluation of a suspicious palpable abnormality. This patient's information was entered into a reminder system with a target due date for their next mammogram. Electronically signed by: Colleen Oliavres DO 03/12/2024 01:22 PM EDT
== END 2024-02-29 10:03 | disposition home or self-care (01) ==
LOC: HO.MAMMO 10:02
PROVIDERS: PCP Internal Medicine; Visit Provider Internal Medicine
DX: Z12.31 Encounter for screening mammogram for malignant neoplasm of breast (principal)
CPT/HCPCS: 77063; 77067

== ENCOUNTER 2024-03-04 14:53 | Outpatient (REF) | payer OTHER, SELFPAY ==
[2024-03-04 15:23] LABS: MANUAL DIFF FLAG NO
[2024-03-04 17:01] LABS: Basophils Absolute Auto 0.1 X10*3/uL (0.0-0.2); Basophils Percent Auto 0.8 % (0-2); Eosinophils Absolute Auto 0.3 X10*3/uL (0.0-0.4); Eosinophils Percent Auto 4.8 % (0-4); Hematocrit 41.4 % (37.0-47.0); Hemoglobin 14.1 g/dl (12.0-16.0); Imm Gran Abs Auto 0.03 X10*3/uL (0.00-0.03); Imm Gran Pct Auto 0.5 % (0.0-0.4); Lymphocytes Absolute Auto 1.8 X10*3/uL (1.2-4.9); Lymphocytes Percent Auto 26.5 % (20-40); Mean Corpuscular HGB Conc 34.1 g/dl (31.0-35.0); Mean Corpuscular Hemoglobin 31.1 pg (27.0-33.0); Mean Corpuscular Volume 91.4 fL (80.0-98.0); Mean Platelet Volume 10.7 fL (9.4-12.3); Monocytes Absolute Auto 0.6 X10*3/uL (0.1-1.2); Monocytes Percent Auto 8.3 % (2-11); Neutrophils Absolute Auto 3.9 x10*3/uL (2.0-8.3); Neutrophils Percent Auto 59.1 % (45-73); Platelet Count 201 X10*3/uL (160-400); Red Blood Count 4.53 X10*6/uL (4.20-5.50); Red Cell Distribution Width 15.5 % (11.0-16.0); White Blood Count 6.6 X10*3/uL (4.8-10.8)
[2024-03-04 17:40] LABS: Alanine Aminotransferase 47 U/L (0-31); Albumin Level 4.1 g/dL (3.5-5.0); Alkaline Phosphatase 77 U/L (39-117); Anion Gap 12 (12-20); Aspartate Amino Transferase 33 U/L (5-31); Bilirubin Total 0.4 mg/dL (0.0-1.0); Blood Urea Nitrogen 19 mg/dL (9-16); C Reactive Protein < 0.04 mg/dL (< or = 0.50); Calcium 9.4 mg/dL (8.4-10.2); Carbon Dioxide 25 mmol/L (22-29); Chloride 111 mmol/L (96-108); Estimated Glomerular Filt Rate 57; Glucose Random 61 mg/dL (60-115); Potassium 4.5 mmol/L (3.3-5.1); Sodium 143 mmol/L (135-145); Total Protein 6.7 g/dL (6.5-8.0)
[2024-03-04 17:49] LABS: Erythrocyte Sedimentation Rate 2 MM/HR (0-20)
== END 2024-03-04 14:54 | disposition home or self-care (01) ==
LOC: HO.LAB 14:53
PROVIDERS: PCP Pediatrics Adolescent Medicine; Visit Provider Student in an Organized Health Care Education/Training Program
DX: I30.0 Acute nonspecific idiopathic pericarditis (principal)
CPT/HCPCS: 36415; 80053; 85025; 85652; 86140

== ENCOUNTER 2024-03-05 12:23 | Outpatient (AMB) | payer OTHER, SELFPAY ==
--- NOTE | 2024-03-05 12:41 | A.OFFVIS_ITS ---
Vital Signs 03/05/24 12:45 Height 5 ft 2 in Weight 173 lb 8.061 oz BMI 31.7 BP 112/62 Blood Pressure Location Lt brachial Position Sitting Pulse 72 Pulse Source Pulse Oximeter Pulse Oximetry (%) 94 Oxygen Delivery Method Room Air Intake Visit Reasons: Idiopathic pericarditis/CM Intake Note: Patient presents for Idiopathic Pericarditis. Allergies pollen extracts Allergy (Intermediate, Verified 03/05/24 12:44) Runny Nose atorvastatin Allergy (Mild, Verified 03/05/24 12:44) muscle pain blue dye Allergy (Mild, Verified 03/05/24 12:44) Unknown iodine Allergy (Mild, Verified 03/05/24 12:44) Itching red dye Allergy (Mild, Verified 03/05/24 12:44) Unknown tree and shrub pollen Allergy (Mild, Verified 03/05/24 12:44) Nasal congestion erythromycin base Allergy (Verified 03/05/24 12:44) Nausea and Vomiting azathioprine Adverse Reaction (Severe, Verified 03/05/24 12:44) vomiting and diarrhea stevioside [From Stevia] Adverse Reaction (Verified 03/05/24 12:44) Abdominal Pain green dye Allergy (Severe, Uncoded 02/28/24 08:26) Headache molds and smuts Allergy (Severe, Uncoded 02/28/24 08:26) hadache Medication List - Last Reconciled 03/05/24 by Jeison Matta MD acyclovir 400 mg PO BID colchicine 0.6 mg PO BID cyclobenzaprine 10 mg PO BID cyclosporine 0.05% (Restasis) 1 drp ophthalmic (eye) Q12H dicyclomine 20 mg PO BID PRN hydroxychloroquine 300 mg (1.5 x 200 mg) PO DAILY Kineret (anakinra) 100 mg (0.67 mL) subcut DAILY NS lorazepam 0.5 mg PO DAILY PRN metoclopramide HCl 10 mg PO TID metoprolol succinate ER 100 mg PO DAILY omeprazole 40 mg PO DAILY ondansetron HCl 8 mg PO DAILY 15 days rosuvastatin 10 mg PO BEDTIME rosuvastatin 5 mg PO DAILY triamcinolone acetonide (Nasacort Allergy) 1 spray intranasal DAILY verapamil ER 120 mg PO DAILY zolmitriptan (Zomig) 1 spray intranasal DAILY PRN zolmitriptan 5 mg PO DAILY PRN HPI Comments Details: This is a 58-year-old female with idiopathic pericarditis who presents for follow-up. She is on Kineret daily injection. She states that doing well overall. Improving day-by-day. Getting her strength back. She goes up and down the stairs at home, she does plenty of housework. She walks 2 miles a day. She states that she still not able to go back to work due to spacing out sometimes. She states that she has a rash today on her chest and back. Initial history: This is a 58 year old female previously diagnosed with lupus by Dr. Sorto who presents for follow-up. Over the last year patient presented to the hospital multiple times for pericarditis. She has been on multiple doses of prednisone. Last dose of prednisone was October 06. Patient does not want to go back to taking prednisone due to significant weight gain. She has lost some weight since she stopped the prednisone. She stated that colchicine was started by her stroke belt sander operator at [facility] with some improvement. She stated that hydroxychloroquine has generally helped her. When she was off of it she felt much worse with worsening fatigue and body aches. Her main complaint today is her chest discomfort, shortness of breath, chest pain especially when taking a deep breath and lying on her back. She sleeps sitting down. She has noted mildly erythematous rash on her extremities and torso. She has mildly cool fingers and toes but never developed any digital ulcers. She denies any fevers. She was evaluated by stabilizing machine operator due to recurrent diarrhea and GI symptoms. She was told that she has bowel inflammation and there is some suspicion of IBD. Her pericarditis symptoms and bowel symptoms improve when she is on prednisone. She had a lip biopsy twice and it was negative for Sjogren's. [facility] Medical History Pulmonary nodule SVT (supraventricular tachycardia) Dyspnea Pneumonitis Pericardial effusion Esophageal candidiasis Ileitis Abdominal pain Inflammation of small intestine History of anesthesia complications Hx of chest pain Fusion of spine, cervical region TMJ syndrome Hx of gastritis Cervical radiculopathy Elevated cholesterol Osteoarthritis Hx of migraine headaches Multinodular thyroid Surgical History Hx of shoulder surgery S/P thyroid biopsy H/O colonoscopy History of esophagogastroduodenoscopy (EGD) History of spinal fusion Hx of dilation and curettage Hx of cholecystectomy Hx of tonsillectomy Hx of tubal ligation Family History Mother Diabetes Uterine cancer Hypertension Father Diabetes Hypertension Stroke Family/Other Colon cancer Social History Household Members: Spouse Housing: House Are you a primary healthcare applications analyst to a significant other at home: No Do you presently have visiting nurse or other home services: No Alcohol intake: never Patient Tobacco Use Status: Former Tobacco user Tobacco use type: Cigarette Cigarettes Per Day: 10 Years Smoked: 5 Substance Use Type: Marijuana service: No Current occupational status: employed Current occupation: right hand dominant Review of Systems Card Denies chest pain Musc Denies arthralgias, Denies joint swelling and Denies stiffness Skin/Breast Reports rash Neuro Details: Spacing out Physical Exam Vital Signs: Last Vital Signs Pulse 72 03/05/24 12:45 BP 112/62 03/05/24 12:45 Pulse Ox 94 03/05/24 12:45 Oxygen Delivery Method Room Air 03/05/24 12:45 BMI result Body Mass Index 31.7 Const General: cooperative, healthy appearing and comfortable Nutritional Appearance: obese Orientation/consciousness: patient oriented x3 Limitations: no limitations HEENT Head: Yes normocephalic and Yes atraumatic Resp Effort & Inspection: normal respiratory effort and able to speak in complete sentences Cardio Rate: regular rate Rhythm: regular rhythm Skin Other: Significant livedo reticularis on her back, arms, thighs Neuro General: patient oriented x3 Extrem Other: Normal nailfold capillaroscopy No active synovitis Assessment & Plan Assessment & Plan (1) Recurrent idiopathic pericarditis: Comment: Hydroxychloroquine minimal effective Colchicine minimally effective Azathioprine not tolerated kineret 11/2023 effective Code(s): I30.0 - Acute nonspecific idiopathic pericarditis Category: Medical Plan: This is a 58-year-old female with recurrent idiopathic pericarditis who presents for follow-up. On anakinra 100 mg subcutaneously daily. She feels much better overall. Improved generalized fatigue, body aches, tachycardia, chest pain improved. Has not noted any side effects related to anakinra. Her white count, CRP and ESR normalized Continue anakinra, Continue with hydroxychloroquine. Colchicine has been discontinued. We will discuss reducing hydroxychloroquine and tapering it off subsequent visits Patient wonders about going back to work. From a rheumatology point of view I do not see a good reason not to. Patient however states that she is still relatively fatigued and she still spaces out I suggested neurology evaluation. Patient would like to wait Labs before next visit in 4 months Plan I spent 22 minutes reviewing patient's chart, evaluating patient, ordering diagnostic workup, counseling patient and documenting in the chart Orders: Orders Erythrocyte Sedimentation Rate 4 Months I30.0 - Acute nonspecific idiopathic pericarditis Complete Blood Count Auto Diff 4 Months I30.0 - Acute nonspecific idiopathic pericarditis Comprehensive Met. Panel 4 Months I30.0 - Acute nonspecific idiopathic pericarditis C Reactive Protein 4 Months I30.0 - Acute nonspecific idiopathic pericarditis Coding Level of Care Code Est Pt Level 4 (55046) Diagnoses Recurrent idiopathic pericarditis I30.0
[2024-03-05 12:45] VITALS: BP 112/62; PULSE 72; O2SAT 94; BMI 31.7
== END 2024-03-05 13:07 | disposition home or self-care (01) ==
PROVIDERS: PCP Internal Medicine; Visit Provider Student in an Organized Health Care Education/Training Program
DX: I30.0 Acute nonspecific idiopathic pericarditis (principal)
CPT/HCPCS: 99214

== ENCOUNTER → 2024-03-05 12:23 | Outpatient (BNVA) | payer OTHER, SELFPAY | PROVIDERS: PCP Internal Medicine; Visit Provider Student in an Organized Health Care Education/Training Program ==

== ENCOUNTER 2024-04-17 08:36 | Outpatient (REF) | payer OTHER, SELFPAY ==
[2024-04-17 11:09] LABS: Troponin-I High Sensitivity < 2.7 ng/L (<3.5-17.0)
[2024-04-17 11:10] LABS: Cortisol Random 3.8 ug/dL
== END 2024-04-17 08:37 | disposition home or self-care (01) ==
LOC: HO.XRAY 08:36
PROVIDERS: PCP Internal Medicine; Visit Provider Hospitalist
DX: R06.09 Other forms of dyspnea (principal); R53.83 Other fatigue
CPT/HCPCS: 36415; 71046; 82533; 84484

== ENCOUNTER 2024-04-17 08:36 | Outpatient (AMB) | payer OTHER, SELFPAY ==
[2024-04-17 08:47] VITALS: BP 142/90; PULSE 86; O2SAT 98
--- NOTE | 2024-04-17 08:47 | A.OFFVIS_ITS ---
Vital Signs 04/17/24 08:47 Height 5 ft 2 in BMI Reason not done Patient refused/unable BP 142/90 H Blood Pressure Location Rt brachial Position Sitting Pulse 86 Pulse Source Pulse Oximeter Pulse Oximetry (%) 98 Oxygen Delivery Method Room Air Intake Visit Reasons: shortness of breath post covid Allergies pollen extracts Allergy (Intermediate, Verified 04/17/24 08:49) Runny Nose atorvastatin Allergy (Mild, Verified 04/17/24 08:49) muscle pain blue dye Allergy (Mild, Verified 04/17/24 08:49) Unknown iodine Allergy (Mild, Verified 04/17/24 08:49) Itching red dye Allergy (Mild, Verified 04/17/24 08:49) Unknown tree and shrub pollen Allergy (Mild, Verified 04/17/24 08:49) Nasal congestion erythromycin base Allergy (Verified 04/17/24 08:49) Nausea and Vomiting azathioprine Adverse Reaction (Severe, Verified 04/17/24 08:49) vomiting and diarrhea stevioside [From Stevia] Adverse Reaction (Verified 04/17/24 08:49) Abdominal Pain green dye Allergy (Severe, Uncoded 04/17/24 08:49) Headache molds and smuts Allergy (Severe, Uncoded 04/17/24 08:49) hadache HPI Comments Details: The patient is a 58 year woman now with a diagnosis of systemic lupus erythematous. She was having issues with a recurrent effusion and she was treated effectively for that. She recently saw a new security control center operator. She is currently getting associated with them getting additional blood work and also looking to starting additional medications to try to control the inflammatory process. The last blood [place] [address] and also had a significant elevation in sedimentation rate above 70 and a significant CRP. There significant amount of inflammation going on the body. She has had plenty of dosages of prednisone. In addition to that she had been on chronic prednisone for some time and she did not like the feeling. Constitute have significant cushingoid appearance and cushingoid symptoms. Therefore she is trying to avoid prednisone at all cost. The patient did have a CTA done sometime in september which I personally reviewed. She has been having significant tachycardia she did follow-up with cardiology for that. The patient CTA was personally by me. She does have evidence of ground-glass opacities suggesting some degree of pneumonitis likely from the connective tissue disease. In addition to that she did have an echocardiogram which we reviewed demonstrating sinus tachycardia with normal function. Pulmonary pressures were stated to be within normal limits. We did go for brief walking oximetry during the office visit. The patient became tachycardic up to 130 beats per minute with minimal activity. Pulse ox stable at 98%. Therefore, explained to her that his shortness of breath she is feeling right now is primarily due to her significant inflammation and tachyarrhythmia. At this point I do not believe inhalers will help her respiratory symptoms. Although, I do believe that based on the fact that is not clear why she has SVT but the current heart rate is affecting her respiratory symptoms and would not be unreasonable to try small dose of metoprolol to try to settle down the heart rate in order to feel less symptomatic. I will talk to her plaster form maker about that. 01/25/2024 the patient is here for a pulmonary follow-up visit. The patient is doing significantly better did undergo a repeat CT scan of the chest which I personally reviewed. There appears to be small 4 mm pulmonary nodule. The ground-glass opacities have significantly improved. Otherwise her CT scan is back to her baseline. Heart rate is also better. She is following up with Cardiology. Her medications are being adjusted. Clinically the patient is doing well. She did not have PFTs but at this point clinically she is doing well we can hold off at this time. The patient will return in a year after follow-up CT scan. If she develops any worsening symptoms prior to that she will call for an earlier assessment. 04/17/2024 the patient is here for pulmonary sick visit. Apparently back in December she developed COVID. Afterwards she started developing worsening shortness breath worsening tachycardia. She is on multiple rate controlling agents already. She was open that after a few months her symptoms subside but she still having hard time. She also complains of daytime drowsiness and fatigue. She does sleep all night and she does wake up tired. I did offer her sleep study but she will think about it and she lost her to documented she is having any apneic episodes. I did go be reasonable at some point to do a home sleep study. Specially with her tachycardia issues. She will let me know. In the meantime she also will be a good candidate for pulmonary rehabilitation post post COVID syndrome. Appears to have some degree of drowsiness will have blood work done including cortisol level and also check her cardiac enzymes. The patient also may consider a stimulant as long as she can not tolerated to help her with chronic fatigue after viral syndrome sometimes a small dose of Provigil or Nuvigil help improve her symptoms. She is going to follow-up with endocrinology as well as she does have thoughts thyroid disease and she can follow-up with her cortisol levels. Rhino I do believe that she is able to exercise without hurting herself. She is able to did do it online through the pulmonary wellness online program or she can do it in person year at [place]. [facility] Medical History (Updated 04/17/24 @ 19:28 by Jurgen Freed MD) Fatigue Pulmonary nodule SVT (supraventricular tachycardia) Dyspnea Pneumonitis Pericardial effusion Esophageal candidiasis Ileitis Abdominal pain Inflammation of small intestine History of anesthesia complications Hx of chest pain Fusion of spine, cervical region TMJ syndrome Hx of gastritis Cervical radiculopathy Elevated cholesterol Osteoarthritis Hx of migraine headaches Multinodular thyroid Surgical History Hx of shoulder surgery S/P thyroid biopsy H/O colonoscopy History of esophagogastroduodenoscopy (EGD) History of spinal fusion Hx of dilation and curettage Hx of cholecystectomy Hx of tonsillectomy Hx of tubal ligation Family History Mother Diabetes Uterine cancer Hypertension Father Diabetes Hypertension Stroke Family/Other Colon cancer Social History Household Members: Spouse Housing: House Are you a primary healthcare applications analyst to a significant other at home: No Do you presently have visiting nurse or other home services: No Alcohol intake: never Patient Tobacco Use Status: Former Tobacco user Tobacco use type: Cigarette Cigarettes Per Day: 10 Years Smoked: 5 Substance Use Type: Marijuana service: No Current occupational status: employed Current occupation: right hand dominant Review of Systems Const Reports daytime sleepiness, Reports fatigue and Denies fever(s) Eyes Reports no additional complaints ENT Denies nasal congestion Card Denies chest pain, Reports palpitations and Reports dyspnea on exertion Resp Denies pain on inspiration, Reports dyspnea on exertion and Denies wheezing GI Reports change in stool character Musc Denies joint swelling and Denies stiffness Skin/Breast Reports rash Neuro Reports no additional complaints Endo Reports fatigue and Reports palpitations Boom/Lymph Denies easy bleeding Aller/Immun Denies wheezing Physical Exam Vital Signs: Last Vital Signs Pulse 86 04/17/24 08:47 BP 142/90 H 04/17/24 08:47 Pulse Ox 98 04/17/24 08:47 Oxygen Delivery Method Room Air 04/17/24 08:47 Const General: cooperative and comfortable Orientation/consciousness: patient oriented x3 Limitations: no limitations HEENT Other: Dry mucous membranes Head: Yes normocephalic and Yes atraumatic Neck Neck: Yes supple Chest Chest palpation & inspection: normal inspection of the chest Resp Effort & Inspection: normal respiratory effort Auscultation: clear to auscultation bilaterally, no rales, no rhonchi and no wheezes Cardio Rate: regular rate Rhythm: regular rhythm Heart sounds: S1 normal heart sound present and S2 normal heart sound present GI Palpation (GI): Soft to palpation Skin Other: Significant livedo reticularis on her back, arms, thighs General skin exam: no rashes or lesions noted Neuro General: patient oriented x3 Extrem Other: Mildly cool fingertips Normal nailfold capillaroscopy No active synovitis General: Yes no clubbing, cyanosis or edema Assessment & Plan Assessment & Plan (1) Systemic lupus erythematosus: Code(s): M32.9 - Systemic lupus erythematosus, unspecified Category: Medical Qualifiers: Systemic lupus erythematosus organ involvement: lung involvement Systemic lupus erythematosus type: unspecified Qualified Code(s): M32.13 - Lung involvement in systemic lupus erythematosus (2) Pneumonitis: Comment: resolved Code(s): J98.4 - Other disorders of lung Category: Medical (3) Pulmonary nodule: Code(s): R91.1 - Solitary pulmonary nodule Category: Medical (4) Dyspnea: Code(s): R06.00 - Dyspnea, unspecified Category: Medical Qualifiers: Dyspnea type: dyspnea on exertion Qualified Code(s): R06.09 - Other forms of dyspnea (5) Fatigue: Code(s): R53.83 - Other fatigue Category: Medical Qualifiers: Fatigue type: unspecified Qualified Code(s): R53.83 - Other fatigue Category: Medical Plan bloodwork CXR if no better Pulmonary rosalee (on line). No limitations consider sleep study consider modafinil/nuvigil if no better F/U in 6 months Orders: Orders Troponin-I High Sensitivity Today R06.09 - Other forms of dyspnea Cortisol Random Today R53.83 - Other fatigue XR chest 2V Today R53.83 - Other fatigue Coding Level of Care Code Est Pt Level 4 (56224) Diagnoses Systemic lupus erythematosus with lung involvement, unspecified SLE type M32.13 Systemic lupus erythematosus organ involvement: lung involvement Systemic lupus erythematosus type: unspecified Pneumonitis J98.4 Pulmonary nodule R91.1 Dyspnea on exertion R06.09 Dyspnea type: dyspnea on exertion Fatigue, unspecified type R53.83 Fatigue type: unspecified Post-acute COVID-19 syndrome U09.9 Time Spent (min) 17
== END 2024-04-17 09:13 | disposition home or self-care (01) ==
PROVIDERS: PCP Internal Medicine; Visit Provider Hospitalist
DX: M32.13 Lung involvement in systemic lupus erythematosus (principal); J98.4 Other disorders of lung; R91.1 Solitary pulmonary nodule; R06.09 Other forms of dyspnea; R53.83 Other fatigue; U09.9 Post COVID-19 condition, unspecified
CPT/HCPCS: 99214

== ENCOUNTER 2024-05-05 08:52 | Outpatient (AMB) | payer OTHER, SELFPAY ==
[2024-05-05 08:54] VITALS: BP 142/92; PULSE 46; BMI 30.7
--- NOTE | 2024-05-05 08:54 | MHC.OFFVIS ---
Vital Signs 05/05/24 08:54 Height 5 ft 2 in Weight 168 lb BMI 30.7 BP 142/92 H Blood Pressure Location Lt brachial Position Sitting Pulse 46 L Pulse Source Pulse Oximeter Intake Visit Reasons: f/u MNG Intake Note: Patient present today for MNG follow up visit. 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 Accompanied by: Spouse Allergies pollen extracts Allergy (Intermediate, Verified 05/05/24 08:58) Runny Nose atorvastatin Allergy (Mild, Verified 05/05/24 08:58) muscle pain blue dye Allergy (Mild, Verified 05/05/24 08:58) Unknown iodine Allergy (Mild, Verified 05/05/24 08:58) Itching red dye Allergy (Mild, Verified 05/05/24 08:58) Unknown tree and shrub pollen Allergy (Mild, Verified 05/05/24 08:58) Nasal congestion erythromycin base Allergy (Verified 05/05/24 08:58) Nausea and Vomiting azathioprine Adverse Reaction (Severe, Verified 05/05/24 08:58) vomiting and diarrhea stevioside [From Stevia] Adverse Reaction (Verified 05/05/24 08:58) Abdominal Pain green dye Allergy (Severe, Uncoded 05/05/24 08:58) Headache molds and smuts Allergy (Severe, Uncoded 05/05/24 08:58) hadache Medication List - Last Reconciled 05/05/24 by Sydney Edwards MD acyclovir 400 mg PO BID cyclobenzaprine 10 mg PO BID cyclosporine 0.05% (Restasis) 1 drp ophthalmic (eye) Q12H dicyclomine 20 mg PO BID PRN hydroxychloroquine 300 mg (1.5 x 200 mg) PO DAILY Kineret (anakinra) 100 mg (0.67 mL) subcut DAILY NS lorazepam 0.5 mg PO DAILY PRN metoclopramide HCl 10 mg PO TID metoprolol succinate ER 100 mg PO DAILY omeprazole 40 mg PO DAILY ondansetron HCl 8 mg PO DAILY 15 days rosuvastatin 10 mg PO BEDTIME sumatriptan 20 mg/actuation mg intranasal triamcinolone acetonide (Nasacort Allergy) 1 spray intranasal DAILY verapamil ER 120 mg PO DAILY HPI Comments Details: 58 YO F with PMHx multinodular thyroid who is seen in F/U for a NTMNG. She also brought to my attention her low cortisol level. HPI from prior visit Was initially diagnosed with multinodular thyroid in 2020 with thyroid US revealing bilateral thyroid nodules. She underwent FNA biopsy of a LMP 1.6 cm thyroid nodule 11/18/2020 with benign (bethesda category II) cytology. Ultrasound 11/2021 showed stable size of the left midpole 1.6 cm nodule. Most recent thyroid ultrasound 12/2023 showed significant increase in the size of the left midpole nodule now measuring 2 cm in the maximum dimension. This meets criteria for repeat FNA. Reports difficulty swallowing with some dry foods. No pressure sensation when she lays down flat. Low cortisol low cortisol levels of 3.8 at 9 AM on 04/17/2024 Has had 2 consucossions , once in high school, once in 2020 when she fell down the stairs, pretty severe head to her head. Gained 20 lbs since 2022 but in 2023 weight stable Complains of nausea daily Reports light headednes and dizziness Got prednsione tapers 4 times for pericarditis in early 2023 off any kind of steroids since September . Physical exam General: sitting comfortably in no acute distress HEENT: normocephalic/atraumatic, EOM intact, moist oral mucosa Neck: supple, palpable 2 cm left-sided nodule Cardiac: normal heart sounds Pulm: normal breath sounds B/L, no added breath sounds Abd: not distended, no tenderness Extremities: no edema, no signs of myxedema Neuro: AAO x3, Speech: normal, no facial droop, moving all 4 extremities Imaging US THYROID 01/14/24 CLINICAL INFORMATION: Goiter, left thyroid benign biopsy October 2020. COMPARISON: Thyroid ultrasound 12/16/2021, 10/28/2020. TECHNIQUE: Linear transducer grayscale and color Doppler examination with attention to the region of the thyroid. FINDINGS: SIZE: Measurements of the thyroid lobes and nodules are given in sagittal, anteroposterior and transverse dimensions respectively. Right Thyroid Lobe: 5.2 x 1.4 x 2.0 cm, volume 7.2 mL. Parenchyma: The gland echotexture is heterogeneous. Thyroid vascularity is normal. Left Thyroid Lobe: 4.5 x 2.0 x 2.3 cm, volume 10.7 mL. Parenchyma: The gland echotexture is heterogeneous. Thyroid vascularity is normal. Isthmus: 0.5 cm in maximum AP dimension. Estimated total number of nodules greater than or equal to 1 cm: 2. Cap Inspector nodules are described as follows: 1. Location: Right mid to lower. Size: 1.0 x 0.7 x 0.7 cm, volume 0.2 mL. Previously 0.5 x 0.3 x 0.4 cm, volume 0.03 mL. Nodule characteristics: Composition: Mixed cystic and solid (1). Echogenicity: Hypoechoic (2). Shape: Not taller than wide (0). Margins: Ill-defined (0). Echogenic Foci: None (0). ACR TI-RADS total points: 3, previously 0 ACR TI-RADS category: 3, previously 1 2. Location: Left mid. Size: 2.0 x 1.7 x 1.5 cm, volume 2.5 mL. Previously 1.6 x 1.3 x 1.3 cm, volume 1.5 mL. Nodule characteristics: Composition: Solid (2). Echogenicity: Hypoechoic (2). Shape: Taller than wide (3). Margins: Ill-defined (0). Echogenic Foci: None (0). ACR TI-RADS total points: 7, previously 6 ACR TI-RADS category: 5, previously 4 3. Location: Left lower. Size: 0.8 x 0.6 x 0.7 cm, volume 0.2 mL. Previously 1.0 x 0.6 x 0.7 cm, volume 0.2 mL. Nodule characteristics: Composition: Solid (2). Echogenicity: Hypoechoic (2). Shape: Not taller than wide (0). Margins: Ill-defined (0). Echogenic Foci: None (0). ACR TI-RADS total points: 4, previously 3 ACR TI-RADS category: 4, previously 3 NODES: No lymphadenopathy is seen in the tissue surrounding the thyroid gland. US/US thyroid IMPRESSION: A 2.0 cm left mid TR 5 thyroid nodule has increased in size and meets criteria for biopsy. Fine-needle aspiration recommended. Thyroid US: 12/16/2021 SIZE: Measurements of the thyroid lobes and nodules are given in sagittal, anteroposterior and transverse dimensions respectively. Right Thyroid Lobe: 5.5 x 1.9 x 2.0 cm, volume 11.2 mL. Previously 5.3 x 2.3 x 1.8 cm, volume 11.5 mL. Parenchyma: The gland echotexture is homogeneous. Thyroid vascularity is normal. Left Thyroid Lobe: 4.7 x 2.1 x 2.3 cm, volume 11.4 mL. Previously 5.1 x 2.2 x 2.1 cm, volume 12.3 mL. Parenchyma: The gland echotexture is homogeneous. Thyroid vascularity is normal. Isthmus: 0.4 cm in maximum AP dimension. Previously 0.3 cm. Estimated total number of nodules greater than or equal to 1 cm: 2. Cap Inspector nodules are described as follows: 1.? Location: Right mid. ?? ? Size: 0.45 x 0.25 x 0.42 cm, volume 0.03 mL. ?? ? Previously: 0.40 x 0.30 x 0.30 cm, volume 0.02 mL. ?? ? Nodule characteristics: ?? ? Composition: Spongiform (0). ?? ? Echogenicity: Anechoic (0). ?? ? Shape: Not taller than wide (0). ?? ? Margins: Smooth (0). ?? ? Echogenic Foci: None (0).? ACR TI-RADS total points: 0 Previous: 4 ?? ? ACR TI-RADS category: 1 Previous: 4 ? Significant change in size (>/= 20% in 2 dimensions and minimal increase of 2 mm or 50% or greater increase in volume): Yes ?? ? Change in features: Yes ?? ? Change in ACR TI-RADS risk category: Yes 2.? Location: Right superior. ?? ? Size: 0.40 x 0.21 x 0.34 cm, volume 0.02 mL. ?? ? Previously: Not seen on the previous study. ?? ? Nodule characteristics: ?? ? Composition: Cystic(0). ?? ? ACR TI-RADS total points: 0 ?? ? ACR TI-RADS category: 1 3.? Location: Left mid. ?? ? Size: 1.6 x 1.3 x 1.3 cm, volume 1.5 mL. ?? ? Previously: 1.6 x 1.0 x 1.2 cm, volume 1.0 mL. ?? ? Nodule characteristics: ?? ? Composition: Mixed cystic and solid (1). ?? ? Echogenicity: Hypoechoic (2). ?? ? Shape: Not taller than wide (0). ?? ? Margins: Smooth (0). ?? ? Echogenic Foci: Punctate echogenic foci (3). ? ACR TI-RADS total points: 6 Previous: 6 ?? ? ACR TI-RADS category: 4 Previous: 4 ? Significant change in size (>/= 20% in 2 dimensions and minimal increase of 2 mm or 50% or greater increase in volume): No ?? ? Change in features: No ?? ? Change in ACR TI-RADS risk category: No 4.? Location: Left mid. ?? ? Size: 1.0 x 0.56 x 0.73 cm, volume 0.21 mL. ?? ? Previously: 1.0 x 0.80 x 0.90 cm, volume 0.40 mL. ?? ? Nodule characteristics: ?? ? Composition: Mixed cystic and solid (1). ?? ? Echogenicity: Hypoechoic (2). ?? ? Shape: Not taller than wide (0). ?? ? Margins: Smooth (0). ?? ? Echogenic Foci: None (0).? ACR TI-RADS total points: 3 Previous: 3 ?? ? ACR TI-RADS category: 3 Previous: 3 ? Significant change in size (>/= 20% in 2 dimensions and minimal increase of 2 mm or 50% or greater increase in volume): No ?? ? Change in features: No ?? ? Change in ACR TI-RADS risk category: No NODES: No lymphadenopathy is seen in the tissue surrounding the thyroid gland. Labs: Laboratory Tests 12/15/21 08:50 TSH 0.72 Free T4 1.10 Laboratory Tests 02/28/24 09:12 TSH 0.57 Free T4 0.79 Laboratory Tests 03/04/24 04/17/24 15:21 09:30 Sodium 143 Potassium 4.5 Albumin 4.1 Random Cortisol 3.8 [facility] Medical History (Updated 05/05/24 @ 09:27 by Sydney Edwards MD) Low serum cortisol level Fatigue Pulmonary nodule SVT (supraventricular tachycardia) Dyspnea Pneumonitis Pericardial effusion Esophageal candidiasis Ileitis Abdominal pain Inflammation of small intestine History of anesthesia complications Hx of chest pain Fusion of spine, cervical region TMJ syndrome Hx of gastritis Cervical radiculopathy Elevated cholesterol Osteoarthritis Hx of migraine headaches Multinodular thyroid Surgical History Hx of shoulder surgery S/P thyroid biopsy H/O colonoscopy History of esophagogastroduodenoscopy (EGD) History of spinal fusion Hx of dilation and curettage Hx of cholecystectomy Hx of tonsillectomy Hx of tubal ligation Family History Mother Diabetes Uterine cancer Hypertension Father Diabetes Hypertension Stroke Family/Other Colon cancer Social History Household Members: Spouse Housing: House Are you a primary care provider to a significant other at home: No Do you presently have visiting nurse or other home services: No Alcohol intake: never Patient Tobacco Use Status: Former Tobacco user Tobacco use type: Cigarette Cigarettes Per Day: 10 Years Smoked: 5 Substance Use Type: Marijuana service: No Current occupational status: employed Current occupation: right hand dominant Physical Exam Vital Signs: Last Vital Signs Pulse 46 L 05/05/24 08:54 BP 142/92 H 05/05/24 08:54 BMI result Body Mass Index 30.7 Assessment & Plan Assessment & Plan (1) Multinodular thyroid: Code(s): E04.2 - Nontoxic multinodular goiter Category: Medical Plan: 58-year-old female with no family history of thyroid cancer, with no personal history of head or neck radiation Was initially diagnosed with multinodular thyroid in 2020 with thyroid US revealing bilateral thyroid nodules. She underwent FNA biopsy of a LMP 1.6 cm thyroid nodule 11/18/2020 with benign (bethesda category II) cytology. Ultrasound 11/2021 showed stable size of the left midpole 1.6 cm nodule. Most recent thyroid ultrasound 12/2023 showed significant increase in the size of the left midpole nodule now measuring 2 cm in the maximum dimension. This meets criteria for repeat FNA. I explained that it is common to have thyroid nodules. About 95% of the time these nodules are benign. However if the nodule is > 1 cm in size or suspicious on ultrasound then a fine need aspiration biopsy is recommended. We discussed that a FNAB involves 4-5 passes with a small gauge needle and material obtained is sent off for cytology.If the cytopathology is benign then the nodule will be followed annually with repeat ultrasounds. However if it is suspicious or malignant, we will need to discuss further management. Indeterminate cytology can be further investigated with repeat FNA, genetic testing or empiric lobectomy. Malignant cytology is managed with either lobectomy or total thyroidectomy. We discussed briefly that thyroid cancer is, in most patients, an indolent disease that does not affect mortality. We will arrange for FNA of the left midpole 2 cm nodule at next available opening and patient will follow up with me in clinic thereafter for results and further decision making. Plan: -scheduled for FNA of the left midpole 2 cm nodule -follow up in 2 weeks after biopsy to discuss results (2) Low serum cortisol level: Code(s): R79.89 - Other specified abnormal findings of blood chemistry Category: Medical Plan: Patient is also complaining of excessive fatigue, nausea, over the past few months. Her weight has been stable. She describes difficulty losing weight. She was noted to have a low cortisol of 3.8 from March 2024. No prior history of adrenal insufficiency. She has had multiple courses of prednisone tapers in 2022, early 2023. Has not been on any kind of steroids per patient since September 2023. Could possibly have some degree of suppression of her cortisol excess due to exogenous steroid use over long period of time. I will check her cortisol, acth, DHEA-S levels. We will consider doing a cosyntropin stim test if these levels are low at 08:00. She is also describing history of concussions in the past which were pretty severe, and with her history of weight gain, overall fatigue and poor quality of life, I will also check her for growth hormone deficiency. We will also check the rest of her pituitary panel. Plan: -ordered ACTH, cortisol, DHEA-S, pituitary panel (3) Fatigue: Code(s): R53.83 - Other fatigue Category: Medical Qualifiers: Fatigue type: unspecified Qualified Code(s): R53.83 - Other fatigue Plan: See above Plan I spent 30 minutes in reviewing the record, seeing the patient and documenting in the medical record. Orders: Orders Adrenocorticotropic Hormone Today E04.2 - Nontoxic multinodular goiter, R79.89 - Other specified abnormal findings of blood chemistry DHEA Sulfate Today E04.2 - Nontoxic multinodular goiter, R79.89 - Other specified abnormal findings of blood chemistry Cortisol Random Today E04.2 - Nontoxic multinodular goiter, R79.89 - Other specified abnormal findings of blood chemistry Renin Today E04.2 - Nontoxic multinodular goiter, R79.89 - Other specified abnormal findings of blood chemistry Basic Metabolic Panel Today E04.2 - Nontoxic multinodular goiter, R79.89 - Other specified abnormal findings of blood chemistry Human Growth Hormone Today R53.83 - Other fatigue, R79.89 - Other specified abnormal findings of blood chemistry Free T4 (Free Thyroxine) Today R53.83 - Other fatigue, R79.89 - Other specified abnormal findings of blood chemistry Aldosterone Today E04.2 - Nontoxic multinodular goiter, R79.89 - Other specified abnormal findings of blood chemistry IGF-1 (Somatomedin C) Today R53.83 - Other fatigue, R79.89 - Other specified abnormal findings of blood chemistry Prolactin Today R53.83 - Other fatigue, R79.89 - Other specified abnormal findings of blood chemistry Thyroid Stimulating Hormone Today R53.83 - Other fatigue, R79.89 - Other specified abnormal findings of blood chemistry Follicle Stimulating Hormone Today R53.83 - Other fatigue, R79.89 - Other specified abnormal findings of blood chemistry Lutenizing Hormone Today R53.83 - Other fatigue, R79.89 - Other specified abnormal findings of blood chemistry Estradiol Ultra Sensitive Today R53.83 - Other fatigue, R79.89 - Other specified abnormal findings of blood chemistry Alpha Subunit Today R53.83 - Other fatigue, R79.89 - Other specified abnormal findings of blood chemistry Patient Instructions: We will book you for a thyroid biopsy on the left side and a follow upin 2 weeks to discuss results Do early AM 8 AM blood work Coding Level of Care Code Est Pt Level 4 (83509) Diagnoses Multinodular thyroid E04.2 Low serum cortisol level R79.89 Fatigue, unspecified type R53.83 Fatigue type: unspecified Time Spent (min) 30
== END 2024-05-05 09:48 | disposition home or self-care (01) ==
PROVIDERS: PCP Internal Medicine; Visit Provider Student in an Organized Health Care Education/Training Program
DX: E04.2 Nontoxic multinodular goiter (principal); R79.89 Other specified abnormal findings of blood chemistry; R53.83 Other fatigue
CPT/HCPCS: 99214

== ENCOUNTER → 2024-05-05 08:52 | Outpatient (BNVA) | payer OTHER, SELFPAY | PROVIDERS: PCP Internal Medicine; Visit Provider Student in an Organized Health Care Education/Training Program ==

== ENCOUNTER 2024-05-06 07:41 | Outpatient (REF) | payer OTHER, SELFPAY ==
[2024-05-06 09:23] LABS: Anion Gap 10 (12-20); Blood Urea Nitrogen 13 mg/dL (9-16); Calcium 9.1 mg/dL (8.4-10.2); Carbon Dioxide 26 mmol/L (22-29); Chloride 110 mmol/L (96-108); Estimated Glomerular Filt Rate 53; Glucose Random 89 mg/dL (60-115); Potassium 4.2 mmol/L (3.3-5.1); Sodium 142 mmol/L (135-145)
[2024-05-06 09:40] LABS: Free T4 (Free Thyroxine) 1.01 ng/dL (0.71-1.85); Thyroid Stimulating Hormone 0.77 uIU/mL (0.32-4.0)
[2024-05-06 10:19] LABS: Cortisol Random 5.9 ug/dL
[2024-05-07 20:09] LABS: DHEA Sulfate 5 mcg/dL (5-167); Follicle Stimulating Hormone 126.7 mIU/mL; Lutenizing Hormone 43.3 mIU/mL
[2024-05-07 22:09] LABS: Human Growth Hormone 0.1 ng/mL (< OR = 7.1)
[2024-05-10 16:27] LABS: IGF-1 (Somatomedin C) 108 ng/mL (41-279); IGF-1 Z Score (Female) -0.4 SD (-2.0 - +2.0)
[2024-05-11 13:52] LABS: Adrenocorticotropic Hormone 23 pg/mL (6-50)
[2024-05-12 12:48] LABS: Renin 1.78 ng/mL/h (0.25-5.82)
[2024-05-16 00:13] LABS: Estradiol Ultra Sensitive <2 pg/mL
== END 2024-05-06 07:42 | disposition home or self-care (01) ==
LOC: HO.LAB 07:41
PROVIDERS: Absent Provider Student in an Organized Health Care Education/Training Program; PCP Internal Medicine; Visit Provider Student in an Organized Health Care Education/Training Program
DX: R79.89 Other specified abnormal findings of blood chemistry (principal); E04.2 Nontoxic multinodular goiter; R53.83 Other fatigue
CPT/HCPCS: 36415; 80048; 82024; 82088; 82533; 82627; 82670; 83001; 83002; 83003; 83519; 84146; 84244; 84305; 84439; 84443

== ENCOUNTER 2024-05-07 07:52 | Outpatient (AMB) | payer OTHER, SELFPAY ==
--- NOTE | 2024-05-07 08:06 | A.OFFVIS_ITS ---
Vital Signs 05/07/24 08:15 Height 5 ft 2 in Weight 167 lb BMI 30.5 BP 112/62 Blood Pressure Location Lt brachial Position Sitting Pulse 82 Pulse Source Pulse Oximeter Pulse Oximetry (%) 94 Oxygen Delivery Method Room Air Intake Visit Reasons: idiopathic pericarditis-pt req/cm Intake Note: Patient presents for Idiopathic Pericarditis. Skin rash under both breast and having lots of migraines daily possibly side effects from taking the Kineret? Allergies pollen extracts Allergy (Intermediate, Verified 05/07/24 08:14) Runny Nose atorvastatin Allergy (Mild, Verified 05/07/24 08:14) muscle pain blue dye Allergy (Mild, Verified 05/07/24 08:14) Unknown iodine Allergy (Mild, Verified 05/07/24 08:14) Itching red dye Allergy (Mild, Verified 05/07/24 08:14) Unknown tree and shrub pollen Allergy (Mild, Verified 05/07/24 08:14) Nasal congestion erythromycin base Allergy (Verified 05/07/24 08:14) Nausea and Vomiting azathioprine Adverse Reaction (Severe, Verified 05/07/24 08:14) vomiting and diarrhea stevioside [From Stevia] Adverse Reaction (Verified 05/07/24 08:14) Abdominal Pain green dye Allergy (Severe, Uncoded 05/05/24 08:58) Headache molds and smuts Allergy (Severe, Uncoded 05/05/24 08:58) hadache Medication List - Last Reconciled 05/07/24 by Jeison Matta MD acyclovir 400 mg PO BID cyclobenzaprine 10 mg PO BID cyclosporine 0.05% (Restasis) 1 drp ophthalmic (eye) Q12H dicyclomine 20 mg PO BID PRN hydroxychloroquine 300 mg (1.5 x 200 mg) PO DAILY Kineret (anakinra) 100 mg (0.67 mL) subcut DAILY NS lorazepam 0.5 mg PO DAILY PRN metoclopramide HCl 10 mg PO TID metoprolol succinate ER 100 mg PO DAILY omeprazole 40 mg PO DAILY ondansetron HCl 8 mg PO DAILY 15 days rosuvastatin 10 mg PO BEDTIME sumatriptan 20 mg/actuation mg intranasal triamcinolone acetonide (Nasacort Allergy) 1 spray intranasal DAILY verapamil ER 120 mg PO DAILY HPI Comments Details: This is a 58-year-old female with idiopathic pericarditis who presents for follow-up. She is on Kineret daily injection. She is worried about side effects. She states that recently she has been having daily migraines. She was recently started on sumatriptan nasal spray. She states that she has history of migraines in the past and used to be on zomitriptan regularly. She also states that she had a rash under her breast that she started treating with nystatin powder. It is already improving. She also states that she has had history of recurrent genital herpes, she had required prophylactic antiviral treatment in the past. She is also stressed because a recent thyroid ultrasound showed a nodule that requires a biopsy Initial history: This is a 58 year old female previously diagnosed with lupus by Dr. Sorto who presents for follow-up. Over the last year patient presented to the hospital multiple times for pericarditis. She has been on multiple doses of prednisone. Last dose of prednisone was October 06. Patient does not want to go back to taking prednisone due to significant weight gain. She has lost some weight since she stopped the prednisone. She stated that colchicine was started by her senior technical specialist at [facility] with some improvement. She stated that hydroxychloroquine has generally helped her. When she was off of it she felt mu ch worse with worsening fatigue and body aches. Her main complaint today is her chest discomfort, shortness of breath, chest pain especially when taking a deep breath and lying on her back. She sleeps sitting down. She has noted mildly erythematous rash on her extremities and torso. She has mildly cool fingers and toes but never developed any digital ulcers. She denies any fevers. She was evaluated by chief client officer due to recurrent diarrhea and GI symptoms. She was told that she has bowel inflammation and there is some suspicion of IBD. Her pericarditis symptoms and bowel symptoms improve when she is on prednisone. She had a lip biopsy twice and it was negative for Sjogren's. [facility] Medical History Low serum cortisol level Fatigue Pulmonary nodule SVT (supraventricular tachycardia) Dyspnea Pneumonitis Pericardial effusion Esophageal candidiasis Ileitis Abdominal pain Inflammation of small intestine History of anesthesia complications Hx of chest pain Fusion of spine, cervical region TMJ syndrome Hx of gastritis Cervical radiculopathy Elevated cholesterol Osteoarthritis Hx of migraine headaches Multinodular thyroid Surgical History Hx of shoulder surgery S/P thyroid biopsy H/O colonoscopy History of esophagogastroduodenoscopy (EGD) History of spinal fusion Hx of dilation and curettage Hx of cholecystectomy Hx of tonsillectomy Hx of tubal ligation Family History Mother Diabetes Uterine cancer Hypertension Father Diabetes Hypertension Stroke Family/Other Colon cancer Social History Household Members: Spouse Housing: House Are you a primary manager home healthcare to a significant other at home: No Do you presently have visiting nurse or other home services: No Alcohol intake: never Patient Tobacco Use Status: Former Tobacco user Tobacco use type: Cigarette Cigarettes Per Day: 10 Years Smoked: 5 Substance Use Type: Marijuana service: No Current occupational status: employed Current occupation: right hand dominant Review of Systems Const Reports headache(s) ENT Reports headache(s) Card Denies chest pain Musc Denies arthralgias, Denies joint swelling and Denies stiffness Skin/Breast Reports rash Neuro Reports headache(s) Physical Exam Vital Signs: Last Vital Signs Pulse 82 05/07/24 08:15 BP 112/62 05/07/24 08:15 Pulse Ox 94 05/07/24 08:15 Oxygen Delivery Method Room Air 05/07/24 08:15 BMI result Body Mass Index 30.5 Const General: cooperative, healthy appearing and comfortable Nutritional Appearance: obese Orientation/consciousness: patient oriented x3 Limitations: no limitations HEENT Head: Yes normocephalic and Yes atraumatic Resp Effort & Inspection: normal respiratory effort and able to speak in complete sentences Cardio Rate: regular rate Rhythm: regular rhythm Neuro General: patient oriented x3 Extrem Other: Normal nailfold capillaroscopy No active synovitis Assessment & Plan Assessment & Plan (1) Recurrent idiopathic pericarditis: Comment: Hydroxychloroquine minimal effective Colchicine minimally effective Azathioprine not tolerated kineret 11/2023 effective Code(s): I30.0 - Acute nonspecific idiopathic pericarditis Category: Medical Plan: This is a 58-year-old female with recurrent idiopathic pericarditis who presents for follow-up. On anakinra 100 mg subcutaneously daily. Today she is concerned about potential side effects. With regards to her migraines, patient has known history of migraines and used to require zomitriptan. She has eruption of what seems to be a candidal intertrigo rash that is already resolving with nystatin powder. She has history of migraines, whether the migraines coming back are related to anakinra is a possibility but not likely, the candidal intertrigo rash can be a result of some immune suppression, it is already clearing up with nystatin powder. I think I think anakinra has been quite effective to treat her autoinflammatory condition and so far she has not developed any significant side effects that would stop us from continuing it. The benefits at this time significantly outweigh risks/side effects. Continue anakinra, Continue with hydroxychloroquine. Colchicine has been discontinued. We will discuss reducing hydroxychloroquine and tapering it off subsequent visits Labs before next visit in 2 months Plan I spent 22 minutes reviewing patient's chart, evaluating patient, ordering diagnostic workup, counseling patient and documenting in the chart Orders: Orders Lipid Panel 5 Weeks E78.5 - Hyperlipidemia, unspecified Coding Level of Care Code Est Pt Level 4 (54723) Diagnoses Recurrent idiopathic pericarditis I30.0
[2024-05-07 08:15] VITALS: BP 112/62; PULSE 82; O2SAT 94; BMI 30.5
== END 2024-05-07 09:37 | disposition home or self-care (01) ==
PROVIDERS: PCP Internal Medicine; Visit Provider Student in an Organized Health Care Education/Training Program
DX: I30.0 Acute nonspecific idiopathic pericarditis (principal)
CPT/HCPCS: 99214

== ENCOUNTER 2024-05-07 10:34 | Outpatient (REF) | payer OTHER, SELFPAY ==
--- NOTE | 2024-05-07 11:33 | PM.PROC ---
Brief Operative Note Date of procedure: 05/07/24 Pre-op diagnosis: right mid lobe 2 cm thyroid nodule FNA biopsy Post-op diagnosis: same Procedure: THYROID FINE NEEDLE ASPIRATION PROCEDURE NOTE ? PROCEDURE PERFORMED: Ultrasound-guided FNA of thyroid nodule ? OPERATORS: Dr. Sydney Edwards ? INDICATION: right mid lobe 2 cm thyroid nodule ; FNA performed to assess for malignancy ? DESCRIPTION OF PROCEDURE: The indications for FNA (to assess for malignancy) were reviewed with the patient in detail. Potential complications (e.g., bleeding, infection, damage to local structures, absence of clear diagnosis after FNA) were reviewed. Alternatives to FNA including conservative observation or surgery were described. The patient understood and agreed to proceed. This was documented by the signing of the written informed consent form. A time-out was performed to confirm the patient's identity and the site of planned FNA. The nodule of interest was identified using ultrasound (14 MHz linear array probe). The site of FNA was then draped in the usual fashion and carefully cleaned and prepared using alcohol swabs. The skin at the previously-identified site of needle insertion was iced and sprayed with numbing spray. Under ultrasound guidance, _4 passes were performed using a 1.5-inch, 25-gauge needle, and sample was obtained via capillary action. The needle tip was clearly visualized to be within the nodule at the time of sampling for _4_ of 4__ passes The patient tolerated the procedure well. There were no immediate complications. A small adhesive bandage was applied, and the patient was advised to take acetaminophen (rather than NSAIDs) for any discomfort and to report any signs of inflammation/infection or marked swelling. IMPRESSION: Technically successful ultrasound-guided fine needle aspiration of right mid lobe 2 cm thyroid nodule. PLAN: The patient was advised that I will provide follow-up regarding the cytology result and any subsequent plans. Sydney Edwards MD Endocrinology Attending Condition: stable Disposition: same day
== END 2024-05-07 10:35 | disposition home or self-care (01) ==
LOC: HO.US 10:34
PROVIDERS: PCP Internal Medicine; Visit Provider Student in an Organized Health Care Education/Training Program
DX: E04.2 Nontoxic multinodular goiter (principal)
CPT/HCPCS: 10005; 88173

== ENCOUNTER → 2024-05-07 10:34 | Outpatient (BNV) | payer OTHER, SELFPAY | PROVIDERS: PCP Internal Medicine; Visit Provider Student in an Organized Health Care Education/Training Program | DX: E04.2 Nontoxic multinodular goiter (principal) | CPT/HCPCS: 10005 ==

== ENCOUNTER 2024-05-14 13:43 | Outpatient (REF) | payer OTHER, SELFPAY ==
--- NOTE | ~2024-05-14 | XR_ITS ---
EXAMINATION: XR HIP, LEFT CLINICAL INFORMATION: left hip pain COMPARISON: None available. TECHNIQUE: AP and frog-leg lateral views of the left hip. FINDINGS: No fracture. Alignment is anatomic. Hip joint space is maintained. Enthesopathic spurs at the greater trochanter. Phleboliths in the central pelvis. XR/XR hip LT min 2V IMPRESSION: Left hip joint appears relatively well-preserved. No acute fracture or malalignment. Enthesopathic spurs at the greater trochanter. Electronically signed by: Rj Howell MD 05/17/2024 11:07 PM ANNI MARTÍNEZ
== END 2024-05-14 13:44 | disposition home or self-care (01) ==
LOC: HO.XRAY 13:43
PROVIDERS: PCP Internal Medicine; Visit Provider Internal Medicine
DX: M25.552 Pain in left hip (principal)
CPT/HCPCS: 73502

== ENCOUNTER 2024-05-20 13:17 | Outpatient (AMB) | payer OTHER, SELFPAY ==
[2024-05-20 13:19] VITALS: BP 150/88; PULSE 51; BMI 30.7
--- NOTE | 2024-05-20 13:19 | MHC.OFFVIS ---
Vital Signs 05/20/24 13:19 Height 5 ft 2 in Weight 168 lb BMI 30.7 BP 150/88 H Blood Pressure Location Lt brachial Position Sitting Pulse 51 Pulse Source Pulse Oximeter Intake Visit Reasons: Biopsy f/u Intake Note: Patient present today for biopsy results. 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 Accompanied by: Spouse Allergies pollen extracts Allergy (Intermediate, Verified 05/20/24 13:25) Runny Nose atorvastatin Allergy (Mild, Verified 05/20/24 13:25) muscle pain blue dye Allergy (Mild, Verified 05/20/24 13:25) Unknown iodine Allergy (Mild, Verified 05/20/24 13:25) Itching red dye Allergy (Mild, Verified 05/20/24 13:25) Unknown tree and shrub pollen Allergy (Mild, Verified 05/20/24 13:25) Nasal congestion erythromycin base Allergy (Verified 05/20/24 13:25) Nausea and Vomiting azathioprine Adverse Reaction (Severe, Verified 05/20/24 13:25) vomiting and diarrhea stevioside [From Stevia] Adverse Reaction (Verified 05/20/24 13:25) Abdominal Pain green dye Allergy (Severe, Uncoded 05/20/24 13:25) Headache molds and smuts Allergy (Severe, Uncoded 05/20/24 13:25) hadache HPI Comments Details: 58 YO F with PMHx multinodular thyroid who is seen in F/U for a NTMNG. Also getting evaluated for low cortisol level. HPI from prior visit Was initially diagnosed with multinodular thyroid in 2020 with thyroid US revealing bilateral thyroid nodules. She underwent FNA biopsy of a LMP 1.6 cm thyroid nodule 11/18/2020 with benign (bethesda category II) cytology. Ultrasound 11/2021 showed stable size of the left midpole 1.6 cm nodule. Most recent thyroid ultrasound 12/2023 showed significant increase in the size of the left midpole nodule now measuring 2 cm in the maximum dimension. This meets criteria for repeat FNA. Reports difficulty swallowing with some dry foods. No pressure sensation when she lays down flat. Interval history Underwent FNA biopsy 05/07/2024 of the left midpole 2 cm nodule which came back as AUS with microfollicular arrangement (Tensed category 3). Pending Afirma. Low cortisol low cortisol levels of 3.8 at 9 AM on 04/17/2024 Has had 2 consucossions , once in high school, once in 2020 when she fell down the stairs, pretty severe head to her head. Gained 20 lbs since 2022 but in 2023 weight stable Complains of nausea daily Reports light headednes and dizziness Got prednsione tapers 4 times for pericarditis in early 2023 off any kind of steroids since September . Interval history Labs from 05/06/2024: Showed Cortisol level again in the lower side at 5.9 from 08:00, acth of 23, DHEA-S level of 5. Otherwise showed normal thyroid function, undetectable estradiol with elevated FSH of 126 consistent with being postmenopausal, LH of 43.3. Prolactin of 6. Alpha subunit pending. Normal electrolytes renin and aldosterone level. Physical exam General: sitting comfortably in no acute distress HEENT: normocephalic/atraumatic, EOM intact, moist oral mucosa Neck: supple, palpable 2 cm left-sided nodule Cardiac: normal heart sounds Pulm: normal breath sounds B/L, no added breath sounds Abd: not distended, no tenderness Extremities: no edema, no signs of myxedema Neuro: AAO x3, Speech: normal, no facial droop, moving all 4 extremities Imaging US THYROID 01/14/24 CLINICAL INFORMATION: Goiter, left thyroid benign biopsy October 2020. COMPARISON: Thyroid ultrasound 12/16/2021, 10/28/2020. TECHNIQUE: Linear transducer grayscale and color Doppler examination with attention to the region of the thyroid. FINDINGS: SIZE: Measurements of the thyroid lobes and nodules are given in sagittal, anteroposterior and transverse dimensions respectively. Right Thyroid Lobe: 5.2 x 1.4 x 2.0 cm, volume 7.2 mL. Parenchyma: The gland echotexture is heterogeneous. Thyroid vascularity is normal. Left Thyroid Lobe: 4.5 x 2.0 x 2.3 cm, volume 10.7 mL. Parenchyma: The gland echotexture is heterogeneous. Thyroid vascularity is normal. Isthmus: 0.5 cm in maximum AP dimension. Estimated total number of nodules greater than or equal to 1 cm: 2. Corporate Recycling Manager nodules are described as follows: 1. Location: Right mid to lower. Size: 1.0 x 0.7 x 0.7 cm, volume 0.2 mL. Previously 0.5 x 0.3 x 0.4 cm, volume 0.03 mL. Nodule characteristics: Composition: Mixed cystic and solid (1). Echogenicity: Hypoechoic (2). Shape: Not taller than wide (0). Margins: Ill-defined (0). Echogenic Foci: None (0). ACR TI-RADS total points: 3, previously 0 ACR TI-RADS category: 3, previously 1 2. Location: Left mid. Size: 2.0 x 1.7 x 1.5 cm, volume 2.5 mL. Previously 1.6 x 1.3 x 1.3 cm, volume 1.5 mL. Nodule characteristics: Composition: Solid (2). Echogenicity: Hypoechoic (2). Shape: Taller than wide (3). Margins: Ill-defined (0). Echogenic Foci: None (0). ACR TI-RADS total points: 7, previously 6 ACR TI-RADS category: 5, previously 4 3. Location: Left lower. Size: 0.8 x 0.6 x 0.7 cm, volume 0.2 mL. Previously 1.0 x 0.6 x 0.7 cm, volume 0.2 mL. Nodule characteristics: Composition: Solid (2). Echogenicity: Hypoechoic (2). Shape: Not taller than wide (0). Margins: Ill-defined (0). Echogenic Foci: None (0). ACR TI-RADS total points: 4, previously 3 ACR TI-RADS category: 4, previously 3 NODES: No lymphadenopathy is seen in the tissue surrounding the thyroid gland. US/US thyroid IMPRESSION: A 2.0 cm left mid TR 5 thyroid nodule has increased in size and meets criteria for biopsy. Fine-needle aspiration recommended. Thyroid US: 12/16/2021 SIZE: Measurements of the thyroid lobes and nodules are given in sagittal, anteroposterior and transverse dimensions respectively. Right Thyroid Lobe: 5.5 x 1.9 x 2.0 cm, volume 11.2 mL. Previously 5.3 x 2.3 x 1.8 cm, volume 11.5 mL. Parenchyma: The gland echotexture is homogeneous. Thyroid vascularity is normal. Left Thyroid Lobe: 4.7 x 2.1 x 2.3 cm, volume 11.4 mL. Previously 5.1 x 2.2 x 2.1 cm, volume 12.3 mL. Parenchyma: The gland echotexture is homogeneous. Thyroid vascularity is normal. Isthmus: 0.4 cm in maximum AP dimension. Previously 0.3 cm. Estimated total number of nodules greater than or equal to 1 cm: 2. Corporate Recycling Manager nodules are described as follows: 1.? Location: Right mid. ?? ? Size: 0.45 x 0.25 x 0.42 cm, volume 0.03 mL. ?? ? Previously: 0.40 x 0.30 x 0.30 cm, volume 0.02 mL. ?? ? Nodule characteristics: ?? ? Composition: Spongiform (0). ?? ? Echogenicity: Anechoic (0). ?? ? Shape: Not taller than wide (0). ?? ? Margins: Smooth (0). ?? ? Echogenic Foci: None (0).? ACR TI-RADS total points: 0 Previous: 4 ?? ? ACR TI-RADS category: 1 Previous: 4 ? Significant change in size (>/= 20% in 2 dimensions and minimal increase of 2 mm or 50% or greater increase in volume): Yes ?? ? Change in features: Yes ?? ? Change in ACR TI-RADS risk category: Yes 2.? Location: Right superior. ?? ? Size: 0.40 x 0.21 x 0.34 cm, volume 0.02 mL. ?? ? Previously: Not seen on the previous study. ?? ? Nodule characteristics: ?? ? Composition: Cystic(0). ?? ? ACR TI-RADS total points: 0 ?? ? ACR TI-RADS category: 1 3.? Location: Left mid. ?? ? Size: 1.6 x 1.3 x 1.3 cm, volume 1.5 mL. ?? ? Previously: 1.6 x 1.0 x 1.2 cm, volume 1.0 mL. ?? ? Nodule characteristics: ?? ? Composition: Mixed cystic and solid (1). ?? ? Echogenicity: Hypoechoic (2). ?? ? Shape: Not taller than wide (0). ?? ? Margins: Smooth (0). ?? ? Echogenic Foci: Punctate echogenic foci (3). ? ACR TI-RADS total points: 6 Previous: 6 ?? ? ACR TI-RADS category: 4 Previous: 4 ? Significant change in size (>/= 20% in 2 dimensions and minimal increase of 2 mm or 50% or greater increase in volume): No ?? ? Change in features: No ?? ? Change in ACR TI-RADS risk category: No 4.? Location: Left mid. ?? ? Size: 1.0 x 0.56 x 0.73 cm, volume 0.21 mL. ?? ? Previously: 1.0 x 0.80 x 0.90 cm, volume 0.40 mL. ?? ? Nodule characteristics: ?? ? Composition: Mixed cystic and solid (1). ?? ? Echogenicity: Hypoechoic (2). ?? ? Shape: Not taller than wide (0). ?? ? Margins: Smooth (0). ?? ? Echogenic Foci: None (0).? ACR TI-RADS total points: 3 Previous: 3 ?? ? ACR TI-RADS category: 3 Previous: 3 ? Significant change in size (>/= 20% in 2 dimensions and minimal increase of 2 mm or 50% or greater increase in volume): No ?? ? Change in features: No ?? ? Change in ACR TI-RADS risk category: No NODES: No lymphadenopathy is seen in the tissue surrounding the thyroid gland. Labs: Laboratory Tests 12/15/21 08:50 TSH 0.72 Free T4 1.10 Laboratory Tests 02/28/24 09:12 TSH 0.57 Free T4 0.79 Laboratory Tests 03/04/24 04/17/24 15:21 09:30 Sodium 143 Potassium 4.5 Albumin 4.1 Random Cortisol 3.8 Laboratory Tests 04/17/24 05/06/24 09:30 07:58 Sodium 142 Potassium 4.2 Renin 1.78 Aldosterone 26 TSH 0.77 Free T4 1.01 Estradiol Ultra LCMSMS <2 FSH 126.7 H Luteinizing Hormone 43.3 Prolactin 6.0 DHEA Sulfate 5 Somatomedin-C 108 Somato-C Z-Score Female -0.4 Random Cortisol 3.8 5.9 ACTH 23 PFSH Medical History Low serum cortisol level Fatigue Pulmonary nodule SVT (supraventricular tachycardia) Dyspnea Pneumonitis Pericardial effusion Esophageal candidiasis Ileitis Abdominal pain Inflammation of small intestine History of anesthesia complications Hx of chest pain Fusion of spine, cervical region TMJ syndrome Hx of gastritis Cervical radiculopathy Elevated cholesterol Osteoarthritis Hx of migraine headaches Multinodular thyroid Surgical History Hx of shoulder surgery S/P thyroid biopsy H/O colonoscopy History of esophagogastroduodenoscopy (EGD) History of spinal fusion Hx of dilation and curettage Hx of cholecystectomy Hx of tonsillectomy Hx of tubal ligation Family History Mother Diabetes Uterine cancer Hypertension Father Diabetes Hypertension Stroke Family/Other Colon cancer Social History Household Members: Spouse Housing: House Are you a primary group care worker to a significant other at home: No Do you presently have visiting nurse or other home services: No Alcohol intake: never Patient Tobacco Use Status: Former Tobacco user Tobacco use type: Cigarette Cigarettes Per Day: 10 Years Smoked: 5 Substance Use Type: Marijuana service: No Current occupational status: employed Current occupation: right hand dominant Physical Exam Vital Signs: Last Vital Signs Pulse 51 05/20/24 13:19 BP 150/88 H 05/20/24 13:19 BMI result Body Mass Index 30.7 Assessment & Plan Assessment & Plan (1) Multinodular thyroid: Code(s): E04.2 - Nontoxic multinodular goiter Category: Medical Plan: 58-year-old female with no family history of thyroid cancer, with no personal history of head or neck radiation Was initially diagnosed with multinodular thyroid in 2020 with thyroid US revealing bilateral thyroid nodules. She underwent FNA biopsy of a LMP 1.6 cm thyroid nodule 11/18/2020 with benign (bethesda category II) cytology. Ultrasound 11/2021 showed stable size of the left midpole 1.6 cm nodule. Most recent thyroid ultrasound 12/2023 showed significant increase in the size of the left midpole nodule now measuring 2 cm in the maximum dimension. This meets criteria for repeat FNA. Underwent FNA biopsy 05/07/2024 of the left midpole 2 cm nodule which came back as AUS with microfollicular arrangement (Tensed category 3). Pending Afirma. I discussed with the patient that AUS results carry a 6-18% chance of malignancy. Plan: -follow up in 4 weeks to discuss Afirma results (2) Low serum cortisol level: Code(s): R79.89 - Other specified abnormal findings of blood chemistry Category: Medical Plan: Patient is also complaining of excessive fatigue, nausea, over the past few months. Her weight has been stable. She describes difficulty losing weight. She was noted to have a low cortisol of 3.8 from March 2024. No prior history of adrenal insufficiency. She has had multiple courses of prednisone tapers in 2022, early 2023. Has not been on any kind of steroids per patient since September 2023. Could possibly have some degree of suppression of her cortisol excess due to exogenous steroid use over long period of time. Labs from 05/06/2024: Showed Cortisol level again in the lower side at 5.9 from 08:00, acth of 23, DHEA-S level of 5. Otherwise showed normal thyroid function, undetectable estradiol with elevated FSH of 126 consistent with being postmenopausal, LH of 43.3. Prolactin of 6. Alpha subunit pending. Normal electrolytes renin and aldosterone level. We will proceed with doing a cosyntropin stimulation test given results are possibly concerning for adrenal insufficiency. She is also describing history of concussions in the past which were pretty severe, and with her history of weight gain, overall fatigue and poor quality of life, however results from 05/16/2024 showed normal IGF-1 Plan: -scheduled for cosyntropin stimulation test -follow up in 4 weeks to discuss results -repeat cortisol, acth and DHEA-S levels prior to follow up in 4 weeks (3) Fatigue: Code(s): R53.83 - Other fatigue Category: Medical Qualifiers: Fatigue type: unspecified Qualified Code(s): R53.83 - Other fatigue Plan: See above Plan I spent 30 minutes in reviewing the record, seeing the patient and documenting in the medical record. Orders: Orders Basic Metabolic Panel 3 Weeks R53.83 - Other fatigue, R79.89 - Other specified abnormal findings of blood chemistry Adrenocorticotropic Hormone 3 Weeks R53.83 - Other fatigue, R79.89 - Other specified abnormal findings of blood chemistry Cortisol Random 3 Weeks R53.83 - Other fatigue, R79.89 - Other specified abnormal findings of blood chemistry DHEA Sulfate 3 Weeks R53.83 - Other fatigue, R79.89 - Other specified abnormal findings of blood chemistry Referrals Infusion Center Notification R79.89 - Other specified abnormal findings of blood chemistry Patient Instructions: We will arrange for cosyntropin stimulation test, please expect a call to schedule that We will reach out with results of the genetic testing Do blood work 8 AM a few days prior to your next appointment Coding Level of Care Code Est Pt Level 4 (42923) Diagnoses Multinodular thyroid E04.2 Low serum cortisol level R79.89 Fatigue, unspecified type R53.83 Fatigue type: unspecified Time Spent (min) 30
== END 2024-05-20 13:46 | disposition home or self-care (01) ==
PROVIDERS: PCP Internal Medicine; Visit Provider Student in an Organized Health Care Education/Training Program
DX: E04.2 Nontoxic multinodular goiter (principal); R79.89 Other specified abnormal findings of blood chemistry; R53.83 Other fatigue
CPT/HCPCS: 99214

== ENCOUNTER → 2024-05-20 13:17 | Outpatient (BNVA) | payer OTHER, SELFPAY | PROVIDERS: PCP Internal Medicine; Visit Provider Student in an Organized Health Care Education/Training Program ==

== ENCOUNTER 2024-06-04 07:19 | Outpatient (RCR) | payer OTHER, SELFPAY ==
[2024-06-04 07:24] VITALS: BP 145/76; PULSE 72; RESP 14; TEMP 36.4; O2SAT 97
[2024-06-04] MEDS: Cosyntropin 0.25 MG VIAL IVPUSH (07:45)
--- NOTE | 2024-06-04 08:15 | HO.INF ---
phlebotomy at bedside for 30 min draw
--- NOTE | 2024-06-04 08:44 | HO.INF ---
phlebotomy at bedside for 60 min draw
[2024-06-05 23:38] LABS: Cortisol 30 Minute 22.4 mcg/dL; Cortisol 60 Minute 25.4 mcg/dL; Cortisol Baseline 4.8 mcg/dL
== END 2024-06-04 08:49 | disposition home or self-care (01) ==
LOC: HO.INF 07:19
PROVIDERS: Visit Provider Student in an Organized Health Care Education/Training Program
DX: R79.89 Other specified abnormal findings of blood chemistry (principal)
CPT/HCPCS: 36415; 82533; 96374; J0834

== ENCOUNTER 2024-06-10 08:46 | Outpatient (AMB) | payer OTHER, SELFPAY ==
--- NOTE | 2024-06-10 08:55 | MHC.OFFVIS ---
Vital Signs 06/10/24 08:56 Height 5 ft 2 in Weight 169 lb BMI 30.9 BP 130/62 Blood Pressure Location Lt brachial Position Sitting Pulse 66 Intake Visit Reasons: 6 month follow up Intake Note: Patient 6 month fllow up for IBS and labs. CC: Patient c/o nausea but states she is not vomiting as much. She states needing to use the laxative at least twice a week. She continues using the Reglan. Pt also reports brain fog a lot of bloating and belching. Sulphate Tester Required: No Accompanied by: Spouse Allergies pollen extracts Allergy (Intermediate, Verified 06/10/24 09:01) Runny Nose atorvastatin Allergy (Mild, Verified 06/10/24 09:01) muscle pain blue dye Allergy (Mild, Verified 06/10/24 09:01) Unknown iodine Allergy (Mild, Verified 06/10/24 09:01) Itching red dye Allergy (Mild, Verified 06/10/24 09:01) Unknown tree and shrub pollen Allergy (Mild, Verified 06/10/24 09:01) Nasal congestion erythromycin base Allergy (Verified 06/10/24 09:01) Nausea and Vomiting azathioprine Adverse Reaction (Severe, Verified 06/10/24 09:01) vomiting and diarrhea stevioside [From Stevia] Adverse Reaction (Verified 06/10/24 09:01) Abdominal Pain green dye Allergy (Severe, Uncoded 05/20/24 13:25) Headache molds and smuts Allergy (Severe, Uncoded 05/20/24 13:25) hadache HPI HPI 6 month follow up: Details: Assessment & Plan (1) Inflammatory arthritis: Code(s): M19.90 - Unspecified osteoarthritis, unspecified site Category: Medical (2) Systemic lupus erythematosus: Code(s): M32.9 - Systemic lupus erythematosus, unspecified Category: Medical Qualifiers: Systemic lupus erythematosus organ involvement: lung involvement Systemic lupus erythematosus type: unspecified Qualified Code(s): M32.13 - Lung involvement in systemic lupus erythematosus (3) Small bowel motility disorder: Code(s): K59.9 - Functional intestinal disorder, unspecified Category: Medical (4) Abdominal bloating: Code(s): R14.0 - Abdominal distension (gaseous) Category: Medical Plan She is here today with her who is supportive She will be starting a new medicine called Kineret. She is being treated by Dr. 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 However, since getting off of the prednisone her sx have recurred, paul fatigue, jiont aches and elevated pulse. She continues on her omeprazole and she has Reglan and dicyclomine available for the irritable bowel as she goes through all of these changes in medications and management of her underlying rheumatologic situation. Return office visit in 6 months Orders: Orders C Reactive Protein 12/11/23 M19.90 - Unspecified osteoarthritis, unspecified site, M32.13 - Lung involvement in systemic lupus erythematosus Comprehensive Met. Panel 12/11/23 M19.90 - Unspecified osteoarthritis, unspecified site, M32.13 - Lung involvement in systemic lupus erythematosus Complete Blood Count Auto Diff 12/11/23 M19.90 - Unspecified osteoarthritis, unspecified site, M32.13 - Lung involvement in systemic lupus erythematosus Erythrocyte Sedimentation Rate 12/11/23 M19.90 - Unspecified osteoarthritis, unspecified site, M32.13 - Lung involvement in systemic lupus erythematosus Medications: New ondansetron HCl 8 mg PO DAILY 15 tabs 0RF 15 days Changed From omeprazole 40 mg PO Q72H To omeprazole 40 mg PO DAILY 30 caps 6RF LABS: Laboratory Tests 12/11/23 03/04/24 05/06/24 12:11 15:21 07:58 WBC 6.6 Hgb 14.1 Hct 41.4 Plt Count 201 ESR 19 2 Estimated GFR 53 She will be going for Chem panel in the next couple of days. TODAY'S VISIT In general they are beginning to find acceptable treatments for her autoimmune/inflammatory disorder. She is feeling better than she has felt in a long time but she still has some remaining challenges with her energy, her GI system and shortness of breath. She continued to have nausea, but was not taking reglan scheduled. She uses the bentyl mostly when she goes out as she has cramping but with her uneven peristalsis she at times struggles with BM's. She has a lot of cramping prior to a BM. She is trying to be active, but also struggle with dyspnea. She is seeing cardiology tomorrow. He sees Dr. Freed for respiratory and is clear from this standpoint but will be awaiting cardiac clearance. There are no prior problems with anesthesia or sedation. There are no infectious disease problems. Given her connective tissue and general inflammation I think a repeat EGD is prudent to make sure she does not have PUD with her hx of gastritis. ROV 6 mos and after EGD. [facility] Medical History (Updated 06/10/24 @ 09:28 by HALEY Lara) Hx of gastritis Pain of multiple sites Pneumonitis Pericardial effusion Acute pericardial effusion Low serum cortisol level Fatigue Pulmonary nodule SVT (supraventricular tachycardia) Dyspnea Esophageal candidiasis Ileitis Abdominal pain Inflammation of small intestine History of anesthesia complications Hx of chest pain Fusion of spine, cervical region TMJ syndrome Cervical radiculopathy Elevated cholesterol Osteoarthritis Hx of migraine headaches Multinodular thyroid Surgical History Hx of shoulder surgery S/P thyroid biopsy H/O colonoscopy History of esophagogastroduodenoscopy (EGD) History of spinal fusion Hx of dilation and curettage Hx of cholecystectomy Hx of tonsillectomy Hx of tubal ligation Family History Mother Diabetes Uterine cancer Hypertension Father Diabetes Hypertension Stroke Family/Other Colon cancer Social History Household Members: Spouse Housing: House Are you a primary memory care program resident to a significant other at home: No Do you presently have visiting nurse or other home services: No Alcohol intake: never Patient Tobacco Use Status: Former Tobacco user Tobacco use type: Cigarette Cigarettes Per Day: 10 Years Smoked: 5 Substance Use Type: Marijuana service: No Current occupational status: employed Current occupation: right hand dominant Review of Systems Const Denies fatigue, Denies fever(s), Denies night sweats, Denies poor appetite and Denies weight loss ENT Reports Normal hearing present, Denies dental pain, Denies dysphagia, Denies hearing loss, Denies mouth pain, Reports neck pain, Denies odynophagia, Denies throat swelling, Denies tongue swelling and Reports other (Dentition adequate) Card Reports no additional complaints and Reports dyspnea Resp Reports dyspnea GI Details: Denies abdominal pain, Denies melena, Reports bloating, Denies hematochezia, Reports constipation, Reports GI cramping, Denies dysphagia, Denies excessive flatus, Denies early satiety, Reports heartburn, Denies diarrhea, Reports nausea, Denies odynophagia, Denies vomiting and Denies hematemesis Musc Reports back pain, Reports myalgias, Reports arthralgias and Reports neck pain Skin/Breast Denies pruritus, Denies lesions, Denies rash and Denies jaundice Neuro Reports Normal hearing present and Denies Abnormal speech present Endo Denies fatigue Aller/Immun Reports GI upset with certain foods (Heavier greasy or foods), Denies throat swelling and Denies tongue swelling Physical Exam Vital Signs: Last Vital Signs Pulse 66 06/10/24 08:56 BP 130/62 06/10/24 08:56 BMI result Body Mass Index 30.9 Const General: cooperative, no acute distress, well developed and well groomed Nutritional Appearance: well nourished and overweight Orientation/consciousness: oriented to person, oriented to place and oriented to time Limitations: No language barrier HEENT Head: Yes normocephalic and Yes atraumatic Eyes General: appearance normal, both eyes and all related structures Pupils: Equal, round and reactive pupils present Neck Neck: Yes normal visual inspection Resp Effort & Inspection: normal respiratory effort and able to speak in complete sentences GI Inspection: No distended, No Abdominal panniculus present and Yes obesity Palpation (GI): Soft to palpation, nontender, no guarding, not rigid and No hepatosplenomegaly present Percussion: Yes normal to percussion Auscultation: normal bowel sounds Rectal Exam - Female: deferred Skin General skin exam: no rashes or lesions noted, turgor normal, skin not dry, no jaundice, No spider nevi and no striae Rashes: no rashes Nails: normal Neuro General: oriented to person, oriented to place and oriented to time Cranial nerves: Yes Equal, round and reactive pupils present and Yes Normal hearing present Speech: No Abnormal speech present Psych Appearance: grossly normal and well kempt Mental Status: mental status grossly normal Speech and movement: Normal speech and movement present Affect: normal affect Attitude: cooperative Thought process: Normal thought process present and not confabulating Thought content: Normal thought content present Insight: Good insight present (Psych) Judgement: Good judgement present (Psych) Assessment & Plan Assessment & Plan (1) Nausea: Code(s): R11.0 - Nausea Category: Medical (2) Small bowel motility disorder: Code(s): K59.9 - Functional intestinal disorder, unspecified Category: Medical (3) Hx of gastritis: Code(s): Z87.19 - Personal history of other diseases of the digestive system Category: Medical (4) Irritable bowel syndrome with both constipation and diarrhea: Code(s): K58.2 - Mixed irritable bowel syndrome Category: Medical (5) Systemic lupus erythematosus: Code(s): M32.9 - Systemic lupus erythematosus, unspecified Category: Medical Qualifiers: Systemic lupus erythematosus organ involvement: lung involvement Systemic lupus erythematosus type: unspecified Qualified Code(s): M32.13 - Lung involvement in systemic lupus erythematosus (6) Esophageal spasm: Code(s): K22.4 - Dyskinesia of esophagus Category: Medical (7) Abdominal bloating: Code(s): R14.0 - Abdominal distension (gaseous) Category: Medical (8) Pericarditis associated with systemic lupus erythematosus: Comment: Chest pain and pericardial fluid, August 2022. Recurrence March 2023 Code(s): I31.9 - Disease of pericardium, unspecified; M32.12 - Pericarditis in systemic lupus erythematosus Category: Medical Plan In general they are beginning to find acceptable treatments for her autoimmune/inflammatory disorder. She is feeling better than she has felt in a long time but she still has some remaining challenges with her energy, her GI system and shortness of breath. She continued to have nausea, but was not taking reglan scheduled. She uses the bentyl mostly when she goes out as she has cramping but with her uneven peristalsis she at times struggles with BM's. She has a lot of cramping prior to a BM. She is trying to be active, but also struggle with dyspnea. She is seeing cardiology tomorrow. He sees Dr. Freed for respiratory and is clear from this standpoint but will be awaiting cardiac clearance. There are no prior problems with anesthesia or sedation. There are no infectious disease problems. Given her connective tissue and general inflammation I think a repeat EGD is prudent to make sure she does not have PUD with her hx of gastritis. ROV 6 mos and after EGD. Orders: Orders C Reactive Protein Today I31.9 - Disease of pericardium, unspecified, M32.12 - Pericarditis in systemic lupus erythematosus, M32.13 - Lung involvement in systemic lupus erythematosus EGD - GI Use Only Today R11.0 - Nausea, Z87.19 - Personal history of other diseases of the digestive system Medications: New dicyclomine 20 mg PO BID PRN 60 tabs 6RF SPASMS K58.2 - Mixed irritable bowel syndrome Refilled dicyclomine 20 mg PO BID PRN 180 tabs 1RF SPASMS K58.2 - Mixed irritable bowel syndrome metoclopramide HCl 10 mg PO TID 270 tabs 1RF K59.9 - Functional intestinal disorder, unspecified omeprazole 40 mg PO DAILY 30 caps 6RF omeprazole 40 mg PO DAILY 90 caps 1RF Coding Level of Care Code Est Pt Level 3 (72812) Diagnoses Nausea R11.0 Small bowel motility disorder K59.9 Hx of gastritis Z87.19 Irritable bowel syndrome with both constipation and diarrhea K58.2 Systemic lupus erythematosus with lung involvement, unspecified SLE type M32.13 Systemic lupus erythematosus organ involvement: lung involvement Systemic lupus erythematosus type: unspecified Esophageal spasm K22.4 Abdominal bloating R14.0 Pericarditis associated with systemic lupus erythematosus I31.9; M32.12
[2024-06-10 08:56] VITALS: BP 130/62; PULSE 66; BMI 30.9
== END 2024-06-10 11:00 | disposition home or self-care (01) ==
PROVIDERS: PCP Internal Medicine; Visit Provider Nurse Practitioner
DX: R11.0 Nausea (principal); K59.9 Functional intestinal disorder, unspecified; Z87.19 Personal history of other diseases of the digestive system; K58.2 Mixed irritable bowel syndrome; M32.13 Lung involvement in systemic lupus erythematosus; K22.4 Dyskinesia of esophagus; R14.0 Abdominal distension (gaseous); I31.9 Disease of pericardium, unspecified; M32.12 Pericarditis in systemic lupus erythematosus
CPT/HCPCS: 99213

== ENCOUNTER 2024-06-10 08:46 | Outpatient (REF) | payer OTHER, SELFPAY ==
[2024-06-10 10:36] LABS: MANUAL DIFF FLAG NO
[2024-06-10 10:59] LABS: Basophils Absolute Auto 0.1 X10*3/uL (0.0-0.2); Eosinophils Absolute Auto 0.4 X10*3/uL (0.0-0.4); Eosinophils Percent Auto 5.5 % (0-4); Hematocrit 42.5 % (37.0-47.0); Imm Gran Abs Auto 0.03 X10*3/uL (0.00-0.03); Imm Gran Pct Auto 0.4 % (0.0-0.4); Lymphocytes Absolute Auto 2.1 X10*3/uL (1.2-4.9); Lymphocytes Percent Auto 30.3 % (20-40); Mean Corpuscular HGB Conc 35.3 g/dl (31.0-35.0); Mean Corpuscular Hemoglobin 32.2 pg (27.0-33.0); Mean Corpuscular Volume 91.2 fL (80.0-98.0); Mean Platelet Volume 10.3 fL (9.4-12.3); Monocytes Absolute Auto 0.6 X10*3/uL (0.1-1.2); Monocytes Percent Auto 9.2 % (2-11); Neutrophils Absolute Auto 3.7 x10*3/uL (2.0-8.3); Neutrophils Percent Auto 53.6 % (45-73); Platelet Count 234 X10*3/uL (160-400); Red Blood Count 4.66 X10*6/uL (4.20-5.50); Red Cell Distribution Width 13.2 % (11.0-16.0); White Blood Count 6.9 X10*3/uL (4.8-10.8)
[2024-06-10 11:27] LABS: Alanine Aminotransferase 24 U/L (0-31); Albumin Level 4.3 g/dL (3.5-5.0); Alkaline Phosphatase 82 U/L (39-117); Anion Gap 11 (12-20); Aspartate Amino Transferase 28 U/L (5-31); Bilirubin Total 0.3 mg/dL (0.0-1.0); Blood Urea Nitrogen 16 mg/dL (9-16); C Reactive Protein 0.21 mg/dL (< or = 0.50); Calcium 8.9 mg/dL (8.4-10.2); Carbon Dioxide 25 mmol/L (22-29); Chloride 111 mmol/L (96-108); Cholesterol 198 mg/dL (<200); Estimated Glomerular Filt Rate > 60; Glucose Random 85 mg/dL (60-115); HDL Cholesterol 51 mg/dL (>40); LDL Cholesterol Calculated 118 mg/dL (<100); Potassium 4.8 mmol/L (3.3-5.1); Sodium 142 mmol/L (135-145); Total Protein 7.1 g/dL (6.5-8.0); Triglycerides 148 mg/dL (<150)
[2024-06-10 11:39] LABS: Erythrocyte Sedimentation Rate 2 MM/HR (0-20)
[2024-06-11 12:52] LABS: DHEA Sulfate 7 mcg/dL (5-167)
== END 2024-06-10 08:47 | disposition home or self-care (01) ==
LOC: HO.LAB 08:46
PROVIDERS: Absent Provider Student in an Organized Health Care Education/Training Program; PCP Internal Medicine; Referring Provider Student in an Organized Health Care Education/Training Program; Visit Provider Nurse Practitioner
DX: M32.13 Lung involvement in systemic lupus erythematosus (principal); I31.9 Disease of pericardium, unspecified; M32.12 Pericarditis in systemic lupus erythematosus; R79.89 Other specified abnormal findings of blood chemistry; R53.83 Other fatigue; I30.0 Acute nonspecific idiopathic pericarditis; E78.5 Hyperlipidemia, unspecified
CPT/HCPCS: 36415; 80053; 80061; 82533; 82627; 85025; 85652; 86140

== ENCOUNTER 2024-06-11 08:24 | Outpatient (REF) | payer OTHER, SELFPAY ==
[2024-06-11 09:38] LABS: Anion Gap 9 (12-20); Blood Urea Nitrogen 13 mg/dL (9-16); Calcium 8.8 mg/dL (8.4-10.2); Carbon Dioxide 25 mmol/L (22-29); Chloride 113 mmol/L (96-108); Estimated Glomerular Filt Rate > 60; Glucose Random 86 mg/dL (60-115); Potassium 4.6 mmol/L (3.3-5.1); Sodium 142 mmol/L (135-145)
[2024-06-11 09:46] LABS: B Type Natriuretic Peptide 83 pg/mL (<100)
[2024-06-17 15:09] LABS: Adrenocorticotropic Hormone 24 pg/mL (6-50)
== END 2024-06-11 08:25 | disposition home or self-care (01) ==
LOC: HO.LAB 08:24
PROVIDERS: Absent Provider Student in an Organized Health Care Education/Training Program; PCP Internal Medicine; Visit Provider Internal Medicine Cardiovascular Disease
DX: Z01.810 Encounter for preprocedural cardiovascular examination (principal); R79.89 Other specified abnormal findings of blood chemistry; R53.83 Other fatigue; R06.09 Other forms of dyspnea; I47.10 Supraventricular tachycardia, unspecified; M32.12 Pericarditis in systemic lupus erythematosus; I31.9 Disease of pericardium, unspecified
CPT/HCPCS: 36415; 80048; 82024; 83880; 93005

== ENCOUNTER 2024-06-11 08:24 | Outpatient (AMB) | payer OTHER, SELFPAY ==
[2024-06-11 08:29] VITALS: BP 120/78; PULSE 69; BMI 31.1
--- NOTE | 2024-06-11 08:29 | MHC.OFFVIS ---
Vital Signs 06/11/24 08:29 Height 5 ft 2 in Weight 170 lb BMI 31.1 BP 120/78 Blood Pressure Location Lt brachial Position Sitting Pulse 69 Intake Visit Reasons: 1 year fu Intake Note: 1 year follow-up with ekg c/o leg swelling in the morning she is up 1 lbs from yesterday and sob Manager Of Program Required: No Grade Checker: Grade Checker Present Accompanied by: Spouse Allergies pollen extracts Allergy (Intermediate, Verified 06/10/24 09:01) Runny Nose atorvastatin Allergy (Mild, Verified 06/10/24 09:01) muscle pain blue dye Allergy (Mild, Verified 06/10/24 09:01) Unknown iodine Allergy (Mild, Verified 06/10/24 09:01) Itching red dye Allergy (Mild, Verified 06/10/24 09:01) Unknown tree and shrub pollen Allergy (Mild, Verified 06/10/24 09:01) Nasal congestion erythromycin base Allergy (Verified 06/10/24 09:01) Nausea and Vomiting azathioprine Adverse Reaction (Severe, Verified 06/10/24 09:01) vomiting and diarrhea stevioside [From Stevia] Adverse Reaction (Verified 06/10/24 09:01) Abdominal Pain green dye Allergy (Severe, Uncoded 05/20/24 13:25) Headache molds and smuts Allergy (Severe, Uncoded 05/20/24 13:25) hadache Medication List - Last Reconciled 06/11/24 by Moshe Rhodes MD acyclovir 400 mg PO BID cyclobenzaprine 10 mg PO BID cyclosporine 0.05% (Restasis) 1 drp ophthalmic (eye) Q12H dicyclomine 20 mg PO BID PRN hydroxychloroquine 200 mg PO DAILY Kineret (anakinra) 100 mg (0.67 mL) subcut DAILY NS lorazepam 0.5 mg PO DAILY PRN metoclopramide HCl 10 mg PO TID metoprolol succinate ER 100 mg PO DAILY omeprazole 40 mg PO DAILY ondansetron HCl 8 mg PO DAILY 15 days rosuvastatin 10 mg PO BEDTIME sumatriptan 20 mg/actuation 20 mg intranasal Q2H PRN triamcinolone acetonide (Nasacort Allergy) 1 spray intranasal DAILY verapamil ER 120 mg PO DAILY HPI Comments Details: Divina comes for follow-up of recurrent idiopathic pericarditis. Since being on anakinra she says overall inflammatory syndrome has improved. She has not had any recurrent pericarditis. She feels better. Although she notices that she has 2 days of activity and then she feels very fatigued and tired following day. She also has intermittent episodes of shortness of breath including at rest. She also has intermittent leg edema. She has no clear orthopnea, PND. No exertional chest pain. No reproducible exertional shortness of breath. She has not had any recurrent episodes of SVT although she says occasionally when she gets short of breath she notices heart is racing. She is not obtain an EKGs during these time. Denies lightheadedness, syncope. Blood pressure is well controlled. She has been followed closely by rheumatology as well as endocrinology. [facility] Medical History (Updated 06/11/24 @ 09:10 by Moshe Rhodes MD) Hx of gastritis Pain of multiple sites Pneumonitis Pericardial effusion Acute pericardial effusion Low serum cortisol level Fatigue Pulmonary nodule SVT (supraventricular tachycardia) Dyspnea Esophageal candidiasis Ileitis Abdominal pain Inflammation of small intestine History of anesthesia complications Hx of chest pain Fusion of spine, cervical region TMJ syndrome Cervical radiculopathy Elevated cholesterol Osteoarthritis Hx of migraine headaches Multinodular thyroid Surgical History Hx of shoulder surgery S/P thyroid biopsy H/O colonoscopy History of esophagogastroduodenoscopy (EGD) History of spinal fusion Hx of dilation and curettage Hx of cholecystectomy Hx of tonsillectomy Hx of tubal ligation Family History Mother Diabetes Uterine cancer Hypertension Father Diabetes Hypertension Stroke Family/Other Colon cancer Social History Household Members: Spouse Housing: House Are you a primary healthcare administrative assistant to a significant other at home: No Do you presently have visiting nurse or other home services: No Alcohol intake: never Patient Tobacco Use Status: Former Tobacco user Tobacco use type: Cigarette Cigarettes Per Day: 10 Years Smoked: 5 Substance Use Type: Marijuana service: No Current occupational status: employed Current occupation: right hand dominant Review of Systems Const Denies chills, Denies fatigue, Denies fever(s), Denies frequent falls, Denies weakness, Denies weight gain and Denies weight loss ENT Denies dizziness Card Denies chest pain, Denies leg edema, Denies lightheadedness, Denies palpitations, Denies dyspnea, Denies dyspnea on exertion, Denies orthopnea and Denies other (loss of consciousness) Resp Denies cough, Denies dyspnea and Denies dyspnea on exertion GI Denies hematochezia and Denies change in stool character Musc Denies abnormal gait, Denies muscle weakness, Denies numbness, Denies radiating pain into limb and Denies tingling Neuro Denies Abnormal speech present, Denies abnormal gait, Denies dizziness, Denies frequent falls, Denies numbness, Denies tingling and Denies weakness Endo Denies fatigue and Denies palpitations Physical Exam Vital Signs: Last Vital Signs Pulse 69 06/11/24 08:29 BP 120/78 06/11/24 08:29 BMI result Body Mass Index 31.1 Const General: cooperative, comfortable, no acute distress, alert, awake, Physically active and well groomed Nutritional Appearance: average body habitus Orientation/consciousness: patient oriented x3 Limitations: no limitations HEENT Head: Yes normocephalic and Yes atraumatic Neck Neck: Yes trachea midline, Yes supple and Yes no JVD Chest Chest palpation & inspection: normal inspection of the chest Resp Effort & Inspection: normal respiratory effort Auscultation: clear to auscultation bilaterally Cardio Jugular venous distension: no JVD Palpation: normal PMI Rate: regular rate Rhythm: regular rhythm Heart sounds: S1 normal heart sound present, S2 normal heart sound present, no click, no gallops, no murmurs and no rubs Bruits: no carotid bruits GI Auscultation: normal bowel sounds Skin General skin exam: no rashes or lesions noted Neuro General: patient oriented x3 and no focal motor deficits Speech: No Abnormal speech present Extrem General: Yes no clubbing, cyanosis or edema Psych Appearance: grossly normal Office Procedures EKG Details: EKG shows normal sinus rhythm normal EKG [id number], Complete Assessment & Plan Assessment & Plan (1) Preoperative cardiovascular examination: Code(s): Z01.810 - Encounter for preprocedural cardiovascular examination Plan: Preoperative cardiovascular risk stratification for this middle-aged woman with no significant cardiac underlying structural issues or any signs of heart failure. Clinically going for low risk procedure. She is optimized with low risk for perioperative cardiovascular morbidity mortality. (2) SVT (supraventricular tachycardia): Code(s): I47.10 - Supraventricular tachycardia, unspecified Category: Medical Plan: Supraventricular tachycardia currently suppressed on dual therapy with metoprolol and verapamil which also helping control blood pressure. Continue the same. Avoidance of stimulants was discussed. Advised to obtain a EKG during these episodes of rapid heart rate to see if there is short bursts of SVT. At this point time management will be medical. Stress mitigation strategies was discussed. (3) Dyspnea: Code(s): R06.00 - Dyspnea, unspecified Category: Medical Qualifiers: Dyspnea type: dyspnea on exertion Qualified Code(s): R06.09 - Other forms of dyspnea Plan: Intermittent shortness of breath which is unexplained. Clinically she has no signs of fluid overload. In the past she has had no structural heart issues. Will check echocardiogram again to assess for LV dysfunction which can be associated with lupus. Also suggest a BNP although likelihood of elevated BNP is low. (4) Pericarditis associated with systemic lupus erythematosus: Comment: Chest pain and pericardial fluid, August 2022. Recurrence March 2023. Hydroxychloroquine minimal effective Colchicine minimally effective Azathioprine not tolerated kineret 11/2023 effective Code(s): I31.9 - Disease of pericardium, unspecified; M32.12 - Pericarditis in systemic lupus erythematosus Category: Medical Plan: Prior recurrent pericarditis now suspected to be related to systemic autoimmune disease. Currently on anakinra a a which she is tolerating well. Continue the same. Follow-up with Rheumatology. Will follow up in the clinic in 1 year's time, sooner p.r.n.. Thank you for allowing me to partake in his care Orders: Orders CA echo transthoracic complete Today R06.09 - Other forms of dyspnea B Type Natriuretic Peptide Today R06.09 - Other forms of dyspnea Coding Level of Care Code Est Pt Level 4 (15067) Complex EM visit Add On G2211 Diagnoses Preoperative cardiovascular examination Z01.810 SVT (supraventricular tachycardia) I47.10 Dyspnea on exertion R06.09 Dyspnea type: dyspnea on exertion Pericarditis associated with systemic lupus erythematosus I31.9; M32.12 CPT Codes EKG - CPT: 10297-[id number], Complete ([id number])
== END 2024-06-11 08:54 | disposition home or self-care (01) ==
PROVIDERS: PCP Internal Medicine; Visit Provider Internal Medicine Cardiovascular Disease
DX: Z01.810 Encounter for preprocedural cardiovascular examination (principal); I47.10 Supraventricular tachycardia, unspecified; R06.09 Other forms of dyspnea; I31.9 Disease of pericardium, unspecified; M32.12 Pericarditis in systemic lupus erythematosus
CPT/HCPCS: 93010; 99214; G2211

== ENCOUNTER 2024-06-19 08:47 | Outpatient (AMB) | payer OTHER, SELFPAY ==
--- NOTE | 2024-06-19 08:49 | A.OFFVIS_ITS ---
Vital Signs 3 06/19/24 08:50 Height 5 ft 2 in Weight 168 lb BMI 30.7 BP 130/84 Blood Pressure Location Lt brachial Position Sitting Pulse 65 Pulse Source Pulse Oximeter Intake Visit Reasons: Nontoxic multinodular goiter Intake Note: Patient present today for Nontoxic multinodular goiter. Director Of Compensation Required: No Accompanied by: Sponsored Dependent Allergies pollen extracts Allergy (Intermediate, Verified 06/19/24 08:54) Runny Nose atorvastatin Allergy (Mild, Verified 06/19/24 08:54) muscle pain blue dye Allergy (Mild, Verified 06/19/24 08:54) Unknown iodine Allergy (Mild, Verified 06/19/24 08:54) Itching red dye Allergy (Mild, Verified 06/19/24 08:54) Unknown tree and shrub pollen Allergy (Mild, Verified 06/19/24 08:54) Nasal congestion erythromycin base Allergy (Verified 06/19/24 08:54) Nausea and Vomiting azathioprine Adverse Reaction (Severe, Verified 06/19/24 08:54) vomiting and diarrhea stevioside [From Stevia] Adverse Reaction (Verified 06/19/24 08:54) Abdominal Pain green dye Allergy (Severe, Uncoded 06/19/24 08:54) Headache molds and smuts Allergy (Severe, Uncoded 06/19/24 08:54) hadache HPI Comments Details: 58 YO F with PMHx multinodular thyroid who is seen in F/U for a NTMNG. Also getting evaluated for low cortisol level. HPI from prior visit Was initially diagnosed with multinodular thyroid in 2020 with thyroid US revealing bilateral thyroid nodules. She underwent FNA biopsy of a LMP 1.6 cm thyroid nodule 11/18/2020 with benign (bethesda category II) cytology. Ultrasound 11/2021 showed stable size of the left midpole 1.6 cm nodule. Most recent thyroid ultrasound 12/2023 showed significant increase in the size of the left midpole nodule now measuring 2 cm in the maximum dimension. This meets criteria for repeat FNA. Interval history Underwent FNA biopsy 05/07/2024 of the left midpole 2 cm nodule which came back as AUS with microfollicular arrangement (Thornton category 3). Afirma benign. Reports difficulty swallowing with some dry foods. No pressure sensation when she lays down flat Low cortisol low cortisol levels of 3.8 at 9 AM on 04/17/2024 Has had 2 consucossions , once in high school, once in 2020 when she fell down the stairs, pretty severe head to her head. Gained 20 lbs since 2022 but in 2023 weight stable Complains of nausea daily Reports light headednes and dizziness Got prednsione tapers 4 times for pericarditis in early 2023 off any kind of steroids since September . Labs from 05/06/2024: Showed Cortisol level again in the lower side at 5.9 from 08:00, acth of 23, DHEA-S level of 5. Otherwise showed normal thyroid function, undetectable estradiol with elevated FSH of 126 consistent with being postmenopausal, LH of 43.3. Prolactin of 6. Normal electrolytes renin and aldosterone level. Interval history 06/04/2024, cosyntropin stimulation testing showed robust response with a baseline cortisol of 4.8, 30 minute cortisol of 22.4 in 60 minute cortisol level of 25.4. 06/10/2024, 10:00 cortisol of 3, with DHEA-S of 7, 06/11/2024 ACTH at 09:00 of 24. NAusea same Lighthadedness and dizziness better. Weigth stable Physical exam General: sitting comfortably in no acute distress HEENT: normocephalic/atraumatic, Neck: supple, palpable 2 cm left-sided nodule Cardiac: normal heart sounds Pulm: normal breath sounds B/L, no added breath sounds Abd: not distended Extremities: no edema, no signs of myxedema Neuro: AAO x3, Speech: normal, no facial droop, moving all 4 extremities Labs: Laboratory Tests 12/15/21 08:50 TSH 0.72 Free T4 1.10 Laboratory Tests 02/28/24 09:12 TSH 0.57 Free T4 0.79 Laboratory Tests 03/04/24 04/17/24 15:21 09:30 Sodium 143 Potassium 4.5 Albumin 4.1 Random Cortisol 3.8 Laboratory Tests 04/17/24 05/06/24 09:30 07:58 Sodium 142 Potassium 4.2 Renin 1.78 Aldosterone 26 TSH 0.77 Free T4 1.01 Estradiol Ultra LCMSMS <2 FSH 126.7 H Luteinizing Hormone 43.3 Prolactin 6.0 DHEA Sulfate 5 Somatomedin-C 108 Somato-C Z-Score Female -0.4 Random Cortisol 3.8 5.9 ACTH 23 Laboratory Tests 05/06/24 06/04/24 06/10/24 07:58 07:45 10:34 Sodium 142 Potassium 4.8 Alpha Subunit Marker 0.6 Renin 1.78 Aldosterone 26 DHEA Sulfate 5 7 Random Cortisol 3.0 Cortisol Baseline 4.8 Cortisol 30 Minute 22.4 Cortisol 60 Minute 25.4 ACTH 06/11/24 09:13 Sodium 142 Potassium 4.6 Alpha Subunit Marker Renin Aldosterone DHEA Sulfate Random Cortisol Cortisol Baseline Cortisol 30 Minute Cortisol 60 Minute ACTH 24 Imaging US THYROID 01/14/24 CLINICAL INFORMATION: Goiter, left thyroid benign biopsy October 2020. COMPARISON: Thyroid ultrasound 12/16/2021, 10/28/2020. TECHNIQUE: Linear transducer grayscale and color Doppler examination with attention to the region of the thyroid. FINDINGS: SIZE: Measurements of the thyroid lobes and nodules are given in sagittal, anteroposterior and transverse dimensions respectively. Right Thyroid Lobe: 5.2 x 1.4 x 2.0 cm, volume 7.2 mL. Parenchyma: The gland echotexture is heterogeneous. Thyroid vascularity is normal. Left Thyroid Lobe: 4.5 x 2.0 x 2.3 cm, volume 10.7 mL. Parenchyma: The gland echotexture is heterogeneous. Thyroid vascularity is normal. Isthmus: 0.5 cm in maximum AP dimension. Estimated total number of nodules greater than or equal to 1 cm: 2. Legal Support Analyst nodules are described as follows: 1. Location: Right mid to lower. Size: 1.0 x 0.7 x 0.7 cm, volume 0.2 mL. Previously 0.5 x 0.3 x 0.4 cm, volume 0.03 mL. Nodule characteristics: Composition: Mixed cystic and solid (1). Echogenicity: Hypoechoic (2). Shape: Not taller than wide (0). Margins: Ill-defined (0). Echogenic Foci: None (0). ACR TI-RADS total points: 3, previously 0 ACR TI-RADS category: 3, previously 1 2. Location: Left mid. Size: 2.0 x 1.7 x 1.5 cm, volume 2.5 mL. Previously 1.6 x 1.3 x 1.3 cm, volume 1.5 mL. Nodule characteristics: Composition: Solid (2). Echogenicity: Hypoechoic (2). Shape: Taller than wide (3). Margins: Ill-defined (0). Echogenic Foci: None (0). ACR TI-RADS total points: 7, previously 6 ACR TI-RADS category: 5, previously 4 3. Location: Left lower. Size: 0.8 x 0.6 x 0.7 cm, volume 0.2 mL. Previously 1.0 x 0.6 x 0.7 cm, volume 0.2 mL. Nodule characteristics: Composition: Solid (2). Echogenicity: Hypoechoic (2). Shape: Not taller than wide (0). Margins: Ill-defined (0). Echogenic Foci: None (0). ACR TI-RADS total points: 4, previously 3 ACR TI-RADS category: 4, previously 3 NODES: No lymphadenopathy is seen in the tissue surrounding the thyroid gland. US/US thyroid IMPRESSION: A 2.0 cm left mid TR 5 thyroid nodule has increased in size and meets criteria for biopsy. Fine-needle aspiration recommended. Thyroid US: 12/16/2021 SIZE: Measurements of the thyroid lobes and nodules are given in sagittal, anteroposterior and transverse dimensions respectively. Right Thyroid Lobe: 5.5 x 1.9 x 2.0 cm, volume 11.2 mL. Previously 5.3 x 2.3 x 1.8 cm, volume 11.5 mL. Parenchyma: The gland echotexture is homogeneous. Thyroid vascularity is normal. Left Thyroid Lobe: 4.7 x 2.1 x 2.3 cm, volume 11.4 mL. Previously 5.1 x 2.2 x 2.1 cm, volume 12.3 mL. Parenchyma: The gland echotexture is homogeneous. Thyroid vascularity is normal. Isthmus: 0.4 cm in maximum AP dimension. Previously 0.3 cm. Estimated total number of nodules greater than or equal to 1 cm: 2. Legal Support Analyst nodules are described as follows: 1.? Location: Right mid. ?? ? Size: 0.45 x 0.25 x 0.42 cm, volume 0.03 mL. ?? ? Previously: 0.40 x 0.30 x 0.30 cm, volume 0.02 mL. ?? ? Nodule characteristics: ?? ? Composition: Spongiform (0). ?? ? Echogenicity: Anechoic (0). ?? ? Shape: Not taller than wide (0). ?? ? Margins: Smooth (0). ?? ? Echogenic Foci: None (0).? ACR TI-RADS total points: 0 Previous: 4 ?? ? ACR TI-RADS category: 1 Previous: 4 ? Significant change in size (>/= 20% in 2 dimensions and minimal increase of 2 mm or 50% or greater increase in volume): Yes ?? ? Change in features: Yes ?? ? Change in ACR TI-RADS risk category: Yes 2.? Location: Right superior. ?? ? Size: 0.40 x 0.21 x 0.34 cm, volume 0.02 mL. ?? ? Previously: Not seen on the previous study. ?? ? Nodule characteristics: ?? ? Composition: Cystic(0). ?? ? ACR TI-RADS total points: 0 ?? ? ACR TI-RADS category: 1 3.? Location: Left mid. ?? ? Size: 1.6 x 1.3 x 1.3 cm, volume 1.5 mL. ?? ? Previously: 1.6 x 1.0 x 1.2 cm, volume 1.0 mL. ?? ? Nodule characteristics: ?? ? Composition: Mixed cystic and solid (1). ?? ? Echogenicity: Hypoechoic (2). ?? ? Shape: Not taller than wide (0). ?? ? Margins: Smooth (0). ?? ? Echogenic Foci: Punctate echogenic foci (3). ? ACR TI-RADS total points: 6 Previous: 6 ?? ? ACR TI-RADS category: 4 Previous: 4 ? Significant change in size (>/= 20% in 2 dimensions and minimal increase of 2 mm or 50% or greater increase in volume): No ?? ? Change in features: No ?? ? Change in ACR TI-RADS risk category: No 4.? Location: Left mid. ?? ? Size: 1.0 x 0.56 x 0.73 cm, volume 0.21 mL. ?? ? Previously: 1.0 x 0.80 x 0.90 cm, volume 0.40 mL. ?? ? Nodule characteristics: ?? ? Composition: Mixed cystic and solid (1). ?? ? Echogenicity: Hypoechoic (2). ?? ? Shape: Not taller than wide (0). ?? ? Margins: Smooth (0). ?? ? Echogenic Foci: None (0).? ACR TI-RADS total points: 3 Previous: 3 ?? ? ACR TI-RADS category: 3 Previous: 3 ? Significant change in size (>/= 20% in 2 dimensions and minimal increase of 2 mm or 50% or greater increase in volume): No ?? ? Change in features: No ?? ? Change in ACR TI-RADS risk category: No NODES: No lymphadenopathy is seen in the tissue surrounding the thyroid gland. [facility] Medical History (Updated 06/11/24 @ 09:10 by Moshe Rhodes MD) Hx of gastritis Pain of multiple sites Pneumonitis Pericardial effusion Acute pericardial effusion Low serum cortisol level Fatigue Pulmonary nodule SVT (supraventricular tachycardia) Dyspnea Esophageal candidiasis Ileitis Abdominal pain Inflammation of small intestine History of anesthesia complications Hx of chest pain Fusion of spine, cervical region TMJ syndrome Cervical radiculopathy Elevated cholesterol Osteoarthritis Hx of migraine headaches Multinodular thyroid Surgical History Hx of shoulder surgery S/P thyroid biopsy H/O colonoscopy History of esophagogastroduodenoscopy (EGD) History of spinal fusion Hx of dilation and curettage Hx of cholecystectomy Hx of tonsillectomy Hx of tubal ligation Family History Mother Diabetes Uterine cancer Hypertension Father Diabetes Hypertension Stroke Family/Other Colon cancer Social History Household Members: Spouse Housing: House Are you a primary managed care provider to a significant other at home: No Do you presently have visiting nurse or other home services: No Alcohol intake: never Patient Tobacco Use Status: Former Tobacco user Tobacco use type: Cigarette Cigarettes Per Day: 10 Years Smoked: 5 Substance Use Type: Marijuana service: No Current occupational status: employed Current occupation: right hand dominant Assessment & Plan Assessment & Plan (1) Multinodular thyroid: Code(s): E04.2 - Nontoxic multinodular goiter Category: Medical Plan: 58-year-old female with no family history of thyroid cancer, with no personal history of head or neck radiation Was initially diagnosed with multinodular thyroid in 2020 with thyroid US revealing bilateral thyroid nodules. She underwent FNA biopsy of a LMP 1.6 cm thyroid nodule 11/18/2020 with benign (bethesda category II) cytology. Ultrasound 11/2021 showed stable size of the left midpole 1.6 cm nodule. Most recent thyroid ultrasound 12/2023 showed significant increase in the size of the left midpole nodule now measuring 2 cm in the maximum dimension. This meets criteria for repeat FNA. Underwent FNA biopsy 05/07/2024 of the left midpole 2 cm nodule which came back as AUS with microfollicular arrangement (Thornton category 3). Afirma benign. We will plan to repeat an ultrasound in 1 year. Plan: -ordered thyroid ultrasound to be done in 1 year prior to follow up in May 2025 (2) Low serum cortisol level: Code(s): R79.89 - Other specified abnormal findings of blood chemistry Category: Medical Plan: Patient is also complaining of excessive fatigue, nausea, over the past few months. Her weight has been stable. She describes difficulty losing weight. She was noted to have a low cortisol of 3.8 from March 2024. No prior history of adrenal insufficiency. She has had multiple courses of prednisone tapers in 2022, early 2023. Has not been on any kind of steroids per patient since September 2023. Could possibly have some degree of suppression of her cortisol excess due to exogenous steroid use over long period of time. Labs from 05/06/2024: Showed Cortisol level again in the lower side at 5.9 from 08:00, acth of 23, DHEA-S level of 5. Otherwise showed normal thyroid function, undetectable estradiol with elevated FSH of 126 consistent with being postmenopausal, LH of 43.3. Prolactin of 6. Alpha subunit normal. Normal electrolytes renin and aldosterone level. She is also describing history of concussions in the past which were pretty severe, and with her history of weight gain, overall fatigue and poor quality of life, however results from 05/16/2024 showed normal IGF-1 Given concerns for possible adrenal insufficiency we proceeded with cosyntropin stimulation testing. 06/04/2024, cosyntropin stimulation testing showed robust response with a baseline cortisol of 4.8, 30 minute cortisol of 22.4 in 60 minute cortisol level of 25.4. 06/10/2024, 10:00 cortisol of 3, with DHEA-S of 7, 06/11/2024 ACTH at 09:00 of 24. Given robust response to cosyntropin stimulation testing she does not have adrenal insufficiency. It could be that her baseline cortisol levels are somewhat on the lower side due to exogenous steroid use in the past causing some degree of mild suppression however she has a good enough robust response to stimulate steroid production and stress response. I would say she has good adrenal reserve at this point. No need for further follow up for low cortisol level, primary care physician should workup other causes of fatigue and nausea. (3) Fatigue: Code(s): R53.83 - Other fatigue Category: Medical Qualifiers: Fatigue type: unspecified Qualified Code(s): R53.83 - Other fatigue Plan: See above Plan See above Orders: Orders 2 US thyroid 05/13/25 E04.2 - Nontoxic multinodular goiter Patient Instructions: Do thyroid ultrasound in April 2025 and follow up in 1 year to discuss results Coding Level of Care Code Est Pt Level 3 (14766) Diagnoses Multinodular thyroid E04.2 Low serum cortisol level R79.89 Fatigue, unspecified type R53.83 Fatigue type: unspecified
[2024-06-19 08:50] VITALS: BP 130/84; PULSE 65; BMI 30.7
== END 2024-06-19 09:09 | disposition home or self-care (01) ==
PROVIDERS: PCP Internal Medicine; Visit Provider Student in an Organized Health Care Education/Training Program
DX: E04.2 Nontoxic multinodular goiter (principal); R79.89 Other specified abnormal findings of blood chemistry; R53.83 Other fatigue
CPT/HCPCS: 99213

== ENCOUNTER → 2024-06-19 08:47 | Outpatient (BNVA) | payer OTHER, SELFPAY | PROVIDERS: PCP Internal Medicine; Visit Provider Student in an Organized Health Care Education/Training Program ==

== ENCOUNTER → 2024-06-20 08:46 | Outpatient (REF) | payer OTHER, SELFPAY ==
--- NOTE | 2024-06-20 08:48 | CA_ITS ---
Transthoracic Echocardiogram Patient (Last, First, Middle): Cookie Nielsen, Gender: Female Date of : 1965 Age: 58 Procedure Date: 06/20/2024 Procedure Type: Transthoracic Echocardiogram Location: OP Height: 157.48 cm Weight: 76.2 kg BSA: 1.77 m2 Heart Rate: 63 bpm BP: 130 / 84 mmHg Oxyacetylene Welder: SALOMON Referring MD: Moshe Rhodes MD Construction Checker: Moshe Rhodes MD Symptoms: R06.09 - Other forms of dyspnea Study Quality: Adequate ECG Rhythm: Sinus Conclusions: - Essentially normal study Findings Left Ventricle Normal left ventricular size, thickness, and systolic function. The visually estimated ejection fraction is between 55-60%. Spectral Doppler is indicative of a normal filling pattern. Right Ventricle Normal right ventricular cavity size and systolic function. Atria Both atria are normal in size. There is no evidence of interatrial shunt. Aortic Valve Normal aortic valve structure and function. There is no aortic valve stenosis. There is no aortic valve regurgitation. Mitral Valve Likely normal mitral valve structure and function. There is trace mitral valve regurgitation. There is no mitral valve stenosis. Pulmonic Valve The pulmonic valve was not well visualized. Tricuspid Valve Likely normal tricuspid valve structure and function. There is trace tricuspid valve regurgitation. The right ventricular systolic pressure is normal. The right ventricular systolic pressure is 18 mmHg. Normal right atrial pressure. There is no evidence of pulmonary hypertension. Venous The inferior vena cava is normal in size and collapses greater than 50% with inspiration. Pericardium/Pleural There is no evidence of pericardial effusion. Prior Study Comparison Changes noted compared to prior study dated: 08/13/2023. no pericardial effusion noted Measurements 2D Linear Measurements IVSd: 0.71 0.6-0.9/0.6-1.0 cm LVIDd: 4.75 3.9-5.3/4.2-5.9 cm LVIDd Index: 2.68 2.4-3.2/2.2-3.1 cm/m2 LVIDs: 2.32 2.0-3.6 cm LVPWd: 0.66 0.7-1.1 cm LA Diam: 3.40 2.7-3.8/3.0-4.0 cm LAIDs Index: 1.92 1.5-2.3 cm/m2 LV Mass: 127.28 67-162/88-224 g LV Mass Index: 71.91 43-95/49-115 g/m2 LVOT Diam: 2.10 3.0+(-)1.3 cm 2D Systolic Function EF 4C: 53.30 >55% EF 2C: 58.10 >55% EF BiP: 56.70 >55% Mitral Valve MV Pk E: 0.65 MV PK A: 0.47 MV Decel Time: 252.00 E/A: 1.40 E'Lateral: 8.59 E'Medial: 7.18 E/E' Med: 9.00 E/E' Lat: 7.60 PHT: 74.00 MVA PHT: 2.97 Decel [place]: 2.57 Aortic Valve AoV Pk Alonso: 0.92 AoV Pk Grad: 3.00 SANDRA: 3.25 LVOT LVOT Pk Alonso: 0.87 LVOT Mn Alonso: 0.60 LVOT VTI: 0.18 LVOT Pk Grad: 3.00 LVOT Mn Grad: 2.00 LVOT Diam: 2.10 LVOT Area: 3.46 Diastolic Function MV Pk E: 0.65 MV Pk A: 0.47 E/A: 1.40 E'Medial: 7.18 E/E' Med: 9.00 E' Laterial: 8.59 E/E' Lat: 7.60 Right Ventricle TAPSE (mm): 16.60 TVS' Alonso: 9.14 Tricuspid Valve TR Pk Alonso: 1.95 TR Pk Grad: 15.00 RA Press: 3.00 RVSP: 18.00 Great Vessels Aorta Sinus of Valsalva: 2.80 2.0-3.5 cm Ao Asc: 3.00 2.1-3.4 cm Ao Arch: 2.80 Pulmonary Veins Pulm Vein S/D 1.20 Pulmonary Valve PV Pk Alonso: 0.78 Peak PV Grad: 2.00 Updated in Other Vendor System with Status of Final Moshe Rhodes MD electronically signed on 06/20/2024 2:41:33 PM with status of Final
== END ==
LOC: HO.CARD 08:46
PROVIDERS: PCP Internal Medicine; Visit Provider Internal Medicine Cardiovascular Disease
DX: R06.09 Other forms of dyspnea (principal)
CPT/HCPCS: 93306

== ENCOUNTER → 2024-06-20 08:48 | Outpatient (BNV) | payer OTHER, SELFPAY | PROVIDERS: PCP Internal Medicine; Visit Provider Internal Medicine Cardiovascular Disease | DX: R06.00 Dyspnea, unspecified (principal) | CPT/HCPCS: 93306 ==

== ENCOUNTER 2024-07-03 07:51 | Outpatient (AMB) | payer OTHER, SELFPAY ==
--- NOTE | 2024-07-03 07:53 | MHC.OFFVIS ---
Vital Signs 07/03/24 07:57 Height 5 ft 2 in Weight 169 lb BMI 30.9 BP 120/72 Blood Pressure Location Rt brachial Position Sitting Pulse 70 Pulse Source Pulse Oximeter Pulse Oximetry (%) 98 Oxygen Delivery Method Room Air Intake Visit Reasons: idiopathic pericarditis Intake Note: Patient presents for idiopathic pericarditis. Allergies pollen extracts Allergy (Intermediate, Verified 07/03/24 07:56) Runny Nose atorvastatin Allergy (Mild, Verified 07/03/24 07:56) muscle pain blue dye Allergy (Mild, Verified 07/03/24 07:56) Unknown iodine Allergy (Mild, Verified 07/03/24 07:56) Itching red dye Allergy (Mild, Verified 07/03/24 07:56) Unknown tree and shrub pollen Allergy (Mild, Verified 07/03/24 07:56) Nasal congestion erythromycin base Allergy (Verified 07/03/24 07:56) Nausea and Vomiting azathioprine Adverse Reaction (Severe, Verified 07/03/24 07:56) vomiting and diarrhea stevioside [From Stevia] Adverse Reaction (Verified 07/03/24 07:56) Abdominal Pain green dye Allergy (Severe, Uncoded 06/19/24 08:54) Headache molds and smuts Allergy (Severe, Uncoded 06/19/24 08:54) hadache Medication List - Last Reconciled 07/03/24 by Zulema Ramirez MD acyclovir 400 mg PO BID cyclobenzaprine 10 mg PO BID cyclosporine 0.05% (Restasis) 1 drp ophthalmic (eye) Q12H dicyclomine 20 mg PO BID PRN hydroxychloroquine 200 mg PO DAILY Kineret (anakinra) 100 mg (0.67 mL) subcut DAILY NS lorazepam 0.5 mg PO DAILY PRN metoclopramide HCl 10 mg PO TID metoprolol succinate ER 100 mg PO DAILY omeprazole 40 mg PO DAILY ondansetron HCl 8 mg PO DAILY 15 days rosuvastatin 10 mg PO BEDTIME sumatriptan 20 mg/actuation 20 mg intranasal Q2H PRN triamcinolone acetonide (Nasacort Allergy) 1 spray intranasal DAILY verapamil ER 120 mg PO DAILY HPI Comments Details: Patient is a 58-year-old female with history of migraines, hyperlipidemia, multinodular thyroid and recurrent idiopathic pericarditis here today for follow up Interval History: Patient last seen 05/07/[address] Matta. At that time she was stable in terms of her pericarditis history however she was concerned about the side effects of anakinra. Since then, Patient continues to inject herself daily with anakinra and is overall doing well Today, She again reports no recurrence of symptoms Had recent echo which showed no evidence of pericarditis Planning to do sonabello liposuction Rheumatologic History: Initial history: This is a 58 year old female previously diagnosed with lupus by Dr. Sorto who presents for follow-up. Over the last year patient presented to the hospital multiple times for pericarditis. She has been on multiple doses of prednisone. Last dose of prednisone was October 06. Patient does not want to go back to taking prednisone due to significant weight gain. She has lost some weight since she stopped the prednisone. She stated that colchicine was started by her surgical product sales consultant at [facility] with some improvement. She stated that hydroxychloroquine has generally helped her. When she was off of it she felt much worse with worsening fatigue and body aches. Her main complaint today is her chest discomfort, shortness of breath, chest pain especially when taking a deep breath and lying on her back. She sleeps sitting down. She has noted mildly erythematous rash on her extremities and torso. She has mildly cool fingers and toes but never developed any digital ulcers. She denies any fevers. She was evaluated by surgical assistant due to recurrent diarrhea and GI symptoms. She was told that she has bowel inflammation and there is some suspicion of IBD. Her pericarditis symptoms and bowel symptoms improve when she is on prednisone. She had a lip biopsy twice and it was negative for Sjogren's. Current Rheumatology Medication(s): Plaquenil 200mg daily Anakinra 100mg SC daily [facility] Medical History (Updated 07/03/24 @ 08:43 by Zulema Ramirez MD) Hx of gastritis Pain of multiple sites Pneumonitis Pericardial effusion Acute pericardial effusion Low serum cortisol level Fatigue Pulmonary nodule SVT (supraventricular tachycardia) Dyspnea Esophageal candidiasis Ileitis Abdominal pain Inflammation of small intestine History of anesthesia complications Hx of chest pain Fusion of spine, cervical region TMJ syndrome Cervical radiculopathy Elevated cholesterol Osteoarthritis Hx of migraine headaches Multinodular thyroid Surgical History Hx of shoulder surgery S/P thyroid biopsy H/O colonoscopy History of esophagogastroduodenoscopy (EGD) History of spinal fusion Hx of dilation and curettage Hx of cholecystectomy Hx of tonsillectomy Hx of tubal ligation Family History Mother Diabetes Uterine cancer Hypertension Father Diabetes Hypertension Stroke Family/Other Colon cancer Social History Household Members: Spouse Housing: House Are you a primary eye care professional to a significant other at home: No Do you presently have visiting nurse or other home services: No Alcohol intake: never Patient Tobacco Use Status: Former Tobacco user Tobacco use type: Cigarette Cigarettes Per Day: 10 Years Smoked: 5 Substance Use Type: Marijuana service: No Current occupational status: employed Current occupation: right hand dominant Review of Systems Const Details: Review of Systems Constitutional: Denies fever, chills, weight loss ENT: Denies vision changes, eye pain or eye redness, dental caries, dry mouth GI: Denies nausea, vomiting, diarrhea, abdominal pain, change in BM Pulm: Denies SOB, BUSTILLOS, hemoptysis, wheezing Cards: Denies chest pain, palpitations Skin: Denies Raynaud's, rash, nail changes, photosensitivity, SAFETY SPEC: Denies headaches, weakness, paresthesias, recurrent falls MSK: as per HPI All other systems reviewed and are unremarkable except noted above Physical Exam Vital Signs: Last Vital Signs Pulse 70 07/03/24 07:57 BP 120/72 07/03/24 07:57 Pulse Ox 98 07/03/24 07:57 Oxygen Delivery Method Room Air 07/03/24 07:57 BMI result Body Mass Index 30.9 Vital signs reviewed Physical Examination CONSTITUITIONAL Patient alert and cooperative. Well appearing and in no apparent painful distress HEENT Conjunctiva and sclera clear. ?Pupils equal round and reactive to light. ?No lymphadenopathy. ? CHEST/RESPIRATORY SYSTEM Normal respiratory effort and able to speak in complete sentences. ?Clear to auscultation bilaterally. ?No crackles, rales, rhonchi, wheezes heard. CARDIAC SYSTEM Regular rate and rhythm. ?S1 and S2 heard no murmurs. ?Radial pulses intact bilaterally MSK Hands: ?Good lap machine tender strength bilaterally. No deformities noted. ?No synovitis noted to the MCPs, PIPs or DIPs. ?No tenderness to palpation of these joints. Wrists: ?Full range of motion at the wrists without pain. ?No tenderness to palpation or synovitis noted to the wrists. Elbows: Full range of motion without pain. No tenderness, weakness, swelling, increased warmth or erythema. Shoulders: Full range of motion without pain. No tenderness, weakness, swelling, increased warmth or erythema. Hips: Full range of motion without pain. Hip bursa: No tenderness to palpation Knees: ?Full range of motion. ?No tenderness, swelling, increased warmth or erythema.? Bilateral crepitations felt Ankles: Full range of motion. ?No tenderness, swelling, increased warmth or erythema.? Feet: ?Negative squeeze test. ?No tenderness to palpation or swelling of the MTPs. Tender points:?No tenderness to palpation of the bilateral trapezius, supraspinatus, greater trochanters, anterior costochondral junctions, bilateral gluteal areas, bilateral suboccipital muscle insertions SKIN Skin intact without rashes. Results Reviewed Results Reviewed: Laboratory Tests 12/26/22 11/13/23 06/10/24 11:46 16:05 10:34 WBC 6.9 RBC 4.66 Hgb 15.0 Hct 42.5 Plt Count 234 ESR 2 Sodium 142 Potassium 4.8 Chloride 111 H Carbon Dioxide 25 BUN 16 Creatinine 0.95 Calcium 8.9 Total Bilirubin 0.3 AST 28 ALT 24 Alkaline Phosphatase 82 C-Reactive Protein 0.20 BRAYDON Screen POSITIVE A BRAYDON Titer 1:640 H BRAYDON Titer 2 1:320 H Hepatitis A IgM Ab Nonreactive Hep Bs Antigen Negative Hep Bs Antibody REACTIVE Hep B Core Total Ab Nonreactive Hepatitis C Ab (EIA) Nonreactive TB Test (T-Spot) Com Negative 06/11/24 09:13 WBC RBC Hgb Hct Plt Count ESR Sodium 142 Potassium 4.6 Chloride 113 H Carbon Dioxide 25 BUN 13 Creatinine 0.88 Calcium 8.8 Total Bilirubin AST ALT Alkaline Phosphatase C-Reactive Protein BRAYDON Screen BRAYDON Titer BRAYDON Titer 2 Hepatitis A IgM Ab Hep Bs Antigen Hep Bs Antibody Hep B Core Total Ab Hepatitis C Ab (EIA) TB Test (T-Spot) Com ECHO 05/2024 Findings Left Ventricle Normal left ventricular size, thickness, and systolic function. The visually estimated ejection fraction is between 55-60%. Spectral Doppler is indicative of a normal filling pattern. Right Ventricle Normal right ventricular cavity size and systolic function. Atria Both atria are normal in size. There is no evidence of interatrial shunt. Aortic Valve Normal aortic valve structure and function. There is no aortic valve stenosis. There is no aortic valve regurgitation. Mitral Valve Likely normal mitral valve structure and function. There is trace mitral valve regurgitation. There is no mitral valve stenosis. Pulmonic Valve The pulmonic valve was not well visualized. Tricuspid Valve Likely normal tricuspid valve structure and function. There is trace tricuspid valve regurgitation. The right ventricular systolic pressure is normal. The right ventricular systolic pressure is 18 mmHg. Normal right atrial pressure. There is no evidence of pulmonary hypertension. Venous The inferior vena cava is normal in size and collapses greater than 50% with inspiration. Pericardium/Pleural There is no evidence of pericardial effusion. Assessment & Plan Assessment & Plan (1) Pericarditis associated with systemic lupus erythematosus: Comment: Chest pain and pericardial fluid, August 2022. Recurrence March 2023, July 2023 Hydroxychloroquine minimal effective Colchicine minimally effective - stopped 04/2024 Azathioprine not tolerated kineret 11/2023 effective Code(s): I31.9 - Disease of pericardium, unspecified; M32.12 - Pericarditis in systemic lupus erythematosus Category: Medical Qualifiers: Chronicity: chronic Chronic pericarditis complication: unspecified complication status Qualified Code(s): M32.12 - Pericarditis in systemic lupus erythematosus Plan: #Idiopathic Pericarditis Patient is a 58-year-old female with recurrent pericarditis in the setting of a positive BRAYDON without any other signs or symptoms concerning for lupus. Her last admission to the hospital was in September 2023. Started on anakinra 11/2023 and since then has been stable. Doing well on the anakinra no intolerable side effects Plan - Anakinra 100mg SC daily - Plaquenil 200mg daily - RTC 3 months - Labs before visit: CBC, CMP, ESR, CRP, hepatitis panel and T spot (2) Long-term use of immunosuppressant medication: Code(s): Z79.60 - terminal worker (current) use of unspecified immunomodulators and immunosuppressants Category: Medical Plan: #[facility] current use of Anakinra (Kineret) Risks and benefits of anakinra in the management of patient's rheumatic disease is discussed Benefits include reduced flares and improved disease control Wrists include upset stomach, dry mouth, drowsiness, Wheeler Elan syndrome, hallucinations and increased risk of infections and malignancy Monitoring every 3 months with CBC, CMP, ESR, CRP. Every 6 months-1 year hepatitis panel and T spot Plan I spent 30 minutes reviewing the record and labs, taking a history, examining the patient, discussing the treatment plan and documenting in the medical record Orders: Orders Complete Blood Count Auto Diff 3 Months M32.12 - Pericarditis in systemic lupus erythematosus, Z79.60 - [facility] (current) use of unspecified immunomodulators and immunosuppressants Comprehensive Met. Panel 3 Months M32.12 - Pericarditis in systemic lupus erythematosus, Z79.60 - [facility] (current) use of unspecified immunomodulators and immunosuppressants Hepatitis A,B,C Profile 3 Months M32.12 - Pericarditis in systemic lupus erythematosus, Z79.60 - terminal worker (current) use of unspecified immunomodulators and immunosuppressants T Spot TB 3 Months M32.12 - Pericarditis in systemic lupus erythematosus, Z79.60 - [facility] (current) use of unspecified immunomodulators and immunosuppressants C Reactive Protein 3 Months M32.12 - Pericarditis in systemic lupus erythematosus, Z79.60 - [facility] (current) use of unspecified immunomodulators and immunosuppressants Erythrocyte Sedimentation Rate 3 Months M32.12 - Pericarditis in systemic lupus erythematosus, Z79.60 - terminal worker (current) use of unspecified immunomodulators and immunosuppressants Coding Level of Care Code Est Pt Level 4 (30510) Complex EM visit Add On G2211 Diagnoses Chronic pericarditis associated with systemic lupus erythematosus (SLE), unspecified complication status M32.12 Chronicity: chronic Chronic pericarditis complication: unspecified complication status Long-term use of immunosuppressant medication Z79.60
--- OUTSIDE RECORDS SUMMARY | 2024-07-03 07:53 | XMS_ITS | Encounter Summary ---
Author Organization [employer] Address [address] [place] [address] Care Team Providers Care Surgical Orderly Name Role Phone Regina Paz MD Primary Care Provider [phone] Encounter Details Date Type Department Care Team (Late st Contact Info) Description 05/29/2024 Orders Only [facility] MEDICAL [address] [place] [address] ProviderReina MD Social History Tobacco Use Types Packs/Day Years Used Date Smoking Tobacco: Former Cigarettes Smokeless Tobacco: Never Alcohol Use Standard Drinks/Week Comments Never 0 (1 standard drink = 0.6 oz pur e alcohol) Depression Answer Date Recorded Patient Health Questionnaire-9 Score 12 06/15/2023 Patient Health Questionnaire-9 Score 12 06/15/2023 Last PHQ-9: Questionnaire Data Not on file 0 06/15/2023 Housing Stability Answer Date Recorded What is your housing situation today? I have rinku plascencia 05/17/[address] you li ve. Do you have problems with any of the following? None of the above 05/17/2023 Food Insecurity Answer Date Recorded Within the past 12 months, y ou worried that your food would run out before you got money to buy more: Never True 05/17/2023 Within the past 12 months,th e food you bought just didn't last and you didn't have enough money to get more: Never True Transportation Answer Date Recorded In the past 12 months, has l ack of transportation kept you from medical appts, meetings, work or from getting things needed for daily living? No 05/17/2023 Utilities Answer Date Recorded In the past 12 months, has t he electric, gas, oil or water company threatened to shut off services in your home? No 05/17/2023 Depression Answer Date Recorded Patient Health Questionnaire-2 Score 3 06/15/2023 Comments Unknown Sex and Gender Information Value Date Recorded Sex Assigned at Female 05/16/2023 3:07 PM EST Legal Sex Female 5:37 PM EDT Gender Identity Female 05/16/2023 3:07 PM EST Sexual Orientation Straight 07/02/2023 11 :50 AM EST Occupation Industry Job Start Date Job End Date [employer] Not on file Not on file Not on file documented as of this encounter Plan of Treatment Upcoming Encounters Date Type Department Care Team (Late st Contact Info) Description 07/17/2024 10:30 AM EST Office Visit [facility] MEDICAL [address] [place] [address] Regina Paz MD [address] [place] [address] 12/11/2024 8:30 AM EDT Office Visit [facility] DENTAL [address] [place] [address] Darron Cedeño 01/12/2025 8:30 AM EDT Office Visit [facility] OPTOMETRY [address] [place] [address] Tessa Randall OD [address] [place] [address] documented as of this encounter Procedures Procedure Name Priority Date/Time Associated Diagnosis Comments ALPHA SUBUNIT, FREE Routine 05/06/2024 5:38 PM EST documented in this encounter Results * ALPHA SUBUNIT, FREE (05/06/2024 5:38 PM EST) us Historical Provider LAB BLOOD ORDERABLES Laly l Result documented in this encounter Visit Diagnoses Not on filedocumented in this encounter Additional Health Concerns Assessment Noted Time PHQ-9 Depression Total Score: 12 024 9:05 AM EST documented as of this encounter Care Teams Surgical Orderly Relationship Specialty Start Date End Date Regina Paz MD [address] [place] [address] PCP - General Internal Medicine 06/09/22 documented as of this encounter
--- OUTSIDE RECORDS SUMMARY | 2024-07-03 07:53 | XMS_ITS | Encounter Summary ---
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[employer] Not on file Not on file Not on file documented as of this encounter Plan of Treatment Upcoming Encounters Date Type Department Care Team (Late st Contact Info) Description 07/17/2024 10:30 AM EST Office Visit [facility] MEDICAL [address] [place] [address] Regina Paz MD [address] [place] [address] 12/11/2024 8:30 AM EDT Office Visit [facility] DENTAL [address] [place] [address] Darron Cedeño 01/12/2025 8:30 AM EDT Office Visit [facility] OPTOMETRY [address] [place] [address] Tessa Randall OD [address] [place] [address] documented as of this encounter Procedures Procedure Name Priority Date/Time Associated Diagnosis Comments CORTISOL RANDOM Routine 04/17/2024 1:45 PM EST HIGH SENSITIVITY TROPONIN I Routine 04/17/2024 1:45 PM EST documented in this encounter Results * High Sensitivity Troponin I (04/17/2024 1:45 PM EST) Blood Venous blood specimen / Unknown us Historical Provider LAB BLOOD ORDERABLES Laly l Result * Cortisol Random (04/17/2024 1:45 PM EST) us Historical Provider LAB BLOOD ORDERABLES Laly l Result documented in this encounter Visit Diagnoses Not on filedocumented in this encounter Additional Health Concerns Assessment Noted Time PHQ-9 Depression Total Score: 12 024 9:05 AM EST documented as of this encounter Care Teams Clinical Molecular Geneticist Relationship Specialty Start Date End Date Regina Paz MD [address] [place] [id number] PCP - General Internal Medicine 06/09/22 documented as of this encounter
--- OUTSIDE RECORDS SUMMARY | 2024-07-03 07:53 | XMS_ITS | Encounter Summary ---
Author Organization [employer] Address [address] [place] [address] [address] [address] Care Team Providers Care High Speed Operator Name Role Phone Regina Paz MD Primary Care Provider [phone] Encounter Details Date Type Department Care Team (Latest Contact Info) Description 08/26/2021 Abstract [facility]VERSION[facility] Dental, Provider, DDS Social History Tobacco Use Types Packs/Day Years Used Date Smoking Tobacco: Never Assessed Comments Unknown Sex and Gender Information Value Date Recorded Sex Assigned at Female 05/16/2023 3:07 PM EST Legal Sex Female 5:37 PM EDT Gender Identity Female 05/16/2023 3:07 PM EST Sexual Orientation Straight 07/02/2023 11 :50 AM EST documented as of this encounter Plan of Treatment Upcoming Encounters Date Type Department Care Team (Late st Contact Info) Description 07/17/2024 10:30 AM EST Office Visit [facility] MEDICAL [address] [place] [address] Regina Paz MD [address] [place] [address] 12/11/2024 8:30 AM EDT Office Visit [facility] DENTAL [address] [place] [address] Darron Cedeño 01/12/2025 8:30 AM EDT Office Visit [facility] OPTOMETRY [address] [place] [address] Tessa Radnall OD [address] [place] [address] documented as of this encounter Visit Diagnoses Not on filedocumented in this encounter Care Teams High Speed Operator Relationship Specialty Start Date End Date Regina Paz MD [address] [place] [address] PCP - General Internal Medicine 06/09/22 documented as of this encounter
--- OUTSIDE RECORDS SUMMARY | 2024-07-03 07:53 | XMS_ITS | Encounter Summary ---
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 MEDICAL [address] [place] [address] Regina Paz MD [address] [place] [address] 12/11/2024 8:30 AM EDT Office Visit [facility] DENTAL [address] [place] [address] Darron Cedeño 01/12/2025 8:30 AM EDT Office Visit [facility] OPTOMETRY [address] [place] [address] Tessa Randall OD [address] [place] [address] documented as of this encounter Procedures Procedure Name Priority Date/Time Associated Diagnosis Comments B TYPE NATRIURETIC PEPTIDE (BNP) Routine 06/11/2024 7:56 AM EST BASIC METABOLIC PANEL Routine 06/11/2024 7:56 AM EST DHEA SULFATE Routine 06/10/2024 7:58 AM EST CORTISOL RANDOM Routine 06/10/2024 7:55 AM EST CBC WITH AUTO DIFFERENTIAL Routine 06/10/2024 7:55 AM EST SED RATE BY MODIFIED WESTERGREN Routine 06/10/2024 7:55 AM EST C-REACTIVE PROTEIN Routine 06/10/2024 7: 55 AM EST LIPID PANEL, STANDARD Routine 06/10/2024 7:55 AM EST COMPREHENSIVE METABOLIC PANEL Routine 06/10/2024 7:55 AM EST documented in this encounter Results * Basic Metabolic Panel (06/11/2024 7:56 AM EST) Blood Venous blood specimen / Unknown Result [facility] MD LAB BLOOD ORDERABLES Laly l Result * B Type Natriuretic Peptide (BNP) (06/11/2024 7:56 AM EST) Blood Venous blood specimen / Unknown Result [facility] MD LAB BLOOD ORDERABLES Laly l Result * DHEA Sulfate (06/10/2024 7:58 AM EST) Blood Venous blood specimen / Unknown Result [facility] MD LAB BLOOD ORDERABLES Laly l Result * Comprehensive Metabolic Panel (06/10/2024 7:55 AM EST) Blood Venous blood specimen / Unknown Result [facility] MD LAB BLOOD ORDERABLES Laly l Result * C-reactive Protein (06/10/2024 7:55 AM EST) Blood Venous blood specimen / Unknown Result [facility] MD LAB BLOOD ORDERABLES Laly l Result * Lipid Panel, Standard (06/10/2024 7:55 AM EST) Blood Venous blood specimen / Unknown Result [facility] MD LAB BLOOD ORDERABLES Laly l Result * Cortisol Random (06/10/2024 7:55 AM EST) Result [facility] MD LAB BLOOD ORDERABLES Laly l Result * CBC auto differential (06/10/2024 7:55 AM EST) Blood Venous blood specimen / Unknown us Historical Provider LAB BLOOD ORDERABLES Laly l Result * Sed Rate by Modified Philip (06/10/2024 7:55 AM EST) Blood Venous blood specimen / Unknown Historical Provider LAB BLOOD ORDERABLES Laly l Result documented in this encounter Visit Diagnoses Not on filedocumented in this encounter Additional Health Concerns Assessment Noted Time PHQ-9 Depression Total Score: 12 024 9:05 AM EST documented as of this encounter Care Teams Front Maker Relationship Specialty Start Date End Date Regina Paz MD [address] [place] [id number] PCP - General Internal Medicine 06/09/22 documented as of this encounter
--- OUTSIDE RECORDS SUMMARY | 2024-07-03 07:53 | XMS_ITS | Clinical Summary ---
Author Organization [employer] Address [address] [place] [address] 7[address] [place] [address] Care Team Providers Care Small Equipment Operator Name Role Phone Regina Paz MD Primary Care Provider [phone] Allergies Active Allergy Reactions Criticality Noted Date Comments Atorvastatin Unknown High 06/01/2022 Erythromycin Unknown High 06/01/2022 Green Dyes Headache High 06/01/2022 Other reaction(s): headache Azathioprine Other High 05/17/2023 Iodinated Contrast Media Rash Medium 03/22/2021 Molds & Smuts Headache Medium 06/01/2022 Pollen Extract Runny nose Medium 06/01/2022 Red Dye #40 (Allura Red) High 06/01/2022 Flavoring Agent (Non-Screening) Headache High 06/09/2022 Abdominal migraine Medications melatonin 5 MG tablet PRN Active butalbital-zunilda taminophen-caf feine (Esgic) 50-325-40 MG capsuleIndicat ions:Abdominal migraine, not intractable TAKE 1 CAPSULE BY MOUTH EVERY 4 HOURS NEEDED 180 capsule 07/06/19 23 Active docusate sodium (Colace) 100 MG capsule Take 100 mg by mouth 2 times daily. Active sennosides 25 MG tablet Take 1 tablet by mouth in the morning. OTC Active triamcinolone (Nasacort) 55 MCG/ACT nasal inhaler Nasal Allergy 16.5 g 1 02/13/20 23 Active dicyclomine (Bentyl) 20 MG tablet 06/30/19 23 Active rosuvastatin (Crestor) 10 MG tablet Take 1 tablet (10 mg) by mouth in the morning. 90 tablet 3 07/24/19 24 Active hydroxychloroq uine (Plaquenil) 200 MG tablet TAKE 1 & 1/2 (ONE & ONE-HALF) TABLETS BY MOUTH ONCE DAILY 11/13/19 24 Active ondansetron (Zofran) 8 MG tabletIndicati ons:Migraine without aura and without status migrainosus, not intractable Take 1 tablet (8 mg) by mouth every 8 (eight) hours if needed for nausea or vomiting. 90 tablet 2 11/20/19 24 Active metoclopramide (Reglan) 10 MG tablet Take 1 tablet (10 mg) by mouth 3 times daily. Per GI 180 tablet 3 11/20/19 24 025 Active anakinra (Kineret) 100 MG/0.67ML injectionIndic ations:Autoimm une disorder (CMS/HCC) Inject 0.67 mL (100 mg) under the skin Once per day. 20.1 mL 11 12/27/19 24 025 Active colchicine 0.6 MG tablet Take 1 tablet (0.6 mg) by mouth 3 times daily. PRN 90 tablet 01/02/20 24 Active metoprolol succinate XL (Toprol-XL) 100 MG 24 hr tablet Take 100 mg by mouth Once per day. Do not crush or chew. Active verapamil SR (Calan SR) 120 MG ER tablet Take 120 mg by mouth at bedtime. Do not crush or chew. Active Restasis 0.05 % ophthalmic emulsionIndica tions:Keratiti s sicca, bilateral Administer 1 drop into both eyes every 12 (twelve) hours. 180 each 3 01/24/20 24 025 Active acyclovir (Zovirax) 400 MG tablet 1 tab p.o. BID PRN herpes lesions, X 7 days per episode 60 tablet 02/07/20 24 Active omeprazole (PriLOSEC) [address] capsule Take 40 mg by mouth Once per day. 01/19/20 24 Active cyclobenzaprin e (Flexeril) 10 MG tabletIndicati ons:Migraine without aura and without status migrainosus, not intractable Take 1 tablet (10 mg) by mouth 2 times daily. 180 tablet 1 02/08/20 24 Active SUMAtriptan (Imitrex) 20 MG/ACT nasal sprayIndicatio ns:Migraine without aura and without status migrainosus, not intractable USE 1 SPRAY(S) ONCE DAILY INTO NOSTRIL(S) NEEDED FOR HEADACHE 6 each 06/18/19 25 Active SUMAtriptan (Imitrex) 20 MG/ACT nasal sprayIndicatio ns:Migraine without aura and without status migrainosus, not intractable USE 1 SPRAY IN NOSTRIL(S) ONCE DAILY NEEDED FOR HEADACHE 6 each 06/17/19 25 Active LORazepam (Ativan) 1 MG tabletIndicati ons:Primary insomnia Take 1 tablet (1 mg) by mouth if needed each day for anxiety for up to 21 days. PRN 21 tablet 06/19/19 25 025 Active ibuprofen 800 MG tablet 3 times a day. 025 Discontinued naproxen (Naprosyn) 250 MG tablet Take 375 mg by mouth with breakfast and with evening meal. 025 Discontinued(Me d list cleanup (will not trigger notification to Pharmacy)) naltrexone (Depade) 50 MG tabletIndicati ons:BMI 29.0-29.9,adul t Take 1 tablet (50 mg) by mouth Once per day. 90 tablet 3 02/08/20 24 025 Discontinued LORazepam (Ativan) 0.5 MG tabletIndicati ons:Primary insomnia Take 1 tablet (0.5 mg) by mouth if needed in the morning and at bedtime for anxiety for up to 21 days. PRN 14 tablet 2 04/08/20 24 025 Discontinued(Re order (will not trigger notification to Pharmacy)) SUMAtriptan (Imitrex) 20 MG/ACT nasal sprayIndicatio ns:Migraine without aura and without status migrainosus, not intractable USE 1 SPRAY IN NOSTRIL(S) ONCE DAILY NEEDED FOR HEADACHE 6 each 05/22/20 24 025 Discontinued(Re order (will not trigger notification to Pharmacy)) Active Problems Problem Noted Date Diagnosed Date Abdominal migraine, not intractable 06/01/2022 Abnormal magnetic resonance imaging of soft tiss ue of neck 06/01/2022 Anxiety 06/01/2022 Cervical radiculopathy 06/01/2022 History of cholecystectomy 06/01/2022 Hoarseness 06/01/2022 Hyperlipidemia 06/01/2022 Insomnia 06/01/2022 Leukocytosis 06/01/2022 Migraine without aura and wi thout status migrainosus, not intractable 06/01/2022 Thyroglossal duct cyst 06/01/2022 Thyroid nodule 06/01/2022 Vasculitis 06/01/2022 Encounters Date Type Department Care Team Description 06/30/[address] [id number] Regina Paz MD appointment needed 06/27/2024 2:00 PM EST Office Visit [address] [address] Regina Paz MD Long-term use of high-risk medication (Primary Dx) 06/27/2024 Travel 06/22/2024 Orders Only [address] [address] Reina Martinez MD 06/17/[address] [address] Regina Paz MD Migraine without aura and without status migrainosus, not intractable 06/16/[address] [address] Vielka Blevins DO Migraine without aura and without status migrainosus, not intractable 06/15/2024 Orders Only [address] [address] Reina Martinez MD 06/12/2024 Orders Only [facility] [address] [place] [phone] Regina Paz MD 06/06/2024 9:20 AM EST Office [place] [facility] [facility] [address] [place] [id number] Julissa Macedo LLD Stage 2 grade B generalized periodontitis per AAP/EFP 2017 classification (Primary Dx); Encounter for dental examination 05/29/2024 Orders Only [address] [address] Reina Martinez MD 05/22/[address] [address] Regina Paz MD Migraine without aura and without status migrainosus, not intractable 05/19/2024 Orders Only [facility] [address] [place] [address] ProviderReina MD 05/16/2024 Orders Only [facility] [address] [place] [address] ProviderReina MD 05/12/2024 10:00 AM EST Telemedicine [facility] [address] [place] [address] Regina Paz MD Left hip pain (Primary Dx) 05/07/2024 Orders Only [facility] [address] [place] [address] Regina Paz MD 04/23/2024 Orders Only [facility] [address] [place] [address] ProviderReina MD 04/22/2024 Refill [facility] [address] [place] [address] Regina Paz MD Migraine without aura and without status migrainosus, not intractable 04/08/2024 11:30 AM EST Office Visit [facility] [address] [place] [address] Regina Paz MD Other secondary hypertension (Primary Dx); Primary insomnia; Autoimmune disorder (CMS/HCC); Immunization due 04/08/2024 Travel from Last 3 Months Immunizations Name Administration Dates Next Due Hep B, Adolescent or Pediatric 01/15/1993,1991,07/20/1991 INFLUENZA VACCINE QUADRIVALE NT RECOMBINANT PRESERVATIVE FREE RIV4 03/03/2022,02/25/2021,03/21/2020 Influenza Injectable Quadriv alant Preservative Free IIV4 MDCK 03/16/2023 Influenza injectable quadriv alent preservative free 03/05/2019,03/08/2018 Influenza, IIV3, injectable 02/08/2024,0 02/23/2016,03/04/2015,2013,02/11/2013,02/06/2012,02/14/2011,0 02/17/2009 MMR 12/12/1991,10/14/1991 Moderna Covid-19 Vaccine 12+ 05/17/2023 PPD Test 07/06/2011, 1,2007,1992 Pneumococcal Conjugate PCV 20 04/08/2024 TD (adult), 2 Lf tetanus tox oid, preservative free, adsorbed 09/08/2021,11/15/2010 Tdap 04/16/2018,10/27/2005 Family History Medical History Relation Name Comments Heart failure Father Glaucoma Maternal Grandmother Cataracts Mother Uterine cancer Mother Cataracts Paternal Grandfather Cataracts Paternal Grandmother Macular degeneration Paternal Grandmother Relation Name Status Comments Father Maternal Grandmother Mother Alive Paternal Grandfather Paternal Grandmother Social History Tobacco Use Types Packs/Day Years Used Date Smoking Tobacco: Former Cigarettes Smokeless Tobacco: Never Tobacco Cessation:Counseling Given: Not Answered Alcohol Use Standard Drinks/Week Comments Never 0 (1 standard drink = 0.6 oz pur e alcohol) Alcohol Answer Date Recorded How often do you have a drink containing alcohol ? 1 06/27/2024 How many drinks containing a lcohol do you have on a typical day when you are drinking? 0 06/27/2024 How often do you have six or more drinks on one occasion? 0 06/27/2024 Depression Answer Date Recorded Patient Health Questionnaire-9 Score 12 06/15/2023 Patient Health Questionnaire-9 Score 12 06/15/2023 Last PHQ-9: Questionnaire Data Not on file 0 06/15/2023 Housing Stability Answer Date Recorded What is your housing situation today? I have rinku plascencia 06/27/[address] you li ve. Do you have problems with any of the following? None of the above 06/27/2024 Food Insecurity Answer Date Recorded Within the past 12 months, y ou worried that your food would run out before you got money to buy more: Never True 06/27/2024 Within the past 12 months,th e food you bought just didn't last and you didn't have enough money to get more: Never True Transportation Answer Date Recorded In the past 12 months, has l ack of transportation kept you from medical appts, meetings, work or from getting things needed for daily living? No 06/27/2024 Utilities Answer Date Recorded In the past 12 months, has t he electric, gas, oil or water company threatened to shut off services in your home? No 06/27/2024 Depression Answer Date Recorded Patient Health Questionnaire-2 Score 0 06/27/2024 Internet Access Answer Date Recorded Internet Access Q1 Yes 06/27/2024 Internet Access Q2 Not on file 06/27/2024 Comments Unknown Sex and Gender Information Value Date Recorded Sex Assigned at Female 05/16/2023 3:07 PM EST Legal Sex Female 5:37 PM EDT Gender Identity Female 05/16/2023 3:07 PM EST Sexual Orientation Straight 07/02/2023 11 :50 AM EST Occupation Industry Job Start Date Job End Date [employer] Not on file Not on file Not on file Last Filed Vital Signs Vital Sign Reading Time Taken Comments Blood Pressure 125/86 06/27/2024 2:07 PM EST Pulse 77 06/27/2024 2:07 PM EST Temperature 36.6 ??C (97.8 ??F) 06/27/2024 2 :07 PM EST Respiratory Rate 16 04/08/2024 11:4 2 AM EST Oxygen Saturation 98% 04/08/2024 11: 42 AM EST Inhaled Oxygen Concentration - - Weight 76.7 kg (169 lb) 06/27/2024 2:07 PM EST Pt weigh at home this morning and declined to be weighed here. Height 160 cm (5' 3 ) 06/27/2024 2:07 PM EST Body Mass Index 29.94 06/27/2024 2:07 PM EST Plan of Treatment Upcoming Encounters Date Type Department Care Team (Late st Contact Info) Description 07/17/2024 10:30 AM EST Office Visit [facility] [place] [facility] [address] [place] [address] Regina Paz MD [address] [place] [address] 12/11/2024 8:30 AM EDT Office Visit [facility] [facility] [address] [place] [address] Darron Cedeño 01/12/2025 8:30 AM EDT Office Visit [facility] [facility] [address] [place] [address] Tessa Randall, OD [address] [place] [address] Health Maintenance Due Date Last Done Comments CT Colonography 1963 Colonoscopy 1963 Colorectal Cancer Screening 1963 FIT DNA/Cologuard 1963 FIT 1963 FOBT 1963 HIV Screening 1963 Sigmoidoscopy 1963 Hepatitis C Screening 09/14/1981 HPV/Cotest 09/14/1993 Zoster Vaccines (1 of 2) 09/14/2013 Cervical Cancer Screening 07/16/2023 Pap Smear 07/16/2023 07/16/2020 COVID-19 Vaccine ( season) 2024 05/17/2023, 03/03/2022, 02/25/2021, Additional history exists Dental Oral Exam 12/05/2024 06/06/2024, , 09/08/2022, Additional history exists Dental Prophylaxis 12/05/2024 06/06/2024, 0 12/04/2023, 05/22/2023, Additional history exists Depression Monitoring (PHQ-9) 12/25/2024 06/27/2024, 06/15/2023 Dental X-Ray: Full Mouth 06/02/2025 06/01/2022, 0312/2015 Tobacco Screening 06/06/2025 06/06/2024 Dental X-Ray: Bitewings 06/07/2025 06/06/19, 05/22/2023, 06/01/2022, Additional history exists Alcohol/Substance Use Screening 06/27/2025 06/27/2024 Depression Screening 06/27/2025 06/27/2024, 06/15/19 24 SDOH Screening 06/27/2025 06/27/2024 Mammogram 02/28/2026 02/29/2024, 08/26, 09/08/2021, Additional history exists Lipid Panel 06/10/2029 06/10/2024, 07/26, 04/23/2023, Additional history exists DTaP/Tdap/Td Vaccines (5 - Td or Tdap) 09/09/2031 09/08/2021, 04/16/2018, 11/15/2010, Additional history exists RSV Patients and Patients Aged 60 years or older (1 - 1-dose 75+ series) 09/14/2038 Hepatitis B Vaccines Aged Out 01/15/1993, 12/20/1991, 07/20/1991 No longer eligible based on patient's age to complete this topic Influenza Vaccine Completed 02/08/2024, , 03/03/2022, Additional history exists Pneumococcal Vaccine: 50+ Years Completed 04/08/2024 HIB Vaccines Aged Out No longer eligi ble based on patient's age to complete this topic HPV Vaccines Aged Out No longer eligi ble based on patient's age to complete this topic Hepatitis A Vaccines Aged Out No long er eligible based on patient's age to complete this topic IPV Vaccines Aged Out No longer eligi ble based on patient's age to complete this topic Meningococcal Vaccine Aged Out No ashley amelia eligible based on patient's age to complete this topic RSV under 20 months Aged Out No longe r eligible based on patient's age to complete this topic Rotavirus Vaccines Aged Out No longer eligible based on patient's age to complete this topic Procedures Procedure Name Priority Date/Time Associated Diagnosis Comments CANNABINOIDS, MS, UR RFX (NON ORDERABLE) Routine 06/27/2024 2:22 PM EST TOXASSURE?? FLEX 15, URINE Routine 06/27/2024 2:22 PM EST Long-term use of high-risk medication ALLERGEN DRUG: ACTH (ADRENOCORTICOTROPHIC HORMONE) IGE Routine 06/11/2024 1:27 PM EST BASIC METABOLIC PANEL Routine 06/11/2024 7:56 AM EST B TYPE NATRIURETIC PEPTIDE (BNP) Routine 06/11/2024 7:56 AM EST AMB REFERRAL TO CARDIOLOGY Urgent 06/11/2024 Pericardial effusion Autoimmune disorder (CMS/HCC) DHEA SULFATE Routine 06/10/2024 7:58 AM EST COMPREHENSIVE METABOLIC PANEL Routine 06/10/2024 7:55 AM EST C-REACTIVE PROTEIN Routine 06/10/2024 7: 55 AM EST LIPID PANEL, STANDARD Routine 06/10/2024 7:55 AM EST CORTISOL RANDOM Routine 06/10/2024 7:55 AM EST CBC WITH AUTO DIFFERENTIAL Routine 06/10/2024 7:55 AM EST SED RATE BY MODIFIED WESTERGREN Routine 06/10/2024 7:55 AM EST ORAL HYGIENE INSTRUCTIONS Routine 06/06/2024 9:20 AM EST BITEWINGS - 4 RADIOGRAPHIC IMAGES Routine 06/06/2024 9:20 AM EST Full PROPHYLAXIS - ADULT Routine 06/06/2024 9:20 AM EST PERIODIC ORAL EVALUATION - ESTABLISHED PATIENT Routine 06/06/2024 9:20 AM EST XR HIP 2 OR 3 VIEWS LEFT Routine 05/14/2024 Left hip pain OTHER REF TEST - MISC Routine 05/12/2024 7:26 AM EST ALPHA SUBUNIT, FREE Routine 05/06/2024 5 :38 PM EST ALDOSTERONE Routine 05/06/2024 1:47 PM EST BASIC METABOLIC PANEL Routine 05/06/2024 12:06 PM EST OTHER REF TEST - MISC Routine 05/06/2024 7:32 AM EST FSH AND LH Routine 05/06/2024 7:27 AM EST PROLACTIN Routine 05/06/2024 7:27 AM EST OTHER REF TEST - MISC Routine 05/06/2024 7:27 AM EST DHEA SULFATE Routine 05/06/2024 7:27 AM EST HIGH SENSITIVITY TROPONIN I Routine 04/17/2024 1:45 PM EST CORTISOL RANDOM Routine 04/17/2024 1:45 PM EST XR CHEST 2 VIEWS Routine 04/17/2024 12:1 2 PM EST BI MAMMOGRAM SCREENING BILATERAL Routine 02/29/2024 3:34 PM EDT DIAGNOSTIC - DIAGNOSTIC IMAGING - INTRAORAL - COMPREHENSIVE SERIES OF RADIOGRAPHIC IMAGES Routine 06/01/2022 10:00 AM EST Encounter for dental examination HM PAP/HPV Routine 07/16/2020 from Last 3 Months or Most Recently Relevant to Health Maintenance Results * Cannabinoids, MS, Ur RFX (06/27/2024 2:22 PM EST) CANNABINOIDS, Urine +POSITIVE + [facility] Carboxy-THC, Urine 1,584 ng/mg creat [facility] Comment: This test is not intended to distinguish between the metabolites of hmdhm-2-szropvuewwopcfpbpbqk, the predominant form of THC in most herbal or marijuana-based products, and jvihl-6-upfyxibtfeteepzawxus, a psychoactive compound generally synthesized from other cannabinoids. 06/27/2024 2:22 PM EST 06/27/2024 Comment:URINE Narrative [facility] 1 - 07/01/2024 12:05 AM EST Performed at: ??01 - [facility] [address] [place] [address] ??[phone] Casting Director: [facility], Phone: ??[phone] us Regina Paz MD HISTORICAL/NON ORDERABLE LABS Fi nal Result [facility] * [facility]?? Flex 15, Urine (06/27/2024 2:22 PM EST) Summary Report FINAL [facility] 1 Comment: Cannabinoids, MS, Ur RFX [facility] Flex 15, Ur Test ? Result ? Flag ? Units Drug Present ??Lorazepam ?369 ? ng/mg creat ?? Source of lorazepam is a scheduled prescription medication. ??Carboxy-THC ?1584 ?ng/mg creat ?? Carboxy-THC is a metabolite of tetrahydrocannabinol (THC). Source ?? of THC is most commonly herbal marijuana or marijuana-based ?? products, but THC is also present in a scheduled prescription ?? medication. Trace amounts of THC can be present in hemp and ?? cannabidiol (CBD) products. This test is not intended to ?? distinguish between fdzzj-5-vzjmgifattimphpprlze, the predominant ?? form of THC in most herbal or marijuana-based products, and ?? yrehk-1-hwavfsyknzbxbvgewkta. Test ?Result ?Flag ?? Units ?Ref Range ??Creatinine ?45 ? mg/dL ?>=20 Declared Medications: Medication list was not provided. For clinical consultation, please call . Creatinine, Urine 45 mg/dL [facility] Comment:REFERENCE RANGE: Ref Range>=20 Amphetamines IA, Urine Negative CUTOFF:3 00 ng/mL [facility] 1 Benzodiazepines, Urine +POSITIVE+ [facility] Diazepam, Urine Not Detected ng/mg creat [facility] 1 Desmethyldiazepam, Urine Not Detected ng/mg creat [facility] 1 Oxazepam, Urine Not Detected ng/mg creat [facility] 1 Temazepam, Urine Not Detected ng/mg creat [facility] 1 Comment: Expected metabolism of benzodiazepine class drugs: Parent Drug ? Detected Metabolites ? Diazepam: ? Desmethyldiazepam, Temazepam, Oxazepam Chlordiazepoxide: Desmethyldiazepam, Oxazepam Clorazepate: ?Desmethyldiazepam, Oxazepam Halazepam: ?Desmethyldiazepam, Oxazepam Temazepam: ?Oxazepam Oxazepam: ? None Alprazolam, Urine Not Detected ng/mg creat [facility] 1 Alpha-hydroxyalprazolam , Urine Not Detected ng/mg creat [facility] 1 Desalkylflurazepam, Urine Not Detected ng/mg creat [facility] 1 Lorazepam, Urine 369 ng/mg creat [facility] 1 Alpha-hydroxytriazolam, Urine Not Detected ng/mg creat [facility] 1 Clonazepam, Urine Not Detected ng/mg creat [facility] 1 7-aminoclonazepam, Urine Not Detected ng/mg creat [facility] 1 Midazolam, Urine Not Detected ng/mg creat [facility] 1 Alpha-hydroxymidazolam, Urine Not Detected ng/mg creat [facility] 1 Flunitrazepam, Urine Not Detected ng/mg creat [facility] 1 Desmethylflunitrazepam, Urine Not Detected ng/mg creat [facility] 1 Cocaine Metabolite IA, Urine Negative CUTOFF:1 50 ng/mL [facility] 1 ETHYL ALCOHOL Enzymatic, Urine Negative CUTOFF:0 .020 g/dL [facility] 1 CANNABINOIDS IA, Urine CUTOFF:2 0 ng/mL [facility] 1 Comment:Further testing sarah cated 6-Acetylmorphine IA, Urine Negative CUTOFF:1 0 ng/mL [facility] 1 OPIATE CLASS IA, Urine Negative CUTOFF:1 00 ng/mL [facility] 1 OXYCODONE CLASS IA, Urine Negative CUTOFF:1 00 ng/mL [facility] 1 Methadone IA, Urine Negative CUTOFF:1 00 ng/mL [facility] 1 METHADONE MTB IA, Urine Negative CUTOFF:1 00 ng/mL [facility] 1 BUPRENORPHINE, Urine Negative [facility] 1 Buprenorphine, Urine Not Detected ng/mg creat [facility] 1 Norbuprenorphine, Urine Not Detected ng/mg creat [facility] 1 FENTANYL & ANALOGUES, Urine Negative [facility] 1 Fentanyl, Urine Not Detected ng/mg creat [facility] 1 Norfentanyl, Urine Not Detected ng/mg creat [facility] 1 TAPENTADOL IA, Urine Negative CUTOFF:2 00 ng/mL [facility] 1 Tramadol IA, Urine Negative CUTOFF:2 00 ng/mL [facility] 1 Barbiturates IA, Urine Negative CUTOFF:2 00 ng/mL [facility] 1 Phencyclidine (PCP) IA, urine Negative CUTOFF:2 5 ng/mL [facility] 1 Urine (Urine, Random) 06/27/2024 2:22 PM EST 06/27/2024 Comment:URINE Narrative [facility] 1 - 07/01/2024 12:05 AM EST Performed at: ??01 - [facility] [employer] [address] [place] [address] ??[phone] Casting Director: [facility], Phone: ??[phone] us Regina Paz MD LAB URINE ORDERABLES Final Resul t [facility] * Acth IgE (06/11/2024 1:27 PM EST) Blood Venous blood specimen / Unknown us Historical Provider LAB BLOOD ORDERABLES Laly l Result * B Type Natriuretic Peptide (BNP) (06/11/2024 7:56 AM EST) Blood Venous blood specimen / Unknown Result [facility] Provider MD LAB BLOOD ORDERABLES Laly l Result * Basic Metabolic Panel (06/11/2024 7:56 AM EST) Only the most recent of2 resultswithin the time period is included. Blood Venous blood specimen / Unknown Result [facility] Provider MD LAB BLOOD ORDERABLES Laly l Result * Referral to Cardiology (06/11/2024) Result [facility] Regina Paz MD OUTPATIENT REFERRAL ORDERABLES F inal Result * DHEA Sulfate (06/10/2024 7:58 AM EST) Only the most recent of2 resultswithin the time period is included. Blood Venous blood specimen / Unknown Result [facility] MD LAB BLOOD ORDERABLES Laly l Result * Cortisol Random (06/10/2024 7:55 AM EST) Only the most recent of2 resultswithin the time period is included. Result [facility] Provider MD LAB BLOOD ORDERABLES Laly l Result * CBC auto differential (06/10/2024 7:55 AM EST) Blood Venous blood specimen / Unknown Result [facility] Provider MD LAB BLOOD ORDERABLES Laly l Result * Sed Rate by Modified [place]gren (06/10/2024 7:55 AM EST) Blood Venous blood specimen / Unknown Result [facility] Provider MD LAB BLOOD ORDERABLES Laly l Result * C-reactive Protein (06/10/2024 7:55 AM EST) Blood Venous blood specimen / Unknown Result [facility] Provider MD LAB BLOOD ORDERABLES Laly l Result * Lipid Panel, Standard (06/10/2024 7:55 AM EST) Blood Venous blood specimen / Unknown Result [facility] MD LAB BLOOD ORDERABLES Laly l Result * Comprehensive Metabolic Panel (06/10/2024 7:55 AM EST) Blood Venous blood specimen / Unknown Result [facility] MD LAB BLOOD ORDERABLES Laly l Result * XR Hip 2 or 3 Views Left (05/14/2024) Anatomical Region Laterality Modality Lower Extremities, Hip Left Radiograp hic Imaging Result [facility] Regina Paz MD IMG XR PROCEDURES Final Result * Other Reference Test - Misc (05/12/2024 7:26 AM EST) Only the most recent of3 resultswithin the time period is included. Result [facility] MD LAB BLOOD ORDERABLES Laly l Result * ALPHA SUBUNIT, FREE (05/06/2024 5:38 PM EST) Result [facility] Provider MD LAB BLOOD ORDERABLES Laly l Result * Aldosterone (05/06/2024 1:47 PM EST) Result [facility] Provider MD LAB BLOOD ORDERABLES Laly l Result * FSH And LH (05/06/2024 7:27 AM EST) Result [facility] MD LAB BLOOD ORDERABLES Laly l Result * Prolactin (05/06/2024 7:27 AM EST) Blood Venous blood specimen / Unknown Result [facility] MD LAB BLOOD ORDERABLES Laly l Result * High Sensitivity Troponin I (04/17/2024 1:45 PM EST) Blood Venous blood specimen / Unknown Result [facility] Historical Provider LAB BLOOD ORDERABLES Laly l Result * XR Chest 2 Views (04/17/2024 12:12 PM EST) Anatomical Region Laterality Modality Chest Radiographic Yaneli ging Result [facility] Regina Paz MD IMG XR PROCEDURES Final Result * BI Mammogram Screening Bilateral (02/29/2024 3:34 PM EDT) Anatomical Region Laterality Modality Breast Bilateral Mammography Result [facility] Regina Paz MD IMG BI PROCEDURES Final Result * Pap Smear (07/16/2020) Pap smear NEGATIVE Result [facility] Provider HEALTH MAINTENANCE Final Result from Last 3 Months or Most Recently Relevant to Health Maintenance Insurance , [address] [place] [address] [place] [address] Care Teams 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
--- OUTSIDE RECORDS SUMMARY | 2024-07-03 07:53 | XMS_ITS | Encounter Summary ---
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 on file Not on file documented as of this encounter Plan of Treatment Upcoming Encounters Date Type Department Care Team (Late st Contact Info) Description 07/17/2024 10:30 AM EST Office Visit [facility] MEDICAL [address] [place] [address] Regina Paz MD [address] [place] [address] 12/11/2024 8:30 AM EDT Office Visit [facility] DENTAL [address] [place] [address] Darron Cedeño 01/12/2025 8:30 AM EDT Office Visit [facility] OPTOMETRY [address] [place] [address] Tessa Randall, OD [address] [place] [address] documented as of this encounter Procedures Procedure Name Priority Date/Time Associated Diagnosis Comments CT ABDOMEN PELVIS WO CONTRAST Routine 08/11/2023 9:[address] CHEST WO CONTRAST Routine 08/11/2023 8:51 AM EDT documented in this encounter Results * CT Abdomen Pelvis w/o Contrast (08/11/2023 9:26 AM EDT) Anatomical Region Laterality Modality Body, Pelvis, Abdomen Computed T omography Regina Paz MD IM CT PROCEDURES Final Result * CT Chest w/o Contrast (08/11/2023 8:51 AM EDT) Anatomical Region Laterality Modality Body, Chest Computed Tomogra phy us Regina Paz MD IMG CT PROCEDURES Final Result documented in this encounter Visit Diagnoses Not on filedocumented in this encounter Additional Health Concerns Assessment Noted Time PHQ-9 Depression Total Score: 12 024 9:05 AM EST documented as of this encounter Care Teams Production Broacher Relationship Specialty Start Date End Date Regina Paz MD [address] [place] [address] PCP - General Internal Medicine 06/09/22 documented as of this encounter
--- OUTSIDE RECORDS SUMMARY | 2024-07-03 07:53 | XMS_ITS | Encounter Summary ---
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 file Not on file documented as of this encounter Plan of Treatment Upcoming Encounters Date Type Department Care Team (Late st Contact Info) Description 07/17/2024 10:30 AM EST Office Visit [facility] MEDICAL [address] [place] [address] Regina Paz MD [address] [place] [address] 12/11/2024 8:30 AM EDT Office Visit [facility] DENTAL [address] [place] [address] Darron Cedeño 01/12/2025 8:30 AM EDT Office Visit [facility] OPTOMETRY [address] [place] [address] Tessa Randall, JORGITO [address] [place] [address] documented as of this encounter Visit Diagnoses Not on filedocumented in this encounter Additional Health Concerns Assessment Noted Time PHQ-9 Depression Total Score: 12 024 9:05 AM EST documented as of this encounter Care Teams Epic Cadence Specialists Relationship Specialty Start Date End Date Regina Paz MD [address] [place] [address] PCP - General Internal Medicine 06/09/22 documented as of this encounter
--- OUTSIDE RECORDS SUMMARY | 2024-07-03 07:53 | XMS_ITS | Encounter Summary ---
Author Organization [employer] Address [address] [place] [address] 7 [place] [address] Care Team Providers Care B And B Gang Worker Name Role Phone Regina Paz MD Primary Care Provider [phone] Reason for Visit * Reason Comments Weight discussion Encounter Details Date Type Department Care Team (Late st Contact Info) Description 06/27/2024 2:00 PM EST Office Visit [facility] MEDICAL [address] [place] [address] Regina Paz MD [address] [place] [address] Long-term use of high-risk medication (Primary Dx) Social History Tobacco Use Types Packs/Day Years [...] 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 Height 160 cm (5' 3 ) 06/27/2024 2:07 PM EST Body Mass Index 29.94 06/27/2024 2:07 PM EST documented in this encounter Plan of Treatment Upcoming Encounters Date Type Department Care Team (Late st Contact Info) Description 07/17/2024 10:30 AM EST Office Visit [place] [facility] MEDICAL [address] [place] [address] Regina Paz MD [address] [place] [address] 12/11/2024 8:30 AM EDT Office Visit [facility] DENTAL [address] [place] [address] Darron Cedeño 01/12/2025 8:30 AM EDT Office Visit [facility] OPTOMETRY [address] [place] [address] Tessa Randall, OD [address] [place] [address] documented as of this encounter Procedures Procedure Name Priority Date/Time Associated Diagnosis Comments CANNABINOIDS, MS, UR RFX (NON ORDERABLE) Routine 06/27/2024 2:22 PM EST TOXASSURE?? FLEX 15, URINE Routine 06/27/2024 2:22 PM EST Long-term use of high-risk medication documented in this encounter Results * Cannabinoids, MS, Ur RFX (06/27/2024 2:22 PM EST) CANNABINOIDS, Urine +POSITIVE + [facility] 1 Carboxy-THC, Urine 1,584 ng/mg creat [facility] Comment: This test is not intended to distinguish between the metabolites of tjqls-0-lhsrhmlwogyddwqwwuxz, the predominant form of THC in most herbal or marijuana-based products, and xmoqx-7-kbxfyyeciwodtlpimzoi, a psychoactive compound generally synthesized from other cannabinoids. 06/27/2024 2:22 PM EST 06/27/2024 Comment:URINE Narrative [facility] 1 - 07/01/2024 12:05 AM EST Performed at: ??01 - [facility] [address] [place] [address] ??[id number] Rewinder: Belia [facility], Phone: ??[phone] us Regina Paz MD HISTORICAL/NON ORDERABLE LABS [...] is not intended to ?? distinguish between uulrs-9-imlosrujrkojrnzpjhuh, the predominant ?? form of THC in most herbal or marijuana-based products, and ?? wqbcc-8-kxmhjcyblywilmpbpeyk. Test ?Result ?Flag ?? Units ?Ref Range [...] CUTOFF:2 0 ng/mL [facility] 1 Comment:Further testing sraah cated 6-Acetylmorphine IA, Urine Negative CUTOFF:1 0 [...] 12:05 AM EST Performed at: ??01 - [facility] [facility] [address] [place] [address] ??[id number] Rewinder: Belia Grey [facility], Phone: ??[phone] us Regina Paz MD LAB URINE ORDERABLES Final Resul t [facility] 1 documented in this encounter Visit Diagnoses Diagnosis Long-term use of high-risk medication- Primary documented in this encounter Additional Health Concerns Assessment Noted Time PHQ-9 Depression Total Score: 12 024 9:05 AM EST documented as of this encounter Care Teams B And B Gang Worker Relationship Specialty Start Date End Date Regina Paz MD [address] [place] [address] PCP - General Internal Medicine 06/09/22 documented as of this encounter
--- OUTSIDE RECORDS SUMMARY | 2024-07-03 07:53 | XMS_ITS | Encounter Summary ---
Author Organization [employer] Address [address] [place] [address] [address], [place] [address] Care Team Providers Care Glass Furnace Operator Name Role Phone Regina Paz MD Primary Care Provider [phone] Encounter Details Date Type Department Care Team (Latest Contact Info) Description 09/11/2018 Abstract [facility] CONVERSIONS Dental, Provider, DDS Social [...] Description 07/17/2024 10:30 AM EST Office Visit [facility] MEDICAL [address] [place] [address] Regina Paz MD [address] [place] [address] 12/11/2024 8:30 AM EDT Office Visit [facility] DENTAL [address] [place] [address] Darron Cedeño 01/12/2025 8:30 AM EDT Office Visit [facility] OPTOMETRY [address] [place] [address] Tessa Randall OD [address] [place] [address] documented as of this encounter Visit Diagnoses Not on filedocumented in this encounter Care Teams Glass Furnace Operator Relationship Specialty Start Date End Date Regina Paz MD [address] [place] [address] PCP - General Internal Medicine 06/09/22 documented as of this encounter
--- OUTSIDE RECORDS SUMMARY | 2024-07-03 07:53 | XMS_ITS | Encounter Summary ---
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 file Not on file documented as of this encounter Plan of Treatment Upcoming Encounters Date Type Department Care Team (Late st Contact Info) Description 07/17/2024 10:30 AM EST Office Visit [facility] MEDICAL [address] [place] [address] Regina Paz MD [address] [place] [address] 12/11/2024 8:30 AM EDT Office Visit [facility] DENTAL [address] [place] [address] Darron Cedeño 01/12/2025 8:30 AM EDT Office Visit [facility] OPTOMETRY [address] [place] [address] Tessa Randall, OD [address] [place] [address] documented as of this encounter Procedures Procedure Name Priority Date/Time Associated Diagnosis Comments BASIC METABOLIC PANEL Routine 05/06/2024 12:06 PM EST documented in this encounter Results * Basic Metabolic Panel (05/06/2024 12:06 PM EST) Blood Venous blood specimen / Unknown us Regina Paz MD LAB BLOOD ORDERABLES Final Resul t documented in this encounter Visit Diagnoses Not on filedocumented in this encounter Additional Health Concerns Assessment Noted Time PHQ-9 Depression Total Score: 12 024 9:05 AM EST documented as of this encounter Care Teams Loft Worker Head Relationship Specialty Start Date End Date Regina Paz MD [address] [place] [address] PCP - General Internal Medicine 06/09/22 documented as of this encounter
--- OUTSIDE RECORDS SUMMARY | 2024-07-03 07:53 | XMS_ITS | Clinical Summary ---
Author Organization [facility] Address [address] [place] [address] Care Team Providers Care Senior Outside Sales Representative Name Role Phone Regina Paz Primary Care Provider [phone] Allergies Active Allergy Reactions Criticality Noted Date Comments Atorvastatin Unknown High 06/01/2022 Azathioprine Other (see comments) High 05/17/2023 Bee Pollen Rhinorrhea Medium 06/01/2022 Erythromycin Unknown High 06/01/2022 Flavoring Agent Headache High 06/09/2022 Abdominal migraine Iodinated Contrast Media Flushing Medium 03/22/2021 Pt denies Iodine Headache,Itching Medium 03/22/2021 Other reaction(s): Unknown Mold Headache Medium 06/01/2022 Medications acyclovir (ZOVIRAX) 400 mg tablet Take 400 mg by mouth 2 times daily. Active butalbital-aceta minophen-caff (ESGIC) 50-325-40 mg per capsule Take 1 capsule by mouth every 4 hours as needed. 3 Active cyclobenzaprine (FLEXERIL) 10 mg tablet Take 10 mg by mouth 3 times a day as needed for muscle spasms. 3 Active Restasis 0.05 % ophthalmic emulsion Instill 1 drop into both eyes every 12 hours. 2 Active dicyclomine (BENTYL) 20 mg tablet Take 20 mg by mouth 3 times a day. 3 Active docusate sodium (COLACE) 100 mg capsule Take 100 mg by mouth 2 times daily. Active LORazepam (ATIVAN) 0.5 mg tablet Take 0.5 mg by mouth 2 times daily as needed. 3 Active metoclopramide (REGLAN) 10 mg tablet Take 1 tablet by mouth 3 times daily. Active omeprazole (PriLOSEC) 40 mg capsule Take 40 mg by mouth as needed. Active ondansetron (ZOFRAN) 4 mg tablet Take 1 tablet by mouth daily as needed. 3 Active rosuvastatin (CRESTOR) 10 mg tablet Take 10 mg by mouth once a day. 3 Active triamcinolone (NASACORT) 55 mcg nasal inhaler Administer 1 spray into each nostril once a day. Active ZOLMitriptan (ZOMIG) 5 mg tablet Take 5 mg by mouth once as needed. 3 Active minoxidiL 5 % solution 2 % by Topical (top) route. Active senna (SENOKOT) 8.6 mg tablet Take 1 tablet by mouth once a day. Active colchicine (COLCRYS) 0.6 mg tabletIndication s:Pericarditis, unspecified chronicity, unspecified type Take 1 tablet (0.6 mg total) by mouth 2 times a day. 180 tablet 4 Active hydroxychloroqui ne (PLAQUENIL) 200 mg tabletIndication s:Positive BRAYDON (antinuclear antibody),Sicca, unspecified type (HCC),Pericardit is, unspecified chronicity, unspecified type Take 1 tablet (200 mg total) by mouth once a day. 90 tablet 4 Active Active Problems Problem Noted Date Diagnosed Date Pericardial effusion 08/14/2023 Abdominal migraine, not intractable 06/01/2022 Abnormal magnetic resonance imaging of soft tiss ue of neck 06/01/2022 Anxiety 06/01/2022 Cervical radiculopathy 06/01/2022 History of cholecystectomy 06/01/2022 Hyperlipidemia 06/01/2022 Insomnia 06/01/2022 Leukocytosis 06/01/2022 Migraine without aura and wi thout status migrainosus, not intractable 06/01/2022 Thyroglossal duct cyst 06/01/2022 Thyroid nodule 06/01/2022 Vasculitis (CMS/HCC) 06/01/2022 Resolved Problems Problem Noted Date Diagnosed Date Resolved Date Hoarseness 06/01/2022 08/21/2023 Immunizations Name Administration Dates Next Due Hepatitis B Vaccine, Pediatr ic or Pediatric/Adolescent Dosage 01/15/1993,12/20/1991,07/20/1991 Influenza, Injectable, Madin Chanda Canine Kidney, Preservative Free, Quadrivalent 03/16/2023 Influenza, Injectable, Quadr ivalent, Preservative Free 03/05/2019,03/08/2018 Influenza, Quadrivalent, Rec ombinant, Injectable, PF 03/03/2022,02/25/2021,03/21/2020 Influenza, Trivalent, MDV, Injectable ,03/04/2015,05/08/2014,2012,02/06/2012,02/14/2011,02/17/2009 Measles, Mumps, and Rubella Vaccine 12/12/1991,0 10/14/1991 Tetanus Toxoid, Reduced Diph theria Toxoid, and Acellular Pertussis Vaccine, Adsorbed 04/16/2018,10/27/2005 Tetanus and Diphtheria Toxoi ds, Adsorbed, Preservative Free (2 Lf of Tetanus Toxoid and 2 Lf of Diphtheria Toxoid) 09/08/2021,11/15/2010 Tuberculin Skin Test; Alliifi ed Protein Derivative Solution, Intradermal 07/06/2011,07/13/2010,2007,1992 Social History Tobacco Use Types Packs/Day Years Used Date Smoking Tobacco: Former Cigarettes Passive Smoke Exposure: Past Smokeless Tobacco: Never Tobacco Cessation:Counseling Given: No Alcohol Use Standard Drinks/Week Comments Never 0 (1 standard drink = 0.6 oz pur e alcohol) Comments Unknown Sex and Gender Information Value Date Recorded Sex Assigned at Female 12/21/2022 10:28 AM EDT Legal Sex Female 10:18 AM EDT Gender Identity Female 05/08/2023 9:17 AM EST Sexual Orientation Straight 05/08/2023 9: 17 AM EST Last Filed Vital Signs Vital Sign Reading Time Taken Comments Blood Pressure 133/90 08/21/2023 9:07 AM EDT Pulse 94 08/21/2023 9:07 AM EDT Temperature 36.6 ??C (97.8 ??F) 08/21/2023 9:07 AM ED T Respiratory Rate - - Oxygen Saturation - - Inhaled Oxygen Concentration - - Weight 70.8 kg (156 lb) 08/21/2023 9:07 AM EDT Height 160 cm (5' 3 ) 08/21/2023 9:07 AM EDT Body Mass Index 27.63 08/21/2023 9:07 AM EDT Plan of Treatment Health Maintenance Due Date Last Done Comments Cervical Cancer Screening 1963 Cologuard 1963 Colon Cancer Screening 1963 Colonoscopy 1963 FOBT / Fit Test 1963 HIV Screening 1963 HPV and Pap Smear 1963 Pap Smear 1963 Sigmoidoscopy 1963 Zoster Vaccines (1 of 2) 09/14/2013 Mammogram 09/13/2019 09/12/2017 COVID-19 Vaccine ( season) 2024 05/17/2023, 03/03/2022, 02/25/2021, Additional history exists Influenza Vaccine (#1) 2024 , 03/03/2022, 02/25/2021, Additional history exists Alcohol/Substance Use Screening 05/28/2024 Depression Screening and Follow-Up 05/28/2024 Social Drivers of Health Annual Screening 05/28/2024 CT Lung Cancer Screening (Baseline) 08/10/2024 08/11/2023 DTaP,Tdap,and Td Vaccines (5 - Td or Tdap) 09/09/2031 09/08/2021, 04/16/2018, 11/15/2010, Additional history exists RSV Vaccine (60+ years old and patients) (1 - 1-dose 75+ series) 09/14/2038 Hepatitis B Vaccines Aged Out 01/15/1993, 12/20/1991, 07/20/1991 No longer eligible based on patient's age to complete this topic Hepatitis C Screening Completed 05/15/2023 Pneumococcal Vaccine: Pediatric (0-5 Years) and At-Risk Patients (6-64 Years) Aged Out No longer eligible based on patient's age to complete this topic Procedures * Due to [place] state law, this organization might not be sharing negative HIV tests. Procedure Name Priority Date/Time Associated Diagnosis Comments HEPATITIS C ANTIBODY W/REFLEX TO HCV RNA, QUANTITATIVE PCR Routine 05/15/2023 10:55 AM EST Pericarditis, unspecified chronicity, unspecified type from Last 3 Months or Most Recently Relevant to Health Maintenance Results * Due to [place] state law, this organization might not be sharing negative HIV tests. * Hepatitis C Antibody w/Reflex to HCV RNA, Quantitative PCR (05/15/2023 10:55 AM EST) Hepatitis C Antibody NON-REACT LIOR NON-REACT LIOR 05/15/2023 10:28 PM EST [employer] Comment: HCV antibody was non-reactive. There is no laboratory evidence of HCV infection. In most cases, no further action is required. However, if recent HCV exposure is suspected, a test for HCV RNA (test code 37025) is suggested. For additional information please refer to http://education.Meaningo/faq/OVF42r1 (This link is being provided for informational/ educational purposes only.) Blood Structure of peripheral vein / Unknown Venipuncture / Unknown 05/15/2023 10:55 AM EST 05/15/2023 11:27 AM EST [facility] 05/15/2023 10:28 PM EST [facility] Received Date:[id number] us Violeta Quintana MD LAB BLOOD ORDERABLES Final Re sult [facility] [address] [facility] [address]rd [address], [place] [address], [place] [phone] [employer] / [employer] [facility] [address] [facility] [address]rd [address], [place] [address], [place] [phone] from Last 3 Months or Most Recently Relevant to Health Maintenance [place] [address] [place] [address] Care Teams Senior Outside Sales Representative Relationship Specialty Start Date End Date Regina Paz [address] [place] [address] PCP - General Pediatrics 12/21/22
--- OUTSIDE RECORDS SUMMARY | 2024-07-03 07:53 | XMS_ITS | Encounter Summary ---
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 MEDICAL [address] [place] [address] Regina Paz MD [address] [place] [address] 12/11/2024 8:30 AM EDT Office Visit [facility] DENTAL [address] [place] [address] Darron Cedeño 01/12/2025 8:30 AM EDT Office Visit [facility] OPTOMETRY [address] [place] [address] Tessa Randall, OD [address] [place] [address] documented as of this encounter Procedures Procedure Name Priority Date/Time Associated Diagnosis Comments BI MAMMOGRAM SCREENING BILATERAL Routine 02/29/2024 3:34 PM EDT documented in this encounter Results * BI Mammogram Screening Bilateral (02/29/2024 3:34 PM EDT) Anatomical Region Laterality Modality Breast Bilateral Mammography Regina Paz MD IMG BI PROCEDURES Final Result documented in this encounter Visit Diagnoses Not on filedocumented in this encounter Additional Health Concerns Assessment Noted Time PHQ-9 Depression Total Score: 12 024 9:05 AM EST documented as of this encounter Care Teams Human Resources Operations Specialist Relationship Specialty Start Date End Date Regina Paz MD [address] [place] [address] PCP - General Internal Medicine 06/09/22 documented as of this encounter
--- OUTSIDE RECORDS SUMMARY | 2024-07-03 07:53 | XMS_ITS | Encounter Summary ---
Author Organization [employer] Address [address] [place] [address] [place] [address] Care Team Providers Care On Call Name Role Phone Regina Paz MD Primary Care Provider [phone] Encounter Details Date Type Department Care Team (Latest Contact Info) Description 02/16/2021 Abstract [facility] CONVERSIONS Dental, Provider, DDS Social [...] 10:30 AM EST Office Visit [facility] MEDICAL [address] [place] [address] Regina Paz MD [address] [place] [address] 12/11/2024 8:30 AM EDT Office Visit [facility] DENTAL [address] [place] [address] Darron Cedeño 01/12/2025 8:30 AM EDT Office Visit [facility] OPTOMETRY [address] [place] [address] Tessa Randall OD [address] [place] [address] documented as of this encounter Visit Diagnoses Not on filedocumented in this encounter Care Teams On Call Relationship Specialty Start Date End Date Regina Paz MD [address] [place] [address] PCP - General Internal Medicine 06/09/22 documented as of this encounter
--- OUTSIDE RECORDS SUMMARY | 2024-07-03 07:53 | XMS_ITS | Encounter Summary ---
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 Not on file documented as of this encounter Plan of Treatment Upcoming Encounters Date Type Department Care Team (Late st Contact Info) Description 07/17/2024 10:30 AM EST Office Visit [facility] MEDICAL [address] [place] [address] Regina Paz MD [address] [place] [address] 12/11/2024 8:30 AM EDT Office Visit [facility] DENTAL [address] [place] [address] Darron Cedeño 01/12/2025 8:30 AM EDT Office Visit [facility] OPTOMETRY [address] [place] [address] Tessa Randall, OD [address] [place] [address] documented as of this encounter Procedures Procedure Name Priority Date/Time Associated Diagnosis Comments US THYROID Routine 01/14/2024 10:05 AM EDT documented in this encounter Results * US Thyroid (01/14/2024 10:05 AM EDT) Anatomical Region Laterality Modality Head, Neck Ultrasound us Regina Paz MD IMG US PROCEDURES Final Result documented in this encounter Visit Diagnoses Not on filedocumented in this encounter Additional Health Concerns Assessment Noted Time PHQ-9 Depression Total Score: 12 024 9:05 AM EST documented as of this encounter Care Teams Chef Saucier Relationship Specialty Start Date End Date Regina Paz MD [address] [place] [address] PCP - General Internal Medicine 06/09/22 documented as of this encounter
--- OUTSIDE RECORDS SUMMARY | 2024-07-03 07:53 | XMS_ITS | Encounter Summary ---
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 Not on file Not on file documented as of this encounter Plan of Treatment Upcoming Encounters Date Type Department Care Team (Late st Contact Info) Description 07/17/2024 10:30 AM EST Office Visit [facility] MEDICAL [address] [place] [address] Regina Paz MD [address] [place] [address] 12/11/2024 8:30 AM EDT Office Visit [facility] DENTAL [address] [place] [address] Darron Cedeño 01/12/2025 8:30 AM EDT Office Visit [facility] OPTOMETRY [address] [place] [address] Tessa Randall OD [address] [place] [address] documented as of this encounter Procedures Procedure Name Priority Date/Time Associated Diagnosis Comments ALLERGEN DRUG: ACTH (ADRENOCORTICOTROPHIC HORMONE) IGE Routine 06/11/2024 1:27 PM EST documented in this encounter Results * Acth IgE (06/11/2024 1:27 PM EST) Blood Venous blood specimen / Unknown us Historical Provider LAB BLOOD ORDERABLES Laly l Result documented in this encounter Visit Diagnoses Not on filedocumented in this encounter Additional Health Concerns Assessment Noted Time PHQ-9 Depression Total Score: 12 024 9:05 AM EST documented as of this encounter Care Teams Look Out Tower Fire Watcher Relationship Specialty Start Date End Date Regina Paz MD [address] [place] [address] PCP - General Internal Medicine 06/09/22 documented as of this encounter
--- OUTSIDE RECORDS SUMMARY | 2024-07-03 07:53 | XMS_ITS | Encounter Summary ---
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 Not on file Not on file documented as of this encounter Plan of Treatment Upcoming Encounters Date Type Department Care Team (Late st Contact Info) Description 07/17/2024 10:30 AM EST Office Visit [facility] MEDICAL [address] [place] [address] Regina Paz MD [address] [place] [address] 12/11/2024 8:30 AM EDT Office Visit [facility] DENTAL [address] [place] [address] Darron Cedeño 01/12/2025 8:30 AM EDT Office Visit [facility] OPTOMETRY [address] [place] [address] Tessa Randall, OD [address] [place] [address] documented as of this encounter Procedures Procedure Name Priority Date/Time Associated Diagnosis Comments PATHOLOGY REPORT (HISTOPATHOLOGY) Routine 07/11/2023 12:48 PM EST documented in this encounter Results * Pathology Report (07/11/2023 12:48 PM EST) Tissue us Regina Paz MD LAB PATHOLOGY ORDERABLES Final R esult documented in this encounter Visit Diagnoses Not on filedocumented in this encounter Additional Health Concerns Assessment Noted Time PHQ-9 Depression Total Score: 12 024 9:05 AM EST documented as of this encounter Care Teams Clock Maker Relationship Specialty Start Date End Date Regina Paz MD [address] [place] [address] PCP - General Internal Medicine 06/09/22 documented as of this encounter
--- OUTSIDE RECORDS SUMMARY | 2024-07-03 07:53 | XMS_ITS | Encounter Summary ---
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 Brushing 2x daily Regular brushing is a good basis to keep your teeth healthy for a long time: you should reach for the brush at least twice a day, preferably in the morning before breakfast (so that plaque which has formed over night is removed before eating) and in the evening before bedtime. 2. The right tools make the difference A good toothbrush has a short head, soft plastic bristles with rounded bristle ends and a planar bristle field. Good cleaning results can also be achieved with modern electric toothbrushes - you are best advised by your dentist. When you purchase your toothpaste make sure it contains fluoride. 3. Important: do not forget interdental spaces In addition to regular brushing, clean your interdental spaces with dental floss or interdental brushes, as this area is particularly prone to caries. Seek advice from your dentist as to what tools are best suited for your teeth. 4. Tongue cleaning The importance of cleaning your teeth regularly for good oral care is known. The tongue is, however, often forgotten - a coated tongue is a common cause of bad breath. Cleaning one???s tongue regularly, reduces the amount of harmful germs in the mouth and simultaneously provides fresh breath. Pharmacies and well- stocked [facility] carry special brushes and scrapers for the removal of tongue coating. 5. Biannual dental check-ups documented in this encounter Progress Notes * DUONG Garcia - 06/06/2024 9:20 AM EST + recall / Perio exam MH: no changes since last visit CC: none expressed. Adult OCS: WNL. IOE:nsf Today's TX: pre- rinse with [employer] Peroxyl, (Due to Covid-19 Questionnaire Perio Case Type: Type II Generalized. Grade B Oral Hygiene: Fair. generalized moderate plaque, localized calculus, lingual lower anterior X-Rays; \4 BWX exposed for diagnosed and treatment planning. No decay noted. Light scaling with hand instruments and Cavitron. ultrasonic with Releaf high speed suction OHI:tooth brushing with Epps technique and flossing instruction. Educational material dispensed: None dispensed. Exam by Dr JOSE SMITH plan presented with risks, recommendations and alternatives. Referral (s): None given . . [place]:6 [facility] NOTES:patient did great!! Julissa Macedo documented in this encounter Plan of Treatment Upcoming Encounters Date Type Department Care Team (Late st Contact Info) Description 07/17/2024 10:30 AM EST Office Visit [facility] MEDICAL [address] [place] [address] Regina Paz MD [address] [place] [address] 12/11/2024 8:30 AM EDT Office Visit [facility] DENTAL [address] [place] [address] Darron Cedeño 01/12/2025 8:30 AM EDT Office Visit [facility] OPTOMETRY [address] [place] [address] Tessa Randall OD [address] [place] [address] documented as of this encounter Procedures Procedure Name Priority Date/Time Associated Diagnosis Comments Full PROPHYLAXIS - ADULT Routine 025 9:20 AM EST PERIODIC ORAL EVALUATION - ESTABLISHED PATIENT Routine 06/06/2024 9:20 AM EST ORAL HYGIENE INSTRUCTIONS Routine 2024 9:20 AM EST BITEWINGS - 4 RADIOGRAPHIC IMAGES Routine 06/06/2024 9:20 AM EST documented in this encounter Visit Diagnoses Diagnosis Stage 2 grade B generalized periodontitis per AAP/EFP 2017 classification- Primary Encounter for dental examination documented in this encounter Additional Health Concerns Assessment Noted Time PHQ-9 Depression Total Score: 12 024 9:05 AM EST documented as of this encounter Care Teams Information Security Risk Analyst Relationship Specialty Start Date End Date Regina Paz MD [address] [place] [address] PCP - General Internal Medicine 06/09/22 documented as of this encounter
--- OUTSIDE RECORDS SUMMARY | 2024-07-03 07:53 | XMS_ITS | Encounter Summary ---
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 file Not on file documented as of this encounter Plan of Treatment Upcoming Encounters Date Type Department Care Team (Late st Contact Info) Description 07/17/2024 10:30 AM EST Office Visit [facility] MEDICAL [address] [place] [address] Regina Paz MD [address] [place] [address] 12/11/2024 8:30 AM EDT Office Visit [facility] DENTAL [address] [place] [address] Darron Cedeño 01/12/2025 8:30 AM EDT Office Visit [facility] OPTOMETRY [address] [place] [address] Tessa Randall OD [address] [place] [address] documented as of this encounter Procedures Procedure Name Priority Date/Time Associated Diagnosis Comments ALDOSTERONE Routine 05/06/2024 1:47 PM EST documented in this encounter Results * Aldosterone (05/06/2024 1:47 PM EST) us Historical Provider LAB BLOOD ORDERABLES Laly l Result documented in this encounter Visit Diagnoses Not on filedocumented in this encounter Additional Health Concerns Assessment Noted Time PHQ-9 Depression Total Score: 12 024 9:05 AM EST documented as of this encounter Care Teams Lead Programmer Analyst Relationship Specialty Start Date End Date Regina Paz MD [address] [place] [address] PCP - General Internal Medicine 06/09/22 documented as of this encounter
--- OUTSIDE RECORDS SUMMARY | 2024-07-03 07:53 | XMS_ITS | Encounter Summary ---
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 file Not on file documented as of this encounter Plan of Treatment Upcoming Encounters Date Type Department Care Team (Late st Contact Info) Description 07/17/2024 10:30 AM EST Office Visit [facility] MEDICAL [address] [place] [address] Regina Paz MD [address] [place] [address] 12/11/2024 8:30 AM EDT Office Visit [facility] DENTAL [address] [place] [address] Darron Cedeño 01/12/2025 8:30 AM EDT Office Visit [facility] OPTOMETRY [address] [place] [address] Tessa Randall, OD [address] [place] [address] documented as of this encounter Procedures Procedure Name Priority Date/Time Associated Diagnosis Comments XR CHEST 2 VIEWS Routine 04/17/2024 12:12 PM EST documented in this encounter Results * XR Chest 2 Views (04/17/2024 12:12 PM EST) Anatomical Region Laterality Modality Chest Radiographic Yaneli ging Regina Paz MD IMG XR PROCEDURES Final Result documented in this encounter Visit Diagnoses Not on filedocumented in this encounter Additional Health Concerns Assessment Noted Time PHQ-9 Depression Total Score: 12 024 9:05 AM EST documented as of this encounter Care Teams Stave Grader Relationship Specialty Start Date End Date Regina Paz MD [address] [place] [address] PCP - General Internal Medicine 06/09/22 documented as of this encounter
--- OUTSIDE RECORDS SUMMARY | 2024-07-03 07:53 | XMS_ITS | Encounter Summary ---
Author Organization [employer] Address [address] [place] [address] [address], [place] [address] Care Team Providers Care Mobility Developer Name Role Phone Regina Paz MD Primary Care Provider [phone] Encounter Details Date Type Department Care Team (Latest Contact Info) Description 08/02/2020 Abstract [facility] CONVERSIONS Dental, Provider, DDS Social [...] Description 07/17/2024 10:30 AM EST Office Visit [facility] MEDICAL [address] [place] [address] Regina Paz MD [address] [place] [address] 12/11/2024 8:30 AM EDT Office Visit [facility] DENTAL [address] [place] [address] Darron Cedeño 01/12/2025 8:30 AM EDT Office Visit [facility] OPTOMETRY [address] [place] [address] Tessa Randall OD [address] [place] [address] documented as of this encounter Visit Diagnoses Not on filedocumented in this encounter Care Teams Mobility Developer Relationship Specialty Start Date End Date Regina Paz MD [address] [place] [address] PCP - General Internal Medicine 06/09/22 documented as of this encounter
--- OUTSIDE RECORDS SUMMARY | 2024-07-03 07:53 | XMS_ITS | Encounter Summary ---
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 on file Not on file documented as of this encounter Plan of Treatment Upcoming Encounters Date Type Department Care Team (Late st Contact Info) Description 07/17/2024 10:30 AM EST Office Visit [facility] MEDICAL [address] [place] [address] Regina Paz MD [address] [place] [address] 12/11/2024 8:30 AM EDT Office Visit [facility] DENTAL [address] [place] [address] Darron Cedeño 01/12/2025 8:30 AM EDT Office Visit [facility] OPTOMETRY [address] [place] [address] Tessa Randall, OD [address] [place] [address] documented as of this encounter Procedures Procedure Name Priority Date/Time Associated Diagnosis Comments MR NECK SOFT TISSUE ONLY W A ND WO CONTRAST Routine 12/28/2023 Thyroglossal duct cyst documented in this encounter Results * Mr Neck Soft Tissue only w/ and w/o Contrast (12/28/2023) Anatomical Region Laterality Modality Head, Neck Magnetic Resonan ce us Regina Paz MD IMG MRI PROCEDURES Final Result documented in this encounter Visit Diagnoses Diagnosis 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
--- OUTSIDE RECORDS SUMMARY | 2024-07-03 07:53 | XMS_ITS | Encounter Summary ---
Author Organization [employer] Address 75 [facility] 7t [place] [address] Care Team Providers Care Tyre Builder Name Role Phone Regina Paz MD Primary Care Provider [phone] Reason for Visit * Reason Onset Date Comments Med Refill 06/17/2024 Encounter Details Date Type Department Care Team (Late st Contact Info) Description 06/17/2024 Refill [facility] MEDICAL [address] [place] [address] Regina Paz MD [address] [place] [address] Migraine without aura and without status migrainosus, not intractable Social History Tobacco Use Types Packs/Day Years [...] 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 file Not on file documented as of this encounter Plan of Treatment Upcoming Encounters Date Type Department Care Team (Late st Contact Info) Description 07/17/2024 10:30 AM EST Office Visit [facility] MEDICAL [address] [place] [address] Regina Paz MD [address] [place] [address] 12/11/2024 8:30 AM EDT Office Visit [facility] DENTAL [address] [place] [address] Darron Cedeño 01/12/2025 8:30 AM EDT Office Visit [facility] OPTOMETRY [address] [place] [address] Tessa Randall, JORGITO [address] [place] [address] documented as of this encounter Visit Diagnoses Diagnosis Migraine without aura and without status migrainosus, not intractable documented in this encounter Additional Health Concerns Assessment Noted Time PHQ-9 Depression Total Score: 12 024 9:05 AM EST documented as of this encounter Care Teams Tyre Builder Relationship Specialty Start Date End Date Regina Paz MD [address] [place] [address] PCP - General Internal Medicine 06/09/22 documented as of this encounter
--- OUTSIDE RECORDS SUMMARY | 2024-07-03 07:53 | XMS_ITS | Encounter Summary ---
Author Organization [employer] Address 75 [facility] 7t [place] [address] Care Team Providers Care Counseling Services Director Name Role Phone Regina Paz MD Primary Care Provider [phone] Reason for Visit * Reason Comments Med Refill Encounter Details Date Type Department Care Team (Late st Contact Info) Description 06/16/2024 Refill [facility] MEDICAL [address] [place] [address] Vielka Blevins DO [address] [place] [address] Migraine without aura and without status migrainosus, [...] is your housing situation today? 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 MEDICAL [address] [place] [address] Regina Paz MD [address] [place] [address] 12/11/2024 8:30 AM EDT Office Visit [facility] DENTAL [address] [place] [address] Darron Cedeño 01/12/2025 8:30 AM EDT Office Visit [facility] OPTOMETRY [address] [place] [address] Tessa Randall, OD [address] [place] [address] documented as of this encounter Visit Diagnoses Diagnosis Migraine without aura and without status migrainosus, not intractable documented in this encounter Additional Health Concerns Assessment Noted Time PHQ-9 Depression Total Score: 12 024 9:05 AM EST documented as of this encounter Care Teams Counseling Services Director Relationship Specialty Start Date End Date Regina Paz MD [address] [place] [address] PCP - General Internal Medicine 06/09/22 documented as of this encounter
--- OUTSIDE RECORDS SUMMARY | 2024-07-03 07:53 | XMS_ITS | Encounter Summary ---
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 MEDICAL [address] [place] [address] Regina Paz MD [address] [place] [address] 12/11/2024 8:30 AM EDT Office Visit [facility] DENTAL [address] [place] [address] Darron Cedeño 01/12/2025 8:30 AM EDT Office Visit [facility] OPTOMETRY [address] [place] [address] Tessa Randall, OD [address] [place] [address] documented as of this encounter Procedures Procedure Name Priority Date/Time Associated Diagnosis Comments CT CHEST ANGIO W AND WO IV CONTRAST Routine 10/12/2023 10:[address] ABDOMEN PELVIS W CONTRAST Routine 10/12/2023 10:31 AM EDT documented in this encounter Results * CT CHEST ANGIO W AND WO IV CONTRAST (10/12/2023 10:32 AM EDT) Anatomical Region Laterality Modality Computed Tomogra phy Regina Paz MD [facility] CT PROCEDURES Final Result * CT Abdomen Pelvis w/ Contrast (10/12/2023 10:31 AM EDT) Anatomical Region Laterality Modality Body, Pelvis, Abdomen Computed T omography us Regina Paz MD IMG CT PROCEDURES Final Result documented in this encounter Visit Diagnoses Not on filedocumented in this encounter Additional Health Concerns Assessment Noted Time PHQ-9 Depression Total Score: 12 024 9:05 AM EST documented as of this encounter Care Teams Pulpwood Buyer Relationship Specialty Start Date End Date Regina Paz MD [address] [place] [address] PCP - General Internal Medicine 06/09/22 documented as of this encounter
--- OUTSIDE RECORDS SUMMARY | 2024-07-03 07:53 | XMS_ITS | Encounter Summary ---
Author Organization [employer] Address [address] [facility] 7t [place] [address] Care Team Providers Care Electrical Assistant Name Role Phone Regina Paz MD Primary Care Provider [phone] Encounter Details Date Type Department Care Team (Late st Contact Info) Description 02/28/2024 Orders Only [facility] [address] [place] [address] Regina Paz MD [address] [place] [address] Social History Tobacco Use Types Packs/Day Years [...] your housing situation today? 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 Not on file Not on file documented as of this encounter Plan of Treatment Upcoming Encounters Date Type Department Care Team (Late st Contact Info) Description 07/17/2024 10:30 AM EST Office Visit [facility] MEDICAL [address] [place] [address] Regina Paz MD [address] [place] [address] 12/11/2024 8:30 AM EDT Office Visit [facility] DENTAL [address] [place] [address] Darron Cedeño 01/12/2025 8:30 AM EDT Office Visit [facility] OPTOMETRY [address] [place] [address] Tessa Randall, OD [address] [place] [address] documented as of this encounter Procedures Procedure Name Priority Date/Time Associated Diagnosis Comments TSH AND FREE T4 Routine 02/28/2024 1:20 PM EDT documented in this encounter Results * TSH and Free T4 (02/28/2024 1:20 PM EDT) Blood Venous blood specimen / Unknown us Regina Paz MD LAB BLOOD ORDERABLES Final Resul t documented in this encounter Visit Diagnoses Not on filedocumented in this encounter Additional Health Concerns Assessment Noted Time PHQ-9 Depression Total Score: 12 024 9:05 AM EST documented as of this encounter Care Teams Electrical Assistant Relationship Specialty Start Date End Date Regina Paz MD [address] [place] [address] PCP - General Internal Medicine 06/09/22 documented as of this encounter
--- OUTSIDE RECORDS SUMMARY | 2024-07-03 07:53 | XMS_ITS | Encounter Summary ---
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 Not on file Not on file documented as of this encounter Plan of Treatment Upcoming Encounters Date Type Department Care Team (Late st Contact Info) Description 07/17/2024 10:30 AM EST Office Visit [facility] MEDICAL [address] [place] [address] Regina Paz MD [address] [place] [address] 12/11/2024 8:30 AM EDT Office Visit [facility] DENTAL [address] [place] [address] Darron Cedeño 01/12/2025 8:30 AM EDT Office Visit [facility] OPTOMETRY [address] [place] [address] Tessa Randall OD [address] [place] [address] documented as of this encounter Procedures Procedure Name Priority Date/Time Associated Diagnosis Comments OTHER REF TEST - MISC Routine 05/12/2024 7:26 AM EST OTHER REF TEST - MISC Routine 05/06/2024 7:32 AM EST OTHER REF TEST - MISC Routine 05/06/2024 7:27 AM EST FSH AND LH Routine 05/06/2024 7:27 AM EST PROLACTIN Routine 05/06/2024 7:27 AM EST DHEA SULFATE Routine 05/06/2024 7:27 AM EST documented in this encounter Results * Other Reference Test - Misc (05/12/2024 7:26 AM EST) us Historical Provider LAB BLOOD ORDERABLES Laly l Result * Other Reference Test - Misc (05/06/2024 7:32 AM EST) [facility] Provider MD LAB BLOOD ORDERABLES Laly l Result * FSH And LH (05/06/2024 7:27 AM EST) [facility] Provider MD LAB BLOOD ORDERABLES Laly l Result * Prolactin (05/06/2024 7:27 AM EST) Blood Venous blood specimen / Unknown [facility] Provider MD LAB BLOOD ORDERABLES Laly l Result * Other Reference Test - Misc (05/06/2024 7:27 AM EST) Result [facility] Provider MD LAB BLOOD ORDERABLES Laly l Result * DHEA Sulfate (05/06/2024 7:27 AM EST) Blood Venous blood specimen / Unknown [facility] Provider MD LAB BLOOD ORDERABLES Laly l Result documented in this encounter Visit Diagnoses Not on filedocumented in this encounter Additional Health Concerns Assessment Noted Time PHQ-9 Depression Total Score: 12 024 9:05 AM EST documented as of this encounter Care Teams Metal Expediter Relationship Specialty Start Date End Date Regina Paz MD [address] [place] [address] PCP - General Internal Medicine 06/09/22 documented as of this encounter
--- OUTSIDE RECORDS SUMMARY | 2024-07-03 07:53 | XMS_ITS | Referral Summary ---
Author Organization [facility] Address [address] [place] [address] Care Team Providers Care Stamp Clerk Name Role Phone Regina Paz Primary Care Provider [phone] Allergies Active Allergy Reactions Criticality Noted Date [...] 08/21/2023 9:07 AM EDT Plan of Treatment Not on file Procedures * Due to [place] [employer] law, this organization might not be sharing negative HIV tests. Procedure Name Priority Date/Time Associated Diagnosis Comments HEPATITIS C ANTIBODY W/REFLEX TO HCV RNA, QUANTITATIVE PCR Routine 05/15/2023 10:55 AM EST Pericarditis, unspecified chronicity, unspecified type from Last 3 Months or Most Recently Relevant to Health Maintenance Results * Due to [place] [employer] law, this organization might not be sharing negative HIV tests. * Hepatitis C Antibody w/Reflex to HCV RNA, Quantitative PCR (05/15/2023 10:55 AM EST) Hepatitis C Antibody NON-REACT LIOR NON-REACT LIOR 05/15/2023 10:28 PM EST [employer] [facility] Comment: HCV antibody was non-reactive. There is no laboratory evidence of HCV infection. In most cases, no further action is required. However, if recent HCV exposure is suspected, a test for HCV RNA (test code 04712) is suggested. For additional information please refer to http://education.[employer]/faq/GPQ32d0 (This link is being provided for informational/ educational purposes only.) Blood Structure of peripheral vein / Unknown Venipuncture / Unknown 05/15/2023 10:55 AM EST 05/15/2023 11:27 AM EST Narrative [facility] - 05/15/2023 10:28 PM EST [facility] Received Date: us Violeta Quintana MD LAB BLOOD ORDERABLES Final Re sult MARLY GUAYANILLA [address] [facility] 3rd [address], [place] [address], [place] [phone] [facility] [address], [place] [address], [place] [phone] from Last 3 Months or Most Recently Relevant to Health Maintenance Insurance [place] [id number] [facility] Care Teams Stamp Clerk Relationship Specialty Start Date End Date Regina Paz [address] [place] [address] PCP - General Pediatrics 12/21/22
--- OUTSIDE RECORDS SUMMARY | 2024-07-03 07:53 | XMS_ITS | Encounter Summary ---
Author Organization [facility] Address [address] [place] [address] [address], [place] [address] Care Team Providers Care Remelt Worker Name Role Phone Regina Paz MD Primary Care Provider [phone] Encounter Details Date Type Department Care Team (Latest Contact Info) Description 01/26/2020 Abstract [facility] CONVERSIONS Dental, Provider, DDS Social [...] 07/17/2024 10:30 AM EST Office Visit [facility] MEDICAL [address] [place] [address] Regina Paz MD [address] [place] [address] 12/11/2024 8:30 AM EDT Office Visit [facility] DENTAL [address] [place] [address] Darron Cedeño 01/12/2025 8:30 AM EDT Office Visit [facility] OPTOMETRY [address] [place] [address] Tessa Randall OD [address] [place] [address] documented as of this encounter Visit Diagnoses Not on filedocumented in this encounter Care Teams Remelt Worker Relationship Specialty Start Date End Date Regina Paz MD [address] [place] [address] PCP - General Internal Medicine 06/09/22 documented as of this encounter
--- OUTSIDE RECORDS SUMMARY | 2024-07-03 07:53 | XMS_ITS | Encounter Summary ---
Author Organization [facility] Address [address] [place] [address] Care Team Providers Care Assistant Department Manager Name Role Phone Regina Paz Primary Care Provider [phone] Reason for Visit * Reason Onset Date Comments PAC RX Refill 10/08/2023 Dr. Abad Borrego calling from [facility] as she needs clarification re: quantity of how many capsule should patient be taking daily. Encounter Details Date Type Department Care Team (Late st Contact Info) Description 10/08/2023 Telephone [facility] [address] [place] [address] Telephone Intake, Staff PAC RX Refill (Dr. Abad Borrego calling from [facility] as she needs clarification re: quantity of how many capsule should patient be taking daily.) Social History Tobacco Use Types Packs/Day Years Used Date Smoking Tobacco: Former Cigarettes Passive Smoke Exposure: Past Smokeless Tobacco: Never Alcohol Use Standard Drinks/Week Comments Never 0 (1 standard drink = 0.6 oz pur e alcohol) Comments Unknown Sex and Gender Information Value Date Recorded Sex Assigned at Female 12/21/2022 10:28 AM EDT Legal Sex Female 10:18 AM EDT Gender Identity Female 05/08/2023 9:17 AM EST Sexual Orientation Straight 05/08/2023 9: 17 AM EST documented as of this encounter Miscellaneous Notes * Telephone Encounter - Nery Guardado LPN - 10/09/2023 12:29 PM EDT Pharmacist is aware provider confirmed pt should be taking one capsule a day. * Telephone Encounter - Debra Mix 10/08/2023 3:[address] Melgoza patient. Salima calling from [facility] as she needs clarification re: quantity of how many capsule should patient be taking daily. Medication name: NALTREXONE 1.5 MG Salima tel #: [phone]. Thank you-PAC documented in this encounter Plan of Treatment Not on file documented as of this encounter Visit Diagnoses Not on filedocumented in this encounter Care Teams Assistant Department Manager Relationship Specialty Start Date End Date Regina Paz [address] [place] [address] PCP - General Pediatrics 12/21/22 documented as of this encounter
--- OUTSIDE RECORDS SUMMARY | 2024-07-03 07:53 | XMS_ITS | Encounter Summary ---
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 Patient states [facility] is waiting from the paper from the surgeon's office. Patient has appt with surgeon this (07/03/24) and she will make sure the paperwork is faxed to [phone] for [facility] to complete. * Telephone Encounter - Venice Wright - 06/30/2024 12:08 PM EST Patient needs to schedule a pre op clearance appointment. Patient has surgery with sonobello on 07/17. Patient was left a message to call to schedule with us documented in this encounter Plan of Treatment Upcoming Encounters Date Type Department Care Team (Late st Contact Info) Description 07/17/2024 10:30 AM EST Office Visit [facility] MEDICAL [address] [place] [address] Regina Paz MD [address] [place] [address] 12/11/2024 8:30 AM EDT Office Visit [facility] DENTAL [address] [place] [address] Darron Cedeño 01/12/2025 8:30 AM EDT Office Visit [facility] OPTOMETRY [address] [place] [address] Tessa Randall OD [address] [place] [address] documented as of this encounter Visit Diagnoses Not on filedocumented in this encounter Additional Health Concerns Assessment Noted Time PHQ-9 Depression Total Score: 12 024 9:05 AM EST documented as of this encounter Care Teams Paper Bag Press Operator Relationship Specialty Start Date End Date Regina Paz MD [address] [place] [address] PCP - General Internal Medicine 06/09/22 documented as of this encounter
--- OUTSIDE RECORDS SUMMARY | 2024-07-03 07:54 | XMS_ITS | Encounter Summary ---
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 MEDICAL [address] [place] [address] Regina Paz MD [address] [place] [address] 12/11/2024 8:30 AM EDT Office Visit [facility] DENTAL [address] [place] [address] Darron Cedeño 01/12/2025 8:30 AM EDT Office Visit [facility] OPTOMETRY [address] [place] [address] Tessa Randall, OD [address] [place] [address] documented as of this encounter Procedures Procedure Name Priority Date/Time Associated Diagnosis Comments BASIC METABOLIC PANEL Routine 11/05/2023 10:[address] ABDOMEN PELVIS W CONTRAST Routine 11/05/2023 10:29 AM EDT ECG 12-LEAD Routine 11/05/2023 10:28 AM EDT documented in this encounter Results * Basic Metabolic Panel (11/05/2023 10:30 AM EDT) Blood Venous blood specimen / Unknown us Regina Paz MD LAB BLOOD ORDERABLES Final Resul t * CT Abdomen Pelvis w/ Contrast (11/05/2023 10:29 AM EDT) Anatomical Region Laterality Modality Body, Pelvis, Abdomen Computed T omography us Regina Paz MD IMG CT PROCEDURES Final Result * ECG 12 lead (11/05/2023 10:28 AM EDT) us Regina Paz MD ECG ORDERABLES Final Result documented in this encounter Visit Diagnoses Not on filedocumented in this encounter Additional Health Concerns Assessment Noted Time PHQ-9 Depression Total Score: 12 024 9:05 AM EST documented as of this encounter Care Teams Dragsaw Operator Relationship Specialty Start Date End Date Regina Paz MD [address] [place] [id number] PCP - General Internal Medicine 06/09/22 documented as of this encounter
--- OUTSIDE RECORDS SUMMARY | 2024-07-03 07:54 | XMS_ITS | Clinical Summary ---
Author Organization [facility] Address [address] [place] [address] Care Team Providers Care Regional Ehs Manager Name Role Phone Regina Paz MD Primary Care Provider [phone] Social History Tobacco Use Types Packs/Day Years Used Date Smoking Tobacco: Never Assessed Sex and Gender Information Value Date Recorded Sex Assigned at Not on file Gender Identity Not on file Sexual Orientation Not on file Plan of Treatment Health Maintenance Due Date Last Done Comments Hepatitis C Screening 1965 COVID-19 Vaccine (#1) 03/16/1964 Depression Screening 1975 Preventative Health Evaluation 09/14/1981 Cervical Cancer Screening (Pap Smear) 09/14/1984 Colon Cancer Screening (Colonoscopy) 09/14/2008 Breast Cancer Screening (Mammogram) 09/14/2013 Shingrix-Zoster Vaccine (1 of 2) 09/14/2013 DTap / Tdap / Td (2 - Td or Tdap) 10/28/2015 10/27/2005 Influenza Vaccine (#1) 2024 6, 03/04/2015, 05/08/2014, Additional history exists RSV Adult > 60+ Yrs or (1 - 1-dose 75+ series) 09/14/2038 Hepatitis B Vaccines Aged Out No long er eligible based on patient's age to complete this topic Pneumococcal Vaccine Aged Out No long er eligible based on patient's age to complete this topic RSV Ped < 20 months Aged Out No longe r eligible based on patient's age to complete this topic Care Teams Regional Ehs Manager Relationship Specialty Start Date End Date Regina Paz MD [address] [place] [address] PCP - General Internal Medicine 09/02/20
[2024-07-03 07:57] VITALS: BP 120/72; PULSE 70; O2SAT 98; BMI 30.9
== END 2024-07-03 08:26 | disposition home or self-care (01) ==
PROVIDERS: PCP Internal Medicine; Visit Provider Student in an Organized Health Care Education/Training Program
DX: M32.12 Pericarditis in systemic lupus erythematosus (principal); Z79.60 Long term (current) use of unspecified immunomodulators and immunosuppressants
CPT/HCPCS: 99214

== ENCOUNTER 2024-09-04 10:12 | Outpatient (REF) | payer OTHER, SELFPAY ==
[2024-09-04 11:48] LABS: MANUAL DIFF FLAG NO
--- OUTSIDE RECORDS SUMMARY | 2024-09-04 11:55 | XMS_ITS | Encounter Summary ---
Author Organization [employer] [facility] Address [address] [place] [address] [address] [address] Care Team Providers Care Maintenance Team Leader Name Role Phone Regina Paz MD Primary Care Provider [phone] Encounter Details Date Type Department Care Team [...] Care Team (Late st Contact Info) Description 12/11/2024 8:30 AM EDT Office Visit [facility] DENTAL [address] [place] [address] Darron Cedeño 01/12/2025 8:30 AM EDT Office Visit [facility] OPTOMETRY [address] [place] [address] Tessa Randall OD [address] [place] [address] 02/12/2025 8:00 AM EDT Office Visit [facility] MEDICAL [address] [place] [address] Regina Paz MD [address] [place] [address] documented as of this encounter Visit Diagnoses Not on filedocumented in this encounter Care Teams Maintenance Team Leader Relationship Specialty Start Date End Date Regina Paz MD [address] [place] [address] PCP - General Internal Medicine 06/09/22 documented as of this encounter
--- OUTSIDE RECORDS SUMMARY | 2024-09-04 11:55 | XMS_ITS | Encounter Summary ---
Author Organization [employer] [facility] Address [address] [place] [address] [address] Care Team Providers Care Supervisor Mails Name Role Phone Regina Paz MD Primary Care Provider [phone] Encounter Details Date Type Department Care Team [...] Description 12/11/2024 8:30 AM EDT Office Visit [facility] DENTAL [address] [place] [address] Darron Cedeño 01/12/2025 8:30 AM EDT Office Visit [facility] OPTOMETRY [address] [place] [address] Tessa Randall OD [address] [place] [address] 02/12/2025 8:00 AM EDT Office Visit [facility] MEDICAL [address] [place] [address] Regina Paz MD [address] [place] [address] documented as of this encounter Visit Diagnoses Not on filedocumented in this encounter Care Teams Supervisor Mails Relationship Specialty Start Date End Date Regina Paz MD [address] [place] [address] PCP - General Internal Medicine 06/09/22 documented as of this encounter
--- OUTSIDE RECORDS SUMMARY | 2024-09-04 11:55 | XMS_ITS | Encounter Summary ---
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 DENTAL [address] [place] [address] Darron Cedeño 01/12/2025 8:30 AM EDT Office Visit [facility] OPTOMETRY [address] [place] [address] Tessa Randall OD [address] [place] [address] 02/12/2025 8:00 AM EDT Office Visit [facility] MEDICAL [address] [place] [address] Regina Paz MD [address] [place] [address] documented as of this encounter Procedures Procedure [...] documented as of this encounter Care Teams Balance Wheel Screw Hole Tapper Relationship Specialty Start Date End Date Regina Paz MD [address] [place] [address] PCP - General Internal Medicine 06/09/22 documented as of this encounter
--- OUTSIDE RECORDS SUMMARY | 2024-09-04 11:55 | XMS_ITS | Encounter Summary ---
Author Organization [employer] Address [address] [place] [address], [place] [address] Care Team Providers Care Head Waiter/Waitress Name Role Phone Regina Paz MD Primary Care Provider [phone] Encounter Details Date Type Department Care Team [...] Description 12/11/2024 8:30 AM EDT Office Visit [facility] DENTAL [address] [place] [address] Darron Cedeño 01/12/2025 8:30 AM EDT Office Visit [facility] OPTOMETRY [address] [place] [address] Tessa Randall OD [address] [place] [address] 02/12/2025 8:00 AM EDT Office Visit [facility] MEDICAL [address] [place] [address] Regina Paz MD [address] [place] [address] documented as of this encounter Visit Diagnoses Not on filedocumented in this encounter Care Teams Head Waiter/Waitress Relationship Specialty Start Date End Date Regina Paz MD [address] [place] [address] PCP - General Internal Medicine 06/09/22 documented as of this encounter
--- OUTSIDE RECORDS SUMMARY | 2024-09-04 11:55 | XMS_ITS | Encounter Summary ---
Author Organization [employer] Address [address] [facility] [address] [place] [address] Care Team Providers Care Fill Plant Operator Name Role Phone Regina Paz MD Primary Care Provider [phone] Encounter Details Date Type Department Care Team (Late st Contact Info) Description 04/23/[address] 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 Not on file documented as of this encounter Plan of Treatment Upcoming Encounters Date Type Department Care Team (Late st Contact Info) Description 12/11/2024 8:30 AM EDT Office Visit [facility] DENTAL [address] [place] [address] Darron Cedeño 01/12/2025 8:30 AM EDT Office Visit [facility] OPTOMETRY [address] [place] [address] Tessa Randall OD [address] [place] [address] 02/12/2025 8:00 AM EDT Office Visit [facility] MEDICAL [address] [place] [address] Regina Paz MD [address] [place] [address] documented as of this encounter Procedures Procedure [...] documented as of this encounter Care Teams Fill Plant Operator Relationship Specialty Start Date End Date Regina Paz MD [address] [place] [id number] PCP - General Internal Medicine 06/09/22 documented as of this encounter
--- OUTSIDE RECORDS SUMMARY | 2024-09-04 11:55 | XMS_ITS | Encounter Summary ---
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 Not on file documented as of this encounter Plan of Treatment Upcoming Encounters Date Type Department Care Team (Late st Contact Info) Description 12/11/2024 8:30 AM EDT Office Visit [facility] DENTAL [address] [place] [address] Darron Cedeño 01/12/2025 8:30 AM EDT Office Visit [facility] OPTOMETRY [address] [place] [address] Tessa Randall, OD [address] [place] [address] 02/12/2025 8:00 AM EDT Office Visit [facility] MEDICAL [address] [place] [address] Regina Paz MD [address] [place] [address] documented as of this encounter Procedures Procedure [...] documented as of this encounter Care Teams Senior Product Engineer Relationship Specialty Start Date End Date Regina Paz MD [address] [place] [address] PCP - General Internal Medicine 06/09/22 documented as of this encounter
--- OUTSIDE RECORDS SUMMARY | 2024-09-04 11:56 | XMS_ITS | Encounter Summary ---
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 Not on file documented as of this encounter Plan of Treatment Upcoming Encounters Date Type Department Care Team (Late st Contact Info) Description 12/11/2024 8:30 AM EDT Office Visit [facility] DENTAL [address] [place] [address] Darron Cedeño 01/12/2025 8:30 AM EDT Office Visit [facility] OPTOMETRY [address] [place] [address] Tessa Randall OD [address] [place] [address] 02/12/2025 8:00 AM EDT Office Visit [facility] MEDICAL [address] [place] [address] Regina Paz MD [address] [place] [address] documented as of this encounter Procedures Procedure [...] Blood Venous blood specimen / Unknown Result [facility] Provider MD LAB BLOOD ORDERABLES Laly l Result * B Type Natriuretic Peptide (BNP) (06/11/2024 7:56 AM EST) Blood Venous blood specimen / Unknown Result [facility] MD LAB BLOOD ORDERABLES Laly l Result * DHEA Sulfate (06/10/2024 7:58 AM EST) Blood Venous blood specimen / Unknown Result [facility] MD LAB BLOOD ORDERABLES Laly l Result * Comprehensive Metabolic Panel (06/10/2024 7:55 AM EST) Blood Venous blood specimen / Unknown Result [facility] MD LAB BLOOD ORDERABLES Laly l Result * C-reactive Protein (06/10/2024 7:55 AM EST) Blood Venous blood specimen / Unknown Result [facility] MD LAB BLOOD ORDERABLES Laly l Result * Lipid Panel, Standard (06/10/2024 7:55 AM EST) Blood Venous blood specimen / Unknown Result [facility] MD LAB BLOOD ORDERABLES Laly l Result * Cortisol Random (06/10/2024 7:55 AM EST) Result [facility] MD LAB BLOOD ORDERABLES Laly l Result [...] documented as of this encounter Care Teams Rate And Cost Analyst Relationship Specialty Start Date End Date Regina Paz MD [address] [place] [address] PCP - General Internal Medicine 06/09/22 documented as of this encounter
--- OUTSIDE RECORDS SUMMARY | 2024-09-04 11:56 | XMS_ITS | Clinical Summary ---
Author Organization [facility] Address [address] [place] [address] Care Team Providers Care Fish Housekeeper Name Role Phone Regina Paz MD Primary Care Provider [phone] Social History Tobacco Use Types Packs/Day Years [...] age to complete this topic Care Teams Fish Housekeeper Relationship Specialty Start Date End Date Regina Paz MD [address] [place] [address] PCP - General Internal Medicine 09/02/20
--- OUTSIDE RECORDS SUMMARY | 2024-09-04 11:56 | XMS_ITS | Encounter Summary ---
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 Not on file documented as of this encounter Plan of Treatment Upcoming Encounters Date Type Department Care Team (Late st Contact Info) Description 12/11/2024 8:30 AM EDT Office Visit [facility] DENTAL [address] [place] [address] Darron Cedeño 01/12/2025 8:30 AM EDT Office Visit [facility] OPTOMETRY [address] [place] [address] Tessa Randall OD [address] [place] [address] 02/12/2025 8:00 AM EDT Office Visit [facility] MEDICAL [address] [place] [address] Regina Paz MD [address] [place] [address] documented as of this encounter Procedures Procedure [...] Noted Time PHQ-9 Depression Total Score: 12 2 024 9:05 AM EST documented as of this encounter Care Teams Warehouse Technician Relationship Specialty Start Date End Date Regina Paz MD [address] [place] [address] PCP - General Internal Medicine 06/09/22 documented as of this encounter
--- OUTSIDE RECORDS SUMMARY | 2024-09-04 11:56 | XMS_ITS | Referral Summary ---
Author Organization [facility] Address [address] [place] [address] Care Team Providers Care Public Address Announcer Name Role Phone Regina Paz Primary Care Provider [phone] Allergies Active Allergy Reactions Criticality Noted Date [...] mg tabletIndication s:Pericarditis, unspecified chronicity, unspecified type (HCC) Take 1 tablet (0.6 mg total) by mouth 2 times a day. 180 tablet 4 Active hydroxychloroqui ne (PLAQUENIL) 200 mg tabletIndication s:Positive BRAYDON (antinuclear antibody),Sicca, unspecified type (HCC),Pericardit is, unspecified chronicity, unspecified type (HCC) Take 1 tablet (200 mg total) by [...] cyst 06/01/2022 Thyroid nodule 06/01/2022 Vasculitis 06/01/2022 Resolved Problems Problem Noted Date Diagnosed Date Resolved Date Hoarseness 06/01/2022 08/21/2023 Immunizations Immunization Administration Dates Next Due Hepatitis B Vaccine, Pediatr ic or Pediatric/Adolescent Dosage 01/15/1993,12/20/1991,07/20/1991 Influenza, Injectable, [place] Canine Kidney, Preservative Free, Quadrivalent 03/16/2023 Influenza, [...] of Diphtheria Toxoid) 09/08/2021,11/15/2010 Tuberculin Skin Test; Purifi ed Protein Derivative Solution, Intradermal 07/06/2011,07/13/2010,2007,1992 Social [...] Not on file Procedures * Due to [place] [employer] law, this organization might not be sharing negative HIV tests. Procedure Name Priority Date/Time Associated Diagnosis Comments HEPATITIS C ANTIBODY W/REFLEX TO HCV RNA, QUANTITATIVE PCR Routine 05/15/2023 10:55 AM EST Pericarditis, unspecified chronicity, unspecified type from Last 3 Months or Most Recently Relevant to Health Maintenance Results * Due to [place] state law, this organization might not be sharing negative HIV tests. * Hepatitis C Antibody w/Reflex to HCV RNA, Quantitative PCR (05/15/2023 10:55 AM EST) Hepatitis C Antibody NON-REACT LIOR NON-REACT LIOR 05/15/2023 10:28 PM EST [employer] Comment: HCV antibody was non-reactive. There is no laboratory evidence of HCV infection. In most cases, no further action is required. However, if recent HCV exposure is suspected, a test for HCV RNA (test code 32391) is suggested. For additional information please refer to http://education.THE MELT/faq/SLR01n2 (This link is being provided for informational/ educational purposes only.) Blood Structure of peripheral vein / Unknown Venipuncture / Unknown 05/15/2023 10:55 AM EST 05/15/2023 11:27 AM EST Narrative [facility] - 05/15/2023 10:28 PM EST [facility] Received Date: us Violeta Quintana MD LAB BLOOD ORDERABLES Final Re sult MARLY HOLLAND [address], [place] [address], [place] [phone] [facility] [address], [place] [address], [place] [phone] from Last 3 Months or Most Recently Relevant to Health Maintenance Insurance [place] [id number] [facility] Care Teams Public Address Announcer Relationship Specialty Start Date End Date Regina Paz [address] [place] [address] PCP - General Pediatrics 12/21/22
--- OUTSIDE RECORDS SUMMARY | 2024-09-04 11:56 | XMS_ITS | Encounter Summary ---
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 Not on file documented as of this encounter Plan of Treatment Upcoming Encounters Date Type Department Care Team (Late st Contact Info) Description 12/11/2024 8:30 AM EDT Office Visit [facility] DENTAL [address] [place] [address] Darron Cedeño 01/12/2025 8:30 AM EDT Office Visit [facility] OPTOMETRY [address] [place] [address] Tessa Randall OD [address] [place] [address] 02/12/2025 8:00 AM EDT Office Visit [facility] MEDICAL [address] [place] [address] Regina Paz MD [address] [place] [address] documented as of this encounter Procedures Procedure Name Priority Date/Time Associated Diagnosis Comments CT ABDOMEN PELVIS WO CONTRAST Routine 08/11/2023 9:[address] CHEST WO CONTRAST Routine 08/11/2023 8:51 AM EDT documented in this encounter Results * CT Abdomen Pelvis w/o Contrast (08/11/2023 9:26 AM EDT) Anatomical Region Laterality Modality Body, Pelvis, Abdomen Computed T omography Regina Paz MD [facility] CT PROCEDURES Final Result * CT Chest [...] documented as of this encounter Care Teams Bottling Supervisor Relationship Specialty Start Date End Date Regina Paz MD [address] [place] [address] PCP - General Internal Medicine 06/09/22 documented as of this encounter
--- OUTSIDE RECORDS SUMMARY | 2024-09-04 11:56 | XMS_ITS | Encounter Summary ---
Author Organization [employer] Address [address] [place] [address] [place], [place] [address] Care Team Providers Care Mud Boss Name Role Phone Regina Paz MD Primary Care Provider [phone] Encounter Details Date Type Department Care Team [...] 12/11/2024 8:30 AM EDT Office Visit [facility] DENTAL [address] [place] [address] Darron Cedeño 01/12/2025 8:30 AM EDT Office Visit [facility] OPTOMETRY [address] [place] [address] Tessa Randall OD [address] [place] [address] 02/12/2025 8:00 AM EDT Office Visit [facility] MEDICAL [address] [place] [address] Regina Paz MD [address] [place] [address] documented as of this encounter Visit Diagnoses Not on filedocumented in this encounter Care Teams Mud Boss Relationship Specialty Start Date End Date Regina Paz MD [address] [place] [address] PCP - General Internal Medicine 06/09/22 documented as of this encounter
--- OUTSIDE RECORDS SUMMARY | 2024-09-04 11:56 | XMS_ITS | Encounter Summary ---
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 Not on file documented as of this encounter Plan of Treatment Upcoming Encounters Date Type Department Care Team (Late st Contact Info) Description 12/11/2024 8:30 AM EDT Office Visit [facility] DENTAL [address] [place] [address] Darron Cedeño 01/12/2025 8:30 AM EDT Office Visit [facility] OPTOMETRY [address] [place] [address] Tessa Randall OD [address] [place] [address] 02/12/2025 8:00 AM EDT Office Visit [facility] MEDICAL [address] [place] [address] Regina Paz MD [address] [place] [address] documented as of this encounter Procedures Procedure [...] Test - Misc (05/06/2024 7:32 AM EST) [facility] Provider MD LAB BLOOD ORDERABLES Laly l Result * FSH And LH (05/06/2024 7:27 AM EST) [facility] Provider MD LAB BLOOD ORDERABLES Laly l Result * Prolactin (05/06/2024 7:27 AM EST) Blood Venous blood specimen / Unknown [facility] Provider MD LAB BLOOD ORDERABLES Laly l Result * Other Reference Test - Misc (05/06/2024 7:27 AM EST) Result [facility] Provider MD LAB BLOOD ORDERABLES Laly l Result * DHEA Sulfate (05/06/2024 7:27 AM EST) Blood Venous blood specimen / Unknown [facility] Provider MD LAB BLOOD ORDERABLES Laly l Result documented in this encounter Visit Diagnoses Not on filedocumented in this encounter Additional Health Concerns Assessment Noted Time PHQ-9 Depression Total Score: 12 024 9:05 AM EST documented as of this encounter Care Teams Glue Reel Operator Relationship Specialty Start Date End Date Regina Paz MD [address] [place] [address] PCP - General Internal Medicine 06/09/22 documented as of this encounter
--- OUTSIDE RECORDS SUMMARY | 2024-09-04 11:56 | XMS_ITS | Encounter Summary ---
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 Not on file Not on file documented as of this encounter Plan of Treatment Upcoming Encounters Date Type Department Care Team (Late st Contact Info) Description 12/11/2024 8:30 AM EDT Office Visit [facility] DENTAL [address] [place] [address] Darron Cedeño 01/12/2025 8:30 AM EDT Office Visit [facility] OPTOMETRY [address] [place] [address] Tessa Randall OD [address] [place] [address] 02/12/2025 8:00 AM EDT Office Visit [facility] MEDICAL [address] [place] [address] Regina Paz MD [address] [place] [address] documented as of this encounter Procedures Procedure [...] documented as of this encounter Care Teams Breaker Layer Relationship Specialty Start Date End Date Regina Paz MD [address] [place] [address] PCP - General Internal Medicine 06/09/22 documented as of this encounter
--- OUTSIDE RECORDS SUMMARY | 2024-09-04 11:56 | XMS_ITS | Encounter Summary ---
Author Organization 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 DENTAL [address] [place] [address] Darron Cedeño 01/12/2025 8:30 AM EDT Office Visit [facility] OPTOMETRY [address] [place] [address] Tessa Randall OD [address] [place] [address] 02/12/2025 8:00 AM EDT Office Visit [facility] MEDICAL [address] [place] [address] Regina Paz MD [address] [place] [address] documented as of this encounter Procedures Procedure [...] documented as of this encounter Care Teams Bistro Attendant Relationship Specialty Start Date End Date Regina Paz MD [address] [place] [address] PCP - General Internal Medicine 06/09/22 documented as of this encounter
--- OUTSIDE RECORDS SUMMARY | 2024-09-04 11:56 | XMS_ITS | Encounter Summary ---
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 file Not on file documented as of this encounter Plan of Treatment Upcoming Encounters Date Type Department Care Team (Late st Contact Info) Description 12/11/2024 8:30 AM EDT Office Visit [facility] DENTAL [address] [place] [address] Darron Cedeño 01/12/2025 8:30 AM EDT Office Visit [facility] OPTOMETRY [address] [place] [address] Tessa Randall OD [address] [place] [address] 02/12/2025 8:00 AM EDT Office Visit [facility] MEDICAL [address] [place] [address] Regina Paz MD [address] [place] [address] documented as of this encounter Procedures Procedure Name Priority Date/Time Associated Diagnosis Comments BASIC METABOLIC PANEL Routine 11/05/2023 10:[address] ABDOMEN PELVIS W CONTRAST Routine 11/05/2023 10:29 AM EDT ECG 12-LEAD Routine 11/05/2023 10:28 AM EDT documented in this encounter Results * Basic Metabolic Panel (11/05/2023 10:30 AM EDT) Blood Venous blood specimen / Unknown Regina Paz MD LAB BLOOD ORDERABLES Final [...] documented as of this encounter Care Teams Mop Maker Relationship Specialty Start Date End Date Regina Paz MD [address] [place] [address] PCP - General Internal Medicine 06/09/22 documented as of this encounter
--- OUTSIDE RECORDS SUMMARY | 2024-09-04 11:56 | XMS_ITS | Clinical Summary ---
Author Organization [facility] Address [address] [place] [address] Care Team Providers Care Kiln Car Repairer Name Role Phone Regina aPz Primary Care Provider [phone] Allergies Active Allergy Reactions Criticality Noted Date [...] Smear 1965 Pap Smear 1965 Sigmoidoscopy 1965 Pneumococcal Vaccine: 50+ Years (1 of 1 - PCV) 09/14/2013 Zoster Vaccines (1 of 2) 09/14/2013 Mammogram 09/13/2019 09/12/2017 COVID-19 Vaccine ( season) 2024 05/17/2023, 03/03/2022, 02/25/2021, Additional history exists Alcohol/Substance Use Screening 05/28/2024 Depression Screening and Follow-Up 05/28/2024 Social Drivers of Health Annual Screening 05/28/2024 CT Lung Cancer Screening (Baseline) 08/10/2024 08/11/2023 Influenza Vaccine (Season Ended) 2025 03/16/2023, 03/03/2022, 02/25/2021, Additional history exists DTaP,Tdap,and Td Vaccines (5 - Td or Tdap) 09/09/2031 09/08/2021, 04/16/2018, 11/15/2010, Additional history exists RSV Vaccine (60+ years old and patients) (1 - 1-dose 75+ series) 09/14/2038 Hepatitis B Vaccines Aged Out 01/15/1993, 12/20/1991, 07/20/1991 No longer eligible based on patient's age to complete this topic Hepatitis C Screening Completed 05/15/2023 Procedures * Due to [place] law, this organization might not be sharing negative HIV tests. Procedure Name Priority Date/Time Associated Diagnosis Comments HEPATITIS C ANTIBODY W/REFLEX TO HCV RNA, QUANTITATIVE PCR Routine 05/15/2023 10:55 AM EST Pericarditis, unspecified chronicity, unspecified type from Last 3 Months or Most Recently Relevant to Health Maintenance Results * Due to [place] law, this organization might not be sharing negative HIV tests. * Hepatitis C Antibody w/Reflex to HCV RNA, Quantitative PCR (05/15/2023 10:55 AM EST) Hepatitis C Antibody NON-REACT LIOR NON-REACT LIOR 05/15/2023 10:28 PM EST [employer] Comment: HCV antibody was non-reactive. There is no laboratory evidence of HCV infection. In most cases, no further action is required. However, if recent HCV exposure is suspected, a test for HCV RNA (test code 28949) is suggested. For additional information please refer to http://education.[employer]Giga/faq/CKQ20c1 (This link is being provided for informational/ educational purposes only.) Blood Structure of peripheral vein / Unknown Venipuncture / Unknown 05/15/2023 10:55 AM EST 05/15/2023 11:27 AM EST [facility] 05/15/2023 10:28 PM EST [facility] Received Date: us Violeta Quintana MD LAB BLOOD ORDERABLES Final Re sult [facility] [address] [facility] 3rd Floor, [place] [address], [place] [phone] [employer] [facility] [address] [facility] 3rd Floor, [place] [address], [place] [phone] from Last 3 Months or Most Recently Relevant to Health Maintenance [facility] Care Teams Kiln Car Repairer Relationship Specialty Start Date End Date Regina Paz [address] [place] [address] PCP - General Pediatrics 12/21/22
--- OUTSIDE RECORDS SUMMARY | 2024-09-04 11:56 | XMS_ITS | Encounter Summary ---
Author Organization [employer] Address [address] [place] [address] [address] [address] Care Team Providers Care Geomorphologist Name Role Phone Regina Paz MD Primary Care Provider [phone] Encounter Details Date Type Department Care Team [...] Description 12/11/2024 8:30 AM EDT Office Visit [facility] DENTAL [address] [place] [address] Darron Cedeño 01/12/2025 8:30 AM EDT Office Visit [facility] OPTOMETRY [address] [place] [address] Tessa Randall OD [address] [place] [address] 02/12/2025 8:00 AM EDT Office Visit [facility] MEDICAL [address] [place] [address] Regina Paz MD [address] [place] [address] documented as of this encounter Visit Diagnoses Not on filedocumented in this encounter Care Teams Geomorphologist Relationship Specialty Start Date End Date Regina Paz MD [address] [place] [address] PCP - General Internal Medicine 06/09/22 documented as of this encounter
--- OUTSIDE RECORDS SUMMARY | 2024-09-04 11:56 | XMS_ITS | Encounter Summary ---
Author Organization [employer] Address [address] [facility] 7t [place] [address] Care Team Providers Care Casket Coverer Name Role Phone Regina Paz MD Primary Care Provider [phone] Encounter Details Date Type Department Care Team (Late st Contact Info) Description 06/22/[address] 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 Not on file documented as of this encounter Plan of Treatment Upcoming Encounters Date Type Department Care Team (Late st Contact Info) Description 12/11/2024 8:30 AM EDT Office Visit [facility] DENTAL [address] [place] [address] Darron Cedeño 01/12/2025 8:30 AM EDT Office Visit [facility] OPTOMETRY [address] [place] [address] Tessa Randall OD [address] [place] [address] 02/12/2025 8:00 AM EDT Office Visit [facility] MEDICAL [address] [place] [address] Regina Paz MD [address] [place] [address] documented as of this encounter Procedures Procedure [...] documented as of this encounter Care Teams Casket Coverer Relationship Specialty Start Date End Date Regina Paz MD [address] [place] [address] PCP - General Internal Medicine 06/09/22 documented as of this encounter
--- OUTSIDE RECORDS SUMMARY | 2024-09-04 11:56 | XMS_ITS | Encounter Summary ---
Author Organization [facility] Address [address] [place] [address] Care Team Providers Care Circulator Name Role Phone Regina Paz Primary Care Provider [phone] Reason for Visit * Reason Onset Date Comments PAC RX Refill 10/08/2023 Dr. Abad Borrego calling from [facility] as she needs clarification re: quantity of how many capsule should patient be taking daily. Encounter Details Date Type Department Care Team (Late st Contact Info) Description 10/08/2023 Telephone [facility] [address] [place] [address] Telephone Intake, Staff PAC RX Refill (Dr. Abad Borrego calling from [facility] as she needs clarification re: quantity [...] EDT Dr. Melgoza patient. Salima calling from [facility] as she needs clarification re: quantity of how many capsule should patient be taking daily. Medication name: NALTREXONE 1.5 MG Salima tel #: [phone]. Thank you-PAC documented in this encounter Plan of Treatment Not on file documented as of this encounter Visit Diagnoses Not on filedocumented in this encounter Care Teams Circulator Relationship Specialty Start Date End Date Regina Paz [address] [place] [address] PCP - General Pediatrics 12/21/22 documented as of this encounter
--- OUTSIDE RECORDS SUMMARY | 2024-09-04 11:56 | XMS_ITS | Encounter Summary ---
Author Organization [employer] Address [address] [facility] 7t [place] [address] Care Team Providers Care Whipper Beater Name Role Phone Regina Paz MD Primary Care Provider [phone] Encounter Details Date Type Department Care Team (Late st Contact Info) Description 05/19/[address] 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 Not on file documented as of this encounter Plan of Treatment Upcoming Encounters Date Type Department Care Team (Late st Contact Info) Description 12/11/2024 8:30 AM EDT Office Visit [facility] DENTAL [address] [place] [address] Darron Cedeño 01/12/2025 8:30 AM EDT Office Visit [facility] OPTOMETRY [address] [place] [address] Tessa Randall OD [address] [place] [address] 02/12/2025 8:00 AM EDT Office Visit [facility] MEDICAL [address] [place] [address] Regina Paz MD [address] [place] [address] documented as of this encounter Procedures Procedure [...] documented as of this encounter Care Teams Whipper Beater Relationship Specialty Start Date End Date Regina Paz MD [address] [place] [address] PCP - General Internal Medicine 06/09/22 documented as of this encounter
--- OUTSIDE RECORDS SUMMARY | 2024-09-04 11:56 | XMS_ITS | Encounter Summary ---
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 DENTAL [address] [place] [address] Darron Cedeño 01/12/2025 8:30 AM EDT Office Visit [facility] OPTOMETRY [address] [place] [address] Tessa Randall OD [address] [place] [address] 02/12/2025 8:00 AM EDT Office Visit [facility] MEDICAL [address] [place] [address] Regina Paz MD [address] [place] [address] documented as of this encounter Procedures Procedure [...] documented as of this encounter Care Teams Physician Assistant Relationship Specialty Start Date End Date Regina Paz MD [address] [place] [address] PCP - General Internal Medicine 06/09/22 documented as of this encounter
--- OUTSIDE RECORDS SUMMARY | 2024-09-04 11:56 | XMS_ITS | Encounter Summary ---
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 Not on file documented as of this encounter Plan of Treatment Upcoming Encounters Date Type Department Care Team (Late st Contact Info) Description 12/11/2024 8:30 AM EDT Office Visit [facility] DENTAL [address] [place] [address] Darron Cedeño 01/12/2025 8:30 AM EDT Office Visit [facility] OPTOMETRY [address] [place] [address] Tessa Randall OD [address] [place] [address] 02/12/2025 8:00 AM EDT Office Visit [facility] MEDICAL [address] [place] [address] Regina Paz MD [address] [place] [address] documented as of this encounter Procedures Procedure [...] Modality Computed Tomogra phy Regina Paz MD IM CT PROCEDURES Final Result * CT Abdomen [...] documented as of this encounter Care Teams Core Sucker Relationship Specialty Start Date End Date Regina Paz MD [address] [place] [address] PCP - General Internal Medicine 06/09/22 documented as of this encounter
--- OUTSIDE RECORDS SUMMARY | 2024-09-04 11:56 | XMS_ITS | Clinical Summary ---
Author Organization [employer] Address [address] [place] [address] 7t [place] [address] Care Team Providers Care Routing Clerk Name Role Phone Regina Paz MD Primary Care Provider [phone] Allergies Active Allergy Reactions Criticality Noted Date [...] Medications melatonin 5 MG tablet PRN Active docusate sodium (Colace) 100 MG capsule Take 100 mg by mouth 2 times daily. Active sennosides 25 MG tablet Take 1 tablet by mouth in the morning. OTC Active triamcinolone (Nasacort) 55 MCG/ACT nasal inhaler Nasal Allergy 16.5 g 1 023 Active dicyclomine (Bentyl) 20 MG tablet 023 Active rosuvastatin (Crestor) 10 MG tablet Take 1 tablet (10 mg) by mouth in the morning. 90 tablet 3 024 Active hydroxychloroq uine (Plaquenil) 200 MG tablet TAKE 1 & 1/2 (ONE & ONE-HALF) TABLETS BY MOUTH ONCE DAILY 024 Active ondansetron (Zofran) 8 MG tabletIndicati ons:Migraine without aura and without status migrainosus, not intractable Take 1 tablet (8 mg) by mouth every 8 (eight) hours if needed for nausea or vomiting. 90 tablet 2 024 Active metoclopramide (Reglan) 10 MG tablet Take 1 tablet (10 mg) by mouth 3 times daily. Per GI 180 tablet 3 024 2024 Active anakinra (Kineret) 100 MG/0.67ML injectionIndic ations:Autoimm une disorder (CMS/HCC) Inject 0.67 mL (100 mg) under the skin Once per day. 20.1 mL 11 024 2024 Active colchicine 0.6 MG tablet Take 1 tablet (0.6 mg) by mouth 3 times daily. PRN 90 tablet 024 Active Restasis 0.05 % ophthalmic emulsionIndica tions:Keratiti s sicca, bilateral Administer 1 drop into both eyes every 12 (twelve) hours. 180 each 3 024 2024 Active acyclovir (Zovirax) 400 MG tablet 1 tab p.o. BID PRN herpes lesions, X 7 days per episode 60 tablet 024 Active omeprazole (PriLOSEC) [address] capsule Take 40 mg by mouth Once per day. 024 Active cyclobenzaprin e (Flexeril) 10 MG tabletIndicati ons:Migraine without aura and without status migrainosus, not intractable Take 1 tablet (10 mg) by mouth 2 times daily. 180 tablet 1 024 Active SUMAtriptan (Imitrex) 20 MG/ACT nasal sprayIndicatio ns:Migraine without aura and without status migrainosus, not intractable USE 1 SPRAY(S) ONCE DAILY INTO NOSTRIL(S) NEEDED FOR HEADACHE 6 each 025 Active LORazepam (Ativan) 1 MG tabletIndicati ons:Primary insomnia Take 1 tablet (1 mg) by mouth if needed each day for anxiety for up to 21 days. PRN 21 tablet 025 Active butalbital-zunilda taminophen-caf feine (Esgic) 50-325-40 MG capsuleIndicat ions:Abdominal migraine, not intractable Take 1 capsule by mouth every 4 (four) hours if needed for headaches. 180 capsule 025 2025 Active Compro 25 MG suppositoryInd ications:Abdom inal migraine, not intractable Insert 1 suppository (25 mg) into the rectum every 8 (eight) hours if needed for nausea or vomiting. 12 suppository 2 025 Active butalbital-zunilda taminophen-caf feine (Esgic) 50-325-40 MG capsuleIndicat ions:Abdominal migraine, not intractable TAKE 1 CAPSULE BY MOUTH EVERY 4 HOURS NEEDED 180 capsule 023 2024 Discontinued(R eorder (will not trigger notification to Pharmacy)) metoprolol succinate XL (Toprol-XL) 100 MG 24 hr tablet Take 100 mg by mouth Once per day. Do not crush or chew. 2024 Discontinued(T herapy completed) verapamil SR (Calan SR) 120 MG ER tablet Take 120 mg by mouth at bedtime. Do not crush or chew. 2024 Discontinued(T herapy completed) SUMAtriptan (Imitrex) 20 MG/ACT nasal sprayIndicatio ns:Migraine without aura and without status migrainosus, not intractable USE 1 SPRAY IN NOSTRIL(S) ONCE DAILY NEEDED FOR HEADACHE 6 each 025 2024 Discontinued(D uplicate order (will not trigger notification to Pharmacy)) Compro 25 MG suppository INSERT ONE SUPPOSITORY RECTALLY EVERY 12 HOURS IF NEEDED FOR NAUSEA OR VOMITING FOR UP TO 7 DAYS 025 2024 Discontinued(R eorder (will not trigger notification to Pharmacy)) Active [...] Encounters Date Type Department Care Team Description 08/25/[address] [address] Regina Paz MD Prior Authorization (compro) 08/12/2024 12:00 PM EDT Office Visit [address] [address] Regina Paz MD Autoimmune disorder (CMS/HCC) (Primary Dx); Abdominal migraine, not intractable; BMI 29.0-29.9,adult; Migraine without aura and without status migrainosus, not intractable; Other secondary hypertension 07/24/[address] [address] Regina Paz MD nausea, vomiting, request medication 06/30/[address] [address] Regina Paz MD appointment needed 06/27/2024 2:00 PM EST Office Visit [address] [address] Regina Paz MD Long-term use of high-risk medication (Primary Dx); Primary insomnia; BMI 29.0-29.9,adult; Autoimmune disorder (CMS/HCC); Pre-op evaluation 06/27/2024 Travel 06/22/2024 Orders Only [facility] MEDICAL [address] [place] [address] Reina Martinez MD 06/17/[address] [address] Regina Paz MD Migraine without aura and without status migrainosus, not intractable 06/16/[address] [address] Vielka Blevins DO Migraine without aura and without status migrainosus, not intractable 06/15/2024 Orders Only [facility] [address] [place] [address] Reina Martinez MD 06/12/2024 Orders Only [place] [facility] [address] [place] [address] Regina Paz MD 06/06/2024 9:20 AM EST Office Visit [place] [facility] DENTAL [address] [place], [place] [id number] Julissa Macedo LLD Stage 2 grade B generalized periodontitis per AAP/EFP 2017 classification (Primary Dx); Encounter for dental examination from Last 3 Months Immunizations Name Administration [...] 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 Not on file Last Filed Vital Signs Vital Sign Reading Time Taken Comments Blood Pressure 135/85 08/12/2024 12:07 PM EDT Pulse 91 08/12/2024 12:07 PM EDT Temperature 36.7 ??C (98 ??F) 08/12/2024 12:07 PM EDT Respiratory Rate 16 08/12/2024 12:07 PM EDT Oxygen Saturation 98% 08/12/2024 12:07 PM EDT Inhaled Oxygen Concentration - - Weight 71.7 kg (158 lb) 08/12/2024 12:07 PM EDT Height 160 cm (5' 3 ) 08/12/2024 12:07 PM EDT Body Mass Index 27.99 08/12/2024 12:07 PM EDT Plan of Treatment Upcoming Encounters Date Type Department Care Team (Late st Contact Info) Description 12/11/2024 8:30 AM EDT Office Visit [facility] DENTAL [address] [place] [address] Darron Cedeño 01/12/2025 8:30 AM EDT Office Visit [facility] OPTOMETRY [address] [place] [address] Tessa Randall, JORGITO [address] [place] [address] 02/12/2025 8:00 AM EDT Office Visit [facility] MEDICAL [address] [place] [address] Regina Paz MD [address] [place] [address] Health Maintenance Due Date Last Done Comments [...] 12/04/2023, 05/22/2023, Additional history exists Depression Monitoring 12/25/2024 06/27/2024, 024 Dental X-Ray: Full Mouth 06/02/2025 06/01/2022, 03/12/2015 Dental X-Ray: Bitewings 06/07/2025 06/06/19 25, 05/22/2023, 06/01/2022, Additional history exists Alcohol/Substance Use Screening 06/27/2025 06/27/2024 Depression Screening 06/27/2025 06/27/2024, 06/15/19 24 SDOH Screening 06/27/2025 06/27/2024 Tobacco Screening 08/12/2025 08/12/2024 Mammogram 02/28/2026 02/29/2024, 08/26, 09/08/2021, Additional history [...] ESTABLISHED PATIENT Routine 06/06/2024 9:20 AM EST BI MAMMOGRAM SCREENING BILATERAL Routine 02/29/2024 3:34 PM EDT INTRAORAL - COMPLETE SERIES OF RADIOGRAPHIC IMAGES Routine 06/01/2022 10:00 AM EST Encounter for dental examination HM PAP/HPV Routine 07/16/2020 from Last 3 Months or Most Recently Relevant to Health Maintenance Results * Cannabinoids, MS, Ur RFX (06/27/2024 2:22 PM EST) CANNABINOIDS, Urine +POSITIVE + [facility] Carboxy-THC, Urine 1,584 ng/mg creat [facility] Comment: This test is not intended to distinguish between the metabolites of mjegy-2-ihwuhzoctswzdadbndcu, the predominant form of THC in most herbal or marijuana-based products, and pvbgg-6-geqlaffvypyzpivmufky, a psychoactive compound generally synthesized from other cannabinoids. 06/27/2024 2:22 PM EST 06/27/2024 Comment:URINE Narrative [facility] - 07/01/2024 12:05 AM EST Performed at: ??01 - [facility] [address] [place] [address] ??[id number] Faucets Assembler: Belia George, Phone: ??[phone] us Regina Paz MD HISTORICAL/NON ORDERABLE LABS [...] is not intended to ?? distinguish between epcyd-0-jtatiacpdpnwszibobgz, the predominant ?? form of THC in most herbal or marijuana-based products, and ?? qxefs-3-hisiukcskrzcmctwjmql. Test ?Result ?Flag ?? Units ?Ref Range [...] 12:05 AM EST Performed at: ??01 - [facility] [address] [place] [address] ??[id number] Faucets Assembler: Belia Grey [facility], Phone: ??[phone] us Regina Paz MD LAB URINE ORDERABLES Final Resul t [facility] * Acth IgE (06/11/2024 1:27 PM EST) Blood Venous blood specimen / Unknown Result [facility] Provider MD LAB BLOOD ORDERABLES Laly l Result * B Type Natriuretic Peptide (BNP) (06/11/2024 7:56 AM EST) Blood Venous blood specimen / Unknown Result [facility] LAB BLOOD ORDERABLES Laly l Result * Basic Metabolic Panel (06/11/2024 7:56 AM EST) Blood Venous blood specimen / Unknown Result [facility] LAB BLOOD ORDERABLES Laly l Result * Referral to Cardiology (06/11/2024) Result [facility] Regina Paz MD OUTPATIENT REFERRAL ORDERABLES F inal Result * DHEA Sulfate (06/10/2024 7:58 AM EST) Blood Venous blood specimen / Unknown Result [facility] LAB BLOOD ORDERABLES Laly l Result * Cortisol Random (06/10/2024 7:55 AM EST) Result [facility] LAB BLOOD ORDERABLES Laly l Result * CBC auto differential (06/10/2024 7:55 AM EST) Blood Venous blood specimen / Unknown Result [facility] Provider LAB BLOOD ORDERABLES Laly l Result * Sed Rate by Modified [place] (06/10/2024 7:55 AM EST) Blood Venous blood specimen / Unknown Result [facility] LAB BLOOD ORDERABLES Laly l Result * [...] Blood Venous blood specimen / Unknown Result [facility] Provider LAB BLOOD ORDERABLES Laly l Result * BI Mammogram Screening Bilateral (02/29/2024 3:34 PM EDT) Anatomical Region Laterality Modality Breast Bilateral Mammography Result [facility] Regina Paz MD IMG BI PROCEDURES Final Result * Hm Pap Smear (07/16/2020) Pap smear NEGATIVE Result [facility] Historical Provider HEALTH MAINTENANCE Final Result from Last 3 Months or Most Recently Relevant to Health Maintenance Insurance [facility] , [address] [place] [address] [facility] [place] [address] Care Teams Routing Clerk Relationship Specialty Start Date End Date Regina Paz MD [address] [place] [address] [place] [address] PCP - General Internal Medicine 06/09/22
--- OUTSIDE RECORDS SUMMARY | 2024-09-04 11:56 | XMS_ITS | Encounter Summary ---
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 on file Not on file documented as of this encounter Plan of Treatment Upcoming Encounters Date Type Department Care Team (Late st Contact Info) Description 12/11/2024 8:30 AM EDT Office Visit [facility] DENTAL [address] [place] [address] Darron Cedeño 01/12/2025 8:30 AM EDT Office Visit [facility] OPTOMETRY [address] [place] [address] Tessa Randall OD [address] [place] [address] 02/12/2025 8:00 AM EDT Office Visit [facility] MEDICAL [address] [place] [address] Regina Paz MD [address] [place] [address] documented as of this encounter Procedures Procedure [...] documented as of this encounter Care Teams Mixer And Scaler Relationship Specialty Start Date End Date Regina Paz MD [address] [place] [address] PCP - General Internal Medicine 06/09/22 documented as of this encounter
--- OUTSIDE RECORDS SUMMARY | 2024-09-04 11:56 | XMS_ITS | Encounter Summary ---
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 Not on file documented as of this encounter Plan of Treatment Upcoming Encounters Date Type Department Care Team (Late st Contact Info) Description 12/11/2024 8:30 AM EDT Office Visit [facility] DENTAL [address] [place] [address] Darron Cedeño 01/12/2025 8:30 AM EDT Office Visit [facility] OPTOMETRY [address] [place] [address] Tessa Randall OD [address] [place] [address] 02/12/2025 8:00 AM EDT Office Visit [facility] MEDICAL [address] [place] [address] Regina Paz MD [address] [place] [address] documented as of this encounter Procedures Procedure [...] documented as of this encounter Care Teams Gambreler Relationship Specialty Start Date End Date Regina Paz MD [address] [place] [address] PCP - General Internal Medicine 06/09/22 documented as of this encounter
[2024-09-04 12:04] LABS: Basophils Absolute Auto 0.1 X10*3/uL (0.0-0.2); Eosinophils Absolute Auto 0.3 X10*3/uL (0.0-0.4); Eosinophils Percent Auto 4.2 % (0-4); Hematocrit 40.6 % (37.0-47.0); Hemoglobin 14.1 g/dl (12.0-16.0); Imm Gran Abs Auto 0.02 X10*3/uL (0.00-0.03); Imm Gran Pct Auto 0.3 % (0.0-0.4); Lymphocytes Absolute Auto 1.5 X10*3/uL (1.2-4.9); Mean Corpuscular HGB Conc 34.7 g/dl (31.0-35.0); Mean Corpuscular Hemoglobin 31.1 pg (27.0-33.0); Mean Corpuscular Volume 89.4 fL (80.0-98.0); Mean Platelet Volume 10.9 fL (9.4-12.3); Monocytes Absolute Auto 0.6 X10*3/uL (0.1-1.2); Neutrophils Absolute Auto 3.7 x10*3/uL (2.0-8.3); Neutrophils Percent Auto 59.5 % (45-73); Platelet Count 233 X10*3/uL (160-400); Red Blood Count 4.54 X10*6/uL (4.20-5.50); White Blood Count 6.2 X10*3/uL (4.8-10.8)
[2024-09-04 12:28] LABS: Alanine Aminotransferase 22 U/L (0-31); Albumin Level 4.4 g/dL (3.5-5.0); Alkaline Phosphatase 75 U/L (39-117); Anion Gap 13 (12-20); Aspartate Amino Transferase 31 U/L (5-31); Bilirubin Total 0.4 mg/dL (0.0-1.0); Blood Urea Nitrogen 15 mg/dL (9-16); C Reactive Protein < 0.10 mg/dL (< or = 0.50); Calcium 9.1 mg/dL (8.4-10.2); Carbon Dioxide 25 mmol/L (22-29); Chloride 109 mmol/L (96-108); Estimated Glomerular Filt Rate > 60; Glucose Random 75 mg/dL (60-115); Potassium 3.9 mmol/L (3.3-5.1); Sodium 143 mmol/L (135-145); Total Protein 6.9 g/dL (6.5-8.0)
[2024-09-04 12:57] LABS: HBS Num1 73.15 mIU/mL (0-7.99); HBc Num1 0.17 S/CO (0.00-0.79); HBsAGNum1 0.35 S/CO (0.00-0.99); Hepatitis B Core Antibody Nonreactive (Nonreactive); Hepatitis B Surface Antigen Negative (Negative); ~HepC Num1 0.16 S/CO (0.00-0.79); ~Hepatitis B Surface Antibody REACTIVE (Nonreactive); ~Hepatitis C Antibody Nonreactive (Nonreactive)
[2024-09-04 14:19] LABS: Erythrocyte Sedimentation Rate 2 MM/HR (0-20)
[2024-09-07 14:12] LABS: TS Negative Control Passed; TS Panel A 1; TS Panel B 0; TS Positive Control Passed; TSpotTB Negative (Negative)
[2024-09-09 08:05] LABS: Hepatitis A Antibody IgM 0.14 Index (0-0.79); ~Hepatitis A Antibody IgM Nonreactive (Nonreactive)
== END 2024-09-04 10:13 | disposition home or self-care (01) ==
LOC: HO.WFDLDS 10:12
PROVIDERS: Visit Provider Student in an Organized Health Care Education/Training Program
DX: D89.89 Other specified disorders involving the immune mechanism, not elsewhere classified (principal); M32.12 Pericarditis in systemic lupus erythematosus; Z79.60 Long term (current) use of unspecified immunomodulators and immunosuppressants
CPT/HCPCS: 36415; 80053; 85025; 85652; 86140; 86481; 86704; 86706; 86709; 86803; 87340

== ENCOUNTER 2024-10-08 08:02 | Outpatient (AMB) | payer OTHER, SELFPAY ==
--- OUTSIDE RECORDS SUMMARY | 2024-10-08 08:06 | XMS_ITS | Referral Summary ---
Author Organization [facility] Address [address] [place] [address] Care Team Providers Care Metal Furniture Panel Coverer Name Role Phone Regina Paz Primary Care Provider [phone] Allergies Active Allergy Reactions Criticality Noted Date [...] or Pediatric/Adolescent Dosage 01/15/1993,12/20/1991,07/20/1991 Influenza, Injectable, Madin [place] Canine Kidney, Preservative Free, Quadrivalent 03/16/2023 Influenza, [...] Not on file Procedures * Due to [place] [employer] law, this organization might not be sharing negative HIV tests. Procedure Name Priority Date/Time Associated Diagnosis Comments HEPATITIS C ANTIBODY W/REFLEX TO HCV RNA, QUANTITATIVE PCR Routine 05/15/2023 10:55 AM EST Pericarditis, unspecified chronicity, unspecified type from Last 3 Months or Most Recently Relevant to Health Maintenance Results * Due to [place] state law, this organization might not be sharing negative HIV tests. * Hepatitis C Antibody w/Reflex to HCV RNA, Quantitative PCR (05/15/2023 10:55 AM EST) Hepatitis C Antibody NON-REACT LIOR NON-REACT LIOR 05/15/2023 10:28 PM EST [facility] Comment: HCV antibody was non-reactive. There is no laboratory evidence of HCV infection. In most cases, no further action is required. However, if recent HCV exposure is suspected, a test for HCV RNA (test code 54424) is suggested. For additional information please refer to http://education.VerbalizeIt/faq/CUA35l9 (This link is being provided for informational/ educational purposes only.) Blood Structure of peripheral vein / Unknown Venipuncture / Unknown 05/15/2023 10:55 AM EST 05/15/2023 11:27 AM EST Narrative [facility] - 05/15/2023 10:28 PM EST [facility] Received Date: us Violeta Quintana MD LAB BLOOD ORDERABLES Final Re sult [facility] [address] [place] [address], [place] [phone] [employer] [facility] [address], [place] [address], [place] [phone] from Last 3 Months or Most Recently Relevant to Health Maintenance Insurance [place] [id number] [facility] Care Teams Metal Furniture Panel Coverer Relationship Specialty Start Date End Date Regina Paz [address] [place] [address] PCP - General Pediatrics 12/21/22
--- OUTSIDE RECORDS SUMMARY | 2024-10-08 08:06 | XMS_ITS | Encounter Summary ---
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 on file Not on file documented as of this encounter Plan of Treatment Upcoming Encounters Date Type Department Care Team (Late st Contact Info) Description 12/11/2024 8:30 AM EDT Office Visit [facility] DENTAL [address] [place] [address] Darron Cedeño 01/12/2025 8:30 AM EDT Office Visit [facility] OPTOMETRY 73 [place] [address] Tessa Randall OD [address] [place] [address] 02/12/2025 8:00 AM EDT Office Visit [facility] MEDICAL [address] [place] [address] Regina Paz MD [address] [place] [address] documented as of this encounter Procedures Procedure [...] documented as of this encounter Care Teams Seo Marketing Specialist Relationship Specialty Start Date End Date Regina Paz MD [address] [place] [address] PCP - General Internal Medicine 06/09/22 documented as of this encounter
--- OUTSIDE RECORDS SUMMARY | 2024-10-08 08:06 | XMS_ITS | Encounter Summary ---
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 DENTAL [address] [place] [address] Darron Cedeño 01/12/2025 8:30 AM EDT Office Visit [facility] OPTOMETRY [address] [place] [address] Tessa Randall OD [address] [place] [address] 02/12/2025 8:00 AM EDT Office Visit [facility] MEDICAL [address] [place] [address] Regina Paz MD [address] [place] [address] documented as of this encounter Procedures Procedure [...] as of this encounter Care Teams Information Technology Assistant Relationship Specialty Start Date End Date Regina Paz MD [address] [place] [address] PCP - General Internal Medicine 06/09/22 documented as of this encounter
--- OUTSIDE RECORDS SUMMARY | 2024-10-08 08:06 | XMS_ITS | Encounter Summary ---
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 Not on file documented as of this encounter Plan of Treatment Upcoming Encounters Date Type Department Care Team (Late st Contact Info) Description 12/11/2024 8:30 AM EDT Office Visit [facility] DENTAL [address] [place] [address] Darron Cedeño 01/12/2025 8:30 AM EDT Office Visit [facility] OPTOMETRY [address] [place] [address] Tessa Randall OD [address] [place] [address] 02/12/2025 8:00 AM EDT Office Visit [facility] MEDICAL [address] [place] [address] Regina Paz MD [address] [place] [address] documented as of this encounter Procedures Procedure [...] documented as of this encounter Care Teams Side Gluer Relationship Specialty Start Date End Date Regina Paz MD [address] [place] [address] PCP - General Internal Medicine 06/09/22 documented as of this encounter
--- OUTSIDE RECORDS SUMMARY | 2024-10-08 08:06 | XMS_ITS | Encounter Summary ---
Author Organization [employer] Address [address] [place] [address] 7 [place] [address] Care Team Providers Care Plant Operator Name Role Phone Regina Paz MD Primary Care Provider [phone] Encounter Details Date Type Department Care Team [...] Description 12/11/2024 8:30 AM EDT Office Visit [facility] DENTAL 73 [place] [address] Darron Cedeño 01/12/2025 8:30 AM EDT Office Visit [facility] OPTOMETRY 73 [place] [address] Tessa Randall OD [address] [place] [address] 02/12/2025 8:00 AM EDT Office Visit [facility] MEDICAL [address] [place] [address] Regina Paz MD [address] [place] [address] documented as of this encounter Visit Diagnoses Not on filedocumented in this encounter Care Teams Plant Operator Relationship Specialty Start Date End Date Regina Paz MD [address] [place] [address] PCP - General Internal Medicine 06/09/22 documented as of this encounter
--- OUTSIDE RECORDS SUMMARY | 2024-10-08 08:06 | XMS_ITS | Encounter Summary ---
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 She notes that this is her thrid call to PCP. Sent high priority to PCP. Please call Dr. Abbasi back at [phone] * Telephone Encounter - Ananya Menard - 09/30/2024 3:[address] Abbasi (benefits clerk [employer]) called stating I have a message for SD[facility], tell her my name is Dr. Abbasi and I'm board certified benefits clerk, I'm calling to discuss the patient and their disability, I'm an educational consultant for [employer], please have her call me back, thank you. documented in this encounter Plan of Treatment Upcoming Encounters Date Type Department Care Team (Late st Contact Info) Description 12/11/2024 8:30 AM EDT Office Visit [facility][1] DENTAL [address] [place] [address] Darron Cedeño 01/12/2025 8:30 AM EDT Office Visit [facility][1] OPTOMETRY [address] [place] [address] Tessa Randall, JORGITO [address] [place] [address] 02/12/2025 8:00 AM EDT Office Visit [facility][1] MEDICAL [address] [place] [address] Regina Paz MD [address] [place] [address] documented as of this encounter Visit Diagnoses Not on filedocumented in this encounter Additional Health Concerns Assessment Noted Time PHQ-9 Depression Total Score: 12 024 9:05 AM EST documented as of this encounter Care Teams Lens Finisher Relationship Specialty Start Date End Date Regina Paz MD [address] [place] [address] PCP - General Internal Medicine 06/09/22 documented as of this encounter
--- OUTSIDE RECORDS SUMMARY | 2024-10-08 08:06 | XMS_ITS | Encounter Summary ---
Author Organization [employer] Address [address] [place] [address] 7 [place] [address] Care Team Providers Care Environmental Services Lead Name Role Phone Regina Paz MD Primary Care Provider [phone] Encounter Details Date Type Department Care Team [...] Description 12/11/2024 8:30 AM EDT Office Visit [facility] DENTAL [address] [place] [address] Darron Cedeño 01/12/2025 8:30 AM EDT Office Visit [facility] OPTOMETRY [address] [place] [address] Tessa Randall OD [address] [place] [address] 02/12/2025 8:00 AM EDT Office Visit [facility] MEDICAL [address] [place] [address] Regina Paz MD [address] [place] [address] documented as of this encounter Visit Diagnoses Not on filedocumented in this encounter Care Teams Environmental Services Lead Relationship Specialty Start Date End Date Regina Paz MD [address] [place] [address] PCP - General Internal Medicine 06/09/22 documented as of this encounter
--- OUTSIDE RECORDS SUMMARY | 2024-10-08 08:06 | XMS_ITS | Encounter Summary ---
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 on file Not on file documented as of this encounter Plan of Treatment Upcoming Encounters Date Type Department Care Team (Late st Contact Info) Description 12/11/2024 8:30 AM EDT Office Visit [facility] DENTAL [address] [place] [address] Darron Cedeño 01/12/2025 8:30 AM EDT Office Visit [facility] OPTOMETRY [address] [place] [address] Tessa Randall OD [address] [place] [address] 02/12/2025 8:00 AM EDT Office Visit [facility] MEDICAL [address] [place] [address] Regina Paz MD [address] [place] [address] documented as of this encounter Procedures Procedure [...] documented as of this encounter Care Teams Type Caster Relationship Specialty Start Date End Date Regina Paz MD [address] [place] [address] PCP - General Internal Medicine 06/09/22 documented as of this encounter
--- OUTSIDE RECORDS SUMMARY | 2024-10-08 08:06 | XMS_ITS | Encounter Summary ---
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 DENTAL [address] [place] [address] Darron Cedeño 01/12/2025 8:30 AM EDT Office Visit [facility] OPTOMETRY [address] [place] [address] Tessa Randall OD [address] [place] [address] 02/12/2025 8:00 AM EDT Office Visit [facility] MEDICAL [address] [place] [address] Regina Paz MD [address] [place] [address] documented as of this encounter Procedures Procedure [...] documented as of this encounter Care Teams Dough Catcher Relationship Specialty Start Date End Date Regina Paz MD [address] [place] [address] PCP - General Internal Medicine 06/09/22 documented as of this encounter
--- OUTSIDE RECORDS SUMMARY | 2024-10-08 08:06 | XMS_ITS | Encounter Summary ---
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 documented in this encounter Plan of Treatment Upcoming Encounters Date Type Department Care Team (Late st Contact Info) Description 12/11/2024 8:30 AM EDT Office Visit [facility] DENTAL [address] [place] [address] Darron Cedeño 01/12/2025 8:30 AM EDT Office Visit [facility] OPTOMETRY [address] [place] [address] Tessa Randall OD [address] [place] [address] 02/12/2025 8:00 AM EDT Office Visit [facility] MEDICAL [address] [place] [address] Regina Paz MD [address] [place] [address] documented as of this encounter Visit Diagnoses Not on filedocumented in this encounter Additional Health Concerns Assessment Noted Time PHQ-9 Depression Total Score: 12 024 9:05 AM EST documented as of this encounter Care Teams Railroad Brake Operator Relationship Specialty Start Date End Date Regina Paz MD [address] [place] [address] PCP - General Internal Medicine 06/09/22 documented as of this encounter
--- OUTSIDE RECORDS SUMMARY | 2024-10-08 08:06 | XMS_ITS | Encounter Summary ---
Author Organization [employer] Address [address] [place] [address] 7 [place] [address] Care Team Providers Care Vascular Sonographer Name Role Phone Regina Paz MD Primary Care Provider [phone] Encounter Details Date Type Department Care Team [...] [facility] DENTAL [address] [place] [address] Darron Cedeño 01/12/2025 8:30 AM EDT Office Visit [facility] OPTOMETRY [address] [place] [address] Tessa Randall OD [address] [place] [address] 02/12/2025 8:00 AM EDT Office Visit [facility] MEDICAL [address] [place] [address] Regina Paz MD [address] [place] [address] documented as of this encounter Visit Diagnoses Not on filedocumented in this encounter Care Teams Vascular Sonographer Relationship Specialty Start Date End Date Regina Paz MD [address] [place] [address] PCP - General Internal Medicine 06/09/22 documented as of this encounter
--- OUTSIDE RECORDS SUMMARY | 2024-10-08 08:06 | XMS_ITS | Encounter Summary ---
Author Organization [employer] Address [address] [facility] [address] 7t [place] [address] Care Team Providers Care Nailing Machine Feeder Name Role Phone Regina Paz MD Primary Care Provider [phone] Encounter Details Date Type Department Care Team (Late st Contact Info) Description 06/15/[address] 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 file Not on file documented as of this encounter Plan of Treatment Upcoming Encounters Date Type Department Care Team (Late st Contact Info) Description 12/11/2024 8:30 AM EDT Office Visit [facility] DENTAL [address] [place] [address] Darron Cedeño 01/12/2025 8:30 AM EDT Office Visit [facility] OPTOMETRY [address] [place] [address] Tessa Randall OD [address] [place] [address] 02/12/2025 8:00 AM EDT Office Visit [facility] MEDICAL [address] [place] [address] Regina Paz MD [address] [place] [address] documented as of this encounter Procedures Procedure [...] Blood Venous blood specimen / Unknown Result [facility] MD LAB BLOOD ORDERABLES Laly l Result * B Type Natriuretic Peptide (BNP) (06/11/2024 7:56 AM EST) Blood Venous blood specimen / Unknown Result [facility] MD LAB BLOOD ORDERABLES Laly [facility] Result * DHEA Sulfate (06/10/2024 7:58 AM EST) Blood Venous blood specimen / Unknown Result [facility] MD LAB BLOOD ORDERABLES Laly [facility] Result * Comprehensive Metabolic Panel (06/10/2024 7:55 AM EST) Blood Venous blood specimen / Unknown Result [facility] MD LAB BLOOD ORDERABLES Laly [facility] Result * C-reactive Protein (06/10/2024 7:55 AM EST) Blood Venous blood specimen / Unknown Result [facility] MD LAB BLOOD ORDERABLES Laly l Result * Lipid Panel, Standard (06/10/2024 7:55 AM EST) Blood Venous blood specimen / Unknown Result [facility] MD LAB BLOOD ORDERABLES Laly l Result * Cortisol Random (06/10/2024 7:55 AM EST) Result [facility] MD LAB BLOOD ORDERABLES Laly l Result [...] documented as of this encounter Care Teams Nailing Machine Feeder Relationship Specialty Start Date End Date Regina Paz MD [address] [place] [address] PCP - General Internal Medicine 06/09/22 documented as of this encounter
--- OUTSIDE RECORDS SUMMARY | 2024-10-08 08:06 | XMS_ITS | Clinical Summary ---
Author Organization [employer] Address 75 [facility] 7t [place] [address] Care Team Providers Care Pumping Station Supervisor Name Role Phone Regina Paz MD Primary Care Provider [phone] Allergies Active Allergy Reactions Criticality Noted Date [...] dicyclomine (Bentyl) 20 MG tablet 023 Active hydroxychloroq uine (Plaquenil) 200 MG tablet [...] by mouth Once per day. 024 Active SUMAtriptan (Imitrex) 20 MG/ACT nasal [...] or vomiting. 12 suppository 2 025 Active rosuvastatin (Crestor) 10 MG tablet TAKE 1 TABLET BY MOUTH IN THE MORNING 90 tablet 025 Active cyclobenzaprin e (Flexeril) 10 MG tabletIndicati ons:Migraine without aura and without status migrainosus, not intractable Take 1 tablet by mouth twice daily 180 tablet 025 Active rosuvastatin (Crestor) 10 MG tablet Take 1 tablet (10 mg) by mouth in the morning. 90 tablet 3 024 2024 Discontinued cyclobenzaprin e (Flexeril) 10 MG tabletIndicati ons:Migraine without aura and without status migrainosus, not intractable Take 1 tablet (10 mg) by mouth 2 times daily. 180 tablet 1 024 2024 Discontinued Active Problems Problem Noted Date Diagnosed Date [...] Encounters Date Type Department Care Team Description 10/06/[address] [address] Regina Paz MD Paperwork/Forms 10/01/[address] [address] Regina Paz MD Call Back Request 09/30/[address] [address] Regina Paz MD disability information 09/30/[address] [address] Regina Paz MD Migraine without aura and without status migrainosus, not intractable 09/24/[address] [address] Regina Paz MD request copy of brain test 09/12/[address] [address] Regina Paz MD Fax from [facility] re: disability 09/10/[address] [address] Regina Paz MD 09/09/[address] [address] Regina Paz MD FYI 08/25/[address] [address] Regina Paz MD Prior Authorization (compro) 08/12/2024 12:00 PM EDT Office Visit [address] [address] Regina Paz MD Autoimmune disorder (CMS/HCC) (Primary Dx); Abdominal migraine, not intractable; BMI 29.0-29.9,adult; Migraine without aura and without status migrainosus, not intractable; Other secondary hypertension 07/24/[address] [address] Regina Paz MD nausea, vomiting, request medication from Last 3 Months Immunizations Immunization Administration Dates Next Due Hep B, Adolescent [...] 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 on file Not [...] Description 12/11/2024 8:30 AM EDT Office Visit [facility] DENTAL [address] [place] [address] Darron Cedeño 01/12/2025 8:30 AM EDT Office Visit [facility] OPTOMETRY [address] [place] [address] Tessa Randall OD [address] [place] [address] 02/12/2025 8:00 AM EDT Office Visit [facility] MEDICAL [address] [place] [address] Regina Paz MD [address] [place] [address] Health Maintenance Due Date Last Done Comments [...] 06/06/2024, 0 12/04/2023, 05/22/2023, Additional history exists Dental X-Ray: Full Mouth 06/02/2025 06/01/2022, 03/0 12/2015 Dental X-Ray: Bitewings 06/07/2025 06/06/19, 05/22/2023, 06/01/2022, [...] patient's age to complete this topic Meningococcal B Vaccine Aged Out No l onger eligible based on patient's age to complete [...] Procedure Name Priority Date/Time Associated Diagnosis Comments LIPID PANEL, STANDARD Routine 06/10/2024 7:55 AM EST Full PROPHYLAXIS - ADULT Routine 06/06/2024 9:20 AM EST BITEWINGS - 4 RADIOGRAPHIC IMAGES Routine 06/06/2024 9:20 AM EST PERIODIC ORAL EVALUATION - ESTABLISHED PATIENT Routine 06/06/2024 9:20 AM EST BI MAMMOGRAM SCREENING BILATERAL Routine 02/29/2024 3:34 PM EDT INTRAORAL - COMPLETE SERIES OF RADIOGRAPHIC IMAGES Routine 06/01/2022 10:00 AM EST Encounter for dental examination HM PAP/HPV Routine 07/16/2020 from Last 3 Months or Most Recently Relevant to Health Maintenance Results * Lipid Panel, Standard (06/10/2024 7:55 AM EST) Blood Venous blood specimen / Unknown Historical Provider LAB BLOOD ORDERABLES Laly l Result * BI Mammogram Screening Bilateral (02/29/2024 3:34 PM EDT) Anatomical Region Laterality Modality Breast Bilateral Mammography Regina Paz MD IMG BI PROCEDURES Final Result * Pap Smear (07/16/2020) Pap smear NEGATIVE Historical Provider HEALTH MAINTENANCE Final Result from Last 3 Months or Most Recently Relevant to Health Maintenance Insurance [facility] , [address] [place] [id number] [facility] Care Teams Pumping Station Supervisor Relationship Specialty Start Date End Date Regina Paz MD 73 [facility] [place] [address] PCP - General Internal Medicine 06/09/22
--- OUTSIDE RECORDS SUMMARY | 2024-10-08 08:06 | XMS_ITS | Encounter Summary ---
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 file Not on file documented as of this encounter Plan of Treatment Upcoming Encounters Date Type Department Care Team (Late st Contact Info) Description 12/11/2024 8:30 AM EDT Office Visit [facility] DENTAL [address] [place] [address] Darron Cedeño 01/12/2025 8:30 AM EDT Office Visit [facility] OPTOMETRY [address] [place] [address] Tessa Randall OD [address] [place] [address] 02/12/2025 8:00 AM EDT Office Visit [facility] MEDICAL [address] [place] [address] Regina Paz MD [address] [place] [address] documented as of this encounter Procedures Procedure [...] documented as of this encounter Care Teams Endoscopy Tech Relationship Specialty Start Date End Date Regina Paz MD [address] [place] [address] PCP - General Internal Medicine 06/09/22 documented as of this encounter
--- OUTSIDE RECORDS SUMMARY | 2024-10-08 08:06 | XMS_ITS | Encounter Summary ---
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 DENTAL [address] [place] [address] Darron Cedeño 01/12/2025 8:30 AM EDT Office Visit [facility] OPTOMETRY [address] [place] [address] Tessa Randall OD [address] [place] [address] 02/12/2025 8:00 AM EDT Office Visit [facility] MEDICAL [address] [place] [address] Regina Paz MD [address] [place] [address] documented as of this encounter Procedures Procedure [...] documented as of this encounter Care Teams Receiving Tank Operator Relationship Specialty Start Date End Date Regina Paz MD [address] [place] [address] PCP - General Internal Medicine 06/09/22 documented as of this encounter
--- OUTSIDE RECORDS SUMMARY | 2024-10-08 08:06 | XMS_ITS | Encounter Summary ---
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 Not on file documented as of this encounter Plan of Treatment Upcoming Encounters Date Type Department Care Team (Late st Contact Info) Description 12/11/2024 8:30 AM EDT Office Visit [facility] DENTAL [address] [place] [address] Darron Cedeño 01/12/2025 8:30 AM EDT Office Visit [facility] OPTOMETRY [address] [place] [address] Tessa Randall OD [address] [place] [address] 02/12/2025 8:00 AM EDT Office Visit [facility] MEDICAL [address] [place] [address] Regina Paz MD [address] [place] [address] documented as of this encounter Procedures Procedure [...] documented as of this encounter Care Teams Plate Stacker Relationship Specialty Start Date End Date Regina Paz MD [address] [place] [address] PCP - General Internal Medicine 06/09/22 documented as of this encounter
--- OUTSIDE RECORDS SUMMARY | 2024-10-08 08:06 | XMS_ITS | Clinical Summary ---
Author Organization [facility] Address [address] [place] [address] Care Team Providers Care Armature Balancer Name Role Phone Regina Paz Primary Care Provider [phone] Allergies Active Allergy Reactions Criticality Noted Date [...] or Pediatric/Adolescent Dosage 01/15/1993,12/20/1991,07/20/1991 Influenza, Injectable, Madin Rhine Canine Kidney, Preservative Free, Quadrivalent 03/16/2023 Influenza, [...] Screening Completed 05/15/2023 Procedures * Due to [place] [employer] law, this organization might not be sharing negative HIV tests. Procedure Name Priority Date/Time Associated Diagnosis Comments HEPATITIS C ANTIBODY W/REFLEX TO HCV RNA, QUANTITATIVE PCR Routine 05/15/2023 10:55 AM EST Pericarditis, unspecified chronicity, unspecified type from Last 3 Months or Most Recently Relevant to Health Maintenance Results * Due to [place] [employer] law, this organization might not be sharing negative HIV tests. * Hepatitis C Antibody w/Reflex to HCV RNA, Quantitative PCR (05/15/2023 10:55 AM EST) Hepatitis C Antibody NON-REACT LIOR NON-REACT LIOR 05/15/2023 10:28 PM EST [facility] Comment: HCV antibody was non-reactive. There is no laboratory evidence of HCV infection. In most cases, no further action is required. However, if recent HCV exposure is suspected, a test for HCV RNA (test code 41151) is suggested. For additional information please refer to http://education.MedCenterDisplay/faq/LYS46u9 (This link is being provided for informational/ educational purposes only.) Blood Structure of peripheral vein / Unknown Venipuncture / Unknown 05/15/2023 10:55 AM EST 05/15/2023 11:27 AM EST [facility] 05/15/2023 10:28 PM EST [facility] Received Date: us Violeta Quintana MD LAB BLOOD ORDERABLES Final Re sult [facility] [address] 3rd Floor, [place] [address], [place] [phone] [facility] [address] [facility] [address] Floor, [place] [address], [place] [phone] from Last 3 Months or Most Recently Relevant to Health Maintenance Insurance [facility] Care Teams Armature Balancer Relationship Specialty Start Date End Date Regina Paz [address] [place] [address] PCP - General Pediatrics 12/21/22
--- OUTSIDE RECORDS SUMMARY | 2024-10-08 08:06 | XMS_ITS | Encounter Summary ---
Author Organization [employer] Address [address] [place] [address] 7 [address] [place] [address] Care Team Providers Care Pediatric Hospitalist Name Role Phone Regina Paz MD Primary Care Provider [phone] Encounter Details Date Type Department Care Team [...] [facility] DENTAL [address] [place] [address] Darron Cedeño 01/12/2025 8:30 AM EDT Office Visit [facility] OPTOMETRY [address] [place] [address] Tessa Randall OD [address] [place] [address] 02/12/2025 8:00 AM EDT Office Visit [facility] MEDICAL [address] [place] [address] Regina Paz MD [address] [place] [address] documented as of this encounter Visit Diagnoses Not on filedocumented in this encounter Care Teams Pediatric Hospitalist Relationship Specialty Start Date End Date Regina Paz MD [address] [place] [address] PCP - General Internal Medicine 06/09/22 documented as of this encounter
--- OUTSIDE RECORDS SUMMARY | 2024-10-08 08:06 | XMS_ITS | Encounter Summary ---
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 Pt says she was referred for a brief organic assessment and review of records to Ty Stinson, a PhD psychologist at [address] [place] [address]. She saw this provider on August 26 and from what she describes it sounds like they did a mini mental status exam and possibly other cognitive assessments. We do not have the results of these assessments in her chart. Pt left a message with the provider's office last week and will try them again. She will also see if she can contact her tower control operator who is helping her with her disability claim. Sending TE on to PCP for any input to insurance company regarding disability claim, then can close if nothing to add. * Telephone Encounter - Ananya Menard - 09/09/2024 12:42 PM EDT Patient called stating I'd like a copy of the social security letter printed so I can pick it up at the [facility] location, can someone call me so I know when to pick it up? Unable to locate letter in patient's chart. TE sent to nursing, please advise thank you! * Telephone Encounter - Venice Kyle - 09/09/2024 9:28 AM EDT [employer] called Patients disability review will be in 10 days. If there is any additional information that [facility] would want to add please call the following number [phone]. If you have no information to add please disregard this message. documented in this encounter Plan of Treatment Upcoming Encounters Date Type Department Care Team (Late st Contact Info) Description 12/11/2024 8:30 AM EDT Office Visit [facility] DENTAL [address] [place] [address] Darron Cedeño 01/12/2025 8:30 AM EDT Office Visit [facility] OPTOMETRY [address] [place] [address] Tessa Randall OD [address] [place] [address] 02/12/2025 8:00 AM EDT Office Visit [facility] MEDICAL [address] [place] [address] Regina Paz MD [address] [place] [address] documented as of this encounter Visit Diagnoses Not on filedocumented in this encounter Additional Health Concerns Assessment Noted Time PHQ-9 Depression Total Score: 12 024 9:05 AM EST documented as of this encounter Care Teams Marketing Database Analyst Relationship Specialty Start Date End Date Regina Paz MD [address] [place] [address] PCP - General Internal Medicine 1/13/23 documented as of this encounter
--- OUTSIDE RECORDS SUMMARY | 2024-10-08 08:06 | XMS_ITS | Encounter Summary ---
Author Organization [facility] Address [address] [place] [address] Care Team Providers Care Head Gauge Unit Operator Name Role Phone Regina Paz Primary Care Provider [phone] Reason for Visit * Reason Onset Date Comments PAC RX Refill 10/08/2023 Dr. Abad Borrego calling from [facility] as she needs clarification re: quantity of how many capsule should patient be taking daily. Encounter Details Date Type Department Care Team (Late st Contact Info) Description 10/08/2023 Telephone [facility] [address] [place] [address] Telephone Intake, Staff PAC RX Refill (Dr. Abad Borrego calling from [facility] as she needs clarification re: quantity of [...] EDT Dr. Melgoza patient. Salima calling from [facility] as she needs clarification re: quantity of how many capsule should patient be taking daily. Medication name: NALTREXONE 1.5 MG Salima tel #: [phone]. Thank you-PAC documented in this encounter Plan of Treatment Not on file documented as of this encounter Visit Diagnoses Not on filedocumented in this encounter Care Teams Head Gauge Unit Operator Relationship Specialty Start Date End Date Regina Paz [address] [place] [address] PCP - General Pediatrics 12/21/22 documented as of this encounter
--- OUTSIDE RECORDS SUMMARY | 2024-10-08 08:06 | XMS_ITS | Encounter Summary ---
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 on file Not on file documented as of this encounter Plan of Treatment Upcoming Encounters Date Type Department Care Team (Late st Contact Info) Description 12/11/2024 8:30 AM EDT Office Visit [facility] DENTAL [address] [place] [address] Darron Cedeño 01/12/2025 8:30 AM EDT Office Visit [facility] OPTOMETRY [address] [place] [address] Tessa Randall OD [address] [place] [address] 02/12/2025 8:00 AM EDT Office Visit [facility] MEDICAL [address] [place] [address] Regina Paz MD [address] [place] [address] documented as of this encounter Procedures Procedure [...] documented as of this encounter Care Teams University Teacher Relationship Specialty Start Date End Date Regina Paz MD [address] [place] [address] PCP - General Internal Medicine 06/09/22 documented as of this encounter
--- OUTSIDE RECORDS SUMMARY | 2024-10-08 08:06 | XMS_ITS | Encounter Summary ---
Author Organization 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 Not on file documented as of this encounter Plan of Treatment Upcoming Encounters Date Type Department Care Team (Late st Contact Info) Description 12/11/2024 8:30 AM EDT Office Visit [facility] DENTAL [address] [place] [address] Darron Cedeño 01/12/2025 8:30 AM EDT Office Visit [facility] OPTOMETRY [address] [place] [address] Tessa Randall OD [address] [place] [address] 02/12/2025 8:00 AM EDT Office Visit [facility] MEDICAL [address] [place] [address] Regina Paz MD [address] [place] [address] documented as of this encounter Procedures Procedure [...] Test - Misc (05/06/2024 7:32 AM EST) Result [facility] Provider MD LAB BLOOD ORDERABLES Laly l Result * FSH And LH (05/06/2024 7:27 AM EST) Result [facility] Provider MD LAB BLOOD ORDERABLES Laly l Result * Prolactin (05/06/2024 7:27 AM EST) Blood Venous blood specimen / Unknown Result [facility] Provider MD LAB BLOOD ORDERABLES Laly l Result * Other Reference Test - Misc (05/06/2024 7:27 AM EST) Result [facility] Provider MD LAB BLOOD ORDERABLES Laly l Result * DHEA Sulfate (05/06/2024 7:27 AM EST) Blood Venous blood specimen / Unknown Result [facility] Provider MD LAB BLOOD ORDERABLES Laly l Result documented in this encounter Visit Diagnoses Not on filedocumented in this encounter Additional Health Concerns Assessment Noted Time PHQ-9 Depression Total Score: 12 024 9:05 AM EST documented as of this encounter Care Teams Selling Manager Relationship Specialty Start Date End Date Regina Paz MD [address] [place] [address] PCP - General Internal Medicine 06/09/22 documented as of this encounter
--- OUTSIDE RECORDS SUMMARY | 2024-10-08 08:06 | XMS_ITS | Encounter Summary ---
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 on file Not on file documented as of this encounter Plan of Treatment Upcoming Encounters Date Type Department Care Team (Late st Contact Info) Description 12/11/2024 8:30 AM EDT Office Visit [facility] DENTAL [address] [place] [address] Darron Cedeño 01/12/2025 8:30 AM EDT Office Visit [facility] OPTOMETRY [address] [place] [address] Tessa Randall OD [address] [place] [address] 02/12/2025 8:00 AM EDT Office Visit [facility] MEDICAL [address] [place] [address] Regina aPz MD [address] [place] [address] documented as of this encounter Procedures Procedure [...] documented as of this encounter Care Teams Field Traffic Investigator Relationship Specialty Start Date End Date Regina Paz MD [address] [place] [address] PCP - General Internal Medicine 06/09/22 documented as of this encounter
--- OUTSIDE RECORDS SUMMARY | 2024-10-08 08:06 | XMS_ITS | Encounter Summary ---
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 Not on file documented as of this encounter Plan of Treatment Upcoming Encounters Date Type Department Care Team (Late st Contact Info) Description 12/11/2024 8:30 AM EDT Office Visit [facility] DENTAL [address] [place] [address] Darron Cedeño 01/12/2025 8:30 AM EDT Office Visit [facility] OPTOMETRY [address] [place] [address] Tessa Randall OD [address] [place] [address] 02/12/2025 8:00 AM EDT Office Visit [facility] MEDICAL [address] [place] [address] Regina Paz MD [address] [place] [address] documented as of this encounter Procedures Procedure [...] documented as of this encounter Care Teams External Relations Director Relationship Specialty Start Date End Date Regina Paz MD [address] [place] [address] PCP - General Internal Medicine 06/09/22 documented as of this encounter
--- OUTSIDE RECORDS SUMMARY | 2024-10-08 08:06 | XMS_ITS | Encounter Summary ---
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 Not on file documented as of this encounter Plan of Treatment Upcoming Encounters Date Type Department Care Team (Late st Contact Info) Description 12/11/2024 8:30 AM EDT Office Visit [facility] DENTAL [address] [place] [address] Darron Cedeño 01/12/2025 8:30 AM EDT Office Visit [facility] OPTOMETRY [address] [place] [address] Tessa Randall OD [address] [place] [address] 02/12/2025 8:00 AM EDT Office Visit [facility] MEDICAL [address] [place] [address] Regina Paz MD [address] [place] [address] documented as of this encounter Procedures Procedure [...] documented as of this encounter Care Teams Sack Sorter Relationship Specialty Start Date End Date Regina Paz MD [address] [place] [address] PCP - General Internal Medicine 06/09/22 documented as of this encounter
--- OUTSIDE RECORDS SUMMARY | 2024-10-08 08:06 | XMS_ITS | Encounter Summary ---
Author Organization [employer] Address [address] [place] [address] 7 [place] [address] Care Team Providers Care Piece Work Checker Name Role Phone Regina Paz MD Primary Care Provider [phone] Encounter Details Date Type Department Care Team [...] Description 12/11/2024 8:30 AM EDT Office Visit [facility] DENTAL [address] [place] [address] Darron Cedeño 01/12/2025 8:30 AM EDT Office Visit [facility] OPTOMETRY [address] [place] [address] Tessa Randall OD [address] [place] [address] 02/12/2025 8:00 AM EDT Office Visit [facility] MEDICAL [address] [place] [address] Regina Paz MD [address] [place] [address] documented as of this encounter Visit Diagnoses Not on filedocumented in this encounter Care Teams Piece Work Checker Relationship Specialty Start Date End Date Regina Paz MD [address] [place] [address] PCP - General Internal Medicine 06/09/22 documented as of this encounter
--- OUTSIDE RECORDS SUMMARY | 2024-10-08 08:07 | XMS_ITS | Clinical Summary ---
Author Organization [facility] Address [address] [place] [address] Care Team Providers Care Printed Forms Proofreader Name Role Phone Regina Paz MD Primary Care Provider [phone] Social History Tobacco Use Types Packs/Day Years [...] age to complete this topic Care Teams Printed Forms Proofreader Relationship Specialty Start Date End Date Regina Paz MD [address] [place] [address] PCP - General Internal Medicine 09/02/20
--- OUTSIDE RECORDS SUMMARY | 2024-10-08 08:07 | XMS_ITS | Encounter Summary ---
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 Not on file documented as of this encounter Plan of Treatment Upcoming Encounters Date Type Department Care Team (Late st Contact Info) Description 12/11/2024 8:30 AM EDT Office Visit [facility] DENTAL [address] [place] [address] Darron Cedeño 01/12/2025 8:30 AM EDT Office Visit [facility] OPTOMETRY [address] [place] [address] Tessa Randall OD [address] [place] [address] 02/12/2025 8:00 AM EDT Office Visit [facility] MEDICAL [address] [place] [address] Regina Paz MD [address] [place] [address] documented as of this encounter Procedures Procedure [...] Modality Computed Tomogra phy Regina Paz MD [facility] CT PROCEDURES Final Result * CT Abdomen [...] documented as of this encounter Care Teams Ore Digger Relationship Specialty Start Date End Date Regina Paz MD [address] [place] [address] PCP - General Internal Medicine 06/09/22 documented as of this encounter
--- OUTSIDE RECORDS SUMMARY | 2024-10-08 08:07 | XMS_ITS | Encounter Summary ---
Author Organization [employer] Address [address] 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 Not on file documented as of this encounter Plan of Treatment Upcoming Encounters Date Type Department Care Team (Late st Contact Info) Description 12/11/2024 8:30 AM EDT Office Visit [facility] DENTAL [address] [place] [address] Darron Cedeño 01/12/2025 8:30 AM EDT Office Visit [facility] OPTOMETRY [address] [place] [address] Tessa Randall OD [address] [place] [address] 02/12/2025 8:00 AM EDT Office Visit [facility] MEDICAL [address] [place] [address] Regina Paz MD [address] [place] [address] documented as of this encounter Procedures Procedure [...] documented as of this encounter Care Teams Sociology Instructor Relationship Specialty Start Date End Date Regina Paz MD [address] [place] [address] PCP - General Internal Medicine 06/09/22 documented as of this encounter
--- NOTE | 2024-10-08 08:12 | MHC.OFFVIS ---
Vital Signs 10/08/24 08:16 Height 5 ft 2 in Weight 156 lb BMI 28.5 BP 134/92 H Blood Pressure Location Rt brachial Position Sitting Respiration 16 Pulse 87 Pulse Source Pulse Oximeter Pulse Oximetry (%) 98 Oxygen Delivery Method Room Air Intake Visit Reasons: idiopathic pericarditis Intake Note: Patient presents for Idiopathic Pericarditis. Allergies pollen extracts Allergy (Intermediate, Verified 10/08/24 08:15) Runny Nose atorvastatin Allergy (Mild, Verified 10/08/24 08:15) muscle pain blue dye Allergy (Mild, Verified 10/08/24 08:15) Unknown iodine Allergy (Mild, Verified 10/08/24 08:15) Itching red dye Allergy (Mild, Verified 10/08/24 08:15) Unknown tree and shrub pollen Allergy (Mild, Verified 10/08/24 08:15) Nasal congestion erythromycin base Allergy (Verified 10/08/24 08:15) Nausea and Vomiting azathioprine Adverse Reaction (Severe, Verified 10/08/24 08:15) vomiting and diarrhea stevioside [From Stevia] Adverse Reaction (Verified 10/08/24 08:15) Abdominal Pain green dye Allergy (Severe, Uncoded 06/19/24 08:54) Headache molds and smuts Allergy (Severe, Uncoded 06/19/24 08:54) hadache Medication List - Last Reconciled 10/08/24 by Zulema Ramirez MD acyclovir 400 mg PO BID cyclobenzaprine 10 mg PO BID cyclosporine 0.05% (Restasis) 1 drp ophthalmic (eye) Q12H dicyclomine 20 mg PO BID PRN hydroxychloroquine 200 mg PO DAILY Kineret (anakinra) 100 mg (0.67 mL) subcut DAILY 30 days NS lorazepam 0.5 mg PO DAILY PRN metoclopramide HCl 10 mg PO TID metoprolol succinate ER 100 mg PO DAILY omeprazole 40 mg PO DAILY 90 days ondansetron HCl 8 mg PO DAILY 15 days rosuvastatin 10 mg PO BEDTIME sucralfate 10 mL PO QIDACHS sumatriptan 20 mg/actuation 20 mg intranasal Q2H PRN triamcinolone acetonide (Nasacort Allergy) 1 spray intranasal DAILY verapamil ER 120 mg PO DAILY HPI Comments Details: Patient is a 58-year-old female with history of migraines, hyperlipidemia, multinodular thyroid and recurrent idiopathic pericarditis here today for follow up Interval History: Patient last seen 07/03/24 with me. At that time she was on Anakinra 100mg SC daily and plaquenil. No recurrence of symptoms and doing well. Since then, Patient continues to inject herself daily with anakinra and is overall doing well Had her sonobello procedure and it went well overall Currently healing Continues to be asymptomatic Current complaint is her brain fog. Had a cognitive test, which she is waiting on the results Rheumatologic History: Initial history: This is a 58 year old female previously diagnosed with lupus by Dr. Sorto who presents for follow-up. Over the last year patient presented to the hospital multiple times for pericarditis. She has been on multiple doses of prednisone. Last dose of prednisone was October 06. Patient does not want to go back to taking prednisone due to significant weight gain. She has lost some weight since she stopped the prednisone. She stated that colchicine was started by her change management facilitator at [facility] with some improvement. She stated that hydroxychloroquine has generally helped her. When she was off of it she felt much worse with worsening fatigue and body aches. Her main complaint today is her chest discomfort, shortness of breath, chest pain especially when taking a deep breath and lying on her back. She sleeps sitting down. She has noted mildly erythematous rash on her extremities and torso. She has mildly cool fingers and toes but never developed any digital ulcers. She denies any fevers. She was evaluated by service or work dispatcher due to recurrent diarrhea and GI symptoms. She was told that she has bowel inflammation and there is some suspicion of IBD. Her pericarditis symptoms and bowel symptoms improve when she is on prednisone. She had a lip biopsy twice and it was negative for Sjogren's. Current Rheumatology Medication(s): Plaquenil 200mg daily Anakinra 100mg SC daily [facility] Medical History (Updated 07/03/24 @ 08:43 by Zulema Ramirez MD) Hx of gastritis Pain of multiple sites Pneumonitis Pericardial effusion Acute pericardial effusion Low serum cortisol level Fatigue Pulmonary nodule SVT (supraventricular tachycardia) Dyspnea Esophageal candidiasis Ileitis Abdominal pain Inflammation of small intestine History of anesthesia complications Hx of chest pain Fusion of spine, cervical region TMJ syndrome Cervical radiculopathy Elevated cholesterol Osteoarthritis Hx of migraine headaches Multinodular thyroid Surgical History Hx of shoulder surgery S/P thyroid biopsy H/O colonoscopy History of esophagogastroduodenoscopy (EGD) History of spinal fusion Hx of dilation and curettage Hx of cholecystectomy Hx of tonsillectomy Hx of tubal ligation Family History Mother Diabetes Uterine cancer Hypertension Father Diabetes Hypertension Stroke Family/Other Colon cancer Social History Household Members: Spouse Housing: House Are you a primary hourly caregiver to a significant other at home: No Do you presently have visiting nurse or other home services: No Alcohol intake: never Patient Tobacco Use Status: Former Tobacco user Tobacco use type: Cigarette Cigarettes Per Day: 10 Years Smoked: 5 Substance Use Type: Marijuana service: No Current occupational status: employed Current occupation: right hand dominant Review of Systems Const Details: Review of Systems Constitutional: Denies fever, chills, weight loss ENT: Denies vision changes, eye pain or eye redness, dental caries, dry mouth GI: Denies nausea, vomiting, diarrhea, abdominal pain, change in BM Pulm: Denies SOB, BUSTILLOS, hemoptysis, wheezing Cards: Denies chest pain, palpitations Skin: Denies Raynaud's, rash, nail changes, photosensitivity, RIP MACHINE OPERATOR: Denies headaches, weakness, paresthesias, recurrent falls MSK: as per HPI All other systems reviewed and are unremarkable except noted above Physical Exam Vital Signs: Last Vital Signs Pulse 87 10/08/24 08:16 Resp 16 10/08/24 08:16 BP 134/92 H 10/08/24 08:16 Pulse Ox 98 10/08/24 08:16 Oxygen Delivery Method Room Air 10/08/24 08:16 BMI result Body Mass Index 28.5 Vital signs reviewed Physical Examination CONSTITUITIONAL Patient alert and cooperative. Well appearing and in no apparent painful distress HEENT Conjunctiva and sclera clear. ?Pupils equal round and reactive to light. ?No lymphadenopathy. ? CHEST/RESPIRATORY SYSTEM Normal respiratory effort and able to speak in complete sentences. ?Clear to auscultation bilaterally. ?No crackles, rales, rhonchi, wheezes heard. CARDIAC SYSTEM Regular rate and rhythm. ?S1 and S2 heard no murmurs. ?Radial pulses intact bilaterally MSK Hands: ?Good gps navigation installer strength bilaterally. No deformities noted. ?No synovitis noted to the MCPs, PIPs or DIPs. ?No tenderness to palpation of these joints. Wrists: ?Full range of motion at the wrists without pain. ?No tenderness to palpation or synovitis noted to the wrists. Elbows: Full range of motion without pain. No tenderness, weakness, swelling, increased warmth or erythema. Shoulders: Full range of motion without pain. No tenderness, weakness, swelling, increased warmth or erythema. Hips: Full range of motion without pain. Hip bursa: No tenderness to palpation Knees: ?Full range of motion. ?No tenderness, swelling, increased warmth or erythema.? Bilateral crepitations felt Ankles: Full range of motion. ?No tenderness, swelling, increased warmth or erythema.? Feet: ?Negative squeeze test. ?No tenderness to palpation or swelling of the MTPs. Tender points:?No tenderness to palpation of the bilateral trapezius, supraspinatus, greater trochanters, anterior costochondral junctions, bilateral gluteal areas, bilateral suboccipital muscle insertions SKIN Skin intact without rashes. Results Reviewed Results Reviewed: Laboratory Tests 09/04/24 10:19 WBC 6.2 RBC 4.54 Hgb 14.1 Hct 40.6 Plt Count 233 ESR 2 Sodium 143 Potassium 3.9 Chloride 109 H Carbon Dioxide 25 BUN 15 Creatinine 0.80 AST 31 ALT 22 Alkaline Phosphatase 75 C-Reactive Protein < 0.10 Infectious serologies 09/04/24 10:19 Hepatitis A IgM Ab Nonreactive Hep Bs Antigen Negative Hep Bs Antibody REACTIVE Hep B Core Total Ab Nonreactive Hepatitis C Ab (EIA) Nonreactive TB Test (T-Spot) Com Negative Immunology Labs 12/26/22 08/12/23 11/13/23 11:46 06:30 16:05 BRAYDON Screen POSITIVE A BRAYDON Titer 1:640 H BRAYDON Titer 2 1:320 H KAREN-1 Antibody <11 EJ Antibody <11 OJ Antibody <11 Mi-2-Alpha Ab <11 Mi-2-Beta Ab <11 NXP-2 Ab <11 PL-7 Antibody <11 PL-12 Antibody <11 SRP Ab <11 MDA5 Ab <11 Myos P155/140 TIF1-g Ab <11 SS-A/Ro Antibody <1.0 NEG SS-B/La Antibody <1.0 NEG Sm (Moser) Antibody <1.0 NEG U1 snRNA A Antibody <11 U1 snRNA C Antibody <11 U1 snRNA 70kD Antibody <11 SM/SENIOR MATERIALS ANALYST IgG Antibody <1.0 NEG Scl-70 Scleroderma Ab <1.0 NEG <11 A-PM Scleroderma 75 Ab <11 A-PM Scleroderma 100 Ab <11 Double Strand DNA Ab <1 Anti-ds DNA (Crithidia) Negative RNA Polymerase III RP11 Ab <11 RNA Polymerase III RP155 Ab <11 Centromere B Antibody <11 Centromere Protein A Ab <11 HMGCR IgG Antibody <2 NT5C1A IgG Antibody <5 Beta-2-GPI IgG Ab <2.0 Beta-2-GPI IgA Ab <2.0 Beta-2-GPI IgM Ab 2.2 Anti-Cardiolipin IgG Ab <2.0 Anti-Cardiolipin IgM Ab <2.0 Complement C3 181 Complement C4 41 ECHO 06/20/24 Findings Left Ventricle Normal left ventricular size, thickness, and systolic function. The visually estimated ejection fraction is between 55-60%. Spectral Doppler is indicative of a normal filling pattern. Right Ventricle Normal right ventricular cavity size and systolic function. Atria Both atria are normal in size. There is no evidence of interatrial shunt. Aortic Valve Normal aortic valve structure and function. There is no aortic valve stenosis. There is no aortic valve regurgitation. Mitral Valve Likely normal mitral valve structure and function. There is trace mitral valve regurgitation. There is no mitral valve stenosis. Pulmonic Valve The pulmonic valve was not well visualized. Tricuspid Valve Likely normal tricuspid valve structure and function. There is trace tricuspid valve regurgitation. The right ventricular systolic pressure is normal. The right ventricular systolic pressure is 18 mmHg. Normal right atrial pressure. There is no evidence of pulmonary hypertension. Venous The inferior vena cava is normal in size and collapses greater than 50% with inspiration. Pericardium/Pleural There is no evidence of pericardial effusion. Prior Study Comparison Changes noted compared to prior study dated: 08/13/2023. no pericardial effusion noted Assessment & Plan Assessment & Plan (1) Pericarditis associated with systemic lupus erythematosus: Comment: Chest pain and pericardial fluid, August 2022. Recurrence March 2023, July 2023 Hydroxychloroquine minimal effective Colchicine minimally effective - stopped 04/2024 Azathioprine not tolerated kineret 11/2023 effective Code(s): I31.9 - Disease of pericardium, unspecified; M32.12 - Pericarditis in systemic lupus erythematosus Category: Medical Qualifiers: Chronicity: chronic Chronic pericarditis complication: unspecified complication status Qualified Code(s): M32.12 - Pericarditis in systemic lupus erythematosus Plan: #Idiopathic Pericarditis Patient is a 58-year-old female with recurrent pericarditis in the setting of a positive BRAYDON without any other signs or symptoms concerning for lupus. Her last admission to the hospital was in September 2023. Started on anakinra 11/2023 and since then has been stable. Doing well on the anakinra no intolerable side effects Plan - Anakinra 100mg SC daily - Plaquenil 200mg daily - ECHO 05/2025 - RTC 6 months - Labs before visit: CBC, CMP, ESR, CRP (2) Long-term use of immunosuppressant medication: Code(s): Z79.60 - intermediate teacher (current) use of unspecified immunomodulators and immunosuppressants Category: Medical Plan: #intermediate teacher current use of Anakinra (Kineret) Risks and benefits of anakinra in the management of patient's rheumatic disease is discussed Benefits include reduced flares and improved disease control Wrists include upset stomach, dry mouth, drowsiness, Wheeler Elan syndrome, hallucinations and increased risk of infections and malignancy Monitoring every 3 months with CBC, CMP, ESR, CRP. Every 6 months-1 year hepatitis panel and T spot (3) Encounter for monitoring of hydroxychloroquine therapy: Code(s): Z51.81 - Encounter for therapeutic drug level monitoring; Z79.899 - Other director long term care (current) drug therapy Plan: #Long-term Use of Hydroxychloroquine Discussed with patient the risks and benefits of hydroxychloroquine in managing the rheumatic condition Benefits include: - Reduced pain, reduce mortality, maintenance of remission and reduction of flares Risks include: - GI upset, skin hyperpigmentation, retinal toxicity (especially after more than 5 years of use), myopathy Advised yearly ophthalmology visits Plan I spent 30 minutes reviewing the record and labs, taking a history, examining the patient, discussing the treatment plan and documenting in the medical record Coding Level of Care Code Est Pt Level 4 (69977) Complex EM visit Add On G2211 Diagnoses Chronic pericarditis associated with systemic lupus erythematosus (SLE), unspecified complication status M32.12 Chronicity: chronic Chronic pericarditis complication: unspecified complication status Long-term use of immunosuppressant medication Z79.60 Encounter for monitoring of hydroxychloroquine therapy Z51.81; Z79.899
[2024-10-08 08:16] VITALS: BP 134/92; PULSE 87; RESP 16; O2SAT 98; BMI 28.5
== END 2024-10-08 08:48 | disposition home or self-care (01) ==
LOC: HO.RHE 08:03
PROVIDERS: PCP Internal Medicine; Visit Provider Student in an Organized Health Care Education/Training Program
DX: M32.12 Pericarditis in systemic lupus erythematosus (principal); Z79.60 Long term (current) use of unspecified immunomodulators and immunosuppressants; Z51.81 Encounter for therapeutic drug level monitoring; Z79.899 Other long term (current) drug therapy
CPT/HCPCS: 99214

== ENCOUNTER → 2024-10-08 08:02 | Outpatient (BNVA) | payer OTHER, SELFPAY | PROVIDERS: PCP Internal Medicine; Visit Provider Student in an Organized Health Care Education/Training Program ==

== ENCOUNTER 2024-12-09 08:54 | Outpatient (REF) | payer OTHER, SELFPAY | END 2024-12-09 08:55 | disposition home or self-care (01) | LOC: HO.LAB 08:54 | PROVIDERS: PCP Internal Medicine; Referring Provider Student in an Organized Health Care Education/Training Program; Visit Provider Nurse Practitioner | DX: Z13.89 Encounter for screening for other disorder (principal) ==

== ENCOUNTER 2024-12-09 08:54 | Outpatient (AMB) | payer OTHER, SELFPAY ==
--- OUTSIDE RECORDS SUMMARY | 2024-12-09 09:08 | XMS_ITS | Encounter Summary ---
Author Organization [employer] Address [address] [place] [address] [address] [place] [address] Care Team Providers Care Rn School Name Role Phone Regina Paz MD Primary Care Provider [phone] Encounter Details Date Type Department Care Team [...] [facility] DENTAL [address] [place] [address] Darron Cedeño 12/22/2024 12:00 PM EDT Telemedicine [facility] MEDICAL [address] [place] [address] Regina Paz MD [address] [place] [address] 01/12/2025 8:30 AM EDT Office Visit [facility] OPTOMETRY [address] [place] [address] Tessa Randall OD [address] [place] [address] 02/19/2025 8:30 AM EDT Office Visit [facility] MEDICAL [address] [place] [address] Regina Paz MD [address] [place] [address] documented as of this encounter Visit Diagnoses Not on filedocumented in this encounter Care Teams Rn School Relationship Specialty Start Date End Date Regina Paz MD [address] [place] [address] PCP - General Internal Medicine 06/09/22 documented as of this encounter
--- OUTSIDE RECORDS SUMMARY | 2024-12-09 09:08 | XMS_ITS | Referral Summary ---
Author Organization [facility] Address [address] [place] [address] Care Team Prov[address] Care [address] Attendant Name Role Phone Regina Paz Primary Care Provider [phone] Allergies Active Allergy Reactions Criticality Noted Date [...] or Pediatric/Adolescent Dosage 01/15/1993,12/20/1991,07/20/1991 Influenza, Injectable, [place]in [place] Canine Kidney, Preservative Free, Quadrivalent 03/16/2023 Influenza, [...] 94 08/21/2023 9:07 AM EDT Temperature 36.6 C (97.8 F) 08/21/2023 9:07 AM EDT Respiratory Rate - - Oxygen Saturation - - Inhaled Oxygen Concentration - - Weight 70.8 kg (156 lb) 08/21/2023 9:07 AM EDT Height 160 cm (5' 3 ) 08/21/2023 9:07 AM EDT Body Mass Index 27.63 08/21/2023 9:07 AM EDT Plan of Treatment Not on file Procedures * Due to [place] [employer] law, this organization might not be sharing negative HIV tests. Procedure Name Priority Date/Time Associated Diagnosis Comments HEPATITIS C ANTIBODY W/REFLEX TO HCV RNA, QUANTITATIVE PCR Routine 05/15/2023 10:55 AM EST Pericarditis, unspecified chronicity, unspecified type from Last 3 Months or Most Recently Relevant to Health Maintenance Results * Due to [place] [employer] law, this organization might not be sharing negative HIV tests. * Hepatitis C Antibody w/Reflex to HCV RNA, Quantitative PCR (05/15/2023 10:55 AM EST) Hepatitis C Antibody NON-REACT LIOR NON-REACT LIOR 05/15/2023 10:28 PM EST [facility] Comment: HCV antibody was non-reactive. There is no laboratory evidence of HCV infection. In most cases, no further action is required. However, if recent HCV exposure is suspected, a test for HCV RNA (test code 55508) is suggested. For additional information please refer to http://education.[employer]/faq/HSW16l8 (This link is being provided for informational/ educational purposes only.) Blood Structure of peripheral vein / Unknown Venipuncture / Unknown 05/15/2023 10:55 AM EST 05/15/2023 11:27 AM EST Narrative [facility] - 05/15/2023 10:28 PM EST [facility] Received Date: us Violeta Quintana MD LAB BLOOD ORDERABLES Final Re sult [facility] [address], [place] [address], [place] [phone] [employer] [facility] [address], [place] [address], [place] [phone] from Last 3 Months or Most Recently Relevant to Health Maintenance Insurance [place] [id number] [facility] Care Teams Lane Attendant Relationship Specialty Start Date End Date Regina Paz [address] [place] [address] PCP - General Pediatrics 12/21/22
[2024-12-09 09:09] VITALS: BP 113/77; PULSE 76; RESP 18; BMI 28.3
--- NOTE | 2024-12-09 09:09 | A.OFFVIS_ITS ---
Vital Signs 3 12/09/24 09:09 Height 5 ft 2 in Weight 155 lb BMI 28.3 BP 113/77 Blood Pressure Location Lt brachial Position Sitting Respiration 18 Pulse 76 Pulse Source Pulse Oximeter Intake Visit Reasons: 6 months follow up Allergies pollen extracts Allergy (Intermediate, Verified 10/08/24 08:15) Runny Nose atorvastatin Allergy (Mild, Verified 10/08/24 08:15) muscle pain blue dye Allergy (Mild, Verified 10/08/24 08:15) Unknown iodine Allergy (Mild, Verified 10/08/24 08:15) Itching red dye Allergy (Mild, Verified 10/08/24 08:15) Unknown tree and shrub pollen Allergy (Mild, Verified 10/08/24 08:15) Nasal congestion erythromycin base Allergy (Verified 10/08/24 08:15) Nausea and Vomiting azathioprine Adverse Reaction (Severe, Verified 10/08/24 08:15) vomiting and diarrhea stevioside (From Stevia) Adverse Reaction (Verified 10/08/24 08:15) Abdominal Pain green dye Allergy (Severe, Uncoded 06/19/24 08:54) Headache molds and smuts Allergy (Severe, Uncoded 06/19/24 08:54) hadache HPI HPI 6 months follow up: Details: Assessment & Plan (1) Nausea: Code(s): R11.0 - Nausea Category: Medical (2) Small bowel motility disorder: Code(s): K59.9 - Functional intestinal disorder, unspecified Category: Medical (3) Hx of gastritis: Code(s): Z87.19 - Personal history of other diseases of the digestive system Category: Medical (4) Irritable bowel syndrome with both constipation and diarrhea: Code(s): K58.2 - Mixed irritable bowel syndrome Category: Medical (5) Systemic lupus erythematosus: Code(s): M32.9 - Systemic lupus erythematosus, unspecified Category: Medical Qualifiers: Systemic lupus erythematosus organ involvement: lung involvement S ystemic lupus erythematosus type: unspecified Qualified Code(s): M32.13 - Lung involvement in systemic lupus erythematosus (6) Esophageal spasm: Code(s): K22.4 - Dyskinesia of esophagus Category: Medical (7) Abdominal bloating: Code(s): R14.0 - Abdominal distension (gaseous) Category: Medical (8) Pericarditis associated with systemic lupus erythematosus: Comment: Chest pain and pericardial fluid, August 2022. Recurrence March 2023 Code(s): I31.9 - Disease of pericardium, unspecified; M32.12 - Pericarditis in systemic lupus erythematosus Category: Medical Plan In general they are beginning to find acceptable treatments for her autoimmune/inflammatory disorder. She is feeling better than she has felt in a long time but she still has some remaining challenges with her energy, her GI system and shortness of breath. She continued to have nausea, but was not taking reglan scheduled. She uses the bentyl mostly when she goes out as she has cramping but with her uneven peristalsis she at times struggles with BM's. She has a lot of cramping prior to a BM. She is trying to be active, but also struggle with dyspnea. She is seeing cardiology tomorrow. He sees Dr. Freed for respiratory and is clear from this standpoint but will be awaiting cardiac clearance. There are no prior problems with anesthesia or sedation. There are no infectious disease problems. Given her connective tissue and general inflammation I think a repeat EGD is prudent to make sure she does not have PUD with her hx of gastritis. ROV 6 mos and after EGD. Orders: Orders C Reactive Protein Today I31.9 - Disease of pericardium, unspecified, M32.12 - Pericarditis in systemic lupus erythematosus, M32.13 - Lung involvement in systemic lupus erythematosus EGD - GI Use Only Today R11.0 - Nausea, Z87.19 - Personal history of other diseases of the digestive system Medications: New dicyclomine 20 mg PO BID PRN 60 tabs 6RF SPASMS K58.2 - Mixed irritable bowel syndrome Refilled dicyclomine 20 mg PO BID PRN 180 tabs 1RF SPASMS K58.2 - Mixed irritable bowel syndrome metoclopramide HCl 10 mg PO TID 270 tabs 1RF K59.9 - Functional intestinal disorder, unspecified omeprazole 40 mg PO DAILY 30 caps 6RF omeprazole 40 mg PO DAILY 90 caps 1RF TODAYS VISIT SHe canceled the EGD as she did much better on carafate. 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 Apparently, her request for SSI disability is hung up because the system is not getting al of her medical information. She is trying to attend to getting all of the proper medical information forwarded. She continues to follow with rheumatology. She continues to struggle with CIC alt with diarrhea. She is off of prednisone and doing better on her current medications. ROV 6 mos. [facility] Medical History (Updated 12/09/24 @ 09:27 by HALEY Lara) Hx of gastritis Pain of multiple sites Pneumonitis Pericardial effusion Acute pericardial effusion Low serum cortisol level Fatigue Pulmonary nodule SVT (supraventricular tachycardia) Dyspnea Esophageal candidiasis Ileitis Abdominal pain Inflammation of small intestine History of anesthesia complications Hx of chest pain Fusion of spine, cervical region TMJ syndrome Cervical radiculopathy Elevated cholesterol Osteoarthritis Hx of migraine headaches Multinodular thyroid Surgical History Hx of shoulder surgery S/P thyroid biopsy H/O colonoscopy History of esophagogastroduodenoscopy (EGD) History of spinal fusion Hx of dilation and curettage Hx of cholecystectomy Hx of tonsillectomy Hx of tubal ligation Family History Mother Diabetes Uterine cancer Hypertension Father Diabetes Hypertension Stroke Family/Other Colon cancer Social History Household Members: Spouse Housing: House Are you a primary day care center director to a significant other at home: No Do you presently have visiting nurse or other home services: No Alcohol intake: never Patient Tobacco Use Status: Former Tobacco user Tobacco use type: Cigarette Cigarettes Per Day: 10 Years Smoked: 5 Substance Use Type: Marijuana service: No Current occupational status: employed Current occupation: right hand dominant Review of Systems Const Reports fatigue and Denies weakness ENT Reports Normal hearing present and Denies dizziness Card Denies chest pain, Denies chest pain with activity, Denies syncope, Reports rapid heart rate, Denies pedal edema, Denies edema, Denies leg edema, Denies lightheadedness, Denies palpitations, Reports dyspnea, Denies dyspnea on exertion and Denies orthopnea Resp Denies cough, Reports dyspnea and Denies dyspnea on exertion GI Reports abdominal pain, Reports bloating, Denies hematochezia, Denies change in stool character, Reports constipation, Reports diarrhea and Reports nausea Musc Denies abnormal gait, Denies muscle cramps, Reports muscle weakness, Denies numbness, Denies radiating pain into limb and Denies tingling Skin/Breast Reports alopecia and Reports rash Neuro Reports Normal hearing present, Denies Abnormal speech present, Denies abnormal gait, Denies dizziness, Denies syncope, Reports memory loss, Denies numbness, Denies tingling and Denies weakness Psych Reports memory loss Endo Reports fatigue and Denies palpitations Physical Exam Vital Signs: Last Vital Signs Pulse 76 12/09/24 09:09 Resp 18 12/09/24 09:09 BP 113/77 12/09/24 09:09 BMI result Body Mass Index 28.3 Const General: cooperative, no acute distress, well developed and well groomed Nutritional Appearance: average body habitus and well nourished Orientation/consciousness: oriented to person, oriented to place and oriented to time Limitations: No language barrier HEENT Head: Yes normocephalic and Yes atraumatic Eyes General: appearance normal, both eyes and all related structures Pupils: Equal, round and reactive pupils present Neck Neck: Yes normal visual inspection and Yes no lymphadenopathy Thyroid: Thyroid normal Resp Effort & Inspection: normal respiratory effort and able to speak in complete sentences Auscultation: clear to auscultation bilaterally Cardio Rate: regular rate Rhythm: regular rhythm Heart sounds: Normal, physiologic split S2 sound present Peripheral pulses: radial pulses present and posterior tibial pulses present GI Inspection: No distended and No Abdominal panniculus present Palpation (GI): Soft to palpation, nontender, no guarding, not rigid and No hepatosplenomegaly present Percussion: Yes normal to percussion Auscultation: normal bowel sounds Rectal Exam - Female: deferred Abdomen image: 2 1. surgical scars healing well. 2. Skin General skin exam: no rashes or lesions noted, turgor normal, skin not dry, no jaundice, No spider nevi and no striae Rashes: no rashes Nails: normal Neuro General: oriented to person, oriented to place and oriented to time Cranial nerves: Yes Equal, round and reactive pupils present and Yes Normal hearing present Speech: No Abnormal speech present Extrem General: Yes normal to inspection, No clubbing, No cyanosis and No edema Psych Appearance: grossly normal and well kempt Mental Status: mental status grossly normal Speech and movement: Normal speech and movement present Affect: normal affect Attitude: cooperative Thought process: Normal thought process present and not confabulating Thought content: Normal thought content present Insight: Good insight present (Psych) Judgement: Good judgement present (Psych) Assessment & Plan Assessment & Plan (1) Colitis: Comment: Lupus related as all other aspects ruled out Code(s): K52.9 - Noninfective gastroenteritis and colitis, unspecified Category: Medical (2) Irritable bowel syndrome with both constipation and diarrhea: Code(s): K58.2 - Mixed irritable bowel syndrome Category: Medical (3) Small bowel motility disorder: Code(s): K59.9 - Functional intestinal disorder, unspecified Category: Medical (4) Abdominal bloating: Code(s): R14.0 - Abdominal distension (gaseous) Category: Medical Plan SHe canceled the EGD as she did much better on carafate. 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 Apparently, her request for SSI disability is hung up because the system is not getting al of her medical information. She is trying to attend to getting all of the proper medical information forwarded. She continues to follow with rheumatology. She continues to struggle with CIC alt with diarrhea. She is off of prednisone and doing better on her current medications. ROV 6 mos. Medications: Refilled 2 dicyclomine 20 mg PO BID PRN 180 tabs 1RF SPASMS K58.2 - Mixed irritable bowel syndrome metoclopramide HCl 10 mg PO TID 270 tabs 1RF K59.9 - Functional intestinal disorder, unspecified omeprazole 40 mg PO DAILY 90 caps 3RF 90 days Coding Level of Care Code Est Pt Level 3 (28298) Diagnoses Colitis K52.9 Irritable bowel syndrome with both constipation and diarrhea K58.2 Small bowel motility disorder K59.9 Abdominal bloating R14.0
--- OUTSIDE RECORDS SUMMARY | 2024-12-09 09:09 | XMS_ITS | Clinical Summary ---
Author Organization [facility] Address [address] [id number] Care Team Providers Care Vice President Of News Name Role Phone Regina Paz MD Primary Care Provider [phone] Social History Tobacco Use Types Packs/Day Years [...] or Tdap) 10/28/2015 10/27/2005 Influenza Vaccine (#1) 2025 6, 03/04/2015, 05/08/2014, Additional history exists RSV [...] age to complete this topic Care Teams Vice President Of News Relationship Specialty Start Date End Date Regina Paz MD [address] [place] [address] PCP - General Internal Medicine 09/02/20
== END 2024-12-09 09:39 | disposition home or self-care (01) ==
LOC: HO.HGI 08:54
PROVIDERS: PCP Internal Medicine; Visit Provider Nurse Practitioner
DX: K58.2 Mixed irritable bowel syndrome (principal); K59.9 Functional intestinal disorder, unspecified; R14.0 Abdominal distension (gaseous)
CPT/HCPCS: 99213

== ENCOUNTER 2025-01-01 07:57 | Outpatient (REF) | payer OTHER, SELFPAY ==
--- OUTSIDE RECORDS SUMMARY | 2025-01-01 08:01 | XMS_ITS | Clinical Summary ---
Author Organization [facility] Address [address] [id number] Care Team Providers Care Technical Sales Representative Name Role Phone Regina Paz MD Primary Care Provider Social History Tobacco Use Types Packs/Day Years [...] age to complete this topic Care Teams Technical Sales Representative Relationship Specialty Start Date End Date Regina Paz MD [address] [place] [address] PCP - General Internal Medicine 09/02/20
--- OUTSIDE RECORDS SUMMARY | 2025-01-01 08:01 | XMS_ITS | Clinical Summary ---
Author Organization [facility] Address [address] [place] [id number] Phone Care Team Providers Care Learning Engineer Name Role Phone Regina Paz MD Primary Care Provider [phone] Allergies No known active allergies Medications rosuvastatin calcium (ROSUVASTATIN ORAL) Take 10 mg by mouth daily. Active ACYCLOVIR ORAL Take 400 mg by mouth 2 (two) times a day. Active MELATONIN ORAL Take 5 mg by mouth. Active cycloSPORINE (RESTASIS) 0.05 % suspension Place 1 drop into each eye 2 (two) times a day. Active Active Problems No known active problems Immunizations Immunization Administration Dates Next Due COVID-19 (Pre-03/19) Pfizer Vaccine, mRNA, PF ,05/13/2020 Family History Medical History Relation Comments Ovarian cancer Mother Relation Status Comments Mother Social History Tobacco Use Types Packs/Day Years [...] Orientation Straight 12/27/2020 8: 05 AM EDT Last Filed Vital Signs Vital Sign Reading Time Taken Comments Blood Pressure 142/91 11/05/2023 4:43 PM EDT Pulse 98 11/05/2023 4:43 PM EDT Temperature 36.7 C (98 F) 11/05/2023 4:43 PM EDT Respiratory Rate 16 11/05/2023 4:43 PM EDT Oxygen Saturation 97% 11/05/2023 4:43 PM EDT Inhaled Oxygen Concentration - - Weight 72.1 kg (159 lb) 11/05/2023 10:28 AM EDT Height 157.5 cm (5' 2 ) 11/05/2023 10:28 AM EDT Body Mass Index 29.08 11/05/2023 10:28 AM EDT Plan of Treatment Health Maintenance Due Date Last Done Comments DEPRESSION SCREENING 1975 SMOKING Hx and SMOKELESS TOBACCO SCREENING 09/14/1976 HIV ONE-TIME SCREENING (18-6 5 YEARS) 09/14/1981 PAP SMEAR 09/14/1984 SCREENING FOR DIABETES 09/14/1998 COLOGUARD 09/14/2008 COLONOSCOPY 09/14/2008 COLORECTAL CANCER SCREENING 09/14/2008 FIT TEST 09/14/2008 FOBT 09/14/2008 SIGMOIDOSCOPY 09/14/2008 VIRTUAL COLONOSCOPY 09/14/2008 PNEUMOCOCCAL VACCINES (50+ years) (1 of 1 - PCV) 09/14/2013 ZOSTER VACCINES (1 of 2) 09/14/2013 MAMMOGRAM 09/13/2019 09/12/2017, 09/12/2017 COVID-19 VACCINE (3 - 2023-2 5 season) 2024 06/03/2020, 05/13/2020 Adult Td,Tdap Booster 04/16/2028 04/16/2018 , 11/15/2010, 10/27/2005 LIPID PANEL 08/06/2028 08/07/2023 RSV VACCINE (1 - 1-dose 75+ series) 09/14/2038 HEPATITIS C SCREENING Completed 05/15/2023 HEPATITIS A VACCINES Aged Out No long er eligible based on patient's age to complete this topic HIB VACCINES Aged Out No longer eligi ble based on patient's age to complete this topic MENINGOCOCCAL VACCINES (ACWY) Aged Out No longer eligible based on patient's age to complete this topic MENINGOCOCCAL VACCINES (B) Aged Out N o longer eligible based on patient's age to complete this topic Medical Devices Not on file Procedures Procedure Name Priority Date/Time Associated Diagnosis Comments BI MAMMOGRAM SCREENING WITH TOMOSYNTHESIS WITH CAD (BILATERAL) Routine 09/12/2017 8:01 AM EDT Breast screening from Last 3 Months or Most Recently Relevant to Health Maintenance Results * BI MAMMOGRAM SCREENING WITH TOMOSYNTHESIS WITH CAD (BILATERAL) (09/12/2017 8:01 AM EDT) Anatomical Region Laterality Modality Breast Left, Breast Right, Breast Bilateral Bila teral Mammography 09/12/2017 8:58 AM EDT Impressions 09/12/2017 9:04 AM EDT No mammographic signs of malignancy. Annual screening is recommended. BI-RADS CATEGORY: 1 - Negative. DENSITY: There are scattered fibroglandular densities. POS - CDHMAM2 Narrative 09/12/2017 9:04 AM EDT Bilateral mammography is performed in conjunction with computed aided detection. 3-D tomography along with 2-D C view imaging was also performed. Comparison made to previous dated as far back as 11/21/2010 and as recent as 08/28/2016. No suspicious masses, areas of architectural distortion or suspicious microcalcifications. Procedure Note Fareed Hill MD - 09/12/2017 Bilateral mammography is performed in conjunction with computed aideddetection. 3-D tomography along with 2-D C view imaging was alsoperformed. Comparison made to previous dated as far back as 11/21/2010 andas recent as 08/28/2016. No suspicious masses, areas of architectural distortion or suspiciousmicrocalcifications. IMPRESSION: No mammographic signs of malignancy. Annual screening is recommended. BI-RADS CATEGORY: 1 - Negative. DENSITY: There are scattered fibroglandular densities. POS - CDHMAM2 Cheryl Day MD IMG MG EXAMS Final Result from Last 3 Months or Most Recently Relevant to Health Maintenance Insurance Care Teams Learning Engineer Relationship Specialty Start Date End Date Regina Paz MD [address] [place] [address] [email or web address] PCP - General Internal Medicine 12/27/20 Additional Source Comments The information contained in this document represents components of the legal health record. It is not the complete legal health record.[facility]
--- OUTSIDE RECORDS SUMMARY | 2025-01-01 08:01 | XMS_ITS | Referral Summary ---
Author Organization [facility] Address [address] [place] [address] Care Team Providers Care Bread Supervisor Name Role Phone Regina Paz Primary Care Provider [phone] Allergies Active Allergy Reactions Criticality Noted Date [...] or Pediatric/Adolescent Dosage 01/15/1993,12/20/1991,07/20/1991 Influenza, Injectable, Madin [place] Canine Kidney, Preservative Free, Quadrivalent 03/16/2023 Influenza, [...] Not on file Procedures * Due to [place] [employer] law, this organization might not be sharing negative HIV tests. Procedure Name Priority Date/Time Associated Diagnosis Comments HEPATITIS C ANTIBODY W/REFLEX TO HCV RNA, QUANTITATIVE PCR Routine 05/15/2023 10:55 AM EST Pericarditis, unspecified chronicity, unspecified type from Last 3 Months or Most Recently Relevant to Health Maintenance Results * Due to [place] [employer] law, this organization might not be sharing negative HIV tests. * Hepatitis C Antibody w/Reflex to HCV RNA, Quantitative PCR (05/15/2023 10:55 AM EST) Hepatitis C Antibody NON-REACT LIOR NON-REACT LIOR 05/15/2023 10:28 PM EST [facility] Comment: HCV antibody was non-reactive. There is no laboratory evidence of HCV infection. In most cases, no further action is required. However, if recent HCV exposure is suspected, a test for HCV RNA (test code 36163) is suggested. For additional information please refer to http://education.Infantium/faq/ATC45y9 (This link is being provided for informational/ educational purposes only.) Blood Structure of peripheral vein / Unknown Venipuncture / Unknown 05/15/2023 10:55 AM EST 05/15/2023 11:27 AM EST Narrative [facility] - 05/15/2023 10:28 PM EST [facility] Received Date: us Violeta Quintana MD LAB BLOOD ORDERABLES Final Re sult [facility] [address], [place] [address], [place] [phone] [facility] [address], [place] [address], [place] [phone] from Last 3 Months or Most Recently Relevant to Health Maintenance Insurance [place] [id number] [facility] Care Teams Bread Supervisor Relationship Specialty Start Date End Date Regina Paz [address] [place] [id number] PCP - General Pediatrics 12/21/22
--- OUTSIDE RECORDS SUMMARY | 2025-01-01 08:01 | XMS_ITS | Encounter Summary ---
Author Organization 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 Not on file Not on file documented as of this encounter Plan of Treatment Upcoming Encounters Date Type Department Care Team (Late st Contact Info) Description 01/07/2025 10:00 AM EDT Office Visit [facility] OPTOMETRY [address] [place] [address] Tessa Randall OD [address] [place] [address] 02/17/2025 10:00 AM EDT Office Visit [facility] MEDICAL [address] [place] [address] Regina Paz MD [address] [place] [address] 06/18/2025 8:30 AM EST Office Visit [facility] DENTAL [address] [place] [address] Darron Cedeño documented as of this encounter Procedures Procedure [...] documented as of this encounter Care Teams Hazardous Substances Scientist Relationship Specialty Start Date End Date Regina Paz MD [address] [place] [id number] PCP - General Internal Medicine 06/09/22 documented as of this encounter
--- NOTE | 2025-01-01 08:50 | PFT_ITS ---
Flows: FEV1: 109 % of predicted at 2.59 L FVC: 114 % of predicted at 3.44 L FEV1/FVC: 75 % Bronchodilator response: Absent Volumes: Total lung capacity: 96 % of predicted at 4.70 L Residual volume: 75 % of predicted at 1.26 L Slow vital capacity: 106 % of predicted at 3.44 L Expiratory reserve volume: 93 % of predicted at 0.73 L Diffusion capacity: Mildly decreased, corrects to normal after adjustment for alveolar ventilation. Impression: No obstructive or restrictive ventilatory defect. No bronchodilator response. Decreased diffusion capacity suggests emphysema. MTDD
[2025-01-01 09:34] VITALS: PULSE 68; O2SAT 98
== END 2025-01-01 07:58 | disposition home or self-care (01) ==
LOC: HO.RESP 07:57
PROVIDERS: PCP Internal Medicine; Visit Provider Hospitalist
DX: R06.09 Other forms of dyspnea (principal)
CPT/HCPCS: 94010; 94640; 94727; 94729

== ENCOUNTER → 2025-01-01 08:50 | Outpatient (BNV) | payer OTHER, SELFPAY | PROVIDERS: PCP Internal Medicine; Visit Provider Internal Medicine Pulmonary Disease | DX: R06.00 Dyspnea, unspecified (principal) | CPT/HCPCS: 94060; 94727; 94729 ==

== ENCOUNTER 2025-02-27 09:52 | Outpatient (AMB) | payer OTHER, SELFPAY ==
--- OUTSIDE RECORDS SUMMARY | 2021-01-18 | XMS_ITS | Encounter Summary ---
Author Organization [facility] Address [address] [place] [address] [place] [phone] Phone Care Team Providers Care Temporary Receptionist Name Role Phone Regina Paz MD Primary Care Provider [phone] Encounter Details Date Type Department Care Team (Late st Contact Info) Description 01/18/2021 Hospital Encounter [facility] OUTS[facility] [address] [place] [phone] Jesus Lance MD [address] [place] [phone] [email or web address] Social History Tobacco Use Types Packs/Day Years [...] 10:21 AM EDT Ric Pierce RN * [place] Suicide Severity Rating Scale (Screener/Recent Self-Report) Question [...] EDT) 05/06/2021 12:3 7 PM EST Impressions [facility] - 05/06/2021 12:41 PM EST Multiple cysts [...] would be an additional diagnostic consideration. 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 PCP - General Internal Medicine 12/27/20 documented as of this encounter Additional Source Comments The information contained in this document represents components of the legal health record. It is not the complete legal health record.[facility]
--- OUTSIDE RECORDS SUMMARY | 2021-05-09 01:00 | XMS_ITS | Encounter Summary ---
Author Organization [facility] Address [address] [place] [address] [place] [address] Phone Care Team Providers Care Electrician Crane Maintenance Name Role Phone Regina Paz MD Primary Care Provider [phone] Encounter Details Date Type Department Care Team (Late st Contact Info) Description 05/09/2021 Hospital Encounter [facility] OUTS[facility] [address] [place] [address] Jesus Lance MD [address] [place] [phone] [email or web address] Social History Tobacco Use Types [...] 10:21 AM EDT Ric Pierce RN * [place] Suicide Severity Rating Scale (Screener/Recent Self-Report) Question [...] EST) 07/16/2021 12:1 4 PM EST Impressions [facility] - 07/16/2021 12:23 PM EST 1. Decrease in size of 2 cysts within the tongue. The most posterior cyst in the tongue base is not significantly changed. Narrative [facility] - 07/16/2021 12:23 PM EST MRI [...] maximum dimension is not significantly changed, currently ivrfojhgh31.6 mm in maximum dimension. 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 It is not the complete legal health record.[facility]
--- OUTSIDE RECORDS SUMMARY | 2021-12-16 | XMS_ITS | Encounter Summary ---
Author Organization [facility] Address [address] [place] [address] [place] [phone] Phone Care Team Providers Care Electrical Test Technician Name Role Phone Regina Paz MD Primary Care Provider [phone] Encounter Details Date Type Department Care Team (Late st Contact Info) Description 12/16/2021 Hospital Encounter [facility] OUTSIDE [address] [place] [address] Jesus Lance MD [address] [place] [phone] [email or web address] Social History Tobacco Use Types [...] 10:21 AM EDT Ric Pierce RN * [place] Suicide Severity Rating Scale (Screener/Recent Self-Report) Question [...] on filedocumented in this encounter Care Teams Electrical Test Technician Relationship Specialty Start Date End Date Regina Paz MD [address] [place] [phone] [email or web address] PCP - General Internal Medicine 12/27/20 documented as of this encounter Additional Source Comments The information contained in this document represents components of the legal health record. It is not the complete legal health record.[facility]
--- OUTSIDE RECORDS SUMMARY | 2021-12-16 00:05 | XMS_ITS | Encounter Summary ---
Author Organization [facility] Address [address] [place] [address] [place] [phone] Phone Care Team Providers Care Design Drafter Name Role Phone Regina Paz MD Primary Care Provider [phone] Encounter Details Date Type Department Care Team (Late st Contact Info) Description 12/16/2021 12:05 AM EDT Hospital Encounter [facility] OUTSIDE [address] [place] [address] Jesus Lance MD [address] [place] [address] [email or web address] Social History Tobacco Use Types Packs/Day Years [...] 10:21 AM EDT Ric Pierce RN * [place] Suicide Severity Rating Scale (Screener/Recent Self-Report) Question [...] glands documented in this encounter Care Teams Design Drafter Relationship Specialty Start Date End Date Regina Paz MD [address] [place] [phone] [email or web address] PCP - General Internal Medicine 12/27/20 documented as of this encounter Additional Source Comments The information contained in this document represents components of the legal health record. It is not the complete legal health record.[facility]
[2025-02-27 09:58] VITALS: BP 126/84; PULSE 83; O2SAT 98
--- NOTE | 2025-02-27 09:58 | A.OFFVIS_ITS ---
Vital Signs 02/27/25 09:58 Height 5 ft 2 in BMI Reason not done Patient refused/unable BP 126/84 Blood Pressure Location Lt brachial Position Sitting Pulse 83 Pulse Source Pulse Oximeter Pulse Oximetry (%) 98 Oxygen Delivery Method Room Air Intake Visit Reasons: Shortness of Breath/Pericardial Effusion Space Systems Operations Superintendent Required: No Accompanied by: Self / Same As Patient Allergies pollen extracts Allergy (Intermediate, Verified 02/27/25 10:00) Runny Nose atorvastatin Allergy (Mild, Verified 02/27/25 10:00) muscle pain blue dye Allergy (Mild, Verified 02/27/25 10:00) Unknown iodine Allergy (Mild, Verified 02/27/25 10:00) Itching red dye Allergy (Mild, Verified 02/27/25 10:00) Unknown tree and shrub pollen Allergy (Mild, Verified 02/27/25 10:00) Nasal congestion erythromycin base Allergy (Verified 02/27/25 10:00) Nausea and Vomiting azathioprine Adverse Reaction (Severe, Verified 02/27/25 10:00) vomiting and diarrhea stevioside (From Stevia) Adverse Reaction (Verified 02/27/25 10:00) Abdominal Pain green dye Allergy (Severe, Uncoded 06/19/24 08:54) Headache molds and smuts Allergy (Severe, Uncoded 06/19/24 08:54) hadache HPI Comments Details: The patient is a 59 year woman now with a diagnosis of systemic lupus erythematous. She was having issues with a recurrent effusion and she was treated effectively for that. She recently saw a new coverstitch elastic attacher. She is currently getting associated with them getting additional blood work and also looking to starting additional medications to try to control the inflammatory process. The last blood work [place] [address] and also had a significant elevation in sedimentation rate above 70 and a significant CRP. There significant amount of inflammation going on the body. She has had plenty of dosages of prednisone. In addition to that she had been on chronic prednisone for some time and she did not like the feeling. Constitute have significant cushingoid appearance and cushingoid symptoms. Therefore she is trying to avoid prednisone at all cost. The patient did have a CTA done sometime in september which I personally reviewed. She has been having significant tachycardia she did follow-up with cardiology for that. The patient CTA was personally by me. She does have evidence of ground-glass opacities suggesting some degree of pneumonitis likely from the connective tissue disease. In addition to that she did have an echocardiogram which we reviewed demonstrating sinus tachycardia with normal function. Pulmonary pressures were stated to be within normal limits. We did go for brief walking oximetry during the office visit. The patient became tachycardic up to 130 beats per minute with minimal activity. Pulse ox stable at 98%. Therefore, explained to her that his shortness of breath she is feeling right now is primarily due to her significant inflammation and tachyarrhythmia. At this point I do not believe inhalers will help her respiratory symptoms. Although, I do believe that based on the fact that is not clear why she has SVT but the current heart rate is affecting her respiratory symptoms and would not be unreasonable to try small dose of metoprolol to try to settle down the heart rate in order to feel less symptomatic. I will talk to her brazer assembler about that. 01/25/2024 the patient is here for a pulmonary follow-up visit. The patient is doing significantly better did undergo a repeat CT scan of the chest which I personally reviewed. There appears to be small 4 mm pulmonary nodule. The ground-glass opacities have significantly improved. Otherwise her CT scan is back to her baseline. Heart rate is also better. She is following up with Cardiology. Her medications are being adjusted. Clinically the patient is doing well. She did not have PFTs but at this point clinically she is doing well we can hold off at this time. The patient will return in a year after follow-up CT scan. If she develops any worsening symptoms prior to that she will call for an earlier assessment. 04/17/2024 the patient is here for pulmonary sick visit. Apparently back in December she developed COVID. Afterwards she started developing worsening shortness breath worsening tachycardia. She is on multiple rate controlling agents already. She was open that after a few months her symptoms subside but she still having hard time. She also complains of daytime drowsiness and fatigue. She does sleep all night and she does wake up tired. I did offer her sleep study but she will think about it and she lost her to documented she is having any apneic episodes. I did go be reasonable at some point to do a home sleep study. Specially with her tachycardia issues. She will let me know. In the meantime she also will be a good candidate for pulmonary rehabilitation post post COVID syndrome. Appears to have some degree of drowsiness will have blood work done including cortisol level and also check her cardiac enzymes. The patient also may consider a stimulant as long as she can not tolerated to help her with chronic fatigue after viral syndrome sometimes a small dose of Provigil or Nuvigil help improve her symptoms. She is going to follow-up with endocrinology as well as she does have thoughts thyroid disease and she can fol low-up with her cortisol levels. Rhino I do believe that she is able to exercise without hurting herself. She is able to did do it online through the pulmonary wellness online program or she can do it in person year at [facility]. 02/27/2025 the patient is here for pulmonary follow-up visit. The patient is starting to feel better. She is looking to go back to work although she is still working on covering after lung COVID. The patient has been working on exercise and continues to follow closely Rheumatology. The patient has responded well to the IL 1 inhibitor. She continues to follow up Rheumatology. We did review her last CT scan that was done back in December 2023. I personally reviewed. The patient has multiple pulmonary nodules bilaterally subcentimeter in nature. Also has some minimal atelectasis. The patient also underwent pulmonary function studies more recently in December. The patient has a isolated mild diffusion impairment. This could be secondary to the underlying minimal scarring that she has a on the CAT scan. Will go ahead and repeat the CAT scan to follow-up with the pulmonary nodules and also to follow-up with the pulmonary fibrotic changes. The patient will follow-up in a year's time if she has any issues prior to this she can always call for further recommendations. [facility] Medical History (Updated 12/09/24 @ 09:27 by HALEY Lara) Hx of gastritis Pain of multiple sites Pneumonitis Pericardial effusion Acute pericardial effusion Low serum cortisol level Fatigue Pulmonary nodule SVT (supraventricular tachycardia) Dyspnea Esophageal candidiasis Ileitis Abdominal pain Inflammation of small intestine History of anesthesia complications Hx of chest pain Fusion of spine, cervical region TMJ syndrome Cervical radiculopathy Elevated cholesterol Osteoarthritis Hx of migraine headaches Multinodular thyroid Surgical History Hx of shoulder surgery S/P thyroid biopsy H/O colonoscopy History of esophagogastroduodenoscopy (EGD) History of spinal fusion Hx of dilation and curettage Hx of cholecystectomy Hx of tonsillectomy Hx of tubal ligation Family History Mother Diabetes Uterine cancer Hypertension Father Diabetes Hypertension Stroke Family/Other Colon cancer Social History Household Members: Spouse Housing: House Are you a primary healthcare analyst to a significant other at home: No Do you presently have visiting nurse or other home services: No Alcohol intake: never Patient Tobacco Use Status: Former Tobacco user Tobacco use type: Cigarette Cigarettes Per Day: 10 Years Smoked: 5 Substance Use Type: Marijuana service: No Current occupational status: employed Current occupation: right hand dominant Review of Systems Const Reports daytime sleepiness, Reports fatigue and Denies fever(s) Eyes Reports no additional complaints ENT Denies nasal congestion Card Denies chest pain, Reports palpitations and Reports dyspnea on exertion Resp Denies pain on inspiration, Reports dyspnea on exertion and Denies wheezing GI Reports change in stool character Musc Denies joint swelling and Denies stiffness Skin/Breast Reports rash Neuro Reports no additional complaints Endo Reports fatigue and Reports palpitations Boom/Lymph Denies easy bleeding Aller/Immun Denies wheezing Physical Exam Vital Signs: Last Vital Signs Pulse 83 02/27/25 09:58 BP 126/84 02/27/25 09:58 Pulse Ox 98 02/27/25 09:58 Oxygen Delivery Method Room Air 02/27/25 09:58 Const General: cooperative and comfortable Orientation/consciousness: patient oriented x3 Limitations: no limitations HEENT Other: Dry mucous membranes Head: Yes normocephalic and Yes atraumatic Neck Neck: Yes supple Chest Chest palpation & inspection: normal inspection of the chest Resp Effort & Inspection: normal respiratory effort Auscultation: clear to auscultation bilaterally, no rales, no rhonchi and no wheezes Cardio Rate: regular rate Rhythm: regular rhythm Heart sounds: S1 normal heart sound present and S2 normal heart sound present GI Palpation (GI): Soft to palpation Skin Other: Significant livedo reticularis on her back, arms, thighs General skin exam: no rashes or lesions noted Neuro General: patient oriented x3 Extrem Other: Mildly cool fingertips Normal nailfold capillaroscopy No active synovitis General: Yes no clubbing, cyanosis or edema Assessment & Plan Assessment & Plan (1) Systemic lupus erythematosus: Code(s): M32.9 - Systemic lupus erythematosus, unspecified Category: Medical Qualifiers: Systemic lupus erythematosus organ involvement: lung involvement Systemic lupus erythematosus type: unspecified Qualified Code(s): M32.13 - Lung involvement in systemic lupus erythematosus (2) Pneumonitis: Comment: resolved Code(s): J98.4 - Other disorders of lung Category: Medical (3) Pulmonary nodule: Code(s): R91.1 - Solitary pulmonary nodule Category: Medical (4) Dyspnea: Code(s): R06.00 - Dyspnea, unspecified Category: Medical Qualifiers: Dyspnea type: dyspnea on exertion Qualified Code(s): R06.09 - Other forms of dyspnea (5) Fatigue: Code(s): R53.83 - Other fatigue Category: Medical Qualifiers: Fatigue type: unspecified Qualified Code(s): R53.83 - Other fatigue Code(s): R79.89 - Other specified abnormal findings of blood chemistry Category: Medical Plan CT chest consider sleep study F/U in 8-12 months Orders: Orders CT chest wo IV con 02/27/25 R91.1 - Solitary pulmonary nodule Coding Level of Care Code Est Pt Level 4 (93196) Complex EM visit Add On G2211 Diagnoses Systemic lupus erythematosus with lung involvement, unspecified SLE type M32.13 Systemic lupus erythematosus organ involvement: lung involvement Systemic lupus erythematosus type: unspecified Pneumonitis J98.4 Pulmonary nodule R91.1 Dyspnea on exertion R06.09 Dyspnea type: dyspnea on exertion Fatigue, unspecified type R53.83 Fatigue type: unspecified Post-acute COVID-19 syndrome R79.89 Time Spent (min) 17
--- OUTSIDE RECORDS SUMMARY | 2025-02-27 10:33 | XMS_ITS | Encounter Summary ---
Author Organization [employer] Address [address] [place] [address] 7 [place] [address] Care Team Providers Care Ambulance Assistant Name Role Phone Regina Paz MD Primary Care Provider [phone] Encounter Details Date Type Department Care Team [...] Care Team (Late st Contact Info) Description 03/24/2025 10:00 AM EDT Office Visit [facility] MEDICAL [address] [place] [address] Regina Paz MD [address] [place] [address] 06/18/2025 8:30 AM EST Office Visit [facility] DENTAL [address] [place] [address] Darron Cedeño 08/12/2025 8:30 AM EDT Office Visit [facility] OPTOMETRY [address] [place] [address] Tessa Randall OD [address] [place] [address] documented as of this encounter Visit Diagnoses Not on filedocumented in this encounter Care Teams Ambulance Assistant Relationship Specialty Start Date End Date Regina Paz MD [address] [place] [address] PCP - General Internal Medicine 06/09/22 documented as of this encounter
--- OUTSIDE RECORDS SUMMARY | 2025-02-27 10:33 | XMS_ITS | Encounter Summary ---
Author Organization [employer] Address [address] [place] [address] 7[address] [place] [address] Care Team Providers Care Puppy Trainer Name Role Phone Regina Paz MD Primary Care Provider [phone] Encounter Details Date Type Department Care Team (Late st Contact Info) Description 01/23/[address] 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 MEDICAL [address] [place] [address] Regina Paz MD [address] [place] [address] 06/18/2025 8:30 AM EST Office Visit [facility] DENTAL [address] [place] [address] Darron Cedeño 08/12/2025 8:30 AM EDT Office Visit [facility] OPTOMETRY [address] [place] [address] Tessa Randall, OD [address] [place] [address] documented as of this encounter Procedures Procedure [...] documented as of this encounter Care Teams Puppy Trainer Relationship Specialty Start Date End Date Regina Paz MD [address] [place] [address] PCP - General Internal Medicine 06/09/22 documented as of this encounter
--- OUTSIDE RECORDS SUMMARY | 2025-02-27 10:33 | XMS_ITS | Encounter Summary ---
Author Organization [employer] Address [address] [facility] 7[address] [place] [address] Care Team Providers Care Vegetable Harvest Worker Name Role Phone Regina Paz MD Primary Care Provider [phone] Encounter Details Date Type Department Care Team (Late st Contact Info) Description 01/16/2025 Orders Only [facility] [address] [place] [address] Regina Paz MD [address] [place] [address] Social History Tobacco Use Types Packs/Day Years [...] Answer Date Recorded Patient Health Questionnaire-9 Score 9 12/04/2024 Patient Health Questionnaire-9 Score 9 12/04/2024 Last PHQ-9: Questionnaire Data Not on file 0 12/04/2024 Housing Stability Answer Date Recorded What is [...] Answer Date Recorded Patient Health Questionnaire-2 Score 2 12/04/2024 Internet Access Answer Date Recorded Internet Access Q1 Yes 06/27/2024 Internet Access Q2 Not on file 06/27/2024 Comments No Sex and Gender Information Value Date Recorded Sex Assigned at Female 05/16/2023 3:07 PM EST Legal Sex Female 5:37 PM EDT Gender Identity Female 05/16/2023 3:07 PM EST Sexual Orientation Straight 07/02/2023 11 :50 AM EST Occupation Industry Job Start Date Job End Date [employer] Not on file Not on file Not on file documented as of this encounter Plan of Treatment Upcoming Encounters Date Type Department Care Team (Late st Contact Info) Description 03/24/2025 10:00 AM EDT Office Visit [facility] MEDICAL [address] [place] [address] Regina Paz MD [address] [place] [address] 06/18/2025 8:30 AM EST Office Visit [facility] DENTAL [address] [place] [address] Darron Cedeño 08/12/2025 8:30 AM EDT Office Visit [facility] OPTOMETRY [address] [place] [address] Tessa Randall OD [address] [place] [address] documented as of this encounter Procedures Procedure Name Priority Date/Time Associated Diagnosis Comments PULMONARY FUNCTION TESTING Routine 01/01/2025 9:14 AM EDT documented in this encounter Results * Pulmonary function testing (01/01/2025 9:14 AM EDT) us Regina Paz MD PFT ORDERABLES Final Result documented in this encounter Visit Diagnoses Not on filedocumented in this encounter Additional Health Concerns Assessment Noted Time PHQ-9 Depression Total Score: 9 12/05/19 25 11:43 AM EDT documented as of this encounter Care Teams Vegetable Harvest Worker Relationship Specialty Start Date End Date Regina Paz MD [address] [place] [address] PCP - General Internal Medicine 06/09/22 documented as of this encounter
--- OUTSIDE RECORDS SUMMARY | 2025-02-27 10:33 | XMS_ITS | Encounter Summary ---
Author Organization [employer] Address [address] [place] [address] 7 [place] [address] Care Team Providers Care Town Marshal Name Role Phone Regina Paz MD Primary Care Provider [phone] Encounter Details Date Type Department Care Team [...] 10:00 AM EDT Office Visit [facility] MEDICAL [address] [place] [address] Regina Paz MD [address] [place] [address] 06/18/2025 8:30 AM EST Office Visit [facility] DENTAL [address] [place] [address] Darron Cedeño 08/12/2025 8:30 AM EDT Office Visit [facility] OPTOMETRY [address] [place] [address] Tessa Randall OD [address] [place] [address] documented as of this encounter Visit Diagnoses Not on filedocumented in this encounter Care Teams Town Marshal Relationship Specialty Start Date End Date Regina Paz MD [address] [place] [address] PCP - General Internal Medicine 06/09/22 documented as of this encounter
--- OUTSIDE RECORDS SUMMARY | 2025-02-27 10:33 | XMS_ITS | Clinical Summary ---
Author Organization [facility] Address [address] [id number] Care Team Providers Care Clinical Rn Liaison Name Role Phone Regina Paz MD Primary [...] age to complete this topic Care Teams Clinical Rn Liaison Relationship Specialty Start Date End Date Regina Paz MD [address] [place] [address] PCP - General Internal Medicine 09/02/20
--- OUTSIDE RECORDS SUMMARY | 2025-02-27 10:33 | XMS_ITS | Encounter Summary ---
Author Organization [employer] Address [address] [place] [address] 7 [place] [address] Care Team Providers Care Cut Off Machine Helper Name Role Phone Regina Paz MD Primary Care Provider [phone] Encounter Details Date Type Department Care Team [...] 03/24/2025 10:00 AM EDT Office Visit [facility] MEDICAL [address] [place] [address] Regina Paz MD [address] [place] [address] 06/18/2025 8:30 AM EST Office Visit [facility] DENTAL [address] [place] [address] Darron Cedeño 08/12/2025 8:30 AM EDT Office Visit [facility] OPTOMETRY [address] [place] [address] Tessa Randall OD [address] [place] [address] documented as of this encounter Visit Diagnoses Not on filedocumented in this encounter Care Teams Cut Off Machine Helper Relationship Specialty Start Date End Date Regina Paz MD [address] [place] [address] PCP - General Internal Medicine 06/09/22 documented as of this encounter
--- OUTSIDE RECORDS SUMMARY | 2025-02-27 10:33 | XMS_ITS | Clinical Summary ---
Author Organization [facility] Address [address] [place] [address] Care Team Providers Care Dock Clerk Name Role Phone Regina Paz Primary Care Provider [phone] Allergies Active Allergy Reactions Criticality Noted Date [...] (1 of 2) 09/14/2013 Mammogram 09/13/2019 09/12/2017 Alcohol/Substance Use Screening 05/28/2024 Depression Screening and Follow-Up 05/28/2024 Social Drivers of Health Annual Screening 05/28/2024 CT Lung Cancer Screening (Baseline) 08/10/2024 08/11/2023 COVID-19 Vaccine ( season) 2025 05/17/2023, 03/03/2022, 02/25/2021, Additional history exists Influenza Vaccine (#1) 2025 , 03/03/2022, 02/25/2021, Additional history exists DTaP,Tdap,and Td Vaccines (5 - Td or Tdap) 09/09/2031 09/08/2021, 04/16/2018, 11/15/2010, Additional history exists RSV Vaccine (60+ years old and patients) (1 - 1-dose 75+ series) 09/14/2038 Hepatitis B Vaccines Aged Out 01/15/1993, 12/20/1991, 07/20/1991 No longer eligible based on patient's age to complete this topic Hepatitis C Screening Completed 05/15/2023 Procedures * Due to [place] [employer] law, this organization might not be sharing negative HIV tests. Procedure Name Priority Date/Time Associated Diagnosis Comments HEPATITIS C ANTIBODY W/REFLEX TO HCV RNA, QUANTITATIVE PCR Routine 05/15/2023 10:55 AM EST Pericarditis, unspecified chronicity, unspecified type from Last 3 Months or Most Recently Relevant to Health Maintenance Results * Due to [place] [employer] law, this organization might not be sharing negative HIV tests. * Hepatitis C Antibody w/Reflex to HCV RNA, Quantitative PCR (05/15/2023 10:55 AM EST) Hepatitis C Antibody NON-REACT LIOR NON-REACT LIOR 05/15/2023 10:28 PM EST [employer] Comment: HCV antibody was non-reactive. There is no laboratory evidence of HCV infection. In most cases, no further action is required. However, if recent HCV exposure is suspected, a test for HCV RNA (test code 69296) is suggested. For additional information please refer to http://education.[employer]/faq/NZY37r5 (This link is being provided for informational/ educational purposes only.) Blood Structure of peripheral vein / Unknown Venipuncture / Unknown 05/15/2023 10:55 AM EST 05/15/2023 11:27 AM EST [facility] 05/15/2023 10:28 PM EST [facility] Received Date: us Violeta Quintana MD LAB BLOOD ORDERABLES Final Re sult [facility] [address] [facility] [address], [place] [address], [place] [phone] [facility] [address] [facility] [address]rd [address], [place] [address], [place] [phone] from Last 3 Months or Most Recently Relevant to Health Maintenance [place] [address] [address] , [place] [address] Care Teams Dock Clerk Relationship Specialty Start Date End Date Regina Paz [address] [place] [address] PCP - General Pediatrics 12/21/22
--- OUTSIDE RECORDS SUMMARY | 2025-02-27 10:33 | XMS_ITS | Encounter Summary ---
Author Organization [employer] Address [address] [facility] 7t [place] [address] Care Team Providers Care Export Packer Name Role Phone Regina Paz MD Primary Care Provider [phone] Encounter Details Date Type Department Care Team (Late st Contact Info) Description 06/22/[address] 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 MEDICAL [address] [place] [address] Regina Paz MD [address] [place] [address] 06/18/2025 8:30 AM EST Office Visit [facility] DENTAL [address] [place] [address] Darron Cedeño 08/12/2025 8:30 AM EDT Office Visit [facility] OPTOMETRY [address] [place] [address] Tessa Randall OD [address] [place] [address] documented as of this encounter Procedures Procedure [...] documented as of this encounter Care Teams Export Packer Relationship Specialty Start Date End Date Regina Paz MD [address] [place] [address] PCP - General Internal Medicine 06/09/22 documented as of this encounter
--- OUTSIDE RECORDS SUMMARY | 2025-02-27 10:33 | XMS_ITS | Encounter Summary ---
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 on file Not on file documented as of this encounter Plan of Treatment Upcoming Encounters Date Type Department Care Team (Late st Contact Info) Description 03/24/2025 10:00 AM EDT Office Visit [facility] MEDICAL [address] [place] [address] Regina Paz MD [address] [place] [address] 06/18/2025 8:30 AM EST Office Visit [facility] DENTAL [address] [place] [address] Darron Cedeño 08/12/2025 8:30 AM EDT Office Visit [facility] OPTOMETRY [address] [place] [address] Tessa Randall, OD [address] [place] [address] documented as of this encounter Procedures Procedure [...] documented as of this encounter Care Teams Head Porter Baggage Relationship Specialty Start Date End Date Regina Paz MD [address] [place] [address] PCP - General Internal Medicine 06/09/22 documented as of this encounter
--- OUTSIDE RECORDS SUMMARY | 2025-02-27 10:33 | XMS_ITS | Encounter Summary ---
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 Not on file Not on file documented as of this encounter Plan of Treatment Upcoming Encounters Date Type Department Care Team (Late st Contact Info) Description 03/24/2025 10:00 AM EDT Office Visit [facility] MEDICAL [address] [place] [address] Regina Paz MD [address] [place] [address] 06/18/2025 8:30 AM EST Office Visit [facility] DENTAL [address] [place] [address] Darron Cedeño 08/12/2025 8:30 AM EDT Office Visit [facility] OPTOMETRY [address] [place] [address] Tessa Randall, JORGITO [address] [place] [address] documented as of this encounter Procedures Procedure [...] documented as of this encounter Care Teams Waiter/Waitress Cocktail Lounge Relationship Specialty Start Date End Date Regina Paz MD [address] [place] [address] PCP - General Internal Medicine 06/09/22 documented as of this encounter
--- OUTSIDE RECORDS SUMMARY | 2025-02-27 10:33 | XMS_ITS | Encounter Summary ---
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 file Not on file documented as of this encounter Plan of Treatment Upcoming Encounters Date Type Department Care Team (Late st Contact Info) Description 03/24/2025 10:00 AM EDT Office Visit [facility] MEDICAL [address] [place] [address] Regina Paz MD [address] [place] [address] 06/18/2025 8:30 AM EST Office Visit [facility] DENTAL [address] [place] [address] Darron Cedeño 08/12/2025 8:30 AM EDT Office Visit [facility] OPTOMETRY [address] [place] [address] Tessa Randall, OD [address] [place] [address] documented as of this encounter Procedures Procedure [...] documented as of this encounter Care Teams County Treasurer Relationship Specialty Start Date End Date Regina Paz MD [address] [place] [address] PCP - General Internal Medicine 06/09/22 documented as of this encounter
--- OUTSIDE RECORDS SUMMARY | 2025-02-27 10:33 | XMS_ITS | Encounter Summary ---
Author Organization [employer] Address [address] [place] [address] 7 [place] [address] Care Team Providers Care Digital Associate Media Director Name Role Phone Regina Paz MD Primary Care Provider [phone] Encounter Details Date Type Department Care Team [...] Description 03/24/2025 10:00 AM EDT Office Visit [facility] MEDICAL [address] [place] [address] Regina Paz MD [address] [place] [address] 06/18/2025 8:30 AM EST Office Visit [facility] DENTAL [address] [place] [address] Darron Cedeño 08/12/2025 8:30 AM EDT Office Visit [facility] OPTOMETRY [address] [place] [address] Tessa Randall OD [address] [place] [address] documented as of this encounter Visit Diagnoses Not on filedocumented in this encounter Care Teams Digital Associate Media Director Relationship Specialty Start Date End Date Regina Paz MD [address] [place] [address] PCP - General Internal Medicine 06/09/22 documented as of this encounter
--- OUTSIDE RECORDS SUMMARY | 2025-02-27 10:33 | XMS_ITS | Encounter Summary ---
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 on file Not on file documented as of this encounter Plan of Treatment Upcoming Encounters Date Type Department Care Team (Late st Contact Info) Description 03/24/2025 10:00 AM EDT Office Visit [facility] MEDICAL [address] [place] [address] Regina Paz MD [address] [place] [address] 06/18/2025 8:30 AM EST Office Visit [facility] DENTAL [address] [place] [address] Darron Cedeño 08/12/2025 8:30 AM EDT Office Visit [facility] OPTOMETRY [address] [place] [address] Tessa Randall OD [address] [place] [address] documented as of this encounter Procedures Procedure [...] documented as of this encounter Care Teams Electric Organ Inspector And Repairer Relationship Specialty Start Date End Date Regina Paz MD [address] [place] [address] PCP - General Internal Medicine 06/09/22 documented as of this encounter
--- OUTSIDE RECORDS SUMMARY | 2025-02-27 10:33 | XMS_ITS | Encounter Summary ---
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 on file Not on file documented as of this encounter Plan of Treatment Upcoming Encounters Date Type Department Care Team (Late st Contact Info) Description 03/24/2025 10:00 AM EDT Office Visit [facility] MEDICAL [address] [place] [address] Regina Paz MD 73 [place] [address] 06/18/2025 8:30 AM EST Office Visit [facility] DENTAL [address] [place] [address] Darron Cedeño 08/12/2025 8:30 AM EDT Office Visit [facility] OPTOMETRY [address] [place] [address] Tessa Randall, OD [address] [place] [address] documented as of this encounter Procedures Procedure [...] documented as of this encounter Care Teams Christmas Tree Farm Manager Relationship Specialty Start Date End Date Regina Paz MD [address] [place] [address] PCP - General Internal Medicine 06/09/22 documented as of this encounter
--- OUTSIDE RECORDS SUMMARY | 2025-02-27 10:33 | XMS_ITS | Encounter Summary ---
Author Organization [facility] Address [address] [place] [address] Care Team Providers Care Aircraft Landing Gear Inspector Name Role Phone Regina Paz Primary Care Provider [phone] Reason for Visit * Reason Onset Date Comments PAC RX Refill 10/08/2023 Dr. Abad Borrego calling from [facility] as she needs clarification re: quantity of how many capsule should patient be taking daily. Encounter Details Date Type Department Care Team (Late st Contact Info) Description 10/08/2023 Telephone [facility] [address] [place] [address] Telephone Intake, Staff PAC RX Refill (Dr. Abad Borrego calling from [facility] as she needs clarification re: [...] EDT Dr. Melgoza patient. Salima calling from [facility] as she needs clarification re: quantity of how many capsule should patient be taking daily. Medication name: NALTREXONE 1.5 MG Salima tel #: [phone]. Thank you-PAC documented in this encounter Plan of Treatment Not on file documented as of this encounter Visit Diagnoses Not on filedocumented in this encounter Care Teams Aircraft Landing Gear Inspector Relationship Specialty Start Date End Date Regina Paz [address] [place] [address] PCP - General Pediatrics 12/21/22 documented as of this encounter
--- OUTSIDE RECORDS SUMMARY | 2025-02-27 10:33 | XMS_ITS | Encounter Summary ---
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 file Not on file documented as of this encounter Plan of Treatment Upcoming Encounters Date Type Department Care Team (Late st Contact Info) Description 03/24/2025 10:00 AM EDT Office Visit [facility] MEDICAL [address] [place] [address] Regina Paz MD 73 [place] [address] 06/18/2025 8:30 AM EST Office Visit [facility] DENTAL [address] [place] [address] Darron Cedeño 08/12/2025 8:30 AM EDT Office Visit [facility] OPTOMETRY [address] [place] [address] Tessa Randall, JORGITO 73 [place] [address] documented as of this encounter Procedures Procedure [...] documented as of this encounter Care Teams Manager Of Employee Relations Relationship Specialty Start Date End Date Regina Paz MD [address] [place] [address] PCP - General Internal Medicine 06/09/22 documented as of this encounter
--- OUTSIDE RECORDS SUMMARY | 2025-02-27 10:33 | XMS_ITS | Clinical Summary ---
Author Organization [facility] Address [address] [place] [address] Phone Care Team Providers Care Photostatic Copy Maker Name Role Phone Regina Paz MD Primary Care Provider [phone] Allergies No known active allergies Medications rosuvastatin [...] 8:05 AM EDT Sexual Orientation Straight 12/27/2020 8 :05 AM EDT Last Filed Vital Signs Vital [...] SMOKELESS TOBACCO SCREENING 09/14/1976 HIV ONE-TIME SCREENING (18-65 YEARS) 09/14/1981 PAP SMEAR 09/14/1984 SCREENING FOR DIABETES 09/14/1998 COLOGUARD 09/14/2008 COLONOSCOPY 09/14/2008 COLORECTAL CANCER SCREENING 09/14/2008 FIT TEST 09/14/2008 FOBT 09/14/2008 SIGMOIDOSCOPY 09/14/2008 VIRTUAL COLONOSCOPY 09/14/2008 PNEUMOCOCCAL VACCINES (50+ years) (1 of 1 - PCV) 09/14/2013 ZOSTER VACCINES (1 of 2) 09/14/2013 MAMMOGRAM 09/13/2019 09/12/2017, 09/12/2017 INFLUENZA VACCINE (#1) 2024 0, 03/05/2019, 03/08/2018, Additional history exists COVID-19 VACCINE ( season) 2025 06/03/2020, 05/13/2020 Adult Td,Tdap Booster 04/16/2028 04/16/2018 [...] Most Recently Relevant to Health Maintenance [place] [address] [place] [address] Care Teams Photostatic Copy Maker Relationship Specialty Start Date End Date Regina Paz MD [address] [place] [address] critical access PCP - General Internal Medicine 12/27/20 Additional Source Comments The information contained in this document represents components of the legal health record. It is not the complete legal health record.[facility]
--- OUTSIDE RECORDS SUMMARY | 2025-02-27 10:33 | XMS_ITS | Encounter Summary ---
Author Organization [facility] Address [address] [place] [address] Phone Care Team Providers Care Hospital Unit Coordinator Name Role Phone Regina Paz MD Primary Care Provider [phone] Encounter Details Date Type Department Care Team (Late st Contact Info) Description 11/05/2023 Procedure Pass [facility], Ct Scan - [address] [address] Social History Tobacco Use Types Packs/Day Years [...] 10:21 AM EDT Ric Pierce RN * [place] Suicide Severity Rating Scale (Screener/Recent Self-Report) Question Answer Date of Assessment Author 1. Wish to be (Past 1 Month) No 024 10:21 AM EDT Ric Pierce RN 2. Non-Specific Active Suici adrianna Thoughts (Past 1 Month) No 11/05/2023 10:21 AM SUSANT Ric Pierce RN 6. Suicidal Behavior (Lifetime) No 10:21 AM EDT Ric Pierce RN documented as of this encounter Plan of Treatment Not on file documented as of this encounter Visit Diagnoses Not on filedocumented in this encounter Care Teams Hospital Unit Coordinator Relationship Specialty Start Date End Date Regina Paz MD [address] [place] [address] [email or web address] PCP - General Internal Medicine 12/27/20 documented as of this encounter Additional Source Comments The information contained in this document represents components of the legal health record. It is not the complete legal health record.[facility]
--- OUTSIDE RECORDS SUMMARY | 2025-02-27 10:33 | XMS_ITS | Encounter Summary ---
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 documented in this encounter Plan of Treatment Upcoming Encounters Date Type Department Care Team (Late st Contact Info) Description 03/24/2025 10:00 AM EDT Office Visit [facility] MEDICAL [address] [place] [address] Regina Paz MD [address] [place] [address] 06/18/2025 8:30 AM EST Office Visit [facility] DENTAL [address] [place] [address] Darron Cedeño 08/12/2025 8:30 AM EDT Office Visit [facility] OPTOMETRY [address] [place] [address] Tessa Randall OD [address] [place] [address] documented as of this encounter Visit Diagnoses Not on filedocumented in this encounter Additional Health Concerns Assessment Noted Time PHQ-9 Depression Total Score: 9 12/05/19 25 11:43 AM EDT documented as of this encounter Care Teams Medical Parasitologist Relationship Specialty Start Date End Date Regina Paz MD [address] [place] [address] PCP - General Internal Medicine 06/09/22 documented as of this encounter
--- OUTSIDE RECORDS SUMMARY | 2025-02-27 10:33 | XMS_ITS | Encounter Summary ---
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 Not on file documented as of this encounter Plan of Treatment Upcoming Encounters Date Type Department Care Team (Late st Contact Info) Description 03/24/2025 10:00 AM EDT Office Visit [facility] MEDICAL [address] [place] [address] Regina Paz MD [address] [place] [address] 06/18/2025 8:30 AM EST Office Visit [facility] DENTAL [address] [place] [address] Darron Cedeño 08/12/2025 8:30 AM EDT Office Visit [facility] OPTOMETRY [address] [place] [address] Tessa Randall, OD [address] [place] [address] documented as of this encounter Procedures Procedure [...] documented as of this encounter Care Teams Dynamite Cartridge Crimper Relationship Specialty Start Date End Date Regina Paz MD [address] [place] [address] PCP - General Internal Medicine 06/09/22 documented as of this encounter
--- OUTSIDE RECORDS SUMMARY | 2025-02-27 10:33 | XMS_ITS | Encounter Summary ---
Author Organization [employer] Address [address] [place] [address] [facility] [place] [address] Care Team Providers Care Individual Pension Consultant Name Role Phone Regina Paz MD Primary Care Provider [phone] Encounter Details Date Type Department Care Team [...] Description 03/24/2025 10:00 AM EDT Office Visit [facility] MEDICAL [address] [place] [address] Regina Paz MD [address] [place] [address] 06/18/2025 8:30 AM EST Office Visit [facility] DENTAL [address] [place] [address] Darron Cedeño 08/12/2025 8:30 AM EDT Office Visit [facility] OPTOMETRY [address] [place] [address] Tessa Randall OD [address] [place] [address] documented as of this encounter Visit Diagnoses Not on filedocumented in this encounter Care Teams Individual Pension Consultant Relationship Specialty Start Date End Date Regina Paz MD [address] [place] [address] PCP - General Internal Medicine 06/09/22 documented as of this encounter
--- OUTSIDE RECORDS SUMMARY | 2025-02-27 10:34 | XMS_ITS | Encounter Summary ---
Author Organization [facility] Address [address] [place] [address] Phone Care Team Providers Care Gas Substation Operator Name Role Phone Cheryl Day MD Primary Care Provider Regina Chacko MD Primary Care Provider [phone] Encounter Details Date Type Department Care Team (Late st Contact Info) Description 08/23/2018 Ancillary Orders Virtual Department [address] [place] [address] Florentino Alba MD [address] [place] [address] Breast screening Social History Tobacco Use Types Packs/Day Years Used Date Smoking Tobacco: Never Assessed Comments No Sex and Gender Information Value Date Recorded Sex Assigned at Female 12/27/2020 8:05 AM EDT Legal Sex Female 5:58 PM EST Gender Identity Female 12/27/2020 8:05 AM EDT Sexual Orientation Straight 12/27/2020 8: 05 AM EDT documented as of this encounter Plan of Treatment Not on file documented as of this encounter Visit Diagnoses Diagnosis Breast screening Breast screening, unspecified documented in this encounter Care Teams Gas Substation Operator Relationship Specialty Start Date End Date Cheryl Day MD PCP - General 03/13/17 12/26/20 Regina Paz MD [address] [place] [address] PCP - General Internal Medicine 12/27/20 documented as of this encounter Additional Source Comments The information contained in this document represents components of the legal health record. It is not the complete legal health record.[facility]
--- OUTSIDE RECORDS SUMMARY | 2025-02-27 10:34 | XMS_ITS | Encounter Summary ---
Author Organization [facility] Address [address] [place] [address] Phone Care Team Providers Care Formal Waiter/Waitress Name Role Phone Cheryl Day MD Primary Care Provider Regina Chacko MD Primary Care Provider Encounter Details Date Type Department Care Team (Late st Contact Info) Description 08/02/2017 Ancillary Orders Virtual Department [address] [place] [address] Cheryl Day MD Breast screening Social History Tobacco Use Types [...] on file documented as of this encounter Results * BI MAMMOGRAM SCREENING WITH TOMOSYNTHESIS [...] Day MD IMG MG EXAMS Final Result documented in this encounter Visit Diagnoses Diagnosis Breast screening Breast screening, unspecified Breast screening Breast screening, unspecified documented in this encounter Care Teams Formal Waiter/Waitress Relationship Specialty Start Date End Date Cheryl Day MD PCP - General 03/13/17 12/26/20 Regina Paz MD [address] [place] [address] PCP - General Internal Medicine 12/27/20 documented as of this encounter Additional Source Comments The information contained in this document represents components of the legal health record. It is not the complete legal health record.[facility]
--- OUTSIDE RECORDS SUMMARY | 2025-02-27 10:34 | XMS_ITS | Encounter Summary ---
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 file Not on file documented as of this encounter Plan of Treatment Upcoming Encounters Date Type Department Care Team (Late st Contact Info) Description 03/24/2025 10:00 AM EDT Office Visit [facility] MEDICAL [address] [place] [address] Regina Paz MD [address] [place] [address] 06/18/2025 8:30 AM EST Office Visit [facility] DENTAL [address] [place] [address] Darron Cedeño 08/12/2025 8:30 AM EDT Office Visit [facility] OPTOMETRY [address] [place] [address] Tessa Randall OD [address] [place] [address] documented as of this encounter Procedures Procedure [...] - Misc (05/06/2024 7:32 AM EST) Result [facility] Provider MD LAB BLOOD ORDERABLES Laly l Result * FSH And LH (05/06/2024 7:27 AM EST) Result [facility] Provider MD LAB BLOOD ORDERABLES Laly l Result * Prolactin (05/06/2024 7:27 AM EST) Blood Venous blood specimen / Unknown Result [facility] Provider MD LAB BLOOD ORDERABLES Laly l Result * Other Reference Test - Misc (05/06/2024 7:27 AM EST) Result [facility] Provider MD LAB BLOOD ORDERABLES Laly l Result * DHEA Sulfate (05/06/2024 7:27 AM EST) Blood Venous blood specimen / Unknown Result [facility] Provider MD LAB BLOOD ORDERABLES Laly l Result documented in this encounter Visit Diagnoses Not on filedocumented in this encounter Additional Health Concerns Assessment Noted Time PHQ-9 Depression Total Score: 12 024 9:05 AM EST documented as of this encounter Care Teams Payable Manager Relationship Specialty Start Date End Date Regina Paz MD [address] [place] [address] PCP - General Internal Medicine 06/09/22 documented as of this encounter
--- OUTSIDE RECORDS SUMMARY | 2025-02-27 10:34 | XMS_ITS | Encounter Summary ---
Author Organization [employer] Address [address] [facility] 7t [place] [address] Care Team Providers Care Environmental Air Specialist Name Role Phone Regina Paz MD Primary Care Provider [phone] Encounter Details Date Type Department Care Team (Late st Contact Info) Description 05/29/[address] 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 MEDICAL [address] [place] [address] Regina Paz MD [address] [place] [address] 06/18/2025 8:30 AM EST Office Visit [facility] DENTAL [address] [place] [address] Darron Cedeño 08/12/2025 8:30 AM EDT Office Visit [facility] OPTOMETRY [address] [place] [address] Tessa Randall OD [address] [place] [address] documented as of this encounter Procedures Procedure [...] documented as of this encounter Care Teams Environmental Air Specialist Relationship Specialty Start Date End Date Regina Paz MD [address] [place] [address] PCP - General Internal Medicine 06/09/22 documented as of this encounter
--- OUTSIDE RECORDS SUMMARY | 2025-02-27 10:34 | XMS_ITS | Encounter Summary ---
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 file Not on file documented as of this encounter Plan of Treatment Upcoming Encounters Date Type Department Care Team (Late st Contact Info) Description 03/24/2025 10:00 AM EDT Office Visit [facility] MEDICAL [address] [place] [address] Regina Paz MD [address] [place] [address] 06/18/2025 8:30 AM EST Office Visit [facility] DENTAL [address] [place] [address] Darron Cedeño 08/12/2025 8:30 AM EDT Office Visit [facility] OPTOMETRY [address] [place] [address] Tessa Randall OD [address] [place] [address] documented as of this encounter Procedures Procedure [...] Blood Venous blood specimen / Unknown Result [facility] MD LAB BLOOD ORDERABLES Laly l Result * B Type Natriuretic Peptide (BNP) (06/11/2024 7:56 AM EST) Blood Venous blood specimen / Unknown Result [facility] MD LAB BLOOD ORDERABLES Laly l Result * DHEA Sulfate (06/10/2024 7:58 AM EST) Blood Venous blood specimen / Unknown Result [facility] MD LAB BLOOD ORDERABLES Laly l Result * Comprehensive Metabolic Panel (06/10/2024 7:55 AM EST) Blood Venous blood specimen / Unknown Result [facility] MD LAB BLOOD ORDERABLES Laly l Result * C-reactive Protein (06/10/2024 7:55 AM EST) Blood Venous blood specimen / Unknown Result [facility] MD LAB BLOOD ORDERABLES Laly l Result * Lipid Panel, Standard (06/10/2024 7:55 AM EST) Blood Venous blood specimen / Unknown Result [facility] MD LAB BLOOD ORDERABLES Laly l Result * Cortisol Random (06/10/2024 7:55 AM EST) Result [facility] MD LAB BLOOD ORDERABLES Laly l [...] documented as of this encounter Care Teams Shutdown Coordinator Relationship Specialty Start Date End Date Regina Paz MD [address] [place] [id number] PCP - General Internal Medicine 06/09/22 documented as of this encounter
--- OUTSIDE RECORDS SUMMARY | 2025-02-27 10:34 | XMS_ITS | Encounter Summary ---
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 on file Not on file documented as of this encounter Plan of Treatment Upcoming Encounters Date Type Department Care Team (Late st Contact Info) Description 03/24/2025 10:00 AM EDT Office Visit [facility] MEDICAL [address] [place] [address] Regina Paz MD [address] [place] [address] 06/18/2025 8:30 AM EST Office Visit [facility] DENTAL [address] [place] [address] Darron Cedeño 08/12/2025 8:30 AM EDT Office Visit [facility] OPTOMETRY [address] [place] [address] Tessa Randall OD [address] [place] [address] documented as of this encounter Procedures Procedure [...] documented as of this encounter Care Teams Parking Garage Manager Relationship Specialty Start Date End Date Regina Paz MD [address] [place] [address] PCP - General Internal Medicine 06/09/22 documented as of this encounter
--- OUTSIDE RECORDS SUMMARY | 2025-02-27 10:34 | XMS_ITS | Encounter Summary ---
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] documented as of this encounter Care Teams Career Developer Relationship Specialty Start Date End Date Regina Paz MD 73 [place] [address] PCP - General Internal Medicine 06/09/22 documented as of this encounter
--- OUTSIDE RECORDS SUMMARY | 2025-02-27 10:34 | XMS_ITS | Encounter Summary ---
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 file Not on file documented as of this encounter Plan of Treatment Upcoming Encounters Date Type Department Care Team (Late st Contact Info) Description 03/24/2025 10:00 AM EDT Office Visit [facility] MEDICAL [address] [place] [address] Regina Paz MD [address] [place] [address] 06/18/2025 8:30 AM EST Office Visit [facility] DENTAL [address] [place] [address] Darron Cedeño 08/12/2025 8:30 AM EDT Office Visit [facility] OPTOMETRY [address] [place] [address] Tessa Randall, OD [address] [place] [address] documented as of this encounter Procedures Procedure Name Priority Date/Time Associated Diagnosis Comments CT ABDOMEN PELVIS WO CONTRAST Routine 08/11/2023 9:[address] CHEST WO CONTRAST Routine 08/11/2023 8:51 AM EDT documented in this encounter Results * CT Abdomen Pelvis w/o Contrast (08/11/2023 9:26 AM EDT) Anatomical Region Laterality Modality Body, Pelvis, Abdomen Computed T omography Regina Paz MD IMG CT PROCEDURES Final Result * CT Chest [...] documented as of this encounter Care Teams Private Branch Exchange Service Adviser Relationship Specialty Start Date End Date Regina Paz MD [address] [place] [id number] PCP - General Internal Medicine 06/09/22 documented as of this encounter
--- OUTSIDE RECORDS SUMMARY | 2025-02-27 10:34 | XMS_ITS | Encounter Summary ---
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 MEDICAL [address] [place] [address] Regina Paz MD 73 [place] [address] 06/18/2025 8:30 AM EST Office Visit [facility] DENTAL [address] [place] [address] Darron Cedeño 08/12/2025 8:30 AM EDT Office Visit [facility] OPTOMETRY [address] [place] [address] Tessa Randall, OD [address] [place] [address] documented as of this encounter Procedures Procedure [...] documented as of this encounter Care Teams Automatic Profile Sander Operator Relationship Specialty Start Date End Date Regina Pza MD [address] [place] [address] PCP - General Internal Medicine 06/09/22 documented as of this encounter
--- OUTSIDE RECORDS SUMMARY | 2025-02-27 10:34 | XMS_ITS | Clinical Summary ---
Author Organization [employer] Address [address] [place] [address] 7t [place] [address] Care Team Providers Care Assistant Director Of Plant Operations Name Role Phone Regina Paz MD Primary Care Provider [phone] Allergies Active Allergy Reactions Criticality Noted Date [...] MG capsule Take 100 mg by mouth in the morning and 100 mg in the evening. Active sennosides 25 MG tablet Take 1 tablet by mouth Once per day. OTC Active triamcinolone (Nasacort) 55 MCG/ACT nasal inhaler Nasal Allergy 16.5 g 1 02/13/20 23 Active dicyclomine (Bentyl) 20 MG tablet 06/30/19 23 Active hydroxychloroqu ine (Plaquenil) 200 MG tablet RHEUMATOLOGY 11/13/19 24 Active ondansetron (Zofran) 8 MG tabletIndicatio ns:Migraine without aura and without status migrainosus, not intractable Take 1 tablet (8 mg) by mouth every 8 (eight) hours if needed for nausea or vomiting. 90 tablet 2 11/20/19 24 Active metoclopramide (Reglan) 10 MG tablet Take 1 tablet (10 mg) by mouth 3 times daily. Per GI 180 tablet 3 11/20/19 24 Active colchicine 0.6 MG tablet Take 1 tablet (0.6 mg) by mouth 3 times daily. PRN 90 tablet 01/02/20 24 Active omeprazole (PriLOSEC) [address] capsule Take 40 mg by mouth Once per day. 01/19/20 24 Active butalbital-acet aminophen-caffe ine (Esgic) 50-325-40 MG capsuleIndicati ons:Abdominal migraine, not intractable Take 1 capsule by mouth every 4 (four) hours if needed for headaches. 180 capsule 08/13/19 25 026 Active Compro 25 MG suppositoryIndi cations:Abdomin al migraine, not intractable Insert 1 suppository (25 mg) into the rectum every 8 (eight) hours if needed for nausea or vomiting. 12 suppository 2 08/23/19 25 Active SUMAtriptan (Imitrex) 20 MG/ACT nasal sprayIndication s:Migraine without aura and without status migrainosus, not intractable USE 1 SPRAY IN NOSTRIL(S) ONCE DAILY NEEDED FOR HEADACHE 6 each 10/22/19 25 Active verapamil ER (Verelan) 120 MG 24 hr capsule Take 120 mg by mouth at bedtime. PER ER TAYLOR (CARDIOLOGY )Do not crush or chew. Active cyclobenzaprine (Flexeril) 10 MG tabletIndicatio ns:Migraine without aura and without status migrainosus, not intractable Take 1 tablet (10 mg) by mouth 2 times daily. 180 tablet 1 11/05/19 25 Active metoprolol succinate XL (Toprol-XL) 50 MG 24 hr tablet Take 1 tablet by mouth Once per day. 11/07/19 25 Active sucralfate (Carafate) 1 GM/10ML suspension 07/25/19 25 Active rosuvastatin (Crestor) 10 MG tablet TAKE 1 TABLET BY MOUTH IN THE MORNING 90 tablet 12/09/19 25 Active LORazepam (Ativan) 1 MG tabletIndicatio ns:Primary insomnia,Anxiet y disorder due to general medical condition with panic attack Take 1 tablet (1 mg) by mouth if needed in the morning and at bedtime for anxiety for up to 28 days. PRN 54 tablet 12/09/19 25 Active acyclovir (Zovirax) 400 MG tablet TAKE 1 TABLET BY MOUTH TWICE DAILY NEEDED FOR HERPES LESIONS FOR 7 DAYS 60 tablet 12/30/19 25 Active Kineret 100 MG/0.67ML injection 01/03/20 25 Active minoxidil (Rogaine) 2 % external solution Apply topically 2 times daily. Active Active Problems Problem Noted Date Diagnosed [...] Encounters Date Type Department Care Team Description 02/12/2025 12:00 PM EDT Office Visit [facility] OPTOMETRY [address] [place] [address] Tessa Randall, OD Glaucoma suspect of both eyes (Primary Dx) 02/08/2025 Travel 01/16/2025 Orders Only [facility] Information Management [address] [place] [address] Regina Paz MD 01/15/2025 8:00 AM EDT Office Visit [facility] MEDICAL [address] [place] [address] Regina Paz MD Autoimmune disorder (CMS/HCC) (Primary Dx); History of pericarditis; Chronic fatigue; Post-COVID syndrome; Concern about memory; Migraine without aura and without status migrainosus, not intractable 01/07/2025 10:00 AM EDT Office Visit [facility] OPTOMETRY [address] [place] [address] Tessa Randall, OD High risk medication use (Primary Dx); Keratitis sicca, bilateral; Glaucoma suspect of both eyes; Presbyopia of both eyes 01/06/2025 Travel 12/28/2024 Refill [facility] MEDICAL [address] [place] [address] Regina Paz MD 12/22/2024 12:00 PM EDT Telemedicine [address] [address] Regina Paz MD Autoimmune disorder (CMS/HCC) (Primary Dx); Primary insomnia; History of pericarditis; Other forms of systemic lupus erythematosus, unspecified organ involvement status (CMS/HCC); Anxiety disorder due to general medical condition with panic attack; Migraine without aura and without status migrainosus, not intractable 12/12/[address] [address] Regina Paz MD request records 12/11/2024 8:30 AM EDT Office Visit [facility] DENTAL [address] [place] [address] Darron Cedeño Stage 2 grade B generalized periodontitis per AAP/EFP 2017 classification (Primary Dx); Dental calculus; Encounter for dental examination 12/06/[address] [address] Regina Paz MD 12/04/2024 11:30 AM EDT Office Visit [address] [address] Isabelle Calvillo CNP Autoimmune disorder (CMS/HCC) (Primary Dx); History of pericarditis; Migraine without aura and without status migrainosus, not intractable; Chronic fatigue; Multinodular thyroid; Other forms of systemic lupus erythematosus, unspecified organ involvement status (CMS/HCC); Concern about memory; Pain of multiple sites; SVT (supraventricular tachycardia) (CMS/HCC); Trace mitral regurgitation by prior echocardiogram; Low serum cortisol level; Post-COVID syndrome 12/04/[address] [address] Isabelle Calvillo CNP medication use 12/04/2024 Travel 11/30/[address] [address] Isabelle Calvillo CNP appointment from Last 3 Months Immunizations Immunization Administration [...] 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 on file Not on file Last Filed Vital Signs Vital Sign Reading Time Taken Comments Blood Pressure 114/84 01/15/2025 8:09 AM EDT Pulse 71 01/15/2025 8:09 AM EDT Temperature 35.9 C (96.6 F) 01/15/2025 8:09 AM EDT Respiratory Rate 18 01/15/2025 8:09 AM EDT Oxygen Saturation 99% 01/15/2025 8:09 AM EDT Inhaled Oxygen Concentration - - Weight 70.8 kg (156 lb) 01/15/2025 8:09 AM EDT Height 158.8 cm (5' 2.5 ) 01/15/2025 8:09 AM EDT Body Mass Index 28.08 01/15/2025 8:09 AM EDT Plan of Treatment Upcoming Encounters Date Type Department Care Team (Late st Contact Info) Description 03/24/2025 10:00 AM EDT Office Visit [facility] MEDICAL [address] [place] [address] Regina Paz MD [address] [place] [address] 06/18/2025 8:30 AM EST Office Visit [facility] DENTAL [address] [place] [address] Darron Cedeño 08/12/2025 8:30 AM EDT Office Visit [facility] OPTOMETRY [address] [place] [address] Tessa Randall OD [address] [place] [address] Health Maintenance Due Date Last Done Comments CT Colonography 1963 Colonoscopy 1963 Colorectal Cancer Screening 1963 FIT DNA/Cologuard 1963 FIT 1963 FOBT 1963 HIV Screening 1965 Sigmoidoscopy 1963 HPV/Cotest 09/14/1993 Zoster Vaccines (1 of 2) 09/14/2013 Cervical Cancer Screening 07/16/2023 Pap Smear 07/16/2023 07/16/2020 COVID-19 Vaccine ( season) 2025 05/17/2023, 03/03/2022, 02/25/2021, Additional history exists Influenza Vaccine (#1) 2025 , 03/16/2023, 03/03/2022, Additional history exists Dental X-Ray: Full Mouth 06/02/2025 06/01/2022, 03/12/2015 Depression Monitoring 06/06/2025 12/04/2024, 025 Dental X-Ray: Bitewings 06/07/2025 06/06/19 25, 05/22/2023, 06/01/2022, Additional history exists Dental Oral Exam 06/14/2025 12/11/2024, 02/2025, 05/22/2023, Additional history exists Dental Prophylaxis 06/14/2025 12/11/2024, 0 06/06/2024, 12/04/2023, Additional history exists Alcohol/Substance Use Screening 06/27/2025 06/27/2024 SDOH Screening 06/27/2025 06/27/2024 Disability Screening 11/04/2025 11/04/2024 Tobacco Screening 02/12/2026 02/12/2025 Mammogram 02/28/2026 02/29/2024, 08/26, 09/08/2021, Additional history exists Lipid Panel 06/10/2029 06/10/2024, 07/26, 04/23/2023, Additional history exists DTaP/Tdap/Td Vaccines (5 - Td or Tdap) 09/09/2031 09/08/2021, 04/16/2018, 11/15/2010, Additional history exists Hepatitis B Vaccines Aged Out 01/15/1993, 12/20/1991, 07/20/1991 No longer eligible based on patient's age to complete this topic Hepatitis C Screening Completed 05/15/2023 Pneumococcal Vaccine: 50+ Years Completed 04/08/2024 RSV Patients and Patients Aged 60 years or older Completed 06/02/2024 HIB Vaccines Aged Out No longer eligi [...] Procedure Name Priority Date/Time Associated Diagnosis Comments AUTOMATED VISUAL FIELD, EXTENDED - OU - BOTH EYES Routine 02/12/2025 Glaucoma suspect of both eyes OCT, OPTIC NERVE - OU - BOTH EYES Routine 01/07/2025 Glaucoma suspect of both eyes PULMONARY FUNCTION TESTING Routine 01/01/2025 9:14 AM EDT ORAL HYGIENE INSTRUCTIONS Routine 12/11/2024 8:30 AM EDT Full PROPHYLAXIS - ADULT Routine 12/11/2024 8:30 AM EDT PERIODIC ORAL EVALUATION - ESTABLISHED PATIENT Routine 12/11/2024 8:30 AM EDT LIPID PANEL, STANDARD Routine 06/10/2024 7:55 AM EST BITEWINGS - 4 RADIOGRAPHIC IMAGES Routine 06/06/2024 9:20 AM EST BI MAMMOGRAM SCREENING BILATERAL Routine 02/29/2024 3:34 PM EDT INTRAORAL - COMPLETE SERIES OF RADIOGRAPHIC IMAGES Routine 06/01/2022 10:00 AM EST Encounter for dental examination HM PAP/HPV Routine 07/16/2020 from Last 3 Months or Most Recently Relevant to Health Maintenance Results * Automated Visual Field, Extended - OU - Both Eyes (02/12/2025) Impressions Aaronmariely Tessa, OD - 02/12/2025 Right eye (OD): Unreliable due to fixation loss; scattered defects in no particular pattern; establishing baseline Left eye (OS): Reliable; possible early inf and sup arc defect; establishing baseline Result [facility] Tessa Randall OD OPHTH VISUAL FIELD Final Result * OCT, Optic Nerve - OU - Both Eyes (01/07/2025) Impressions Tonia Tessa, OD - 01/07/2025 Right eye (OD): Normal RNFL/GCCStable on change analysis. Left eye (OS): thin RNFL inf/temp quadrant with inf arcuate GCC defect. RNFL is stable on change analysis, GCC -0.81 mincron/yr Tessa Randall OD OPHTH TOMOGRAPHY Final Result * Pulmonary function testing (01/01/2025 9:14 AM EDT) Result [facility] Regina Paz MD PFT ORDERABLES Final Result * Lipid Panel, Standard (06/10/2024 7:55 [...] Most Recently Relevant to Health Maintenance Insurance [facility] Care Teams Assistant Director Of Plant Operations Relationship Specialty Start Date End Date Regina Paz MD [address] [place] [address] [place] [address] PCP - General Internal Medicine 06/09/22
== END 2025-02-27 10:28 | disposition home or self-care (01) ==
PROVIDERS: PCP Internal Medicine; Visit Provider Hospitalist
DX: M32.13 Lung involvement in systemic lupus erythematosus (principal); J98.4 Other disorders of lung; R91.1 Solitary pulmonary nodule; R06.09 Other forms of dyspnea; R53.83 Other fatigue; R79.89 Other specified abnormal findings of blood chemistry
CPT/HCPCS: 99214; G2211

== ENCOUNTER → 2025-02-27 09:52 | Outpatient (BNVA) | payer OTHER, SELFPAY | PROVIDERS: PCP Internal Medicine; Visit Provider Hospitalist | DX: M32.13 Lung involvement in systemic lupus erythematosus (principal); J98.4 Other disorders of lung; R91.1 Solitary pulmonary nodule; R06.09 Other forms of dyspnea; R53.83 Other fatigue; R79.89 Other specified abnormal findings of blood chemistry | CPT/HCPCS: 99212 ==

== ENCOUNTER 2025-03-06 10:04 | Outpatient (REF) | payer OTHER, SELFPAY | END 2025-03-06 10:05 | disposition home or self-care (01) | LOC: HO.MAMMO 10:04 | PROVIDERS: PCP Internal Medicine; Visit Provider Internal Medicine | DX: Z12.31 Encounter for screening mammogram for malignant neoplasm of breast (principal) | CPT/HCPCS: 77063; 77067 ==

== ENCOUNTER → 2025-03-06 10:15 | Outpatient (BNV) | payer OTHER, SELFPAY | PROVIDERS: PCP Internal Medicine; Visit Provider Radiology Body Imaging | DX: Z12.31 Encounter for screening mammogram for malignant neoplasm of breast (principal) | CPT/HCPCS: 77063; 77067 ==

== ENCOUNTER 2025-04-10 07:34 | Outpatient (AMB) | payer OTHER, SELFPAY ==
--- OUTSIDE RECORDS SUMMARY | 2021-01-17 23:00 | XMS_ITS | Encounter Summary ---
Author Organization [facility] Address [address] [place] [address] [place] [phone] Phone Care Team Providers Care Rescue Worker Name Role Phone Regina Paz MD Primary Care Provider [phone] Encounter Details Date Type Department Care Team (Late st Contact Info) Description 01/18/2021 Hospital Encounter [facility] OUTSIDE [address] [place] [phone] Jesus Lance MD [address] [place] [phone] [email or web address] Social History Tobacco Use Types Packs/Day Years [...] 10:21 AM EDT Ric Pierce RN * [place] Suicide Severity Rating Scale (Screener/Recent Self-Report) Question [...] EDT) 05/06/2021 12:3 7 PM EST Impressions [facility] - 05/06/2021 12:41 PM EST Multiple cysts [...] would be an additional diagnostic consideration. 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 It is not the complete legal health record.[facility]
--- OUTSIDE RECORDS SUMMARY | 2021-05-09 | XMS_ITS | Encounter Summary ---
Author Organization [facility] Address [address] [place] [address] [place] [address] Phone Care Team Providers Care Suspect Artist Supervisor Name Role Phone Regina Paz MD Primary Care Provider [phone] Encounter Details Date Type Department Care Team (Late st Contact Info) Description 05/09/2021 Hospital Encounter [facility] OUT[facility] [address] [place] [address] Jesus Lance MD [address] [place] [address] [email or web address] [facility] Social History Tobacco Use Types Packs/Day [...] 10:21 AM EDT Ric Pierce RN * [place] Suicide Severity Rating Scale (Screener/Recent Self-Report) Question [...] NECK OUTSIDE WITH INTERPRETATION OR CONSULT Routine 05/09/2021 12:00 AM EST Thyroglossal duct cyst documented in this encounter Results * MRI Neck Outside With Interpretation Or Consult (05/09/2021 12:00 AM EST) 07/16/2021 12:1 4 PM EST Impressions [facility] - 07/16/2021 12:23 PM EST 1. Decrease in size of 2 cysts within the tongue. The most posterior cyst in the tongue base is not significantly changed. Narrative [facility] - 07/16/2021 12:23 PM EST MRI NECK OUTSIDE WITH INTERPRETATION OR CONSULT TECHNIQUE: Multi-sequence, multi-planar MRI of the neck was performed intravenous contrast. COMPARISON: MRI dated 01/18/2021. FINDINGS: The axial T2-weighted images are compromised by inadvertent water saturation (rather than fat saturation). This limits evaluation for the patient's known cysts on axial images. On coronal images a previously seen anterior cyst measuring 11.6 mm in diameter is significantly reduced in size currently measuring 3 mm in diameter. This lies between the bellies of the geniohyoid muscles. An additional cyst immediately posterior to this has also decreased in size from 7.7 mm to 6 mm. The most posterior cyst, previously measuring 17.7 mm in maximum dimension is not significantly changed, currently measuring 16.6 mm in maximum dimension. No new cyst is identified. No abnormality seen in the nasopharynx or larynx. No significant abnormality is seen in the parotid or submandibular glands. There is a 1.4 cm left thyroid nodule, unchanged. There is no adenopathy in the neck. Procedure Note Augusta Lomeli MD - 07/16/2021 MRI NECK OUTSIDE WITH INTERPRETATION OR CONSULT TECHNIQUE: Multi-sequence, multi-planar MRI of the neck was performedintravenous contrast. COMPARISON: MRI dated 01/18/2021. FINDINGS: The axial T2-weighted images are compromised by inadvertent watersaturation (rather than fat saturation). This limits evaluation for thepatient's known cysts on axial images. On coronal images a previously seen anterior cyst measuring 11.6 mm indiameter is significantly reduced in size currently measuring 3 mm indiameter. This lies between the bellies of the geniohyoid muscles. Anadditional cyst immediately posterior to this has also decreased in sizefrom 7.7 mm to 6 mm. The most posterior cyst, previously measuring 17.7 mmin maximum dimension is not significantly changed, currently zxbhbjcig38.6 mm in maximum dimension. No new cyst is identified. No abnormality seen in the nasopharynx or larynx. No significantabnormality is seen in the parotid or submandibular glands. There is a 1.4 cm left thyroid nodule, unchanged. There is no adenopathy in the neck. IMPRESSION: 1. Decrease in size of 2 cysts within the tongue. The most posterior cystin the tongue base is not significantly changed. 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 It is not the complete legal health record.[facility]
--- OUTSIDE RECORDS SUMMARY | 2021-12-15 23:00 | XMS_ITS | Encounter Summary ---
Author Organization [facility] Address [address] [place] [address] [place] [address] Phone Care Team Providers Care Ethylene Oxide Panelboard Operator Name Role Phone Regina Paz MD Primary Care Provider [phone] Encounter Details Date Type Department Care Team (Late st Contact Info) Description 12/16/2021 Hospital Encounter [facility] OUTSIDE [address] [place] [address] Jesus Lance MD [address] [place] [phone] [email or web address]. [facility] Social History Tobacco Use Types Packs/Day Years [...] 10:21 AM EDT Ric Pierce RN * [place] Suicide Severity Rating Scale (Screener/Recent Self-Report) Question [...] on filedocumented in this encounter Care Teams Ethylene Oxide Panelboard Operator Relationship Specialty Start Date End Date Regina Paz MD [address] [place] [address] [email or web address] PCP - General Internal Medicine 12/27/20 documented as of this encounter Additional Source Comments The information contained in this document represents components of the legal health record. It is not the complete legal health record.[facility]
--- OUTSIDE RECORDS SUMMARY | 2021-12-15 23:05 | XMS_ITS | Encounter Summary ---
Author Organization [facility] Address [address] [place] [address] [place] [phone] Phone Care Team Providers Care Vp Securities Name Role Phone Regina Paz MD Primary Care Provider [phone] Encounter Details Date Type Department Care Team (Late st Contact Info) Description 12/16/2021 12:05 AM EDT Hospital Encounter [facility] OUTSIDE [address] [place] [address] Jesus Lance MD [address] [place] [address] [email or web address] Social History Tobacco Use [...] 10:21 AM EDT Ric Pierce RN * [place] Suicide Severity Rating Scale (Screener/Recent Self-Report) Question [...] glands documented in this encounter Care Teams Vp Securities Relationship Specialty Start Date End Date Regina Paz MD [address] [place] [phone] [email or web address] PCP - General Internal Medicine 12/27/20 documented as of this encounter Additional Source Comments The information contained in this document represents components of the legal health record. It is not the complete legal health record.[facility]
--- NOTE | 2025-04-10 07:36 | A.OFFVIS_ITS ---
Vital Signs 04/10/25 07:43 Height 5 ft 2 in Weight 157 lb BMI 28.7 BP 115/72 Blood Pressure Location Lt brachial Position Sitting Pulse 86 Pulse Source Pulse Oximeter Pulse Oximetry (%) 98 Oxygen Delivery Method Room Air Intake Visit Reasons: f/u idiopathic pericarditis Intake Note: Patient presents for Idiopathic Pericarditis follow up. Allergies pollen extracts Allergy (Intermediate, Verified 04/10/25 07:41) Runny Nose atorvastatin Allergy (Mild, Verified 04/10/25 07:41) muscle pain blue dye Allergy (Mild, Verified 04/10/25 07:41) Unknown iodine Allergy (Mild, Verified 04/10/25 07:41) Itching red dye Allergy (Mild, Verified 04/10/25 07:41) Unknown tree and shrub pollen Allergy (Mild, Verified 04/10/25 07:41) Nasal congestion erythromycin base Allergy (Verified 04/10/25 07:41) Nausea and Vomiting azathioprine Adverse Reaction (Severe, Verified 04/10/25 07:41) vomiting and diarrhea stevioside (From Stevia) Adverse Reaction (Verified 04/10/25 07:41) Abdominal Pain green dye Allergy (Severe, Uncoded 06/19/24 08:54) Headache molds and smuts Allergy (Severe, Uncoded 06/19/24 08:54) hadache HPI Comments Details: Patient is a 59-year-old female with history of migraines, hyperlipidemia, multinodular thyroid and recurrent idiopathic pericarditis here today for follow up Interval History: Patient last seen 10/08/24 with me. - On Anakinra 100mg SC and Hydroxychloroquine 200mg daily - Patient continues to inject herself daily with anakinra and is overall doing well - Had her sonobello procedure and it went well overall - Currently healing - Continues to be asymptomatic - Current complaint is her brain fog. Had a cognitive test, which she is waiting on the results Today - On Anakinra 100mg SC and Hydroxychloroquine 200mg daily - Doing well - Planning to go back to work May 28 - no chest or SOB Rheumatologic History: Initial history: This is a 58 year old female previously diagnosed with lupus by Dr. Sorto who presents for follow-up. Over the last year patient presented to the hospital multiple times for pericarditis. She has been on multiple doses of prednisone. Last dose of prednisone was October 06. Patient does not want to go back to taking prednisone due to significant weight gain. She has lost some weight since she stopped the prednisone. She stated that colchicine was started by her wool dyer at [facility] with some improvement. She stated that hydroxychloroquine has generally helped her. When she was off of it she felt much worse with worsening fatigue and body aches. Her main complaint today is her chest discomfort, shortness of breath, chest pain especially when taking a deep breath and lying on her back. She sleeps sitting down. She has noted mildly erythematous rash on her extremities and torso. She has mildly cool fingers and toes but never developed any digital ulcers. She denies any fevers. She was evaluated by chaser helper due to recurrent diarrhea and GI symptoms. She was told that she has bowel inflammation and there is some suspicion of IBD. Her pericarditis symptoms and bowel symptoms improve when she is on prednisone. She had a lip biopsy twice and it was negative for Sjogren's. Current Rheumatology Medication(s): Plaquenil 200mg daily Anakinra 100mg SC daily [facility] Medical History (Updated 12/09/24 @ 09:27 by HALEY Lara) Hx of gastritis Pain of multiple sites Pneumonitis Pericardial effusion Acute pericardial effusion Low serum cortisol level Fatigue Pulmonary nodule SVT (supraventricular tachycardia) Dyspnea Esophageal candidiasis Ileitis Abdominal pain Inflammation of small intestine History of anesthesia complications Hx of chest pain Fusion of spine, cervical region TMJ syndrome Cervical radiculopathy Elevated cholesterol Osteoarthritis Hx of migraine headaches Multinodular thyroid Surgical History Hx of shoulder surgery S/P thyroid biopsy H/O colonoscopy History of esophagogastroduodenoscopy (EGD) History of spinal fusion Hx of dilation and curettage Hx of cholecystectomy Hx of tonsillectomy Hx of tubal ligation Family History Mother Diabetes Uterine cancer Hypertension Father Diabetes Hypertension Stroke Family/Other Colon cancer Social History Household Members: Spouse Housing: House Are you a primary respiratory care technician to a significant other at home: No Do you presently have visiting nurse or other home services: No Alcohol intake: never Patient Tobacco Use Status: Former Tobacco user Tobacco use type: Cigarette Cigarettes Per Day: 10 Years Smoked: 5 Substance Use Type: Marijuana service: No Current occupational status: employed Current occupation: right hand dominant Review of Systems Narrative Review of Systems Constitutional: Denies fever, chills, weight loss ENT: Denies vision changes, eye pain or eye redness, dental caries, dry mouth GI: Denies nausea, vomiting, diarrhea, abdominal pain, change in BM Pulm: Denies SOB, BUSTILLOS, hemoptysis, wheezing Cards: Denies chest pain, palpitations Skin: Denies Raynaud's, rash, nail changes, photosensitivity, DEMAND INSPECTOR: Denies headaches, weakness, paresthesias, recurrent falls MSK: as per HPI All other systems reviewed and are unremarkable except noted above Physical Exam Exam Exam: Vital signs reviewed Physical Examination CONSTITUITIONAL Patient alert and cooperative. Well appearing and in no apparent painful distress MSK Hands * Right Hand: Able to make a fist. No swelling or tenderness to palpation of the MCPs, PIPs or DIPs. * Left Hand: Able to make a fist. No swelling or tenderness to palpation of the MCPs, PIPs or DIPs. Wrists * Right Wrist: Full ROM to flexion and extension. No swelling or TTP * Left Wrist: Full ROM to flexion and extension. No swelling or TTP Elbows * Right Elbow: Full ROM. No swelling or TTP. No TTP of the medial epicondyle. No TTP of the lateral epicondyle * Left Elbow: Full ROM. No swelling or TTP. No TTP of the medial epicondyle. No TTP of the lateral epicondyle Shoulders * Right shoulder: Full ROM. No swelling noted. No TTP of the AC joint. No TTP of the subacromial bursa. No TTP of the posterior shoulder * Left shoulder: Full ROM. No swelling noted. No TTP of the AC joint. No TTP of the subacromial bursa. No TTP of the posterior shoulder Knees * Right knee: Full ROM. No swelling noted. No TTP of the knee joint line. No TTP of pes anserine bursa * Left knee: Full ROM. No swelling noted. No TTP of the knee joint line. No TTP of pes anserine bursa. Ankles * Right ankle: Good ankle dorsiflexion and plantar flexion. No swelling. No TTP of the ankle joint * Left ankle: Good ankle dorsiflexion and plantar flexion. No swelling. No TTP of the ankle joint Feet * Right foot: Negative squeeze test * Left foot: Negative squeeze test Tender points? * No tenderness to palpation of the bilateral trapezius, supraspinatus, anterior costochondral junctions, bilateral suboccipital muscle insertions SKIN No rashes Vital Signs: Last Vital Signs Pulse 86 04/10/25 07:43 BP 115/72 04/10/25 07:43 Pulse Ox 98 04/10/25 07:43 Oxygen Delivery Method Room Air 04/10/25 07:43 BMI result Body Mass Index 28.7 Results Reviewed Results Reviewed: 03/20/25 [facility] WBC 6.8 Hb 14.2 Plt 174 BUN 18 Cr 0.90 eGFR 73 AST 28 ALT 56 ESR 7 CRP 3 T spot Negative ECHO 05/2024 Conclusions: - Essentially normal study Findings Left Ventricle Normal left ventricular size, thickness, and systolic function. The visually estimated ejection fraction is between 55-60%. Spectral Doppler is indicative of a normal filling pattern. Right Ventricle Normal right ventricular cavity size and systolic function. Atria Both atria are normal in size. There is no evidence of interatrial shunt. Aortic Valve Normal aortic valve structure and function. There is no aortic valve stenosis. There is no aortic valve regurgitation. Mitral Valve Likely normal mitral valve structure and function. There is trace mitral valve regurgitation. There is no mitral valve stenosis. Pulmonic Valve The pulmonic valve was not well visualized. Tricuspid Valve Likely normal tricuspid valve structure and function. There is trace tricuspid valve regurgitation. The right ventricular systolic pressure is normal. The right ventricular systolic pressure is 18 mmHg. Normal right atrial pressure. There is no evidence of pulmonary hypertension. Venous The inferior vena cava is normal in size and collapses greater than 50% with inspiration. Pericardium/Pleural There is no evidence of pericardial effusion. Assessment & Plan Assessment & Plan (1) Pericarditis associated with systemic lupus erythematosus: Comment: Chest pain and pericardial fluid, August 2022. Recurrence March 2023, July 2023 Hydroxychloroquine minimal effective Colchicine minimally effective - stopped 04/2024 Azathioprine not tolerated kineret 11/2023 effective Code(s): I31.9 - Disease of pericardium, unspecified; M32.12 - Pericarditis in systemic lupus erythematosus Category: Medical Qualifiers: Chronicity: chronic Chronic pericarditis complication: unspecified complication status Qualified Code(s): M32.12 - Pericarditis in systemic lupus erythematosus Plan: #Idiopathic Pericarditis Patient is a 59-year-old female with recurrent pericarditis in the setting of a positive BRAYDON without any other signs or symptoms concerning for lupus. Her last admission to the hospital was in September 2023. Started on anakinra 11/2023 and since then has been stable. Doing well on the anakinra no intolerable side effects Plan to start tapering Anakinra 11/2025 Plan - Anakinra 100mg SC daily - Plaquenil 200mg daily - f/u CT chest from cardiology - RTC 6 months - Labs before visit: CBC, CMP, ESR, CRP (2) Long-term use of immunosuppressant medication: Code(s): Z79.60 - watermelon inspector (current) use of unspecified immunomodulators and immunosuppressants Category: Medical Plan: #alf current use of Anakinra (Kineret) Risks and benefits of anakinra in the management of patient's rheumatic disease is discussed Benefits include reduced flares and improved disease control Wrists include upset stomach, dry mouth, drowsiness, Wheeler Elan syndrome, hallucinations and increased risk of infections and malignancy Monitoring every 3 months with CBC, CMP, ESR, CRP. Every 6 months-1 year hepatitis panel and T spot (3) Encounter for monitoring of hydroxychloroquine therapy: Code(s): Z51.81 - Encounter for therapeutic drug level monitoring; Z79.899 - Other senior living (current) drug therapy Plan: #Long-term Use of Hydroxychloroquine Discussed with patient the risks and benefits of hydroxychloroquine in managing the rheumatic condition Benefits include: - Reduced pain, reduce mortality, maintenance of remission and reduction of flares Risks include: - GI upset, skin hyperpigmentation, retinal toxicity (especially after more than 5 years of use), myopathy Advised yearly ophthalmology visits Plan I spent 30 minutes reviewing the record and labs, taking a history, examining the patient, discussing the treatment plan including the plan to wean and documenting in the medical record Coding Level of Care Code Est Pt Level 4 (03382) Complex EM visit Add On G2211 Diagnoses Chronic pericarditis associated with systemic lupus erythematosus (SLE), u nspecified complication status M32.12 Chronicity: chronic Chronic pericarditis complication: unspecified complication status Long-term use of immunosuppressant medication Z79.60 Encounter for monitoring of hydroxychloroquine therapy Z51.81; Z79.899
--- OUTSIDE RECORDS SUMMARY | 2025-04-10 07:36 | XMS_ITS | Encounter Summary ---
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 Not on file Not on file documented as of this encounter Plan of Treatment Upcoming Encounters Date Type Department Care Team (Late st Contact Info) Description 04/22/2025 8:30 AM EST Office Visit [facility] OPTOMETRY [address] [place] [address] Tessa Randall, JORGITO [address] [place] [address] 06/18/2025 8:30 AM EST Office Visit [facility] DENTAL [address] [place] [address] Darron Cedeño 08/12/2025 8:30 AM EDT Office Visit [facility] OPTOMETRY [address] [place] [address] Tessa Randall, OD [address] [place] [address] 09/25/2025 9:30 AM EDT Office Visit [facility] MEDICAL [address] [place] [address] Regina Paz MD [address] [place] [address] documented as of this encounter Procedures Procedure [...] documented as of this encounter Care Teams Supply Chain Logistics Manager Relationship Specialty Start Date End Date Regina Paz MD [address] [place] [id number] PCP - General Internal Medicine 06/09/22 documented as of this encounter
--- OUTSIDE RECORDS SUMMARY | 2025-04-10 07:36 | XMS_ITS | Encounter Summary ---
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 OPTOMETRY [address] [place] [address] Tessa Ranadll, OD [address] [place] [address] 06/18/2025 8:30 AM EST Office Visit [facility] DENTAL [address] [place] [address] Darron Cedeño 08/12/2025 8:30 AM EDT Office Visit [facility] OPTOMETRY [address] [place] [address] Tessa Randall, OD [address] [place] [address] 09/25/2025 9:30 AM EDT Office Visit [facility] MEDICAL [address] [place] [address] Regina Paz MD [address] [place] [address] documented as of this encounter Procedures Procedure Name Priority Date/Time Associated Diagnosis Comments MAMMO SCREENING BILATERAL Routine 03/06/2025 10:46 AM EDT documented in this encounter Results * MAMMO SCREENING BILATERAL (03/06/2025 10:46 AM EDT) Anatomical Region Laterality Modality Mammography Regina Paz MD IMG BI PROCEDURES Final Result documented in this encounter Visit Diagnoses Not on filedocumented in this encounter Additional Health Concerns Assessment Noted Time PHQ-9 Depression Total Score: 9 12/05/19 25 11:43 AM EDT documented as of this encounter Care Teams Glass Processing Worker Relationship Specialty Start Date End Date Regina Paz MD [address] [place] [address] PCP - General Internal Medicine 06/09/22 documented as of this encounter
--- OUTSIDE RECORDS SUMMARY | 2025-04-10 07:36 | XMS_ITS | Encounter Summary ---
Author Organization 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 documented in this encounter Plan of Treatment Upcoming Encounters Date Type Department Care Team (Late st Contact Info) Description 04/22/2025 8:30 AM EST Office Visit [facility] OPTOMETRY [address] [place] [address] Tessa Randall OD [address] [place] [address] 06/18/2025 8:30 AM EST Office Visit [facility] DENTAL [address] [place] [address] Darron Cedeño 08/12/2025 8:30 AM EDT Office Visit [facility] OPTOMETRY [address] [place] [address] Tessa Randall OD [address] [place] [address] 09/25/2025 9:30 AM EDT Office Visit [facility] MEDICAL [address] [place] [address] eRgina Paz MD [address] [place] [address] documented as of this encounter Visit Diagnoses Not on filedocumented in this encounter Additional Health Concerns Assessment Noted Time PHQ-9 Depression Total Score: 9 12/05/19 25 11:43 AM EDT documented as of this encounter Care Teams Network Operations Specialist Relationship Specialty Start Date End Date Regina Paz MD [address] [place] [address] PCP - General Internal Medicine 06/09/22 documented as of this encounter
--- OUTSIDE RECORDS SUMMARY | 2025-04-10 07:36 | XMS_ITS | Encounter Summary ---
Author Organization [facility] Address [address] [place] [address] Care Team Providers Care Facing End Trimmer Name Role Phone Regina Paz Primary Care Provider [phone] Reason for Visit * Reason Onset Date Comments PAC RX Refill 10/08/2023 Dr. Abad Borrego calling from [facility] as she needs clarification re: quantity of how many capsule should patient be taking daily. Encounter Details Date Type Department Care Team (Late st Contact Info) Description 10/08/2023 Telephone [facility] [address] [place] [address] Telephone Intake, Staff PAC RX Refill (Dr. Abad Borrego calling from [facility] as she needs clarification re: quantity of [...] Dr. Melgoza patient. Salima calling from [facility] as she needs clarification re: quantity of how many capsule should patient be taking daily. Medication name: NALTREXONE 1.5 MG Salima tel #: [phone]. Thank you-PAC documented in this encounter Plan of Treatment Not on file documented as of this encounter Visit Diagnoses Not on filedocumented in this encounter Care Teams Facing End Trimmer Relationship Specialty Start Date End Date Regina Paz [address] [place] [address] PCP - General Pediatrics 12/21/22 documented as of this encounter
--- OUTSIDE RECORDS SUMMARY | 2025-04-10 07:36 | XMS_ITS | Clinical Summary ---
Author Organization [facility] Address [address] [place] [address] Care Team Providers Care Washing Machine Loader Name Role Phone Regina Paz Primary Care Provider [phone] Allergies Active Allergy Reactions Criticality Noted Date [...] or Pediatric/Adolescent Dosage 01/15/1993,12/20/1991,07/20/1991 Influenza, Injectable, Madin Marion Canine Kidney, Preservative Free, Quadrivalent 03/16/2023 Influenza, [...] Completed 05/15/2023 Procedures * Due to [place] [employer] law, this organization might not be sharing negative HIV tests. Procedure Name Priority Date/Time Associated Diagnosis Comments HEPATITIS C ANTIBODY W/REFLEX TO HCV RNA, QUANTITATIVE PCR Routine 05/15/2023 10:55 AM EST Pericarditis, unspecified chronicity, unspecified type from Last 3 Months or Most Recently Relevant to Health Maintenance Results * Due to [place] [employer] law, this organization might not be sharing negative HIV tests. * Hepatitis C Antibody w/Reflex to HCV RNA, Quantitative PCR (05/15/2023 10:55 AM EST) Hepatitis C Antibody NON-REACT LIOR NON-REACT LIOR 05/15/2023 10:28 PM EST [facility] Comment: HCV antibody was non-reactive. There is no laboratory evidence of HCV infection. In most cases, no further action is required. However, if recent HCV exposure is suspected, a test for HCV RNA (test code 26125) is suggested. For additional information please refer to http://education.[employer]/faq/JJF47u7 (This link is being provided for informational/ educational purposes only.) Blood Structure of peripheral vein / Unknown Venipuncture / Unknown 05/15/2023 10:55 AM EST 05/15/2023 11:27 AM EST [facility] 05/15/2023 10:28 PM EST [facility] Received Date: us Violeta Quintana MD LAB BLOOD ORDERABLES Final Re sult [facility] [address] [facility] [address]rd [address], [place] [address], [place] [phone] [facility] [address] [facility] 3rd [address], [place] [address], [place] [phone] from Last 3 Months or Most Recently Relevant to Health Maintenance Insurance [place] [address] , [place] [address] Care Teams Washing Machine Loader Relationship Specialty Start Date End Date Regina Paz [address] [place] [address] PCP - General Pediatrics 12/21/22
--- OUTSIDE RECORDS SUMMARY | 2025-04-10 07:37 | XMS_ITS | Encounter Summary ---
Author Organization [employer] Address [address] [place] [address] 7 [place] [address] Care Team Providers Care Shipper And Receiving Name Role Phone Regina Paz MD Primary Care Provider [phone] Encounter Details Date Type Department Care Team [...] Description 04/22/2025 8:30 AM EST Office Visit [facility] OPTOMETRY [address] [place] [address] Tessa Randall, OD [address] [place] [address] 06/18/2025 8:30 AM EST Office Visit [facility] DENTAL [address] [place] [address] Darron Cedeño 08/12/2025 8:30 AM EDT Office Visit [facility] OPTOMETRY [address] [place] [address] Tessa Randall, OD [address] [place] [address] 09/25/2025 9:30 AM EDT Office Visit [facility] MEDICAL [address] [place] [address] Regina Paz MD [address] [place] [address] documented as of this encounter Visit Diagnoses Not on filedocumented in this encounter Care Teams Shipper And Receiving Relationship Specialty Start Date End Date Regina Paz MD [address] [place] [address] PCP - General Internal Medicine 06/09/22 documented as of this encounter
--- OUTSIDE RECORDS SUMMARY | 2025-04-10 07:37 | XMS_ITS | Encounter Summary ---
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 Not on file Not on file documented as of this encounter Plan of Treatment Upcoming Encounters Date Type Department Care Team (Late st Contact Info) Description 04/22/2025 8:30 AM EST Office Visit [facility] OPTOMETRY [address] [place] [address] Tessa Randall, OD [address] [place] [address] 06/18/2025 8:30 AM EST Office Visit [facility] DENTAL [address] [place] [address] Darron Cedeño 08/12/2025 8:30 AM EDT Office Visit [facility] OPTOMETRY [address] [place] [address] Tessa Randall, OD [address] [place] [address] 09/25/2025 9:30 AM EDT Office Visit [facility] MEDICAL [address] [place] [address] Regina Paz MD [address] [place] [address] documented as of this encounter Procedures Procedure Name Priority Date/Time Associated Diagnosis Comments BI MAMMOGRAM SCREENING BILATERAL Routine 02/29/2024 3:34 PM EDT documented in this encounter Results * BI Mammogram Screening Bilateral (02/29/2024 3:34 PM EDT) Anatomical Region Laterality Modality Breast Bilateral Mammography us Regina Paz MD IMG BI PROCEDURES Final Result documented in this encounter Visit Diagnoses Not on filedocumented in this encounter Additional Health Concerns Assessment Noted Time PHQ-9 Depression Total Score: 12 024 9:05 AM EST documented as of this encounter Care Teams Chiropractic Care Relationship Specialty Start Date End Date Regina Paz MD [address] [place] [address] PCP - General Internal Medicine 06/09/22 documented as of this encounter
--- OUTSIDE RECORDS SUMMARY | 2025-04-10 07:37 | XMS_ITS | Encounter Summary ---
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 on file Not on file documented as of this encounter Plan of Treatment Upcoming Encounters Date Type Department Care Team (Late st Contact Info) Description 04/22/2025 8:30 AM EST Office Visit [facility] OPTOMETRY [address] [place] [address] Tessa Randall, OD [address] [place] [address] 06/18/2025 8:30 AM EST Office Visit [facility] DENTAL [address] [place] [address] Darron Cedeño 08/12/2025 8:30 AM EDT Office Visit [facility] OPTOMETRY [address] [place] [address] Tessa Randall, OD [address] [place] [address] 09/25/2025 9:30 AM EDT Office Visit [facility] MEDICAL [address] [place] [address] Regina Paz MD [address] [place] [address] documented as of this encounter Procedures Procedure [...] documented as of this encounter Care Teams Typo Machine Operator Relationship Specialty Start Date End Date Regina Paz MD [address] [place] [address] PCP - General Internal Medicine 06/09/22 documented as of this encounter
--- OUTSIDE RECORDS SUMMARY | 2025-04-10 07:37 | XMS_ITS | Encounter Summary ---
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 Not on file Not on file documented as of this encounter Plan of Treatment Upcoming Encounters Date Type Department Care Team (Late st Contact Info) Description 04/22/2025 8:30 AM EST Office Visit [facility] OPTOMETRY 73 [place] [address] Tessa Randall, OD 73 [place] [address] 06/18/2025 8:30 AM EST Office Visit [facility] DENTAL 73 [place] [address] Darron Cedeño 08/12/2025 8:30 AM EDT Office Visit [facility] OPTOMETRY [address] [place] [address] Tessa Randall, OD 73 [place] [address] 09/25/2025 9:30 AM EDT Office Visit [facility] MEDICAL 73 [place] [address] Regina Paz MD 73 [place] [address] documented as of this encounter Procedures Procedure [...] documented as of this encounter Care Teams Unit Assembler Relationship Specialty Start Date End Date Regina Paz MD [address] [place] [address] PCP - General Internal Medicine 06/09/22 documented as of this encounter
--- OUTSIDE RECORDS SUMMARY | 2025-04-10 07:37 | XMS_ITS | Encounter Summary ---
Author Organization [employer] Address [address] [place] [address] 7 [place] [address] Care Team Providers Care Detonator Assembler Name Role Phone Regina Paz MD Primary Care Provider [phone] Encounter Details Date Type Department Care Team [...] Description 04/22/2025 8:30 AM EST Office Visit [facility] OPTOMETRY 73 [place] [address] Tessa Randall, OD [address] [place] [address] 06/18/2025 8:30 AM EST Office Visit [facility] DENTAL 73 [place] [address] Darron Cedeño 08/12/2025 8:30 AM EDT Office Visit [facility] OPTOMETRY [address] [place] [address] Tessa Randall, OD [address] [place] [address] 09/25/2025 9:30 AM EDT Office Visit [facility] MEDICAL [address] [place] [address] Regina Paz MD 73 [place] [address] documented as of this encounter Visit Diagnoses Not on filedocumented in this encounter Care Teams Detonator Assembler Relationship Specialty Start Date End Date Regina Paz MD 73 [place] [address] PCP - General Internal Medicine 06/09/22 documented as of this encounter
--- OUTSIDE RECORDS SUMMARY | 2025-04-10 07:37 | XMS_ITS | Encounter Summary ---
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 on file Not on file documented as of this encounter Plan of Treatment Upcoming Encounters Date Type Department Care Team (Late st Contact Info) Description 04/22/2025 8:30 AM EST Office Visit [facility] OPTOMETRY [address] [place] [address] Tessa Randall, OD [address] [place] [address] 06/18/2025 8:30 AM EST Office Visit [facility] DENTAL [address] [place] [address] Darron Cedeño 08/12/2025 8:30 AM EDT Office Visit [facility] OPTOMETRY [address] [place] [address] Tessa Randall, OD [address] [place] [address] 09/25/2025 9:30 AM EDT Office Visit [facility] MEDICAL [address] [place] [address] Regina Paz MD [address] [place] [address] documented as of this encounter Procedures Procedure Name Priority Date/Time Associated Diagnosis Comments US THYROID Routine 01/14/2024 10:05 AM EDT documented in this encounter Results * US Thyroid (01/14/2024 10:05 AM EDT) Anatomical Region Laterality Modality Head, Neck Ultrasound us Regina Paz MD IM US PROCEDURES Final Result documented in this encounter Visit Diagnoses Not on filedocumented in this encounter Additional Health Concerns Assessment Noted Time PHQ-9 Depression Total Score: 12 024 9:05 AM EST documented as of this encounter Care Teams Public Health Aides Teacher Relationship Specialty Start Date End Date Regina Paz MD [address] [place] [address] PCP - General Internal Medicine 06/09/22 documented as of this encounter
--- OUTSIDE RECORDS SUMMARY | 2025-04-10 07:37 | XMS_ITS | Encounter Summary ---
Author Organization [facility] Address [address] [place] [address] Phone Care Team Providers Care Development Technical Lead Name Role Phone Regina Paz MD Primary Care Provider [phone] Encounter Details Date Type Department Care Team (Late st Contact Info) Description 11/05/2023 Procedure Pass [facility], Ct Scan - [address] [address] Social History Tobacco Use Types Packs/Day Years [...] 10:21 AM EDT Ric Pierce RN * [place] Suicide Severity Rating Scale (Screener/Recent Self-Report) Question [...] on filedocumented in this encounter Care Teams Development Technical Lead Relationship Specialty Start Date End Date Regina Paz MD [address] [place] [address] [email or web address] PCP - General Internal Medicine 12/27/20 documented as of this encounter Additional Source Comments The information contained in this document represents components of the legal health record. It is not the complete legal health record.[facility]
--- OUTSIDE RECORDS SUMMARY | 2025-04-10 07:37 | XMS_ITS | Encounter Summary ---
Author Organization [facility] Address [address] [place] [address] Phone Care Team Providers Care Sap Security Consultant Name Role Phone Cheryl Day MD Primary Care Provider Regina Chacko MD Primary Care Provider [phone] Encounter Details Date Type Department Care Team (Late st Contact Info) Description 08/23/2018 Ancillary Orders Virtual Department 30 [place] [address] Florentino Alba MD 65 [place] [address] Breast screening Social History Tobacco Use Types [...] unspecified documented in this encounter Care Teams Sap Security Consultant Relationship Specialty Start Date End Date Cheryl Day MD PCP - General 03/13/17 12/26/20 Regina Paz MD 73 [place] [address] PCP - General Internal Medicine 12/27/20 documented as of this encounter Additional Source Comments The information contained in this document represents components of the legal health record. It is not the complete legal health record.[facility]
--- OUTSIDE RECORDS SUMMARY | 2025-04-10 07:37 | XMS_ITS | Encounter Summary ---
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 file documented as of this encounter Plan of Treatment Upcoming Encounters Date Type Department Care Team (Late st Contact Info) Description 04/22/2025 8:30 AM EST Office Visit [facility] OPTOMETRY 73 [place] [address] Tessa Randall, OD 73 [place] [address] 06/18/2025 8:30 AM EST Office Visit [facility] DENTAL 73 [place] [address] Darron Cedeño 08/12/2025 8:30 AM EDT Office Visit [facility] OPTOMETRY 73 [place] [address] Tessa Randall, OD 73 [place] [address] 09/25/2025 9:30 AM EDT Office Visit [facility] MEDICAL 73 [place] [address] Regina Paz MD 73 [place] [address] documented as of this encounter Procedures Procedure [...] Laterality Modality Body, Chest Computed Tomogra phy Regina Paz MD IMG CT PROCEDURES Final Result documented in this encounter Visit Diagnoses Not on filedocumented in this encounter Additional Health Concerns Assessment Noted Time PHQ-9 Depression Total Score: 12 024 9:05 AM EST documented as of this encounter Care Teams Senior Telecommunications Specialist Relationship Specialty Start Date End Date Regina Paz MD [address] [place] [address] PCP - General Internal Medicine 06/09/22 documented as of this encounter
--- OUTSIDE RECORDS SUMMARY | 2025-04-10 07:37 | XMS_ITS | Encounter Summary ---
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 Not on file documented as of this encounter Plan of Treatment Upcoming Encounters Date Type Department Care Team (Late st Contact Info) Description 04/22/2025 8:30 AM EST Office Visit [facility] OPTOMETRY 73 [place] [address] Tessa Randall, OD [address] [place] [address] 06/18/2025 8:30 AM EST Office Visit [facility] DENTAL [address] [place] [address] Darron Cedeño 08/12/2025 8:30 AM EDT Office Visit [facility] OPTOMETRY [address] [place] [address] Tessa Randall, OD [address] [place] [address] 09/25/2025 9:30 AM EDT Office Visit [facility] MEDICAL 73 [place] [address] Regina Paz MD 73 [place] [address] documented as of this encounter Procedures Procedure [...] documented as of this encounter Care Teams Line Analyst Relationship Specialty Start Date End Date Regina Paz MD [address] [place] [address] PCP - General Internal Medicine 06/09/22 documented as of this encounter
--- OUTSIDE RECORDS SUMMARY | 2025-04-10 07:37 | XMS_ITS | Encounter Summary ---
Author Organization [facility] Address [address] [place] [address] Phone Care Team Providers Care Corsetier Name Role Phone Cheryl Day MD Primary Care Provider Regina Chacko MD Primary Care Provider [phone] Encounter Details Date Type Department Care Team (Late st Contact Info) Description 08/02/2017 Ancillary Orders Virtual Department 30 [place] [address] Cheryl Day MD Breast screening Social History [...] unspecified documented in this encounter Care Teams Corsetier Relationship Specialty Start Date End Date Cheryl Day MD PCP - General 03/13/17 12/26/20 Regina Paz MD [address] [place] [address] PCP - General Internal Medicine 12/27/20 documented as of this encounter Additional Source Comments The information contained in this document represents components of the legal health record. It is not the complete legal health record.[facility]
--- OUTSIDE RECORDS SUMMARY | 2025-04-10 07:37 | XMS_ITS | Encounter Summary ---
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 Not on file documented as of this encounter Plan of Treatment Upcoming Encounters Date Type Department Care Team (Late st Contact Info) Description 04/22/2025 8:30 AM EST Office Visit [facility] OPTOMETRY 73 [place] [address] Tessa Randall, JORGITO [address] [place] [address] 06/18/2025 8:30 AM EST Office Visit [facility] DENTAL [address] [place] [address] Darron Ceedño 08/12/2025 8:30 AM EDT Office Visit [facility] OPTOMETRY [address] [place] [address] Tessa Randall, OD [address] [place] [address] 09/25/2025 9:30 AM EDT Office Visit [facility] MEDICAL [address] [place] [address] Regina Paz MD [address] [place] [address] documented as of this encounter Procedures Procedure [...] Blood Venous blood specimen / Unknown Result [facility] Provider MD LAB BLOOD ORDERABLES Laly l Result * B Type Natriuretic Peptide (BNP) (06/11/2024 7:56 AM EST) Blood Venous blood specimen / Unknown Result [facility] MD LAB BLOOD ORDERABLES Laly l Result * DHEA Sulfate (06/10/2024 7:58 AM EST) Blood Venous blood specimen / Unknown Result [facility] Provider MD LAB BLOOD ORDERABLES Laly l Result * Comprehensive Metabolic Panel (06/10/2024 7:55 AM EST) Blood Venous blood specimen / Unknown Result [facility] Provider MD LAB BLOOD ORDERABLES Laly l Result * C-reactive Protein (06/10/2024 7:55 AM EST) Blood Venous blood specimen / Unknown Result [facility] Provider MD LAB BLOOD ORDERABLES Laly l Result * Lipid Panel, Standard (06/10/2024 7:55 AM EST) Blood Venous blood specimen / Unknown Result [facility] Provider MD LAB BLOOD ORDERABLES Laly l Result * Cortisol Random (06/10/2024 7:55 AM EST) Historical Provider LAB BLOOD ORDERABLES Laly l Result * CBC auto differential (06/10/2024 7:55 AM EST) Blood Venous blood specimen / Unknown [facility] Provider MD LAB BLOOD ORDERABLES Laly l Result * Sed Rate by Modified [place] (06/10/2024 7:55 AM EST) Blood Venous blood specimen / Unknown [facility] Provider LAB BLOOD ORDERABLES Laly l Result documented in this encounter Visit Diagnoses Not on filedocumented in this encounter Additional Health Concerns Assessment Noted Time PHQ-9 Depression Total Score: 12 024 9:05 AM EST documented as of this encounter Care Teams Needle Loom Setter Relationship Specialty Start Date End Date Regina Paz MD [address] [place] [address] PCP - General Internal Medicine 06/09/22 documented as of this encounter
--- OUTSIDE RECORDS SUMMARY | 2025-04-10 07:37 | XMS_ITS | Encounter Summary ---
Author Organization [employer] Address [address] [place] [address] 7 [place] [address] Care Team Providers Care Bobbin Winder Name Role Phone Regina Paz MD Primary Care Provider [phone] Encounter Details Date Type Department Care Team [...] Description 04/22/2025 8:30 AM EST Office Visit [facility] OPTOMETRY [address] [place] [address] Tessa Randall, OD [address] [place] [address] 06/18/2025 8:30 AM EST Office Visit [facility] DENTAL [address] [place] [address] Darron Cedeño 08/12/2025 8:30 AM EDT Office Visit [facility] OPTOMETRY [address] [place] [address] Tessa Randall, OD [address] [place] [address] 09/25/2025 9:30 AM EDT Office Visit [facility] MEDICAL [address] [place] [address] Regina Paz MD 73 [place] [address] documented as of this encounter Visit Diagnoses Not on filedocumented in this encounter Care Teams Bobbin Winder Relationship Specialty Start Date End Date Regina Paz MD 73 [place] [address] PCP - General Internal Medicine 06/09/22 documented as of this encounter
--- OUTSIDE RECORDS SUMMARY | 2025-04-10 07:37 | XMS_ITS | Encounter Summary ---
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 Not on file documented as of this encounter Plan of Treatment Upcoming Encounters Date Type Department Care Team (Late st Contact Info) Description 04/22/2025 8:30 AM EST Office Visit [facility] OPTOMETRY [address] [place] [address] Tessa Randall, JORGITO [address] [place] [address] 06/18/2025 8:30 AM EST Office Visit [facility] DENTAL [address] [place] [address] Darron Cedeño 08/12/2025 8:30 AM EDT Office Visit [facility] OPTOMETRY [address] [place] [address] Tessa Randall, OD [address] [place] [address] 09/25/2025 9:30 AM EDT Office Visit [facility] MEDICAL [address] [place] [address] Regina Paz MD [address] [place] [address] documented as of this encounter Procedures Procedure [...] * Cortisol Random (04/17/2024 1:45 PM EST) Historical Provider LAB BLOOD ORDERABLES Laly l Result documented in this encounter Visit Diagnoses Not on filedocumented in this encounter Additional Health Concerns Assessment Noted Time PHQ-9 Depression Total Score: 12 024 9:05 AM EST documented as of this encounter Care Teams Medical Assistant Supervisor Relationship Specialty Start Date End Date Regina Paz MD [address] [place] [address] PCP - General Internal Medicine 06/09/22 documented as of this encounter
--- OUTSIDE RECORDS SUMMARY | 2025-04-10 07:37 | XMS_ITS | Encounter Summary ---
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 Not on file documented as of this encounter Plan of Treatment Upcoming Encounters Date Type Department Care Team (Late st Contact Info) Description 04/22/2025 8:30 AM EST Office Visit [facility] OPTOMETRY [address] [place] [address] Tessa Randall, JORGITO [address] [place] [address] 06/18/2025 8:30 AM EST Office Visit [facility] DENTAL [address] [place] [address] Darron Cedeño 08/12/2025 8:30 AM EDT Office Visit [facility] OPTOMETRY [address] [place] [address] Tessa Randall, OD [address] [place] [address] 09/25/2025 9:30 AM EDT Office Visit [facility] MEDICAL [address] [place] [address] Regina Paz MD [address] [place] [address] documented as of this encounter Procedures Procedure [...] Test - Misc (05/12/2024 7:26 AM EST) Result [facility] Provider MD LAB BLOOD ORDERABLES Laly l Result * Other Reference Test - Misc (05/06/2024 7:32 AM EST) Result [facility] Provider MD LAB BLOOD ORDERABLES Laly l Result * FSH And LH (05/06/2024 7:27 AM EST) Result [facility] Provider MD LAB BLOOD ORDERABLES Laly l Result * Prolactin (05/06/2024 7:27 AM EST) Blood Venous blood specimen / Unknown Result [facility] Provider MD LAB BLOOD ORDERABLES Laly l Result * Other Reference Test - Misc (05/06/2024 7:27 AM EST) Result [facility] Provider MD LAB BLOOD ORDERABLES Laly l Result * DHEA Sulfate (05/06/2024 7:27 AM EST) Blood Venous blood specimen / Unknown Result [facility] Provider MD LAB BLOOD ORDERABLES Laly l Result documented in this encounter Visit Diagnoses Not on filedocumented in this encounter Additional Health Concerns Assessment Noted Time PHQ-9 Depression Total Score: 024 9:05 AM EST documented as of this encounter Care Teams Terminal Makeup Operator Relationship Specialty Start Date End Date Regina Paz MD [address] [place] [address] PCP - General Internal Medicine 06/09/22 documented as of this encounter
--- OUTSIDE RECORDS SUMMARY | 2025-04-10 07:37 | XMS_ITS | Encounter Summary ---
Author Organization [employer] Address [address] [place] [address] 7 [place] [address] Care Team Providers Care Time Recorder Name Role Phone Regina Paz MD Primary Care Provider [phone] Encounter Details Date Type Department Care Team [...] Description 04/22/2025 8:30 AM EST Office Visit [facility] OPTOMETRY [address] [place] [address] Tessa Randall, OD [address] [place] [address] 06/18/2025 8:30 AM EST Office Visit [facility] DENTAL [address] [place] [address] Darron Cedeño 08/12/2025 8:30 AM EDT Office Visit [facility] OPTOMETRY [address] [place] [address] Tessa Randall, OD [address] [place] [address] 09/25/2025 9:30 AM EDT Office Visit [facility] MEDICAL [address] [place] [address] Regina Paz MD [address] [place] [address] documented as of this encounter Visit Diagnoses Not on filedocumented in this encounter Care Teams Time Recorder Relationship Specialty Start Date End Date Regina Paz MD [address] [place] [address] PCP - General Internal Medicine 06/09/22 documented as of this encounter
--- OUTSIDE RECORDS SUMMARY | 2025-04-10 07:37 | XMS_ITS | Encounter Summary ---
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 Not on file documented as of this encounter Plan of Treatment Upcoming Encounters Date Type Department Care Team (Late st Contact Info) Description 04/22/2025 8:30 AM EST Office Visit [facility] OPTOMETRY [address] [place] [address] Tessa Randall, OD 73 [place] [address] 06/18/2025 8:30 AM EST Office Visit [facility] DENTAL [address] [place] [address] Darron Cedeño 08/12/2025 8:30 AM EDT Office Visit [facility] OPTOMETRY [address] [place] [address] Tessa Randall, OD [address] [place] [address] 09/25/2025 9:30 AM EDT Office Visit [facility] MEDICAL [address] [place] [address] Regina Paz MD 73 [place] [address] documented as of this encounter Procedures Procedure Name Priority Date/Time Associated Diagnosis Comments MR NECK SOFT TISSUE ONLY W A ND WO CONTRAST Routine 12/28/2023 Thyroglossal duct cyst documented in this encounter Results * Mr Neck Soft Tissue only w/ and w/o Contrast (12/28/2023) Anatomical Region Laterality Modality Head, Neck Magnetic Resonan ce Regina Paz MD IMG MRI PROCEDURES Final Result documented in this encounter Visit Diagnoses Diagnosis 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
--- OUTSIDE RECORDS SUMMARY | 2025-04-10 07:37 | XMS_ITS | Encounter Summary ---
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 OPTOMETRY [address] [place] [address] Tessa Randall, OD [address] [place] [address] 06/18/2025 8:30 AM EST Office Visit [facility] DENTAL [address] [place] [address] Darron Cedeño 08/12/2025 8:30 AM EDT Office Visit [facility] OPTOMETRY [address] [place] [address] Tessa Randall, OD [address] [place] [address] 09/25/2025 9:30 AM EDT Office Visit [facility] MEDICAL [address] [place] [address] Regina Paz MD 73 [place] [address] documented as of this encounter Procedures Procedure [...] documented as of this encounter Care Teams Coal Or Ore Controller Relationship Specialty Start Date End Date Regina Paz MD [address] [place] [address] PCP - General Internal Medicine 06/09/22 documented as of this encounter
--- OUTSIDE RECORDS SUMMARY | 2025-04-10 07:37 | XMS_ITS | Clinical Summary ---
Author Organization [employer] Address [address] [place] [address] 7t [place] [address] Care Team Providers Care Funding Specialist Name Role Phone Regina Paz MD Primary Care Provider [phone] Allergies Active Allergy Reactions Criticality Noted Date [...] (Carafate) 1 GM/10ML suspension 07/25/19 25 Active LORazepam (Ativan) 1 MG tabletIndicatio [...] solution Apply topically 2 times daily. Active rosuvastatin (Crestor) 10 MG tablet TAKE 1 TABLET BY MOUTH IN THE MORNING 90 tablet 03/10/20 25 Active latanoprost (Xalatan) 0.005 % ophthalmic solutionIndicat ions:Primary open angle glaucoma (POAG) of left eye, mild stage Administer 1 drop into both eyes at bedtime. 2.5 mL 5 03/18/20 25 026 Active Active Problems Problem Noted Date Diagnosed [...] Encounters Date Type Department Care Team Description 04/01/[address] [address] Regina Paz MD immunization records 03/24/2025 10:00 AM EDT Office Visit [address] [address] Regina Paz MD Immunization due 03/23/2025 Results Follow-Up [address] [address] Regina Paz MD QuantiFERON -TB Gold Plus, 1 Tube [[id number]] 03/18/[address] [facility] OPTOMETRY [address] [place] [address] Tessa Randall, OD 03/18/[address] [facility] MEDICAL [address] [place] [address] Regina Paz MD request new labs 03/17/2025 Travel 03/15/2025 Orders Only [facility] Information Management [address] [place] [address] Regina Paz MD 03/08/[address] [facility] MEDICAL [address] [place] [address] Regina Paz MD 02/12/2025 12:00 PM EDT Office Visit [facility] OPTOMETRY [address] [place] [address] Tessa Randall, OD Glaucoma suspect of both eyes (Primary Dx) 02/08/2025 Travel 01/16/2025 Orders Only [facility] Information Management [address] [place] [address] Regina Paz MD 01/15/2025 8:00 AM EDT Office Visit [facility] MEDICAL [address] [place] [address] Regina Paz MD Autoimmune disorder (CMS/HCC) (Primary Dx); History of pericarditis; Chronic fatigue; Post-COVID syndrome; Concern about memory; Migraine without aura and without status migrainosus, not intractable from Last 3 Months Immunizations Immunization Administration Dates Next Due Hep B, Adolescent or Pediatric 01/15/1993,1991,07/20/1991 INFLUENZA VACCINE QUADRIVALE NT RECOMBINANT PRESERVATIVE FREE RIV4 03/03/2022,02/25/2021,03/21/2020 Influenza Injectable Quadriv alant Preservative Free IIV4 MDCK 03/16/2023 Influenza injectable quadriv alent preservative free 03/05/2019,03/08/2018 Influenza, IIV3, injectable 02/08/2024,0 02/23/2016,03/04/2015,2013,02/11/2013,02/06/2012,02/14/2011,0 02/17/2009 MMR 12/12/1991,10/14/1991 Moderna Covid-19 Vaccine 12+ 03/24/2025,05/17/20 23 PPD Test 07/06/2011, 1,2007,1992 Pneumococcal Conjugate PCV [...] 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 file Not on file Not on file Last Filed Vital Signs Vital Sign Reading Time Taken Comments Blood Pressure 114/71 03/24/2025 10:08 AM EDT Pulse 91 03/24/2025 10:08 AM EDT Temperature 37 C (98.6 F) 03/24/2025 10:08 AM EDT Respiratory Rate 16 03/24/2025 10:08 AM EDT Oxygen Saturation 98% 03/24/2025 10:08 AM EDT Inhaled Oxygen Concentration - - Weight 71.2 kg (157 lb) 03/24/2025 10:08 AM EDT Height 158.8 cm (5' 2.5 ) 03/24/2025 10:08 AM ED T Body Mass Index 28.26 03/24/2025 10:08 AM EDT Plan of Treatment Upcoming Encounters Date Type Department Care Team (Late st Contact Info) Description 04/22/2025 8:30 AM EST Office Visit [facility] OPTOMETRY [address] [place] [address] Tessa Randall, OD [address] [place] [address] 06/18/2025 8:30 AM EST Office Visit [facility] DENTAL [address] [place] [address] Darron Cedeño 08/12/2025 8:30 AM EDT Office Visit [facility] OPTOMETRY [address] [place] [address] Tessa Randall, OD [address] [place] [address] 09/25/2025 9:30 AM EDT Office Visit [facility] MEDICAL [address] [place] [address] Regina Paz MD [address] [place] [address] Health Maintenance Due Date Last Done Comments CT Colonography 1963 Colonoscopy 1963 Colorectal Cancer Screening 1963 FIT DNA/Cologuard 1963 FIT 1963 FOBT 1963 HIV Screening 1963 Sigmoidoscopy 1963 HPV/Cotest 09/14/1993 Zoster Vaccines (1 of 2) 09/14/2013 Cervical Cancer Screening 07/16/2023 Pap Smear 07/16/2023 07/16/2020 Dental X-Ray: Full Mouth 06/02/2025 06/01/2022, 12/2015 Depression Monitoring 06/06/2025 12/04/2024, 025 Dental X-Ray: Bitewings 06/07/2025 06/06/19, 05/22/2023, 06/01/2022, Additional history exists Dental Oral Exam 06/14/2025 12/11/2024, 02/2025, 05/22/2023, Additional history exists Dental Prophylaxis 06/14/2025 12/11/2024, 0 06/06/2024, 12/04/2023, Additional history exists Alcohol/Substance Use Screening 06/27/2025 06/27/2024 SDOH Screening 06/27/2025 06/27/2024 Disability Screening 11/04/2025 11/04/2024 Mammogram 02/28/2026 02/29/2024, 08/26, 09/08/2021, Additional history exists Tobacco Screening 03/24/2026 03/24/2025 Lipid Panel 06/10/2029 06/10/2024, 07/26, 04/23/2023, Additional [...] Aged 60 years or older Completed 06/02/2024 Influenza Vaccine Completed 02/18/2025, , 03/16/2023, Additional history exists COVID-19 Vaccine Completed 03/24/2025, , 03/03/2022, Additional history exists HIB Vaccines Aged Out No longer eligi [...] Procedure Name Priority Date/Time Associated Diagnosis Comments C-REACTIVE PROTEIN Routine 03/20/2025 11 :22 AM EDT Autoimmune disorder (CMS/HCC) SED RATE BY MODIFIED WESTERGREN Routine 03/20/2025 11:22 AM EDT Autoimmune disorder (CMS/HCC) CBC WITH AUTO DIFFERENTIAL Routine 03/20/2025 11:22 AM EDT Autoimmune disorder (CMS/HCC) COMPREHENSIVE METABOLIC PANEL Routine 03/20/2025 11:22 AM EDT Autoimmune disorder (CMS/HCC) QUANTIFERON-TB GOLD PLUS (NON ORDERABLE) Routine 03/20/2025 11:21 AM EDT QUANTIFERON(R)-TB GOLD PLUS, 1 TUBE Routine 03/20/2025 11:21 AM EDT Screening examination for infectious disease MAMMO SCREENING BILATERAL Routine 03/06/2025 10:46 AM EDT AUTOMATED VISUAL FIELD, EXTENDED - OU - BOTH EYES Routine 02/12/2025 Glaucoma suspect of both eyes Full PROPHYLAXIS - ADULT Routine 12/11/2024 8:30 [...] Recently Relevant to Health Maintenance Results * (ABNORMAL) CBC auto differential (03/20/2025 11:22 AM EDT) White Blood Cell Count 6.8 3.4 - 10.8 x10E3/uL [facility] [place] Red Blood Cell Count 4.20 3.77 - 5.28 x10E6/uL [facility] Hemoglobin 14.2 11.1 - 15.9 g/dL [facility] Hematocrit 41.6 34.0 - 46.6 % [facility] MCV 99(H) 79 - 97 fL [facility] MCH 33.8(H) 26.6 - 33.0 pg [facility] MCHC 34.1 31.5 - 35.7 g/dL [facility] RDW 12.5 11.7 - 15.4 % [facility] Platelet Count 174 150 - 450 x10E3/uL [facility] Neutrophils 60 Not Estab. % [facility] Lymphocytes 26 Not Estab. % [facility] Monocytes 8 Not Estab. % [facility] Eosinophils 5 Not Estab. % [facility] Basophils 1 Not Estab. % [facility] Absolute Neutrophils 4.1 1.4 - 7.0 x10E3/uL [facility] Absolute Lymphocytes 1.8 0.7 - 3.1 x10E3/uL [facility] [place] Absolute Monocytes 0.6 0.1 - 0.9 x10E3/uL [facility] [place] Absolute Eosinophils 0.3 0.0 - 0.4 x10E3/uL [facility] [place] Absolute Basophils 0.1 0.0 - 0.2 x10E3/uL [facility] Immature Granulocytes 0 Not Estab. % [facility] Immature Grans (Abs) 0.0 0.0 - 0.1 x10E3/uL [facility] [place] Blood Venous blood specimen / Unknown 03/20/2025 11:22 AM EDT 03/20/2025 Narrative Resulting Agency Comment Performed at: - [facility] [place] [address] [place], [place] [id number] Primer Charging Tool Setter: Yi Willett MD, Phone: [phone] Regina Paz MD LAB BLOOD ORDERABLES Final Resul t Performing Organization Address [facility] Co de Phone Number [place] [address] [facility] [address] [place] [address] * Sedimentation rate, automated (03/20/2025 11:22 AM EDT) Sed Rate By Modified Westergren 7 0 - 40 mm/hr [facility] [place] Blood Venous blood specimen / Unknown 03/20/2025 11:22 AM EDT 03/20/2025 Narrative Resulting Agency Comment Performed at: - [facility] [place] [id number] Primer Charging Tool Setter: Yi Willett MD, Phone: [phone] Regina Paz MD LAB BLOOD ORDERABLES Final Resul t Performing Organization Address City/[facility]/ZIP Co de Phone Number [facility] 1 [facility] [place] [address] [place] [address] * C-reactive Protein [[id number]] (03/20/2025 11:22 AM EDT) C-Reactive Protein 3 0 - 10 mg/L [facility] [place] Blood Venous blood specimen / Unknown 03/20/2025 11:22 AM EDT 03/20/2025 Narrative Resulting Agency Comment Performed at: - [facility] [place] [address] [place], [place] [id number] Primer Charging Tool Setter: Yi Willett MD, Phone: [phone] us Regina Paz MD LAB BLOOD ORDERABLES Final Resul t [facility] 1 [facility] [place] [address] [place] [address] * (ABNORMAL) Comprehensive metabolic panel (03/20/2025 11:22 AM EDT) Glucose 77 70 - 99 mg/dL [facility] Urea Nitrogen (BUN) 18 8 - 27 mg/dL [facility] Creatinine, Serum 0.90 0.57 - 1.00 mg/dL [facility] [place] eGFR 73 >59 mL/min/1.7 3 [facility] BUN/Creatinine Ratio 20 12 - 28 [facility] Sodium 141 134 - 144 mmol/L [facility] Potassium 4.2 3.5 - 5.2 mmol/L [facility] Chloride 108(H) 96 - 106 mmol/L [facility] Anion Gap 14.0 10.0 - 18.0 mmol/L [facility] Carbon Dioxide 19(L) 20 - 29 mmol/L [facility] Calcium 9.0 8.7 - 10.3 mg/dL [facility] Protein, Total 6.4 6.0 - 8.5 g/dL [facility] Albumin 4.4 3.9 - 4.9 g/dL [facility] Globulin 2.0 1.5 - 4.5 g/dL [facility] Bilirubin, Total 0.3 0.0 - 1.2 mg/dL [facility] Alkaline Phosphatase 60 49 - 135 IU/L [facility] AST 28 0 - 40 IU/L [facility] ALT 56(H) 0 - 32 IU/L [facility] Blood Venous blood specimen / Unknown 03/20/2025 11:22 AM EDT 03/20/2025 Narrative Resulting Agency Comment Performed at: - [facility] [place] [address] [place], [place] [id number] Primer Charging Tool Setter: Yi Willett MD, Phone: [phone] Regina Paz MD LAB BLOOD ORDERABLES Final Resul t Performing Organization Address [facility] Co de Phone Number [facility] [address] [address] * QuantiFERON-TB Gold Plus (03/20/2025 11:21 AM EDT) [facility] QuantiFERON Criteria [facility] Comment: QuantiFERON-TB Gold Plus is a qualitative indirect test for M tuberculosis infection (including disease) and is intended for use in conjunction with risk assessment, radiography, and other medical and diagnostic evaluations. The QuantiFERON-TB Gold Plus result is determined by subtracting the Nil value from either TB antigen (Ag) value. The Mitogen tube serves as a control for the test. QuantiFERON TB1 Ag Value 0.07 IU/mL [facility] QuantiFERON TB2 Ag Value 0.06 IU/mL [facility] Qu[facility]FERON Nil Value 0.01 IU/mL [facility] QuantiFERON Mitogen Value >10.00 IU/mL [facility] 03/20/2025 11:2 1 AM EDT 03/20/2025 Narrative Resulting Agency Comment Performed at: - [address] [id number] Primer Charging Tool Setter: Yi Willett MD, Phone: [phone] Regina Paz MD HISTORICAL/NON ORDERABLE LABS Fi nal Result Performing Organization Address [facility] Co de Phone Number [facility] 1 [facility] [address] [place] [address] * QuantiFERON??-TB Gold Plus, 1 Tube [[id number]] (03/20/2025 11:21 AM EDT) [facility] QuantiFERON Incubation Incubation performed. [facility] Quantiferon -TB Gold Plus, 1 Tube Negative Negative [facility] Comment: No response to M tuberculosis antigens detected. Infection with M tuberculosis is unlikely, but high risk individuals should be considered for additional testing (ATS/IDSA/CDC Clinical Practice Guidelines, 2017). The reference range is an Antigen minus Nil result of <0.35 IU/mL. Chemiluminescence immunoassay methodology Blood Venous blood specimen / Unknown 03/20/2025 11:21 AM EDT 03/20/2025 Narrative Resulting Agency Comment Performed at: 01 - [facility] [address] [id number] Primer Charging Tool Setter: Yi Willett MD, Phone: [phone] Result [facility] Regina Paz MD LAB BLOOD ORDERABLES Final Resul t [facility] [address] [facility] [address] [address] * MAMMO SCREENING BILATERAL (03/06/2025 10:46 AM EDT) Anatomical Region Laterality Modality Mammography Result [facility] Regina Paz MD IMG BI PROCEDURES Final Result * Automated Visual Field, Extended - OU - Both Eyes (02/12/2025) Impressions Tessa Randall, OD - 02/12/2025 Right eye (OD): Unreliable due to fixation loss; scattered defects in no particular pattern; establishing baseline Left eye (OS): Reliable; possible early inf and sup arc defect; establishing baseline Result [facility] Tessa Randall OD OPHTH VISUAL FIELD Final Result * Lipid Panel, Standard (06/10/2024 7:55 AM EST) Blood Venous blood specimen / Unknown Result [facility] Reina Martinez MD LAB BLOOD ORDERABLES Laly l Result * BI Mammogram Screening Bilateral (02/29/2024 3:34 PM EDT) Anatomical Region Laterality Modality Breast Bilateral Mammography Result [facility] Regina Paz MD IM BI PROCEDURES Final Result * Pap Smear (07/16/2020) Pap smear NEGATIVE Result [facility] Historical Michelle [employer] [employer]NCE Final Result from Last 3 Months or Most Recently Relevant to Health Maintenance Insurance [employer] [facility] [employer] [facility] Care Teams Funding Specialist Relationship Specialty Start Date End Date Regina Paz MD [address] [place] [address] [place]NE [place] [address] PCP - General Internal Medicine 06/09/22
--- OUTSIDE RECORDS SUMMARY | 2025-04-10 07:37 | XMS_ITS | Clinical Summary ---
Author Organization [facility] Address [address] [id number] Care Team Providers Care Horticulture Instructor Name Role Phone Regina Paz MD Primary Care Provider [phone] Social History Tobacco Use Types Packs/Day Years [...] age to complete this topic Care Teams Horticulture Instructor Relationship Specialty Start Date End Date Regina Paz MD [address] [place] [address] PCP - General Internal Medicine 09/02/20
--- OUTSIDE RECORDS SUMMARY | 2025-04-10 07:37 | XMS_ITS | Encounter Summary ---
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 OPTOMETRY [address] [place] [address] Tessa Randall, OD [address] [place] [address] 06/18/2025 8:30 AM EST Office Visit [facility] DENTAL [address] [place] [address] Darron Cedeño 08/12/2025 8:30 AM EDT Office Visit [facility] OPTOMETRY [address] [place] [address] Tessa Randall, OD [address] [place] [address] 09/25/2025 9:30 AM EDT Office Visit [facility] MEDICAL [address] [place] [address] Regina Paz MD [address] [place] [address] documented as of this encounter Procedures Procedure [...] Modality Computed Tomogra phy Regina Paz MD IMG CT PROCEDURES Final Result * CT Abdomen [...] documented as of this encounter Care Teams Personnel Representative Relationship Specialty Start Date End Date Regina Paz MD [address] [place] [address] PCP - General Internal Medicine 06/09/22 documented as of this encounter
--- OUTSIDE RECORDS SUMMARY | 2025-04-10 07:37 | XMS_ITS | Encounter Summary ---
Author Organization [employer] Address [address] [place] [address] 7 [place] [address] Care Team Providers Care Counter Sales Representative Name Role Phone Regina Paz MD Primary Care Provider [phone] Encounter Details Date Type Department Care Team [...] Description 04/22/2025 8:30 AM EST Office Visit [facility] OPTOMETRY [address] [place] [address] Tessa Randall, OD [address] [place] [address] 06/18/2025 8:30 AM EST Office Visit [facility] DENTAL [address] [place] [address] Darron Cedeño 08/12/2025 8:30 AM EDT Office Visit [facility] OPTOMETRY [address] [place] [address] Tessa Randall, OD [address] [place] [address] 09/25/2025 9:30 AM EDT Office Visit [facility] MEDICAL [address] [place] [address] Regina Paz MD [address] [place] [address] documented as of this encounter Visit Diagnoses Not on filedocumented in this encounter Care Teams Counter Sales Representative Relationship Specialty Start Date End Date Regina Paz MD [address] [place] [address] PCP - General Internal Medicine 06/09/22 documented as of this encounter
--- OUTSIDE RECORDS SUMMARY | 2025-04-10 07:37 | XMS_ITS | Encounter Summary ---
Author Organization [employer] Address 75 [facility] 7t [place] [address] Care Team Providers Care Fabrics And Material Cutter Name Role Phone Regina Paz MD Primary Care Provider [phone] Encounter Details Date Type Department Care Team (Late st Contact Info) Description 05/07/2024 Orders Only [facility] [address] [place] [address] Regina Paz MD [address] [place] [address] Social History Tobacco Use Types Packs/Day Years [...] Industry Job Start Date Job End Date [employer] Not on file Not on file Not on file documented as of this encounter Plan of Treatment Upcoming Encounters Date Type Department Care Team (Late st Contact Info) Description 04/22/2025 8:30 AM EST Office Visit [facility] OPTOMETRY [address] [place] [address] Tessa Randall, OD [address] [place] [address] 06/18/2025 8:30 AM EST Office Visit [facility] DENTAL [address] [place] [address] Darron Cedeño 08/12/2025 8:30 AM EDT Office Visit [facility] OPTOMETRY [address] [place] [address] Tessa Randall, OD [address] [place] [address] 09/25/2025 9:30 AM EDT Office Visit [facility] MEDICAL [address] [place] [address] Regina Paz MD [address] [place] [address] documented as of this encounter Procedures Procedure [...] documented as of this encounter Care Teams Fabrics And Material Cutter Relationship Specialty Start Date End Date Regina Paz MD [address] [place] [address] PCP - General Internal Medicine 06/09/22 documented as of this encounter
--- OUTSIDE RECORDS SUMMARY | 2025-04-10 07:37 | XMS_ITS | Encounter Summary ---
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 on file Not on file documented as of this encounter Plan of Treatment Upcoming Encounters Date Type Department Care Team (Late st Contact Info) Description 04/22/2025 8:30 AM EST Office Visit [facility] OPTOMETRY [address] [place] [address] Tessa Randall, JORGITO [address] [place] [address] 06/18/2025 8:30 AM EST Office Visit [facility] DENTAL [address] [place] [address] Darron Cedeño 08/12/2025 8:30 AM EDT Office Visit [facility] OPTOMETRY [address] [place] [address] Tessa Randall, OD [address] [place] [address] 09/25/2025 9:30 AM EDT Office Visit [facility] MEDICAL [address] [place] [address] Regina Paz MD [address] [place] [address] documented as of this encounter Procedures Procedure [...] documented as of this encounter Care Teams Station Helper Relationship Specialty Start Date End Date Regina Paz MD [address] [place], [place] [id number] PCP - General Internal Medicine 06/09/22 documented as of this encounter
--- OUTSIDE RECORDS SUMMARY | 2025-04-10 07:37 | XMS_ITS | Encounter Summary ---
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 Not on file Not on file documented as of this encounter Plan of Treatment Upcoming Encounters Date Type Department Care Team (Late st Contact Info) Description 04/22/2025 8:30 AM EST Office Visit [facility] OPTOMETRY [address] [place] [address] Tessa Randall, OD [address] [place] [address] 06/18/2025 8:30 AM EST Office Visit [facility] DENTAL [address] [place] [address] Darron Cedeño 08/12/2025 8:30 AM EDT Office Visit [facility] OPTOMETRY [address] [place] [address] Tessa Randall, OD [address] [place] [address] 09/25/2025 9:30 AM EDT Office Visit [facility] MEDICAL [address] [place] [address] Regina Paz MD [address] [place] [address] documented as of this encounter Visit Diagnoses Not on filedocumented in this encounter Additional Health Concerns Assessment Noted Time PHQ-9 Depression Total Score: 9 12/05/19 25 11:43 AM EDT documented as of this encounter Care Teams Chemical Operations Specialist Relationship Specialty Start Date End Date Regina Paz MD [address] [place] [address] PCP - General Internal Medicine 06/09/22 documented as of this encounter
--- OUTSIDE RECORDS SUMMARY | 2025-04-10 07:37 | XMS_ITS | Clinical Summary ---
Author Organization [facility] Address [address] [facility] [address] [place] [address] Phone Care Team Providers Care Residency Director Name Role Phone Regina Paz MD Primary Care Provider [phone] Allergies No known active allergies Medications rosuvastatin [...] patient's age to complete this topic IPV VACCINES Aged Out No longer eligi ble [...] Most Recently Relevant to Health Maintenance [place] [address] [place] [address] Care Teams Residency Director Relationship Specialty Start Date End Date Regina Paz MD [address] [place] [address] [email or web address] PCP - General Internal Medicine 12/27/20 Additional Source Comments The information contained in this document represents components of the legal health record. It is not the complete legal health record.[facility]
--- OUTSIDE RECORDS SUMMARY | 2025-04-10 07:37 | XMS_ITS | Encounter Summary ---
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 Not on file documented as of this encounter Plan of Treatment Upcoming Encounters Date Type Department Care Team (Late st Contact Info) Description 04/22/2025 8:30 AM EST Office Visit [facility] OPTOMETRY [address] [place] [address] Tessa Randall, JORGITO [address] [place] [address] 06/18/2025 8:30 AM EST Office Visit [facility] DENTAL [address] [place] [address] Darron Cedeño 08/12/2025 8:30 AM EDT Office Visit [facility] OPTOMETRY [address] [place] [address] Tessa Randall, OD [address] [place] [address] 09/25/2025 9:30 AM EDT Office Visit [facility] MEDICAL [address] [place] [address] Regina Paz MD 73 [place] [address] documented as of this encounter Procedures Procedure Name Priority Date/Time Associated Diagnosis Comments ALDOSTERONE Routine 05/06/2024 1:47 PM EST documented in this encounter Results * Aldosterone (05/06/2024 1:47 PM EST) us Historical Provider LAB BLOOD ORDERABLES Laly l Result documented in this encounter Visit Diagnoses Not on filedocumented in this encounter Additional Health Concerns Assessment Noted Time PHQ-9 Depression Total Score: 12 01/19/2 024 9:05 AM EST documented as of this encounter Care Teams Crew Supervisor Relationship Specialty Start Date End Date Regina Paz MD 73 [place] [address] PCP - General Internal Medicine 06/09/22 documented as of this encounter
--- OUTSIDE RECORDS SUMMARY | 2025-04-10 07:37 | XMS_ITS | Encounter Summary ---
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 file [...] AM EST Office Visit [facility] OPTOMETRY [address] [place] [address] Tessa Randall, JORGITO [address] [place] [address] 06/18/2025 8:30 AM EST Office Visit [facility] DENTAL [address] [place] [address] Darron Cedeño 08/12/2025 8:30 AM EDT Office Visit [facility] OPTOMETRY [address] [place] [address] Tessa Randall OD [address] [place] [address] 09/25/2025 9:30 AM EDT Office Visit [facility] MEDICAL [address] [place] [address] Regina Paz MD [address] [place] [address] documented as of this encounter Visit Diagnoses Not on filedocumented in this encounter Additional Health Concerns Assessment Noted Time PHQ-9 Depression Total Score: 9 12/05/19 25 11:43 AM EDT documented as of this encounter Care Teams Health Promotion Manager Relationship Specialty Start Date End Date Regina Paz MD [address] [place] [address] PCP - General Internal Medicine 06/09/22 documented as of this encounter
--- OUTSIDE RECORDS SUMMARY | 2025-04-10 07:37 | XMS_ITS | Encounter Summary ---
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 on file Not on file documented as of this encounter Plan of Treatment Upcoming Encounters Date Type Department Care Team (Late st Contact Info) Description 04/22/2025 8:30 AM EST Office Visit [facility] OPTOMETRY [address] [place] [address] Tessa Randall, OD [address] [place] [address] 06/18/2025 8:30 AM EST Office Visit [facility] DENTAL [address] [place] [address] Darron Cedeño 08/12/2025 8:30 AM EDT Office Visit [facility] OPTOMETRY [address] [place] [address] Tessa Randall, OD [address] [place] [address] 09/25/2025 9:30 AM EDT Office Visit [facility] MEDICAL [address] [place] [address] Regina Paz MD [address] [place] [address] documented as of this encounter Procedures Procedure Name Priority Date/Time Associated Diagnosis Comments BASIC METABOLIC PANEL Routine 11/05/2023 10:[address] ABDOMEN PELVIS W CONTRAST Routine 11/05/2023 10:29 AM EDT ECG 12-LEAD Routine 11/05/2023 10:28 AM EDT documented in this encounter Results * Basic Metabolic Panel (11/05/2023 10:30 AM EDT) Blood Venous blood specimen / Unknown Result Syed Paz MD LAB BLOOD ORDERABLES Final Resul t * CT Abdomen Pelvis w/ Contrast (11/05/2023 10:29 AM EDT) Anatomical Region Laterality Modality Body, Pelvis, Abdomen Computed T omography Result Syed Paz MD IMG CT PROCEDURES Final Result * ECG 12 lead (11/05/2023 10:28 AM EDT) Result Syed Paz MD ECG ORDERABLES Final Result documented in this encounter Visit Diagnoses Not on filedocumented in this encounter Additional Health Concerns Assessment Noted Time PHQ-9 Depression Total Score: 12 06/15/ 024 9:05 AM EST documented as of this encounter Care Teams Softball Winder Relationship Specialty Start Date End Date Regina Paz MD [address] [place] [address] PCP - General Internal Medicine 06/09/22 documented as of this encounter
[2025-04-10 07:43] VITALS: BP 115/72; PULSE 86; O2SAT 98; BMI 28.7
== END 2025-04-10 08:02 | disposition home or self-care (01) ==
LOC: HO.RHES 07:34
PROVIDERS: PCP Internal Medicine; Visit Provider Student in an Organized Health Care Education/Training Program
DX: M32.12 Pericarditis in systemic lupus erythematosus (principal); Z79.60 Long term (current) use of unspecified immunomodulators and immunosuppressants; Z51.81 Encounter for therapeutic drug level monitoring; Z79.899 Other long term (current) drug therapy
CPT/HCPCS: 99214; G2211

== ENCOUNTER → 2025-04-10 07:34 | Outpatient (BNVA) | payer OTHER, SELFPAY | PROVIDERS: PCP Internal Medicine; Visit Provider Student in an Organized Health Care Education/Training Program | DX: M32.12 Pericarditis in systemic lupus erythematosus (principal); Z51.81 Encounter for therapeutic drug level monitoring; Z79.60 Long term (current) use of unspecified immunomodulators and immunosuppressants; Z79.899 Other long term (current) drug therapy | CPT/HCPCS: 99212 ==

== ENCOUNTER 2025-04-22 11:23 | Outpatient (REF) | payer OTHER, SELFPAY ==
--- OUTSIDE RECORDS SUMMARY | 2021-01-17 23:00 | XMS_ITS | Encounter Summary ---
Author Organization [facility] Address [address] [place] [address] [place] [phone] Phone Care Team Providers Care Twisting Operator Name Role Phone Regina Paz MD Primary Care Provider [phone] Encounter Details Date Type Department Care Team (Late st Contact Info) Description 01/18/2021 Hospital Encounter [facility] OUT[facility] [address] [phone] Jesus Lance MD [address] [place] [phone] [email or web address] Social History Tobacco Use Types Packs/Day Years [...] 10:21 AM EDT Ric Pierce RN * [place] Suicide Severity Rating Scale (Screener/Recent Self-Report) Question [...] EDT) 05/06/2021 12:3 7 PM EST Impressions [facility] - 05/06/2021 12:41 PM EST Multiple cysts [...] would be an additional diagnostic consideration. 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 It is not the complete legal health record.[facility]
--- OUTSIDE RECORDS SUMMARY | 2021-05-09 | XMS_ITS | Encounter Summary ---
Author Organization [facility] Address [address] [place] [address] [place] [address] Phone Care Team Providers Care Adjunct Latin Professor Name Role Phone Regina Paz MD Primary Care Provider [phone] Encounter Details Date Type Department Care Team (Late st Contact Info) Description 05/09/2021 Hospital Encounter [facility] OUT[facility] [address] [place] [address] Jesus Lance MD [address] [place] [address] [email or web address] [facility] Social History Tobacco Use Types Packs/Day Years [...] 10:21 AM EDT Ric Pierce RN * [place] Suicide Severity Rating Scale (Screener/Recent Self-Report) Question [...] EST) 07/16/2021 12:1 4 PM EST Impressions [facility] - 07/16/2021 12:23 PM EST 1. Decrease in size of 2 cysts within the tongue. The most posterior cyst in the tongue base is not significantly changed. Narrative [facility] - 07/16/2021 12:23 PM EST MRI [...] maximum dimension is not significantly changed, currently [id number] mm in maximum dimension. 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 PCP - General Internal Medicine 12/27/20 documented as of this encounter Additional Source Comments The information contained in this document represents components of the legal health record. It is not the complete legal health record.[facility]
--- OUTSIDE RECORDS SUMMARY | 2021-12-15 23:00 | XMS_ITS | Encounter Summary ---
Author Organization [facility] Address [address] [place] [address] [place] [address] Phone Care Team Providers Care Fisheries Biologist Name Role Phone Regina Paz MD Primary Care Provider [phone] Encounter Details Date Type Department Care Team (Late st Contact Info) Description 12/16/2021 Hospital Encounter [facility] OUTSIDE [address] [place] [address] Jesus Lance MD [address] [place] [address] [email or web address] Social History Tobacco Use Types Packs/Day [...] 10:21 AM EDT Ric Pierce RN * [place] Suicide Severity Rating Scale (Screener/Recent Self-Report) Question [...] on filedocumented in this encounter Care Teams Fisheries Biologist Relationship Specialty Start Date End Date Regina Paz MD [address] [place] [address] [email or web address] PCP - General Internal Medicine 12/27/20 documented as of this encounter Additional Source Comments The information contained in this document represents components of the legal health record. It is not the complete legal health record.[facility]
--- OUTSIDE RECORDS SUMMARY | 2021-12-15 23:05 | XMS_ITS | Encounter Summary ---
Author Organization [facility] Address [address] [place] [address] [place] [phone] Phone Care Team Providers Care Metal Framer Name Role Phone Regina Paz MD Primary Care Provider [phone] Encounter Details Date Type Department Care Team (Late st Contact Info) Description 12/16/2021 12:05 AM EDT Hospital Encounter [facility] OUT[facility]IDE [address] [place] [address] Jesus Lance MD [address] [place] [address] [email or web address] Social History Tobacco Use Types Packs/Day [...] 10:21 AM EDT Ric Pierce RN * [place] Suicide Severity Rating Scale (Screener/Recent Self-Report) Question Answer Date of Assessment Author 1. Wish to be (Past 1 Month) No 024 10:21 AM EDT Ric Pierce RN 2. Non-Specific Active Suici adrianna Thoughts (Past 1 Month) No 11/05/2023 10:21 AM EDT Ric Pierce RN 6. 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 It is not the complete legal health record.[facility]
--- NOTE | ~2025-04-22 | US_ITS ---
EXAMINATION: US THYROID HISTORY: E04.2 - Nontoxic multinodular goiter TECHNIQUE: Real-time grayscale ultrasound imaging was performed and images were reviewed. COMPARISON: Comparison is made with the prior examination dated 01/14/2024. FINDINGS: SIZE: The right thyroid lobe measures 5.2 x 2.5 x 1.9 cm. The left thyroid lobe measures 5.1 x 2.0 x 2.3 cm. The isthmus measures 4 mm. FLOW: Flow to the gland is normal. ECHOGENICITY: The echotexture of the gland is homogeneous. NODULES: Again seen is an 8 x 6 x 8 mm spongiform nodule at the lower pole of the right thyroid lobe and an 11 x 10 x 10 mm spongiform nodule at the lower pole of the left thyroid lobe. A single solid nodule is noted as described below: Nodule #: 1 Location: Midportion of the left thyroid lobe measuring 1.6 x 1.8 x 1.4 cm (previously 2.0 x 1.7 x 1.5 cm). Shape: Taller than wide (3 points) Margins: Smooth (0 points) Echotexture: Hypoechoic (2 points) Composition: Mostly solid (2 points) Calcifications: None (0 points) Total points: 7 TIRADS: TR5: Highly suspicious. US/US thyroid IMPRESSION: Stable dominant solid nodule in the midportion of the left thyroid lobe. This was previously biopsied under ultrasound guidance on 05/07/2024 demonstrating benign results. ACR TI-RADS Guidelines TR1 (0 points): Benign. No follow-up or biopsy required TR2 (2 points): Not Suspicious. No biopsy or follow up indicated TR3 (3 points): Mildly Suspicious. FNA if >= 2.5 cm, Follow if >= 1.5 cm TR4 (4-6 points): Moderately Suspicious. FNA if >= 1.5 cm, Follow if >= 1.0 cm TR5 (>=7 points): Highly Suspicious. FNA if >= 1.0 cm, Follow if >= 0.5 cm Electronically signed by: Florentino Wiseman MD 04/22/2025 12:31 PM EST TANYA
--- OUTSIDE RECORDS SUMMARY | 2025-04-22 08:30 | XMS_ITS | Encounter Summary ---
Author Organization [employer] Address [address] [place] [address] 7 [place] [address] Care Team Providers Care Protection Manager Name Role Phone Regina Paz MD Primary Care Provider [phone] Reason for Referral * Medications - Authorized Specialty Diagnoses / Procedures Referred By Alta tracey Referred To Contact Diagnoses Primary open angle glaucoma (POAG) of left eye, mild stage Tessa Randall, OD [address] [place] [address] Phone: tel: fax: Referral ID Status Reason Start Date Expiration Date V isits Requested Visits Authorized [id number] Authorized 04/22/2025 04/22/2026 1 1 Encounter Details Date Type Department Care Team (Late st Contact Info) Description 04/22/2025 8:30 AM EST Office Visit [facility] OPTOMETRY [address] [place] [address] Tessa Randall, OD [address] [place] [address] Primary open angle glaucoma (POAG) of left eye, mild stage (Primary Dx) Social History Tobacco Use Types [...] 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 Inadequate intraocular pressure (IOP) response to latanoprost. Switch to Timolol gel 1gtt QAM both eyes (OU). Monitor 2 mo f/u intraocular pressure (IOP) check documented in this encounter Plan of Treatment Upcoming Encounters Date Type Department Care Team (Late st Contact Info) Description 06/19/2025 4:00 PM EST Office Visit [facility] DENTAL [address] [place] [address] Julissa Macedo LLD [address] [place] [address] 08/12/2025 8:30 AM EDT Office Visit [facility] OPTOMETRY [address] [place] [address] Tessa Randall, OD [address] [place] [address] 09/25/2025 9:30 AM EDT Office Visit [facility] MEDICAL [address] [place] [address] Regina Paz MD [address] [place] [address] documented as of this encounter Visit Diagnoses Diagnosis Primary open angle glaucoma (POAG) of left eye, mild stage- Primary documented in this encounter Additional Health Concerns Assessment Noted Time PHQ-9 Depression Total Score: 9 12/05/19 25 11:43 AM EDT documented as of this encounter Care Teams Protection Manager Relationship Specialty Start Date End Date Regina Paz MD [address] [place] [address] PCP - General Internal Medicine 06/09/22 documented as of this encounter
--- OUTSIDE RECORDS SUMMARY | 2025-04-22 14:18 | XMS_ITS | Encounter Summary ---
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 Not on file documented as of this encounter Plan of Treatment Upcoming Encounters Date Type Department Care Team (Late st Contact Info) Description 06/19/2025 4:00 PM EST Office Visit [facility] DENTAL [address] [place] [address] Julissa Macedo LLD [address] [place] [address] 08/12/2025 8:30 AM EDT Office Visit [facility] OPTOMETRY [address] [place] [address] Tessa Randall, JORGITO [address] [place] [address] 09/25/2025 9:30 AM EDT Office Visit [facility] MEDICAL [address] [place] [address] Regina Paz MD [address] [place] [address] documented as of this encounter Procedures Procedure [...] Computed Tomogra phy Regina Paz MD [facility] CT PROCEDURES Final Result * CT Abdomen Pelvis w/ Contrast (10/12/2023 10:31 AM EDT) Anatomical Region Laterality Modality Body, Pelvis, Abdomen Computed T omography us Regina HERRING CT PROCEDURES Final Result documented in this encounter Visit Diagnoses Not on filedocumented in this encounter Additional Health Concerns Assessment Noted Time PHQ-9 Depression Total Score: 12 024 9:05 AM EST documented as of this encounter Care Teams Leach Cell Operator Relationship Specialty Start Date End Date Regina Paz MD [address] [place] [address] PCP - General Internal Medicine 06/09/22 documented as of this encounter
--- OUTSIDE RECORDS SUMMARY | 2025-04-22 14:18 | XMS_ITS | Encounter Summary ---
Author Organization [employer] Address [address] [place] [address] 7t [place] [address] Care Team Providers Care College Teacher Name Role Phone Regina Paz MD Primary Care Provider [phone] Encounter Details Date Type Department Care Team (Late st Contact Info) Description 04/22/2025 Telephone [facility] MEDICAL [address] [place] [address] Shaylee Escudero Social History Tobacco Use Types Packs/Day Years [...] your housing situation today? 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 Not on file documented as of this encounter Miscellaneous Notes * Telephone Encounter - Hansa Pizarro LPN - 04/22/2025 11:10 AM EST Approval Details Authorization number: [id number] Authorized from April 22, 2025 to April 22, 2026 documented in this encounter Plan of Treatment Upcoming Encounters Date Type Department Care Team (Late st Contact Info) Description 06/19/2025 4:00 PM EST Office Visit [facility] DENTAL [address] [place] [address] Julissa Macedo LLD 9 [place] [address] 08/12/2025 8:30 AM EDT Office Visit [facility] OPTOMETRY [address] [place] [address] Tessa Randall OD [address] [place] [address] 09/25/2025 9:30 AM EDT Office Visit [facility] MEDICAL [address] [place] [address] Regina Paz MD [address] [place] [address] documented as of this encounter Visit Diagnoses Not on filedocumented in this encounter Additional Health Concerns Assessment Noted Time PHQ-9 Depression Total Score: 9 12/05/19 25 11:43 AM EDT documented as of this encounter Care Teams College Teacher Relationship Specialty Start Date End Date Regina Paz MD [address] [place] [address] PCP - General Internal Medicine 06/09/22 documented as of this encounter
--- OUTSIDE RECORDS SUMMARY | 2025-04-22 14:18 | XMS_ITS | Encounter Summary ---
Author Organization [employer] Address [address] [place] [address] 7t [place] [address] Care Team Providers Care Director Content Marketing Name Role Phone Regina Paz MD Primary Care Provider [phone] Reason for Visit * Reason Comments Med Refill Encounter Details Date Type Department Care Team (Late st Contact Info) Description 04/17/2025 Refill [place] 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 Not on file documented as of this encounter Plan of Treatment Upcoming Encounters Date Type Department Care Team (Late st Contact Info) Description 06/19/2025 4:00 PM EST Office Visit [facility] DENTAL [address] [place] [address] Julissa Macedo LLD 9 [place] [address] 08/12/2025 8:30 AM EDT Office Visit [facility] OPTOMETRY [address] [place] [address] Tessa Randall, JORGITO [address] [place] [address] 09/25/2025 9:30 AM EDT Office Visit [facility] MEDICAL [address] [place] [address] Regina Paz MD [address] [place] [address] documented as of this encounter Visit Diagnoses Diagnosis Migraine without aura and without status migrainosus, not intractable- Primary documented in this encounter Additional Health Concerns Assessment Noted Time PHQ-9 Depression Total Score: 9 12/05/19 25 11:43 AM EDT documented as of this encounter Care Teams Director Content Marketing Relationship Specialty Start Date End Date Regina Paz MD [address] [place] [address] PCP - General Internal Medicine 06/09/22 documented as of this encounter
--- OUTSIDE RECORDS SUMMARY | 2025-04-22 14:18 | XMS_ITS | Encounter Summary ---
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 file documented as of this encounter Plan of Treatment Upcoming Encounters Date Type Department Care Team (Late st Contact Info) Description 06/19/2025 4:00 PM EST Office Visit [facility] DENTAL [address] [place] [address] Julissa Macedo LLD 9 [place] [address] 08/12/2025 8:30 AM EDT Office Visit [facility] OPTOMETRY [address] [place] [address] Tessa Randall OD [address] [place] [address] 09/25/2025 9:30 AM EDT Office Visit [facility] MEDICAL [address] [place] [address] Regina Paz MD [address] [place] [address] documented as of this encounter Procedures Procedure Name Priority Date/Time Associated Diagnosis Comments MAMMO SCREENING BILATERAL Routine 03/06/2025 10:46 AM EDT documented in this encounter Results * MAMMO SCREENING BILATERAL (03/06/2025 10:46 AM EDT) Anatomical Region Laterality Modality Mammography us Regina Paz MD IMG BI PROCEDURES Final Result documented in this encounter Visit Diagnoses Not on filedocumented in this encounter Additional Health Concerns Assessment Noted Time PHQ-9 Depression Total Score: 9 12/05/19 25 11:43 AM EDT documented as of this encounter Care Teams Electronics Commodity Manager Relationship Specialty Start Date End Date Regina Paz MD [address] [place] [address] PCP - General Internal Medicine 06/09/22 documented as of this encounter
--- OUTSIDE RECORDS SUMMARY | 2025-04-22 14:18 | XMS_ITS | Encounter Summary ---
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 file Not on file documented as of this encounter Plan of Treatment Upcoming Encounters Date Type Department Care Team (Late st Contact Info) Description 06/19/2025 4:00 PM EST Office Visit [facility] DENTAL [address] [place] [address] Julissa Macedo LLD [address] [place] [address] 08/12/2025 8:30 AM EDT Office Visit [facility] OPTOMETRY [address] [place] [address] Tessa Randall, JORGITO [address] [place] [address] 09/25/2025 9:30 AM EDT Office Visit [facility] MEDICAL [address] [place] [address] Regina Paz MD [address] [place] [address] documented as of this encounter Visit Diagnoses Not on filedocumented in this encounter Additional Health Concerns Assessment Noted Time PHQ-9 Depression Total Score: 9 12/05/19 25 11:43 AM EDT documented as of this encounter Care Teams Partition Setter Relationship Specialty Start Date End Date Regina Paz MD [address] [place] [address] PCP - General Internal Medicine 06/09/22 documented as of this encounter
--- OUTSIDE RECORDS SUMMARY | 2025-04-22 14:18 | XMS_ITS | Encounter Summary ---
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 DENTAL [address] [place] [address] Julissa Macedo LLD 9 [place] [address] 08/12/2025 8:30 AM EDT Office Visit [facility] OPTOMETRY [address] [place] [address] Tessa Randall, JORGITO 73 [place] [address] 09/25/2025 9:30 AM EDT Office Visit [facility] MEDICAL [address] [place] [address] Regina Paz MD 73 [place] [address] documented as of this encounter Procedures Procedure [...] documented as of this encounter Care Teams Concrete Mixing Plant Laborer Relationship Specialty Start Date End Date Regina Paz MD 73 [place] [address] PCP - General Internal Medicine 06/09/22 documented as of this encounter
--- OUTSIDE RECORDS SUMMARY | 2025-04-22 14:18 | XMS_ITS | Encounter Summary ---
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 documented in this encounter Plan of Treatment Upcoming Encounters Date Type Department Care Team (Late st Contact Info) Description 06/19/2025 4:00 PM EST Office Visit [facility] DENTAL [address] [place] [address] Julissa Macedo LLD 9 [place] [address] 08/12/2025 8:30 AM EDT Office Visit [facility] OPTOMETRY [address] [place] [address] Tessa Randall OD 73 [place] [address] 09/25/2025 9:30 AM EDT Office Visit [facility] MEDICAL [address] [place] [address] Regina Paz MD [address] [place] [address] documented as of this encounter Visit Diagnoses Not on filedocumented in this encounter Additional Health Concerns Assessment Noted Time PHQ-9 Depression Total Score: 9 12/05/19 25 11:43 AM EDT documented as of this encounter Care Teams Clinical Audiologist Relationship Specialty Start Date End Date Regina Paz MD [address] [place] [address] PCP - General Internal Medicine 06/09/22 documented as of this encounter
--- OUTSIDE RECORDS SUMMARY | 2025-04-22 14:18 | XMS_ITS | Encounter Summary ---
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 Not on file documented as of this encounter Plan of Treatment Upcoming Encounters Date Type Department Care Team (Late st Contact Info) Description 06/19/2025 4:00 PM EST Office Visit [facility] DENTAL [address] [place] [address] Julissa Macedo LLD 9 [place] [address] 08/12/2025 8:30 AM EDT Office Visit [facility] OPTOMETRY [address] [place] [address] Tessa Randall OD 73 [place] [address] 09/25/2025 9:30 AM EDT Office Visit [facility] MEDICAL [address] [place] [address] Regina Paz MD 73 [place] [address] documented as of this encounter Procedures Procedure Name Priority Date/Time Associated Diagnosis Comments US THYROID Routine 04/22/2025 documented in this encounter Results * US Thyroid (04/22/2025) Anatomical Region Laterality Modality Head, Neck Ultrasound us Regina Paz MD IMG US PROCEDURES Final Result documented in this encounter Visit Diagnoses Not on filedocumented in this encounter Additional Health Concerns Assessment Noted Time PHQ-9 Depression Total Score: 9 12/05/19 25 11:43 AM EDT documented as of this encounter Care Teams Quality Auditor Relationship Specialty Start Date End Date Regina Paz MD [address] [place] [address] PCP - General Internal Medicine 06/09/22 documented as of this encounter
--- OUTSIDE RECORDS SUMMARY | 2025-04-22 14:18 | XMS_ITS | Encounter Summary ---
Author Organization [facility] Address [address] [place] [address] Care Team Providers Care Talent Acquisition Administrator Name Role Phone Regina Paz Primary Care Provider [phone] Reason for Visit * Reason Onset Date Comments PAC RX Refill 10/08/2023 Dr. Abad Borrego calling from [facility] as she needs clarification re: quantity of how many capsule should patient be taking daily. Encounter Details Date Type Department Care Team (Late st Contact Info) Description 10/08/2023 Telephone [facility] [address] [place] [address] Telephone Intake, Staff PAC RX Refill (Dr. Abad Borrego calling from [facility] as she needs clarification re: [...] EDT Dr. Melgoza patient. Salima calling from [facility] as she needs clarification re: quantity of how many capsule should patient be taking daily. Medication name: NALTREXONE 1.5 MG Salima tel #: [phone]. Thank you-PAC documented in this encounter Plan of Treatment Not on file documented as of this encounter Visit Diagnoses Not on filedocumented in this encounter Care Teams Talent Acquisition Administrator Relationship Specialty Start Date End Date Regina Paz [address] [place] [address] PCP - General Pediatrics 12/21/22 documented as of this encounter
--- OUTSIDE RECORDS SUMMARY | 2025-04-22 14:18 | XMS_ITS | Clinical Summary ---
Author Organization [facility] Address [address] [id number] Care Team Providers Care Digital Media Representative Name Role Phone Regina Paz MD Primary Care Provider [phone] Social History Tobacco Use Types Packs/Day Years [...] age to complete this topic Care Teams Digital Media Representative Relationship Specialty Start Date End Date Regina Paz MD [address] [place] [address] PCP - General Internal Medicine 09/02/20
--- OUTSIDE RECORDS SUMMARY | 2025-04-22 14:18 | XMS_ITS | Clinical Summary ---
Author Organization [facility] Address [address] [place] [address] Care Team Providers Care Nut Packer Name Role Phone Regina Paz Primary Care Provider [phone] Allergies Active Allergy Reactions Criticality Noted Date [...] or Pediatric/Adolescent Dosage 01/15/1993,12/20/1991,07/20/1991 Influenza, Injectable, Madin Wellington Canine Kidney, Preservative Free, Quadrivalent 03/16/2023 Influenza, [...] Cancer Screening (Baseline) 08/10/2024 08/11/2023 Influenza Vaccine (#1) 2024 , 03/03/2022, 02/25/2021, Additional history exists COVID-19 Vaccine ( - season) 2025 05/17/2023, 03/03/2022, 02/25/2021, Additional history exists DTaP,Tdap,and Td Vaccines (5 - Td or Tdap) 09/09/2031 09/08/2021, 04/16/2018, 11/15/2010, Additional history exists RSV Vaccine (60+ years old and patients) (1 - 1-dose 75+ series) 09/14/2038 Hepatitis B Vaccines Aged Out 01/15/1993, 12/20/1991, 07/20/1991 No longer eligible based on patient's age to complete this topic Hepatitis C Screening Completed 05/15/2023 Procedures * Due to [place] Angry Citizen law, this organization might not be sharing negative HIV tests. Procedure Name Priority Date/Time Associated Diagnosis Comments HEPATITIS C ANTIBODY W/REFLEX TO HCV RNA, QUANTITATIVE PCR Routine 05/15/2023 10:55 AM EST Pericarditis, unspecified chronicity, unspecified type from Last 3 Months or Most Recently Relevant to Health Maintenance Results * Due to [place] Angry Citizen law, this organization might not be sharing negative HIV tests. * Hepatitis C Antibody w/Reflex to HCV RNA, Quantitative PCR (05/15/2023 10:55 AM EST) Hepatitis C Antibody NON-REACT LIOR NON-REACT LIOR 05/15/2023 10:28 PM EST [facility] Comment: HCV antibody was non-reactive. There is no laboratory evidence of HCV infection. In most cases, no further action is required. However, if recent HCV exposure is suspected, a test for HCV RNA (test code 88515) is suggested. For additional information please refer to http://education.SMCpros/faq/RQS21u0 (This link is being provided for informational/ educational purposes only.) Blood Structure of peripheral vein / Unknown Venipuncture / Unknown 05/15/2023 10:55 AM EST 05/15/2023 11:27 AM EST [facility] 05/15/2023 10:28 PM EST [facility] Received Date: us Violeta Quintana MD LAB BLOOD ORDERABLES Final Re sult [facility] [address] [facility] 3rd Floor, [place] [address], [place] [phone] [facility] [address] [facility] 3rd Floor, [place] [address], [place] [phone] from Last 3 Months or Most Recently Relevant to Health Maintenance [place] [address] , [place] [address] Care Teams Nut Packer Relationship Specialty Start Date End Date Regina Paz [address] [place] [address] PCP - General Pediatrics 12/21/22
--- OUTSIDE RECORDS SUMMARY | 2025-04-22 14:18 | XMS_ITS | Encounter Summary ---
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 file Not on file documented as of this encounter Plan of Treatment Upcoming Encounters Date Type Department Care Team (Late st Contact Info) Description 06/19/2025 4:00 PM EST Office Visit [facility] DENTAL [address] [place] [address] Julissa Macedo LLD 9 [place] [address] 08/12/2025 8:30 AM EDT Office Visit [facility] OPTOMETRY [address] [place] [address] Tessa Randall OD 73 [place] [address] 09/25/2025 9:30 AM EDT Office Visit [facility] MEDICAL [address] [place] [address] Regina Paz MD [address] [place] [address] documented as of this encounter Procedures Procedure [...] documented as of this encounter Care Teams Chain Splitter Relationship Specialty Start Date End Date Regina Paz MD [address] [place] [address] PCP - General Internal Medicine 06/09/22 documented as of this encounter
--- OUTSIDE RECORDS SUMMARY | 2025-04-22 14:18 | XMS_ITS | Encounter Summary ---
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 file Not on file documented as of this encounter Plan of Treatment Upcoming Encounters Date Type Department Care Team (Late st Contact Info) Description 06/19/2025 4:00 PM EST Office Visit [facility] DENTAL 73 [place] [address] Julissa Macedo LLD 9 [place] [address] 08/12/2025 8:30 AM EDT Office Visit [facility] OPTOMETRY 73 [place] [address] Tessa Randall OD 73 [place] [address] 09/25/2025 9:30 AM EDT Office Visit [facility] MEDICAL [address] [place] [address] Regina Paz MD [address] [place] [address] documented as of this encounter Procedures Procedure [...] documented as of this encounter Care Teams Nuisance Wildlife Specialist Relationship Specialty Start Date End Date Regina Paz MD [address] [place] [address] PCP - General Internal Medicine 06/09/22 documented as of this encounter
--- OUTSIDE RECORDS SUMMARY | 2025-04-22 14:19 | XMS_ITS | Encounter Summary ---
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 Not on file documented as of this encounter Plan of Treatment Upcoming Encounters Date Type Department Care Team (Late st Contact Info) Description 06/19/2025 4:00 PM EST Office Visit [facility] DENTAL [address] [place] [address] Julissa Macedo LLD 9 [place] [address] 08/12/2025 8:30 AM EDT Office Visit [facility] OPTOMETRY [address] [place] [address] Tessa Randall, JORGITO [address] [place] [address] 09/25/2025 9:30 AM EDT Office Visit [facility] MEDICAL [address] [place] [address] Regina Paz MD [address] [place] [address] documented as of this encounter Procedures Procedure [...] documented as of this encounter Care Teams Facility Assistant Relationship Specialty Start Date End Date Regina Paz MD [address] [place] [address] PCP - General Internal Medicine 06/09/22 documented as of this encounter
--- OUTSIDE RECORDS SUMMARY | 2025-04-22 14:19 | XMS_ITS | Encounter Summary ---
Author Organization [employer] Address [address] [place] [address] 7 [place] [address] Care Team Providers Care Export Freight Specialist Name Role Phone Regina Paz MD Primary Care Provider [phone] Encounter Details Date Type Department Care Team [...] Description 06/19/2025 4:00 PM EST Office Visit [facility] DENTAL [address] [place] [address] Julissa Macedo LLD 9 [place] [address] 08/12/2025 8:30 AM EDT Office Visit [facility] OPTOMETRY [address] [place] [address] Tessa Randall OD [address] [place] [address] 09/25/2025 9:30 AM EDT Office Visit [facility] MEDICAL [address] [place] [address] Regina Paz MD 73 [place] [address] documented as of this encounter Visit Diagnoses Not on filedocumented in this encounter Care Teams Export Freight Specialist Relationship Specialty Start Date End Date Regina Paz MD [address] [place] [address] PCP - General Internal Medicine 06/09/22 documented as of this encounter
--- OUTSIDE RECORDS SUMMARY | 2025-04-22 14:19 | XMS_ITS | Encounter Summary ---
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 on file documented as of this encounter Plan of Treatment Upcoming Encounters Date Type Department Care Team (Late st Contact Info) Description 06/19/2025 4:00 PM EST Office Visit [facility] DENTAL [address] [place] [address] Julissa Macedo LLD 9 [place] [address] 08/12/2025 8:30 AM EDT Office Visit [facility] OPTOMETRY [address] [place] [address] Tessa Randall, JORGITO 73 [place] [address] 09/25/2025 9:30 AM EDT Office Visit [facility] MEDICAL 73 [place] [address] Regina Paz MD 73 [place] [address] documented as of this encounter Procedures Procedure [...] documented as of this encounter Care Teams Drum Barker Operator Relationship Specialty Start Date End Date Regina Paz MD [address] [place] [address] PCP - General Internal Medicine 06/09/22 documented as of this encounter
--- OUTSIDE RECORDS SUMMARY | 2025-04-22 14:19 | XMS_ITS | Encounter Summary ---
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.] documented as of this encounter Care Teams Felting Machine Operator Relationship Specialty Start Date End Date Regina Paz MD [address] [place] [address] PCP - General Internal Medicine 06/09/22 documented as of this encounter
--- OUTSIDE RECORDS SUMMARY | 2025-04-22 14:19 | XMS_ITS | Encounter Summary ---
Author Organization [employer] Address [address] [place] [address] 7 [place] [address] Care Team Providers Care Concrete Pipe Plant Supervisor Name Role Phone Regina Paz MD Primary Care Provider [phone] Encounter Details Date Type Department Care Team [...] Office Visit [facility] DENTAL [address] [place] [address] Julissa Macedo LLD 9 [place] [address] 08/12/2025 8:30 AM EDT Office Visit [facility] OPTOMETRY [address] [place] [address] Tessa Randall OD 73 [place] [address] 09/25/2025 9:30 AM EDT Office Visit [facility] MEDICAL [address] [place] [address] Regina Paz MD 73 [place] [address] documented as of this encounter Visit Diagnoses Not on filedocumented in this encounter Care Teams Concrete Pipe Plant Supervisor Relationship Specialty Start Date End Date Regina Paz MD [address] [place] [address] PCP - General Internal Medicine 06/09/22 documented as of this encounter
--- OUTSIDE RECORDS SUMMARY | 2025-04-22 14:19 | XMS_ITS | Encounter Summary ---
Author Organization [employer] Address [address] [place] [address] 7 [place] [address] Care Team Providers Care Coronary Care Unit Nurse Name Role Phone Regina Paz MD Primary Care Provider [phone] Encounter Details Date Type Department Care Team [...] Visit [facility] DENTAL [address] [place] [address] Julissa Macedo LLD 9 [place] [address] 08/12/2025 8:30 AM EDT Office Visit [facility] OPTOMETRY [address] [place] [address] Tessa Randall OD 73 [place] [address] 09/25/2025 9:30 AM EDT Office Visit [facility] MEDICAL [address] [place] [address] Regina Paz MD 73 [place] [address] documented as of this encounter Visit Diagnoses Not on filedocumented in this encounter Care Teams Coronary Care Unit Nurse Relationship Specialty Start Date End Date Regina Paz MD [address] [place] [address] PCP - General Internal Medicine 06/09/22 documented as of this encounter
--- OUTSIDE RECORDS SUMMARY | 2025-04-22 14:19 | XMS_ITS | Encounter Summary ---
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 DENTAL [address] [place] [address] Julissa Macedo LLD 9 [place] [address] 08/12/2025 8:30 AM EDT Office Visit [facility] OPTOMETRY [address] [place] [address] Tessa Randall, JORGITO 73 [place] [address] 09/25/2025 9:30 AM EDT Office Visit [facility] MEDICAL [address] [place] [address] Regina Pza MD 73 [place] [address] documented as of this encounter Procedures Procedure [...] documented as of this encounter Care Teams Embossing Calender Operator Relationship Specialty Start Date End Date Regina Paz MD [address] [place] [address] PCP - General Internal Medicine 06/09/22 documented as of this encounter
--- OUTSIDE RECORDS SUMMARY | 2025-04-22 14:19 | XMS_ITS | Encounter Summary ---
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 Not on file documented as of this encounter Plan of Treatment Upcoming Encounters Date Type Department Care Team (Late st Contact Info) Description 06/19/2025 4:00 PM EST Office Visit [facility] DENTAL [address] [place] [address] Julissa Macedo LLD 9 [place] [address] 08/12/2025 8:30 AM EDT Office Visit [facility] OPTOMETRY [address] [place] [address] Tessa Randall OD [address] [place] [address] 09/25/2025 9:30 AM EDT Office Visit [facility] MEDICAL [address] [place] [address] Regina Paz MD [address] [place] [address] documented as of this encounter Procedures Procedure [...] documented as of this encounter Care Teams Regional Climate Change Analyst Relationship Specialty Start Date End Date Regina Paz MD [address] [place] [address] PCP - General Internal Medicine 06/09/22 documented as of this encounter
--- OUTSIDE RECORDS SUMMARY | 2025-04-22 14:19 | XMS_ITS | Encounter Summary ---
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 file Not on file documented as of this encounter Plan of Treatment Upcoming Encounters Date Type Department Care Team (Late st Contact Info) Description 06/19/2025 4:00 PM EST Office Visit [facility] DENTAL [address] [place] [address] Julissa Macedo LLD 9 [place] [address] 08/12/2025 8:30 AM EDT Office Visit [facility] OPTOMETRY [address] [place] [address] Tessa Randall OD [address] [place] [address] 09/25/2025 9:30 AM EDT Office Visit [facility] MEDICAL [address] [place] [address] Regina Paz MD [address] [place] [address] documented as of this encounter Procedures Procedure [...] documented as of this encounter Care Teams It Disaster Recovery Manager Relationship Specialty Start Date End Date Regina Paz MD [address] [place] [address] PCP - General Internal Medicine 06/09/22 documented as of this encounter
--- OUTSIDE RECORDS SUMMARY | 2025-04-22 14:19 | XMS_ITS | Encounter Summary ---
Author Organization [employer] Address [address] [place] [address] 7 [place] [address] Care Team Providers Care Mounting Machine Operator Name Role Phone Regina Paz MD Primary Care Provider [phone] Encounter Details Date Type Department Care Team [...] Description 06/19/2025 4:00 PM EST Office Visit [facility] DENTAL [address] [place] [address] Julissa Macedo LLD 9 [place] [address] 08/12/2025 8:30 AM EDT Office Visit [facility] OPTOMETRY [address] [place] [address] Tessa Randall OD [address] [place] [address] 09/25/2025 9:30 AM EDT Office Visit [facility] MEDICAL [address] [place] [address] Regina Paz MD 73 [place] [address] documented as of this encounter Visit Diagnoses Not on filedocumented in this encounter Care Teams Mounting Machine Operator Relationship Specialty Start Date End Date Regina Paz MD [address] [place] [address] PCP - General Internal Medicine 06/09/22 documented as of this encounter
--- OUTSIDE RECORDS SUMMARY | 2025-04-22 14:19 | XMS_ITS | Encounter Summary ---
Author Organization [employer] Address [address] [place] [address] 7 [place] [address] Care Team Providers Care Performance Tester Name Role Phone Regina Paz MD Primary Care Provider [phone] Encounter Details Date Type Department Care Team [...] 06/19/2025 4:00 PM EST Office Visit [facility] DENTAL [address] [place] [address] Julissa Macedo LLD 9 [place] [address] 08/12/2025 8:30 AM EDT Office Visit [facility] OPTOMETRY [address] [place] [address] Tessa Randall OD [address] [place] [address] 09/25/2025 9:30 AM EDT Office Visit [facility] MEDICAL [address] [place] [address] Regina Paz MD 73 [place] [address] documented as of this encounter Visit Diagnoses Not on filedocumented in this encounter Care Teams Performance Tester Relationship Specialty Start Date End Date Regina Paz MD [address] [place] [address] PCP - General Internal Medicine 06/09/22 documented as of this encounter
--- OUTSIDE RECORDS SUMMARY | 2025-04-22 14:19 | XMS_ITS | Encounter Summary ---
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 file documented as of this encounter Plan of Treatment Upcoming Encounters Date Type Department Care Team (Late st Contact Info) Description 06/19/2025 4:00 PM EST [facility] [address] [place] [address] Julissa Macedo LLD 9 [place] [address] 08/12/2025 8:30 AM EDT [facility] [address] [place] [address] Tessa Randall, JORGITO 73 [place] [address] 09/25/2025 9:30 AM EDT [facility] [address] [place] [address] Regina Paz MD 73 [place] [address] documented as of this encounter Procedures Procedure [...] documented as of this encounter Care Teams Underground Foreman Relationship Specialty Start Date End Date Regina Paz MD [address] [place], [place] [phone] PCP - General Internal Medicine 06/09/22 documented as of this encounter
--- OUTSIDE RECORDS SUMMARY | 2025-04-22 14:19 | XMS_ITS | Clinical Summary ---
Author Organization [facility] Address [address] [address] Phone Care Team Providers Care Cooler Man Name Role Phone Regina Paz MD Primary Care Provider [phone] Allergies No known active allergies Medications rosuvastatin [...] Relevant to Health Maintenance [place] [address] [place] [address] [place] [address] Care Teams Cooler Man Relationship Specialty Start Date End Date Regina Paz MD [address] [place] [address] [facility] PCP - General Internal Medicine 12/27/20 Additional Source Comments The information contained in this document represents components of the legal health record. It is not the complete legal health record.[facility]
--- OUTSIDE RECORDS SUMMARY | 2025-04-22 14:19 | XMS_ITS | Clinical Summary ---
Author Organization [employer] Address [address] [place] [address] 7t [place] [address] Care Team Providers Care Vp Software Name Role Phone Regina Paz MD Primary Care Provider [phone] Allergies Active Allergy Reactions Criticality Noted Date [...] Active hydroxychloroq uine (Plaquenil) 200 MG tablet RHEUMATOLOGY 024 Active ondansetron (Zofran) 8 MG tabletIndicati ons:Migraine without aura and without status migrainosus, not intractable Take 1 tablet (8 mg) by mouth every 8 (eight) hours if needed for nausea or vomiting. 90 tablet 2 024 Active metoclopramide (Reglan) 10 MG tablet Take 1 tablet (10 mg) by mouth 3 times daily. Per GI 180 tablet 3 024 Active colchicine 0.6 MG tablet Take 1 tablet (0.6 mg) by mouth 3 times daily. PRN 90 tablet 024 Active omeprazole (PriLOSEC) [address] capsule Take 40 mg by mouth Once per day. 024 Active butalbital-zunilda taminophen-caf feine (Esgic) 50-325-40 MG capsuleIndicat ions:Abdominal migraine, not intractable Take 1 capsule by mouth every 4 (four) hours if needed for headaches. 180 capsule 025 2025 Active Compro 25 MG suppositoryInd ications:Abdom inal migraine, not intractable Insert 1 suppository (25 mg) into the rectum every 8 (eight) hours if needed for nausea or vomiting. 12 suppository 2 025 Active verapamil ER (Verelan) 120 MG 24 hr capsule Take 120 mg by mouth at bedtime. PER ER TAYLOR (CARDIOLOGY )Do not crush or chew. Active cyclobenzaprin e (Flexeril) 10 MG tabletIndicati ons:Migraine without aura and without status migrainosus, not intractable Take 1 tablet (10 mg) by mouth 2 times daily. 180 tablet 1 Active metoprolol succinate XL (Toprol-XL) 50 MG 24 hr tablet Take 1 tablet by mouth Once per day. 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 PRN 54 tablet 025 Active acyclovir (Zovirax) 400 MG tablet TAKE 1 TABLET BY MOUTH TWICE DAILY NEEDED FOR HERPES LESIONS FOR 7 DAYS 60 tablet 025 Active Kineret 100 MG/0.67ML injection 025 Active minoxidil (Rogaine) 2 % external solution Apply topically 2 times daily. Active rosuvastatin (Crestor) 10 MG tablet TAKE 1 TABLET BY MOUTH IN THE MORNING 90 tablet 10/14/2 025 Active latanoprost (Xalatan) 0.005 % ophthalmic solutionIndica tions:Primary open angle glaucoma (POAG) of left eye, mild stage Administer 1 drop into both eyes at bedtime. 2.5 mL 5 025 2025 Active SUMAtriptan (Imitrex) 20 MG/ACT nasal sprayIndicatio ns:Migraine without aura and without status migrainosus, not intractable Administer 1 spray (20 mg) into one nostril 1 (one) time if needed for migraine. 18 each 025 2024 Active timolol (Timoptic-XR) 0.5 % ophthalmic gel-formingInd ications:Prima ry open angle glaucoma (POAG) of left eye, mild stage Administer 1 drop into both eyes in the morning. 10 mL 4 025 2025 Active SUMAtriptan (Imitrex) 20 MG/ACT nasal sprayIndicatio ns:Migraine without aura and without status migrainosus, not intractable USE 1 SPRAY IN NOSTRIL(S) ONCE DAILY NEEDED FOR HEADACHE 6 each 025 2024 Discontinued Active Problems Problem Noted Date Diagnosed Date Primary open angle glaucoma (POAG) of left eye, mild stage 04/22/2025 Abdominal migraine, not intractable 06/01/2022 Abnormal magnetic resonance imaging of soft tiss ue of neck 06/01/2022 Anxiety 06/01/2022 Cervical radiculopathy 06/01/2022 History of cholecystectomy 06/01/2022 Hoarseness 06/01/2022 Hyperlipidemia 06/01/2022 Insomnia 06/01/2022 Leukocytosis 06/01/2022 Migraine without aura and wi thout status migrainosus, not intractable 06/01/2022 Thyroglossal duct cyst 06/01/2022 Thyroid nodule 06/01/2022 Vasculitis 06/01/2022 Encounters Date Type Department Care Team Description 04/22/2025 8:30 AM EST Office Visit [facility] OPTOMETRY [address] [place] [address] Tessa Randall, OD Primary open angle glaucoma (POAG) of left eye, mild stage (Primary Dx) 04/22/2025 Orders Only [facility] [address] [place] [address] Regina Paz MD 04/22/[address] [address] [employer] 04/17/[address] [address] Regina Paz MD Migraine without aura and without status migrainosus, not intractable (Primary Dx) 04/15/2025 Travel 04/01/[address] [address] Regina Paz MD immunization records 03/24/2025 10:00 AM EDT Office Visit [address] [address] Regina Paz MD History of pericarditis (Primary Dx); Immunization due; Autoimmune disorder (CMS/HCC) 03/23/2025 Results Follow-Up [address] [address] Regina Paz MD QuantiFERON -TB Gold Plus, 1 Tube [[id number]] 03/18/2025 Telephone [facility] OPTOMETRY [address] [place] [address] Tessa Randall, OD 03/18/[address] [address] Regina Paz MD request new labs 03/17/2025 Travel 03/15/2025 Orders Only [facility] Information Management [address] [place] [address] Regina Paz MD 03/08/[address] [address] Regina Paz MD 02/12/2025 12:00 PM EDT Office Visit [facility] OPTOMETRY [address] [place] [address] Tessa Randall, OD Glaucoma suspect of both eyes (Primary Dx) 02/08/2025 Travel from Last 3 Months Immunizations Immunization Administration [...] 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 [...] Description 06/19/2025 4:00 PM EST Office Visit [facility] DENTAL [address] [place] [address] Julissa Macedo LLD 9 [place] [address] 08/12/2025 8:30 AM EDT Office Visit [facility] OPTOMETRY [address] [place] [address] Tessa Randall, OD [address] [place] [address] 09/25/2025 9:30 AM EDT Office Visit [facility] MEDICAL [address] [place] [address] Regina Paz MD [address] [place] [address] Health Maintenance Due Date Last Done Comments CT Colonography 1963 Colonoscopy 1963 Colorectal Cancer Screening 1963 FIT DNA/Cologuard 1963 FIT 1963 FOBT 1963 HIV Screening 1963 Sigmoidoscopy 1963 Hepatitis C Screening 09/14/1981 HPV/Cotest 09/14/1993 Zoster Vaccines (1 of 2) 09/14/2013 Cervical Cancer Screening 07/16/2023 Pap Smear 07/16/2023 07/16/2020 Dental X-Ray: Full Mouth 06/02/2025 06/01/2022, 0312/2015 Depression Monitoring 06/06/2025 12/04/2024, 025 Dental X-Ray: Bitewings 06/07/2025 06/06/19 25, 05/22/2023, 06/01/2022, Additional history exists Dental Oral Exam 06/14/2025 12/11/2024, 02/2025, 05/22/2023, Additional history exists Dental Prophylaxis 06/14/2025 12/11/2024, 0 06/06/2024, 12/04/2023, Additional history exists Alcohol/Substance Use Screening 06/27/2025 06/27/2024 SDOH Screening 06/27/2025 06/27/2024 Disability Screening 11/04/2025 11/04/2024 Mammogram 02/28/2026 02/29/2024, 08/26, 09/08/2021, Additional history exists Tobacco Screening 04/22/2026 04/22/2025 Lipid Panel 06/10/2029 06/10/2024, 07/26, 04/23/2023, Additional history exists DTaP/Tdap/Td Vaccines (5 - Td or Tdap) 09/09/2031 09/08/2021, 04/16/2018, 11/15/2010, Additional history exists Hepatitis B Vaccines Aged Out 01/15/1993, 12/20/1991, 07/20/1991 No longer eligible based on patient's age to complete this topic Pneumococcal Vaccine: 50+ Years Completed 04/08/2024 RSV [...] Associated Diagnosis Comments US THYROID Routine 04/22/2025 C-REACTIVE PROTEIN Routine 03/20/2025 11 :22 AM [...] Recently Relevant to Health Maintenance Results * US Thyroid (04/22/2025) Anatomical Region Laterality Modality Head, Neck Ultrasound Regina Paz MD [facility] US PROCEDURES Final Result * (ABNORMAL) CBC auto differential (03/20/2025 11:22 AM EDT) White Blood Cell Count 6.8 3.4 - 10.8 x10E3/uL [facility] Red Blood Cell Count 4.20 3.77 - 5.28 x10E6/uL [facility] Hemoglobin 14.2 11.1 - 15.9 g/dL [facility] Hematocrit 41.6 34.0 - 46.6 % [facility] MCV 99(H) 79 - 97 fL [facility] MCH 33.8(H) 26.6 - 33.0 pg [facility] MCHC 34.1 31.5 - 35.7 g/dL [facility] RDW 12.5 11.7 - 15.4 % [facility] Platelet Count 174 150 - 450 x10E3/uL [facility] Neutrophils 60 Not Estab. % [facility] Lymphocytes 26 Not Estab. % [facility] Monocytes 8 Not Estab. % [facility] Eosinophils 5 Not Estab. % [facility] Basophils 1 Not Estab. % [facility] Absolute Neutrophils 4.1 1.4 - 7.0 x10E3/uL [facility] Absolute Lymphocytes 1.8 0.7 - 3.1 x10E3/uL [facility] Absolute Monocytes 0.6 0.1 - 0.9 x10E3/uL [facility] Absolute Eosinophils 0.3 0.0 - 0.4 x10E3/uL [facility] Absolute Basophils 0.1 0.0 - 0.2 x10E3/uL [facility] Immature Granulocytes 0 Not Estab. % [facility] Immature Grans (Abs) 0.0 0.0 - 0.1 x10E3/uL [facility] Blood Venous blood specimen / Unknown 03/20/2025 11:22 AM EDT 03/20/2025 Narrative Resulting Agency Comment Performed at: 01 - [facility] [address] [place], [place] [id number] Timber Killer: Yi Willett MD, Phone: [phone] us Regina Paz MD LAB BLOOD ORDERABLES Final Resul t [facility] 1 [facility] [address] [place] [address] * Sedimentation rate, automated (03/20/2025 11:22 AM EDT) Pathologist [facility] Sed Rate By Modified Westergren 7 0 - 40 mm/hr [facility] Blood Venous blood specimen / Unknown 03/20/2025 11:22 AM EDT 03/20/2025 Narrative Resulting Agency Comment Performed at: - [address] [id number] Timber Killer: Yi Willett MD, Phone: [phone] Regina Paz MD LAB BLOOD ORDERABLES Final Resul t Performing Organization Address City/[facility]/ZIP Co de Phone Number [facility] [address] [address] * C-reactive Protein [[id number]] (03/20/2025 11:22 AM EDT) [facility] C-Reactive Protein 3 0 - 10 mg/L [facility] Blood Venous blood specimen / Unknown 03/20/2025 11:22 AM EDT 03/20/2025 Narrative Resulting Agency Comment Performed at: - [address] [id number] Timber Killer: Yi Willett MD, Phone: [phone] Regina Paz MD LAB BLOOD ORDERABLES Final Resul t Performing Organization Address City/[facility]/ZIP Co de Phone Number [facility] [address] [address] * (ABNORMAL) Comprehensive metabolic panel (03/20/2025 11:22 AM EDT) [facility] Glucose 77 70 - 99 mg/dL [facility] Urea Nitrogen (BUN) 18 8 - 27 mg/dL [facility] Creatinine, Serum 0.90 0.57 - 1.00 mg/dL [facility] eGFR 73 >59 mL/min/1.7 3 [facility] BUN/Creatinine Ratio 20 12 - 28 [facility] Sodium 141 134 - 144 mmol/L [facility] Potassium 4.2 3.5 - 5.2 mmol/L [facility] Chloride 108(H) 96 - 106 mmol/L [facility] Anion Gap 14.0 10.0 - 18.0 mmol/L [facility] Carbon Dioxide 19(L) 20 - 29 mmol/L [facility] Calcium 9.0 8.7 - 10.3 mg/dL [facility] Protein, Total 6.4 6.0 - 8.5 g/dL [facility] Albumin 4.4 3.9 - 4.9 g/dL [facility] Globulin 2.0 1.5 - 4.5 g/dL [facility] Bilirubin, Total 0.3 0.0 - 1.2 mg/dL [facility] Alkaline Phosphatase 60 49 - 135 IU/L [facility] AST 28 0 - 40 IU/L [facility] ALT 56(H) 0 - 32 IU/L [facility] Blood Venous blood specimen / Unknown 03/20/2025 11:22 AM EDT 03/20/2025 Narrative Resulting Agency Comment Performed at: - [address] [id number] Timber Killer: Yi Willett MD, Phone: [phone] us Regina Paz MD LAB BLOOD ORDERABLES Final Resul t [facility] [address] * QuantiFERON-TB Gold Plus (03/20/2025 11:21 AM EDT) [facility] QuantiFERON Criteria [facility] Comment: QuantiFERON-TB Gold Plus is a qualitative [...] test. QuantiFERON TB1 Ag Value 0.07 IU/mL [facility] QuantiFERON TB2 Ag Value 0.06 IU/mL [facility] QuantiFERON Nil Value 0.01 IU/mL [facility] QuantiFERON Mitogen Value >10.00 IU/mL [facility] 03/20/2025 11:2 1 AM EDT 03/20/2025 Narrative Resulting Agency Comment Performed at: - [address] [id number] Timber Killer: Yi Willett MD, Phone: [phone] us Regina Paz MD HISTORICAL/NON ORDERABLE LABS Fi nal Result Performing Organization Address City/[facility]/ZIP Co de Phone Number [facility] [address] [address] * QuantiFERON??-TB Gold Plus, 1 Tube [[id number]] (03/20/2025 11:21 AM EDT) [facility] QuantiFERON Incubation Incubation performed. [facility] Quantiferon -TB Gold Plus, 1 Tube Negative Negative [facility] Comment: No response to M tuberculosis antigens detected. Infection with M tuberculosis is unlikely, but high risk individuals should be considered for additional testing (ATS/IDSA/CDC Clinical Practice Guidelines, 2017). The reference range is an Antigen minus Nil result of <0.35 IU/mL. Chemiluminescence immunoassay methodology Blood Venous blood specimen / Unknown 03/20/2025 11:21 AM EDT 03/20/2025 Narrative Resulting Agency Comment Performed at: [address] [id number] Timber Killer: Yi Willett MD, Phone: [phone] us Regina Paz MD LAB BLOOD ORDERABLES Final Resul t Performing Organization Address City/[facility]/ZIP Co de Phone Number [facility] 1 [facility] [address] [place] [address] * MAMMO SCREENING BILATERAL (03/06/2025 10:46 AM [...] inf and sup arc defect; establishing baseline Tessa Randall OD OPHTH VISUAL FIELD Final Result * Lipid Panel, Standard (06/10/2024 7:55 AM EST) Blood Venous blood specimen / Unknown Result [facility] Historical Provider LAB BLOOD ORDERABLES Laly l Result * BI Mammogram Screening Bilateral (02/29/2024 3:34 PM EDT) Anatomical Region Laterality Modality Breast Bilateral Mammography Regina Paz MD IMG BI PROCEDURES Final Result * Pap Smear (07/16/2020) Pap smear NEGATIVE Result [facility] Historical Provider HEALTH MAINTENANCE Final Result from Last 3 Months or Most Recently Relevant to Health Maintenance Insurance [employer] [facility] [id number] [place] [address] Care Teams Vp Software Relationship Specialty Start Date End Date Regina Paz MD [address] [place] [address] PCP - General Internal Medicine 06/09/22
--- OUTSIDE RECORDS SUMMARY | 2025-04-22 14:19 | XMS_ITS | Encounter Summary ---
Author Organization [facility] Address [address] [place] [address] Phone Care Team Providers Care Network Director Name Role Phone Regina Paz MD Primary Care Provider [phone] Encounter Details Date Type Department Care Team (Late st Contact Info) Description 11/05/2023 Procedure Pass [facility], Ct Scan - [address] [address] Social History Tobacco Use Types Packs/Day Years [...] 10:21 AM EDT Ric Pierce RN * [place] Suicide Severity Rating Scale (Screener/Recent Self-Report) Question [...] on filedocumented in this encounter Care Teams Network Director Relationship Specialty Start Date End Date Regina Paz MD [address] [place] [address] [email or web address] PCP - General Internal Medicine 12/27/20 documented as of this encounter Additional Source Comments The information contained in this document represents components of the legal health record. It is not the complete legal health record.[facility]
--- OUTSIDE RECORDS SUMMARY | 2025-04-22 14:19 | XMS_ITS | Encounter Summary ---
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 file Not on file documented as of this encounter Plan of Treatment Upcoming Encounters Date Type Department Care Team (Late st Contact Info) Description 06/19/2025 4:00 PM EST Office Visit [facility] DENTAL [address] [place] [address] Julissa Macedo LLD 9 [place] [address] 08/12/2025 8:30 AM EDT Office Visit [facility] OPTOMETRY [address] [place] [address] Tessa Randall, JORGITO [address] [place] [address] 09/25/2025 9:30 AM EDT Office Visit [facility] MEDICAL [address] [place] [address] Regina Paz MD [address] [place] [address] documented as of this encounter Procedures Procedure [...] documented as of this encounter Care Teams Cyber Intelligence Analyst Relationship Specialty Start Date End Date Regina Paz MD [address] [place] [address] PCP - General Internal Medicine 06/09/22 documented as of this encounter
--- OUTSIDE RECORDS SUMMARY | 2025-04-22 14:19 | XMS_ITS | Encounter Summary ---
Author Organization [facility] Address [address] [place] [address] Phone Care Team Providers Care Electronic Field Service Engineer Name Role Phone Cheryl Day MD Primary Care Provider Regina Chacko MD Primary Care Provider [phone] Encounter Details Date Type Department Care Team (Late st Contact Info) Description 08/23/2018 Ancillary Orders Virtual Department 30 [place] [address] Florentino Alba MD [address] [place] [address] Breast screening Social History Tobacco Use Types [...] unspecified documented in this encounter Care Teams Electronic Field Service Engineer Relationship Specialty Start Date End Date Cheryl Day MD PCP - General 03/13/17 12/26/20 Regina Paz MD [address] [place] [address] PCP - General Internal Medicine 12/27/20 documented as of this encounter Additional Source Comments The information contained in this document represents components of the legal health record. It is not the complete legal health record.[facility]
--- OUTSIDE RECORDS SUMMARY | 2025-04-22 14:19 | XMS_ITS | Encounter Summary ---
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 [place] DENTAL [address] [place] [address] Julissa Macedo LLD 9 [place] [address] 08/12/2025 8:30 AM EDT Office Visit [facility] [place] OPTOMETRY [address] [place] [address] Tessa Randall OD 73 [place] [address] 09/25/2025 9:30 AM EDT Office Visit [facility] [place] MEDICAL [address] [place] [address] Regina Paz MD 73 [place] [address] documented as of this encounter Procedures Procedure [...] documented as of this encounter Care Teams Rehabilitation Worker Relationship Specialty Start Date End Date Regina Paz MD 73 [place] [address] PCP - General Internal Medicine 06/09/22 documented as of this encounter
--- OUTSIDE RECORDS SUMMARY | 2025-04-22 14:19 | XMS_ITS | Encounter Summary ---
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 file Not on file documented as of this encounter Plan of Treatment Upcoming Encounters Date Type Department Care Team (Late st Contact Info) Description 06/19/2025 4:00 PM EST Office Visit [facility] DENTAL 73 [place] [address] Julissa Macedo LLD 9 [place] [address] 08/12/2025 8:30 AM EDT Office Visit [facility] OPTOMETRY 73 [place] [address] Tessa Randall OD 73 [place] [address] 09/25/2025 9:30 AM EDT Office Visit [facility] MEDICAL 73 [place] [address] Regina Paz MD 73 [place] [address] documented as of this encounter Procedures Procedure [...] (05/12/2024 7:26 AM EST) us Historical Provider MD LAB BLOOD ORDERABLES Laly l Result * Other Reference Test - Misc (05/06/2024 7:32 AM EST) Result [facility] Provider MD LAB BLOOD ORDERABLES Laly l Result * FSH And LH (05/06/2024 7:27 AM EST) Result [facility] Provider MD LAB BLOOD ORDERABLES Laly l Result * Prolactin (05/06/2024 7:27 AM EST) Blood Venous blood specimen / Unknown Result [facility] Provider MD LAB BLOOD ORDERABLES Laly l Result * Other Reference Test - Misc (05/06/2024 7:27 AM EST) Result [facility] Provider MD LAB BLOOD ORDERABLES Laly l Result * DHEA Sulfate (05/06/2024 7:27 AM EST) Blood Venous blood specimen / Unknown Result [facility] Provider MD LAB BLOOD ORDERABLES Laly l Result documented in this encounter Visit Diagnoses Not on filedocumented in this encounter Additional Health Concerns Assessment Noted Time PHQ-9 Depression Total Score: 024 9:05 AM EST documented as of this encounter Care Teams Laundry Operator Finishing Relationship Specialty Start Date End Date Regina Paz MD [address] [place] [address] PCP - General Internal Medicine 06/09/22 documented as of this encounter
--- OUTSIDE RECORDS SUMMARY | 2025-04-22 14:19 | XMS_ITS | Encounter Summary ---
Author Organization [facility] Address [address] [place] [address] Phone Care Team Providers Care Application Security Engineer Name Role Phone hCeryl Day MD Primary Care Provider Regina Chacko MD Primary Care Provider [phone] Encounter Details Date Type Department Care Team (Late st Contact Info) Description 08/02/2017 Ancillary Orders Virtual Department 30 [place] [address] Cheryl Day MD Breast screening Social History [...] unspecified documented in this encounter Care Teams Application Security Engineer Relationship Specialty Start Date End Date Cheryl Day MD PCP - General 03/13/17 12/26/20 Regina Paz MD [address] [place] [address] PCP - General Internal Medicine 12/27/20 documented as of this encounter Additional Source Comments The information contained in this document represents components of the legal health record. It is not the complete legal health record.[facility]
--- OUTSIDE RECORDS SUMMARY | 2025-04-22 14:19 | XMS_ITS | Encounter Summary ---
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 documented in this encounter Plan of Treatment Upcoming Encounters Date Type Department Care Team (Late st Contact Info) Description 06/19/2025 4:00 PM EST Office Visit [facility] DENTAL [address] [place] [address] Julissa Macedo LLD 9 [place] [address] 08/12/2025 8:30 AM EDT Office Visit [facility] OPTOMETRY [address] [place] [address] Tessa Randall, JORGITO [address] [place] [address] 09/25/2025 9:30 AM EDT Office Visit [facility] MEDICAL [address] [place] [address] Regina Paz MD 73 [place] [address] documented as of this encounter Visit Diagnoses Not on filedocumented in this encounter Additional Health Concerns Assessment Noted Time PHQ-9 Depression Total Score: 9 12/05/19 25 11:43 AM EDT documented as of this encounter Care Teams Wind Turbine Mechanic Relationship Specialty Start Date End Date Regina Paz MD 73 [place] [address] PCP - General Internal Medicine 06/09/22 documented as of this encounter
--- OUTSIDE RECORDS SUMMARY | 2025-04-22 14:19 | XMS_ITS | Encounter Summary ---
Author Organization 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 file Not on file documented as of this encounter Plan of Treatment Upcoming Encounters Date Type Department Care Team (Late st Contact Info) Description 06/19/2025 4:00 PM EST Office Visit [facility] DENTAL [address] [place] [address] Julissa Macedo LLD 9 [place] [address] 08/12/2025 8:30 AM EDT Office Visit [facility] OPTOMETRY [address] [place] [address] Tessa Randall, JORGITO 73 [place] [address] 09/25/2025 9:30 AM EDT Office Visit [facility] MEDICAL [address] [place] [address] Regina Paz MD [address] [place] [address] documented as of this encounter Procedures Procedure [...] documented as of this encounter Care Teams Counter Waiter Relationship Specialty Start Date End Date Regina Paz MD [address] [place] [address] PCP - General Internal Medicine 06/09/22 documented as of this encounter
--- OUTSIDE RECORDS SUMMARY | 2025-04-22 14:20 | XMS_ITS | Encounter Summary ---
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 DENTAL [address] [place] [address] Julissa Macedo LLD 9 [place] [address] 08/12/2025 8:30 AM EDT Office Visit [facility] OPTOMETRY [address] [place] [address] Tessa Randall, JORGITO [address] [place] [address] 09/25/2025 9:30 AM EDT Office Visit [facility] MEDICAL [address] [place] [address] Regina Paz MD [address] [place] [address] documented as of this encounter Procedures Procedure [...] documented as of this encounter Care Teams Football Pad Repairer Relationship Specialty Start Date End Date Regina Paz MD [address] [place], [place] [id number] PCP - General Internal Medicine 06/09/22 documented as of this encounter
--- OUTSIDE RECORDS SUMMARY | 2025-04-22 14:20 | XMS_ITS | Encounter Summary ---
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 Not on file documented as of this encounter Plan of Treatment Upcoming Encounters Date Type Department Care Team (Late st Contact Info) Description 06/19/2025 4:00 PM EST Office Visit [facility] DENTAL [address] [place] [address] Julissa Macedo LLD 9 [place] [address] 08/12/2025 8:30 AM EDT Office Visit [facility] OPTOMETRY [address] [place] [address] Tessa Randall OD [address] [place] [address] 09/25/2025 9:30 AM EDT Office Visit [facility] MEDICAL [address] [place] [address] Regina Paz MD [address] [place] [address] documented as of this encounter Procedures Procedure [...] Blood Venous blood specimen / Unknown Result [facility] Provider MD LAB BLOOD ORDERABLES Laly l Result * B Type Natriuretic Peptide (BNP) (06/11/2024 7:56 AM EST) Blood Venous blood specimen / Unknown Result [facility] MD LAB BLOOD ORDERABLES Laly l Result * DHEA Sulfate (06/10/2024 7:58 AM EST) Blood Venous blood specimen / Unknown Result [facility] MD LAB BLOOD ORDERABLES Laly l Result * Comprehensive Metabolic Panel (06/10/2024 7:55 AM EST) Blood Venous blood specimen / Unknown Result [facility] MD LAB BLOOD ORDERABLES Laly l Result * C-reactive Protein (06/10/2024 7:55 AM EST) Blood Venous blood specimen / Unknown Result [facility] MD LAB BLOOD ORDERABLES Laly l Result * Lipid Panel, Standard (06/10/2024 7:55 AM EST) Blood Venous blood specimen / Unknown Result [facility] MD LAB BLOOD ORDERABLES Laly l Result * Cortisol Random (06/10/2024 7:55 AM EST) Result [facility] MD LAB BLOOD ORDERABLES Laly l Result [...] documented as of this encounter Care Teams Welding Machine Operator Thermit Relationship Specialty Start Date End Date Regina Paz MD [address] [place] [address] PCP - General Internal Medicine 06/09/22 documented as of this encounter
== END 2025-04-22 11:24 | disposition home or self-care (01) ==
LOC: HO.US 11:23
PROVIDERS: PCP Internal Medicine; Visit Provider Student in an Organized Health Care Education/Training Program
DX: E04.2 Nontoxic multinodular goiter (principal)
CPT/HCPCS: 76536

== ENCOUNTER → 2025-04-22 11:26 | Outpatient (BNV) | payer OTHER, SELFPAY | PROVIDERS: PCP Internal Medicine; Visit Provider Radiology Diagnostic Radiology | DX: E04.2 Nontoxic multinodular goiter (principal) | CPT/HCPCS: 76536 ==

== ENCOUNTER 2025-05-09 08:51 | Outpatient (REF) | payer OTHER, SELFPAY ==
--- OUTSIDE RECORDS SUMMARY | 2021-01-17 23:00 | XMS_ITS | Encounter Summary ---
Author Organization [facility] Address [address] [place] [address] [place] [phone] Phone Care Team Providers Care Production Team Leader Name Role Phone Regina Paz MD Primary Care Provider [phone] Encounter Details Date Type Department Care Team (Late st Contact Info) Description 01/18/2021 Hospital Encounter [facility] OUTSIDE [address] [place] [phone] Jesus Lance MD [address] [place] [phone] [email or web address] [email or web address]. [facility] Social History Tobacco Use Types Packs/Day Years Used Date Smoking Tobacco: Former Smokeless Tobacco: Never Comments:quit 1990 Alcohol Use Standard Drinks/Week Comments Not Currently 0 (1 standard drink = 0.6 oz pur e alcohol) very infrequently Education Answer Date Recorded Are you interested in more education? Not on mirza e 09/30/2022 Are you concerned about learning? Not on file 09/30/2022 No 09/30/2022 No 09/30/2022 Digital Access Answer Date Recorded No 10/22/2022 No 10/22/2022 Reliable internet access at home? Not on file 10/22/2022 Device with a working camera? Not on file Intimate Partner Violence Answer Date R ecorded Are you denied basic needs s uch as food, clothing, or medical care? No 11/05/2023 In the past 12 months have y ou been in a relationship with a person who hurts, threatens, or tries to control you? No 11/05/2023 Are you denied basic needs s uch as food, clothing, or medical care? No 11/05/2023 In the past 12 months have y ou been in a relationship with a person who hurts, threatens, or tries to control you? No 11/05/2023 Comments No Sex and Gender Information Value Date Recorded Sex Assigned at Female 12/27/2020 8:05 AM EDT Legal Sex Female 5:58 PM EST Gender Identity Female 12/27/2020 8:05 AM EDT Sexual Orientation Straight 12/27/2020 8: 05 AM EDT documented as of this encounter Functional Status * Calculated C-SSRS Risk Score (Lifetime/Recent) Answer Date of Assessment Author No Risk Indicated 11/05/2023 10:21 AM EDT Ric Pierce RN * [place] Suicide Severity Rating Scale (Screener/Recent Self-Report) Question Answer Date of Assessment Author 1. Wish to be (Past 1 Month) No 024 10:21 AM EDT Ric Pierce, SHERLEY 2. Non-Specific Active Suici adrianna Thoughts (Past 1 Month) No 11/05/2023 10:21 AM EDT Ric Pierce , SHERLEY 6. Suicidal Behavior (Lifetime) No 10:21 AM EDT Ric Pierce RN documented as of this encounter Plan of Treatment Not on file documented as of this encounter Procedures Procedure Name Priority Date/Time Associated Diagnosis Comments MRI NECK OUTSIDE WITH INTERPRETATION OR CONSULT Routine 01/18/2021 12:00 AM EDT Thyroglossal duct cyst documented in this encounter Results * MRI Neck Outside With Interpretation Or Consult (01/18/2021 12:00 AM EDT) 05/06/2021 12:3 7 PM EST Impressions [facility] - 05/06/2021 12:41 PM EST Multiple cysts in the floor of mouth, tongue base, right mylohyoid, and prehyoid soft tissues. No associated solid enhancement is identified. Given the patient's history of thyroglossal duct cyst, these may reflect a thyroglossal duct cysts though the anterior position within the floor of mouth is somewhat unusual. Low flow vascular malformation would be an additional diagnostic consideration. Narrative [facility] - 05/06/2021 12:41 PM EST MRI NECK OUTSIDE WITH INTERPRETATION OR CONSULT TECHNIQUE: Multi-sequence, multi-planar MRI of the neck was performed intravenous contrast. COMPARISON: No prior exams available this institution for comparison. FINDINGS: Aerodigestive Tract: There are multiple well-circumscribed T2 hyperintense nodules in the floor of mouth and tongue base. The largest of these measures 1.2 cm. There is an additional small nodule in the right mylohyoid and there is a small cystic nodule anterior to the hyoid bone. If there is no solid enhancing tissue associated with any of these lesions. The aerodigestive tract is otherwise unremarkable. Lymph Nodes: Normal. There are no nodes meeting imaging criteria for pathologic involvement. Salivary Glands: Normal. No mass or abnormal enhancement. Thyroid Gland: There is a left thyroid nodule which is not well characterized on this exam. Vessels: The major cervical flow voids are present. Paranasal Sinuses: Normal. No mucosal inflammation or mass. Brain and Orbits: Normal. No detectable abnormality is present in the imaged portions of the brain and orbits. Bones and Soft Tissues: Normal. No marrow-replacing lesions are present. Procedure Note Augusta Lomeli MD - 05/06/2021 MRI NECK OUTSIDE WITH INTERPRETATION OR CONSULT TECHNIQUE: Multi-sequence, multi-planar MRI of the neck was performedintravenous contrast. COMPARISON: No prior exams available this institution for comparison. FINDINGS: Aerodigestive Tract: There are multiple well-circumscribed T2 hyperintensenodules in the floor of mouth and tongue base. The largest of thesemeasures 1.2 cm. There is an additional small nodule in the rightmylohyoid and there is a small cystic nodule anterior to the hyoid bone.If there is no solid enhancing tissue associated with any of theselesions. The aerodigestive tract is otherwise unremarkable. Lymph Nodes: Normal. There are no nodes meeting imaging criteria forpathologic involvement. Salivary Glands: Normal. No mass or abnormal enhancement. Thyroid Gland: There is a left thyroid nodule which is not wellcharacterized on this exam. Vessels: The major cervical flow voids are present. Paranasal Sinuses: Normal. No mucosal inflammation or mass. Brain and Orbits: Normal. No detectable abnormality is present in theimaged portions of the brain and orbits. Bones and Soft Tissues: Normal. No marrow-replacing lesions are present. IMPRESSION: Multiple cysts in the floor of mouth, tongue base, right mylohyoid, andprehyoid soft tissues. No associated solid enhancement is identified.Given the patient's history of thyroglossal duct cyst, these may reflect athyroglossal duct cysts though the anterior position within the floor ofmouth is somewhat unusual. Low flow vascular malformation would be anadditional diagnostic consideration. 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 It is not the complete legal health record.[facility]
--- OUTSIDE RECORDS SUMMARY | 2021-05-09 | XMS_ITS | Encounter Summary ---
Author Organization [facility] Address [address] [place] [address] [place] [address] Phone Care Team Providers Care Insurance Claim Representative Name Role Phone Regina Paz MD Primary Care Provider [phone] Encounter Details Date Type Department Care Team (Late st Contact Info) Description 05/09/2021 Hospital Encounter [facility] OUT[facility] [address] [place] [address] Jesus Lance MD [address] [place] [address] [email or web address] [facility] Social History Tobacco Use Types Packs/Day [...] 10:21 AM EDT Ric Pierce RN * [place] Suicide Severity Rating Scale (Screener/Recent Self-Report) Question [...] EST) 07/16/2021 12:1 4 PM EST Impressions [facility] - 07/16/2021 12:23 PM EST 1. Decrease in size of 2 cysts within the tongue. The most posterior cyst in the tongue base is not significantly changed. Narrative [facility] - 07/16/2021 12:23 PM EST MRI [...] maximum dimension is not significantly changed, currently egsmwhbfa01.6 mm in maximum dimension. 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 It is not the complete legal health record.[facility]
--- OUTSIDE RECORDS SUMMARY | 2021-12-15 23:00 | XMS_ITS | Encounter Summary ---
Author Organization [facility] Address [address] [place] [address] [place] [address] Phone Care Team Providers Care Exterminator Name Role Phone Regina Paz MD Primary Care Provider [phone] Encounter Details Date Type Department Care Team (Late st Contact Info) Description 12/16/2021 Hospital Encounter [facility] OUTSIDE [address] [place] [address] Jesus Lance MD [address] [place] [phone] [email or web address] Social History Tobacco Use Types Packs/Day [...] 10:21 AM EDT Ric Pierce RN * [place] Suicide Severity Rating Scale (Screener/Recent Self-Report) Question Answer Date of Assessment Author 1. Wish to be (Past 1 Month) No 024 10:21 AM EDT Ric Pierce, SHERLEY 2. Non-Specific Active Suici adrianna Thoughts (Past 1 Month) No 11/05/2023 10:21 AM EDT Ric Pierce , SHERLEY 6. Suicidal Behavior (Lifetime) No 4 10:21 AM EDT Ric Pierce, SHERLEY documented as of this encounter Plan of Treatment Not on file documented as of this encounter Procedures Procedure Name Priority Date/Time Associated Diagnosis Comments MRI FACE OUTSIDE (NO INTERPRETATION) Routine 12/16/2021 12:00 AM EDT documented in this encounter Results * MRI Face Outside (No Interpretation) (12/16/2021 12:00 AM EDT) Narrative [facility] - 01/02/2022 2:04 PM EDT This study is for PACS storage only and not for interpretation. us Jesus Lance MD IMG OUTSIDE IMAGING W/OUT IN TERPRETATION Final Result [facility] documented in this encounter Visit Diagnoses Not on filedocumented in this encounter Care Teams Exterminator Relationship Specialty Start Date End Date Regina aPz MD [address] [place] [address] [email or web address] PCP - General Internal Medicine 12/27/20 documented as of this encounter Additional Source Comments The information contained in this document represents components of the legal health record. It is not the complete legal health record.[facility]
--- OUTSIDE RECORDS SUMMARY | 2021-12-15 23:05 | XMS_ITS | Encounter Summary ---
Author Organization [facility] Address [address] [place] [address] [place] [phone] Phone Care Team Providers Care Agricultural Engineer Name Role Phone Regina Paz MD Primary Care Provider [phone] Encounter Details Date Type Department Care Team (Late st Contact Info) Description 12/16/2021 12:05 AM EDT Hospital Encounter [facility] OUTSIDE [address] [place] [address] Jesus Lance MD [address] [place] [address] [email or web address] Social History Tobacco Use Types Packs/Day [...] 10:21 AM EDT Ric Pierce RN * [place] Suicide Severity Rating Scale (Screener/Recent Self-Report) Question [...] glands documented in this encounter Care Teams Agricultural Engineer Relationship Specialty Start Date End Date Regina Paz MD [address] [place] [phone] [email or web address] PCP - General Internal Medicine 12/27/20 documented as of this encounter Additional Source Comments The information contained in this document represents components of the legal health record. It is not the complete legal health record.[facility]
--- NOTE | ~2025-05-09 | CT_ITS ---
CLINICAL HISTORY: R91.1 - Solitary pulmonary nodule CT chest without contrast Comparison: CR/LA/SR - XR CHEST 2V - 04/17/24 10:[address]/REG/LA/SR - CT CHEST WITHOUT IV CONTRAST - 01/02/24 07:[address]/SR - CT CHEST ANGIOGRAPHY WITH IV CONTRAST - 10/12/23 08:[address]/REG/LA/SR - CT CHEST WO IV CON - 08/11/23 17:38 EDT Findings: The heart is normal size. The visualized thyroid and mediastinum are unremarkable. There are 2 stable solid 4 mm right lower lobe pulmonary nodules (series 5, image 75 and 77). Mild pulmonary emphysema. Calcified granuloma in the left lower lobe of the lung, unchanged. Cholecystectomy. The bones are intact. IMPRESSION: There are 2 stable solid 4 mm right lower lobe pulmonary nodules (series 5, image 75 and 77). Per Fleischner Guidelines, no further follow-up is required. This document has been electronically signed by: Dinesh Russell DO on 05/11/2025 11:33:08
--- OUTSIDE RECORDS SUMMARY | 2025-05-09 08:56 | XMS_ITS | Clinical Summary ---
Author Organization [facility] Address [address] [place] [address] Care Team Providers Care Reinforcing Steel Erector Name Role Phone Regina Paz Primary Care Provider [phone] Allergies Active Allergy Reactions Criticality Noted Date [...] Screening Completed 05/15/2023 Procedures * Due to [employer] law, this organization might not be sharing negative HIV tests. Procedure Name Priority Date/Time Associated Diagnosis Comments HEPATITIS C ANTIBODY W/REFLEX TO HCV RNA, QUANTITATIVE PCR Routine 05/15/2023 10:55 AM EST Pericarditis, unspecified chronicity, unspecified type from Last 3 Months or Most Recently Relevant to Health Maintenance Results * Due to [employer] law, this organization might not be sharing negative HIV tests. * Hepatitis C Antibody w/Reflex to HCV RNA, Quantitative PCR (05/15/2023 10:55 AM EST) Hepatitis C Antibody NON-REACT LIOR NON-REACT LIOR 05/15/2023 10:28 PM EST [employer] Comment: HCV antibody was non-reactive. There is no laboratory evidence of HCV infection. In most cases, no further action is required. However, if recent HCV exposure is suspected, a test for HCV RNA (test code 76109) is suggested. For additional information please refer to http://education.PopJax/faq/VIB14m0 (This link is being provided for informational/ educational purposes only.) Blood Structure of peripheral vein / Unknown Venipuncture / Unknown 05/15/2023 10:55 AM EST 05/15/2023 11:27 AM EST [facility] 05/15/2023 10:28 PM EST [facility] Received Date: us Violeta Quintana MD LAB BLOOD ORDERABLES Final Re sult [facility] [address] [facility] [address]rd [address], [place] [address], [place] [phone] [employer] [facility] [address] [facility] 3rd [address], [place] [address], [place] [phone] from Last 3 Months or Most Recently Relevant to Health Maintenance [place] [address] [address] [place] [address] , [place] [address] Care Teams Reinforcing Steel Erector Relationship Specialty Start Date End Date Regina Paz [address] [place] [address] PCP - General Pediatrics 12/21/22
--- OUTSIDE RECORDS SUMMARY | 2025-05-09 08:56 | XMS_ITS | Encounter Summary ---
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 on file documented as of this encounter Plan of Treatment Upcoming Encounters Date Type Department Care Team (Late st Contact Info) Description 05/15/2025 1:45 PM EST Office Visit [facility] OPTOMETRY [address] [place] [address] Tessa Randall, OD [address] [place] [address] 06/19/2025 4:00 PM EST Office Visit [facility] DENTAL [address] [place] [address] Julissa Macedo LLD 9 [place] [address] 08/12/2025 8:30 AM EDT Office Visit [facility] OPTOMETRY [address] [place] [address] Tessa Randall, OD [address] [place] [address] 09/25/2025 9:30 AM EDT Office Visit [facility] MEDICAL [address] [place] [address] Regina Paz MD [address] [place] [address] documented as of this encounter Procedures Procedure [...] documented as of this encounter Care Teams Oracle Software Engineer Relationship Specialty Start Date End Date Regina Paz MD [address] [place] [address] PCP - General Internal Medicine 06/09/22 documented as of this encounter
--- OUTSIDE RECORDS SUMMARY | 2025-05-09 08:56 | XMS_ITS | Encounter Summary ---
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 on file documented as of this encounter Plan of Treatment Upcoming Encounters Date Type Department Care Team (Late st Contact Info) Description 05/15/2025 1:45 PM EST Office Visit [facility] OPTOMETRY [address] [place] [address] Tessa Randall, OD [address] [place] [address] 06/19/2025 4:00 PM EST Office Visit [facility] DENTAL [address] [place] [address] Julissa Macedo LLD 9 [place] [address] 08/12/2025 8:30 AM EDT Office Visit [facility] OPTOMETRY [address] [place] [address] Tessa Randall, OD [address] [place] [address] 09/25/2025 9:30 AM EDT Office Visit [facility] MEDICAL [address] [place] [address] Regina Paz MD [address] [place] [address] documented as of this encounter Procedures Procedure [...] documented as of this encounter Care Teams Curriculum And Instruction Specialist Relationship Specialty Start Date End Date Regina Paz MD [address] [place] [address] PCP - General Internal Medicine 06/09/22 documented as of this encounter
--- OUTSIDE RECORDS SUMMARY | 2025-05-09 08:57 | XMS_ITS | Clinical Summary ---
Author Organization [facility] Prior to 10/25/24 Address [address] [place] [address] Care Team Providers Care Information Security Analyst Name Role Phone Regina Paz MD Primary Care Provider [phone] Social History Tobacco Use Types Packs/Day Years [...] age to complete this topic Care Teams Information Security Analyst Relationship Specialty Start Date End Date Regina Paz MD [address] [place] [address] PCP - General Internal Medicine 09/02/20
--- OUTSIDE RECORDS SUMMARY | 2025-05-09 08:57 | XMS_ITS | Encounter Summary ---
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 file documented as of this encounter Plan of Treatment Upcoming Encounters Date Type Department Care Team (Late st Contact Info) Description 05/15/2025 1:45 PM EST Office Visit [facility] OPTOMETRY 73 [place] [address] Tessa Randall, OD [address] [place] [address] 06/19/2025 4:00 PM EST Office Visit [facility] DENTAL 73 [place] [address] Julissa Macedo LLD 9 [place] [address] 08/12/2025 8:30 AM EDT Office Visit [facility] OPTOMETRY [address] [place] [address] Tessa Randall, OD [address] [place] [address] 09/25/2025 9:30 AM EDT Office Visit [facility] MEDICAL [address] [place] [address] Regina Paz MD [address] [place] [address] documented as of this encounter Procedures Procedure [...] Abdomen Computed T omography Regina Paz MD [facility] [place] Final Result documented in this encounter Visit Diagnoses Not on filedocumented in this encounter Additional Health Concerns Assessment Noted Time PHQ-9 Depression Total Score: 12 024 9:05 AM EST documented as of this encounter Care Teams Manager Diabetes Relationship Specialty Start Date End Date Regina Paz MD [address] [place] [address] PCP - General Internal Medicine 06/09/22 documented as of this encounter
--- OUTSIDE RECORDS SUMMARY | 2025-05-09 08:57 | XMS_ITS | Encounter Summary ---
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 on file documented as of this encounter Plan of Treatment Upcoming Encounters Date Type Department Care Team (Late st Contact Info) Description 05/15/2025 1:45 PM EST Office Visit [facility] OPTOMETRY 73 [place] [address] Tessa Randall, OD [address] [place] [address] 06/19/2025 4:00 PM EST Office Visit [facility] DENTAL [address] [place] [address] Julissa Macedo LLD 9 [place] [address] 08/12/2025 8:30 AM EDT Office Visit [facility] OPTOMETRY 73 [place] [address] Tessa Randall, OD [address] [place] [address] 09/25/2025 9:30 AM EDT Office Visit [facility] MEDICAL [address] [place] [address] Regina Paz MD [address] [place] [address] documented as of this encounter Procedures Procedure [...] documented as of this encounter Care Teams Plywood Stock Grader Relationship Specialty Start Date End Date Regina Paz MD [address] [place] [address] PCP - General Internal Medicine 06/09/22 documented as of this encounter
--- OUTSIDE RECORDS SUMMARY | 2025-05-09 08:57 | XMS_ITS | Encounter Summary ---
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 Not on file documented as of this encounter Plan of Treatment Upcoming Encounters Date Type Department Care Team (Late st Contact Info) Description 05/15/2025 1:45 PM EST Office Visit [facility] OPTOMETRY 73 [place] [address] Tessa Randall, OD 73 [place] [address] 06/19/2025 4:00 PM EST Office Visit [facility] DENTAL 73 [place] [address] Julissa Macedo LLD 9 [place] [address] 08/12/2025 8:30 AM EDT Office Visit [facility] OPTOMETRY 73 [place] [address] Tessa Randall, OD 73 [place] [address] 09/25/2025 9:30 AM EDT Office Visit [facility] MEDICAL 73 [place] [address] Regina Paz MD 73 [place] [address] documented as of this encounter Procedures Procedure Name Priority Date/Time Associated Diagnosis Comments PULMONARY FUNCTION TESTING Routine 01/01/2025 9:14 AM EDT documented in this encounter Results * Pulmonary function testing (01/01/2025 9:14 AM EDT) Regina Paz MD PFT ORDERABLES Final Result documented in this encounter Visit Diagnoses Not on filedocumented in this encounter Additional Health Concerns Assessment Noted Time PHQ-9 Depression Total Score: 9 12/05/19 25 11:43 AM EDT documented as of this encounter Care Teams Package Line Relief Operator Relationship Specialty Start Date End Date Regina Paz MD 73 [place] [address] PCP - General Internal Medicine 06/09/22 documented as of this encounter
--- OUTSIDE RECORDS SUMMARY | 2025-05-09 08:57 | XMS_ITS | Encounter Summary ---
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 Not on file documented as of this encounter Plan of Treatment Upcoming Encounters Date Type Department Care Team (Late st Contact Info) Description 05/15/2025 1:45 PM EST Office Visit [facility] OPTOMETRY 73 [place] [address] Tessa Randall, OD [address] [place] [address] 06/19/2025 4:00 PM EST Office Visit [facility] DENTAL 73 [place] [address] Julissa Macedo LLD 9 [place] [address] 08/12/2025 8:30 AM EDT Office Visit [facility] OPTOMETRY 73 [place] [address] Tessa Randall, OD [address] [place] [address] 09/25/2025 9:30 AM EDT Office Visit [facility] MEDICAL 73 [place] [address] Regina Paz MD 73 [place] [address] documented as of this encounter Procedures Procedure [...] documented as of this encounter Care Teams Carton Forming Machine Tender Relationship Specialty Start Date End Date Regina Paz MD 73 [place] [address] PCP - General Internal Medicine 06/09/22 documented as of this encounter
--- OUTSIDE RECORDS SUMMARY | 2025-05-09 08:57 | XMS_ITS | Encounter Summary ---
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 on file documented as of this encounter Plan of Treatment Upcoming Encounters Date Type Department Care Team (Late st Contact Info) Description 05/15/2025 1:45 PM EST Office Visit [facility] OPTOMETRY 73 [place] [address] Tessa Randall, OD 73 [place] [address] 06/19/2025 4:00 PM EST Office Visit [facility] DENTAL 73 [place] [address] Julissa Macedo LLD 9 [place] [address] 08/12/2025 8:30 AM EDT Office Visit [facility] OPTOMETRY 73 [place] [address] Tessa Randall, OD 73 [place] [address] 09/25/2025 9:30 AM EDT Office Visit [facility] MEDICAL 73 [place] [address] Regina Paz MD 73 [place] [address] documented as of this encounter Procedures Procedure [...] documented as of this encounter Care Teams Phlebotomy Coordinator Relationship Specialty Start Date End Date Regina Paz MD [address] [place] [address] PCP - General Internal Medicine 06/09/22 documented as of this encounter
--- OUTSIDE RECORDS SUMMARY | 2025-05-09 08:57 | XMS_ITS | Clinical Summary ---
Author Organization [facility] Address [address] [facility] [address] [place] [address] Phone Care Team Providers Care Multimedia Journalist Name Role Phone Regina Paz MD Primary Care Provider [phone] Allergies No known active allergies Medications rosuvastatin [...] Most Recently Relevant to Health Maintenance [place] [address] [place] [address] [place] [address] Care Teams Multimedia Journalist Relationship Specialty Start Date End Date Regina Paz MD [address] [place] [address] [facility] PCP - General Internal Medicine 12/27/20 Additional Source Comments The information contained in this document represents components of the legal health record. It is not the complete legal health record.[facility]
--- OUTSIDE RECORDS SUMMARY | 2025-05-09 08:57 | XMS_ITS | Encounter Summary ---
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 OPTOMETRY 73 [place] [address] Tessa Randall, OD [address] [place] [address] 06/19/2025 4:00 PM EST Office Visit [facility] DENTAL 73 [place] [address] Julissa Macedo LLD 9 [place] [address] 08/12/2025 8:30 AM EDT Office Visit [facility] OPTOMETRY [address] [place] [address] Tessa Randall, OD [address] [place] [address] 09/25/2025 9:30 AM EDT Office Visit [facility] MEDICAL 73 [place] [address] Regina Paz MD 73 [place] [address] documented as of this encounter Procedures Procedure [...] documented as of this encounter Care Teams Sales Ambassador Relationship Specialty Start Date End Date Regina Paz MD [address] [place] [address] PCP - General Internal Medicine 06/09/22 documented as of this encounter
--- OUTSIDE RECORDS SUMMARY | 2025-05-09 08:57 | XMS_ITS | Encounter Summary ---
Author Organization [employer] Address [address] [place] [address] 7t [place] [address] Care Team Providers Care Audit Clerks Supervisor Name Role Phone Regina Paz MD Primary Care Provider [phone] Encounter Details Date Type Department Care Team (Late st Contact Info) Description 03/23/2025 Results Follow-Up 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 OPTOMETRY [address] [place] [address] Tessa Randall, OD [address] [place] [address] 06/19/2025 4:00 PM EST Office Visit [facility] DENTAL [address] [place] [address] Julissa Macedo LLD 9 [place] [address] 08/12/2025 8:30 AM EDT Office Visit [facility] OPTOMETRY 73 [place] [address] Tessa Randall, OD [address] [place] [address] 09/25/2025 9:30 AM EDT Office Visit [facility] MEDICAL 73 [place] [address] Regina Paz MD 73 [place] [address] documented as of this encounter Visit Diagnoses Not on filedocumented in this encounter Additional Health Concerns Assessment Noted Time PHQ-9 Depression Total Score: 9 12/05/19 25 11:43 AM EDT documented as of this encounter Care Teams Audit Clerks Supervisor Relationship Specialty Start Date End Date Regina Paz MD [address] [place] [address] PCP - General Internal Medicine 06/09/22 documented as of this encounter
--- OUTSIDE RECORDS SUMMARY | 2025-05-09 08:57 | XMS_ITS | Encounter Summary ---
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 Not on file documented as of this encounter Plan of Treatment Upcoming Encounters Date Type Department Care Team (Late st Contact Info) Description 05/15/2025 1:45 PM EST Office Visit [facility] OPTOMETRY 73 [place] [address] Tessa Randall, OD [address] [place] [address] 06/19/2025 4:00 PM EST Office Visit [facility] DENTAL 73 [place] [address] Julissa Macedo LLD 9 [place] [address] 08/12/2025 8:30 AM EDT Office Visit [facility] OPTOMETRY 73 [place] [address] Tessa Randall, OD [address] [place] [address] 09/25/2025 9:30 AM EDT Office Visit [facility] MEDICAL 73 [place] [address] Regina Paz MD 73 [place] [address] documented as of this encounter Procedures Procedure [...] documented as of this encounter Care Teams Clerical Administrative Assistant Relationship Specialty Start Date End Date Regian Paz MD [address] [place] [address] PCP - General Internal Medicine 06/09/22 documented as of this encounter
--- OUTSIDE RECORDS SUMMARY | 2025-05-09 08:57 | XMS_ITS | Encounter Summary ---
Author Organization [employer] Address [address] [place] [address] 7 [place] [address] Care Team Providers Care Multimedia Instructional Designer Name Role Phone Regina Paz MD Primary Care Provider [phone] Encounter Details Date Type Department Care Team [...] Description 05/15/2025 1:45 PM EST Office Visit [facility] OPTOMETRY 73 [place] [address] Tessa Randall, JORGITO 73 [place] [address] 06/19/2025 4:00 PM EST Office Visit [facility] DENTAL 73 [place] [address] Julissa Macedo LLD 9 [place] [address] 08/12/2025 8:30 AM EDT Office Visit [facility] OPTOMETRY 73 [place] [address] Tessa Randall, JORGITO 73 [place] [address] 09/25/2025 9:30 AM EDT Office Visit [facility] MEDICAL 73 [place] [address] Regina Paz MD 73 [place] [address] documented as of this encounter Visit Diagnoses Not on filedocumented in this encounter Care Teams Multimedia Instructional Designer Relationship Specialty Start Date End Date Regina Paz MD [address] [place] [address] PCP - General Internal Medicine 06/09/22 documented as of this encounter
--- OUTSIDE RECORDS SUMMARY | 2025-05-09 08:57 | XMS_ITS | Encounter Summary ---
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 file documented as of this encounter Plan of Treatment Upcoming Encounters Date Type Department Care Team (Late st Contact Info) Description 05/15/2025 1:45 PM EST Office Visit [facility] OPTOMETRY 73 [place] [address] Tessa Randall, OD [address] [place] [address] 06/19/2025 4:00 PM EST Office Visit [facility] DENTAL 73 [place] [address] Julissa Macedo LLD 9 [place] [address] 08/12/2025 8:30 AM EDT Office Visit [facility] OPTOMETRY 73 [place] [address] Tessa Randall, OD [address] [place] [address] 09/25/2025 9:30 AM EDT Office Visit [facility] MEDICAL 73 [place] [address] Regina Paz MD 73 [place] [address] documented as of this encounter Procedures Procedure [...] documented as of this encounter Care Teams Uke Operator Relationship Specialty Start Date End Date Regina Paz MD [address] [place] [address] PCP - General Internal Medicine 06/09/22 documented as of this encounter
--- OUTSIDE RECORDS SUMMARY | 2025-05-09 08:57 | XMS_ITS | Encounter Summary ---
Author Organization [employer] Address [address] [place] [address] 7 [place] [address] Care Team Providers Care Computer Systems Designer Name Role Phone Regina Paz MD Primary Care Provider [phone] Encounter Details Date Type Department Care Team [...] [facility] OPTOMETRY 73 [place] [address] Tessa Randall, JORGITO [address] [place] [address] 06/19/2025 4:00 PM EST Office Visit [facility] DENTAL [address] [place] [address] Julissa Macedo LLD 9 [place] [address] 08/12/2025 8:30 AM EDT Office Visit [facility] OPTOMETRY [address] [place] [address] Tessa Randall, OD [address] [place] [address] 09/25/2025 9:30 AM EDT Office Visit [facility] MEDICAL [address] [place] [address] Regina Paz MD [address] [place] [address] documented as of this encounter Visit Diagnoses Not on filedocumented in this encounter Care Teams Computer Systems Designer Relationship Specialty Start Date End Date Regina Paz MD [address] [place] [address] PCP - General Internal Medicine 06/09/22 documented as of this encounter
--- OUTSIDE RECORDS SUMMARY | 2025-05-09 08:57 | XMS_ITS | Encounter Summary ---
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 on file documented as of this encounter Plan of Treatment Upcoming Encounters Date Type Department Care Team (Late st Contact Info) Description 05/15/2025 1:45 PM EST Office Visit [facility] OPTOMETRY 73 [place] [address] Tessa Randall, OD [address] [place] [address] 06/19/2025 4:00 PM EST Office Visit [facility] DENTAL [address] [place] [address] Julissa Macedo LLD 9 [place] [address] 08/12/2025 8:30 AM EDT Office Visit [facility] OPTOMETRY [address] [place] [address] Tessa Randall, OD [address] [place] [address] 09/25/2025 9:30 AM EDT Office Visit [facility] MEDICAL [address] [place] [address] Regina Paz MD [address] [place] [address] documented as of this encounter Procedures Procedure [...] documented as of this encounter Care Teams Teacher Education Instructor Relationship Specialty Start Date End Date Regina Paz MD [address] [place] [address] PCP - General Internal Medicine 06/09/22 documented as of this encounter
--- OUTSIDE RECORDS SUMMARY | 2025-05-09 08:57 | XMS_ITS | Encounter Summary ---
Author Organization [employer] Address [address] [place] [address] 7 [place] [address] Care Team Providers Care Tool Hardener Name Role Phone Regina Paz MD Primary Care Provider [phone] Encounter Details Date Type Department Care Team [...] PM EST Office Visit [facility] OPTOMETRY [address] [place] [address] Tessa Randall, JORGITO 73 [place] [address] 06/19/2025 4:00 PM EST Office Visit [facility] DENTAL [address] [place] [address] Julissa Macedo LLD 9 [place] [address] 08/12/2025 8:30 AM EDT Office Visit [facility] OPTOMETRY [address] [place] [address] Tessa Randall, JORGITO [address] [place] [address] 09/25/2025 9:30 AM EDT Office Visit [facility] MEDICAL [address] [place] [address] Regina Paz MD [address] [place] [address] documented as of this encounter Visit Diagnoses Not on filedocumented in this encounter Care Teams Tool Hardener Relationship Specialty Start Date End Date Regina Paz MD [address] [place] [address] PCP - General Internal Medicine 06/09/22 documented as of this encounter
--- OUTSIDE RECORDS SUMMARY | 2025-05-09 08:57 | XMS_ITS | Encounter Summary ---
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 Not on file documented as of this encounter Plan of Treatment Upcoming Encounters Date Type Department Care Team (Late st Contact Info) Description 05/15/2025 1:45 PM EST Office Visit [facility] OPTOMETRY [address] [place] [address] Tessa Randall, OD [address] [place] [address] 06/19/2025 4:00 PM EST Office Visit [facility] DENTAL [address] [place] [address] Julissa Macedo LLD 9 [place] [address] 08/12/2025 8:30 AM EDT Office Visit [facility] OPTOMETRY [address] [place] [address] Tessa Randall, OD [address] [place] [address] 09/25/2025 9:30 AM EDT Office Visit [facility] MEDICAL [address] [place] [address] Regina Paz MD [address] [place] [address] documented as of this encounter Procedures Procedure [...] documented as of this encounter Care Teams Patient Services Specialist Relationship Specialty Start Date End Date Regina Paz MD [address] [place] [address] PCP - General Internal Medicine 06/09/22 documented as of this encounter
--- OUTSIDE RECORDS SUMMARY | 2025-05-09 08:57 | XMS_ITS | Encounter Summary ---
Author Organization [facility] Address [address] [place] [address] Care Team Providers Care Forestry Supervisor Name Role Phone Regina Paz Primary Care Provider [phone] Reason for Visit * Reason Onset Date Comments PAC RX Refill 10/08/2023 Dr. Abad Borrego calling from [facility] as she needs clarification re: quantity of how many capsule should patient be taking daily. Encounter Details Date Type Department Care Team (Late st Contact Info) Description 10/08/2023 Telephone [facility] [address] [place] [address] Telephone Intake, Staff PAC RX Refill (Dr. Abad Borrego calling from [facility] as she needs clarification re: quantity of [...] EDT Dr. Melgoza patient. Salima calling from [facility] as she needs clarification re: quantity of how many capsule should patient be taking daily. Medication name: NALTREXONE 1.5 MG Salima tel #: [phone]. Thank you-PAC documented in this encounter Plan of Treatment Not on file documented as of this encounter Visit Diagnoses Not on filedocumented in this encounter Care Teams Forestry Supervisor Relationship Specialty Start Date End Date Regina Paz [address] [place] [address] PCP - General Pediatrics 12/21/22 documented as of this encounter
--- OUTSIDE RECORDS SUMMARY | 2025-05-09 08:57 | XMS_ITS | Encounter Summary ---
Author Organization [employer] Address [address] [place] [address] 7 [place] [address] Care Team Providers Care System Administrator Name Role Phone Regina aPz MD Primary Care Provider [phone] Encounter Details Date Type Department Care Team [...] Description 05/15/2025 1:45 PM EST Office Visit [facility] OPTOMETRY [address] [place] [address] Tessa Randall, JORGITO [address] [place] [address] 06/19/2025 4:00 PM EST Office Visit [facility] DENTAL [address] [place] [address] Julissa Macedo LLD [address] [place] [address] 08/12/2025 8:30 AM EDT Office Visit [facility] OPTOMETRY [address] [place] [address] Tessa Randall, OD [address] [place] [address] 09/25/2025 9:30 AM EDT Office Visit [facility] MEDICAL [address] [place] [address] Regina Paz MD [address] [place] [address] documented as of this encounter Visit Diagnoses Not on filedocumented in this encounter Care Teams System Administrator Relationship Specialty Start Date End Date Regina Paz MD [address] [place] [address] PCP - General Internal Medicine 06/09/22 documented as of this encounter
--- OUTSIDE RECORDS SUMMARY | 2025-05-09 08:57 | XMS_ITS | Encounter Summary ---
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 on file documented as of this encounter Plan of Treatment Upcoming Encounters Date Type Department Care Team (Late st Contact Info) Description 05/15/2025 1:45 PM EST Office Visit [facility] OPTOMETRY [address] [place] [address] Tessa Randall, JORGITO [address] [place] [address] 06/19/2025 4:00 PM EST Office Visit [facility] DENTAL [address] [place] [address] Julissa Macedo LLD [address] [place] [address] 08/12/2025 8:30 AM EDT Office Visit [facility] OPTOMETRY [address] [place] [address] Tessa Randall, JORGITO [address] [place] [address] 09/25/2025 9:30 AM EDT Office Visit [facility] MEDICAL [address] [place] [address] Regina Paz MD [address] [place] [address] documented as of this encounter Procedures Procedure [...] documented as of this encounter Care Teams Setter Molding And Coremaking Machines Relationship Specialty Start Date End Date Regina Paz MD [address] [place] [address] PCP - General Internal Medicine 06/09/22 documented as of this encounter
--- OUTSIDE RECORDS SUMMARY | 2025-05-09 08:57 | XMS_ITS | Encounter Summary ---
Author Organization [facility] Address [address] [place] [address] Phone Care Team Providers Care Tram Inspector Name Role Phone Regina aPz MD Primary Care Provider [phone] Encounter Details Date Type Department Care Team (Late st Contact Info) Description 11/05/2023 Procedure Pass [facility], Ct Scan - [address] [address] Social History Tobacco Use Types Packs/Day Years [...] 10:21 AM EDT Ric Pierce RN * [place] Suicide Severity Rating Scale (Screener/Recent Self-Report) Question [...] on filedocumented in this encounter Care Teams Tram Inspector Relationship Specialty Start Date End Date Regina Paz MD [address] [place] [address] [email or web address] PCP - General Internal Medicine 12/27/20 documented as of this encounter Additional Source Comments The information contained in this document represents components of the legal health record. It is not the complete legal health record.[facility]
--- OUTSIDE RECORDS SUMMARY | 2025-05-09 08:57 | XMS_ITS | Clinical Summary ---
Author Organization [employer] Address [address] [place] [address] 7t [place] [address] Care Team Providers Care Wrestling Coach Name Role Phone Regina Paz MD Primary Care Provider [phone] Allergies Active Allergy Reactions Criticality Noted Date [...] Visit [facility] OPTOMETRY [address] [place] [address] Tessa Randall, OD Primary open angle glaucoma (POAG) of left eye, mild stage (Primary Dx) 04/22/2025 Orders Only [facility] [address] [place] [address] Regina Paz MD 04/22/[address] [address] [employer] 04/17/[address] [address] Regina Paz MD Migraine without aura and without status migrainosus, not intractable (Primary Dx) 04/15/2025 Travel 04/01/[address] [address] Regina Paz MD immunization records 03/24/2025 10:00 AM EDT Office Visit [address] [address] Regina Paz MD History of pericarditis (Primary Dx); Immunization due; Autoimmune disorder (CMS/HCC) 03/23/2025 Results Follow-Up [address] [address] Regina Paz MD QuantiFERON -TB Gold Plus, 1 Tube [[id number]] 03/18/2025 Telephone [facility] OPTOMETRY [address] [place] [address] Tessa Randall, OD 03/18/[address] [address] Regina Paz MD request new labs 03/17/2025 Travel 03/15/2025 Orders Only [facility] Information Management [address] [place] [address] Regina Paz MD 03/08/[address] [address] Regina Paz MD 02/12/2025 12:00 PM EDT Office Visit [facility] OPTOMETRY [address] [place] [address] Tessa Randall, OD Glaucoma suspect of both [...] 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 on file [...] Description 05/15/2025 1:45 PM EST Office Visit [facility] OPTOMETRY [address] [place] [address] Tessa Randall, OD [address] [place] [address] 06/19/2025 4:00 PM EST Office Visit [facility] DENTAL [address] [place] [address] Julissa Macedo LLD [address] [place] [address] 08/12/2025 8:30 AM EDT Office Visit [facility] OPTOMETRY [address] [place] [address] Tessa Randall, OD [address] [place] [address] 09/25/2025 9:30 AM EDT Office Visit [facility] MEDICAL [address] [place] [address] Regina Paz MD [address] [place] [address] Health Maintenance Due Date Last Done Comments CT Colonography 1963 Colonoscopy 1963 Colorectal Cancer Screening 1963 FIT DNA/Cologuard 1963 FIT 1963 FOBT 1963 HIV Screening 1963 Sigmoidoscopy 1963 Hepatitis C Screening 09/14/1981 HPV/Cotest 09/14/1993 Zoster Vaccines (1 of 2) 09/14/2013 Cervical Cancer Screening 07/16/2023 Pap Smear 07/16/2023 07/16/2020 Dental X-Ray: Full Mouth 06/02/2025 06/01/2022, 03/0 12/2015 Depression Monitoring 06/06/2025 12/04/2024, 025 Dental [...] Modality Head, Neck Ultrasound Regina Paz MD [facility] [place] PROCEDURES Final Result * (ABNORMAL) CBC auto differential (03/20/2025 11:22 AM EDT) White Blood Cell Count 6.8 3.4 - 10.8 x10E3/uL [facility] Red Blood Cell Count 4.20 3.77 - 5.28 x10E6/uL [facility] Hemoglobin 14.2 11.1 - 15.9 g/dL [facility] Hematocrit 41.6 34.0 - 46.6 % [facility] MCV 99(H) 79 - 97 fL [facility] MCH 33.8(H) 26.6 - 33.0 pg [facility] MCHC 34.1 31.5 - 35.7 g/dL [facility] RDW 12.5 11.7 - 15.4 % [facility] Platelet Count 174 150 - 450 x10E3/uL [facility] Neutrophils 60 Not Estab. % [facility] Lymphocytes 26 Not Estab. % [facility] Monocytes 8 Not Estab. % [facility] Eosinophils 5 Not Estab. % [facility] Basophils 1 Not Estab. % [facility] Absolute Neutrophils 4.1 1.4 - 7.0 x10E3/uL [facility] Absolute Lymphocytes 1.8 0.7 - 3.1 x10E3/uL [facility] Absolute Monocytes 0.6 0.1 - 0.9 x10E3/uL [facility] Absolute Eosinophils 0.3 0.0 - 0.4 x10E3/uL [facility] Absolute Basophils 0.1 0.0 - 0.2 x10E3/uL [facility] Immature Granulocytes 0 Not Estab. % [facility] Immature Grans (Abs) 0.0 0.0 - 0.1 x10E3/uL [facility] Blood Venous blood specimen / Unknown 03/20/2025 11:22 AM EDT 03/20/2025 Narrative Resulting Agency Comment Performed at: 01 - [facility] [address] [place] [id number] Pallet Stone Positioner: Yi Willett MD, Phone: [phone] Regina Paz MD LAB BLOOD ORDERABLES Final Resul t Performing Organization Address City/[facility]/ZIP Co de Phone Number [address] [phone] * Sedimentation rate, automated (03/20/2025 11:22 AM EDT) Pathologist [facility] Sed Rate By Modified Westergren 7 0 - 40 mm/hr [facility] Blood Venous blood specimen / Unknown 03/20/2025 11:22 AM EDT 03/20/2025 Narrative Resulting Agency Comment Performed at: - [address] [id number] Pallet Stone Positioner: Yi Willett MD, Phone: [phone] Regina Paz MD LAB BLOOD ORDERABLES Final Resul t Performing Organization Address [facility] Co de Phone Number [address] [phone] * C-reactive Protein [[id number]] (03/20/2025 11:22 AM EDT) [facility] C-Reactive Protein 3 0 - 10 mg/L [facility] Blood Venous blood specimen / Unknown 03/20/2025 11:22 AM EDT 03/20/2025 Narrative Resulting Agency Comment Performed at: - [address] [id number] Pallet Stone Positioner: Yi Willett MD, Phone: [phone] us Regina Paz MD LAB BLOOD ORDERABLES Final Resul t Performing Organization Address City/[facility]/ZIP Co de Phone Number [address] [phone] * (ABNORMAL) Comprehensive metabolic panel (03/20/2025 11:22 AM EDT) [facility] Glucose 77 70 - 99 mg/dL [facility] Urea Nitrogen (BUN) 18 8 - 27 mg/dL [facility] Creatinine, Serum 0.90 0.57 - 1.00 mg/dL [facility] eGFR 73 >59 mL/min/1.7 3 [facility] BUN/Creatinine Ratio 20 12 - 28 [facility] Sodium 141 134 - 144 mmol/L [facility] Potassium 4.2 3.5 - 5.2 mmol/L [facility] Chloride 108(H) 96 - 106 mmol/L [facility] Anion Gap 14.0 10.0 - 18.0 mmol/L [facility] Carbon Dioxide 19(L) 20 - 29 mmol/L [facility] Calcium 9.0 8.7 - 10.3 mg/dL [facility] Protein, Total 6.4 6.0 - 8.5 g/dL [facility] Albumin 4.4 3.9 - 4.9 g/dL [facility] Globulin 2.0 1.5 - 4.5 g/dL [facility] Bilirubin, Total 0.3 0.0 - 1.2 mg/dL [facility] Alkaline Phosphatase 60 49 - 135 IU/L [facility] AST 28 0 - 40 IU/L [facility] ALT 56(H) 0 - 32 IU/L [facility] Blood Venous blood specimen / Unknown 03/20/2025 11:22 AM EDT 03/20/2025 Narrative Resulting Agency Comment Performed at: 01 - [facility] [address] [place], [place] [id number] Pallet Stone Positioner: Yi Willett MD, Phone: [phone] us Regina Paz MD LAB BLOOD ORDERABLES Final Resul t [facility] [address] [place] [address] * QuantiFERON-TB Gold Plus (03/20/2025 11:21 AM EDT) [facility] QuantiFERON Criteria [facility] Comment: QuantiFERON-TB Gold Plus is a qualitative [...] QuantiFERON TB1 Ag Value 0.07 IU/mL [facility] QuantiFERON TB2 Ag Value 0.06 IU/mL [facility] QuantiFERON Nil Value 0.01 IU/mL [facility] QuantiFERON Mitogen Value >10.00 IU/mL [facility] 03/20/2025 11:2 1 AM EDT 03/20/2025 Narrative Resulting Agency Comment Performed at: - [address] [id number] Pallet Stone Positioner: Yi Willett MD, Phone: [phone] Regina Paz MD HISTORICAL/NON ORDERABLE LABS Fi nal Result Performing Organization Address [facility] Co de Phone Number [address] [phone] * QuantiFERON??-TB Gold Plus, 1 Tube [[id number]] (03/20/2025 11:21 AM EDT) [facility] QuantiFERON Incubation Incubation performed. [facility] Quantiferon -TB Gold Plus, 1 Tube Negative Negative [facility] Comment: No response to M tuberculosis antigens detected. Infection with M tuberculosis is unlikely, but high risk individuals should be considered for additional testing (ATS/IDSA/CDC Clinical Practice Guidelines, 2017). The reference range is an Antigen minus Nil result of <0.35 IU/mL. Chemiluminescence immunoassay methodology Blood Venous blood specimen / Unknown 03/20/2025 11:21 AM EDT 03/20/2025 Narrative Resulting Agency Comment Performed at: - [address] [id number] Pallet Stone Positioner: Yi Willett MD, Phone: [phone] Regina Paz MD LAB BLOOD ORDERABLES Final Resul t Performing Organization Address [facility] Co de Phone Number [facility] [address] [phone] * MAMMO SCREENING BILATERAL (03/06/2025 10:46 AM EDT) Anatomical Region Laterality Modality Mammography Result [facility] Regina Paz MD [facility] BI PROCEDURES Final Result * Automated Visual [...] specimen / Unknown Result [facility] Historical Provider LAB BLOOD ORDERABLES Laly l Result * BI Mammogram Screening Bilateral (02/29/2024 3:34 PM EDT) Anatomical Region Laterality Modality Breast Bilateral Mammography Result [facility] Regina Paz MD [facility] BI PROCEDURES Final Result * Hm Pap Smear (07/16/2020) Pap smear NEGATIVE Result [facility] Historical Provider HEALTH MAINTENANCE Final Result from Last 3 Months or Most Recently Relevant to Health Maintenance Insurance [employer] [facility] Care Teams Wrestling Coach Relationship Specialty Start Date End Date Regina Paz MD [address] [facility] [place] [address] PCP - General Internal Medicine 06/09/22
--- OUTSIDE RECORDS SUMMARY | 2025-05-09 08:57 | XMS_ITS | Encounter Summary ---
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 documented in this encounter Plan of Treatment Upcoming Encounters Date Type Department Care Team (Late st Contact Info) Description 05/15/2025 1:45 PM EST Office Visit [facility] OPTOMETRY [address] [place] [address] Tessa Randall, OD [address] [place] [address] 06/19/2025 4:00 PM EST Office Visit [facility] DENTAL [address] [place] [address] Julissa Macedo LLD [address] [place] [address] 08/12/2025 8:30 AM EDT Office Visit [facility] OPTOMETRY [address] [place] [address] Tessa Randall, OD [address] [place] [address] 09/25/2025 9:30 AM EDT Office Visit [facility] MEDICAL [address] [place] [address] Regina Paz MD [address] [place] [address] documented as of this encounter Visit Diagnoses Not on filedocumented in this encounter Additional Health Concerns Assessment Noted Time PHQ-9 Depression Total Score: 9 12/05/19 25 11:43 AM EDT documented as of this encounter Care Teams Computer Assembler Relationship Specialty Start Date End Date Regina Paz MD [address] [place] [address] PCP - General Internal Medicine 06/09/22 documented as of this encounter
--- OUTSIDE RECORDS SUMMARY | 2025-05-09 08:57 | XMS_ITS | Encounter Summary ---
Author Organization [employer] Address [address] [place] [address] 7 [place] [address] Care Team Providers Care Brim Raiser Name Role Phone Regina Paz MD Primary Care Provider [phone] Encounter Details Date Type Department Care Team [...] Description 05/15/2025 1:45 PM EST Office Visit [facility] OPTOMETRY [address] [place] [address] Tessa Randall, JORGITO [address] [place] [address] 06/19/2025 4:00 PM EST Office Visit [facility] DENTAL [address] [place] [address] Julissa Macedo LLD [address] [place] [address] 08/12/2025 8:30 AM EDT Office Visit [facility] OPTOMETRY [address] [place] [address] Tessa Randall, JORGITO [address] [place] [address] 09/25/2025 9:30 AM EDT Office Visit [facility] MEDICAL [address] [place] [address] Regina Paz MD [address] [place] [address] documented as of this encounter Visit Diagnoses Not on filedocumented in this encounter Care Teams Brim Raiser Relationship Specialty Start Date End Date Regina Paz MD [address] [place] [address] PCP - General Internal Medicine 06/09/22 documented as of this encounter
--- OUTSIDE RECORDS SUMMARY | 2025-05-09 08:58 | XMS_ITS | Encounter Summary ---
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 OPTOMETRY [address] [place] [address] Tessa Randall, OD [address] [place] [address] 06/19/2025 4:00 PM EST Office Visit [facility] DENTAL [address] [place] [address] Julissa Macedo LLD [address] [place] [address] 08/12/2025 8:30 AM EDT Office Visit [facility] OPTOMETRY [address] [place] [address] Tessa Randall, OD [address] [place] [address] 09/25/2025 9:30 AM EDT Office Visit [facility] MEDICAL [address] [place] [address] Regina Paz MD [address] [place] [address] documented as of this encounter Procedures Procedure Name Priority Date/Time Associated Diagnosis Comments CT ABDOMEN PELVIS WO CONTRAST Routine 08/11/2023 9:[address] CHEST WO CONTRAST Routine 08/11/2023 8:51 AM EDT documented in this encounter Results * CT Abdomen Pelvis w/o Contrast (08/11/2023 9:26 AM EDT) Anatomical Region Laterality Modality Body, Pelvis, Abdomen Computed T omography us Regina Paz MD [facility] [place] PROCEDURES Final Result * CT Chest w/o Contrast (08/11/2023 8:51 AM EDT) Anatomical Region Laterality Modality Body, Chest Computed Tomogra phy Regina Paz MD [facility] [place] PROCEDURES Final Result documented in this encounter Visit Diagnoses Not on filedocumented in this encounter Additional Health Concerns Assessment Noted Time PHQ-9 Depression Total Score: 12 024 9:05 AM EST documented as of this encounter Care Teams External Auditor Relationship Specialty Start Date End Date Regina Pza MD [address] [place] [address] PCP - General Internal Medicine 06/09/22 documented as of this encounter
--- OUTSIDE RECORDS SUMMARY | 2025-05-09 08:58 | XMS_ITS | Encounter Summary ---
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 Not on file documented as of this encounter Plan of Treatment Upcoming Encounters Date Type Department Care Team (Late st Contact Info) Description 05/15/2025 1:45 PM EST Office Visit [facility] OPTOMETRY [address] [place] [address] Tessa Randall, OD [address] [place] [address] 06/19/2025 4:00 PM EST Office Visit [facility] DENTAL [address] [place] [address] Julissa Macedo LLD [address] [place] [address] 08/12/2025 8:30 AM EDT Office Visit [facility] OPTOMETRY [address] [place] [address] Tessa Randall, OD [address] [place] [address] 09/25/2025 9:30 AM EDT Office Visit [facility] MEDICAL [address] [place] [address] Regina Paz MD [address] [place] [address] documented as of this encounter Procedures Procedure [...] as of this encounter Care Teams Senior Executive Assistant Relationship Specialty Start Date End Date Regina Paz MD [address] [place] [address] PCP - General Internal Medicine 06/09/22 documented as of this encounter
--- OUTSIDE RECORDS SUMMARY | 2025-05-09 08:58 | XMS_ITS | Encounter Summary ---
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 Not on file documented as of this encounter Plan of Treatment Upcoming Encounters Date Type Department Care Team (Late st Contact Info) Description 05/15/2025 1:45 PM EST Office Visit [facility][1] OPTOMETRY [address] [place] [address] Tessa Randall, OD [address] [place] [address] 06/19/2025 4:00 PM EST Office Visit [facility][1] DENTAL [address] [place] [address] Julissa Macedo LLD [address] [place] [address] 08/12/2025 8:30 AM EDT Office Visit [facility][1] OPTOMETRY [address] [place] [address] Tessa Randall, OD [address] [place] [address] 09/25/2025 9:30 AM EDT Office Visit [facility][1] MEDICAL [address] [place] [address] Regina Paz MD [address] [place] [address] documented as of this encounter Procedures Procedure [...] documented as of this encounter Care Teams [employer] Team Member Relationship Specialty Start Date End Date Regina Paz MD [address] [place] [id number] PCP - General Internal Medicine 06/09/22 documented as of this encounter
--- OUTSIDE RECORDS SUMMARY | 2025-05-09 08:58 | XMS_ITS | Encounter Summary ---
Author Organization [facility] Address [address] [place] [phone] Phone Care Team Providers Care Contact Lens Molder Name Role Phone Cheryl Day MD Primary Care Provider Regina Chacko MD Primary Care Provider [phone] Encounter Details Date Type Department Care Team (Late st Contact Info) Description 08/02/2017 Ancillary Orders Virtual Department [address] [place] [address] Cheryl Day MD Breast screening Social History [...] unspecified documented in this encounter Care Teams Contact Lens Molder Relationship Specialty Start Date End Date Cheryl Day MD PCP - General 03/13/17 12/26/20 Regina Paz MD [address] [place] [id number] PCP - General Internal Medicine 12/27/20 documented as of this encounter Additional Source Comments The information contained in this document represents components of the legal health record. It is not the complete legal health record.[facility]
--- OUTSIDE RECORDS SUMMARY | 2025-05-09 08:58 | XMS_ITS | Encounter Summary ---
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 Not on file documented as of this encounter Plan of Treatment Upcoming Encounters Date Type Department Care Team (Late st Contact Info) Description 05/15/2025 1:45 PM EST Office Visit [facility] OPTOMETRY [address] [place] [address] Tessa Randall, OD [address] [place] [address] 06/19/2025 4:00 PM EST Office Visit [facility] DENTAL [address] [place] [address] Julissa Macedo LLD [address] [place] [address] 08/12/2025 8:30 AM EDT Office Visit [facility] OPTOMETRY [address] [place] [address] Tessa Randall, OD [address] [place] [address] 09/25/2025 9:30 AM EDT Office Visit [facility] MEDICAL [address] [place] [address] Regina Paz MD [address] [place] [address] documented as of this encounter Procedures Procedure Name Priority Date/Time Associated Diagnosis Comments XR CHEST 2 VIEWS Routine 04/17/2024 12:12 PM EST documented in this encounter Results * XR Chest 2 Views (04/17/2024 12:12 PM EST) Anatomical Region Laterality Modality Chest Radiographic Yaneli ging us Regina Paz MD IMG XR PROCEDURES Final Result documented in this encounter Visit Diagnoses Not on filedocumented in this encounter Additional Health Concerns Assessment Noted Time PHQ-9 Depression Total Score: 12 024 9:05 AM EST documented as of this encounter Care Teams Corporate Communications Specialist Relationship Specialty Start Date End Date Regina Paz MD [address] [place] [id number] PCP - General Internal Medicine 06/09/22 documented as of this encounter
--- OUTSIDE RECORDS SUMMARY | 2025-05-09 08:58 | XMS_ITS | Encounter Summary ---
Author Organization [facility] Address [address] [place] [phone] Phone Care Team Providers Care Bay Stocker Name Role Phone Cheryl Day MD Primary Care Provider Regina Chacko MD Primary Care Provider [phone] Encounter Details Date Type Department Care Team (Late st Contact Info) Description 08/23/2018 Ancillary Orders Virtual Department [address] [place] [address] Florentino Alba MD [address] [place] [address] Breast screening Social History Tobacco Use Types [...] unspecified documented in this encounter Care Teams Bay Stocker Relationship Specialty Start Date End Date Cheryl Day MD PCP - General 03/13/17 12/26/20 Regina Paz MD [address] [place] [address] PCP - General Internal Medicine 12/27/20 documented as of this encounter Additional Source Comments The information contained in this document represents components of the legal health record. It is not the complete legal health record.[facility]
--- OUTSIDE RECORDS SUMMARY | 2025-05-09 08:58 | XMS_ITS | Encounter Summary ---
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 on file documented as of this encounter Plan of Treatment Upcoming Encounters Date Type Department Care Team (Late st Contact Info) Description 05/15/2025 1:45 PM EST Office Visit [facility] OPTOMETRY [address] [place] [address] Tessa Randall, OD [address] [place] [address] 06/19/2025 4:00 PM EST Office Visit [facility] DENTAL [address] [place] [address] Julissa Macedo LLD [address] [place] [address] 08/12/2025 8:30 AM EDT Office Visit [facility] OPTOMETRY [address] [place] [address] Tessa Randall, OD [address] [place] [address] 09/25/2025 9:30 AM EDT Office Visit [facility] MEDICAL [address] [place] [address] Regina Paz MD [address] [place] [address] documented as of this encounter Procedures Procedure [...] - Misc (05/12/2024 7:26 AM EST) Result [facility] Provider MD LAB BLOOD ORDERABLES Laly l Result * Other Reference Test - Misc (05/06/2024 7:32 AM EST) Result [facility] Provider MD LAB BLOOD ORDERABLES Laly l Result * FSH And LH (05/06/2024 7:27 AM EST) Result [facility] Provider MD LAB BLOOD ORDERABLES Laly l Result * Prolactin (05/06/2024 7:27 AM EST) Blood Venous blood specimen / Unknown Result [facility] Provider MD LAB BLOOD ORDERABLES Laly l Result * Other Reference Test - Misc (05/06/2024 7:27 AM EST) Result [facility] Provider MD LAB BLOOD ORDERABLES Laly l Result * DHEA Sulfate (05/06/2024 7:27 AM EST) Blood Venous blood specimen / Unknown Result [facility] Provider MD LAB BLOOD ORDERABLES Laly l Result documented in this encounter Visit Diagnoses Not on filedocumented in this encounter Additional Health Concerns Assessment Noted Time PHQ-9 Depression Total Score: 12 024 9:05 AM EST documented as of this encounter Care Teams Media Buyer Relationship Specialty Start Date End Date Regina Paz MD [address] [place] [id number] PCP - General Internal Medicine 06/09/22 documented as of this encounter
--- OUTSIDE RECORDS SUMMARY | 2025-05-09 08:58 | XMS_ITS | Encounter Summary ---
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 Not on file Not on file documented as of this encounter Plan of Treatment Upcoming Encounters Date Type Department Care Team (Late st Contact Info) Description 05/15/2025 1:45 PM EST Office Visit [facility] OPTOMETRY [address] [place] [address] Tessa Randall, OD [address] [place] [address] 06/19/2025 4:00 PM EST Office Visit [facility] DENTAL [address] [place] [address] Julissa Macedo LLD [address] [place] [address] 08/12/2025 8:30 AM EDT Office Visit [facility] OPTOMETRY [address] [place] [address] Tessa Randall, OD [address] [place] [address] 09/25/2025 9:30 AM EDT Office Visit [facility] MEDICAL [address] [place] [address] Regina Paz MD [address] [place] [address] documented as of this encounter Procedures Procedure [...] Blood Venous blood specimen / Unknown Result [facility] Provider MD LAB BLOOD ORDERABLES Laly l Result * B Type Natriuretic Peptide (BNP) (06/11/2024 7:56 AM EST) Blood Venous blood specimen / Unknown Result [facility] Provider LAB BLOOD ORDERABLES Laly l Result * DHEA Sulfate (06/10/2024 7:58 AM EST) Blood Venous blood specimen / Unknown Result [facility] Provider LAB BLOOD ORDERABLES Laly l Result * Comprehensive Metabolic Panel (06/10/2024 7:55 AM EST) Blood Venous blood specimen / Unknown Result [facility] Provider MD LAB BLOOD ORDERABLES Laly l Result * C-reactive Protein (06/10/2024 7:55 AM EST) Blood Venous blood specimen / Unknown Result [facility] Provider LAB BLOOD ORDERABLES Laly l Result * Lipid Panel, Standard (06/10/2024 7:55 AM EST) Blood Venous blood specimen / Unknown Result [facility] Provider MD LAB BLOOD ORDERABLES Laly l Result * Cortisol Random (06/10/2024 7:55 AM EST) Historical Provider MD LAB BLOOD ORDERABLES Laly l Result * CBC auto differential (06/10/2024 7:55 AM EST) Blood Venous blood specimen / Unknown [facility] Provider LAB BLOOD ORDERABLES Laly l Result * Sed Rate by Modified [place] (06/10/2024 7:55 AM EST) Blood Venous blood specimen / Unknown [facility] Provider LAB BLOOD ORDERABLES Laly l Result documented in this encounter Visit Diagnoses Not on filedocumented in this encounter Additional Health Concerns Assessment Noted Time PHQ-9 Depression Total Score: 12 024 9:05 AM EST documented as of this encounter Care Teams Controller Instructor Relationship Specialty Start Date End Date Regina Paz MD [address] [place] [id number] PCP - General Internal Medicine 06/09/22 documented as of this encounter
== END 2025-05-09 08:52 | disposition home or self-care (01) ==
LOC: HO.CT 08:51
PROVIDERS: PCP Internal Medicine; Visit Provider Hospitalist
DX: R91.1 Solitary pulmonary nodule (principal)
CPT/HCPCS: 71250

== ENCOUNTER → 2025-05-09 08:53 | Outpatient (BNV) | payer OTHER, SELFPAY | PROVIDERS: PCP Internal Medicine; Visit Provider Family Medicine | DX: R91.8 Other nonspecific abnormal finding of lung field (principal) | CPT/HCPCS: 71250 ==